=== PATIENT | female | born 1975 | race Caucasian/White ===

== ENCOUNTER 2019-12-28 08:49 | Outpatient (REF) | payer OTHER, SELFPAY ==
--- NOTE | 2019-12-28 | US_ITS ---
EXAMINATION: ULTRASOUND-GUIDED RIGHT CHEST WALL LESION CORE AND FINE-NEEDLE BIOPSY. CLINICAL INFORMATION: History of thyroid cancer. Abnormal whole body iodine study with a soft tissue lesion right anterior chest wall. COMPARISON: Nuclear medicine whole body iodine scan from [facility] 12/14/2019 TECHNIQUE: Following explaining ultrasound-guided biopsy procedure, benefits and risk of the right anterior chest wall mass, a written consent was obtained. Patient was placed supine on ultrasound stretcher and preliminary CT imaging was obtained through the chest wall. An optimal site was selected and marked. The marked site was cleaned and draped in usual sterile manner. 1% lidocaine was injected puncture site. A 25-gauge needle connected to syringes were advanced through the skin, subcutis tissues into the right anterior chest wall lesion and a 3 pass fine-needle biopsy was performed. Through a small skin incision a 19-gauge guide was inserted from this skin to the capsule of the lesion. Coaxially an 18-gauge 11 inch long biopsy needle was then inserted into the lesion and a 3 pass core biopsy was performed. Samples were handled by Dr. Rojas in pathology. Postprocedure the guide needle was withdrawn and complete hemostasis achieved. The appendix ultrasound imaging was obtained and was unremarkable. Simple band-aid applied post procedure. Patient tolerated procedure extremely well. FINDINGS: On preliminary ultrasound imaging there is a right anterior chest wall subcutis lesion measuring 1.55 x 1.66 x 0.69 cm. Successful ultrasound-guided trans cutaneous fine-needle and core biopsy performed of right anterior chest wall lesion without immediate complications. IMPRESSION: 1. Successful ultrasound-guided right anterior chest wall lesion, core and fine-needle biopsy performed. 2. Awaiting pathology results.
[2019-12-28] MEDS: Lidocaine HCl 1 % 20 ML VIAL 5 ML SUBCUT (10:49)
[2020-01-03 17:16] LABS: Thyroglobulin, Fine Needle Asp <0.1 ng/mL
== END 2019-12-28 08:50 | disposition home or self-care (01) ==
LOC: HO.US 08:49
PROVIDERS: Visit Provider Internal Medicine
DX: Z85.850 Personal history of malignant neoplasm of thyroid (principal)
CPT/HCPCS: 10005; 36415; 88172; 88173; 88177; 88300; 88305; 88333

== ENCOUNTER 2019-12-29 22:26 | Emergency (ER) | payer OTHER, SELFPAY ==
[2019-12-29 22:37] VITALS: BP 125/83; PULSE 109; RESP 16; TEMP 37; O2SAT 97; BMI 41.7
--- NOTE | 2019-12-29 23:57 | PC.NURSE ---
PT RE[place]TS [place] [facility] [place] BEGINNING LAST NIGHT, BROWN/RED TINGED DRAINAGE, AND FOUL ODOR REPORTED. SITE APPEARS CLEAN AND DRY AT THIS TIME. OPEN TO AIR. PT AWAITING MD PRIMARY EVAL.
[2019-12-30] MEDS: Amoxicillin/Potassium Clav 875 MG TABLET PO (00:45)
[2019-12-30] MEDS: HYDROcodone Bit/Acetam 5/325 TABLET 1 TAB PO (00:46)
[2019-12-30 00:51] VITALS: BP 116/80; PULSE 106; RESP 16; TEMP 37.1; O2SAT 97
--- NOTE | 2019-12-30 01:06 | ED.WOUNDLAC ---
HPI - Wound/Laceration General Chief Complaint: Wound/Laceration <FERNIE Villalobos Last Filed: 12/30/19 01:18> Stated Complaint: post op infection <FERNIE Villalobos Last Filed: 12/30/19 01:18> Time Seen by Provider: 12/30/19 00:03 <FERNIE Villalobos Last Filed: 12/30/19 01:18> Source: patient <Alyssia Chin NP - Last Filed: 12/30/19 01:18> Mode of arrival: ambulatory <FERNIE Villalobos Last Filed: 12/30/19 01:18> Limitations: no limitations <FERNIE Villalobos Last Filed: 12/30/19 01:18> History of Present Illness HPI narrative: patient presents with malodorous purulent drainage from biopsy site. States that she had a biopsy of an abscess under the lateral right breast Earlier today. She is complaining increased pain and concern about a purulent malodorous drainage. She does not have any fevers, chills, nausea, vomiting, diarrhea, chest pain or pressure, palpitations, shortness of breath, or any other concerning symptoms at this time. <FERNIE Villalobos Last Filed: 12/30/19 01:18> Onset (ago): day(s) ( 1) <Alyssia Chin NP - Last Filed: 12/30/19 01:18> Location: other ( Under right lateral breast) <FERNIE Villalobos Last Filed: 12/30/19 01:18> Patient tetanus UTD: Yes <Alyssia Chin NP - Last Filed: 12/30/19 01:18> Associated symptoms: pain <FERNIE Villalobos Last Filed: 12/30/19 01:18> Treatments prior to arrival: other ( biopsy earlier today) <FERNIE Villalobos Last Filed: 12/30/19 01:18> Related Data Home Medications: Previous Rx's Medication Instructions Recorded amoxicillin-pot clavulanate 1 tab PO BID #14 tab 12/30/19 [Augmentin] doxycycline monohydrate 100 mg PO BID 10 Days #20 cap 12/30/19 hydrocodone-acetaminophen 1 tab PO Q8H PRN #7 tab 12/30/19 <Alyssia Chin NP - Last Filed: 12/30/19 01:18> Allergies/Adverse Reactions: Allergies Allergy/AdvReac Type Severity Reaction Status Date / Time oxycodone [OXYCODONE] Allergy Intermediate RASH,SHAKES, Verified 12/29/19 22:37 shakiness, body shaking, tremors <Alyssia Chin NP - Last Filed: 12/30/19 01:18> Review of Systems Review of Systems: Yes all other systems are reviewed and are negative <Alyssia Chin NP - Last Filed: 12/30/19 01:18> Constitutional: Constitutional: Reports no additional constitutional complaints, Denies chills, Denies fatigue and Denies malaise <Alyssia Chin NP - Last Filed: 12/30/19 01:18> Eyes: Eyes: Reports no additional eye complaints <Alyssia Chin NP - Last Filed: 12/30/19 01:18> ENT: Reports system reviewed and no additional complaints, except as documented <Alyssia Chin NP - Last Filed: 12/30/19 01:18> Cardiovascular: Cardiovascular: Reports no additional cardiovascular complaints, Denies irregular heart rhythm, Denies palpitations and Denies dyspnea <Alyssia Chin NP - Last Filed: 12/30/19 01:18> Respiratory: Respiratory: Reports no additional respiratory complaints and Denies dyspnea <Alyssia Chin NP - Last Filed: 12/30/19 01:18> Gastrointestinal: Gastrointestinal: Reports no additional gastrointestinal complaints, Denies abdominal pain, Denies nausea and Denies vomiting <Alyssia Chin NP - Last Filed: 12/30/19 01:18> Genitourinary: Genitourinary: Reports no additional female genitourinary complaints <Alyssia Chin NP - Last Filed: 12/30/19 01:18> Musculoskeletal: Musculoskeletal: Reports no additional musculoskeletal complaints <Alyssia Chin NP - Last Filed: 12/30/19 01:18> Comments: surgery in November for tib-fib fracture, currently wearing a Cam walker boot <Alyssia Chin NP - Last Filed: 12/30/19 01:18> Integumentary/Breasts: Skin/Breast: Reports swelling, Reports lesions, Reports skin pain and Reports wounds <Alyssia Chin NP - Last Filed: 12/30/19 01:18> Neurologic: Reports system reviewed and no additional complaints, except as documented and Reports Abnormal speech present <Alyssia Chin NP - Last Filed: 12/30/19 01:18> Psychiatric: Psychiatric: Reports no additional psychiatric complaints <Alyssia Chin NP - Last Filed: 12/30/19 01:18> Endocrine: Endocrine: Reports no additional endocrine complaints, Denies fatigue and Denies palpitations <Alyssia Chin NP - Last Filed: 12/30/19 01:18> Hematologic/Lymphatic: Hematologic/Lymphatic: Reports no additional hematologic/lymphatic complaints <Alyssia Chin NP - Last Filed: 12/30/19 01:18> [facility] Past Medical History Attestation statement: The following information was validated with the patient. <Alyssia Chin NP - Last Filed: 12/30/19 01:18> Source: old records reviewed <Alyssia Chin NP - Last Filed: 12/30/19 01:18> Medical History: Medical History (Updated 12/30/19 @ 00:29 by Alyssia Chin NP) Abnormal thyroid exam Asthma Fracture HTN (hypertension) Migraine Vertigo <Alyssia Chin NP - Last Filed: 12/30/19 01:18> Social History Social History: Social History Alcohol intake: never Smoking Status: Never smoker Smoked in Last 30 Days: No Use of substances other than those prescribed or required for medical reasons: No Advance Directives: No Advance Directives Information Provided: No <Alyssia Cihn NP - Last Filed: 12/30/19 01:18> Physical Exam Vital Signs and I&O and Narrative: Vital Signs and I&O: Vital Signs Temp 98.7 F 12/30/19 00:51 Pulse 106 H 12/30/19 00:51 Resp 16 12/30/19 00:51 BP 116/80 12/30/19 00:51 Pulse Ox 97 12/30/19 00:51 Intake & Output 1012/29/19 12/30/19 06:59 18:59 06:59 Weight 103.419 kg Body Mass Index 41.7 <Alyssia Chin NP - Last Filed: 12/30/19 01:18> Vital Signs and I&O: Vital Signs Temp 98.7 F 12/30/19 00:51 Pulse 106 H 12/30/19 00:51 Resp 16 12/30/19 00:51 BP 116/80 12/30/19 00:51 Pulse Ox 97 12/30/19 00:51 Intake & Output 12/29/19 12/29/19 12/30/19 06:59 18:59 06:59 Weight 103.419 kg Body Mass Index 41.7 <Adebayo Mcdaniel DO - Last Filed: 12/30/19 01:28> Const: General: cooperative, healthy appearing, comfortable, no acute distress, well developed, awake and Physically active <Alyssia Chin NP - Last Filed: 12/30/19 01:18> Nutritional Appearance: overweight <Alyssia Chin NP - Last Filed: 12/30/19 01:18> Orientation/consciousness: patient oriented x3 <Alyssia Chin NP - Last Filed: 12/30/19 01:18> Limitations: no limitations <Alyssia Chin NP - Last Filed: 12/30/19 01:18> HENMT: Head: Yes normal to inspection <Alyssia Chin NP - Last Filed: 12/30/19 01:18> Ears: hearing grossly normal bilaterally <Alyssia Chin NP - Last Filed: 12/30/19 01:18> Eyes: General: appearance normal, both eyes and all related structures <Alyssia Chin NP - Last Filed: 12/30/19 01:18> Pupils: Equal, round and reactive pupils present <Alyssia Chin NP - Last Filed: 12/30/19 01:18> EOM: EOMs intact bilaterally <Alyssia Chin NP - Last Filed: 12/30/19 01:18> Neck: Neck: Yes normal visual inspection <Alyssia Chin NP - Last Filed: 12/30/19 01:18> Chest: Chest palpation & inspection: normal inspection of the chest <Alyssia Chin NP Last Filed: 12/30/19 01:18> Breast/axilla palpation: normal palpation of the breasts, normal palpation of the axillae and no axillary lymphadenopathy <Alyssia Chin NP Last Filed: 12/30/19 01:18> Resp: Effort & Inspection: normal respiratory effort and able to speak in complete sentences <Alyssia Chin NP Last Filed: 12/30/19 01:18> Auscultation: clear to auscultation bilaterally <Alyssia Chin [facility] Last Filed: 12/30/19 01:18> Cardio: Jugular venous distension: no JVD <Alyssia Chin NP Last Filed: 12/30/19 01:18> Rate: regular rate <Alyssia Chin NP Last Filed: 12/30/19 01:18> Rhythm: regular rhythm <Alyssia Chin NP Last Filed: 12/30/19 01:18> GI: Inspection: Yes normal to inspection <Alyssia Chin NP Last Filed: 12/30/19 01:18> Back/Spine/Pelvis: Thoracic/Lumbar Spine: thoracic and lumbar spine normal to inspection <Alyssia Chin NP Last Filed: 12/30/19 01:18> Skin: Other: less than 1 cm area of pink, non indurated area On the chest wall under the lateral right breast. Needle puncture wound visible, fluid can be expressed from that puncture site, puncture site consistent with needle biopsy from earlier today. <Alyssia Chin NP Last Filed: 12/30/19 01:18> Rashes: no rashes <Alyssia Chin NP Last Filed: 12/30/19 01:18> Trauma: no lacerations or abrasions <Alyssia Chin NP Last Filed: 12/30/19 01:18> Wounds: wounds noted ( ) <Alyssia Chin NP Last Filed: 12/30/19 01:18> Neuro: General: patient oriented x3 and moves all extremities <Alyssia Chin NP Last Filed: 12/30/19 01:18> Cranial nerves: Yes CN's II-XII intact bilaterally, Yes Facial sensation intact/muscles of mastication intact and Yes Equal, round and reactive pupils present <Alyssia Chin NP - Last Filed: 12/30/19 01:18> Cognition (Neuro): normal cognition <Alyssia Chin NP - Last Filed: 12/30/19 01:18> Speech: Abnormal speech present <Alyssia Chin NP - Last Filed: 12/30/19:18> Gait exam (Neuro): Normal gait present ( Walks well with a cam walker boot) <Alyssia Chin NP - Last Filed: 12/30/19 01:18> Extrem: General: Yes normal to inspection <Alyssia Chin NP - Last Filed: 12/30/19 01:18> Psych: Appearance: grossly normal <Alyssia Chin NP - Last Filed: 12/30/19 01:18> Mental Status: mental status grossly normal <Alyssia Chin NP - Last Filed: 12/30/19 01:18> Speech and movement: Normal speech and movement present <FERNIE Villalobos Last Filed: 12/30/19 01:18> Affect: normal affect ( pleasant demeanor) <Alyssia Chin NP - Last Filed: 12/30/19 01:18> Attitude: cooperative <Alyssia Chin NP - Last Filed: 12/30/19 01:18> Thought process: Normal thought process present <FERNIE Villalobos Last Filed: 12/30/19 01:18> Course Course Hospital Course: 42 year female with pain and purulent drainage from biopsy site earlier today. Plan is to clean the site, culture, and treat with p.o. antibiotics and pain management. Patient verbalized understanding of and agrees to plan of care to discharge home. <FERNIE Villalobos Last Filed: 12/30/19 01:18> MDM - Wound/Laceration Differential Diagnosis Differential diagnosis: Likely abscess <FERNIE Villalobos Last Filed: 12/30/19 01:18> Medical Records Attestation: I reviewed the patient's medical records. <FERNIE Villalobos Last Filed: 12/30/19 01:18> Discharge Plan Discharge Clinical Impression: Abscess <Alyssia Chin NP - Last Filed: 12/30/19 01:18> Patient Disposition: Home, Self-Care <Alyssia Chin NP - Last Filed: 12/30/19 01:18> Instructions: Abscess (ED), Warm Compress or Soak (ED) <Alyssia Chin NP - Last Filed: 12/30/19 01:18> Additional Instructions: please follow-up with the provider that biopsied this site. We did take a culture of the fluids that were expressed from this abscess site. Please take antibiotics as directed. You must complete both antibiotics . follow-up with primary care physician as needed. Return to the emergency department for any new, concerning, or worsening symptoms. <Alyssia Chin NP - Last Filed: 12/30/19 01:18> Prescriptions: New doxycycline monohydrate 100 mg capsule 100 mg PO BID 10 Days Qty: 20 RF: 0 amoxicillin-pot clavulanate [Augmentin] 875-125 mg tablet 1 tab PO BID Qty: 14 RF: 0 hydrocodone-acetaminophen 5-300 mg tablet 1 tab PO Q8H PRN (Reason: pain) Qty: 7 RF: 0 <Alyssia Chin NP - Last Filed: 12/30/19 01:18> Interventions: ED Discharge Assessment Last Done: 12/30/19 01:20 <Alyssia Chin NP - Last Filed: 12/30/19 01:18> Discharge Date/Time: 12/30/19 01:21 <Alyssia Chin NP - Last Filed: 12/30/19 01:18>
== END 2019-12-30 01:21 | disposition home or self-care (01) ==
PROVIDERS: Emergency Provider Emergency Medicine; PCP Internal Medicine
DX: L02.818 Cutaneous abscess of other sites (principal); Z98.890 Other specified postprocedural states; I10 Essential (primary) hypertension
CPT/HCPCS: 87071; 87205; 99283; 99284

== ENCOUNTER 2019-12-31 15:31 | Emergency (ER) | payer OTHER, SELFPAY ==
[2019-12-31 16:59] VITALS: BP 137/80; PULSE 98; RESP 18; TEMP 36.8; O2SAT 100; BMI 41.7
--- NOTE | 2019-12-31 22:19 | PC.NURSE ---
[employer] C/O NUMNESS/COLDNESS IN DIGITS/PAIN IN ARM ON RT SIDE. PATIENT VS STABLE. PATIENT NEUROS INTACT. PATIENT UPDATED ON PLAN OF CARE.
[2019-12-31 22:27] VITALS: BP 145/95; PULSE 80; RESP 18; TEMP 37.3
[2019-12-31 23:45] LABS: MANUAL DIFF FLAG NO
[2019-12-31 23:46] LABS: Basophils Absolute Auto 0.1 X10*3/uL (0.0-0.2); Basophils Percent Auto 0.4 % (0-2); Eosinophils Absolute Auto 0.1 X10*3/uL (0.0-0.4); Eosinophils Percent Auto 0.9 % (0-4); Hematocrit 38.1 % (37-47); Hemoglobin 12.8 g/dl (12.0-16.0); Imm Gran Abs Auto 0.05 X10*3/uL (0.00-0.03); Imm Gran Pct Auto 0.4 % (0.0-0.4); Lymphocytes Absolute Auto 2.2 X10*3/uL (1.2-4.9); Lymphocytes Percent Auto 18.1 % (20-40); Mean Corpuscular HGB Conc 33.6 g/dl (31.0-35.0); Mean Corpuscular Hemoglobin 30.8 pg (27.0-33.0); Mean Corpuscular Volume 91.8 fL (80-98); Monocytes Absolute Auto 0.9 X10*3/uL (0.1-1.2); Monocytes Percent Auto 7.7 % (2-11); Neutrophils Absolute Auto 8.8 X10*3/uL (2.0-8.3); Neutrophils Percent Auto 72.5 % (45-73); Platelet Count 367 X10*3/uL (160-400); Red Blood Count 4.15 X10*6/uL (4.20-5.50); Red Cell Distribution Width 11.9 % (11.0-16.0); White Blood Count 12.2 X10*3/uL (4.8-10.8)
[2019-12-31 23:51] LABS: INTERNATIONAL NORM RATIO 1.3 (0.9-1.1); Prothrombin Time 15.7 SEC (10.8-13.0)
[2019-12-31 23:54] LABS: Partial Thromboplastin Time 33.8 SEC (24.1-38.0)
[2020-01-01 02:00] VITALS: BP 97/50; PULSE 97; RESP 16; TEMP 36.7; O2SAT 95
[2020-01-01 02:27] LABS: Anion Gap 14 (12-20); Blood Urea Nitrogen 14 mg/dL (9-16); Calcium 9.2 mg/dL (8.4-10.2); Carbon Dioxide 25 mmol/L (22-29); Chloride 103 mmol/L (96-108); Creatinine Clr Calc Pharmacy 155.9; Estimated Glomerular Filt Rate > 60; Glucose Random 101 mg/dL (60-115); Sodium 138 mmol/L (135-145)
--- NOTE | 2020-01-01 02:41 | ED_ITS ---
HPI - Skin/Abscess/Foreign Bdy General Chief complaint: Skin/Abscess/Foreign Body Stated complaint: Wound Check Time Seen by Provider: 01/01/20 02:40 Source: patient Mode of arrival: ambulatory Limitations: no limitations History of Present Illness HPI narrative: This is a 44-year-old female who presents after having a breast biopsy on Tuesday and then states developing redness and swelling to the right inframammary area with noted purulence discharge and was evaluated on 12/29 here in the emergency department where she underwent an incision and drainage and was discharged on Augmentin/doxycycline. She now presents with persistent discomfort as well as redness and states that she felt warm earlier in the day. Related Data Previous Rx's Medication Instructions Recorded amoxicillin-pot clavulanate 1 tab PO BID #14 tab 12/30/19 [Augmentin] doxycycline monohydrate 100 mg PO BID 10 Days #20 cap 12/30/19 hydrocodone-acetaminophen 1 tab PO Q8H PRN #7 tab 12/30/19 Allergies Allergy/AdvReac Type Severity Reaction Status Date / Time oxycodone [OXYCODONE] Allergy Intermediate RASH,SHAKES, Verified 12/29/19 22:37 shakiness, body shaking, tremors Review of Systems Review of Systems: Pertinent positives and negatives as stated in HPI 10 point review systems is otherwise negative. [facility] Past Medical History Source: nursing notes reviewed Medical History Abnormal thyroid exam Asthma Fracture HTN (hypertension) Migraine Vertigo Social History Social History Alcohol intake: never Smoking Status: Never smoker Use of substances other than those prescribed or required for medical reasons: Unknown Advance Directives: No Advance Directives Information Provided: No Physical Exam Vital Signs and I&O and Narrative: Vital Signs and I&O: Vital Signs Temp 98.1 F 01/01/20 02:00 Pulse 97 01/01/20 02:00 Resp 16 01/01/20 02:00 BP 97/50 L 01/01/20 02:00 Pulse Ox 95 01/01/20 02:00 Intake & Output 12/31/19 12/31/19 01/01/20 06:59 18:59 06:59 Weight 103.419 kg Body Mass Index 41.7 VITAL SIGNS: Reviewed. GENERAL: Well developed, well nourished, in no acute distress. HEAD: Normocephalic/atraumatic, Posterior oropharynx was without edema, erythema or exudate. EYES: PERRLA, Pupils <>, EOMI intact without pain, no nystagmus/pallor/icterus noted EARS: Ext canals without abnormality, TMs non-bulging and non-erythematous NOSE: Nares patent bilateral OROPHARYNX: no oral lesions noted, posterior pharynx clear and non-erythematous without noted tonsillar enlargement/erythema/exudates NECK: Supple, no adenopathy LUNGS: Normal breath sounds. No adventitious sounds or accessory muscle use. SpO2<> CARDIOVASCULAR: Regular rate and rhythm without noted murmurs, no JVD or lower extremity edema. Right chest: There is an area of 1.5 cm by 3 cm of induration without noted fluctuance or observed drainage. ABDOMEN: Soft, non-tender, non-distended with bowel sounds. No rigidity. No guarding. No palpable masses or hernias noted MUSCULOSKELETAL: No tenderness, deformities, or effusions noted on gross inspection. EXTREMITIES: No cyanosis, clubbing or edema. SKIN: Inspection of the skin reveals no rashes, ulcerations, jaundice, pallor, or petechiae. NEUROLOGIC: Alert and oriented x 3. Strength and sensation to light touch were grossly intact x 4. Course Course Course Narrative: This is a 44-year-old female with history and clinical presentation consistent with localized cellulitis without abscess and recently started on antibiotics. There are no concerning symptoms of systemic symptoms and although there is a very mild leukocytosis there is no recent point of reference to determine whether not this is arise or a fall and is consistent with having underwent incision and drainage on 12/29. MDM - Skin/Abscess/Foreign Bdy Lab Data Result diagrams: 12/31/19 23:36 12/31/19 23:41 Labs: Lab Results 12/31/19 12/31/19 12/31/19 Range/Units 23:36 23:36 23:41 WBC 12.2 H (4.8-10.8) X10*3/uL RBC 4.15 L (4.20-5.50) X10*6/uL Hgb 12.8 (12.0-16.0) g/dl Hct 38.1 (37-47) % MCV 91.8 (80-98) fL MCH 30.8 (27.0-33.0) pg MCHC 33.6 (31.0-35.0) g/dl RDW 11.9 (11.0-16.0) % Plt Count 367 (160-400) X10*3/uL MPV 10.0 (9.4-12.3) fL Immature Gran % (Auto) 0.4 (0.0-0.4) % Neut % (Auto) 72.5 (45-73) % Lymph % (Auto) 18.1 L (20-40) % [place] % (Auto) 7.7 (2-11) % Eos % (Auto) 0.9 (0-4) % Baso % (Auto) 0.4 (0-2) % Neut # (Auto) 8.8 H (2.0-8.3) X10*3/uL Lymph # (Auto) 2.2 (1.2-4.9) X10*3/uL [place] # (Auto) 0.9 (0.1-1.2) X10*3/uL Eos # (Auto) 0.1 (0.0-0.4) X10*3/uL Baso # (Auto) 0.1 (0.0-0.2) X10*3/uL Abs Immat Gran (auto) 0.05 H (0.00-0.03) X10*3/uL Absolute Nucleated RBC 0.000 (0.0-0.012) X10*3/uL Nucleated RBC % (auto) 0.0 (0.0-0.2) /100WBC PT 15.7 H (10.8-13.0) SEC INR 1.3 H (0.9-1.1) APTT 33.8 (24.1-38.0) SEC Sodium 138 (135-145) mmol/L Potassium 4.0 (3.3-5.1) mmol/l Chloride 103 (96-108) mmol/L Carbon Dioxide 25 (22-29) mmol/L Anion Gap 14 (12-20) BUN 14 (9-16) mg/dL Creatinine 0.53 (0.5-1.4) mg/dL Estim Creat Clear Calc 155.9 Estimated GFR > 60 Random Glucose 101 (60-115) mg/dL Calcium 9.2 (8.4-10.2) mg/dL Discharge Plan Discharge Clinical Impression: Cellulitis Qualifiers: Site of cellulitis: trunk Site of cellulitis of trunk: chest wall Qualified Code(s): L03.313 - Cellulitis of chest wall Patient Disposition: Home, Self-Care Instructions: Cellulitis (ED) Additional Instructions: 1. resume all home medications as prescribed. 2. continue with warm moist compresses to the area, 5-10 minutes, 3 times a day. 3. please follow-up with your primary care provider tomorrow morning as well as contacting the provider who performed the biopsy for further evaluation. The patient and/or family acknowledge understanding of results (as applicable), diagnosis, treatment plan, need for follow up, and symptoms that should prompt a return to the emergency room. Prescriptions: No Action doxycycline monohydrate 100 mg capsule 100 mg PO BID 10 Days Qty: 20 RF: 0 amoxicillin-pot clavulanate [Augmentin] 875-125 mg tablet 1 tab PO BID Qty: 14 RF: 0 hydrocodone-acetaminophen 5-300 mg tablet 1 tab PO Q8H PRN (Reason: pain) Qty: 7 RF: 0 Referrals: Po,Tamela Enriquez MD [Primary Care Provider] - 2 days
--- NOTE | 2020-01-01 02:54 | PC.NURSE ---
MD at bedside discussing plan to DC home.
[2020-01-01 03:09] VITALS: BP 113/64; PULSE 87; RESP 16; O2SAT 99
== END 2020-01-01 03:19 | disposition home or self-care (01) ==
PROVIDERS: Emergency Provider Student in an Organized Health Care Education/Training Program; PCP Internal Medicine
DX: L03.313 Cellulitis of chest wall (principal); I10 Essential (primary) hypertension; Z79.899 Other long term (current) drug therapy
CPT/HCPCS: 36415; 80048; 85025; 85610; 85730; 99283; 99284

== ENCOUNTER → 2020-01-03 15:19 | Outpatient (BNVA) | payer OTHER, SELFPAY | PROVIDERS: PCP Internal Medicine; Visit Provider Surgery | DX: L02.213 Cutaneous abscess of chest wall (principal) | CPT/HCPCS: 10060; 99203 ==

== ENCOUNTER → 2020-01-09 10:15 | Outpatient (BNVA) | payer OTHER, SELFPAY | PROVIDERS: PCP Internal Medicine; Referring Provider Internal Medicine; Visit Provider Internal Medicine | DX: E89.0 Postprocedural hypothyroidism (principal); E55.9 Vitamin D deficiency, unspecified; Z85.850 Personal history of malignant neoplasm of thyroid | CPT/HCPCS: 99214; Q3014 ==

== ENCOUNTER 2020-04-22 15:48 | Emergency (ER) | payer OTHER, SELFPAY ==
--- NOTE | 2020-04-22 17:27 | CT_ITS ---
EXAMINATION: CT ABDOMEN AND PELVIS WITHOUT CONTRAST CLINICAL INFORMATION: Left flank pain. COMPARISON: December 14, 2018. TECHNIQUE: Contiguous axial thin section helical images of the abdomen and pelvis were performed without oral or IV contrast. The data set was reformatted in the coronal and sagittal planes and reviewed on an independent workstation. DLP: 890 mGy-cm. FINDINGS: The visualized lung bases are clear. The visualized portions of the heart are unremarkable. The liver is of normal size and diffuse decreased attenuation without focal lesions nor intrahepatic biliary ductal dilation. The patient is status post cholecystectomy. Surgical clips are present. The spleen, pancreas, adrenal glands are unremarkable. Both kidneys are of normal size and attenuation. Within the lower pole of the right kidney, there is a 2 mm nonobstructive calculus. There are a few subcentimeter nonobstructive calculi within the left kidney. There is left grade 2 hydroureteronephrosis secondary to an obstructive 4 mm left UVJ calculus. There is left perinephric stranding. There is no abdominal free fluid. There is neither mesenteric nor retroperitoneal lymphadenopathy. Normal unopacified loops of small and large bowel are identified. There is a 5.8 cm left adnexal low-attenuation lesion which is slightly increased in size from prior exam at which time it measured 5.1 cm. An IUD is in place. There is no pelvic free fluid. The urinary bladder is unremarkable. There is neither pelvic nor inguinal lymphadenopathy. Bone windows: Neither sclerotic nor lytic bone lesions are identified. Posterior spinal fusion hardware extending from L5 to S1 is intact without failure or migration. CT/CT abdomen pelvis wo con IMPRESSION: Left grade 2 hydroureteronephrosis secondary to an approximately 4 mm obstructive left UVJ calculus. Hepatic steatosis. Status post cholecystectomy. Nonobstructive renal calculi bilaterally. Slight interval increase in size of left adnexal lesion since the most recent prior exam. Consider correlation with pelvic ultrasound or MRI as deemed clinically appropriate. Automated exposure control (Care Dose) Adjustment of the mA and/or kv according to patient size (this includes techniques or standardized protocols for targeted exams where dose is matched to indication / reason for exam; i.e. extremities or head).
[2020-04-22 17:30] VITALS: BP 148/82; BP 148/85; PULSE 89; RESP 17; RESP 19; TEMP 36.4; O2SAT 99; BMI 41.5
--- NOTE | 2020-04-22 17:30 | ED.FEMALEGU ---
HPI - Female Genitourinary General Chief complaint: Urogenital-Female Stated complaint: Kidney Infection? Time Seen by Provider: 04/22/20 16:34 Source: patient Mode of arrival: ambulatory Limitations: no limitations History of Present Illness HPI Narrative: 45-year-old female who presents emergency department for evaluation of left flank pain , dark urine and frequency. The patient states she has a history of kidney infections and kidney stones. She states that this morning she developed sudden onset of sharp, constant, left flank pain. The pain is 10/10 at its worst. The pain is worse with movement. She denied associated fever chills vomiting. She did have associated nausea, urinary frequency and urinary urgency. The patient states the pain feels similar to when she has had a kidney infection in the past. She believes that her was kidney infection was greater than 3 years prior. Related Data Home Medications Medication Instructions Recorded Confirmed albuterol sulfate 90 mcg/actuation 2 puff INHALATION Q4-6H PRN 01/03/20 01/09/20 aerosol inhaler mbknkhfrvy-sfnozerwjnakz-wkxihqiq 1 cap PO Q4-6H PRN 01/03/20 01/09/20 50 mg-300 mg-40 mg capsule cholecalciferol (vitamin D3) 25 25 mcg PO DAILY 01/03/20 01/09/20 mcg (1,000 unit) capsule meclizine 25 mg tablet 25 mg PO TID 01/03/20 01/09/20 levothyroxine 125 mcg capsule 125 mcg PO DAILY 01/09/20 01/09/20 Previous Rx's Medication Instructions Recorded hydrocodone-acetaminophen 1 tab PO Q8H PRN #7 tab 12/30/19 thyrotropin char 0.9 mg IM DAILY #2 ml 01/09/20 levothyroxine 150 mcg capsule 150 mcg PO QAM #30 cap 01/28/20 naproxen 500 mg tablet 500 mg PO BID PRN #60 tab 01/30/20 sumatriptan succinate 50 mg tablet 50 mg PO DAILY PRN #10 tab 03/24/20 lisinopril 30 mg tablet 30 mg PO DAILY #30 tab 04/03/20 ketorolac 10 mg PO QID 5 Days #20 tab 04/22/20 tamsulosin [Flomax] 0.4 mg PO BEDTIME #30 cap 04/22/20 Allergies Allergy/AdvReac Type Severity Reaction Status Date / Time oxycodone [OXYCODONE] Allergy Intermediate RASH,SHAKES, Verified 01/09/20 09:46 shakiness, body shaking, tremors Review of Systems Review of Systems: Yes all other systems are reviewed and are negative Neurologic: Reports Abnormal speech present [facility] Past Medical History Source: unable to obtain Medical History (Updated 04/22/20 @ 19:23 by Nik Decker MD) Asthma Closed right ankle fracture Family history of von Willebrand disease History of renal calculi History of thyroid cancer HTN (hypertension) Hypercholesterolemia Hypothyroid Impaired glucose tolerance 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 Lumbar disc herniation Migraine Obesity Patellar fracture Pericardial effusion Vertigo Vitamin D deficiency Surgical History History of back surgery History of bladder surgery History of section History of cholecystectomy History of thyroid surgery Family History Family History Daughter Von Willebrand disease Other Family history of bladder cancer Family history of breast cancer Family history of lung cancer Family history of prostate cancer Social History Social History Alcohol intake: never Smoking Status: Never smoker Smoked in Last 30 Days: No Use of substances other than those prescribed or required for medical reasons: No Advance Directives: No Advance Directives Information Provided: No Physical Exam Vital Signs: Vital Signs: Last Vital Signs Temp 97.6 F 04/22/20 17:30 Pulse 89 04/22/20 17:30 Resp 19 04/22/20 17:30 BP 148/85 H 04/22/20 17:30 Pulse Ox 99 04/22/20 17:30 Body Mass Index 41.5 Const: General: cooperative and healthy appearing Nutritional Appearance: obese Orientation/consciousness: oriented to person and oriented to place Limitations: no limitations HENMT: Head: Yes normal to inspection, Yes normocephalic and Yes atraumatic Ears: external ears normal General nose exam: Normal external nose present Face and sinus: Yes normal facial exam Mouth: Normal oral and palatal mucosa present Throat: Yes posterior oropharynx normal Eyes: Periorbital: periorbital findings normal Eyelids: Yes eyelids normal Conjunctivae: conjunctivae normal Sclerae: sclerae normal Corneas: corneas normal Pupils: Equal, round and reactive pupils present Direct Ophthalmoscopy: normal light reflex Neck: Neck: Yes full ROM, Yes no lymphadenopathy, Yes no meningeal signs, Yes trachea midline and Yes supple Chest: Chest palpation & inspection: normal inspection of the chest and normal palpation of entire chest wall Resp: Effort & Inspection: normal respiratory effort and able to speak in complete sentences Auscultation: clear to auscultation bilaterally Cardio: Rate: regular rate Rhythm: regular rhythm Heart sounds: S1 normal heart sound present, S2 normal heart sound present and no murmurs GI: Inspection: Yes normal to inspection Palpation (GI): Soft to palpation, Tenderness to palpation present (GI) suprapubicly (Mild), no guarding, not rigid and No hepatosplenomegaly present : General: Yes CVA tenderness on the left (Moderate) Back/Spine/Pelvis: Back: CVA tenderness Cervical Spine: normal cervical lordosis Thoracic/Lumbar Spine: thoracic and lumbar spine normal to inspection Skin: Lesions: no lesions Rashes: no rashes Wounds: no wounds Neuro: General: oriented to person, oriented to place and no meningeal signs Cranial nerves: Yes CN's II-XII intact bilaterally and Yes Equal, round and reactive pupils present Cognition (Neuro): normal cognition Speech: Abnormal speech present Motor exam (neuro): 5/5 motor strength present throughout Extrem: General: Yes normal to inspection and Yes full ROM Psych: Appearance: well kempt Mental Status: mental status grossly normal Speech and movement: Normal speech and movement present Affect: normal affect Attitude: cooperative Thought process: Normal thought process present Thought content: Normal thought content present Course Course Course Narrative: 45-year-old female with a history kidney stones and kidney infections in the past who presents with sudden onset of left-sided flank pain, dark urine, urinary frequency and urgency. Physical examination did reveal suprapubic tenderness as well as left CVA tenderness. I did order workup to include blood work, urinalysis, urine and CT scan of the abdomen pelvis to evaluate for possible kidney stone versus pyelonephritis. 1919: The patient's laboratory evaluation revealed normal kidney function, she has a slight elevation in her AST and ALT of 35 and 37, urinalysis was positive for blood, microscopic revealed 30-49 RBCs, 0-[address] scan of the abdomen pelvis without IV contrast revealed a 4 mm left ureteral stone with hydroureter, perinephric stranding, bilateral renal calculi and a 5.8 cm left ovarian cyst. The patient's ureteral stone explains the patient's pain. The patient is currently pain-free after receiving IV Toradol. The patient states that she has taken oral Toradol in the past for kidney stones and this has helped. The patient will be given a prescription for Toradol and for Flomax. She was advised to strain her urine and to follow-up with her urologist, Dr. Winslow for re-evaluation. She was given verbal and printed instructions. MDM - Female Genitourinary Lab Data Result diagrams: 04/22/20 18:17 04/22/20 18:17 Labs: Lab Results 04/22/20 04/22/20 04/22/20 Range/Units 18:17 18:17 18:17 WBC 11.5 H (4.8-10.8) X10*3/uL RBC 4.49 (4.20-5.50) X10*6/uL Hgb 13.6 (12.0-16.0) g/dl Hct 40.9 (37-47) % MCV 91.1 (80-98) fL MCH 30.3 (27.0-33.0) pg MCHC 33.3 (31.0-35.0) g/dl RDW 11.9 (11.0-16.0) % Plt Count 345 (160-400) X10*3/uL MPV 9.8 (9.4-12.3) fL Immature Gran % (Auto) 0.3 (0.0-0.4) % Neut % (Auto) 73.2 H (45-73) % Lymph % (Auto) 17.8 L (20-40) % [place] % (Auto) 7.6 (2-11) % Eos % (Auto) 0.7 (0-4) % Baso % (Auto) 0.4 (0-2) % Lymph # (Auto) 2.1 (1.2-4.9) X10*3/uL [place] # (Auto) 0.9 (0.1-1.2) X10*3/uL Eos # (Auto) 0.1 (0.0-0.4) X10*3/uL Baso # (Auto) 0.1 (0.0-0.2) X10*3/uL Abs Immat Gran (auto) 0.04 H (0.00-0.03) X10*3/uL Absolute Neuts (auto) 8.4 H (2.0-8.3) X10*3/uL Absolute Nucleated RBC 0.000 (0.0-0.012) X10*3/uL Nucleated RBC % (auto) 0.0 (0.0-0.2) /100WBC Sodium 140 (135-145) mmol/L Potassium 4.0 (3.3-5.1) mmol/l Chloride 102 (96-108) mmol/L Carbon Dioxide 30 H (22-29) mmol/L Anion Gap 12 (12-20) BUN 12 (9-16) mg/dL Creatinine 0.58 (0.5-1.4) mg/dL Estim Creat Clear Calc 140.6 Estimated GFR > 60 Random Glucose 88 (60-115) mg/dL Calcium 9.3 (8.4-10.2) mg/dL Total Bilirubin 0.5 (0.0-1.0) mg/dL AST 35 H (5-31) U/L ALT 37 H (0-31) U/L Alkaline Phosphatase 78 (39-117) U/L Total Protein 6.7 (6.5-8.0) g/dL Albumin 4.3 (3.5-5.0) g/dL Urine Color YELLOW Urine Appearance HAZY Urine pH 6.0 (5.0-8.0) Ur Specific [place] 1.020 (1.005-1.025) Urine Protein NEG (NEG-TRACE) MG/DL Urine Glucose (UA) NEG (NEG) MG/DL Urine Ketones NEG (NEG) MG/DL Urine Blood 3+ H (NEG) Urine Nitrite NEG (NEG) Ur Leukocyte Esterase NEG (NEG) Urine RBC 30-49 H (0) /HPF Urine WBC 0-2 (0-4) /HPF Ur Squamous Epith Cells 1+ /LPF Urine Bacteria NONE /LPF Discharge Plan Discharge Clinical Impression: Acute left flank pain, Calculus of left ureter, Hydronephrosis of left kidney Patient Disposition: Home, Self-Care Instructions: Kidney Stones (ED), How to Strain Your Urine (ED) Additional Instructions: The CT scan of your abdomen and pelvis revealed a 4 mm left ureteral stone (stone in the tube that connects the kidney to the bladder). This is the cause of your left-sided pain. You also have stones in both kidneys which are not causing her pain, you have fatty liver, you also have a left ovarian cyst. These are incidental findings and not related to your pain. Take Toradol (ketorolac) 10 mg, 1 pill 4 times a day as needed for pain. Take Tylenol (acetaminophen) 500 mg pills, 2 pills every 4 to 6 hours as needed for pain. Take Flomax 0.4 mg once a day until he passed the stone. Strain your urine. Follow-up with your urologist, Dr. Winslow within 1 week Please return to the emergency department if your symptoms get worse or if you develop any symptoms that are concerning to you. Prescriptions: New ketorolac 10 mg tablet 10 mg PO QID 5 Days Qty: 20 RF: 0 tamsulosin [Flomax] 0.4 mg capsule 0.4 mg PO BEDTIME Qty: 30 RF: 0 No Action Tirosint 150 mcg capsule 150 mcg PO QAM Qty: 30 RF: 3 sumatriptan succinate 50 mg tablet 50 mg PO DAILY PRN (Reason: for headache) Qty: 10 RF: 10 lisinopril 30 mg tablet 30 mg PO DAILY Qty: 30 RF: 5 hydrocodone-acetaminophen 5-300 mg tablet 1 tab PO Q8H PRN (Reason: pain) Qty: 7 RF: 0 cholecalciferol (vitamin D3) 25 mcg (1,000 unit) capsule 25 mcg PO DAILY RF: 0 meclizine 25 mg tablet 25 mg PO TID RF: 0 fsxgisktex-uodcfhqaqotov-pkny [Fioricet] 50-300-40 mg capsule 1 cap PO Q4-6H PRNRF: 0 albuterol sulfate [ProAir HFA] 90 mcg/actuation HFA aerosol inhaler 2 puff inhalation Q4-6H PRNRF: 0 naproxen 500 mg tablet 500 mg PO BID PRN (Reason: pain) Qty: 60 RF: 0 Tirosint 125 mcg capsule 125 mcg PO DAILY RF: 0 Thyrogen 1.1 mg (0.9 mg/ mL final conc.) recon soln 0.9 mg IM DAILY Qty: 2 RF: 0 Referrals: Marcio Winslow MD [Physician] - 1 week (4 mm left ureteral stone) Stand Alone Forms: Work/School Release
[2020-04-22] MEDS: 0.9 % Sodium Chloride 1,000 ML 999 ML IV (18:17)
[2020-04-22] MEDS: Ketorolac Tromethamine 30 MG/ML VIAL IVPUSH (18:17)
[2020-04-22 18:24] LABS: MANUAL DIFF FLAG NO
[2020-04-22 18:30] LABS: Basophils Absolute Auto 0.1 X10*3/uL (0.0-0.2); Basophils Percent Auto 0.4 % (0-2); Eosinophils Absolute Auto 0.1 X10*3/uL (0.0-0.4); Eosinophils Percent Auto 0.7 % (0-4); Hematocrit 40.9 % (37-47); Hemoglobin 13.6 g/dl (12.0-16.0); Imm Gran Abs Auto 0.04 X10*3/uL (0.00-0.03); Imm Gran Pct Auto 0.3 % (0.0-0.4); Lymphocytes Absolute Auto 2.1 X10*3/uL (1.2-4.9); Lymphocytes Percent Auto 17.8 % (20-40); Mean Corpuscular HGB Conc 33.3 g/dl (31.0-35.0); Mean Corpuscular Hemoglobin 30.3 pg (27.0-33.0); Mean Corpuscular Volume 91.1 fL (80-98); Mean Platelet Volume 9.8 fL (9.4-12.3); Monocytes Absolute Auto 0.9 X10*3/uL (0.1-1.2); Monocytes Percent Auto 7.6 % (2-11); Neutrophils Absolute Auto 8.4 X10*3/uL (2.0-8.3); Neutrophils Percent Auto 73.2 % (45-73); Platelet Count 345 X10*3/uL (160-400); Red Blood Count 4.49 X10*6/uL (4.20-5.50); Red Cell Distribution Width 11.9 % (11.0-16.0); White Blood Count 11.5 X10*3/uL (4.8-10.8)
[2020-04-22 18:33] LABS: Glucose Urine UA NEG (NEG); Leukocyte Esterase Urine NEG (NEG); Nitrite Urine NEG (NEG); Urine Blood 3+ (NEG); Urine Ketones NEG (NEG); Urine Protein NEG (NEG-TRACE)
[2020-04-22 18:34] LABS: Appearance Urine HAZY; Color Urine YELLOW
[2020-04-22 18:53] LABS: RBC Urine 30-49 /HPF (0); Squamous Epithelial Cell Urine 1+ /LPF; WBC Urine 0-2 /HPF (0-4)
[2020-04-22 18:56] LABS: Alanine Aminotransferase 37 U/L (0-31); Albumin Level 4.3 g/dL (3.5-5.0); Alkaline Phosphatase 78 U/L (39-117); Anion Gap 12 (12-20); Aspartate Amino Transferase 35 U/L (5-31); Bilirubin Total 0.5 mg/dL (0.0-1.0); Blood Urea Nitrogen 12 mg/dL (9-16); Calcium 9.3 mg/dL (8.4-10.2); Carbon Dioxide 30 mmol/L (22-29); Chloride 102 mmol/L (96-108); Creatinine Clr Calc Pharmacy 140.6; Estimated Glomerular Filt Rate > 60; Glucose Random 88 mg/dL (60-115); Sodium 140 mmol/L (135-145); Total Protein 6.7 g/dL (6.5-8.0)
== END 2020-04-22 19:51 | disposition home or self-care (01) ==
PROVIDERS: Emergency Provider Emergency Medicine Emergency Medical Services; PCP Internal Medicine
DX: N13.2 Hydronephrosis with renal and ureteral calculous obstruction (principal); Z87.442 Personal history of urinary calculi; R93.5 Abnormal findings on diagnostic imaging of other abdominal regions, including retroperitoneum; K76.0 Fatty (change of) liver, not elsewhere classified; N83.202 Unspecified ovarian cyst, left side
CPT/HCPCS: 36415; 74176; 80053; 81001; 85025; 87040; 96361; 96374; 99284; J1885

== ENCOUNTER → 2020-05-23 13:45 | Outpatient (BNVA) | payer OTHER, SELFPAY | PROVIDERS: PCP Internal Medicine; Visit Provider Urology ==

== ENCOUNTER 2020-06-09 09:57 | Day surgery (SDC) | payer OTHER, SELFPAY ==
[2020-06-04 10:20] VITALS: BMI 41.5
--- NOTE | 2020-06-06 10:55 | HO.ANESPROP2 ---
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 (Acute) Family history of von Willebrand disease (Acute) Asthma (Acute) Hypothyroid (Acute) Past Medical History Medical History (Updated 06/06/20 @ 11:01 by Kristy Hawley) Asthma Closed right ankle fracture COVID-19 vaccine administered Family history of von Willebrand disease History of renal calculi History of thyroid cancer HTN (hypertension) Hypercholesterolemia Hypothyroid Impaired glucose tolerance 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 Lumbar disc herniation Migraine Obesity Patellar fracture Pericardial effusion Vertigo Vitamin D deficiency Family History Family History (Updated 06/03/20 @ 14:28 by Courtney Garcia RN) Daughter Von Willebrand disease Other Asthma Diabetes Emphysema of lung Family history of bladder cancer Family history of breast cancer Family history of lung cancer Family history of prostate cancer Surgical History Surgical History (Updated 06/09/20 @ 11:20 by Tamara Wooten RN) History of ankle surgery History of back surgery History of bladder surgery History of section History of cholecystectomy History of pubovaginal sling History of thyroid surgery Hx of cystoscopy Hx of tubal ligation Tubal ligation status Social History Social History (Updated 06/03/20 @ 14:28 by Courtney Garcia RN) Alcohol intake: never Smoking Status: Never smoker Advance Directives Information Provided: No Meds Allergies Allergy/AdvReac Type Severity Reaction Status Date / Time oxycodone [OXYCODONE] Allergy Intermediate RASH,SHAKES, Verified 06/03/20 14:28 shakiness, body shaking, tremors Home Medications Medication Instructions Recorded Confirmed Last Taken Type albuterol sulfate 90 mcg/actuation 2 puff INHALATION Q4-6H PRN 01/03/20 06/04/20 Unknown History aerosol inhaler sqsnwmirti-vgvkzksmkawqj-bkjuuszd 1 cap PO Q4-6H PRN 01/03/20 06/04/20 Unknown History 50 mg-300 mg-40 mg capsule cholecalciferol (vitamin D3) 25 25 mcg PO DAILY 01/03/20 06/04/20 Unknown History mcg (1,000 unit) capsule meclizine 25 mg tablet 25 mg PO TID 01/03/20 06/04/20 Unknown History levothyroxine 100 mcg capsule 100 mcg PO QAM 05/23/20 Unknown History levothyroxine 25 mcg capsule 25 mcg PO QAM 05/23/20 Unknown History Exam Exam Date and Time: June 06, 2020 1055 Height,Weight and Vital Signs: Height 5 ft 2 in Weight 102.965 kg Pertinent Lab Results Pertinent Lab Results: Laboratory Tests 04/22/20 04/22/20 18:17 18:17 WBC 11.5 H Hgb 13.6 Hct 40.9 Plt Count 345 Sodium 140 Potassium 4.0 Chloride 102 Carbon Dioxide 30 H BUN 12 Creatinine 0.58 Laboratory Tests 12/19/19 04/22/20 10:10 18:17 Total Protein 6.7 Albumin 4.3 Free T4 1.97 H TSH 3rd Generation 0.07 L Assessment and Plan Assessment Anesthesia Assessment: Chart Reviewed Documented by User: Marlen Beyer 06/09/20 12:36 [facility] Past Medical History Medical History (Updated 06/06/20 @ 11:01 by Kristy Hawley) Asthma Closed right ankle fracture COVID-19 vaccine administered Family history of von Willebrand disease History of renal calculi History of thyroid cancer HTN (hypertension) Hypercholesterolemia Hypothyroid Impaired glucose tolerance 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 Lumbar disc herniation Migraine Obesity Patellar fracture Pericardial effusion Vertigo Vitamin D deficiency Family History Family History (Updated 06/03/20 @ 14:28 by Courtney Garcia RN) Daughter Von Willebrand disease Other Asthma Diabetes Emphysema of lung Family history of bladder cancer Family history of breast cancer Family history of lung cancer Family history of prostate cancer Surgical History Surgical History (Updated 06/09/20 @ 11:20 by Tamara Wooten RN) History of ankle surgery History of back surgery History of bladder surgery History of section History of cholecystectomy History of pubovaginal sling History of thyroid surgery Hx of cystoscopy Hx of tubal ligation Tubal ligation status Social History Social History (Updated 06/03/20 @ 14:28 by Courtney Garcia RN) Alcohol intake: never Smoking Status: Never smoker Advance Directives Information Provided: No Meds Allergies Allergy/AdvReac Type Severity Reaction Status Date / Time oxycodone [OXYCODONE] Allergy Intermediate RASH,SHAKES, Verified 06/03/20 14:28 shakiness, body shaking, tremors Home Medications Medication Instructions Recorded Confirmed Last Taken Type albuterol sulfate 90 mcg/actuation 2 puff INHALATION Q4-6H PRN 01/03/20 06/04/20 Unknown History aerosol inhaler shmzxyoacu-uewgkqjzjdoul-ycpyfylh 1 cap PO Q4-6H PRN 01/03/20 06/04/20 Unknown History 50 mg-300 mg-40 mg capsule cholecalciferol (vitamin D3) 25 25 mcg PO DAILY 01/03/20 06/04/20 Unknown History mcg (1,000 unit) capsule meclizine 25 mg tablet 25 mg PO TID 01/03/20 06/04/20 Unknown History levothyroxine 100 mcg capsule 100 mcg PO QAM 05/23/20 Unknown History levothyroxine 25 mcg capsule 25 mcg PO QAM 05/23/20 Unknown History Exam Airway Mallampati Class: III TM Dist: >3cm Neck ROM: Full Denture: Upper Heart: RRR Lungs: CTA BL Assessment and Plan Assessment Anesthesia Assessment: Anesthesia Plan Discussed and Chart Reviewed Final Anesthetic Review NPO: Yes (Sip water with meds) ASA Class: III Final Preanesthetic Review: No Changes in Pt Med Stat, Meds/Allgs Chart Reviewed and Consent Obtained/Reviewed Patient Risk: Intermediate Procedure Risk: Intermediate Anesthetic Plan Anesthetic Plan: GA Disposition: Standard PACU
[2020-06-09 11:35] VITALS: BP 138/83; PULSE 67; RESP 16; TEMP 36.2; O2SAT 100
[2020-06-09] MEDS: Lactated Ringers 1,000 ML 100 ML IVCONT (11:46)
[2020-06-09] MEDS: levoFLOXacin 500 MG TABLET PO (12:50)
--- NOTE | 2020-06-09 13:26 | MHC.SHP ---
Pre-Procedural Eval Section A The patient is an INPATIENT: No Changes since office visit: No Cold of Flu in the past 2 weeks, No New Medical Problems, No Changes in Medication and No Patient answered all questions The History & Physical has been completed within 30 days and I have reviewed it.: Yes Section B Chief Complaint: calculus of kidney Allergies: Allergies Allergy/AdvReac Type Severity Reaction Status Date / Time oxycodone [OXYCODONE] Allergy Intermediate RASH,SHAKES, Verified 06/03/20 14:28 shakiness, body shaking, tremors Plan Diagnosis/Plan: Unchanged (Left retorgade, ureteroscopy, laser, stent) I have reviewed the history and physical and performed a pertinent physical examination on my patient. No changes have occurred unless specified.
--- NOTE | 2020-06-09 13:50 | P.BOP_ITS ---
Brief Operative Note Date of Service: 06/09/20 Pre-op diagnosis: Distal left ureteric stone Post-op diagnosis: other (No stone seen) Procedure: Cystoscopy, left retrograde, dilatation left ureteric orifice, left ureteroscopy, left stent placement Implants: Left 6 [place] by 22 cm stent double-J Surgeon: Marcio Winslow MD Anesthesia: GLMA Estimated blood loss (mL): 0 Pathology: none sent Condition: stable Disposition: same day
--- NOTE | 2020-06-09 13:51 | W.PM.OPN ---
Operative Note Operative Note Date of Service: 06/09/20 Narrative: PreOperative Diagnosis: Left distal ureteric stone Post Operative Diagnosis: No stone seen Procedure: - cystoscopy, left retrograde - left dilatation of ureteric orifice under fluoroscopy - left rigid ureteroscopy - stent placement Surgeon: Dr Marcio Winslow Anesthesia: General Indications for procedure: Is a 45-year-old female. Recurrent stone former. Had presented to the emergency room with left distal stones on imaging. States she has not passed the stone is still feeling pain on the left side. Given the location recommended rigid ureteroscopy. Procedure: After informed consent was verified patient was brought to the operating placed in supine position. Anesthesia was administered per protocol. Patient was placed in modified dorsal lithotomy position and prepped and draped in a sterile fashion. Safety pause time-out and side of surgery confirmed. Antibiotics confirmed. Twenty-three Bangladeshi rigid cystoscope passed per urethra. No abnormalities no the bladder. Left ureteric orifice cannulated. Retrograde examination performed. No clear filling defects seen within the distal to proximal portion of the ureter all the kidney. Sensor guidewire placed. Katie dilator under fluoroscopy used to dilate left ureteric orifice. Left rigid ureteroscopic performed. No clear evidence of stone in the distal 2/3 of the ureter. No clear evidence of stone on retrograde. Rigid ureteroscope removed. Six Bangladeshi by 22 cm stent placed over Sensor guidewire with good placement in both kidney and bladder confirmed with fluoroscopy. Patient was extubated in the operating room transferred in stable condition to recovery area. Pathology: None Drains: 6 Bangladeshi by 2 2 cm double-J stent
[2020-06-09 13:55] VITALS: BP 133/90; PULSE 66; RESP 17; TEMP 36.6; O2SAT 90
[2020-06-09 14:00] VITALS: BP 137/88; PULSE 62; RESP 14; O2SAT 92
[2020-06-09 14:05] VITALS: BP 128/93; PULSE 63; RESP 14; O2SAT 94
[2020-06-09 14:10] VITALS: BP 124/85; PULSE 63; RESP 15; O2SAT 94
[2020-06-09 14:25] VITALS: BP 117/78; PULSE 70; RESP 18; TEMP 36.6; O2SAT 96
[2020-06-09] MEDS: Phenazopyridine HCL 100 MG TABLET PO (14:26)
[2020-06-09] MEDS: NaPROXEN 500 MG TABLET PO (14:27)
[2020-06-09] MEDS: Acetaminophen 325 MG TABLET 650 MG PO (14:27)
== END 2020-06-09 15:23 | disposition home or self-care (01) ==
PROVIDERS: PCP Internal Medicine; Visit Provider Urology
PROC: (CPT 52351; principal; 2020-06-09 12:10)
DX: N20.1 Calculus of ureter (principal); Z87.442 Personal history of urinary calculi; J45.909 Unspecified asthma, uncomplicated; I10 Essential (primary) hypertension; Z90.49 Acquired absence of other specified parts of digestive tract; Z85.850 Personal history of malignant neoplasm of thyroid; Z88.8 Allergy status to other drugs, medicaments and biological substances; Z79.899 Other long term (current) drug therapy
CPT/HCPCS: 52351; 52332; C1758; C1769; C2617; J1100; J1885; J2250; J2405; J3010; Q9967

== ENCOUNTER → 2020-06-25 14:55 | Outpatient (BNVA) | payer OTHER, SELFPAY | PROVIDERS: PCP Internal Medicine; Visit Provider Urology | DX: N20.0 Calculus of kidney (principal) | CPT/HCPCS: 52310; 81002; 99212 ==

== ENCOUNTER → 2020-06-30 08:50 | Outpatient (BNVA) | payer OTHER, SELFPAY | PROVIDERS: PCP Internal Medicine; Visit Provider Internal Medicine | DX: Z85.850 Personal history of malignant neoplasm of thyroid (principal) | CPT/HCPCS: 96372 ==

== ENCOUNTER → 2020-07-01 08:57 | Outpatient (BNVA) | payer OTHER, SELFPAY | PROVIDERS: PCP Internal Medicine; Visit Provider Internal Medicine Endocrinology, Diabetes & Metabolism | DX: Z85.850 Personal history of malignant neoplasm of thyroid (principal) | CPT/HCPCS: 96372 ==

== ENCOUNTER 2020-07-03 08:54 | Outpatient (REF) | payer OTHER, SELFPAY ==
[2020-07-03 10:13] LABS: MANUAL DIFF FLAG NO
[2020-07-03 10:24] LABS: Basophils Absolute Auto 0.1 X10*3/uL (0.0-0.2); Eosinophils Absolute Auto 0.1 X10*3/uL (0.0-0.4); Eosinophils Percent Auto 1.5 % (0-4); Hemoglobin 13.6 g/dl (12.0-16.0); Imm Gran Abs Auto 0.06 X10*3/uL (0.00-0.03); Imm Gran Pct Auto 0.8 % (0.0-0.4); Lymphocytes Percent Auto 27.7 % (20-40); Mean Corpuscular HGB Conc 32.4 g/dl (31.0-35.0); Mean Corpuscular Hemoglobin 30.1 pg (27.0-33.0); Mean Corpuscular Volume 92.9 fL (80-98); Mean Platelet Volume 10.1 fL (9.4-12.3); Monocytes Absolute Auto 0.6 X10*3/uL (0.1-1.2); Monocytes Percent Auto 8.7 % (2-11); Neutrophils Absolute Auto 4.3 X10*3/uL (2.0-8.3); Neutrophils Percent Auto 60.3 % (45-73); Platelet Count 376 X10*3/uL (160-400); Red Blood Count 4.52 X10*6/uL (4.20-5.50); Red Cell Distribution Width 12.6 % (11.0-16.0); White Blood Count 7.2 X10*3/uL (4.8-10.8)
[2020-07-03 10:59] LABS: Estimated Average Glucose 114 mg/dL; Hemoglobin A1c % 5.6 %
[2020-07-03 11:05] LABS: Alanine Aminotransferase 51 U/L (0-31); Albumin Level 4.6 g/dL (3.5-5.0); Alkaline Phosphatase 78 U/L (39-117); Anion Gap 14 (12-20); Aspartate Amino Transferase 43 U/L (5-31); Bilirubin Total 0.7 mg/dL (0.0-1.0); Blood Urea Nitrogen 16 mg/dL (9-16); Carbon Dioxide 26 mmol/L (22-29); Chloride 104 mmol/L (96-108); Cholesterol 181 mg/dL; Estimated Glomerular Filt Rate > 60; Glucose Fasting 134 mg/dL (60-99); HDL Cholesterol 32 mg/dL; LDL Cholesterol Calculated 127 mg/dl; Potassium 4.1 mmol/L (3.3-5.1); Sodium 140 mmol/L (135-145); Total Protein 7.2 g/dL (6.5-8.0); Triglycerides 113 mg/dL
[2020-07-03 11:17] LABS: Thyroid Stimulating Hormone 17.71 uIU/mL (0.32-4.0)
[2020-07-03 11:20] LABS: Vitamin D 25-OH Total 32.2 ng/mL (>30)
[2020-07-04 10:47] LABS: Glucose Urine UA NEG (NEG); Leukocyte Esterase Urine NEG (NEG); Nitrite Urine NEG (NEG); PH 5.5 (5.0-8.0); Specific Gravity - Urine >= 1.030 (1.005-1.025); Urine Blood 2+ (NEG); Urine Ketones NEG (NEG); Urine Protein TRACE MG/DL (NEG-TRACE)
[2020-07-04 10:50] LABS: Appearance Urine CLOUDY; Color Urine YELLOW
[2020-07-04 11:06] LABS: Amorphous Sediment Urine 3+ /LPF; Mucus Urine 3+ /LPF; Squamous Epithelial Cell Urine 1+ /LPF; WBC Urine 0 /HPF (0-4)
[2020-07-04 17:57] LABS: Thyroglobulin 10.2 ng/mL; Thyroglobulin Antibodies <1 IU/mL (< or = 1)
== END 2020-07-03 08:55 | disposition home or self-care (01) ==
LOC: HO.10HDL 08:54
PROVIDERS: Absent Provider Internal Medicine; Visit Provider Internal Medicine
DX: Z00.00 Encounter for general adult medical examination without abnormal findings (principal); E78.00 Pure hypercholesterolemia, unspecified; N20.0 Calculus of kidney; I10 Essential (primary) hypertension; G43.909 Migraine, unspecified, not intractable, without status migrainosus; E55.9 Vitamin D deficiency, unspecified; R73.01 Impaired fasting glucose; Z85.850 Personal history of malignant neoplasm of thyroid
CPT/HCPCS: 36415; 80053; 80061; 81001; 82306; 83036; 84432; 84443; 85025; 86800

== ENCOUNTER 2020-07-04 07:52 | Outpatient (REF) | payer OTHER, SELFPAY ==
[2020-07-04 11:14] LABS: Thyroid Stimulating Hormone 3.23 uIU/mL (0.32-4.0)
[2020-07-05 05:51] LABS: Thyroglobulin 6.7 ng/mL; Thyroglobulin Antibodies <1 IU/mL (< or = 1)
== END 2020-07-04 07:53 | disposition home or self-care (01) ==
LOC: HO.10HDL 07:52
PROVIDERS: Visit Provider Internal Medicine
DX: Z85.850 Personal history of malignant neoplasm of thyroid (principal); Z11.1 Encounter for screening for respiratory tuberculosis
CPT/HCPCS: 36415; 84432; 84443; 86800

== ENCOUNTER → 2020-07-09 09:26 | Outpatient (BNVA) | payer OTHER, SELFPAY | PROVIDERS: PCP Internal Medicine; Visit Provider Internal Medicine ==

== ENCOUNTER 2020-07-10 12:09 | Outpatient (REF) | payer OTHER, SELFPAY ==
[2020-07-10 14:39] LABS: Alanine Aminotransferase 74 U/L (0-31); Albumin Level 4.3 g/dL (3.5-5.0); Alkaline Phosphatase 68 U/L (39-117); Anion Gap 14 (12-20); Aspartate Amino Transferase 69 U/L (5-31); Bilirubin Total 0.8 mg/dL (0.0-1.0); Blood Urea Nitrogen 19 mg/dL (9-16); Calcium 9.1 mg/dL (8.4-10.2); Carbon Dioxide 27 mmol/L (22-29); Chloride 101 mmol/L (96-108); Estimated Glomerular Filt Rate > 60; Glucose Random 107 mg/dL (60-115); Potassium 4.4 mmol/L (3.3-5.1); Sodium 138 mmol/L (135-145); Total Protein 6.8 g/dL (6.5-8.0)
[2020-07-10 15:03] LABS: Free T4 (Free Thyroxine) 1.97 ng/dL (0.71-1.85); Thyroid Stimulating Hormone 0.14 uIU/mL (0.32-4.0); Vitamin D 25-OH Total 33.8 ng/mL (>30)
[2020-07-12 01:12] LABS: Thyroglobulin Antibodies <1 IU/mL (< or = 1)
== END 2020-07-10 12:10 | disposition home or self-care (01) ==
LOC: HO.10HDL 12:09
PROVIDERS: Visit Provider Internal Medicine
DX: E55.9 Vitamin D deficiency, unspecified (principal); Z85.850 Personal history of malignant neoplasm of thyroid
CPT/HCPCS: 36415; 80053; 82306; 84432; 84439; 84443; 86800

== ENCOUNTER 2020-07-25 10:06 | Outpatient (REF) | payer OTHER, SELFPAY ==
[2020-07-25 12:37] LABS: Free T4 (Free Thyroxine) 1.59 ng/dL (0.71-1.85); Thyroid Stimulating Hormone 0.05 uIU/mL (0.32-4.0)
[2020-07-26 06:27] LABS: Rubella IgG Antibody 7.84 Index
[2020-07-28 03:54] LABS: HBc Num1 0.08 S/CO (0.00-0.79); Hepatitis B Core Antibody Nonreactive (Nonreactive); ~Hepatitis B Surface Antibody NONREACTIVE (Nonreactive)
[2020-07-28 04:01] LABS: Hepatitis B Surface Antigen Negative (Negative)
== END 2020-07-25 10:07 | disposition home or self-care (01) ==
LOC: HO.10HDL 10:06
PROVIDERS: Absent Provider Internal Medicine; Visit Provider Internal Medicine
DX: Z01.84 Encounter for antibody response examination (principal); Z85.850 Personal history of malignant neoplasm of thyroid
CPT/HCPCS: 36415; 84439; 84443; 86704; 86706; 86735; 86762; 86765; 86787; 87340

== ENCOUNTER 2020-08-26 09:00 | Outpatient (REF) | payer OTHER, SELFPAY | END 2020-08-26 09:01 | disposition home or self-care (01) | LOC: HO.PET 09:00 | PROVIDERS: PCP Internal Medicine; Visit Provider Internal Medicine | DX: Z13.89 Encounter for screening for other disorder (principal) ==

== ENCOUNTER → 2020-09-01 07:58 | Outpatient (BNVA) | payer OTHER, SELFPAY | PROVIDERS: PCP Internal Medicine; Visit Provider Internal Medicine ==

== ENCOUNTER 2020-09-05 16:43 | Outpatient (REF) | payer OTHER, SELFPAY | END 2020-09-05 16:44 | disposition home or self-care (01) | LOC: HO.LNP 16:43 | PROVIDERS: Visit Provider Hospitalist | DX: J01.90 Acute sinusitis, unspecified (principal); Z20.822 Contact with and (suspected) exposure to COVID-19 | CPT/HCPCS: U0003; U0005 ==

== ENCOUNTER 2020-09-10 14:20 | Inpatient (IN) | payer OTHER, SELFPAY ==
[2020-09-10] VITALS (14 sets, daily range): BP systolic 125–155; BP diastolic 70–94; PULSE 94–144; RESP 16–20; TEMP 36.2–36.8; O2SAT 91–98; BMI 33.9
--- NOTE | ~2020-09-10 | XR_ITS ---
EXAMINATION: XR CHEST CLINICAL INFORMATION: Dyspnea. COMPARISON: Chest 07/14/2019 TECHNIQUE: Frontal view of the chest was obtained. FINDINGS: No significant abnormality is noted involving the heart, lungs, mediastinum, bony thorax or soft tissues. XR/XR chest 1V IMPRESSION: Unremarkable chest examination.
--- NOTE | 2020-09-10 14:33 | ECG_ITS ---
Test Reason : SOB Blood Pressure : / mmHG Vent. Rate : 116 BPM Atrial Rate : 116 BPM P-R Int : 140 ms QRS Dur : 086 ms QT Int : 344 ms P-R-T Axes : 043 012 028 degrees QTc Int : 478 ms Sinus tachycardia Otherwise normal ECG When compared with ECG of 14-JUL-2019 10:00, No significant change was found Referred By: Silvana Hussein Electronically Signed By:HEIDY TUCKER
--- NOTE | 2020-09-10 14:35 | ED.SOB ---
HPI - SOB/Dyspnea General Chief Complaint: Dyspnea Stated Complaint: WEAKNESS,NAUSEA,VOMITING Time Seen by Provider: 09/10/20 14:26 Source: patient and EMS Mode of arrival: EMS Limitations: no limitations History of Present Illness MD elicited complaint: shortness of breath and cough Pertinent past history: asthma Onset (ago): day(s) (09/05) Context: recent illness (started on prednisone and augmentin 09/05 by urgent care center for sinusitis) Timing: progressively worsening Severity: moderate Exacerbating factors: exertion and coughing Relieving factors: oxygen Known history of: asthma Associated symptoms: cough and wheezing Treatment prior to arrival: oxygen (92% on RA, took augmentin and prednisone today) Related Data Home Medications Medication Instructions Recorded Confirmed cholecalciferol (vitamin D3) 25 25 mcg PO DAILY 01/03/20 09/05/20 mcg (1,000 unit) capsule Previous Rx's Medication Instructions Recorded naproxen 500 mg tablet 500 mg PO BID PRN #60 tab 01/30/20 sumatriptan succinate 50 mg tablet 50 mg PO DAILY PRN #10 tab 03/24/20 lisinopril 30 mg tablet 30 mg PO DAILY #30 tab 04/03/20 ketorolac 10 mg PO QID 5 Days #20 tab 04/22/20 ondansetron 4 mg PO Q6-8H PRN #14 tab 04/22/20 thyrotropin char 0.9 mg IM DAILY #2 ml 06/05/20 phenazopyridine [Pyridium] 100 mg PO TID PRN 4 Days #12 tab 06/09/20 tramadol 50 mg PO Q6H PRN #14 tab 06/09/20 levothyroxine 100 mcg capsule 100 mcg PO QAM 30 Days #30 cap 06/23/20 Tirosint 150 mcg capsule 150 mcg PO QAM #30 cap NS 06/25/20 Tirosint 25 mcg capsule 25 mcg PO QAM 30 Days #30 cap NS 06/25/20 allopurinol 100 mg tablet 100 mg PO DAILY 90 Days #90 tab 06/25/20 pyridoxine (vitamin B6) 100 mg 100 mg PO DAILY 90 Days #90 tab 06/25/20 tablet albuterol sulfate 90 mcg/actuation 2 puff INHALATION Q6H PRN 30 Days 07/02/20 aerosol inhaler #8.5 g odxzntgqru-blkxjudvatayf-dveolpel 1 cap PO Q4-6H PRN 30 Days #100 cap 07/02/20 50 mg-300 mg-40 mg capsule meclizine 25 mg tablet 25 mg PO TID PRN 30 Days #90 tab 07/02/20 tamsulosin 0.4 mg capsule 0.4 mg PO BEDTIME 30 Days #30 cap 07/02/20 diazepam 5 mg tablet See Rx Instructions PO ONCE PRN #1 09/01/20 tab amoxicillin 875 mg-potassium 1 tab PO BID #20 tab 09/05/20 clavulanate 125 mg tablet prednisone 20 mg tablet 20 mg PO .COMPLEX #18 tab 09/05/20 cholecalciferol (vitamin D3) 25 25 mcg PO DAILY 90 Days #90 tab 09/09/20 mcg (1,000 unit) tablet Allergies Allergy/AdvReac Type Severity Reaction Status Date / Time oxycodone [OXYCODONE] Allergy Intermediate RASH,SHAKES, Verified 09/05/20 10:46 shakiness, body shaking, tremors Review of Systems Review of Systems: Constitutional : No Fever, No Chills ENT/Mouth : No sore throat, No Rhinorrhea, No Swallowing Difficulty Eyes: No Eye Pain, No Swelling, No Redness Cardiovascular : No Chest Pain, positive SOB, No Orthopnea, no Edema Respiratory : pos Cough, No Sputum, pos Wheezing, positive dyspnea Gastrointestinal : pos Nausea, pos Vomiting, No Diarrhea, No abdominal Pain, No Hematochezia, No Melena Genitourinary : No Dysuria, No Urinary Frequency, No Hematuria Musculoskeletal : No joint pain, No Myalgias Skin : No Skin Lesions, No rash Neuro : No Weakness, No Numbness, No Dizziness, No Headache Psych : No Anxiety/Panic, No Depression Heme/Lymph: No Bruising, No Lymphadenopathy Endocrine : No Polyuria, No Polydipsia All other systems reviewed and are negative [facility] Past Medical History Attestation statement: The following information was validated with the patient. 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 Lumbar disc herniation Migraine Morbid obesity with BMI of 40.0-44.9, adult Obesity Patellar fracture Pericardial effusion Postsurgical hypothyroidism Pure hypercholesterolemia Vertigo Vitamin D deficiency Surgical History History of ankle surgery History of back surgery History of bladder surgery History of section History of cholecystectomy History of pubovaginal sling History of thyroid surgery Hx of cystoscopy Hx of tubal ligation Tubal ligation status Family History Family History Daughter Von Willebrand disease Other Asthma Diabetes Emphysema of lung Family history of bladder cancer Family history of breast cancer Family history of lung cancer Family history of prostate cancer Social History Social History (Updated 09/10/20 @ 14:35 by Silvana Hussein DO) Alcohol intake: never Patient Tobacco Use Status: Never used Tobacco Advance Directives: No Advance Directives Information Provided: No Patient : No Physical Exam Vital Signs: Vital Signs: Last Vital Signs Temp 98.3 F 09/10/20 14:27 Pulse 108 H 09/10/20 15:09 Resp 20 09/10/20 15:09 BP 152/88 H 09/10/20 14:27 Pulse Ox 93 09/10/20 15:09 Oxygen Flow Rate 1 09/10/20 14:27 Body Mass Index 33.9 Appearance: Alert. Oriented X3. No acute distress. Anxious Eyes: Pupils equal, round and reactive to light. ENT: Pharynx normal. Neck: Normal inspection. Neck supple. CVS: tachycardic heart rate and rhythm. Pulses normal. Respiratory: No respiratory distress. Breath sounds diffuse end exp wheezes Abdomen: Soft and non-tender. Skin: Skin warm and dry. Normal skin color. Normal skin turgor. Extremities: No lower extremity edema. No calf ttp Neuro: Oriented X 3. No motor deficit. No sensory deficit. Course Course Course Narrative: still wheezing, negative CXR, COVID pending, repeat 5mg neb ordered 91% on RA at this time signed out pending repeat neb and reassessments to Dr. Decker MDM - SOB/Dyspnea MDM Narrative Medical decision making narrative: 45 yo female with hx of asthma on rescue, fluticasone INH, HTN, renal colic, HLD was treated for sinusitis on 09/05 with augmentin and prednisone, notes she has had increased dyspnea and wheezing worsening today, does not have neb machine at [facility] [employer], at this time will need 5mg neb, IV steroids, IV magnesium, CXR, COVID swab, basic labs, EKG seems asthmatic in nature, dispo per results and findings. Lab Data Result diagrams: 09/10/20 14:40 09/10/20 14:40 Labs: Lab Results 09/10/20 09/10/20 09/10/20 Range/Units 14:40 14:40 14:40 WBC 11.3 H (4.8-10.8) X10*3/uL RBC 4.37 (4.20-5.50) X10*6/uL Hgb 13.7 (12.0-16.0) g/dl Hct 38.7 (37-47) % MCV 88.6 (80-98) fL MCH 31.4 (27.0-33.0) pg MCHC 35.4 H (31.0-35.0) g/dl RDW 11.7 (11.0-16.0) % Plt Count 343 (160-400) X10*3/uL MPV 9.8 (9.4-12.3) fL Immature Gran % (Auto) 0.6 H (0.0-0.4) % Neut % (Auto) 86.1 H (45-73) % Lymph % (Auto) 9.3 L (20-40) % [place] % (Auto) 3.3 (2-11) % Eos % (Auto) 0.3 (0-4) % Baso % (Auto) 0.4 (0-2) % Lymph # (Auto) 1.1 L (1.2-4.9) X10*3/uL [place] # (Auto) 0.4 (0.1-1.2) X10*3/uL Eos # (Auto) 0.0 (0.0-0.4) X10*3/uL Baso # (Auto) 0.1 (0.0-0.2) X10*3/uL Abs Immat Gran (auto) 0.07 H (0.00-0.03) X10*3/uL Absolute Neuts (auto) 9.8 H (2.0-8.3) X10*3/uL Absolute Nucleated RBC 0.000 (0.0-0.012) X10*3/uL Nucleated RBC % (auto) 0.0 (0.0-0.2) /100WBC Sodium 138 (135-145) mmol/L Potassium 4.0 (3.3-5.1) mmol/L Chloride 106 (96-108) mmol/L Carbon Dioxide 24 (22-29) mmol/L Anion Gap 12 (12-20) BUN 11 (9-16) mg/dL Creatinine 0.55 (0.5-1.4) mg/dL Estim Creat Clear Calc 153.3 Estimated GFR > 60 Random Glucose 146 H D (60-115) mg/dL Calcium 9.0 (8.4-10.2) mg/dL Magnesium 1.5 L (1.6-2.6) mg/dL Total Bilirubin 0.6 (0.0-1.0) mg/dL Direct Bilirubin 0.2 (0.0-0.5) mg/dL AST 25 D (5-31) U/L ALT 32 H (0-31) U/L Alkaline Phosphatase 84 D (39-117) U/L Troponin I High Sens (<3.5-17.0) ng/L Total Protein 6.5 (6.5-8.0) g/dL Albumin 4.1 (3.5-5.0) g/dL / Range/Units 14:40 WBC (4.8-10.8) X10*3/uL RBC (4.20-5.50) X10*6/uL Hgb (12.0-16.0) g/dl Hct (37-47) % MCV (80-98) fL MCH (27.0-33.0) pg MCHC (31.0-35.0) g/dl RDW (11.0-16.0) % Plt Count (160-400) X10*3/uL MPV (9.4-12.3) fL Immature Gran % (Auto) (0.0-0.4) % Neut % (Auto) (45-73) % Lymph % (Auto) (20-40) % [place] % (Auto) (2-11) % Eos % (Auto) (0-4) % Baso % (Auto) (0-2) % Lymph # (Auto) (1.2-4.9) X10*3/uL [place] # (Auto) (0.1-1.2) X10*3/uL Eos # (Auto) (0.0-0.4) X10*3/uL Baso # (Auto) (0.0-0.2) X10*3/uL Abs Immat Gran (auto) (0.00-0.03) X10*3/uL Absolute Neuts (auto) (2.0-8.3) X10*3/uL Absolute Nucleated RBC (0.0-0.012) X10*3/uL Nucleated RBC % (auto) (0.0-0.2) /100WBC Sodium (135-145) mmol/L Potassium (3.3-5.1) mmol/L Chloride (96-108) mmol/L Carbon Dioxide (22-29) mmol/L Anion Gap (12-20) BUN (9-16) mg/dL Creatinine (0.5-1.4) mg/dL Estim Creat Clear Calc Estimated GFR Random Glucose (60-115) mg/dL Calcium (8.4-10.2) mg/dL Magnesium (1.6-2.6) mg/dL Total Bilirubin (0.0-1.0) mg/dL Direct Bilirubin (0.0-0.5) mg/dL AST (5-31) U/L ALT (0-31) U/L Alkaline Phosphatase (39-117) U/L Troponin I High Sens < 3.5 (<3.5-17.0) ng/L Total Protein (6.5-8.0) g/dL Albumin (3.5-5.0) g/dL ECG Data Attestation: I personally reviewed and interpreted this ECG as follows: ECG interpretation date: 09/10/20 ECG interpretation time: 15:19 Interpretation: Rate: 116 Rhythm: sinus tachycardia [place]: normal Normal P waves. Normal [place]. Normal QRS complex. ST T wave : normal no MACI qTC: normal prior studies: no acute ischemia The study has been interpreted contemporaneously by me. . Critical Care Time Critical Care Time Critical Care Time: Yes Total Critical Care Time: 35 Attestation: repeat albuterol nebs (hour long), O2 supplementation I attest to this time spent taking care of the patient Discharge Plan Discharge Clinical Impression: Hypomagnesemia Asthma Qualifiers: Asthma severity: mild Asthma persistence: persistent Asthma complication type: with acute exacerbation Qualified Code(s): J45.31 - Mild persistent asthma with (acute) exacerbation Prescriptions: No Action sumatriptan succinate 50 mg tablet 50 mg PO DAILY PRN (Reason: for headache) Qty: 10 RF: 10 lisinopril 30 mg tablet 30 mg PO DAILY Qty: 30 RF: 5 Thyrogen 1.1 mg (0.9 mg/ mL final conc.) recon soln 0.9 mg IM DAILY Qty: 2 RF: 0 levothyroxine 100 mcg capsule 100 mcg PO QAM 30 Days Qty: 30 RF: 3 levothyroxine [Tirosint] 150 mcg capsule 150 mcg PO QAM Qty: 30 RF: 3 levothyroxine [Tirosint] 25 mcg capsule 25 mcg PO QAM 30 Days Qty: 30 RF: 3 cholecalciferol (vitamin D3) 25 mcg (1,000 unit) tablet 25 mcg PO DAILY 90 Days Qty: 90 RF: 3 ketorolac 10 mg tablet 10 mg PO QID 5 Days Qty: 20 RF: 0 ondansetron 4 mg tablet,disintegrating 4 mg PO Q6-8H PRN (Reason: nausea and vomiting) Qty: 14 RF: 0 phenazopyridine [Pyridium] 100 mg tablet 100 mg PO TID PRN (Reason: spasm) 4 Days Qty: 12 RF: 0 tramadol 50 mg tablet 50 mg PO Q6H PRN (Reason: pain (scale score 4-6)) Qty: 14 RF: 0 albuterol sulfate [ProAir HFA] 90 mcg/actuation HFA aerosol inhaler 2 puff inhalation Q6H PRN (Reason: shortness of breath or wheezing) 30 Days Qty: 8.5 RF: 3 tamsulosin [Flomax] 0.4 mg capsule 0.4 mg PO BEDTIME 30 Days Qty: 30 RF: 3 vtbkxoyjdj-hfhrvgemucxmp-hzcj [Fioricet] 50-300-40 mg capsule 1 cap PO Q4-6H PRN (Reason: Migraine Headache) 30 Days Qty: 100 RF: 3 meclizine 25 mg tablet 25 mg PO TID PRN (Reason: dizziness) 30 Days Qty: 90 RF: 1 cholecalciferol (vitamin D3) 25 mcg (1,000 unit) capsule 25 mcg PO DAILY RF: 0 naproxen 500 mg tablet 500 mg PO BID PRN (Reason: pain) Qty: 60 RF: 0 prednisone 20 mg tablet 20 mg PO .COMPLEX Qty: 18 RF: 0 amoxicillin-pot clavulanate [Augmentin] 875-125 mg tablet 1 tab PO BID Qty: 20 RF: 0 diazepam [Valium] 5 mg tablet See Rx Instructions PO ONCE PRN (Reason: sleep) Qty: 1 RF: 0 allopurinol 100 mg tablet 100 mg PO DAILY 90 Days Qty: 90 RF: 1 pyridoxine (vitamin B6) 100 mg tablet 100 mg PO DAILY 90 Days Qty: 90 RF: 1
[2020-09-10 14:46] LABS: MANUAL DIFF FLAG NO
[2020-09-10] MEDS: methylPREDNISolone Sod Succ 125 MG/2 ML VIAL 60 MG IVPUSH (14:46)
[2020-09-10] MEDS: Magnesium Sulfate/H2O 2 GM/50 ML PIGGYBACK IV (14:46)
[2020-09-10] MEDS: ondansetron HCL 4 MG/2 ML VIAL IVPUSH (14:46)
[2020-09-10 14:48] LABS: Basophils Absolute Auto 0.1 X10*3/uL (0.0-0.2); Basophils Percent Auto 0.4 % (0-2); Eosinophils Percent Auto 0.3 % (0-4); Hematocrit 38.7 % (37-47); Hemoglobin 13.7 g/dl (12.0-16.0); Imm Gran Abs Auto 0.07 X10*3/uL (0.00-0.03); Imm Gran Pct Auto 0.6 % (0.0-0.4); Lymphocytes Absolute Auto 1.1 X10*3/uL (1.2-4.9); Lymphocytes Percent Auto 9.3 % (20-40); Mean Corpuscular HGB Conc 35.4 g/dl (31.0-35.0); Mean Corpuscular Hemoglobin 31.4 pg (27.0-33.0); Mean Corpuscular Volume 88.6 fL (80-98); Mean Platelet Volume 9.8 fL (9.4-12.3); Monocytes Absolute Auto 0.4 X10*3/uL (0.1-1.2); Monocytes Percent Auto 3.3 % (2-11); Neutrophils Absolute Auto 9.8 X10*3/uL (2.0-8.3); Neutrophils Percent Auto 86.1 % (45-73); Platelet Count 343 X10*3/uL (160-400); Red Blood Count 4.37 X10*6/uL (4.20-5.50); Red Cell Distribution Width 11.7 % (11.0-16.0); White Blood Count 11.3 X10*3/uL (4.8-10.8)
[2020-09-10] MEDS: Albuterol Sulfate (0.083%) 2.5 MG/3 ML VIAL.NEB 5 MG INHALE ×3 (14:48→18:15)
--- NOTE | 2020-09-10 15:06 | PC.NURSE ---
Patient sitting up in high fowlers position receiving a HFN treatment per respiratory therapy. Patient complains of shortness of breath and chest feeling heavy.
[2020-09-10 15:20] LABS: Anion Gap 12 (12-20); Blood Urea Nitrogen 11 mg/dL (9-16); Carbon Dioxide 24 mmol/L (22-29); Chloride 106 mmol/L (96-108); Creatinine Clr Calc Pharmacy 153.3; Estimated Glomerular Filt Rate > 60; Glucose Random 146 mg/dL (60-115); Sodium 138 mmol/L (135-145)
[2020-09-10 15:21] LABS: Alanine Aminotransferase 32 U/L (0-31); Albumin Level 4.1 g/dL (3.5-5.0); Alkaline Phosphatase 84 U/L (39-117); Aspartate Amino Transferase 25 U/L (5-31); Bilirubin Direct 0.2 mg/dL (0.0-0.5); Bilirubin Total 0.6 mg/dL (0.0-1.0); Magnesium 1.5 mg/dL (1.6-2.6); Total Protein 6.5 g/dL (6.5-8.0)
[2020-09-10 15:25] LABS: Troponin-I High Sensitivity < 3.5 ng/L (<3.5-17.0)
--- NOTE | 2020-09-10 17:13 | PC.NURSE ---
Patient is sitting up in bed in no distress. Respirations are even and nonlabored. Auscultation of breath sounds reveals patient moving more air than when she arrived. Pt is now able to speak in complete sentences.
[2020-09-10 17:16] LABS: Influenza A PCR NEGATIVE (Negative); Influenza B PCR NEGATIVE (Negative); Resp Syncy Virus RNA Qual PCR NEGATIVE (Negative); SARS COV2 PCR INHOUSE NEGATIVE (Negative)
--- NOTE | 2020-09-10 18:56 | PC.NURSE ---
Report taken from genaro Razo RN resuming care. Pt found sitting upright in bed, ST on the monitor @ 130 bpm. While ambulating in room, HR noted to be 140-150 bpm. aware. Pt CAOx4, speaking full sentences, continues reporting SOB and chest heaviness. Pt aware of plan to monitor at this time.
--- NOTE | 2020-09-10 20:00 | PHA.MEDREC ---
Pharmacy Consult ? Medication Reconciliation Pharmacy has completed the medication reconciliation.
--- NOTE | 2020-09-10 20:18 | PM.IMHP ---
History of Present Illness Date of Service: 09/10/20 Chief Complaint: SOB 45-year-old female with past medical history of asthma, HTN, HLD, hypothyroidism vertigo presents to the hospital with complaints of shortness of breath. Patient reports that her symptoms started about a week ago, she has wheezing, cough, no sputum production, was well as pain in the sinuses. Patient reports that she went to walk-in clinic, and prescribed prednisone as well as Augmentin with no relief of her symptoms. Patient reports that her do neb treatments at home were not effective therefore decided to come to the hospital. She denies any chest pain, no abdominal pain, no fever or chills, no urinary symptoms and no lower extremity edema. No nausea or vomiting, no diarrhea constipation. No headache or change in vision Vitals are on arrival were significant for temperature of 98.3?, heart rate of 103, respiratory rate of 20, blood pressure 152/80, satting 95% on 1 L of oxygen Labs were significant for WBC count of 11.3, magnesium of 1.5, ALT of 32 otherwise unremarkable Chest x-ray negative for any pathology COVID-19 negative Patient received multiple rounds of albuterol treatments, as well as Solu-Medrol with no relief of her symptoms and therefore she will be admitted for asthma exacerbation Review of Systems Review of Systems: Yes all other systems are reviewed and are negative [facility] 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 Lumbar disc herniation Migraine Morbid obesity with BMI of 40.0-44.9, adult Obesity Patellar fracture Pericardial effusion Postsurgical hypothyroidism Pure hypercholesterolemia Vertigo Vitamin D deficiency Family History Daughter Von Willebrand disease Other Asthma Diabetes Emphysema of lung Family history of bladder cancer Family history of breast cancer Family history of lung cancer Family history of prostate cancer Surgical History History of ankle surgery History of back surgery History of bladder surgery History of section History of cholecystectomy History of pubovaginal sling History of thyroid surgery Hx of cystoscopy Hx of tubal ligation Tubal ligation status Social History Household Members: Family and Children Housing: House Do you presently have visiting nurse or other home services: No Alcohol intake: never Patient Tobacco Use Status: Never used Tobacco Use of substances other than those prescribed or required for medical reasons: No Currently Displaying Signs/Symptoms of Drug Intoxication Withdrawal: No Have you been hit, kicked, punched, or otherwise hurt by someone within the past year? If so, by whom?: No Do you feel safe in your current relationship?: Yes Is there a partner from a previous relationship who is making you feel unsafe now?: No Are you made to feel afraid or neglected: No Advance Directives: No Advance Directives Information Provided: No Do you have thoughts of harming others: None Do you have a plan to hurt others: No Plan Recently lost weight without trying: No Nutrition Risks: No Nutritional Risk Patient : No : No Poor oral hygiene: No Meds Allergies Allergy/AdvReac Type Severity Reaction Status Date / Time oxycodone [OXYCODONE] Allergy Intermediate RASH,SHAKES, Verified 09/05/20 10:46 shakiness, body shaking, tremors Active Medications: Current Medications Generic Name Dose Route Start Last Admin Trade Name Freq PRN Reason Stop Dose Admin Pharmacy Consult 1 each 09/10/20 19:45 Consult Rx Perform Med Rec MISCELLANE ONCE PRN Consult order Physical Exam Vital Signs and Narrative: Vital Signs: Last Vital Signs Temp 98.2 F 09/10/20 19:24 Pulse 119 H 09/10/20 19:24 Resp 16 09/10/20 19:24 BP 125/89 09/10/20 19:24 Pulse Ox 94 09/10/20 19:24 Oxygen Flow Rate 1 09/10/20 14:27 Body Mass Index 33.9 Const: General: cooperative and no acute distress Orientation/consciousness: patient oriented x3 Eyes: General: appearance normal, both eyes and all related structures Resp: Other: Expiratory wheezing Effort & Inspection: normal respiratory effort and able to speak in complete sentences Cardio: Rate: regular rate Rhythm: regular rhythm GI: Palpation (GI): Soft to palpation Auscultation: normal bowel sounds Skin: General skin exam: no rashes or lesions noted Neuro: General: patient oriented x3 Cognition (Neuro): normal cognition Extrem: General: Yes normal to inspection and Yes no pedal edema Results Labs CBC and Chem 7: 09/10/20 14:40 09/10/20 14:40 Labs: Laboratory Results - last 24 hr 09/10/20 09/10/20 09/10/20 14:40 14:40 14:40 MCV 88.6 MCH 31.4 MCHC 35.4 H RDW 11.7 Plt Count 343 MPV 9.8 Immature Gran % (Auto) 0.6 H Neut % (Auto) 86.1 H Lymph % (Auto) 9.3 L [place] % (Auto) 3.3 Eos % (Auto) 0.3 Baso % (Auto) 0.4 Lymph # (Auto) 1.1 L [place] # (Auto) 0.4 Eos # (Auto) 0.0 Baso # (Auto) 0.1 Abs Immat Gran (auto) 0.07 H Absolute Neuts (auto) 9.8 H Absolute Nucleated RBC 0.000 Nucleated RBC % (auto) 0.0 Anion Gap 12 Estim Creat Clear Calc 153.3 Estimated GFR > 60 Random Glucose 146 H D Calcium 9.0 Magnesium 1.5 L Total Bilirubin 0.6 Direct Bilirubin 0.2 AST 25 D ALT 32 H Alkaline Phosphatase 84 D Troponin I High Sens Total Protein 6.5 Albumin 4.1 Coronavirus (PCR) Influenza Type A (PCR) Influenza Type B (PCR) RSV RNA Qual (PCR) 09/10/20 09/10/20 14:40 16:24 MCV MCH MCHC RDW Plt Count MPV Immature Gran % (Auto) Neut % (Auto) Lymph % (Auto) [place] % (Auto) Eos % (Auto) Baso % (Auto) Lymph # (Auto) [place] # (Auto) Eos # (Auto) Baso # (Auto) Abs Immat Gran (auto) Absolute Neuts (auto) Absolute Nucleated RBC Nucleated RBC % (auto) Anion Gap Estim Creat Clear Calc Estimated GFR Random Glucose Calcium Magnesium Total Bilirubin Direct Bilirubin AST ALT Alkaline Phosphatase Troponin I High Sens < 3.5 Total Protein Albumin Coronavirus (PCR) NEGATIVE Influenza Type A (PCR) NEGATIVE Influenza Type B (PCR) NEGATIVE RSV RNA Qual (PCR) NEGATIVE Imaging Radiologist's Impressions: Impressions Chest X-Ray 09/10/20 14:33 IMPRESSION: Unremarkable chest examination. Assessment and Plan (1) Asthma exacerbation: Status: Acute (2) Hypomagnesemia: Status: Acute (3) Acute sinusitis: Qualifiers: Sinusitis location: unspecified location Recurrence: not specified as recurrent Qualified Code(s): J01.90 - Acute sinusitis, unspecified Status: Acute with past medical history of asthma presents to the hospital with shortness of breath found to have asthma exacerbation # asthma exacerbation - most likely secondary to acute sinusitis infection - chest x-ray negative for pneumonia, COVID-19 negative - will start on DuoNeb, Solu-Medrol - currently on 1 L of oxygen although for comfort rather than hypoxia - titrate oxygen off as tolerated # leukocytosis - most likely secondary to use of prednisone - no evidence of acute infection such as UTI or pneumonia - will continue Augmentin for her sinusitis # hypomagnesemia - repleted # acute sinusitis - continue Augmentin # hypothyroidism - continue levothyroxine # vertigo - continue meclizine DVT prophylaxis: Lovenox Quality Stroke Does the patient have a stroke diagnosis?: No VTE Prior VTE?: No VTE Risk Level:: Medical - moderate - high VTE Device Contraindication: Treatment Not Indicated VTE Drug Contraindication: N/A - Med Ordered
--- NOTE | 2020-09-10 21:08 | PC.NURSE ---
This RN giving report to RN on M/S. M/S RN concerned, asking this RN to inquire about tele orders due to tachycardia. Per hospitalist, tele orders not required. senior engineering tech to prepare pt for transport to floor.
[2020-09-10] MEDS: methylPREDNISolone Sod Succ 40 MG/ML VIAL IVPUSH (21:36)
[2020-09-10] MEDS: Enoxaparin Sodium 40 MG/0.4 ML SYRINGE SUBCUT (21:36)
[2020-09-10] MEDS: Albuterol/Iprat 2.5/0.5MG 3 ML AMPUL.NEB INHALE (23:07)
[2020-09-10] MEDS: 0.9 % Sodium Chloride Flush 3 ML SYRINGE IVFLUSH (23:33)
[2020-09-11] VITALS (11 sets, daily range): BP systolic 124–180; BP diastolic 64–96; PULSE 78–120; RESP 15–20; TEMP 36.1–37; O2SAT 92–100
[2020-09-11 06:59] LABS: MANUAL DIFF FLAG NO
[2020-09-11 07:08] LABS: Basophils Percent Auto 0.2 % (0-2); Hematocrit 40.6 % (37-47); Hemoglobin 13.6 g/dl (12.0-16.0); Imm Gran Abs Auto 0.19 X10*3/uL (0.00-0.03); Imm Gran Pct Auto 1.1 % (0.0-0.4); Lymphocytes Absolute Auto 1.7 X10*3/uL (1.2-4.9); Lymphocytes Percent Auto 9.7 % (20-40); Mean Corpuscular HGB Conc 33.5 g/dl (31.0-35.0); Mean Corpuscular Hemoglobin 30.4 pg (27.0-33.0); Mean Corpuscular Volume 90.6 fL (80-98); Mean Platelet Volume 10.7 fL (9.4-12.3); Monocytes Absolute Auto 1.1 X10*3/uL (0.1-1.2); Monocytes Percent Auto 6.2 % (2-11); Neutrophils Percent Auto 82.8 % (45-73); Platelet Count 310 X10*3/uL (160-400); Red Blood Count 4.48 X10*6/uL (4.20-5.50); Red Cell Distribution Width 11.8 % (11.0-16.0); White Blood Count 16.9 X10*3/uL (4.8-10.8)
[2020-09-11 07:31] LABS: Anion Gap 15 (12-20); Blood Urea Nitrogen 14 mg/dL (9-16); Calcium 9.1 mg/dL (8.4-10.2); Carbon Dioxide 20 mmol/L (22-29); Chloride 107 mmol/L (96-108); Creatinine Clr Calc Pharmacy 159.1; Estimated Glomerular Filt Rate > 60; Glucose Random 142 mg/dL (60-115); Sodium 138 mmol/L (135-145)
[2020-09-11] MEDS: Albuterol/Iprat 2.5/0.5MG 3 ML AMPUL.NEB INHALE ×4 (07:44→20:07)
--- NOTE | 2020-09-11 08:38 | MHC.CM.PN ---
PATIENT LIVES WITH HER BOYFRIEND AND HER TWO ADULT DAUGHTERS. NO DME FOR AMBULATION. PATIENT DOES RELY ON INHALERS. NO HOME O2 OR CONCENTRATOR. PATIENT REPORTS THAT HER DAUGHTER MANDIE WILL PROVIDE TRANSPORT HOME. HCP IS ON FILE AND VERIFIED. PATIENT DOES REPORT THAT HER FORMER SPOUSE (NIKA - FIRST HCP AGENT) IS NO LONGER WHO SHE WANTS, BUT DOES AGREE THAT IF SHE WERE TO NEED HIM TO BE, SHE TRUSTS HIM. AT THIS TIME, SHE WANTS TO CHANGE HER AGENTS, BUT IS NOT YET SURE WHO SHE WANTS TO DESIGNATE. SHE IS AWARE THAT CASE MANAGEMENT CAN PROVIDE ASSISTANCE WHEN SHE DECIDES.
[2020-09-11] MEDS: 0.9 % Sodium Chloride Flush 3 ML SYRINGE IVFLUSH ×3 (08:54→20:47)
[2020-09-11] MEDS: Amoxicillin/Potassium Clav 875 MG TABLET PO ×2 (08:54→20:46)
[2020-09-11] MEDS: methylPREDNISolone Sod Succ 40 MG/ML VIAL IVPUSH ×2 (08:54→20:46)
--- NOTE | 2020-09-11 14:13 | P.PNIM_ITS ---
Subjective Subjective Date of Service: 09/11/20 Interval History: Seen and examined this morning in follow-up for asthma exacerbation Patient reports improvement in breathing Feels on ready to be discharged home, requesting to use oxygen as it makes her feel better although no hypoxia has been documented Review of Systems Review of Systems: Yes all other systems are reviewed and are negative Constitutional Constitutional: Denies chills and Denies fever(s) Cardiovascular Cardiovascular: Denies chest pain Gastrointestinal Gastrointestinal: Denies abdominal pain Physical Exam Vital Signs: Vital Signs: Last Vital Signs Temp 97.8 F 09/11/20 11:16 Pulse 78 09/11/20 11:16 Resp 16 09/11/20 11:16 BP 156/89 H 09/11/20 11:16 Pulse Ox 93 09/11/20 11:16 Oxygen Flow Rate 1 09/10/20 14:27 Body Mass Index 33.9 Const: Nutritional Appearance: overweight Orientation/consciousness: patient oriented x3 HENMT: Head: Yes normocephalic and Yes atraumatic Eyes: Sclerae: sclerae normal Chest: Chest palpation & inspection: normal inspection of the chest Resp: Effort & Inspection: normal respiratory effort and no respiratory distress Auscultation: clear to auscultation bilaterally Cardio: Rate: regular rate Rhythm: regular rhythm GI: Palpation (GI): Soft to palpation and nontender Neuro: General: patient oriented x3 Cranial nerves: Yes CN's II-XII intact bilaterally and Yes Bilaterally intact EOM present Objective Data Current Medications Generic Name Dose Route Start Last Admin Trade Name Freq PRN Reason Stop Dose Admin Acetaminophen 650 mg 09/10/20 21:03 Acetaminophen 325 Mg Tablet PO Q6H PRN Pain, Mild (Pain Scale 1-3) Albuterol/Ipratropium 3 ml 09/10/20 21:03 09/11/20 12:33 Albuterol/Iprat 2.5/0.5mg 3 Ml Ampul.Neb INHALE 3 ml RQ4H WHILE AWAKE LUZ MARIA Administration Albuterol/Ipratropium 3 ml 09/10/20 21:03 Albuterol/Iprat 2.5/0.5mg 3 Ml Ampul.Neb INHALE RQ4H PRN Shortness of Breath/Wheezing Allopurinol 100 mg 09/11/20 09:00 09/11/20 08:51 Allopurinol 100 Mg Tablet PO Not Given DAILY LUZ MARIA Amoxicillin/Clavulanate Potassium 875 mg 09/11/20 09:00 09/11/20 08:54 Amoxicillin/Potassium Clav 875 Mg Tablet PO 875 mg BID [facility] Administration Docusate Sodium 100 mg 09/10/20 21:03 Docusate Sodium 100 Mg Capsule PO DAILY PRN Constipation Enoxaparin Sodium 40 mg 09/10/20 21:03 09/10/20 21:36 Enoxaparin Sodium 40 Mg/0.4 Ml Syringe SUBCUT 40 mg Q24H [facility] Administration Levothyroxine Sodium 25 mcg 09/11/20 07:00 Levothyroxine Sodium 25 Mcg Tablet PO DAILY@0600 [facility] Levothyroxine Sodium 150 mcg 09/11/20 07:00 Levothyroxine Sodium 150 Mcg Tablet PO DAILY@0600 [facility] Levothyroxine Sodium 100 mcg 09/12/20 09:00 Levothyroxine Sodium 100 Mcg Tablet PO DAILY [facility] Lisinopril 30 mg 09/11/20 15:00 Lisinopril 10 Mg Tablet PO DAILY [facility] Protocol Meclizine HCl 25 mg 09/11/20 05:59 Meclizine Hcl 25 Mg Tablet PO TID PRN dizziness Methylprednisolone Sodium Succinate 40 mg 09/10/20 21:03 09/11/20 08:54 Methylprednisolone Sod Succ 40 Mg/Ml Vial IVPUSH 40 mg Q12H [facility] Administration Non-Formulary Medication 100 mg 09/12/20 09:00 Pyridoxine (Vitamin B6) PO DAILY [facility] Ondansetron HCl 4 mg 09/10/20 21:03 Ondansetron Hcl 4 Mg/2 Ml Vial IVPUSH Q8H PRN Nausea and Vomiting Pharmacy Consult 1 each 09/10/20 19:45 Consult Rx Perform Med Rec MISCELLANE ONCE PRN Consult order Sodium Chloride 3 ml 09/11/20 00:00 09/11/20 08:54 0.9 % Sodium Chloride Flush 3 Ml Syringe IVFLUSH 3 ml QSHIFT [facility] Administration Tamsulosin HCl 0.4 mg 09/11/20 21:00 Tamsulosin Hcl 0.4 Mg Capsule PO BEDTIME [facility] Vitamin D 25 mcg 09/11/20 09:00 Cholecalciferol (Vitamin D3) 25 Mcg Tablet PO DAILY [facility] Labs CBC & Chem 7: 09/11/20 06:44 09/11/20 06:44 Labs: Laboratory Results - last 24 hr 09/10/20 09/10/20 09/10/20 14:40 14:40 14:40 WBC 11.3 H RBC 4.37 Hgb 13.7 Hct 38.7 MCV 88.6 MCH 31.4 MCHC 35.4 H RDW 11.7 Plt Count 343 MPV 9.8 Immature Gran % (Auto) 0.6 H Neut % (Auto) 86.1 H Lymph % (Auto) 9.3 L [place] % (Auto) 3.3 Eos % (Auto) 0.3 Baso % (Auto) 0.4 Lymph # (Auto) 1.1 L [place] # (Auto) 0.4 Eos # (Auto) 0.0 Baso # (Auto) 0.1 Abs Immat Gran (auto) 0.07 H Absolute Neuts (auto) 9.8 H Absolute Nucleated RBC 0.000 Nucleated RBC % (auto) 0.0 Sodium 138 Potassium 4.0 Chloride 106 Carbon Dioxide 24 Anion Gap 12 BUN 11 Creatinine 0.55 Estim Creat Clear Calc 153.3 Estimated GFR > 60 Random Glucose 146 H D Calcium 9.0 Magnesium 1.5 L Total Bilirubin 0.6 Direct Bilirubin 0.2 AST 25 D ALT 32 H Alkaline Phosphatase 84 D Troponin I High Sens Total Protein 6.5 Albumin 4.1 Coronavirus (PCR) Influenza Type A (PCR) Influenza Type B (PCR) RSV RNA Qual (PCR) 09/10/20 09/10/20 09/11/20 14:40 16:24 06:44 WBC 16.9 H RBC 4.48 Hgb 13.6 Hct 40.6 MCV 90.6 MCH 30.4 MCHC 33.5 RDW 11.8 Plt Count 310 MPV 10.7 Immature Gran % (Auto) 1.1 H Neut % (Auto) 82.8 H Lymph % (Auto) 9.7 L [place] % (Auto) 6.2 Eos % (Auto) 0.0 Baso % (Auto) 0.2 Lymph # (Auto) 1.7 [place] # (Auto) 1.1 Eos # (Auto) 0.0 Baso # (Auto) 0.0 Abs Immat Gran (auto) 0.19 H Absolute Neuts (auto) 14.0 H Absolute Nucleated RBC 0.000 Nucleated RBC % (auto) 0.0 Sodium Potassium Chloride Carbon Dioxide Anion Gap BUN Creatinine Estim Creat Clear Calc Estimated GFR Random Glucose Calcium Magnesium Total Bilirubin Direct Bilirubin AST ALT Alkaline Phosphatase Troponin I High Sens < 3.5 Total Protein Albumin Coronavirus (PCR) NEGATIVE Influenza Type A (PCR) NEGATIVE Influenza Type B (PCR) NEGATIVE RSV RNA Qual (PCR) NEGATIVE 09/11/20 06:44 WBC RBC Hgb Hct MCV MCH MCHC RDW Plt Count MPV Immature Gran % (Auto) Neut % (Auto) Lymph % (Auto) [place] % (Auto) Eos % (Auto) Baso % (Auto) Lymph # (Auto) [place] # (Auto) Eos # (Auto) Baso # (Auto) Abs Immat Gran (auto) Absolute Neuts (auto) Absolute Nucleated RBC Nucleated RBC % (auto) Sodium 138 Potassium 4.0 Chloride 107 Carbon Dioxide 20 L Anion Gap 15 BUN 14 Creatinine 0.53 Estim Creat Clear Calc 159.1 Estimated GFR > 60 Random Glucose 142 H Calcium 9.1 Magnesium Total Bilirubin Direct Bilirubin AST ALT Alkaline Phosphatase Troponin I High Sens Total Protein Albumin Coronavirus (PCR) Influenza Type A (PCR) Influenza Type B (PCR) RSV RNA Qual (PCR) Quality Stroke Does the patient have a stroke diagnosis?: No VTE Prior VTE?: No VTE Risk Level:: Medical - moderate - high VTE Device Contraindication: Treatment Not Indicated VTE Drug Contraindication: N/A - Med Ordered Assessment and Plan (1) Asthma exacerbation: Status: Acute Assessment and Plan: This is a 45-year-old female with past medical history of asthma presents to the hospital with shortness of breath found to have asthma exacerbation #asthma exacerbation still feeling short of breath, although lung sounds improving - most likely secondary to acute sinusitis infection - chest x-ray negative for pneumonia, COVID-19 negative - continue DuoNeb, Solu-Medrol, transition to oral prednisone in a.m. - currently on 1 L of oxygen although for comfort rather than hypoxia, discussed need to titrate off oxygen # leukocytosis - likely secondary to use of prednisone - no evidence of acute infection such as UTI or pneumonia - will continue Augmentin for her sinusitis # hypomagnesemia - repleted # acute sinusitis - continue Augmentin # hypothyroidism - continue levothyroxine # vertigo - continue meclizine # hypertension -continue lisinopril DVT prophylaxis: Lovenox Attending-Dr. Cortez
[2020-09-11] MEDS: allopurinoL 100 MG TABLET PO (14:40)
[2020-09-11] MEDS: Levothyroxine Sodium 25 MCG TABLET PO (14:41)
[2020-09-11] MEDS: Levothyroxine Sodium 150 MCG TABLET PO (14:41)
[2020-09-11] MEDS: Levothyroxine Sodium 100 MCG TABLET PO (14:41)
[2020-09-11] MEDS: lisinopriL 10 MG TABLET 30 MG PO (14:41)
[2020-09-11 14:44] LABS: Magnesium 1.8 mg/dL (1.6-2.6)
[2020-09-11] MEDS: Cholecalciferol (Vitamin D3) 25 MCG TABLET PO (14:44)
[2020-09-11] MEDS: Tamsulosin HCL 0.4 MG CAPSULE PO (20:46)
[2020-09-11] MEDS: Enoxaparin Sodium 40 MG/0.4 ML SYRINGE SUBCUT (20:46)
[2020-09-12 03:26] VITALS: BP 133/70; PULSE 81; RESP 19; TEMP 36.5; O2SAT 95
[2020-09-12] MEDS: Levothyroxine Sodium 100 MCG TABLET PO (05:23)
[2020-09-12] MEDS: Levothyroxine Sodium 25 MCG TABLET PO (05:23)
[2020-09-12] MEDS: Levothyroxine Sodium 150 MCG TABLET PO (05:24)
[2020-09-12] MEDS: Albuterol/Iprat 2.5/0.5MG 3 ML AMPUL.NEB INHALE (07:36)
[2020-09-12 07:38] VITALS: PULSE 87; O2SAT 98
[2020-09-12 07:45] VITALS: BP 122/64; PULSE 93; RESP 18; TEMP 36; O2SAT 96
[2020-09-12] MEDS: Amoxicillin/Potassium Clav 875 MG TABLET PO (08:41)
[2020-09-12] MEDS: allopurinoL 100 MG TABLET PO (08:42)
[2020-09-12] MEDS: Pyridoxine HCl (Vitamin B6) 50 MG TABLET 100 MG PO (08:42)
[2020-09-12] MEDS: lisinopriL 10 MG TABLET 30 MG PO (08:42)
[2020-09-12] MEDS: Cholecalciferol (Vitamin D3) 25 MCG TABLET PO (08:42)
[2020-09-12] MEDS: predniSONE 20 MG TABLET PO (08:42)
[2020-09-12] MEDS: 0.9 % Sodium Chloride Flush 3 ML SYRINGE IVFLUSH (08:43)
--- NOTE | 2020-09-12 10:44 | PM.DS ---
DS: Providers Provider Date of Service: 09/12/20 <PEGGY Smith - Last Filed: 09/12/20 11:39> Date of admission: 09/10/20 19:56 <PEGGY Smith - Last Filed: 09/12/20 11:39> Primary care physician: Tamela Pelaez MD <PEGGY Smith - Last Filed: 09/12/20 11:39> DS: Diagnosis Discharge Diagnosis (1) Asthma exacerbation: Status: Acute <PEGGY Smith - Last Filed: 09/12/20 11:39> DS: Medications Discharge Medications Home Medications: Home Medications Medication Instructions Recorded Confirmed levothyroxine [Tirosint] 100 mcg PO DAILY 09/11/20 09/11/20 lisinopril 1 tab PO DAILY 09/11/20 09/11/20 Previous Rx's Medication Instructions Recorded Tirosint 150 mcg capsule 150 mcg PO QAM #30 cap NS 06/25/20 Tirosint 25 mcg capsule 25 mcg PO QAM 30 Days #30 cap NS 06/25/20 allopurinol 100 mg tablet 100 mg PO DAILY 90 Days #90 tab 06/25/20 pyridoxine (vitamin B6) 100 mg 100 mg PO DAILY 90 Days #90 tab 06/25/20 tablet albuterol sulfate 90 mcg/actuation 2 puff INHALATION Q6H PRN 30 Days 07/02/20 aerosol inhaler #8.5 g meclizine 25 mg tablet 25 mg PO TID PRN 30 Days #90 tab 07/02/20 tamsulosin 0.4 mg capsule 0.4 mg PO BEDTIME 30 Days #30 cap 07/02/20 amoxicillin 875 mg-potassium 1 tab PO BID #20 tab 09/05/20 clavulanate 125 mg tablet prednisone 20 mg tablet 20 mg PO .COMPLEX #18 tab 09/05/20 cholecalciferol (vitamin D3) 25 25 mcg PO DAILY 90 Days #90 tab 09/09/20 mcg (1,000 unit) tablet benzonatate [Tessalon Perles] 100 mg PO TID PRN 7 Days #21 cap 09/12/20 <PEGGY Smith - Last Filed: 09/12/20 11:39> DS: Summary Hospital Course Hospital Course: From HD on day of admission 45-year-old female with past medical history of asthma, HTN, HLD, hypothyroidism vertigo presents to the hospital with complaints of shortness of breath. Patient reports that her symptoms started about a week ago, she has wheezing, cough, no sputum production, was well as pain in the sinuses. Patient reports that she went to walk-in clinic, and prescribed prednisone as well as Augmentin with no relief of her symptoms. Patient reports that her do neb treatments at home were not effective therefore decided to come to the hospital. She denies any chest pain, no abdominal pain, no fever or chills, no urinary symptoms and no lower extremity edema. No nausea or vomiting, no diarrhea constipation. No headache or change in vision Vitals are on arrival were significant for temperature of 98.3?, heart rate of 103, respiratory rate of 20, blood pressure 152/80, satting 95% on 1 L of oxygen Labs were significant for WBC count of 11.3, magnesium of 1.5, ALT of 32 otherwise unremarkable Chest x-ray negative for any pathology COVID-19 negative Asthma: Patient was started on IV Solu-Medrol as well as breathing treatments. Chest x-ray showed no evidence of pneumonia. She was continued on her Augmentin that was started as an outpatient for her sinusitis. She never had any episodes of hypoxia. She was transition to oral prednisone. Her and wheezing breathing have improved. She will be discharged home to continue her previously ordered prednisone taper. She should finish her course of Augmentin. She should continue her albuterol as needed. She will be discharged home with Tessalon to assist in her cough. She should call to schedule follow-up appointment with her PCP. Attending Attestation: Patient seen and examined independently and I was present during rehman portion of E/M service. Agree with PEGGY Murdock's history, physical, assessment, and plan. <PEGGY Smith - Last Filed: 09/12/20 11:39> Time Spent with Patient Time attestation: Total time spent providing and/or coordinating discharge services: <PEGGY Smith - Last Filed: 09/12/20 11:39> Discharge coordination time: Greater than 30 minutes <PEGGY Smith - Last Filed: 09/12/20 11:39> Quality: Stroke Does the patient have a stroke diagnosis?: No <PEGGY Smith - Last Filed: 09/12/20 11:39> Physical Exam Vital Signs: Vital Signs: Last Vital Signs Temp 96.8 F 09/12/20 07:45 Pulse 93 09/12/20 07:45 Resp 18 09/12/20 07:45 BP 122/64 09/12/20 07:45 Pulse Ox 96 09/12/20 07:45 Oxygen Flow Rate 1 09/10/20 14:27 Body Mass Index 33.9 <PEGGY Smith - Last Filed: 09/12/20 11:39> Const: Nutritional Appearance: well nourished <PEGGY Smith - Last Filed: 09/12/20 11:39> Orientation/consciousness: patient oriented x3 <PEGGY Smith - Last Filed: 09/12/20 11:39> HENMT: Head: Yes normocephalic and Yes atraumatic <PEGGY Smith - Last Filed: 09/12/20 11:39> Eyes: Sclerae: sclerae normal <PEGGY Smith - Last Filed: 09/12/20 11:39> Chest: Chest palpation & inspection: normal inspection of the chest <PEGGY Smith - Last Filed: 09/12/20 11:39> Resp: Effort & Inspection: normal respiratory effort and no respiratory distress <PEGGY Smith - Last Filed: 09/12/20 11:39> Cardio: Rate: regular rate <PEGGY Smith - Last Filed: 09/12/20 11:39> Rhythm: regular rhythm <PEGGY Smith - Last Filed: 09/12/20 11:39> GI: Palpation (GI): Soft to palpation and nontender <PEGGY Smith - Last Filed: 09/12/20 11:39> Neuro: General: patient oriented x3 <PEGGY Smith - Last Filed: 09/12/20 11:39> Cranial nerves: Yes CN's II-XII intact bilaterally and Yes Bilaterally intact EOM present <PEGGY Smith - Last Filed: 09/12/20 11:39> DS: Data Data Completed and Pending Labs on day of discharge: Laboratory Results - last 24 hr 09/11/20 06:44 Magnesium 1.8 <PEGGY Smith - Last Filed: 09/12/20 11:39> Discharge Plan Discharge Patient Disposition: Home, Self-Care <PEGGY Smith - Last Filed: 09/12/20 11:39> Discharge Diagnosis: acute asthma exacerbation <PEGGY Smith - Last Filed: 09/12/20 11:39> acute asthma exacerbation <Breezy Cortez MD - Last Filed: 09/12/20 13:03> Referrals: Po,Tamela Enriquez MD [Primary Care Provider] - 1 Week <PEGGY Smith - Last Filed: 09/12/20 11:39> Discharge Medications: New benzonatate [Tessalon Perles] 100 mg capsule 100 mg PO TID PRN (Reason: cough) 7 Days Qty: 21 RF: 0 Continued levothyroxine [Tirosint] 150 mcg capsule 150 mcg PO QAM Qty: 30 RF: 3 levothyroxine [Tirosint] 25 mcg capsule 25 mcg PO QAM 30 Days Qty: 30 RF: 3 cholecalciferol (vitamin D3) 25 mcg (1,000 unit) tablet 25 mcg PO DAILY 90 Days Qty: 90 RF: 3 lisinopril 30 mg tablet 1 tab PO DAILY RF: 0 levothyroxine [Tirosint] 100 mcg capsule 100 mcg PO DAILY RF: 0 albuterol sulfate [ProAir HFA] 90 mcg/actuation HFA aerosol inhaler 2 puff inhalation Q6H PRN (Reason: shortness of breath or wheezing) 30 Days Qty: 8.5 RF: 3 tamsulosin [Flomax] 0.4 mg capsule 0.4 mg PO BEDTIME 30 Days Qty: 30 RF: 3 meclizine 25 mg tablet 25 mg PO TID PRN (Reason: dizziness) 30 Days Qty: 90 RF: 1 prednisone 20 mg tablet 20 mg PO .COMPLEX Qty: 18 RF: 0 amoxicillin-pot clavulanate [Augmentin] 875-125 mg tablet 1 tab PO BID Qty: 20 RF: 0 allopurinol 100 mg tablet 100 mg PO DAILY 90 Days Qty: 90 RF: 1 pyridoxine (vitamin B6) 100 mg tablet 100 mg PO DAILY 90 Days Qty: 90 RF: 1 <PEGGY Smith - Last Filed: 09/12/20 11:39> Discharge Orders: Discharge Order (Routine); Ordered 09/12/20 Ordered By: Mariann Byers <PEGGY Smith - Last Filed: 09/12/20 11:39> Activity on Discharge: As tolerated <PEGGY Smith - Last Filed: 09/12/20 11:39> As tolerated <Breezy Cortez MD - Last Filed: 09/12/20 13:03> Stand Alone Forms: Patient Portal Discharge page <PEGGY Smith - Last Filed: 09/12/20 11:39> Care Plan Goals: See below <PEGGY Smith - Last Filed: 09/12/20 11:39> Health Concerns: asthma exacerbation <PEGGY Smith - Last Filed: 09/12/20 11:39> Plan of Treatment: continue augmentin as previously prescribed continue prednisone taper as previously prescribed take cough medicine as needed call to schedule a follow up appointment with your pcp <PEGGY Smith - Last Filed: 09/12/20 11:39> Assessment: See discharge summary <PEGGY Smith - Last Filed: 09/12/20 11:39> Discharge Date/Time: 09/12/20 11:06 <PEGGY Smith - Last Filed: 09/12/20 11:39>
--- NOTE | 2020-09-12 11:07 | MHC.CM.PN ---
PATIENT IS DISCHARGED HOME WITH NO NEED FOR SERVICES. FAMILY TO TRANSPORT. RN AWARE OF PLAN
== END 2020-09-12 11:06 | disposition home or self-care (01) | DRG 141 ==
LOC: HO.ED 17:28 → HO.EDOVER 20:13 → HO.S3 20:53
PROVIDERS: Emergency Medicine; Physician Assistant Medical; Admitting Provider Internal Medicine; Emergency Provider Emergency Medicine Emergency Medical Services; PCP Internal Medicine; Visit Provider Family Medicine
DX: J45.31 Mild persistent asthma with (acute) exacerbation (principal); E83.42 Hypomagnesemia; E03.9 Hypothyroidism, unspecified; J01.90 Acute sinusitis, unspecified; D72.829 Elevated white blood cell count, unspecified; R42 Dizziness and giddiness; I10 Essential (primary) hypertension; Z20.822 Contact with and (suspected) exposure to COVID-19; Z79.52 Long term (current) use of systemic steroids; Z88.5 Allergy status to narcotic agent; Z79.890 Hormone replacement therapy; Z79.899 Other long term (current) drug therapy
CPT/HCPCS: 0241U; 36415; 71045; 80048; 80076; 83735; 84484; 85025; 93005; 94640; 99218; 99285; J1650; J2405; J2920; J2930; J3475

== ENCOUNTER 2020-09-16 07:54 | Outpatient (REF) | payer OTHER, SELFPAY ==
--- NOTE | ~2020-09-16 | PE_ITS ---
EXAMINATION: Fluorine-18 FDG PET/CT Scan CLINICAL INDICATION: Subsequent treatment management. Thyroid cancer. Status post left and right lobe thyroidectomy surgery 2005. Subsequent I-131 ablation with 159 mCi I-131 on 03/14/2006. PROCEDURE: 74 minutes following the intravenous administration of 18 mCi of fluorine 18 FDG, images from the base of the skull to the mid thighs were obtained using a combined PET/CT scanner with CT scan based attenuation correction. No oral contrast was administered. No intravenous contrast was administered. Transverse, coronal, sagittal, and volume reconstruction projections were obtained. The patient's blood glucose as determined by a finger stick, was 137 mg/dl immediately prior to injection. Total CT exam dose-length product 1173.74 mGy-cm * These CT images were obtained using dose optimization techniques as appropriate, variously including the following: Automated exposure control * Adjustment of mA and/or kV according to patient size (this includes techniques or standardized protocols for targeted exams where dose is matched to indication/reason for exam; i.e. extremities or head) * Use of iterative reconstruction technique COMPARISON: No previous PET/CT scan is available for comparison. History indicates prior FDG PET/CT scans in 2005 and 2008 but neither the images nor the reports of these studies are available for review., The clinical history indicating the most recent of these showed FDG avid lesions in the right neck. I-131 whole body scan dated 11/13/2019 is available for comparison. FINDINGS: NECK AND VISUALIZED HEAD: No foci of abnormal FDG activity are noted. The distribution of FDG activity is physiological. There is no cervical lymphadenopathy. The patient is status post total thyroidectomy with several metallic clips present in the thyroid bed bilaterally. THORAX: There are no foci of abnormal FDG activity. No pulmonary nodules are visualized. There is no pleural or pericardial fluid or pneumothorax. There is no mediastinal, supraclavicular, or axillary lymphadenopathy. ABDOMEN AND PELVIS: No foci of abnormal FDG activity are present within the abdomen or pelvis. There is mild diffuse FDG activity throughout the gastrointestinal tract without a suspicious focal component. There is diverticulosis without evidence of diverticulitis. The hollow viscera are otherwise unremarkable. The liver and spleen are unremarkable. The gallbladder has been resected and there are metallic surgical clips in the gallbladder bed. The kidneys, adrenal glands, and pancreas are unremarkable. There is a left-sided adnexal cyst that measures 6.6 x 5.9 cm in largest transverse dimensions, slightly larger than on the CT scan of the abdomen and pelvis dated 04/22/2020 when this measured 5.8 cm in largest transverse dimensions. This is markedly FDG photopenic. An IUD is in place. The pelvic organs are otherwise unremarkable. There is no retroperitoneal, mesenteric, pelvic or inguinal lymphadenopathy. A very small fat-containing periumbilical hernia is present. MUSCULOSKELETAL: No foci of abnormal FDG activity are present in the osseous structures. An L5-S1 fusion is in place with bilateral pedicle screws at L5 and S1 and associated vertical rods and a metallic L5-S1 disc prosthesis. There is no associated abnormal FDG activity. There are some degenerative changes in the spine, but no suspicious sclerotic or lytic foci are present. VASCULAR: Scattered vascular calcifications are present. PET/PET CT fusion whole body IMPRESSION: No abnormalities are present suspicious for metastatic or other malignant lesions. The patient is status post total thyroidectomy with no abnormalities in the thyroid bed region or cervical lymph nodes suspicious for recurrent or metastatic thyroid cancer.
== END 2020-09-16 07:55 | disposition home or self-care (01) ==
LOC: HO.PET 07:54
PROVIDERS: Visit Provider Internal Medicine
DX: Z13.89 Encounter for screening for other disorder (principal)

== ENCOUNTER 2020-10-29 19:57 | Emergency (ER) | payer OTHER, SELFPAY ==
--- NOTE | ~2020-10-29 | XR_ITS ---
EXAMINATION: XR SHOULDER, LEFT CLINICAL INFORMATION: Pain/injury COMPARISON: None TECHNIQUE: Three views of the left shoulder. FINDINGS: The bones and soft tissues are normal. No fracture. Glenohumeral and acromioclavicular alignment is anatomic with normal joint space. No abnormal soft tissue calcifications. XR/XR shoulder LT min 2V IMPRESSION: Normal left shoulder.
[2020-10-29 20:33] VITALS: BP 136/82; PULSE 84; RESP 16; TEMP 36.2; O2SAT 100; BMI 41.1
--- NOTE | 2020-10-29 21:00 | ED.EXTPRO ---
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 She did not take any medication she does but ice on it with no relief. She can move it but it is very painful with movement. Related Data Home Medications Medication Instructions Recorded Confirmed levothyroxine 100 mcg capsule 100 mcg PO DAILY 09/11/20 09/16/20 (Tirosint) lisinopril 30 mg tablet 1 tab PO DAILY 09/11/20 09/16/20 Previous Rx's Medication Instructions Recorded allopurinol 100 mg tablet 100 mg PO DAILY 90 Days #90 tab 06/25/20 pyridoxine (vitamin B6) 100 mg 100 mg PO DAILY 90 Days #90 tab 06/25/20 tablet albuterol sulfate 90 mcg/actuation 2 puff INHALATION Q6H PRN 30 Days 07/02/20 aerosol inhaler (ProAir HFA) #8.5 g meclizine 25 mg tablet 25 mg PO TID PRN 30 Days #90 tab 07/02/20 amoxicillin 875 mg-potassium 1 tab PO BID #20 tab 09/05/20 clavulanate 125 mg tablet (Augmentin) prednisone 20 mg tablet 20 mg PO .COMPLEX #18 tab 09/05/20 cholecalciferol (vitamin D3) 25 25 mcg PO DAILY 90 Days #90 tab 09/09/20 mcg (1,000 unit) tablet benzonatate 100 mg capsule 100 mg PO TID PRN 7 Days #21 cap 09/12/20 (Tesruel Abrams) diazepam 5 mg tablet (Valium) 10 mg PO ONCE #2 tab 09/15/20 hydrocodone 10 mg-chlorpheniramine 5 ml PO Q12H PRN 7 Days #70 ml 09/16/20 8 mg/5 mL oral susp extend.rel 12hr sumatriptan succinate 100 mg tablet 100 mg PO .COMPLEX PRN 30 Days #10 09/16/20 tab Tirosint 25 mcg capsule 25 mcg PO QAM 30 Days #30 cap NS 10/06/20 (levothyroxine) Tirosint 150 mcg capsule 150 mcg PO QAM #30 cap NS 10/13/20 (levothyroxine) tamsulosin 0.4 mg capsule 0.4 mg PO BEDTIME #90 cap 10/25/20 naproxen 500 mg tablet 500 mg PO BID PRN #30 tab 10/29/20 Allergies Allergy/AdvReac Type Severity Reaction Status Date / Time oxycodone [OXYCODONE] Allergy Intermediate RASH,SHAKES, Verified 10/29/20 20:38 shakiness, body shaking, tremors Review of Systems Review of Systems: Yes all other systems are reviewed and are negative [facility] Past Medical History 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 Lumbar disc herniation Migraine Morbid obesity with BMI of 40.0-44.9, adult Obesity Patellar fracture Pericardial effusion Postsurgical hypothyroidism Pure hypercholesterolemia Vertigo Vitamin D deficiency Surgical History History of ankle surgery History of back surgery History of bladder surgery History of section History of cholecystectomy History of pubovaginal sling History of thyroid surgery Hx of cystoscopy Hx of tubal ligation Tubal ligation status Family History Family History Daughter Von Willebrand disease Other Asthma Diabetes Emphysema of lung Family history of bladder cancer Family history of breast cancer Family history of lung cancer Family history of prostate cancer Social History Social History Household Members: Family and Children Housing: House Do you presently have visiting nurse or other home services: No Alcohol intake: never Patient Tobacco Use Status: Never used Tobacco Advance Directives: No Advance Directives Information Provided: Yes Patient : No service: No Current occupational status: employed Physical Exam Vital Signs: Vital Signs: Last Vital Signs Temp 97.1 F 10/29/20 20:33 Pulse 84 10/29/20 20:33 Resp 16 10/29/20 20:33 BP 136/82 10/29/20 20:33 Pulse Ox 100 10/29/20 20:33 Body Mass Index 41.1 Const: General: cooperative, healthy appearing, comfortable, no acute distress and well developed Orientation/consciousness: patient oriented x3 Limitations: no limitations HENMT: Head: Yes normal to inspection Eyes: General: appearance normal, both eyes and all related structures Neck: Neck: Yes normal visual inspection and Yes full ROM Resp: Effort & Inspection: normal respiratory effort and able to speak in complete sentences Skin: General skin exam: no rashes or lesions noted Neuro: General: patient oriented x3 Extrem: General: Yes normal to inspection Left upper extremity: normal to inspection; No ROM limited (Patient cannot adduct without pain, can't extend reach small of back 2/2 pn) MDM - Extremity (Nontraumatic) Imaging Data Left shoulder x-ray: Attestation: I personally reviewed and interpreted this imaging study as follows: Radiologist's impression: [place] [address] XRay Report Signed Patient: Alicia Jenkins MR#: [id number] : 1975 Acct:[id number] Age/Sex: 45 / F ADM Date: 10/29/20 Loc: HO.ED Attending Dr: Ordering Physician: Generic ED Physician Date of Service: 10/29/20 Procedure(s): XR shoulder LT min 2V Accession Number(s): [id number] cc: Generic ED Physician~ EXAMINATION: XR SHOULDER, LEFT CLINICAL INFORMATION: Pain/injury? COMPARISON: None? TECHNIQUE: Three views of the left shoulder. FINDINGS: The bones and soft tissues are normal. No fracture. Glenohumeral and acromioclavicular alignment is anatomic with normal joint space. No abnormal soft tissue calcifications.? XR/XR shoulder LT min 2V IMPRESSION: Normal left shoulder. Dictated By: ELIE GOOD MD Signed By: <Electronically signed by ELIE GOOD MD in OV> 10/29/202103 DD/ 44 TD/TT:? Level Vial Inspector And Tester: ADIEL Discharge Plan Discharge Clinical Impression: Shoulder sprain Qualifiers: Encounter type: initial encounter Shoulder sprain type: unspecified sprain Laterality: left Qualified Code(s): S43.402A - Unspecified sprain of left shoulder joint, initial encounter Patient Disposition: Home, Self-Care Instructions: Musculoskeletal Pain (ED) Additional Instructions: Please rest your left shoulder, you may use ice and naproxen as needed for pain. If the pain continues and is not getting better over the next 7-10 days, please follow-up with your primary care doctor as you may need physical therapy. Prescriptions: New naproxen 500 mg tablet 500 mg PO BID PRN (Reason: pain) Qty: 30 RF: 0 No Action cholecalciferol (vitamin D3) 25 mcg (1,000 unit) tablet 25 mcg PO DAILY 90 Days Qty: 90 RF: 3 diazepam [Valium] 5 mg tablet 10 mg PO ONCE Qty: 2 RF: 0 levothyroxine [Tirosint] 25 mcg capsule 25 mcg PO QAM 30 Days Qty: 30 RF: 11 levothyroxine [Tirosint] 150 mcg capsule 150 mcg PO QAM Qty: 30 RF: 11 tamsulosin 0.4 mg capsule 0.4 mg PO BEDTIME Qty: 90 RF: 1 lisinopril 30 mg tablet 1 tab PO DAILY RF: 0 levothyroxine [Tirosint] 100 mcg capsule 100 mcg PO DAILY RF: 0 benzonatate [Tessalon Perles] 100 mg capsule 100 mg PO TID PRN (Reason: cough) 7 Days Qty: 21 RF: 0 albuterol sulfate [ProAir HFA] 90 mcg/actuation HFA aerosol inhaler 2 puff inhalation Q6H PRN (Reason: shortness of breath or wheezing) 30 Days Qty: 8.5 RF: 3 meclizine 25 mg tablet 25 mg PO TID PRN (Reason: dizziness) 30 Days Qty: 90 RF: 1 hydrocodone-chlorpheniramine 10-8 mg/5 mL suspension,extended rel 12 hr 5 ml PO Q12H PRN (Reason: cold symptoms) 7 Days Qty: 70 RF: 0 sumatriptan succinate 100 mg tablet 100 mg PO .COMPLEX PRN (Reason: migraine headache) 30 Days Qty: 10 RF: 2 prednisone 20 mg tablet 20 mg PO .COMPLEX Qty: 18 RF: 0 amoxicillin-pot clavulanate [Augmentin] 875-125 mg tablet 1 tab PO BID Qty: 20 RF: 0 allopurinol 100 mg tablet 100 mg PO DAILY 90 Days Qty: 90 RF: 1 pyridoxine (vitamin B6) 100 mg tablet 100 mg PO DAILY 90 Days Qty: 90 RF: 1 Stand Alone Forms: Work/School Release Interventions: ED Discharge Assessment Last Done: 10/29/20 21:37
== END 2020-10-29 21:44 | disposition home or self-care (01) ==
PROVIDERS: Emergency Provider Emergency Medicine Emergency Medical Services; PCP Internal Medicine
DX: S43.402A Unspecified sprain of left shoulder joint, initial encounter (principal); X50.0XXA Overexertion from strenuous movement or load, initial encounter; I10 Essential (primary) hypertension; E66.01 Morbid (severe) obesity due to excess calories; Z68.41 Body mass index [BMI] 40.0-44.9, adult; Y93.F2 Activity, caregiving, lifting; Y92.9 Unspecified place or not applicable; Y99.0 Civilian activity done for income or pay
CPT/HCPCS: 73030; 99283

== ENCOUNTER → 2020-11-05 13:43 | Outpatient (BNVA) | payer OTHER, SELFPAY | PROVIDERS: PCP Internal Medicine; Visit Provider Internal Medicine ==

== ENCOUNTER 2020-11-19 10:40 | Outpatient (REF) | payer OTHER, SELFPAY ==
[2020-11-19 14:54] LABS: Free T4 (Free Thyroxine) 1.17 ng/dL (0.71-1.85); Thyroid Stimulating Hormone 12.04 uIU/mL (0.32-4.0); Vitamin D 25-OH Total 29.9 ng/mL (>30)
[2020-11-20 18:22] LABS: Thyroglobulin Antibodies <1 IU/mL (< or = 1)
[2020-11-21 07:12] LABS: Thyroglobulin 6.9 ng/mL
== END 2020-11-19 10:41 | disposition home or self-care (01) ==
LOC: HO.10HDL 10:40
PROVIDERS: Visit Provider Internal Medicine
DX: C73 Malignant neoplasm of thyroid gland (principal); E55.9 Vitamin D deficiency, unspecified
CPT/HCPCS: 36415; 82306; 84432; 84439; 84443; 86800

== ENCOUNTER 2021-03-05 10:24 | Outpatient (REF) | payer OTHER, SELFPAY ==
[2021-03-05 13:47] LABS: MANUAL DIFF FLAG NO
[2021-03-05 13:53] LABS: Basophils Absolute Auto 0.1 X10*3/uL (0.0-0.2); Basophils Percent Auto 0.6 % (0-2); Eosinophils Absolute Auto 0.1 X10*3/uL (0.0-0.4); Eosinophils Percent Auto 1.5 % (0-4); Hematocrit 40.4 % (37.0-47.0); Hemoglobin 13.7 g/dl (12.0-16.0); Imm Gran Abs Auto 0.05 X10*3/uL (0.00-0.03); Imm Gran Pct Auto 0.6 % (0.0-0.4); Lymphocytes Percent Auto 25.1 % (20-40); Mean Corpuscular HGB Conc 33.9 g/dl (31.0-35.0); Mean Corpuscular Hemoglobin 31.2 pg (27.0-33.0); Monocytes Absolute Auto 0.6 X10*3/uL (0.1-1.2); Monocytes Percent Auto 7.9 % (2-11); Neutrophils Percent Auto 64.3 % (45-73); Platelet Count 347 X10*3/uL (160-400); Red Blood Count 4.39 X10*6/uL (4.20-5.50); Red Cell Distribution Width 12.2 % (11.0-16.0); White Blood Count 7.8 X10*3/uL (4.8-10.8)
[2021-03-05 14:27] LABS: Estimated Average Glucose 117 mg/dL; Hemoglobin A1C 137.9154 umol/L; Hemoglobin A1c % 5.7 %
[2021-03-05 14:40] LABS: Alanine Aminotransferase 31 U/L (0-31); Albumin Level 4.4 g/dL (3.5-5.0); Alkaline Phosphatase 75 U/L (39-117); Anion Gap 11 (12-20); Aspartate Amino Transferase 24 U/L (5-31); Bilirubin Total 0.6 mg/dL (0.0-1.0); Blood Urea Nitrogen 11 mg/dL (9-16); Calcium 9.4 mg/dL (8.4-10.2); Carbon Dioxide 30 mmol/L (22-29); Chloride 102 mmol/L (96-108); Estimated Glomerular Filt Rate > 60; Glucose Random 91 mg/dL (60-115); Potassium 4.1 mmol/L (3.3-5.1); Sodium 139 mmol/L (135-145); Total Protein 6.9 g/dL (6.5-8.0)
[2021-03-05 15:04] LABS: Free T4 (Free Thyroxine) 2.79 ng/dL (0.71-1.85); Thyroid Stimulating Hormone 3.65 uIU/mL (0.32-4.0)
[2021-03-07 01:57] LABS: Thyroglobulin 2.2 ng/mL; Thyroglobulin Antibodies <1 IU/mL (< or = 1)
== END 2021-03-05 10:25 | disposition home or self-care (01) ==
LOC: HO.10HDL 10:24
PROVIDERS: Absent Provider Internal Medicine; Visit Provider Internal Medicine
DX: R73.01 Impaired fasting glucose (principal); Z85.850 Personal history of malignant neoplasm of thyroid
CPT/HCPCS: 36415; 80053; 83036; 84432; 84439; 84443; 85025; 86800

== ENCOUNTER 2021-05-11 12:35 | Outpatient (REF) | payer OTHER, SELFPAY ==
[2021-05-11 15:15] LABS: Free T4 (Free Thyroxine) 0.76 ng/dL (0.71-1.85); Thyroid Stimulating Hormone 28.33 uIU/mL (0.32-4.0)
[2021-05-13 05:16] LABS: Thyroglobulin 6.2 ng/mL; Thyroglobulin Antibodies <1 IU/mL (< or = 1)
== END 2021-05-11 12:36 | disposition home or self-care (01) ==
LOC: HO.LAB 12:35
PROVIDERS: PCP Internal Medicine; Visit Provider Internal Medicine
DX: E89.0 Postprocedural hypothyroidism (principal); C73 Malignant neoplasm of thyroid gland; E55.9 Vitamin D deficiency, unspecified; N83.209 Unspecified ovarian cyst, unspecified side; Z85.850 Personal history of malignant neoplasm of thyroid
CPT/HCPCS: 36415; 84432; 84439; 84443; 86800; 99212

== ENCOUNTER 2021-10-14 07:18 | Outpatient (REF) | payer OTHER, SELFPAY ==
[2021-10-14 10:32] LABS: MANUAL DIFF FLAG NO
[2021-10-14 10:36] LABS: Basophils Absolute Auto 0.1 X10*3/uL (0.0-0.2); Basophils Percent Auto 0.8 % (0-2); Eosinophils Absolute Auto 0.1 X10*3/uL (0.0-0.4); Eosinophils Percent Auto 1.6 % (0-4); Hematocrit 39.9 % (37.0-47.0); Hemoglobin 13.5 g/dl (12.0-16.0); Imm Gran Abs Auto 0.05 X10*3/uL (0.00-0.03); Imm Gran Pct Auto 0.6 % (0.0-0.4); Lymphocytes Absolute Auto 2.1 X10*3/uL (1.2-4.9); Lymphocytes Percent Auto 26.7 % (20-40); Mean Corpuscular HGB Conc 33.8 g/dl (31.0-35.0); Mean Corpuscular Volume 91.7 fL (80.0-98.0); Mean Platelet Volume 10.2 fL (9.4-12.3); Monocytes Absolute Auto 0.6 X10*3/uL (0.1-1.2); Monocytes Percent Auto 7.3 % (2-11); Platelet Count 333 X10*3/uL (160-400); Red Blood Count 4.35 X10*6/uL (4.20-5.50); Red Cell Distribution Width 11.7 % (11.0-16.0)
[2021-10-14 10:46] LABS: Estimated Average Glucose 123 mg/dL; Hemoglobin A1c % 5.9 %
[2021-10-14 10:49] LABS: Alanine Aminotransferase 50 U/L (0-31); Albumin Level 4.2 g/dL (3.5-5.0); Alkaline Phosphatase 73 U/L (39-117); Anion Gap 12 (12-20); Aspartate Amino Transferase 31 U/L (5-31); Bilirubin Total 0.3 mg/dL (0.0-1.0); Blood Urea Nitrogen 13 mg/dL (9-16); Calcium 8.8 mg/dL (8.4-10.2); Carbon Dioxide 26 mmol/L (22-29); Chloride 103 mmol/L (96-108); Cholesterol 198 mg/dL; Estimated Glomerular Filt Rate > 60; Glucose Random 126 mg/dL (60-115); HDL Cholesterol 35 mg/dL; LDL Cholesterol Calculated 136 mg/dl; Potassium 4.2 mmol/L (3.3-5.1); Sodium 137 mmol/L (135-145); Total Protein 6.8 g/dL (6.5-8.0); Triglycerides 137 mg/dL
[2021-10-14 11:15] LABS: Free T4 (Free Thyroxine) 1.77 ng/dL (0.71-1.85); Thyroid Stimulating Hormone 0.08 uIU/mL (0.32-4.0)
[2021-10-14 11:59] LABS: Folate 6.8 ng/mL (> or = 4.0); Vitamin B12 392 pg/mL (200-900)
[2021-10-16 13:07] LABS: Thyroglobulin Antibodies <1 IU/mL (< or = 1)
== END 2021-10-14 07:19 | disposition home or self-care (01) ==
LOC: HO.10HDL 07:18
PROVIDERS: PCP Internal Medicine; Visit Provider Internal Medicine
DX: E89.0 Postprocedural hypothyroidism (principal); R73.01 Impaired fasting glucose; I10 Essential (primary) hypertension; N83.209 Unspecified ovarian cyst, unspecified side; E55.9 Vitamin D deficiency, unspecified; Z79.899 Other long term (current) drug therapy; Z85.850 Personal history of malignant neoplasm of thyroid; E78.00 Pure hypercholesterolemia, unspecified
CPT/HCPCS: 36415; 80053; 80061; 82306; 82607; 82746; 83036; 84439; 84443; 85025; 86800; 99212

== ENCOUNTER 2021-11-26 08:16 | Outpatient (REF) | payer OTHER, SELFPAY ==
--- NOTE | ~2021-11-26 | XR_ITS ---
EXAMINATION: SR KNEES, STANDING AP SR KNEE, LEFT CLINICAL INFORMATION: Knee pain. History thyroid cancer. COMPARISON: PET/CT 09/16/2020. TECHNIQUE: Standing AP view of both knees is performed. The left knee is also imaged in lateral and axial patella views. FINDINGS: Right: Normal bony mineralization. No fracture or destructive process. No joint narrowing or subchondral sclerosis. No erosive change. Mild chondrocalcinosis medial lateral menisci. Left: Normal bony mineralization. No fracture or dislocation or destructive process. There is mild thickening suprapatellar bursa. There is spurring at the quadriceps insertion patella. Hoffa's fat pad appears normal. There is mild narrowing medial knee joint compartment. There is moderate chondrocalcinosis medial lateral menisci. No erosive change. No lateralization or tilting patella. XR/XR knee standing BI IMPRESSION: Right: -Mild chondrocalcinosis menisci. No joint narrowing or erosive change. Left: -Narrowing medial knee joint compartment. Moderate chondrocalcinosis menisci. -Borderline suprapatellar effusion. -Spurring quadriceps insertion patella.
--- NOTE | ~2021-11-26 | XR_ITS ---
EXAMINATION: SR KNEES, STANDING AP SR KNEE, LEFT CLINICAL INFORMATION: Knee pain. History thyroid cancer. COMPARISON: PET/CT 09/16/2020. TECHNIQUE: Standing AP view of both knees is performed. The left knee is also imaged in lateral and axial patella views. FINDINGS: Right: Normal bony mineralization. No fracture or destructive process. No joint narrowing or subchondral sclerosis. No erosive change. Mild chondrocalcinosis medial lateral menisci. Left: Normal bony mineralization. No fracture or dislocation or destructive process. There is mild thickening suprapatellar bursa. There is spurring at the quadriceps insertion patella. Hoffa's fat pad appears normal. There is mild narrowing medial knee joint compartment. There is moderate chondrocalcinosis medial lateral menisci. No erosive change. No lateralization or tilting patella. XR/XR knee LT 2V IMPRESSION: Right: -Mild chondrocalcinosis menisci. No joint narrowing or erosive change. Left: -Narrowing medial knee joint compartment. Moderate chondrocalcinosis menisci. -Borderline suprapatellar effusion. -Spurring quadriceps insertion patella.
== END 2021-11-26 08:17 | disposition home or self-care (01) ==
LOC: HO.HOSX 08:16
PROVIDERS: Visit Provider Physician Assistant
DX: M17.12 Unilateral primary osteoarthritis, left knee (principal)
CPT/HCPCS: 20610; 73560; 73565; 99202; J1040

== ENCOUNTER 2022-01-05 13:32 | Outpatient (REF) | payer OTHER, SELFPAY ==
--- NOTE | ~2022-01-05 | CT_ITS ---
EXAMINATION: CT HEAD WITHOUT CONTRAST CLINICAL INFORMATION: Headache COMPARISON: None TECHNIQUE: Contiguous axial imaging was performed from the skull base to vertex without intravenous administration of contrast. This CT examination was performed using dose optimization techniques as appropriate, variously including the following: *Automated exposure control *Adjustment of mA and/or kV according to patient size (this includes techniques or standardized protocols for targeted exams where dose is matched to indication/reason for exam; i.e. extremities or head) *Use of iterative reconstruction technique DLP: 661 mGy-cm FINDINGS: There is no acute intra-axial, extra-axial bleed, masses, collection midline shift. There is no acute infarction in evolution. The velasquez to white matter differentiation is maintained normal. Bone windows reveal no calvarial abnormality. Bilateral paranasal sinuses and mastoid air cells are well-aerated. There is no scalp soft tissue abnormality. CT/CT head/brain wo IV con IMPRESSION: No acute intracranial process seen.
== END 2022-01-05 13:33 | disposition home or self-care (01) ==
LOC: HO.CT 13:32
PROVIDERS: PCP Internal Medicine; Visit Provider Internal Medicine
DX: R51.9 Headache, unspecified (principal)
CPT/HCPCS: 70450

== ENCOUNTER → 2022-01-07 09:20 | Outpatient (BNVA) | payer OTHER, SELFPAY | PROVIDERS: PCP Internal Medicine; Visit Provider Physician Assistant | DX: M17.12 Unilateral primary osteoarthritis, left knee (principal) | CPT/HCPCS: 99212 ==

== ENCOUNTER 2022-02-03 10:00 | Outpatient (RCR) | payer OTHER, SELFPAY ==
--- NOTE | 2022-01-13 17:12 | MHC.PT.EP ---
[facility] Office [place] Office [place] Office [address] Ezio Aldana [address] [phone] F: [phone] F: [phone] F: [phone] F: [phone] Physical Therapy Plan of Care Date of Evaluation: Date of Surgery: Diagnosis: L knee OA, questionable meniscus injury Assessment: Patient is 46 y.o female who presents to PT with dx of L knee pain and OA. She injured her knee at work (bend and twist with pop), continues with pain, buckling, antalgic gait, very limited ROM, very weak quadriceps muscles, impaired functional mobility. Due to nature of injury and severity of symptoms 3 months after injury I recommend MRI to confirm or refute meniscal tear vs ACL injury. She will benefit from skilled PT to regain mobility and strength, improve gait and restore functional mobility. Frequency and Duration: The patient will be seen 2x/week for 4 weeks Short Term Goals: 2 weeks Patient presents with increased L knee extension 0 degrees to normalize gait pattern. Patient presents with increased L knee flexion AROM 95 degrees to be able to perform sit to stand/stand to sit normally. 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 Patient presents with increased L knee extension strength 4/5 to be able to perform reciprocal stairs with railings. Treatment Plan: Modalities to reduce pain, spasms and effusion. Manual therapy to restore motion and function. Therapeutic exercise to improve strength and flexibility. Neuromuscular re-education for posture and balance. Therapeutic activities to return to functional activities of daily living. Electronically signed by: Yodit Weller, PT, DPT Please sign and return to therapist. Thank you for your referral.
--- NOTE | 2022-03-10 14:24 | MHC.PT.DC ---
[facility] [place] [facility] [place] [facility] [place] [facility] [address] Ezio Aldana [address] [phone] F: [phone] F: [phone] F: [phone] F: [phone] Physical Therapy Discharge Report Diagnosis: L knee OA, questionable meniscus injury Date of Surgery: Date of Evaluation: 01/13/22 Date of Discharge: 03/10/22 Treatments to Date: 4 Cancellations to Date: No Shows to Date: Discharge Status: Recommend MD Follow-up Discharge Summary: On her last PT session on 02/03/22: Pt with significantly limited tolerance for therex today d/t increased pain throughout. Ice x 10 mins in supine after therex for pain control. Continued with US and taping today as pt notes benefit. She had visit to orthopedic surgeon 02/22/22 where she is referred for MRI of her L knee as she was not progressing with PT. Unclear when she is to resume PT, is discharged at this time since it has been over 30 days since she has attended PT. Electronically signed by: Yodit Weller, PT, DPT Please sign and return to therapist. Thank you for your referral.
== END 2022-03-10 14:25 | disposition home or self-care (01) ==
LOC: HO.PT 10:00
PROVIDERS: PCP Internal Medicine; Visit Provider Physician Assistant
DX: M17.12 Unilateral primary osteoarthritis, left knee (principal)
CPT/HCPCS: 97035; 97110; 97140; 97162

== ENCOUNTER 2022-02-13 14:43 | Emergency (ER) | payer OTHER, SELFPAY ==
--- NOTE | ~2022-02-13 | CT_ITS ---
EXAMINATION: CT ABDOMEN AND PELVIS WITHOUT CONTRAST CLINICAL INFORMATION: Right flank pain. History of stones. COMPARISON: CT abdomen pelvis 04/22/2020 TECHNIQUE: Multidetector volumetric imaging was performed from the superior aspect of the liver through the pubic symphysis. Sagittal and coronal reformatted images were obtained on the technologist's workstation. This CT examination was performed using dose optimization techniques as appropriate, variously including the following: *Automated exposure control *Adjustment of mA and/or kV according to patient size (this includes techniques or standardized protocols for targeted exams where dose is matched to indication/reason for exam; i.e. extremities or head) *Use of iterative reconstruction technique DLP: 1100 mGy-cm FINDINGS: LUNG BASES: The visualized lung bases are unremarkable. LIVER, GALLBLADDER, AND BILIARY TREE: Diffuse low attenuation of liver parenchyma due to fatty change. Liver is enlarged. Right lobe of liver measures 23 cm superior inferior. There is no focal liver lesion. There is no intrahepatic bile duct dilatation. Status post cholecystectomy PANCREAS: Unremarkable. SPLEEN: Unremarkable. ADRENAL GLANDS: Unremarkable. KIDNEYS AND URETERS: Right kidney: Moderate hydronephrosis of right kidney with distention renal pelvis calyces and right-sided hydroureter. There is a 3 mm mm stone at the right ureterovesical junction. There is 735/99 series 4. There is no additional 2 mm stone in the distal left ureter image 718. There is a 3 mm stone at the lower pole right kidney and 2 mm stone mid pole right kidney. Left kidney: No hydronephrosis. No hydroureter. No ureteral stone. There are a few scattered 1 to 2 mm size stone in the left kidney. BLADDER: Unremarkable. GASTROINTESTINAL TRACT: There are scattered diverticula of the sigmoid colon. There is no diverticulitis. There is no bowel wall thickening /edema. There is no bowel obstruction. There is a moderate to large volume of stool in the colon. The appendix is normal . The small bowel loops are unremarkable. The stomach is normal. There is no hiatal hernia. ABDOMINAL WALL: No significant hernia is appreciated. LYMPH NODES: Normal. VASCULAR: Unremarkable. PELVIC VISCERA: Uterus is anteverted. IUD in the endometrial cavity. 7.5 cm right adnexal cyst. Previously seen left adnexal cyst on CAT scan 09/20/2020 has reduced in size now measuring 1.5 cm. OSSEOUS STRUCTURES: Multilevel degenerative spondylosis spine. Status post fusion with transpedicular screws at lumbosacral junction. CT/CT abdomen pelvis wo IV con IMPRESSION: 1. Moderate hydronephrosis of right kidney due to an obstructing 3 mm stone at the right ureterovesical junction. There is an additional 2 mm stone in the distal right ureter. 2. Bilateral nonobstructive renal stones. 3. Hepatomegaly with diffuse fatty change of liver. 4. 7.5 cm right adnexal cyst. 5. IUD in endometrial cavity. Fleischner guidelines were followed.
[2022-02-13 14:49] VITALS: BP 100/59; BP 160/90; PULSE 84; PULSE 94; RESP 20; TEMP 36.5; O2SAT 95; O2SAT 96; BMI 44.4
--- OUTSIDE RECORDS SUMMARY | 2022-02-13 15:26 | XMS_ITS | Continuity of Care Document ---
:1975 Author Organization [facility] Address [address] [place] [id number]- Care Team Providers Name Role Phone Po Tamela CASTANEDA Primary Care Physician Encounter [facility] Date(s): 08/03/19 - 08/03/[address] [address]- [facility] Discharge Disposition: A-D/C Home Attending Physician: Danny Hall DO Admitting Physician: Danny Hall DO Referring Physician: Not on Staff, Referring MD Allergies, Adverse Reactions, Alerts Substance Reaction Severity Status oxycodone body shakes Active Immunizations Given and Recorded Vaccine Date Status Refusal Reason pneumococcal 23-valent vaccine 12/08/13 Given influenza virus vaccine, inactivated 02/10/10 Given influenza virus vaccine, inactivated 01/17/07 Given Influenza Virus Vaccine (oldterm) 01/17/07 Given Pneumococcal Vaccine (oldterm)1 12/14/06 Given Not Given Vaccine Date Status Refusal Reason influenza virus vaccine, inactivated 03/08/17 Not Given Patient Refuses 1Result Comment: lot [id number] exp. [id number] Medications Advair Diskus 250 mcg-50 mcg inhalation powder 1, puffs, Inhalation, 2 times a day, PRN, # 1 cartridge, Refills 0, Maintenance, 05/16/18 10:47:44 EST, Powder Start Date: 05/16/18 Status: Orderedalbuterol 90 mcg/inh inhalation aerosol 2, puffs, 3 times a day, Scheduled / PRN, 0, 0, 12/17/05 14:25:28, as needed for wheezing, Print DEANumber, 68 Start Date: 12/17/05 Status: OrderedFioricet Tablet 1 tablet, By Mouth, Every 4 hours, PRN Headache, 0 Refills, Maintenance, 05/16/18 10:50:55 EST, Tablet Start Date: 05/16/18 Status: Orderedlevothyroxine 0.2 mg oral tablet 2.5 tablets, By Mouth, Daily in AM, Takes this dose on Tuesday and Tuesday only., # 60 tablet, 0 Refills, Maintenance, 05/16/18 10:49:49 EST, Tablet Start Date: 05/16/18 Status: Orderedlisinopril 10 mg oral tablet 20 mg, 2, tablet, By Mouth, Daily in AM, # 30 tablet, Refills 0, Maintenance, 05/16/18 10:47:26 EST Start Date: 05/16/18 Status: OrderedMirena 52 mg intrauteral device 1 each = 52 mg, Intrauterine, Once, Lot #[id number] exp 11/09, # 1 each, 1 Refills, Soft Stop Start Date: 05/05/12 Status: OrderedTirosint 100 mcg (0.1 mg) oral capsule 1 capsule = 100 mcg, By Mouth, Daily, 0 Refills, Maintenance, 12/06/18 10:21:14 EDT Start Date: 12/06/18 Status: Ordered Problem List Condition Effective Dates Status Health Status Informant Hypertension(Confirmed) Active 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 Mary Wallace of [place] [id number] 11/2005. s/p thyroidectomy 2006 (total 4.5 cm) and I131 ablation (159 mCi). Vital Signs Most recent to oldest [Reference Range]: 1 Oxygen Saturation [94-100 %] 98 % (08/03/19 8:51 AM) Pulse Rate [55-90 bpm] 82 bpm (08/03/19 8:51 AM) Blood Pressure [90-138/55-84 mm Hg] 142/92 mm Hg *H* (08/03/19 8:51 AM) Respiratory Rate [16-30 br/min] 16 br/min (08/03/19 8:51 AM) Temperature [96.8-100.4 DegF] 97.8 DegF (08/03/19 8:51 AM) Social History Social History Type Response Smoking Status Never smoker entered on: 03/25/14 Sex
--- OUTSIDE RECORDS SUMMARY | 2022-02-13 15:26 | XMS_ITS | Continuity of Care Document ---
:1975 Author Organization [facility] Address [address] [place] [id number]- Care Team Providers Name Role Phone Po Tamela CASTANEDA Primary Care Physician Encounter [facility] Date(s): 11/12/19 - 11/13/[address] [address]- [facility] Discharge Disposition: A-D/C Home Attending Physician: Faustino Day MD Admitting Physician: Faustino Day MD Referring Physician: Faustino Day MD Allergies, Adverse Reactions, Alerts Substance Reaction [...] Patient Refuses 1Result Comment: lot [id number] exp. [id number] Medications Advair Diskus 250 mcg-50 mcg inhalation powder 1, puffs, Inhalation, 2 times a day, PRN, # 1 cartridge, Refills 0, Maintenance, 05/16/18 10:47:44 EST, Powder Start Date: 05/16/18 Status: Orderedalbuterol 90 mcg/inh inhalation aerosol 2, puffs, 3 times a day, Scheduled / PRN, 0, 0, 12/17/05 14:25:28, as needed for wheezing, Print DEANumber, 68 Start Date: 12/17/05 Status: OrderedDilaudid 2 mg oral tablet 1 tablet = 2 mg, By Mouth, Every 4 hours, PRN for pain, # 30 tablet, 0 Refills, Maintenance, 11/13/19 6:55:00 EDT, Tablet, Partial fill upon patient request Start Date: 11/13/19 Status: OrderedEcotrin 325 mg oral delayed release tablet 1 tablet = 325 mg, By Mouth, Daily, # 30 tablet, 0 Refills, Maintenance, 11/13/19 6:55:00 EDT, EC Tablet Start Date: 11/13/19 Status: Orderedlisinopril 10 mg oral tablet 30 mg, By Mouth, Daily in AM, # 30 tablet, Refills 0, Maintenance, 05/16/18 10:47:26 EST Start Date: 05/16/18 Status: OrderedMirena 52 mg intrauteral device 1 each = 52 mg, Intrauterine, Once, Lot #[id number] exp 11/09, # 1 each, 1 Refills, Soft Stop Start Date: 05/05/12 Status: OrderedTirosint 100 mcg (0.1 mg) oral capsule = 275 mcg, By Mouth, Daily, 0 Refills, Maintenance, 12/06/18 10:21:14 EDT Start Date: 12/06/18 Status: OrderedTylenol Extra Strength 500 mg oral tablet 2 tablet = 1,000 mg, By Mouth, 3 times a day, PRN as needed for pain, # 90 tablet, 0 Refills, Maintenance, 11/13/19 6:55:00 EDT, Tablet Start Date: 11/13/19 Status: OrderedVitamin D3 5000 intl units oral tablet 1 tablet = 5,000 International_Units, By Mouth, Daily, # 30 tablet, 0 Refills, Maintenance, 206:55:00 EDT, Tablet Start Date: 11/13/19 Status: Ordered Problem List Condition Effective Dates Status Health Status Informant Hypertension(Confirmed) Active 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 Mary Wallace of [place] [id number] 11/2005. s/p thyroidectomy 2006 (total 4.5 cm) and I131 ablation (159 mCi). Vital Signs Most recent to oldest 1 2 3 [Reference Range]: Height 157.48 cm 157.48 cm 157.48 cm (11/13/19 11:14 AM) (11/13/19 7:51 AM) (11/12/19 11 :29 PM) Weight 104 kg 102.27 kg (11/12/19 8:11 AM) (11/07/19 10:44 AM) Oxygen Saturation [94-100 98 % 99 % 98 % %] (11/13/19 11:14 AM) (11/13/19 7:51 AM) (11/13/19 4: 00 AM) Pulse Rate [55-90 bpm] 70 bpm 72 bpm 65 bpm (11/13/19 11:14 AM) (11/13/19 7:51 AM) (11/13/19 4: 00 AM) Body Mass Index 41.94 41.24 [18.5-24.99] *>HHI* *>HHI* (11/12/19 8:11 AM) (11/07/19 10:44 AM) Blood Pressure 105/60 mm Hg 119/63 mm Hg 119/63 mm Hg [90-138/55-84 mm Hg] (11/13/19 11:14 AM) (11/13/19 7:56 AM) ( 7:51 AM) Respiratory Rate [16-30 18 br/min 18 br/min 18 br/mi n br/min] (11/13/19 11:31 AM) (11/13/19 11:14 AM) (11/13/19 1 0:48 AM) Temperature [96.8-100.4 97.8 DegF 98.1 DegF 98.1 Deg F DegF] (11/13/19 11:14 AM) (11/13/19 7:51 AM) (11/13/19 4: 00 AM) Liters per Minute 5 L/min 5 L/min 5 L/min (11/12/19 12:30 PM) (11/12/19 12:15 PM) (11/12/19 1 1:30 AM) Mode of Delivery (Oxygen) Room air Room air Room a ir (11/13/19 11:14 AM) (11/13/19 7:51 AM) (11/13/19 4: 00 AM) Blood pressure sites Arm, right Arm, right Arm, right (11/13/19 11:14 AM) (11/13/19 7:51 AM) (11/13/19 4: 00 AM) Temperature Route Oral Oral Oral (11/13/19 11:14 AM) (11/13/19 7:51 AM) (11/12/19 11 :29 PM) Dry Weight 104 kg 102.27 kg (11/12/19 8:11 AM) (11/07/19 10:44 AM) Weight Obtained Via Standing scale Patient/family stated (11/12/19 8:11 AM) (11/07/19 10:44 AM) Dry Weight Obtained Via Standing scale Patient/family stated (11/12/19 8:11 AM) (11/07/19 10:44 AM) Social History Social History Type Response Smoking Status Never smoker entered on: 03/25/14 Sex
--- OUTSIDE RECORDS SUMMARY | 2022-02-13 15:26 | XMS_ITS | Continuity of Care Document ---
:1975 Author Organization [facility] Address [address] [place] [address]- Care Team Providers Name Role Phone Po Tamela CASTANEDA Primary Care Physician Encounter [facility] Date(s): 06/03/19 - 06/03/[address] [address]- [facility] Encounter Diagnosis Parotiditis (Final) - 06/03/19 Discharge Disposition: A-D/C Home Attending Physician: Lele Kenyon MD Admitting Physician: Lele Kenyon MD Referring Physician: Not on Staff, Referring MD [...] Patient Refuses 1Result Comment: lot [id number] exp. [id number] Medications Advair Diskus 250 mcg-50 mcg inhalation powder 1, puffs, Inhalation, 2 times a day, PRN, # 1 cartridge, Refills 0, Maintenance, 05/16/18 10:47:44 EST, Powder Start Date: 05/16/18 Status: Orderedalbuterol 90 mcg/inh inhalation aerosol 2, puffs, 3 times a day, Scheduled / PRN, 0, 0, 12/17/05 14:25:28, as needed for wheezing, Print Ronak, 70 Start Date: 12/17/05 Status: OrderedAugmentin 875 mg-125 mg oral tablet 1 tablet, By Mouth, Every 12 hours, for 10 days, # 20 tablet, 0 Refills, Acute 06/13/19 15:01:00 EDT, 06/03/19 15:01:00 EDT, Tablet, [facility] #[id number], 155, cm, 12/06/18 10:14:00 EDT, Height, 98, kg, 12/06/18 10:14:00 EDT, Dry Weight Start Date: 06/03/19 Stop Date: 06/13/19 Status: OrderedFioricet Tablet 1 tablet, By Mouth, [...] each = 52 mg, Intrauterine, Once, Lot #[id number] exp 11/09, # 1 each, 1 Refills, [...] carcinoma(Confirmed)1, [address] Mary Wallace of [place] [id number] 11/2005. s/p thyroidectomy 2006 (total 4.5 cm) and I131 ablation (159 mCi). Vital Signs Most recent to oldest [Reference 1 2 3 Range]: Oxygen Saturation [94-100 %] 100 % 100 % 100 % (06/03/19 3:13 PM) (3/8/20 12:30 PM) (06/03/19 12:24 PM) Pulse Rate [55-90 bpm] 84 bpm 79 bpm 79 bpm (06/03/19 3:13 PM) (06/03/19 12:30 PM) (06/03/19 12:24 PM) Blood Pressure [90-138/55-84 mm 158/101 mm Hg 170/96 mm Hg Hg] *H* *H* (06/03/19 3:13 PM) (06/03/19 12:30 PM) Respiratory Rate [16-30 br/min] 16 br/min 18 br/min (06/03/19 3:13 PM) (06/03/19 12:30 PM) Temperature [96.8-100.4 DegF] 98.3 DegF 98.8 DegF (06/03/19 3:13 PM) (06/03/19 12:30 PM) Mode of Delivery (Oxygen) Room air Room air Room a ir (06/03/19 3:13 PM) (06/03/19 12:30 PM) (06/03/19 12:24 PM) Blood pressure sites Arm, left Arm, left (06/03/19 3:13 PM) (06/03/19 12:30 PM) Temperature Route Oral Oral (06/03/19 3:13 PM) (06/03/19 12:30 PM) Social History Social History Type Response Smoking Status Never smoker entered on: 03/25/14 Sex
--- OUTSIDE RECORDS SUMMARY | 2022-02-13 15:26 | XMS_ITS | Continuity of Care Document ---
:1975 Author Organization [facility] Address [address] [place] [address]- Care Team Providers Name Role Phone Po Tamela CASTANEDA Primary Care Physician Encounter 11/15/19 - 12/10/19 [facility] [address] [place] [address]- [facility] Discharge Disposition: CLIENT NO LONGER REQUIRES SKILLED CARE Allergies, Adverse Reactions, Alerts Substance Reaction Severity [...] Patient Refuses 1Result Comment: lot [id number] exp. [id number] Medications Advair Diskus 250 mcg-50 mcg inhalation [...] each = 52 mg, Intrauterine, Once, Lot #[id number] exp 11/09, # 1 each, 1 Refills, [...] carcinoma(Confirmed)1, [address] Mary Wallace of [place] [id number] 11/2005. s/p thyroidectomy 2006 (total 4.5 cm) and I131 ablation (159 mCi). Social History Social History Type Response Smoking Status Never smoker entered on: 03/25/14 Sex
--- OUTSIDE RECORDS SUMMARY | 2022-02-13 15:26 | XMS_ITS | Continuity of Care Document ---
:1975 Author Organization [facility] Address [address] [place] [address]- Care Team Providers Name Role Phone Po Tamela CASTANEDA Primary Care Physician Encounter [facility] Date(s): 05/21/19 - 08/15/[address] [address]- [facility] Attending Physician: Faustino Day MD Referring Physician: Faustino [...] Patient Refuses 1Result Comment: lot [id number] exp. [id number] Medications Advair Diskus 250 mcg-50 mcg inhalation [...] each = 52 mg, Intrauterine, Once, Lot #[id number] exp 11/09, # 1 each, 1 Refills, [...] carcinoma(Confirmed)1, [address] Mary Wallace of [place] [id number] 11/2005. s/p thyroidectomy 2006 (total 4.5 cm) and I131 ablation (159 mCi). Social History Social History Type Response Smoking Status Never smoker entered on: 03/25/14 Sex
--- OUTSIDE RECORDS SUMMARY | 2022-02-13 15:26 | XMS_ITS | Continuity of Care Document ---
:1975 Author Organization [facility] Address [address] [place] [address]- Care Team Providers Name Role Phone Po Tamela CASTANEDA Primary Care Physician Encounter [facility] Date(s): 01/27/21 - 01/27/[address] [address]- Discharge Disposition: A-D/C Home Attending Physician: Yovany Munoz MD Admitting Physician: Yovany Munoz MD Referring Physician: Not on Staff, Referring [...] Patient Refuses 1Result Comment: lot [id number] exp. [id number] Medications Advair Diskus 250 mcg-50 mcg inhalation [...] each = 52 mg, Intrauterine, Once, Lot #[id number] exp 11/09, # 1 each, 1 Refills, [...] carcinoma(Confirmed)1, [address] Mary Wallace of [place] [id number] 11/2005. s/p thyroidectomy 2006 (total 4.5 cm) and I131 ablation (159 mCi). Vital Signs Most recent to oldest 1 2 3 [Reference Range]: Height 158 cm 158 cm 158 cm (01/27/21 3:47 PM) (01/27/21 1:28 PM) (01/27/21 1:2 4 PM) Weight 103 kg 103 kg 103 kg (01/27/21 3:47 PM) (01/27/21 1:28 PM) (01/27/21 1:2 4 PM) Oxygen Saturation [94-100 97 % 98 % %] (01/27/21 3:47 PM) (01/27/21 1:24 PM) Pulse Rate [55-90 bpm] 72 bpm 68 bpm (01/27/21 3:47 PM) (01/27/21 1:24 PM) Body Mass Index 41.26 41.26 [18.5-24.99] *>HHI* *>HHI* (01/27/21 3:47 PM) (01/27/21 1:24 PM) Blood Pressure 134/82 mm Hg 144/105 mm Hg [90-138/55-84 mm Hg] (01/27/21 3:47 PM) *H* (01/27/21 1:24 PM) Respiratory Rate [16-30 16 br/min 19 br/min br/min] (01/27/21 3:47 PM) (01/27/21 1:24 PM) Temperature [96.8-100.4 98.1 DegF DegF] (01/27/21 1:24 PM) Mode of Delivery (Oxygen) Room air Room air (01/27/21 3:47 PM) (01/27/21 1:24 PM) Blood pressure sites Arm, right Arm, right (01/27/21 3:47 PM) (01/27/21 1:24 PM) Temperature Route Oral (01/27/21 1:24 PM) Dry Weight 103 kg 103 kg 103 kg (01/27/21 3:47 PM) (01/27/21 1:28 PM) (01/27/21 1:2 4 PM) Weight Obtained Via Patient/family stated (01/27/21 1:24 PM) Dry Weight Obtained Via Patient/family stated (01/27/21 1:24 PM) Social History Social History Type Response Smoking Status Never smoker entered on: 03/25/14 Sex
--- OUTSIDE RECORDS SUMMARY | 2022-02-13 15:26 | XMS_ITS | Continuity of Care Document ---
:1975 Author Organization [facility] Address [address] [place] [address]- Care Team Providers Name Role Phone Po Tamela CASTANEDA Primary Care Physician Encounter [facility] Date(s): 10/15/19 - 10/15/[address] [address]- [facility] Encounter Diagnosis Chronic pain of right ankle (Final) - 10/15/19 Discharge Disposition: A-D/C Home Attending Physician: Abilio Tipton DO Admitting Physician: Abilio Tipton DO Referring Physician: Not on Staff, Referring [...] Patient Refuses 1Result Comment: lot [id number] exp. [id number] Medications Advair Diskus 250 mcg-50 mcg inhalation powder 1, puffs, Inhalation, 2 times a day, PRN, # 1 cartridge, Refills 0, Maintenance, 05/16/18 10:47:44 EST, Powder Start Date: 05/16/18 Status: Orderedalbuterol 90 mcg/inh inhalation aerosol 2, puffs, 3 times a day, Scheduled / PRN, 0, 0, 12/17/05 14:25:28, as needed for wheezing, Print DEAMaxwell, 70 Start Date: 12/17/05 Status: OrderedFioricet oral capsule 1 capsule, By Mouth, Every 4 hours, PRN Headache, # 10 capsule, 0 Refills, Maintenance, 08/24/19 12:01:00 EDT, Capsule, [id number], 1 capsule By Mouth Every 4 hours,PRN:Headache, 155, cm, 12/06/18 10:14:00 EDT, Height, 108.1, kg, 08/24/19 10:0... Start Date: 08/24/19 Status: OrderedFioricet Tablet 1 tablet, By Mouth, [...] each = 52 mg, Intrauterine, Once, Lot #[id number] exp 11/09, # 1 each, 1 Refills, [...] carcinoma(Confirmed)1, [address] Mary Wallace of [place] [id number] 11/2005. s/p thyroidectomy 2006 (total 4.5 cm) and I131 ablation (159 mCi). Results Radiology Reports Exam Date Time Procedure Performing Provider Status 10/15/19 2:22 PM Ankle Min 3 Views Right Deion Alvarez [facility] (Verified) Notes:(Ankle Min 3 Views Right) Reason For Exam: hx. R ORIF;PainRESULT: Ankle Min 3 Views Right Ankle Min 3 Views Right Reason: Pain; hx. R ORIF Clinical Question(s): Fracture Hx of Present Illness: ankle reconstruction surgery done in October and has had worsening pain. States known broken screw that needs to be removed. COMPARISON: Multiple priors, last 05/24/2018 FINDINGS: No evidence of acute fracture. Interval removal of distal fibular plate and screws. Partial syndesmotic screw remains within the distal tibia and fibula. There is bony fusion between the distal tibia and fibula. Intact ankle mortise and talar dome. Well-circumscribed ossifications inferior to the medial malleolus could represent loose bodies, new from 2018. Large calcaneal plantar spur and Achilles enthesophyte. Normal soft tissues. IMPRESSION: No acute abnormality. Ossifications inferior to the medial malleolus may represent loose bodies Unchanged fractured syndesmotic screw. I have personally reviewed the images and I agree with this report. WSN: [id number] Ordering Physician: Anabell Verdin Dictated By: Kulwinder Esquivel DO Dictated Date/Time: 10/15/19 2:55 pm Reviewed By: Elia Guardado MD Signed By: Elia Guardado MD Signed Date/Time: 10/15/19 3:00 pm Transcribed By: CHAYA Transcribed Date/Time: 10/15/19 2:40 pm Vital Signs Most recent to oldest 1 2 3 [Reference Range]: Height 158 cm 158 cm (10/15/19 12:25 PM) (10/15/19 12:21 PM) Weight 106.6 kg 106.6 kg (10/15/19 12:25 PM) (10/15/19 12:21 PM) Oxygen Saturation [94-100 %] 98 % 100 % 100 % (10/15/19 3:23 PM) (10/15/19 12:21 PM) (10/15/19 12 :18 PM) Pulse Rate [55-90 bpm] 86 bpm 81 bpm 86 bpm (10/15/19 3:23 PM) (10/15/19 12:21 PM) (10/15/19 12 :18 PM) Body Mass Index [18.5-24.99] 42.7 *>HHI* (10/15/19 12:21 PM) Blood Pressure [90-138/55-84 133/87 mm Hg 134/90 mm Hg mm Hg] (10/15/19 3:23 PM) (10/15/19 12:21 PM) Respiratory Rate [16-30 20 br/min 18 br/min 18 br/mi n br/min] (10/15/19 3:23 PM) (10/15/19 12:21 PM) (10/15/19 12 :18 PM) Temperature [96.8-100.4 98.5 DegF DegF] (10/15/19 12: PM) Mode of Delivery (Oxygen) Room air Room air Room a ir (10/15/19 3:23 PM) (10/15/19 12:21 PM) (10/15/19 12 :18 PM) Blood pressure sites Arm, left Arm, right (10/15/19 3:23 PM) (10/15/19 12:21 PM) Temperature Route Oral (10/15/19 12:21 PM) Dry Weight 106.6 kg 106.6 kg (10/15/19 12:25 PM) (10/15/19 12:21 PM) Weight Obtained Via Standing scale (10/15/19 12:21 PM) Dry Weight Obtained Via Standing scale (10/15/19 12:21 PM) Social History Social History Type Response Smoking Status Never smoker entered on: 03/25/14 Sex
--- OUTSIDE RECORDS SUMMARY | 2022-02-13 15:26 | XMS_ITS | Continuity of Care Document ---
:1975 Author Organization [facility] Address [address] [place] [address]- Care Team Providers Name Role Phone Po Tamela CASTANEDA Primary Care Physician Encounter [facility] Date(s): 06/04/21 - 07/17/[address] [address] Attending Physician: Mary Wallace DO Admitting Physician: Mary Wallace DO Referring Physician: Mary Wallace DO Allergies, Adverse Reactions, Alerts Substance Reaction Severity [...] Patient Refuses 1Result Comment: lot [id number] exp. [id number] Medications Advair Diskus 250 mcg-50 mcg inhalation [...] each = 52 mg, Intrauterine, Once, Lot #[id number] exp 11/09, # 1 each, 1 Refills, [...] carcinoma(Confirmed)1, [address] Mary Wallace of [place] [id number] 11/2005. s/p thyroidectomy 2006 (total 4.5 cm) and I131 ablation (159 mCi). Social History Social History Type Response Smoking Status Never smoker entered on: 03/25/14 Sex
--- OUTSIDE RECORDS SUMMARY | 2022-02-13 15:26 | XMS_ITS | Continuity of Care Document ---
:1975 Author Organization [facility] Address [address] [place] [address]- Care Team Providers Name Role Phone Po Tamela CASTANEDA Primary Care Physician Encounter [facility] Date(s): 08/24/19 - 08/24/[address] [address]- [facility] Encounter Diagnosis Migraine (Final) - 08/24/19 Discharge Disposition: A-D/C Home Attending Physician: Malachi Carter MD Admitting Physician: Malachi Carter MD Referring Physician: Not on Staff, Referring [...] Patient Refuses 1Result Comment: lot [id number] exp. [id number] Medications Advair Diskus 250 mcg-50 mcg inhalation powder 1, puffs, Inhalation, 2 times a day, PRN, # 1 cartridge, Refills 0, Maintenance, 05/16/18 10:47:44 EST, Powder Start Date: 05/16/18 Status: Orderedalbuterol 90 mcg/inh inhalation aerosol 2, puffs, 3 times a day, Scheduled / PRN, 0, 0, 12/17/05 14:25:28, as needed for wheezing, Print DEANumber, 70 Start Date: 12/17/05 Status: OrderedFioricet oral [...] each = 52 mg, Intrauterine, Once, Lot #[id number] exp 11/09, # 1 each, 1 Refills, [...] carcinoma(Confirmed)1, [address] Mary Wallace of [place] [id number] 11/2005. s/p thyroidectomy 2006 (total 4.5 cm) and I131 ablation (159 mCi). Vital Signs Most recent to oldest 1 2 3 [Reference Range]: Weight 108.1 kg 108.1 kg (08/24/19 10:07 AM) (08/24/19 7:31 AM) Oxygen Saturation [94-100 %] 97 % 100 % (08/24/19 10:07 AM) (08/24/19 7:31 AM) Pulse Rate [55-90 bpm] 73 bpm 82 bpm (08/24/19 10:07 AM) (08/24/19 7:31 AM) Blood Pressure [90-138/55-84 148/87 mm Hg 158/95 mm Hg mm Hg] *H* *H* (08/24/19 10:07 AM) (08/24/19 7:31 AM) Respiratory Rate [16-30 18 br/min 20 br/min 17 br/mi n br/min] (08/24/19 12:13 PM) (08/24/19 10:07 AM) (08/24/19 9 :33 AM) Temperature [96.8-100.4 DegF] 98.2 DegF (08/24/19 7:31 AM) Mode of Delivery (Oxygen) Room air Room air (08/24/19 10:07 AM) (08/24/19 7:31 AM) Blood pressure sites Arm, left Arm, right (08/24/19 10:07 AM) (08/24/19 7:31 AM) Temperature Route Oral (08/24/19 7:31 AM) Dry Weight 108.1 kg 108.1 kg (08/24/19 10:07 AM) (08/24/19 7:31 AM) Dry Weight Obtained Via Standing scale (08/24/19 7:31 AM) Social History Social History Type Response Smoking Status Never smoker entered on: 03/25/14 Sex
--- OUTSIDE RECORDS SUMMARY | 2022-02-13 15:26 | XMS_ITS | Continuity of Care Document ---
:1975 Author Organization [facility] Address [address] [place] [address]- Care Team Providers Name Role Phone Po Tamela CASTANEDA Primary Care Physician Encounter [facility] Date(s): 11/13/19 - 12/13/[address] [address]- [facility] Attending Physician: Not on Staff, Attending MD Admitting Physician: Not on Staff, Admitting MD Referring Physician: Not on Staff, Referring [...] Patient Refuses 1Result Comment: lot [id number] exp. [id number] Medications Advair Diskus 250 mcg-50 mcg inhalation powder 1, puffs, Inhalation, 2 times a day, PRN, # 1 cartridge, Refills 0, Maintenance, 05/16/18 10:47:44 EST, Powder Start Date: 05/16/18 Status: Orderedalbuterol 90 mcg/inh inhalation aerosol 2, puffs, 3 times a day, Scheduled / PRN, 0, 0, 12/17/05 14:25:28, as needed for wheezing, Print Ronak, 70 Start Date: 12/17/05 Status: OrderedDilaudid 2 [...] each = 52 mg, Intrauterine, Once, Lot #[id number] exp 11/09, # 1 each, 1 Refills, [...] carcinoma(Confirmed)1, [address] Mary Wallace of [place] [id number] 11/2005. s/p thyroidectomy 2006 (total 4.5 cm) and I131 ablation (159 mCi). Social History Social History Type Response Smoking Status Never smoker entered on: 03/25/14 Sex
--- OUTSIDE RECORDS SUMMARY | 2022-02-13 15:26 | XMS_ITS | Continuity of Care Document ---
:1975 Author Organization [facility] Address [address] [place] [address]- Care Team Providers Name Role Phone Po Tamela CASTANEDA Primary Care Physician Encounter [facility] Date(s): 05/22/20 - 06/21/[address] [address] Allergies, Adverse Reactions, Alerts Substance Reaction Severity [...] Patient Refuses 1Result Comment: lot [id number] exp. [id number] Medications Advair Diskus 250 mcg-50 mcg inhalation powder 1, puffs, Inhalation, 2 times a day, PRN, # 1 cartridge, Refills 0, Maintenance, 05/16/18 10:47:44 EST, Powder Start Date: 05/16/18 Status: Orderedalbuterol 90 mcg/inh inhalation aerosol 2, puffs, 3 times a day, Scheduled / PRN, 0, 0, 12/17/05 14:25:28, as needed for wheezing, Print Ronak, Ej Start Date: 12/17/05 Status: OrderedDilaudid 2 mg [...] each = 52 mg, Intrauterine, Once, Lot #[id number] exp 11/09, # 1 each, 1 Refills, [...] carcinoma(Confirmed)1, [address] Mary Wallace of [place] [id number] 11/2005. s/p thyroidectomy 2006 (total 4.5 cm) and I131 ablation (159 mCi). Social History Social History Type Response Smoking Status Never smoker entered on: 03/25/14 Sex
--- NOTE | 2022-02-13 15:42 | ED.GENADULT ---
HPI - General Adult General Chief complaint: General Medical Stated complaint: ABD PAIN FROM URGENT CARE PER EMS Time Seen by Provider: 02/13/22 15:34 Source: patient Mode of arrival: ambulatory History of Present Illness HPI narrative: 46-year-old female with a past medical history of asthma, HTN, HLD, migraines, obesity, vertigo, renal stones requiring lithotripsy, presenting to the ED complaining of right flank pain x2 days with associated nausea, dysuria, frequency and decreased urine output. Denies fever, chills, vomiting, diarrhea, hematuria Onset (ago): day(s) Related Data Previous Rx's Medication Instructions Recorded allopurinol 100 mg tablet 100 mg PO DAILY 90 days #90 tabs 06/25/20 albuterol sulfate 90 mcg/actuation 2 puff inhalation Q6H PRN 07/02/20 aerosol inhaler (ProAir HFA) shortness of breath or wheezing 30 days #8.5 grams sumatriptan succinate 100 mg tablet 100 mg PO DAILY PRN for migraine 12/07/20 #10 tabs meclizine 25 mg tablet 25 mg PO TID PRN for dizziness #90 01/01/21 tabs blood pressure monitor #1 ea 03/05/21 lisinopril 40 mg tablet 40 mg PO DAILY 30 days #90 tabs 04/20/21 ergotamine 1 mg-caffeine 100 mg See Rx Instructions PO .COMPLEX 3 08/12/21 tablet days #10 tabs levothyroxine 100 mcg capsule 100 mcg PO DAILY 90 days #90 caps 08/31/21 (Tirosint) levothyroxine 150 mcg capsule 150 mcg PO DAILY 90 days #90 caps 08/31/21 (Tirosint) cholecalciferol (vitamin D3) 25 25 mcg PO DAILY 90 days #90 tabs 10/02/21 mcg (1,000 unit) tablet levothyroxine 25 mcg capsule 25 mcg PO DAILY 90 days #90 caps 10/02/21 (Tirosint) pyridoxine (vitamin B6) 100 mg 100 mg PO DAILY 90 days #90 tabs 10/02/21 tablet diclofenac sodium 1 % topical gel 4 g topical QID #100 grams 11/18/21 (Voltaren Arthritis Pain) amlodipine 2.5 mg tablet 2.5 mg PO DAILY #90 tabs 02/08/22 ciprofloxacin HCl 500 mg tablet 500 mg PO BID 7 days #14 tabs 02/13/22 ketorolac 10 mg tablet 10 mg PO TID PRN pain 5 days #15 02/13/22 tabs ondansetron 4 mg disintegrating 4 mg PO Q8H PRN nausea and 02/13/22 tablet vomiting #10 tabs tamsulosin 0.4 mg capsule (Flomax) 0.4 mg PO DAILY #14 caps 02/13/22 Allergies Allergy/AdvReac Type Severity Reaction Status Date / Time oxycodone [OXYCODONE] Allergy Intermediate RASH,SHAKES, Verified 01/07/22 09:32 shakiness, body shaking, tremors Review of Systems Review of Systems: Constitutional: No Fever, No Chills, No Fatigue, No Malaise ENT/Mouth: No Ear Pain, No Nasal Congestion, No sore throat, No Rhinorrhea, No Swallowing Difficulty Eyes: No Eye Pain, No Swelling, No Redness, No Vision Changes Cardiovascular: No Chest Pain, No SOB, No Edema, No Palpitations Respiratory: No Cough, No Sputum, No Wheezing, No Dyspnea Gastrointestinal: No Nausea, No Vomiting, No Diarrhea, No Constipation, No Abdominal pain Genitourinary: No irregular bleeding, + Dysuria, + Urinary Frequency, No Hematuria, No Urinary Incontinence/retention, No Urgency, + Flank Pain, + Urinary Flow Changes, No Hesitancy Musculoskeletal: No joint pain, No Myalgias, No Joint Swelling Skin: No Skin Lesions, No rash Neuro: No Weakness, No Loss of Consciousness, No Dizziness, No Headache Yes all other systems are reviewed and are negative Constitutional: Constitutional: Reports as per [facility] Past Medical History Attestation statement: The following information was validated with the patient. Medical History Asthma Asthma exacerbation Benign essential hypertension Closed right ankle fracture COVID-19 vaccine administered Elevated LFTs Family history of von Willebrand disease History of renal calculi History of thyroid cancer Hypercholesterolemia Hypothyroid Impaired fasting glucose 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 Lumbar disc herniation Migraine Obesity Patellar fracture Pericardial effusion Postsurgical hypothyroidism Pure hypercholesterolemia Swelling of left knee joint Vertigo Vitamin D deficiency Surgical History History of ankle surgery History of back surgery History of bladder surgery History of section History of cholecystectomy History of pubovaginal sling History of thyroid surgery Hx of cystoscopy Hx of tubal ligation Tubal ligation status Family History Family History Daughter Von Willebrand disease Other Asthma Diabetes Emphysema of lung Family history of bladder cancer Family history of breast cancer Family history of lung cancer Family history of prostate cancer Social History Social History Household Members: Family and Children Housing: House Do you presently have visiting nurse or other home services: No Alcohol intake: never Patient Tobacco Use Status: Never used Tobacco e-Cigarette/Vaping Use: Never Used Second Hand Smoke Exposure: No Advance Directives: No Advance Directives Information Provided: Yes service: No Current occupational status: employed 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 Cognitive needs: No Hearing needs: No Vision needs: No Physical Exam ED Vital Signs: Vital Signs - 24 hr 02/13/22 14:49 02/13/22 16:09 Temperature 97.7 F Pulse Rate 84 79 Respiratory Rate 20 18 Blood Pressure 100/59 L 114/76 Pulse Oximetry 95 96 Oxygen Delivery Method Room Air Room Air BMI result Body Mass Index 44.4 Const General: cooperative, healthy appearing and no acute distress Orientation/consciousness: patient oriented x3 Limitations: no limitations HENMT Head: Yes normal to inspection and Yes atraumatic Ears: hearing grossly normal bilaterally General nose exam: Normal external nose present Face and sinus: Yes normal facial exam Eyes General: appearance normal, both eyes and all related structures EOM: EOMs intact bilaterally Neck Neck: Yes normal visual inspection and Yes no meningeal signs Resp Effort & Inspection: normal respiratory effort and no respiratory distress Auscultation: clear to auscultation bilaterally, no crackles, no rales, no rhonchi and no wheezes Cardio Rate: regular rate Heart sounds: S1 normal heart sound present and S2 normal heart sound present GI Inspection: Yes normal to inspection Palpation (GI): Soft to palpation, nontender, no guarding and not rigid General: Yes CVA tenderness on the right Back/Spine/Pelvis Back: CVA tenderness Skin Rashes: no rashes Wounds: no wounds Neuro General: patient oriented x3, tone normal and no meningeal signs Gait exam (Neuro): Normal gait present Extrem General: Yes normal to inspection Course Course Course Narrative: -mild leukocytosis of 12.3. Renal function WNL, labs otherwise reassuring -UA not infected CT abdomen pelvis wo IV con IMPRESSION: 1.? Moderate hydronephrosis of right kidney due to an obstructing 3 mm stone at the right ureterovesical junction. There is an additional 2 mm stone in the distal right ureter. 2.? Bilateral nonobstructive renal stones. 3.? Hepatomegaly with diffuse fatty change of liver. 4.? 7.5 cm right adnexal cyst. 5.? IUD in endometrial cavity. ? Fleischner guidelines were followed. >> will consult Urology Spoke with Urology, Dr. Walker, recommended if patient is comfortable can be discharged home with Cipro 500 mg b.i.d. for 7 days with follow-up in there office. 1904--on re-evaluation patient is comfortable, denies pain at present. Will discharge home with Toradol, Flomax, Zofran. Results discussed with patient including worrisome signs and symptoms and strict return precautions, and when to return to the emergency department. They verbalized understanding and feel safe for discharge at this time. Medications Administered Discontinued Medications Generic Name Dose Route Start Last Admin Trade Name Freq PRN Reason Stop Dose Admin Sodium Chloride 1,000 mls @ 999 mls/hr 02/13/22 15:45 02/13/22 16:12 Ns IV 02/13/22 16:45 999 mls/hr .Q1H1M LUZ MARIA Administration Ketorolac Tromethamine 15 mg 02/13/22 15:39 02/13/22 16:12 Ketorolac Tromethamine 15 Mg/Ml Vial IVPUSH 02/13/22 15:40 15 mg ONCE ONE Administration Ondansetron HCl 4 mg 02/13/22 15:39 02/13/22 16:12 Ondansetron Hcl 4 Mg/2 Ml Vial IVPUSH 02/13/22 15:40 4 mg ONCE ONE Administration Medical Decision Making [facility] Narrative Medical decision making narrative: 46-year-old female with a past medical history of asthma, HTN, HLD, migraines, obesity, vertigo, renal stones requiring lithotripsy, presenting to the ED complaining of right flank pain x2 days with associated nausea, dysuria, frequency and decreased urine output. On exam vital signs stable, NAD, nontoxic appearing, abdomen soft/nontender, right CVA tenderness noted. Concern for renal stone vs UTI/pyelo. Rule out MKEA. Lower suspicion for appendicitis/diverticulitis Plan: Labs, UA, CT AP, IVF, pain management Medical Records Medical records reviewed: Yes I reviewed the patient's medical records. Lab Data Lab results reviewed: Yes I reviewed the patient's lab results. Result diagrams: 02/13/22 16:08 02/13/22 16:08 Labs: Lab Results 02/13/22 02/13/22 02/13/22 Range/Units 16:08 16:08 18:06 WBC 12.3 H (4.8-10.8) X10*3/uL RBC 4.38 (4.20-5.50) X10*6/uL Hgb 13.7 (12.0-16.0) g/dl Hct 40.3 (37.0-47.0) % MCV 92.0 (80.0-98.0) fL MCH 31.3 (27.0-33.0) pg MCHC 34.0 (31.0-35.0) g/dl RDW 12.1 (11.0-16.0) % Plt Count 323 (160-400) X10*3/uL MPV 9.9 (9.4-12.3) fL Immature Gran % (Auto) 0.5 H (0.0-0.4) % Neut % (Auto) 73.5 H (45-73) % Lymph % (Auto) 16.3 L (20-40) % [place] % (Auto) 8.3 (2-11) % Eos % (Auto) 1.0 (0-4) % Baso % (Auto) 0.4 (0-2) % Lymph # (Auto) 2.0 (1.2-4.9) X10*3/uL [place] # (Auto) 1.0 (0.1-1.2) X10*3/uL Eos # (Auto) 0.1 (0.0-0.4) X10*3/uL Baso # (Auto) 0.1 (0.0-0.2) X10*3/uL Abs Immat Gran (auto) 0.06 H (0.00-0.03) X10*3/uL Absolute Neuts (auto) 9.1 H (2.0-8.3) x10*3/uL Absolute Nucleated RBC 0.000 (0.0-0.012) X10*3/uL Nucleated RBC % (auto) 0.0 (0.0-0.2) /100WBC Sodium 139 (135-145) mmol/L Potassium 3.7 (3.3-5.1) mmol/L Chloride 102 (96-108) mmol/L Carbon Dioxide 27 (22-29) mmol/L Anion Gap 14 (12-20) BUN 13 (9-16) mg/dL Creatinine 0.67 (0.5-1.4) mg/dL Estim Creat Clear Calc 120.6 Estimated GFR > 60 Random Glucose 110 (60-115) mg/dL Calcium 8.5 (8.4-10.2) mg/dL Total Bilirubin 0.5 (0.0-1.0) mg/dL Direct Bilirubin < 0.2 (0.0-0.5) mg/dL AST 29 (5-31) U/L ALT 34 H (0-31) U/L Alkaline Phosphatase 71 (39-117) U/L Total Protein 6.5 (6.5-8.0) g/dL Albumin 4.0 (3.5-5.0) g/dL Lipase 17 (8-78) U/L Beta HCG, Quant < 2 mIU/mL Urine Color Yellow Urine Appearance Clear Urine pH 6.0 (5.0-9.0) Ur Specific [place] 1.010 (1.005-1.025) Urine Protein Negative (Neg-Trace) mg/dL Urine Glucose (UA) Negative (Negative) mg/dL Urine Ketones Negative (Negative) mg/dL Urine Blood Negative (Negative) Urine Nitrite Negative (Negative) Ur Leukocyte Esterase Negative (Negative) Discharge Plan Discharge Clinical Impression: Calculus of ureterovesical junction (UVJ), Hydronephrosis Patient Disposition: Home, Self-Care Instructions: Hydronephrosis (ED), Ureteral Stones (ED) Additional Instructions: Your CT scan shows moderate hydronephrosis, back wall of urine into her kidney as well as an obstructing 3 mm stone in your uretero vesicular junction in a 2 mm stone in her distal right ureter Ciprofloxacin as an antibiotic please take as prescribed. Zofran is antinausea medication Flomax to help dilate the ureter to help pass the stone take. Toradol is a anti-inflammatory/pain medication, take with food Please have close follow-up in the urology office. If symptoms persist or worsen, you are unable to urinate, developed fever, persistent or worsening abdominal pain/nausea or vomiting return to the ED Prescriptions: New ciprofloxacin HCl 500 mg tablet 500 mg PO BID 7 Days Qty: 14 0RF ketorolac 10 mg tablet 10 mg PO TID PRN (Reason: pain) 5 Days Qty: 15 0RF tamsulosin [Flomax] 0.4 mg capsule 0.4 mg PO DAILY Qty: 14 0RF ondansetron 4 mg tablet,disintegrating 4 mg PO Q8H PRN (Reason: nausea and vomiting) Qty: 10 0RF No Action sumatriptan succinate 100 mg tablet 100 mg PO DAILY PRN (Reason: for migraine) Qty: 10 2RF meclizine 25 mg tablet 25 mg PO TID PRN (Reason: for dizziness) Qty: 90 1RF lisinopril 40 mg tablet 40 mg PO DAILY 30 Days Qty: 90 3RF ergotamine-caffeine 1-100 mg tablet See Rx Instructions PO .COMPLEX 3 Days Qty: 10 0RF Rx Instructions: take 2 tablets at onset of headache; if no relief, may repeat 1 tablet after at least 2 hrs; max = 3 tabs/24 hrs PO levothyroxine [Tirosint] 100 mcg capsule 100 mcg PO DAILY 90 Days Qty: 90 3RF Rx Instructions: 100 mcg + 150 mcg + 25 mcg. daily dose is 275 mcg levothyroxine [Tirosint] 150 mcg capsule 150 mcg PO DAILY 90 Days Qty: 90 3RF Rx Instructions: 100 mcg + 150 mcg + 25 mcg = 275 mcg QD amlodipine 2.5 mg tablet 2.5 mg PO DAILY Qty: 90 2RF albuterol sulfate [ProAir HFA] 90 mcg/actuation HFA aerosol inhaler 2 puff inhalation Q6H PRN (Reason: shortness of breath or wheezing) 30 Days Qty: 8.5 3RF (DME) blood pressure monitor Kit See Rx Instructions .ROUTE .MEDSUPPLY Qty: 1 0RF Rx Instructions: As directed cholecalciferol (vitamin D3) 25 mcg (1,000 unit) tablet 25 mcg PO DAILY 90 Days Qty: 90 3RF pyridoxine (vitamin B6) 100 mg tablet 100 mg PO DAILY 90 Days Qty: 90 3RF levothyroxine [Tirosint] 25 mcg capsule 25 mcg PO DAILY 90 Days Qty: 90 3RF Rx Instructions: 100 +150 +25 mcg = 275 mcg diclofenac sodium [Voltaren Arthritis Pain] 1 % gel 4 g topical QID Qty: 100 1RF Rx Instructions: apply to single knee, ankle, foot; for foot includes sole/toes/top of foot allopurinol 100 mg tablet 100 mg PO DAILY 90 Days Qty: 90 1RF Referrals: [facility] [place] Group] - 5 days
[2022-02-13 16:09] VITALS: BP 114/76; PULSE 79; RESP 18; O2SAT 96
[2022-02-13 16:12] LABS: MANUAL DIFF FLAG NO
[2022-02-13] MEDS: Ketorolac Tromethamine 15 MG/ML VIAL IVPUSH ×2 (16:12→19:38)
[2022-02-13] MEDS: ondansetron HCL 4 MG/2 ML VIAL IVPUSH (16:12)
[2022-02-13] MEDS: 0.9 % Sodium Chloride 1,000 ML 999 ML IV (16:12)
[2022-02-13 16:15] LABS: Basophils Absolute Auto 0.1 X10*3/uL (0.0-0.2); Basophils Percent Auto 0.4 % (0-2); Eosinophils Absolute Auto 0.1 X10*3/uL (0.0-0.4); Hematocrit 40.3 % (37.0-47.0); Hemoglobin 13.7 g/dl (12.0-16.0); Imm Gran Abs Auto 0.06 X10*3/uL (0.00-0.03); Imm Gran Pct Auto 0.5 % (0.0-0.4); Lymphocytes Percent Auto 16.3 % (20-40); Mean Corpuscular Hemoglobin 31.3 pg (27.0-33.0); Mean Platelet Volume 9.9 fL (9.4-12.3); Monocytes Percent Auto 8.3 % (2-11); Neutrophils Absolute Auto 9.1 x10*3/uL (2.0-8.3); Neutrophils Percent Auto 73.5 % (45-73); Platelet Count 323 X10*3/uL (160-400); Red Blood Count 4.38 X10*6/uL (4.20-5.50); Red Cell Distribution Width 12.1 % (11.0-16.0); White Blood Count 12.3 X10*3/uL (4.8-10.8)
--- NOTE | 2022-02-13 16:17 | PC.NURSE ---
pt. alert and oriented. complains of rt flank pain x 3 dyas 8/10 non radiating. denies other symptoms. gave her ketorolac and zofran per providers orders.
[2022-02-13 16:28] LABS: Alanine Aminotransferase 34 U/L (0-31); Alkaline Phosphatase 71 U/L (39-117); Anion Gap 14 (12-20); Aspartate Amino Transferase 29 U/L (5-31); Bilirubin Direct < 0.2 mg/dL (0.0-0.5); Bilirubin Total 0.5 mg/dL (0.0-1.0); Blood Urea Nitrogen 13 mg/dL (9-16); Calcium 8.5 mg/dL (8.4-10.2); Carbon Dioxide 27 mmol/L (22-29); Chloride 102 mmol/L (96-108); Creatinine Clr Calc Pharmacy 120.6; Estimated Glomerular Filt Rate > 60; Glucose Random 110 mg/dL (60-115); Lipase 17 U/L (8-78); Potassium 3.7 mmol/L (3.3-5.1); Sodium 139 mmol/L (135-145); Total Protein 6.5 g/dL (6.5-8.0)
[2022-02-13 18:03] LABS: HCG Quantitative < 2 mIU/mL
[2022-02-13 18:25] LABS: Appearance Urine Clear; Color Urine Yellow; Glucose Urine UA Negative (Negative); Leukocyte Esterase Urine Negative (Negative); Nitrite Urine Negative (Negative); Urine Blood Negative (Negative); Urine Ketones Negative (Negative); Urine Protein Negative (Neg-Trace)
--- NOTE | 2022-02-13 19:49 | PC.NURSE ---
pt medicated according to nadege. pt SO at bedside at time of discharge. iv removed at time of discharge. discharge packet provided to pt. pt verbalized understanding of discharge packet
== END 2022-02-13 19:51 | disposition home or self-care (01) ==
PROVIDERS: Physician Assistant; Emergency Provider Emergency Medicine Emergency Medical Services
DX: N13.2 Hydronephrosis with renal and ureteral calculous obstruction (principal); I10 Essential (primary) hypertension; E78.00 Pure hypercholesterolemia, unspecified; E66.9 Obesity, unspecified; Z68.41 Body mass index [BMI] 40.0-44.9, adult; Z79.899 Other long term (current) drug therapy
CPT/HCPCS: 36415; 51798; 74176; 80048; 80076; 81003; 83690; 84702; 85025; 96361; 96374; 96375; 96376; 99284; J1885; J2405

== ENCOUNTER → 2022-02-22 09:52 | Outpatient (BNVA) | payer OTHER, SELFPAY | PROVIDERS: PCP Internal Medicine; Visit Provider Physician Assistant | DX: M17.12 Unilateral primary osteoarthritis, left knee (principal) | CPT/HCPCS: 99212 ==

== ENCOUNTER → 2022-03-31 14:51 | Outpatient (BNVA) | payer OTHER, SELFPAY | PROVIDERS: PCP Internal Medicine; Visit Provider Urology | DX: N13.2 Hydronephrosis with renal and ureteral calculous obstruction (principal) | CPT/HCPCS: 99202 ==

== ENCOUNTER 2022-04-02 15:04 | Outpatient (REF) | payer OTHER, SELFPAY ==
--- NOTE | ~2022-04-02 | CT_ITS ---
EXAMINATION: CT ABDOMEN AND PELVIS WITHOUT CONTRAST CLINICAL INFORMATION: Abdominal pain. COMPARISON: 02/13/2022 TECHNIQUE: Multidetector volumetric imaging was performed from the superior aspect of the liver through the pubic symphysis. Sagittal and coronal reformatted images were obtained on the technologist's workstation. This CT examination was performed using dose optimization techniques as appropriate, variously including the following: *Automated exposure control *Adjustment of mA and/or kV according to patient size (this includes techniques or standardized protocols for targeted exams where dose is matched to indication/reason for exam; i.e. extremities or head) *Use of iterative reconstruction technique DLP: 881 mGy-cm FINDINGS: LUNG BASES: The visualized lung bases are unremarkable. LIVER, GALLBLADDER, AND BILIARY TREE: The liver is enlarged measuring 23 cm in CC dimension. There is diffusely low-attenuation. Normal shape of the liver. No focal hepatic lesion or biliary ductal dilatation is present. Cholecystectomy. PANCREAS: Unremarkable. SPLEEN: Unremarkable. ADRENAL GLANDS: Normal left adrenal gland. Right adrenal gland nodule which measures 2.3 x 1.9 cm, consistent with a lipid rich adenoma. KIDNEYS AND URETERS: The kidneys are normal in size, shape, and attenuation. No hydronephrosis or hydroureter. Right lower pole 0.3 cm calculus is 16 cm from the posterior axillary line. BLADDER: Unremarkable. GASTROINTESTINAL TRACT: The stomach is unremarkable. Normal caliber small bowel. No obstruction. Scattered colonic diverticulosis without diverticulitis. No free air or free fluid. Normal appendix. ABDOMINAL WALL: No significant hernia is appreciated. LYMPH NODES: Normal. VASCULAR: Unremarkable. PELVIC VISCERA: Anteverted uterus. IUD is angulated and somewhat low in position within the endometrial cavity. This is similar to prior. Complex appearance of the left ovary with multiple cysts, portions of which are somewhat hyperattenuating.There is redemonstration of a right adnexal cyst. This measures higher than simple fluid, measuring 6.5 cm. This is fairly similar to prior. OSSEOUS STRUCTURES: No acute or suspicious osseous abnormality. Posterior fusion hardware at L5-S1. Degenerative changes of the spine. CT/CT abdomen pelvis wo IV con IMPRESSION: 1. No acute findings in the abdomen or pelvis. No inflammatory changes. 2. Hepatomegaly with hepatic steatosis. 3. Complex appearance of the bilateral ovaries, similar to prior. This can be further evaluated with nonemergent pelvic ultrasound. 4. Nonobstructing right lower pole renal calculus. 5. Right adrenal gland adenoma. 6. IUD is angulated and somewhat low in position within the endometrial cavity. This is similar to prior. Fleischner guidelines were followed.
== END 2022-04-02 15:05 | disposition home or self-care (01) ==
LOC: HO.CT 15:04
PROVIDERS: PCP Internal Medicine; Visit Provider Urology
DX: N20.1 Calculus of ureter (principal); N13.30 Unspecified hydronephrosis
CPT/HCPCS: 74176

== ENCOUNTER → 2022-04-05 09:41 | Outpatient (BNVA) | payer OTHER, SELFPAY | PROVIDERS: PCP Internal Medicine; Visit Provider Physician Assistant | DX: M17.12 Unilateral primary osteoarthritis, left knee (principal) | CPT/HCPCS: 99212 ==

== ENCOUNTER 2022-04-14 13:47 | Outpatient (REF) | payer OTHER, SELFPAY ==
[2022-04-14 18:56] LABS: CT PCR NOT DETECTED (Not Detect.); NG PCR NOT DETECTED (Not Detect.)
[2022-04-17 03:18] LABS: HPV mRNA E6/E7 rflx Not Detected (Not Detected)
== END 2022-04-14 13:48 | disposition home or self-care (01) ==
LOC: HO.LNP 13:47
PROVIDERS: PCP Internal Medicine; Visit Provider Obstetrics & Gynecology
DX: Z30.433 Encounter for removal and reinsertion of intrauterine contraceptive device (principal); T83.32XD Displacement of intrauterine contraceptive device, subsequent encounter; N83.299 Other ovarian cyst, unspecified side; D35.01 Benign neoplasm of right adrenal gland
CPT/HCPCS: 0353U; 58300; 58301; 81025; 87624; 88142; 99202; J7298

== ENCOUNTER 2022-04-15 11:13 | Outpatient (REF) | payer OTHER, SELFPAY ==
[2022-04-15 14:41] LABS: Free T4 (Free Thyroxine) 1.39 ng/dL (0.71-1.85); Thyroid Stimulating Hormone 0.94 uIU/mL (0.32-4.0); Vitamin D 25-OH Total 30.1 ng/mL (>30)
[2022-04-16 10:13] LABS: CA-125 18 U/mL (<35)
[2022-04-17 05:28] LABS: Thyroglobulin Antibodies <1 IU/mL (< or = 1)
== END 2022-04-15 11:14 | disposition home or self-care (01) ==
LOC: HO.10HDL 11:13
PROVIDERS: Absent Provider Obstetrics & Gynecology; PCP Internal Medicine; Visit Provider Internal Medicine
DX: N83.299 Other ovarian cyst, unspecified side (principal); C73 Malignant neoplasm of thyroid gland; E55.9 Vitamin D deficiency, unspecified
CPT/HCPCS: 36415; 82306; 84439; 84443; 86304; 86800

== ENCOUNTER 2022-04-26 09:44 | Outpatient (REF) | payer OTHER, SELFPAY ==
--- NOTE | ~2022-04-26 | US_ITS ---
EXAMINATION: US PELVIS CLINICAL INFORMATION: N83.299 - Other ovarian cyst, unspecified side . Age 47. COMPARISON: CT abdomen and pelvis 04/02/2022, 02/13/2022, PET/CT 09/16/2020, pelvic ultrasound 08/24/2018. TECHNIQUE: Ultrasound of the pelvis is performed using both transabdominal and transvaginal transducers along with Doppler. Transvaginal imaging is performed due to inadequate visualization transabdominally. Cabin Outfitter notes technically challenging exam secondary to patient body habitus. FINDINGS: Uterus: The uterus is anteverted and measures 9.9 x 5.4 x 6.8 cm. There is an IUD present. The lower portion of the IUD appears in the lower uterine segment, within 1.3 cm of the cervix. The visualized endometrium shows no thickening and there is no fluid in the uterine cavity. The uterus is smooth in contour and has normal myometrial echogenicity. No visible fibroid. Some incidental nabothian cysts in the cervix. Adnexa: Both ovaries are visualized. There is normal color flow to the adnexa. There is no ovarian torsion. There is no pelvic ascites or fluid collection. Right ovary measures 4.7 x 2.0 x 3.3 cm. There is a dominant unilocular right ovarian cyst measuring 6.8 x 6.0 x 7.5 cm. There is no visible internal septation or solid component. No wall thickening or color flow. There is increased through-transmission of sound. An incidental follicle is also seen in the right ovary measuring 1 cm. Left ovary is enlarged measuring 8.1 x 4.9 x 6.7 cm. Prior measurements 2019 are 7.5 x 5.1 x 5.3 cm. Measurements include poorly discerned exophytic nodule possibly complicated cyst measuring just under 2 cm. Results and management options discussed with Dr. Crabtree on 04/26/2022. Given the technically challenging exam, further assessment at this time could be performed with pelvic MRI without and with gadolinium contrast. If not performed, then follow-up pelvic ultrasound in 3-6 months would be recommended. US/US pelvic and transvaginal IMPRESSION: 1. Probable benign right ovarian cyst 7.5 cm. Enlarged left ovary, 8.1 x 4.9 x 6.7 cm. No ascites. 2. IUD with lower end in lower uterine segment.
== END 2022-04-26 09:45 | disposition home or self-care (01) ==
LOC: HO.HMGCX 09:44
PROVIDERS: PCP Internal Medicine; Visit Provider Obstetrics & Gynecology
DX: N83.299 Other ovarian cyst, unspecified side (principal)
CPT/HCPCS: 76830; 76856

== ENCOUNTER 2022-05-03 12:42 | Outpatient (REF) | payer OTHER, SELFPAY ==
--- NOTE | ~2022-05-03 | MM_ITS ---
EXAMINATION: MM SCREENING DIGITAL BREAST TOMOSYNTHESIS, BILATERAL CLINICAL INFORMATION: Screening. Asymptomatic. The lifetime risk of breast cancer based on the Tyrer-Cuzick Model is 9.2%. COMPARISON: Mammography: July 23, 2015 TECHNIQUE: Digital breast tomosynthesis is performed in both the craniocaudal and mediolateral oblique views along with computer-aided detection (CAD). Synthesized 2D images are generated from the tomosynthesis. FINDINGS: There are scattered areas of fibroglandular density (ACR BI-RADS breast composition Category b). There are no significant masses, abnormal calcifications, or other abnormalities. MM/MM tomosynthesis screening BI IMPRESSION: No significant changes ASSESSMENT: BI-RADS 1: Negative RECOMMENDATION: Routine annual mammography screening. This patient's information was entered into a reminder system with a target due date for their next mammogram.
== END 2022-05-03 12:43 | disposition home or self-care (01) ==
LOC: HO.MAMMO 12:42
PROVIDERS: PCP Internal Medicine; Visit Provider Obstetrics & Gynecology
DX: Z12.31 Encounter for screening mammogram for malignant neoplasm of breast (principal)
CPT/HCPCS: 77063; 77067

== ENCOUNTER 2022-05-05 11:52 | Day surgery (SDC) | payer OTHER, SELFPAY ==
[2022-04-29 11:12] VITALS: BMI 43.6
[2022-05-05] VITALS (17 sets, daily range): BP systolic 107–143; BP diastolic 72–88; PULSE 77–97; RESP 12–17; TEMP 36.4–36.8; O2SAT 94–99; BMI 44.6
[2022-05-05] MEDS: Lactated Ringers 1,000 ML 50 ML IVCONT (12:27)
--- NOTE | 2022-05-05 12:29 | MHC.SHP ---
Pre-Procedural Eval Section A Date of Service: 05/05/22 The patient is an INPATIENT: No Changes since office visit: No Cold of Flu in the past 2 weeks, No New Medical Problems, No Changes in Medication and No Patient answered all questions The History & Physical has been completed within 30 days and I have reviewed it.: Yes Section B Chief Complaint: Unilateral primary osteoarthritis, left knee Allergies: Allergies Allergy/AdvReac Type Severity Reaction Status Date / Time oxycodone [OXYCODONE] Allergy Intermediate RASH,SHAKES, Verified 05/05/22 12:27 shakiness, body shaking, tremors Plan I have reviewed the history and physical and performed a pertinent physical examination on my patient. No changes have occurred unless specified. Time Spent With Patient Time: Total time managing care of this patient today ____ minutes.
--- NOTE | 2022-05-05 12:57 | P.CONAN_ITS ---
HPI - Anesthesia Eval Consult details Narrative: 47 F for knee arthroscopy , left h/o neck radiation in 2019 . [facility] Active Problems Active Problems: All Active Problems (Updated 05/05/22 @ 12:00 by Aleja Ma, RN) Epidermal inclusion cyst (Acute) Nephrolithiasis (Acute) Shoulder pain, left (Acute) Migraine (Acute) Dawson angioma (Acute) COVID-19 virus infection (Acute) Anserine bursitis (Acute) Osteoarthritis of left knee (Acute) Headache (Acute) Hydronephrosis (Acute) Right lower quadrant pain (Acute) Malpositioned IUD (Acute) Complex ovarian cyst (Acute) Adenoma of right adrenal gland (Acute) Fatty liver (Acute) Impaired fasting glucose (Acute) Postsurgical hypothyroidism (Acute) Benign essential hypertension (Acute) Obesity (Acute) Hypercholesterolemia (Acute) History of thyroid cancer (Acute) Vitamin D deficiency (Acute) 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 (Acute) Family history of von Willebrand disease (Acute) Past Medical History Medical History (Updated 05/05/22 @ 12:00 by Aleja Ma RN) Acute pain Acute sinusitis Asthma Asthma exacerbation Benign essential hypertension Closed right ankle fracture COVID-19 vaccine administered Elevated LFTs Family history of von Willebrand disease History of renal calculi History of thyroid cancer Hypercholesterolemia Hypothyroid Impaired fasting glucose Kidney stone Knee injury Knee swelling Left knee pain 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 Lumbar disc herniation Memory deficit Migraine Obesity Ovarian cyst Pain management Patellar fracture Pericardial effusion Postsurgical hypothyroidism Remove/insert IUD Right flank pain Ureteral stone Vertigo Vitamin D deficiency Functional capacity: independent ambulation Family History Family History Daughter Von Willebrand disease Other Asthma Diabetes Emphysema of lung Family history of bladder cancer Family history of breast cancer Family history of lung cancer Family history of prostate cancer Family history of problems with anesthesia: No Surgical History Surgical History History of ankle surgery History of back surgery History of bladder surgery History of section History of cholecystectomy History of pubovaginal sling History of thyroid surgery Hx of cystoscopy Hx of tubal ligation Tubal ligation status History of Problems with Anesthesia: No Social History Social History Household Members: Family and Children Housing: House Do you presently have visiting nurse or other home services: No Alcohol intake: never Patient Tobacco Use Status: Never used Tobacco e-Cigarette/Vaping Use: Never Used Second Hand Smoke Exposure: No service: No Current occupational status: employed 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 Cognitive needs: No Hearing needs: No Vision needs: No Meds Allergies Allergy/AdvReac Type Severity Reaction Status Date / Time oxycodone [OXYCODONE] Allergy Intermediate RASH,SHAKES, Verified 05/05/22 12:27 shakiness, body shaking, tremors Active Medications: Current Medications Lactated Ringer's (Lr) 1,000 mls @ 50 mls/hr IVCONT .Q20H LUZ MARIA Last Admin: 05/05/22 12:27 Dose: 50 mls/hr Home Medications Medication Instructions Recorded Confirmed Last Taken Type levonorgestrel 20 mcg/24 hours (8 intrauterine 04/14/22 Unknown History yrs) 52 mg intrauterine device (Mirena) Exam Exam Date and Time: May 05, 2022 1257 Height,Weight and Vital Signs: Height 5 ft 1 in Weight 107.048 kg Last Vital Signs Temp 97.6 F 05/05/22 12:14 Pulse 87 05/05/22 12:14 Resp 17 05/05/22 12:14 BP 143/88 H 05/05/22 12:14 Pulse Ox 98 05/05/22 12:14 O2 Del Method 05/05/22 12:14 Airway Mallampati Class: IV TM Dist: >3cm Denture: Upper Loose/Missing/Broken Teeth: Yes (chipped teeth lower , poor dentition) Heart: S1,S2 Lungs: distant breath sounds Assessment and Plan Assessment Anesthesia Assessment: Anesthesia Plan Discussed and Chart Reviewed Final Anesthetic Review Family History of Problems with Anesthesia: No History of Problems with Anesthesia: No NPO: Yes ASA Class: III Final Preanesthetic Review: Meds/Allgs Chart Reviewed, Consent Obtained/Reviewed and Anes Risks/Benef Reviewed Patient Risk: Intermediate Procedure Risk: Intermediate Anesthetic Plan Anesthetic Plan: GA Disposition: Standard PACU
--- NOTE | 2022-05-05 14:03 | P.BOP_ITS ---
Brief Operative Note Date of Service: 05/05/22 Pre-op diagnosis: left knee MMT and left knee OA Post-op diagnosis: same Procedure: Left knee with medial and lateral partial meniscectomy and chondroplasty Surgeon: Ed Butt MD Anesthesia: GETA Was an Industrial Psychology Teacher used for this Procedure?: No Estimated blood loss (mL): 0 Tourniquet time (min): 35 IV fluids (mL): 750 Pathology: none sent Condition: stable Disposition: PACU
[2022-05-05] MEDS: fentaNYL citrate/PF 100 MCG/2 ML VIAL 25 MCG IVPUSH ×2 (14:50→15:05)
[2022-05-05] MEDS: Ketorolac Tromethamine 15 MG/ML VIAL IVPUSH (14:59)
[2022-05-05] MEDS: HYDROmorphone HCl 0.5 MG/0.5 ML SYRINGE 0.25 MG IVPUSH (15:21)
--- NOTE | 2022-05-13 12:08 | P.OP_ITS ---
Operative Note Operative Note Date of Service: 05/13/22 Narrative: Date of Service: 05/05/22 Pre-op diagnosis: left knee MMT and left knee OA Post-op diagnosis: same Procedure: Left knee with medial and lateral partial meniscectomy and chondroplasty Surgeon: Ed Butt MD Anesthesia: GETA Was an [employer] Manager used for this Procedure?: No Estimated blood loss (mL): 0 Tourniquet time (min): 35 IV fluids (mL): 750 Pathology: none sent Condition: stable Disposition: PACU Procedure in detail: Patient was brought to the operating room placed supine on the arthroscopic table and prepped and draped in standard sterile fashion. A time-out was called to identify proper site proper procedure proper surgeon and IV antibiotics per weight were administered. I began by exsanguinating the limb and insufflating tourniquet to 300 mm Hg. Then made a standard anterolateral stab incision. knee was insufflated with water and 30 degree arthroscope was placed. There was grade /23 fibrillations of the cetral facet of the patella and Grade 3/4 changes to the trochlea of the femur. The suprapatellar pouch was otherwise clean and the gutters were clean. I descended into the medial compartment where I made my medial portal under direct visualization. There was obvious of complex tear of the body and posterior horn of the medial meniscus. Root was intact and there was grade extensive grade 2/3 changes throughout the medial femoral condyles . I used a combination of biter shaver and cautery to remove unstable portions of the meniscus. Approximately 30% of the meniscal volume was removed. Once I was satisfied with this the ACL was examined and found to be intact and the lateral compartment was entered. There was a small degenerative peripheral tearing of the lateral meniscus and this was debrided with a shaver removing approximately 10% of the lateral meniscal volume. Cartilagenous surfaces were normal. I then removed all instrumentation and closed the portals with skin glue. 25 mL of 2% Marcaine with epinephrine was injected into the joint and the surrounding soft tissues. Patient was then placed in sterile dressing extubated brought recovery room stable condition. There were no known complications.
== END 2022-05-05 17:26 | disposition home or self-care (01) ==
LOC: HO.SSS 11:53
PROVIDERS: PCP Internal Medicine; Visit Provider Orthopaedic Surgery
PROC: (CPT 29870; principal; 2022-05-05 14:10)
DX: S83.232A Complex tear of medial meniscus, current injury, left knee, initial encounter (principal); S83.262A Peripheral tear of lateral meniscus, current injury, left knee, initial encounter; M17.12 Unilateral primary osteoarthritis, left knee; M25.562 Pain in left knee; M23.92 Unspecified internal derangement of left knee; M85.662 Other cyst of bone, left lower leg; X58.XXXA Exposure to other specified factors, initial encounter; Y93.9 Activity, unspecified; Y92.9 Unspecified place or not applicable; Y99.8 Other external cause status; J45.909 Unspecified asthma, uncomplicated; I10 Essential (primary) hypertension; E78.00 Pure hypercholesterolemia, unspecified; R73.01 Impaired fasting glucose; E66.9 Obesity, unspecified; Z68.41 Body mass index [BMI] 40.0-44.9, adult; E55.9 Vitamin D deficiency, unspecified; Z87.81 Personal history of (healed) traumatic fracture; Z85.850 Personal history of malignant neoplasm of thyroid; Z87.442 Personal history of urinary calculi; Z98.890 Other specified postprocedural states; Z88.8 Allergy status to other drugs, medicaments and biological substances
CPT/HCPCS: 29880; J0131; J0171; J0690; J1170; J1885; J2250; J2795; J3010

== ENCOUNTER → 2022-05-10 10:29 | Outpatient (BNVA) | payer OTHER, SELFPAY | PROVIDERS: Visit Provider Physician Assistant | DX: Z13.89 Encounter for screening for other disorder (principal) ==

== ENCOUNTER → 2022-05-18 09:16 | Outpatient (BNVA) | payer OTHER, SELFPAY | PROVIDERS: Visit Provider Physician Assistant | DX: Z13.89 Encounter for screening for other disorder (principal) ==

== ENCOUNTER → 2022-05-24 13:58 | Outpatient (BNVA) | payer OTHER, SELFPAY | PROVIDERS: Visit Provider Physician Assistant | DX: Z13.89 Encounter for screening for other disorder (principal) ==

== ENCOUNTER → 2022-05-31 11:24 | Outpatient (BNVA) | payer OTHER, SELFPAY | PROVIDERS: Visit Provider Obstetrics & Gynecology | DX: N83.201 Unspecified ovarian cyst, right side (principal); N83.202 Unspecified ovarian cyst, left side; T83.32XA Displacement of intrauterine contraceptive device, initial encounter | CPT/HCPCS: 99212 ==

== ENCOUNTER → 2022-06-07 10:54 | Outpatient (BNVA) | payer OTHER, SELFPAY | PROVIDERS: Visit Provider Physician Assistant | DX: M17.12 Unilateral primary osteoarthritis, left knee (principal) | CPT/HCPCS: 99212 ==

== ENCOUNTER 2022-06-10 14:14 | Outpatient (REF) | payer OTHER, SELFPAY ==
--- NOTE | ~2022-06-10 | US_ITS ---
EXAMINATION: US PELVIC AND TRANSVAGINAL CLINICAL INFORMATION: Right ovarian cyst. COMPARISON: Prior pelvic ultrasound 04/26/[address] abdomen and pelvis 04/02/2022. TECHNIQUE: Ultrasound of the pelvis is performed using both transabdominal and transvaginal transducers along with Doppler. Transvaginal imaging is performed due to inadequate visualization transabdominally. FINDINGS: UTERUS: The uterus is anteverted and measures 9.9 x 5.3 x 6.7 cm. A scar is seen. The double wall endometrial thickness is 0.4 mm. An IUD is present in suboptimal position in the lower uterine segment. The uterus is smooth in contour and has normal myometrial echogenicity. A single mural fibroid is noted near the right cornu measuring 1.6 x 1.2 x 1.8 cm. ADNEXA: Both ovaries are visualized. There is normal color flow to the adnexa. There is no ovarian torsion. There is no pelvic ascites or fluid collection. Right ovary measures 4.1 x 3.3 x 1.9 cm for a volume of 13.5 mL. There is a cyst adjacent to or exophytic from the ovary measuring 7.6 x 7.8 x 6.6 cm. Findings were similar at the time of the prior 04/26/2022 study. Left ovary measures 5.1 x 4.0 x 3.7 cm for a volume of 48.4 mL. Previously, this was significantly larger. There is a 1.5 cm cyst present which has decreased in size since the prior 04/26/2022 study.. US/US pelvic and transvaginal IMPRESSION: 1. An IUD is present in suboptimal position in the lower uterine segment. 2. Small uterine fibroid. 3. Bilateral ovarian cysts as described above.
== END 2022-06-10 14:15 | disposition home or self-care (01) ==
LOC: HO.US 14:14
PROVIDERS: Visit Provider Obstetrics & Gynecology
DX: N83.202 Unspecified ovarian cyst, left side (principal); N83.201 Unspecified ovarian cyst, right side
CPT/HCPCS: 76830; 76856

== ENCOUNTER 2022-06-17 15:51 | Outpatient (REF) | payer OTHER, SELFPAY ==
--- NOTE | ~2022-06-17 | MR_ITS ---
EXAMINATION: MR PELVIS WITHOUT AND WITH CONTRAST CLINICAL INFORMATION: Ovarian cyst COMPARISON: Prior studies including the 06/10/[address] scan TECHNIQUE: Multiple routine MRI sequences through the pelvis were obtained on a high-field 1.5 Brittnee MRI. 10 mL of Gadavist intravenous contrast was utilized incident. FINDINGS: Uterus is anteroverted measuring 10.3 x 5.4 x 6.7 cm in size. IUD artifact is seen within the thin endometrial cavity. The junctional zone is ill-defined and thickened diffusely measuring up to 1.6 cm in thickness consistent with a diffuse adenomyosis. scar seen along the anterior lower uterine segment. Simple appearing 7.8 x 7.6 x 6.2 cm right adnexal cyst is noted. This corresponds with the cyst that was seen on prior CT scans up to the oldest available 04/07/2016 CT scan. This measured 7.4 cm in maximal diameter. The relative stability since 2017 as well as the simple appearance suggests a indolent process. The majority of the right ovary is seen posterior to this larger adnexal cyst and a tiny follicle seen within the right ovary otherwise. Mixed signal is present within the contralateral left ovary with several small follicles noted some of which demonstrate heterogeneously increased T1 signal suggesting blood products. The left ovary measures 5.5 x 2.9 x 5.0 cm in size. No significant free fluid in the dependent pelvis. Bladder is decompressed and otherwise unremarkable. No abnormality seen in the visualized bowel. Lower lumbar spine hardware artifact noted MR/MR pelvis wo/w con IMPRESSION: 1. Simple appearing 7.8 cm right adnexal cyst. The simple appearing structure and relative stability since the oldest available 04/07/2016 CT scan suggests an indolent process. 2. Mixed signal within the contralateral left ovary with several small follicles noted some of which demonstrate increased T1 signal suggesting blood products. Again more likely physiologic changes with a few tiny hemorrhagic cysts/follicles noted 3. IUD artifact within the thin endometrial cavity. 4. Diffuse thickening of the junctional zone consistent with a diffuse adenomyosis.
== END 2022-06-17 15:52 | disposition home or self-care (01) ==
LOC: HO.MRI 15:51
PROVIDERS: Visit Provider Obstetrics & Gynecology
DX: N83.299 Other ovarian cyst, unspecified side (principal); T83.32XA Displacement of intrauterine contraceptive device, initial encounter
CPT/HCPCS: 72197; A9585

== ENCOUNTER 2022-06-23 08:50 | Outpatient (REF) | payer OTHER, SELFPAY ==
--- NOTE | ~2022-06-23 | US_ITS ---
EXAMINATION: US RETROPERITONEAL LIMITED (RENAL ONLY) CLINICAL INFORMATION: Calculus of kidney. 3 mm right kidney stone on CT scan. COMPARISON: CT abdomen and pelvis 04/02/2022. Renal ultrasound 01/04/2017 and 07/16/2016. TECHNIQUE: Real-time imaging of the kidneys. FINDINGS: RIGHT KIDNEY: 13.0 x 6.5 x 6 cm (SAG x AP x TRV). The kidney is normal in size, contour, and echogenicity. Renal cortical thickness is normal. Three stones measuring 5 x 4 x 8 mm, 5 x 3 x 4 mm and 9 x 6 x 6 mm. No focal parenchymal lesions or hydronephrosis. LEFT KIDNEY: 13.8 x 7.3 x 6.6 cm (SAG x AP x TRV). The kidney is normal in size, contour, and echogenicity. Renal cortical thickness is normal. One stone measuring 4 x 5 x 6 mm. No focal parenchymal lesions or hydronephrosis. US/US renal BI IMPRESSION: Bilateral renal stones.
== END 2022-06-23 08:51 | disposition home or self-care (01) ==
LOC: HO.US 08:50
PROVIDERS: PCP Internal Medicine; Visit Provider Urology
DX: Z30.432 Encounter for removal of intrauterine contraceptive device (principal); N20.0 Calculus of kidney; N93.9 Abnormal uterine and vaginal bleeding, unspecified; N83.201 Unspecified ovarian cyst, right side; N83.202 Unspecified ovarian cyst, left side; T83.32XA Displacement of intrauterine contraceptive device, initial encounter
CPT/HCPCS: 58100; 58301; 76775; 81025; 99212

== ENCOUNTER 2022-06-23 12:25 | Outpatient (REF) | payer OTHER, SELFPAY | END 2022-06-23 12:26 | disposition home or self-care (01) | LOC: HO.LNP 12:25 | PROVIDERS: Visit Provider Obstetrics & Gynecology | DX: N93.9 Abnormal uterine and vaginal bleeding, unspecified (principal) | CPT/HCPCS: 88305 ==

== ENCOUNTER → 2022-06-30 13:41 | Outpatient (BNVA) | payer OTHER, SELFPAY | PROVIDERS: PCP Internal Medicine; Visit Provider Urology | DX: N20.0 Calculus of kidney (principal) | CPT/HCPCS: 99212 ==

== ENCOUNTER → 2022-07-05 10:16 | Outpatient (BNVA) | payer OTHER, SELFPAY | PROVIDERS: PCP Internal Medicine; Visit Provider Physician Assistant | DX: M17.12 Unilateral primary osteoarthritis, left knee (principal); Z96.652 Presence of left artificial knee joint | CPT/HCPCS: 99212 ==

== ENCOUNTER 2022-07-29 16:39 | Outpatient (REF) | payer OTHER, SELFPAY ==
[2022-07-29 17:25] LABS: Influenza A PCR NEGATIVE (Negative); Influenza B PCR NEGATIVE (Negative); Resp Syncy Virus RNA Qual PCR NEGATIVE (Negative); SARS COV2 PCR INHOUSE NEGATIVE (Negative)
== END 2022-07-29 16:40 | disposition home or self-care (01) ==
LOC: HO.LNP 16:39
PROVIDERS: Visit Provider Internal Medicine
DX: Z20.822 Contact with and (suspected) exposure to COVID-19 (principal); R09.89 Other specified symptoms and signs involving the circulatory and respiratory systems
CPT/HCPCS: 0241U

== ENCOUNTER → 2022-08-02 10:09 | Outpatient (BNVA) | payer OTHER, SELFPAY | PROVIDERS: PCP Internal Medicine; Visit Provider Physician Assistant | DX: Z47.89 Encounter for other orthopedic aftercare (principal) | CPT/HCPCS: 99212 ==

== ENCOUNTER 2022-08-04 09:16 | Outpatient (REF) | payer OTHER, SELFPAY ==
[2022-08-04 15:45] LABS: CT PCR NOT DETECTED (Not Detect.); NG PCR NOT DETECTED (Not Detect.)
== END 2022-08-04 09:17 | disposition home or self-care (01) ==
LOC: HO.LNP 09:16
PROVIDERS: PCP Internal Medicine; Visit Provider Obstetrics & Gynecology
DX: Z30.430 Encounter for insertion of intrauterine contraceptive device (principal); N93.9 Abnormal uterine and vaginal bleeding, unspecified; N83.209 Unspecified ovarian cyst, unspecified side
CPT/HCPCS: 0353U; 58300; 81025; 99212; J7298

== ENCOUNTER 2022-08-09 11:00 | Outpatient (RCR) | payer OTHER, SELFPAY ==
--- NOTE | 2022-05-10 16:23 | MHC.PT.EP ---
[facility] [place] Office [place] Office [place] Office [address] Ezio Aldana [address] [phone] F: [phone] F: [phone] F: [phone] F: [phone] Physical Therapy Plan of Care Date of Evaluation: Date of Surgery: 05/05/22 Diagnosis: Left knee with medial and lateral partial meniscectomy and chondroplasty Assessment: MARY IS A PLEASANT 47 YO FEMALE WHO PRESENTS POD #5 FOR ORTHOPEDIC FOLLOW UP AND PT EVALUATION. UPON EXAM SHE DEMONSTRATES THE EXPECTED IMPAIRMENTS OF DECREASED ROM, DECREASED STRENGTH, ALTERED POSTURE AND POSITIONING,ALTERED GAIT AND BALANCE, AND INCREASED PAIN AND EDEMA. FUNCTIONAL LIMITATIONS INCLUDE DECREASED ABILITY TO PERFORM HOMEMAKING AND SELF-CARE TASKS, DECREASED ABILITY TO PERFORM WALKING, RUNNING, JUMPING AND SQUATTING, INABILITY TO DRIVE AND PERFORM WORK TASKS, DECREASED PARTICIPATION IN COMMUNITY AND RECREATIONAL ACTIVITIES AND DISRUPTED SLEEP. THE Pt IS A GOOD CANDIDATE FOR SKILLED PT DUE TO AGE, POTENTIAL REMEDIATION OF IMPAIRMENTS, TYPICAL DISEASE/CONDITION PROGRESSION AND PROGNOSIS, COMORBIDITIES, AND MOTIVATION. PT WOULD BENEFIT FROM TAILORED PROGRAM OF THERAPEUTIC ACTIVITIES, FUNCTIONAL TRAINING, GAIT TRAINING, POSTURAL EDUCATION, NEUROMUSCULAR RE-EDUCATION, AND MODALITIES NEEDED. Frequency and Duration: The patient will be seen 2 x week for 4 weeks Short Term Goals: Initiate HEP and promote self management of symptoms Clinical Informatics Specialist Goals: TO DEMONSTRATE FULL KNEE ROM, EQUAL ERNESTO TO DEMONSTRATE FULL LE STRENGTH, EQUAL ERNESTO TO ASCEND AND DESCEND STAIRS WITH RECIPROCAL GAIT WITHOUT PAIN GREATER THAN 2/10 TO AMBULATE AD MARCO A ON LEVEL AND UNEVEN SURFACES FOR FITNESS WITHOUT PAIN GREATER THAN 2/10 TO PERFORM FULL FUNCTIONAL SQUAT WITHOUT SUBSTITUTION Treatment Plan: Modalities to reduce pain, spasms and effusion. Manual therapy to restore motion and function. Therapeutic exercise to improve strength and flexibility. Neuromuscular re-education for posture and balance. Therapeutic activities to return to functional activities of daily living. Electronically signed by: Chelly Newton PT, DPT Please sign and return to therapist. Thank you for your referral.
--- NOTE | 2022-09-30 07:55 | MHC.PT.DC ---
[facility] [place] Office [place] Office [place] Office [address] Ezio Aldana [address] [phone] F: [phone] F: [phone] F: [phone] F: [phone] Physical Therapy Discharge Report Diagnosis: Left knee with medial and lateral partial meniscectomy and chondroplasty Date of Surgery: 05/05/22 Date of Evaluation: 05/10/22 Date of Discharge: 08/16/22 Treatments to Date: 19 Cancellations to Date: 2 No Shows to Date: 0 Discharge Status: Improved Function Independent with HEP Patient Elected to Stop Discharge Summary: Last scheduled visit was cancelled, pt was going away and was to call upon return to schedule prn but we have not heard from her. She does have an extensive home program that she can continue with independently. Electronically signed by: Chelly Newton PT DPT Please sign and return to therapist. Thank you for your referral.
== END 2022-09-30 07:55 | disposition home or self-care (01) ==
LOC: HO.PT 11:00
PROVIDERS: Visit Provider Physician Assistant
DX: M17.12 Unilateral primary osteoarthritis, left knee (principal)
CPT/HCPCS: 97014; 97110; 97116; 97140; 97161; 97530

== ENCOUNTER 2022-08-12 09:09 | Outpatient (REF) | payer OTHER, SELFPAY ==
--- NOTE | ~2022-08-12 | CT_ITS ---
EXAMINATION: CT ABDOMEN AND PELVIS WITHOUT CONTRAST CLINICAL INFORMATION: Calculus of kidney COMPARISON: CT abdomen and pelvis without contrast. TECHNIQUE: Multidetector volumetric imaging was performed from the superior aspect of the liver through the pubic symphysis. Sagittal and coronal reformatted images were obtained on the technologist's workstation. This CT examination was performed using dose optimization techniques as appropriate, variously including the following: *Automated exposure control *Adjustment of mA and/or kV according to patient size (this includes techniques or standardized protocols for targeted exams where dose is matched to indication/reason for exam; i.e. extremities or head) *Use of iterative reconstruction technique DLP: 864 mGy-cm FINDINGS: LUNG BASES: The visualized lung bases are unremarkable. LIVER, GALLBLADDER, AND BILIARY TREE: The liver is homogeneous in density, normal contour and size. No focal lesion or intrahepatic ductal dilatation seen. The gallbladder has been surgically removed. PANCREAS: Unremarkable. SPLEEN: Unremarkable. ADRENAL GLANDS: Unremarkable. KIDNEYS AND URETERS: The kidneys are normal in size, shape, and attenuation. No hydronephrosis, hydroureter, or calculi seen. No perinephric stranding. There is a 5 mm and 2 mm radiopaque calculi, lower pole right kidney, and a 2 mm radiopaque calculi, lower pole left kidney. There is no caliectasis or hydronephrosis. The right lower pole calculi is 16 cm from the right posterior skin line. BLADDER: Unremarkable. GASTROINTESTINAL TRACT: There is scattered stool and gas seen throughout the colon without distention. The small bowel loops are normal caliber. Appendix is normal caliber. ABDOMINAL WALL: No significant hernia is appreciated. LYMPH NODES: Normal. VASCULAR: Unremarkable. PELVIC VISCERA: The uterus is anteverted with an IUD well located within the endometrial canal. There is a large right adnexal lesion measuring 23 Hounsfield units, anterior and superior to the uterus. It measures 7.0 x 7.8 x 7.0 cm. There are several phleboliths in the pelvis. No free fluid seen. OSSEOUS STRUCTURES: There is maintained lumbar lordosis with L5-S1 disc prostheses and posterior hardware for fusion. Mild degenerative disc changes L4-L5 disc level with ventral spondylosis lower disc levels are noted. CT/CT abdomen pelvis wo IV con IMPRESSION: 1. Bilateral nephrolithiasis without caliectasis or hydronephrosis. 2. Complex right adnexal cyst likely paraovarian or exophytic ovarian cyst. 3. Anteverted uterus with IUD well located within the endometrial canal. Fleischner guidelines were followed.
== END 2022-08-12 09:10 | disposition home or self-care (01) ==
LOC: HO.CT 09:09
PROVIDERS: PCP Internal Medicine; Visit Provider Urology
DX: N20.0 Calculus of kidney (principal)
CPT/HCPCS: 74176

== ENCOUNTER → 2022-09-06 09:44 | Outpatient (BNVA) | payer OTHER, SELFPAY | PROVIDERS: PCP Internal Medicine; Visit Provider Physician Assistant | DX: Z98.890 Other specified postprocedural states (principal) | CPT/HCPCS: 20610; 99212; J1040 ==

== ENCOUNTER 2022-10-01 09:29 | Emergency (ER) | payer MEDICAID, SELFPAY ==
[2022-10-01 09:31] VITALS: BP 136/84; PULSE 80; RESP 19; TEMP 36.6; O2SAT 98; BMI 42.9
--- NOTE | 2022-10-01 11:23 | ED.GENADULT ---
HPI - General Adult General Chief complaint: Extremity Injury, Lower Stated complaint: R knee injury Time Seen by Provider: 10/01/22 10:30 Source: patient Mode of arrival: ambulatory Limitations: no limitations History of Present Illness HPI narrative: 47-year-old female with history of arthritis presents to the ED for right knee pain. Patient states she twisted her right knee going down the stairs 2 weeks ago and ever since has had pain and now has slight swelling. Patient was evaluated at Urgent case any form she might have torn a tendon in her knee. Patient denies falling to the ground or hitting head. Patient denies any warmth or redness or severe swelling from right knee. Patient states no fever, chills, chest pain, shortness of breath, leg swelling, or calf pain. Patient denies any other complaints. Related Data Previous Rx's Medication Instructions Recorded sumatriptan succinate 100 mg tablet 100 mg PO DAILY PRN for migraine 12/07/20 #10 tabs blood pressure monitor #1 ea 03/05/21 levothyroxine 100 mcg capsule 100 mcg PO DAILY 90 days #90 caps 08/31/21 (Tirosint) levothyroxine 150 mcg capsule 150 mcg PO DAILY 90 days #90 caps 08/31/21 (Tirosint) pyridoxine (vitamin B6) 100 mg 100 mg PO DAILY 90 days #90 tabs 04/21/22 tablet cholecalciferol (vitamin D3) 25 25 mcg PO DAILY 90 days #90 tabs 05/02/22 mcg (1,000 unit) tablet lisinopril 40 mg tablet 40 mg PO DAILY 30 days #90 tabs 05/13/22 diclofenac sodium 75 mg 75 mg PO BID PRN for pain #60 tabs 06/14/22 tablet,delayed release amlodipine 5 mg tablet 5 mg PO DAILY #30 tabs 07/20/22 albuterol sulfate 90 mcg/actuation 2 puff inhalation Q6H PRN 07/23/22 aerosol inhaler (ProAir HFA) shortness of breath or wheezing 30 days #8.5 grams prednisone 20 mg tablet See Rx Instructions PO ONCE 12 07/29/22 days #17 tabs cholestyramine-aspartame 4 gram 4 g PO BID #231 grams 08/19/22 oral powder (Prevalite) diclofenac sodium 1 % topical gel 4 g topical QID #100 grams 09/15/22 (Voltaren Arthritis Pain) meclizine 25 mg tablet 25 mg PO TID PRN for dizziness #90 09/18/22 tabs ketorolac 10 mg tablet 10 mg PO QID PRN pain 5 days #20 10/01/22 tabs levothyroxine 25 mcg capsule 25 mcg PO DAILY 90 days #90 caps 10/01/22 (Tirosint) prednisone 20 mg tablet 40 mg PO DAILY 5 days #10 tabs 10/01/22 Allergies Allergy/AdvReac Type Severity Reaction Status Date / Time oxycodone [OXYCODONE] Allergy Intermediate RASH,SHAKES, Verified 10/01/22 09:30 shakiness, body shaking, tremors Review of Systems Review of Systems: Right knee pain Yes all other systems are reviewed and are negative [facility] Past Medical History Medical History Acute pain Acute sinusitis Asthma Asthma exacerbation Benign essential hypertension Closed right ankle fracture COVID-19 vaccine administered Elevated LFTs Family history of von Willebrand disease History of renal calculi History of thyroid cancer Hypercholesterolemia Hypothyroid Impaired fasting glucose Kidney stone Knee injury Knee swelling Left knee pain 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 Lumbar disc herniation Memory deficit Migraine Obesity Ovarian cyst Pain management Patellar fracture Pericardial effusion Postsurgical hypothyroidism Remove/insert IUD Right flank pain Ureteral stone Vertigo Vitamin D deficiency Surgical History History of ankle surgery History of back surgery History of bladder surgery History of section History of cholecystectomy History of pubovaginal sling History of thyroid surgery Hx of cystoscopy Hx of tubal ligation Family History Family History Daughter Von Willebrand disease Other Asthma Diabetes Emphysema of lung Family history of bladder cancer Family history of breast cancer Family history of lung cancer Family history of prostate cancer Social History Social History Household Members: Family and Children Housing: House Do you presently have visiting nurse or other home services: No Alcohol intake: never Patient Tobacco Use Status: Never used Tobacco e-Cigarette/Vaping Use: Never Used Second Hand Smoke Exposure: No Advance Directives: Yes Advance Directives Information Provided: Yes Advance Directives on File: No service: No Current occupational status: employed 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 Cognitive needs: No Hearing needs: No Vision needs: No Physical Exam ED Vital Signs: Vital Signs - 24 hr 10/01/22 09:31 Temperature 98 F Pulse Rate 80 Respiratory Rate 19 Blood Pressure 136/84 Pulse Oximetry 98 Oxygen Delivery Method Room Air BMI result Body Mass Index 42.9 Const General: cooperative, healthy appearing, comfortable, no acute distress, well developed, alert, awake and Physically active Orientation/consciousness: oriented to person, oriented to place, oriented to time and patient oriented x3 HENMO Head: Yes normal to inspection, Yes No palpable skull fracture present, Yes normocephalic, Yes atraumatic and No abrasion Eyes General: appearance normal, both eyes and all related structures Neck Neck: Yes normal visual inspection, Yes full ROM, Yes no lymphadenopathy, Yes no meningeal signs, Yes trachea midline, Yes supple, No anterior neck swelling and No tender Chest Chest palpation & inspection: normal inspection of the chest and normal palpation of entire chest wall Resp Effort & Inspection: normal respiratory effort and able to speak in complete sentences Auscultation: clear to auscultation bilaterally Cardio Jugular venous distension: no JVD Heart sounds: S1 normal heart sound present and S2 normal heart sound present GI Inspection: Yes normal to inspection and No abdominal wall ecchymosis Palpation (GI): Soft to palpation, not firm, nontender, no guarding and not rigid General: No CVA tenderness and Yes no CVA tenderness Back/Spine/Pelvis Back: no CVA tenderness, No CVA tenderness and No back tenderness Skin General skin exam: no rashes or lesions noted and elasticity normal Neuro General: oriented to person, oriented to place, oriented to time, patient oriented x3, gait normal, tone normal, moves all extremities, Normal light touch and pain sensation, no meningeal signs, no focal motor deficits, CN's II-XI intact bilaterally and normal sensation to monofilament Extrem General: Yes normal to inspection and Yes full ROM Knee images: 1. positive for tenderness on palpation and slight swelling. Negative for erythema, warmth, or knee stiffness. Patient has complete range of motion of knee. Negative for erythema, swelling or tenderness of leg/calf. Rest of extremity normal. Motor/ neuro/vascular exam intact. Psych Appearance: grossly normal, well kempt and not disheveled Medications Administered Discontinued Medications Generic Name Dose Route Start Last Admin Trade Name Freq PRN Reason Stop Dose Admin Ketorolac Tromethamine 30 mg 10/01/22 10:53 10/01/22 11:20 Ketorolac Tromethamine 30 Mg/Ml Vial IM 10/01/22 10:54 30 mg ONCE ONE Administration Prednisone 60 mg 10/01/22 10:53 10/01/22 11:24 Prednisone 20 Mg Tablet PO 10/01/22 10:54 60 mg ONCE ONE Administration Medical Decision Making Medical Decision Making MDM Narrative: 47-year-old female presents to the ED for right knee pain after twisting knee 2 weeks ago. patient denies any new trauma since then, redness, warmth, stiffness, leg swelling, calf pain, fever, or chills. Right lower extremity exam negative for signs of sepsis, DVT, cellulitis, compartment syndrome, or fracture. Right knee x-ray only shows arthritis is small amount of fluid and suprapatellar osteophyte. Patient placed in Ariel wrap. Patient discharged with NSAIDs and Toradol. Patient informed to not take diclofenac due to toradol prescription being a NSAID Differential Diagnosis Differential Diagnoses: The differential diagnosis associated with the presentation includes ( Sepsis knee, cellulitis, compartment syndrome, DVT, Calderon cyst, tendon/ligament/meniscus tear, fracture) Admission/Observation Consideration of admission/observation: Escalation of care including admission/observation considered Independent Interpretation I performed an independent interpretation of an: Plain X-Ray Radiology Impression Discussion of test interpretation with radiology: I have reviewed the radiologist's reading. Prescription Management I considered prescription management with: Pain Medication and Other (prednisone) Discharge Plan Discharge Clinical Impression: Right knee sprain, Arthralgia of knee, right Patient Disposition: Home, Self-Care Instructions: Knee Sprain (ED), Swollen Knee Joint (ED), Arthralgia (ED) Additional Instructions: return to the ED immediately for any redness, warmth, stiffness, leg swelling, calf pain, chest pain, shortness of breath, red streaks, fever, chills, or any other concerning symptoms. Please follow-up with primary care provider. Please follow-up with orthopedic surgeon for possible MRI. Do not take diclofenac while you are taking ketorolac. Stop taking diclofenac Prescriptions: New ketorolac 10 mg tablet 10 mg PO QID PRN (Reason: pain) 5 Days Qty: 20 0RF Rx Instructions: patient received 30mg IM toradol in the ED prednisone 20 mg tablet 40 mg PO DAILY 5 Days Qty: 10 0RF No Action sumatriptan succinate 100 mg tablet 100 mg PO DAILY PRN (Reason: for migraine) Qty: 10 2RF levothyroxine [Tirosint] 100 mcg capsule 100 mcg PO DAILY 90 Days Qty: 90 3RF Rx Instructions: 100 mcg + 150 mcg + 25 mcg. daily dose is 275 mcg levothyroxine [Tirosint] 150 mcg capsule 150 mcg PO DAILY 90 Days Qty: 90 3RF Rx Instructions: 100 mcg + 150 mcg + 25 mcg = 275 mcg QD cholecalciferol (vitamin D3) 25 mcg (1,000 unit) tablet 25 mcg PO DAILY 90 Days Qty: 90 3RF lisinopril 40 mg tablet 40 mg PO DAILY 30 Days Qty: 90 3RF diclofenac sodium 75 mg tablet,delayed release (DR/EC) 75 mg PO BID PRN (Reason: for pain) Qty: 60 0RF amlodipine 5 mg tablet 5 mg PO DAILY Qty: 30 2RF Prevalite 4 gram powder 4 g PO BID Qty: 231 3RF Rx Instructions: administer w/meal; avoid other meds within 1hr before or 4-6hr after dose meclizine 25 mg tablet 25 mg PO TID PRN (Reason: for dizziness) Qty: 90 1RF levothyroxine [Tirosint] 25 mcg capsule 25 mcg PO DAILY 90 Days Qty: 90 3RF Rx Instructions: 100 +150 +25 mcg = 275 mcg (DME) blood pressure monitor Kit See Rx Instructions .ROUTE .MEDSUPPLY Qty: 1 0RF Rx Instructions: As directed albuterol sulfate [ProAir HFA] 90 mcg/actuation HFA aerosol inhaler 2 puff inhalation Q6H PRN (Reason: shortness of breath or wheezing) 30 Days Qty: 8.5 3RF diclofenac sodium [Voltaren Arthritis Pain] 1 % gel 4 g topical QID Qty: 100 1RF Rx Instructions: apply to single knee, ankle, foot; for foot includes sole/toes/top of foot pyridoxine (vitamin B6) 100 mg tablet 100 mg PO DAILY 90 Days Qty: 90 3RF prednisone 20 mg tablet See Rx Instructions PO ONCE 12 Days Qty: 17 0RF Rx Instructions: PO once; 3 tabs for 2 days, then 2 tabs for 3 days, then 1 tab for 3 days, then half tab for 4 days Stand Alone Forms: Work/School Release Interventions: ED Discharge Assessment Last Done: 10/01/22 11:41 Discharge Date/Time: 10/01/22 11:50 Print Language: Wolof
== END 2022-10-01 11:50 | disposition home or self-care (01) ==
PROVIDERS: Emergency Provider Emergency Medicine Emergency Medical Services; PCP Internal Medicine
DX: M25.561 Pain in right knee (principal); M25.461 Effusion, right knee; Z79.899 Other long term (current) drug therapy
CPT/HCPCS: 73562; 73564; 96372; 99283; 99284; J1885

== ENCOUNTER 2022-10-18 13:39 | Outpatient (AMB) | payer OTHER, SELFPAY ==
[2022-10-18 14:06] VITALS: BMI 42.9
--- NOTE | 2022-10-18 14:06 | MHC.OFFVIS ---
Intake Vital Signs 10/18/22 14:06 Height 5 ft 1 in Weight 227 lb BMI 42.9 Intake Visit Reasons: OV - left knee , 05/05/22 NE Intake Note: Alicia is a 47 year old female who presents today for a ROM check s/p left knee , 05/05/22 NE. 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 She states that she is unable to go up any stairs. Allergies oxycodone [OXYCODONE] Allergy (Intermediate, Verified 10/18/22 14:09) RASH,SHAKES, shakiness, body shaking, tremors HPI OV - left knee , 05/05/22 NE HPI Details 47-year-old female who presents in the office today 5 months status post left knee arthroscopy with medial and lateral partial meniscectomy and chondroplasty, which was performed on 05/05/[address] Butt. The patient reports on 09/19/2022 her left knee gave out on her, which caused her to twist her right knee. She claims she is unable to go up stairs. 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 Lumbar disc herniation Memory deficit Migraine Obesity Ovarian cyst Pain management Patellar fracture Pericardial effusion Postsurgical hypothyroidism Remove/insert IUD Right flank pain Ureteral stone Vertigo Vitamin D deficiency Surgical History History of ankle surgery History of back surgery History of bladder surgery History of section History of cholecystectomy History of pubovaginal sling History of thyroid surgery Hx of cystoscopy Hx of tubal ligation Family History Daughter Von Willebrand disease Other Asthma Diabetes Emphysema of lung Family history of bladder cancer Family history of breast cancer Family history of lung cancer Family history of prostate cancer Social History Household Members: Family and Children Housing: House Do you presently have visiting nurse or other home services: No Alcohol intake: never Patient Tobacco Use Status: Never used Tobacco e-Cigarette/Vaping Use: Never Used Second Hand Smoke Exposure: No service: No Current occupational status: employed 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 Cognitive needs: No Hearing needs: No Vision needs: No Female Reproductive History Menstrual Age of Menarche: 14 Review of Systems Const All systems reviewed & are unremarkable except as noted in HPI and below Physical Exam Vital Signs: BMI result Body Mass Index 42.9 Const General: cooperative and no acute distress Orientation/consciousness: patient oriented x3 Resp Effort & Inspection: normal respiratory effort and able to speak in complete sentences Cardio Rate: regular rate Peripheral pulses: Peripheral pulses 2+ throughout GI Palpation (GI): Soft to palpation Skin Lesions: no lesions Rashes: no rashes Neuro General: patient oriented x3 Extrem Other: Left knee: No palpable deformity at the patella or quad tendons. ROM is 25-80 degrees. NVI. Psych Mental Status: mental status grossly normal Assessment & Plan Assessment & Plan (1) S/P left knee arthroscopy: Comment: left knee arthroscopy with medial and lateral partial meniscectomy and chondroplasty 05/05/2022 NE Code(s): Z98.890 - Other specified postprocedural states Plan Ms. Jenkins is a 47-year-old female who presents in the office today 5 months status post left knee arthroscopy with medial and lateral partial meniscectomy and chondroplasty, which was performed on 05/05/[address] Butt. The patient reports on 09/19/2022 her left knee gave out on her, which caused her to twist her right knee. She claims she is unable to go up stairs. The patient will be referred for a stat MRI of the left knee for further evaluation and treatment. She was given an out of work note stating she is out of work pending MRI. Follow up will be after an MRI is obtained, or sooner if needed. X-rays of the left knee, obtained on 10/01/2022, revealed: 1. Mild degenerative changes of tricompartment with chondrocalcinosis. 2. No visible acute fracture or dislocation seen. 3. There is moderate osteophyte along the anterior superior patella. Orders: Orders MR knee LT wo con 10/18/22 S76.109A - Unspecified injury of unspecified quadriceps muscle, fascia and tendon, initial encounter Patient Instructions: Scribed for Anahy Gutierrez PA-C by Antonia Frederick medical surgery nurse, on 10/18/2022 at 2:03 pm, EST. Your attestation Coding Level of Care Code Est Pt Level 4 (12154) Diagnoses S/P left knee arthroscopy Z98.890
== END 2022-10-18 14:35 | disposition home or self-care (01) ==
PROVIDERS: PCP Internal Medicine; Visit Provider Physician Assistant
DX: Z47.1 Aftercare following joint replacement surgery (principal); Z96.653 Presence of artificial knee joint, bilateral
CPT/HCPCS: 99214

== ENCOUNTER → 2022-10-18 13:39 | Outpatient (BNVA) | payer OTHER, SELFPAY | PROVIDERS: PCP Internal Medicine; Visit Provider Physician Assistant | DX: S76.109D Unspecified injury of unspecified quadriceps muscle, fascia and tendon, subsequent encounter (principal); Z98.890 Other specified postprocedural states | CPT/HCPCS: 99212 ==

== ENCOUNTER 2022-10-27 10:49 | Outpatient (REF) | payer OTHER, SELFPAY ==
--- NOTE | ~2022-10-27 | US_ITS ---
EXAMINATION: US PELVIS COMPLETE CLINICAL INFORMATION: Ovarian cyst COMPARISON: Pelvic ultrasound 04/26/2022, MR pelvis 06/17/2022, CT abdomen pelvis 05/09/2016 TECHNIQUE: Transabdominal and transvaginal imaging was performed. FINDINGS: The uterus is homogeneous measuring 10.0 x 4.9 x 6.9 cm. A regular homogeneous endometrium is identified measuring 0.3 cm. Intrauterine device in place. A 1.3 x 1.0 x 1.0 cm intramural myoma decreased in size from prior previously 1.8 cm. Nabothian cysts in the cervix. Trace fluid within the endocervical canal. The right ovary measures 7.3 x 6.6 x 7.6 cm for a volume of 19.2 mL. The right ovary is markable for a 7.2 x 6.3 x 7.5 cm unilocular cyst, not significantly changed in size from 2017 where it measured 7.3 cm. The left measures 4.3 x 2.8 x 3.3 cm for a volume of 21 mL. A 2.6 x 2.3 x 2.2 similar left paraovarian simple cyst. There is no pelvic free fluid. US/US pelvic and transvaginal IMPRESSION: 1. A 7.5 cm unilocular mildly complex cyst in the right ovary, not significantly changed in size from 2017 and previously characterized by MR, recommend surgical evaluation. 2. A 2.6 cm left paraovarian simple cyst. No follow-up imaging recommended. 3. A 1.3 cm intramural myoma decreased in size from prior. 4. Intrauterine device in place. 5. Trace fluid within the endocervical canal.
== END 2022-10-27 10:50 | disposition home or self-care (01) ==
LOC: HO.US 10:49
PROVIDERS: PCP Internal Medicine; Visit Provider Obstetrics & Gynecology
DX: N83.209 Unspecified ovarian cyst, unspecified side (principal)
CPT/HCPCS: 76830; 76856

== ENCOUNTER 2022-11-02 09:17 | Outpatient (REF) | payer OTHER, SELFPAY ==
[2022-11-02 09:42] LABS: MANUAL DIFF FLAG NO
[2022-11-02 10:06] LABS: Basophils Absolute Auto 0.1 X10*3/uL (0.0-0.2); Basophils Percent Auto 0.7 % (0-2); Eosinophils Absolute Auto 0.1 X10*3/uL (0.0-0.4); Eosinophils Percent Auto 1.6 % (0-4); Hematocrit 39.3 % (37.0-47.0); Hemoglobin 12.7 g/dl (12.0-16.0); Imm Gran Abs Auto 0.08 X10*3/uL (0.00-0.03); Lymphocytes Absolute Auto 2.2 X10*3/uL (1.2-4.9); Lymphocytes Percent Auto 28.4 % (20-40); Mean Corpuscular HGB Conc 32.3 g/dl (31.0-35.0); Mean Corpuscular Volume 92.7 fL (80.0-98.0); Mean Platelet Volume 9.8 fL (9.4-12.3); Monocytes Absolute Auto 0.5 X10*3/uL (0.1-1.2); Monocytes Percent Auto 6.8 % (2-11); Neutrophils Absolute Auto 4.7 x10*3/uL (2.0-8.3); Neutrophils Percent Auto 61.5 % (45-73); Platelet Count 362 X10*3/uL (160-400); Red Blood Count 4.24 X10*6/uL (4.20-5.50); Red Cell Distribution Width 12.6 % (11.0-16.0); White Blood Count 7.7 X10*3/uL (4.8-10.8)
[2022-11-02 10:19] LABS: Estimated Average Glucose 123 mg/dL; Hemoglobin A1c % 5.9 %
[2022-11-02 11:25] LABS: Alanine Aminotransferase 26 U/L (0-31); Albumin Level 4.1 g/dL (3.5-5.0); Alkaline Phosphatase 68 U/L (39-117); Anion Gap 11 (12-20); Aspartate Amino Transferase 22 U/L (5-31); Bilirubin Total 0.6 mg/dL (0.0-1.0); Blood Urea Nitrogen 15 mg/dL (9-16); Calcium 8.8 mg/dL (8.4-10.2); Carbon Dioxide 28 mmol/L (22-29); Chloride 104 mmol/L (96-108); Cholesterol 192 mg/dL; Estimated Glomerular Filt Rate > 60; Glucose Random 111 mg/dL (60-115); HDL Cholesterol 30 mg/dL; LDL Cholesterol Calculated 133 mg/dl; Sodium 139 mmol/L (135-145); Total Protein 6.9 g/dL (6.5-8.0); Triglycerides 147 mg/dL
[2022-11-02 11:41] LABS: Free T4 (Free Thyroxine) 1.14 ng/dL (0.71-1.85); Thyroid Stimulating Hormone 0.45 uIU/mL (0.32-4.0)
[2022-11-02 11:49] LABS: Folate 7.6 ng/mL (> or = 4.0); Vitamin B12 575 pg/mL (200-900)
[2022-11-04 13:09] LABS: CA-125 15 U/mL (<35)
== END 2022-11-02 09:18 | disposition home or self-care (01) ==
LOC: HO.LAB 09:17
PROVIDERS: PCP Internal Medicine; Visit Provider Obstetrics & Gynecology
DX: R73.01 Impaired fasting glucose (principal); E78.00 Pure hypercholesterolemia, unspecified; E89.0 Postprocedural hypothyroidism; N83.299 Other ovarian cyst, unspecified side
CPT/HCPCS: 36415; 80053; 80061; 82306; 82607; 82746; 83036; 84439; 84443; 85025; 86304

== ENCOUNTER 2022-11-02 19:22 | Outpatient (REF) | payer OTHER, SELFPAY ==
--- NOTE | ~2022-11-02 | MR_ITS ---
EXAMINATION: MR KNEE WITHOUT CONTRAST, RIGHT CLINICAL INFORMATION: Right knee pain and swelling following an injury. Swelling medial and superior to the joint. COMPARISON: Right knee radiographs dated 10/01/2022. TECHNIQUE: MRI of the knee without contrast was performed using routine sequences on a high-field scanner. FINDINGS: MENISCI: Medial Meniscus: Inner margin blunting/tearing of the posterior horn extending to the posterior root. Mild medial extrusion of the meniscal body with minimal inner margin fraying. Lateral Meniscus: Intact. LIGAMENTS: Cruciate: Intact. Collateral: Edema adjacent to the medial collateral ligament, which may be related to the meniscal tear or indicate a Grade 1 sprain. Intact fibular collateral ligament. EXTENSOR MECHANISM: Superior patellar enthesophytes. Intact quadriceps and patellar tendons. Normal patellofemoral alignment. ARTICULAR CARTILAGE/BONE: Patellofemoral Compartment: Medial patellar signal heterogeneity. Inferior central and medial trochlear articular cartilage signal heterogeneity. Tiny marginal osteophytes. Medial Compartment: Mild articular cartilage thinning and signal heterogeneity with tiny marginal osteophytes. Lateral Compartment: Intact articular cartilage. JOINT FLUID AND BURSAE: [id number] joint effusion and trace Calderon's cyst. MR/MR knee RT wo con IMPRESSION: 1. Inner margin blunting/tearing of the medial meniscus posterior horn extending to the posterior root. Mild medial extrusion of the meniscal body with minimal inner margin fraying. 2. Edema adjacent to the medial collateral ligament, which may be related to the meniscal tear or indicate a Grade 1 sprain. 3. Mild patellofemoral and medial compartment osteoarthritis. [id number] joint effusion and trace Calderon's cyst.
== END 2022-11-02 19:23 | disposition home or self-care (01) ==
LOC: HO.MRI 19:22
PROVIDERS: PCP Internal Medicine; Visit Provider Physician Assistant
DX: M23.91 Unspecified internal derangement of right knee (principal); S76.101A Unspecified injury of right quadriceps muscle, fascia and tendon, initial encounter; X58.XXXA Exposure to other specified factors, initial encounter; Y93.9 Activity, unspecified; Y92.9 Unspecified place or not applicable; Y99.9 Unspecified external cause status
CPT/HCPCS: 73721

== ENCOUNTER 2022-11-03 07:51 | Outpatient (AMB) | payer OTHER, SELFPAY ==
[2022-11-03 07:56] VITALS: BP 118/72; BMI 43.3
--- NOTE | 2022-11-03 07:56 | MHC.OFFVIS ---
Intake Vital Signs 11/03/22 07:56 Height 5 ft 1 in Weight 229 lb 4.492 oz BMI 43.3 BP 118/72 Intake Visit Reasons: IUD check/ Ultrasound follow up [employer] Duty [employer] Equipment Required: No Information Interpreted: non-clinical & clinical Accompanied by: Self / Same As Patient Allergies oxycodone [OXYCODONE] Allergy (Intermediate, Verified 11/03/22 07:57) RASH,SHAKES, shakiness, body shaking, tremors HPI HPI Comments History of Present Illness Details Presenting for follow-up ultrasound regarding a right simple adnexal cyst around 7.5 cm that is been stable since 2017. MRI of the pelvis done in 06/17 showed the followin.? Simple appearing 7.8 cm right adnexal cyst. The simple appearing structure and relative stability since the oldest available 04/07/2016 CT scan suggests an indolent process. 2.? Mixed signal within the contralateral left ovary with several small follicles noted some of which demonstrate increased T1 signal suggesting blood products. Again more likely physiologic changes with a few tiny hemorrhagic cysts/follicles noted 3.? IUD artifact within the thin endometrial cavity. 4.? Diffuse thickening of the junctional zone consistent with a diffuse adenomyosis. CT scan of abdomen pelvis ordered by urology in 08/17 showed the following: PELVIC VISCERA: The uterus is anteverted with an IUD well located within the endometrial canal. There is a large right adnexal lesion measuring 23 Hounsfield units, anterior and superior to the uterus. It measures 7.0 x 7.8 x 7.0 cm. There are several phleboliths in the pelvis. No free fluid seen. Pelvic ultrasound done on 10/27/2022 showed the following: IMPRESSION: 1.? A 7.5 cm unilocular mildly complex cyst in the right ovary, not significantly changed in size from 2017 and previously characterized by MR, recommend surgical evaluation. 2.? A 2.6 cm left paraovarian simple cyst. No follow-up imaging recommended. 3.? A 1.3 cm intramural myoma decreased in size from prior. 4.? Intrauterine device in place. 5.? Trace fluid within the endocervical canal. 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 Lumbar disc herniation Memory deficit Migraine Obesity Ovarian cyst Pain management Patellar fracture Pericardial effusion Postsurgical hypothyroidism Remove/insert IUD Right flank pain Ureteral stone Vertigo Vitamin D deficiency Surgical History History of ankle surgery History of back surgery History of bladder surgery History of section History of cholecystectomy History of pubovaginal sling History of thyroid surgery Hx of cystoscopy Hx of tubal ligation Family History Daughter Von Willebrand disease Other Asthma Diabetes Emphysema of lung Family history of bladder cancer Family history of breast cancer Family history of lung cancer Family history of prostate cancer Social History Household Members: Family and Children Housing: House Do you presently have visiting nurse or other home services: No Alcohol intake: never Patient Tobacco Use Status: Never used Tobacco e-Cigarette/Vaping Use: Never Used Second Hand Smoke Exposure: No service: No Current occupational status: employed 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 Cognitive needs: No Hearing needs: No Vision needs: No Female Reproductive History Menstrual Age of Menarche: 14 Review of Systems Const All systems reviewed & are unremarkable except as noted in HPI and below Reports as per HPI and Reports no additional complaints GI Reports no additional complaints Reports no additional complaints Physical Exam Vital Signs: Last Vital Signs BP 118/72 11/03/22 07:56 BMI result Body Mass Index 43.3 Assessment & Plan Assessment & Plan (1) Complex ovarian cyst: Code(s): N83.299 - Other ovarian cyst, unspecified side Plan: Discussed with the patient the finding on CT scan and recent ultrasound complex ovarian. Although adnexal mass was stable since 2016 but has been consistently simple till recently in 08/19 started being complex and a follow-up ultrasound showed mildly complex ovarian cyst. The differential diagnosis discussed with the patient includes the following but not limited to: benign and malignant gynecological and non-gynecological. Discussed with the patient that per ACOG guidelines, when a patient with a suspicious or persistent complex adnexal mass requires surgical evaluation, a physician trained to appropriately stage and debulk ovarian cancer should perform the operation. Surgical exploration should be performed in a hospital facility that has the necessary support and consultative services to optimize the patient?s outcome. When a malignant ovarian tumor is discovered incidentally, a gynecologic oncologist should be consulted intraoperatively. CA 125 , CA 19-9 and CEA ordered, recommended to proceed with laparoscopic ovarian cystectomy/possible oophorectomy. Informed the patient that there is no gynecologic oncologist available on staff at [facility] , therefore the patient will be referred to an OBGYN practice at [facility] of her choice where during surgery there is immediate access to a gynecologic oncologist intraoperatively in case there was any suspicion or evidence of malignancy. The patient agrees to be referred to an OBGYN at [facility]. The patient verbalized understanding and agreed with the plan. Instructed the patient to call our office back in case a referral appointment is not scheduled, missed or canceled so that we will assist on rescheduling another appointment, the patient verbalized understanding agreed with the plan. Orders: Orders Carbohydrate Antigen 19-9 Today N83.299 - Other ovarian cyst, unspecified side Carcinoembryonic Antigen Today N83.299 - Other ovarian cyst, unspecified side Coding Level of Care Code Est Pt Level 3 (45412) Diagnoses Complex ovarian cyst N83.299
== END 2022-11-03 08:38 | disposition home or self-care (01) ==
LOC: HO.HWS 07:51
PROVIDERS: PCP Internal Medicine; Visit Provider Obstetrics & Gynecology
DX: N83.299 Other ovarian cyst, unspecified side (principal)
CPT/HCPCS: 99213

== ENCOUNTER → 2022-11-03 07:51 | Outpatient (BNVA) | payer OTHER, SELFPAY | PROVIDERS: PCP Internal Medicine; Visit Provider Obstetrics & Gynecology | DX: Z30.431 Encounter for routine checking of intrauterine contraceptive device (principal); N83.299 Other ovarian cyst, unspecified side | CPT/HCPCS: 99212 ==

== ENCOUNTER 2022-11-19 11:20 | Outpatient (REF) | payer OTHER, SELFPAY ==
--- NOTE | ~2022-11-19 | US_ITS ---
EXAMINATION: US RETROPERITONEAL LIMITED (RENAL ONLY) CLINICAL INFORMATION: Calculus of kidney. COMPARISON: CT abdomen and pelvis 08/12/2022. Renal ultrasound 06/23/2022 and 01/04/2017. TECHNIQUE: Real-time imaging of the kidneys. FINDINGS: RIGHT KIDNEY: 12.6 x 5.6 x 6.9 cm (SAG x AP x TRV). The kidney is normal in size, contour, and echogenicity. Renal cortical thickness is normal. No focal parenchymal lesions or hydronephrosis. At the interpolar aspect, a 6 mm nonobstructing calculus is seen. At the lower pole, a 7 mm nonobstructing calculus is seen. LEFT KIDNEY: 12.6 x 6.7 x 6.2 cm (SAG x AP x TRV). The kidney is normal in size, contour, and echogenicity. Renal cortical thickness is normal. No calculi or focal parenchymal lesions. No hydronephrosis. US/US renal BI IMPRESSION: There are nonobstructing right renal calculi, as detailed. No left renal calculus is seen. No hydronephrosis is seen bilaterally.
== END 2022-11-19 11:21 | disposition home or self-care (01) ==
LOC: HO.US 11:20
PROVIDERS: PCP Internal Medicine; Visit Provider Urology
DX: N20.0 Calculus of kidney (principal)
CPT/HCPCS: 76775

== ENCOUNTER 2022-11-25 09:11 | Outpatient (AMB) | payer OTHER, SELFPAY ==
--- NOTE | 2022-11-25 09:13 | MHC.OFFVIS ---
Intake Vital Signs 11/25/22 09:15 Height 5 ft 1 in Weight 229 lb BMI 43.3 Intake Visit Reasons: OV - Right knee MRI review Intake Note: Alicia is a 47 year old female who presents today for a MRI review for her right knee. Allergies oxycodone [OXYCODONE] Allergy (Intermediate, Verified 11/25/22 09:15) RASH,SHAKES, shakiness, body shaking, tremors HPI OV - Right knee MRI review HPI Details 47-year-old female who presents in the office today for a follow up of right knee pain and review of her MRI. She is 6 months status post left knee arthroscopy with medial and lateral partial meniscectomy and chondroplasty, which was performed on 05/05/[address] Butt. 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 Lumbar disc herniation Memory deficit Migraine Obesity Ovarian cyst Pain management Patellar fracture Pericardial effusion Postsurgical hypothyroidism Remove/insert IUD Right flank pain Ureteral stone Vertigo Vitamin D deficiency Surgical History History of ankle surgery History of back surgery History of bladder surgery History of section History of cholecystectomy History of pubovaginal sling History of thyroid surgery Hx of cystoscopy Hx of tubal ligation Family History Daughter Von Willebrand disease Other Asthma Diabetes Emphysema of lung Family history of bladder cancer Family history of breast cancer Family history of lung cancer Family history of prostate cancer Social History Household Members: Family and Children Housing: House Do you presently have visiting nurse or other home services: No Alcohol intake: never Patient Tobacco Use Status: Never used Tobacco e-Cigarette/Vaping Use: Never Used Second Hand Smoke Exposure: No service: No Current occupational status: employed 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 Cognitive needs: No Hearing needs: No Vision needs: No Female Reproductive History Menstrual Age of Menarche: 14 Review of Systems Const All systems reviewed & are unremarkable except as noted in HPI and below Physical Exam Vital Signs: BMI result Body Mass Index 43.3 Const General: cooperative, healthy appearing and no acute distress Resp Effort & Inspection: normal respiratory effort and able to speak in complete sentences Cardio Rate: regular rate Peripheral pulses: Peripheral pulses 2+ throughout GI Palpation (GI): Soft to palpation Skin Lesions: no lesions Rashes: no rashes Extrem Other: Right knee: Normal to inspection. No ecchymosis, erythema, or joint effusion. Tenderness to palpaton over the pes anserine bursa. No tenderness to palpation to the medial or lateral joint lines. Full knee extension and flexion. NVI. Office Procedures Joint Injection/Drain Joint Injection/Drain Primary Site: right knee Prep: site was prepped using aseptic technique, ethochloride spray was applied and injection warnings given Injected: 80 mg of, DepoMedrol, with 8 mL of (2% plain lido ) and in the joint Procedure: The patient tolerated the procedure well, but had some pain with the injection and there was some relief with the local anesthesia Coding 51715 - Large joint Procedure code (CPT) selection complete Results Reviewed Results Reviewed: 11/25/22 09:44 Lidocaine HCl 2 % MPF [Xylocaine 2 % MPF] 5 ml .ROUTE .STK-MED ONE methylPREDNISolone acetate [DEPO-MedroL] 80 mg .ROUTE .STK-MED ONE Assessment & Plan Assessment & Plan (1) Osteoarthritis of right patellofemoral joint: Code(s): M17.11 - Unilateral primary osteoarthritis, right knee Plan Ms. Jenkins is a 47-year-old female who presents in the office today for a follow up of right knee pain and review of her MRI. She is 6 months status post left knee arthroscopy with medial and lateral partial meniscectomy and chondroplasty, which was performed on 05/05/[address] Butt The patient was offered a cortisone injection in the right knee with 80 mg of DepoMedrol. The patient was explained the risk, benefits, and alternatives to receiving this injection. After receiving consent for the injection, the patient had the procedure done while in office today. The patient tolerated the procedure well with no complications. Dr. Butt was available to review the MRI with me while in the office today. No surgical intervention is warranted at this time. The patient will be referred to physical therapy to work on ROM and strengthening. Follow up will be in 6 weeks, or sooner if needed. MRI of the right knee, obtained on 11/02/2022, revealed: 1. Inner margin blunting/tearing of the medial meniscus posterior horn extending to the posterior root. Mild medial extrusion of the meniscal body with minimal inner margin fraying. 2. Edema adjacent to the medial collateral ligament, which may be related to the meniscal tear or indicate a Grade 1 sprain. 3. Mild patellofemoral and medial compartment osteoarthritis. [id number] joint effusion and trace Calderon's cyst. Orders: Orders PT Evaluation and Treatment Today M23.91 - Unspecified internal derangement of right knee Patient Instructions: Scribed for Anahy Gutierrez PA-C by Antonia Frederick medical chemist, on 11/25/2022 at 9:12 am, EST. Coding Level of Care Code Est Pt Level 3 (52613) Diagnoses Osteoarthritis of right patellofemoral joint M17.11 CPT Codes Coding - 09881 Large joint: 33236 - Large joint ([id number])
[2022-11-25 09:15] VITALS: BMI 43.3
== END 2022-11-25 10:21 | disposition home or self-care (01) ==
PROVIDERS: PCP Internal Medicine; Visit Provider Physician Assistant
DX: M17.11 Unilateral primary osteoarthritis, right knee (principal)
CPT/HCPCS: 20610; 99213

== ENCOUNTER → 2022-11-25 09:11 | Outpatient (BNVA) | payer OTHER, SELFPAY | PROVIDERS: PCP Internal Medicine; Visit Provider Physician Assistant | DX: N20.0 Calculus of kidney (principal); M17.11 Unilateral primary osteoarthritis, right knee | CPT/HCPCS: 20610; 99212; J1040 ==

== ENCOUNTER 2022-11-25 10:42 | Outpatient (AMB) | payer OTHER, SELFPAY ==
--- NOTE | 2022-11-25 11:09 | MHC.OFFVIS ---
Intake Intake Visit Reasons: 3m/CT(?)/litholink(11/19) Intake Note: Patient is present for Follow Up Ultrasound Urology Med: Vitamin B6 Antibiotic Allergy: None Blood Thinner: None Pharmacy: [facility] Allergies oxycodone [OXYCODONE] Allergy (Intermediate, Verified 11/25/22 09:15) RASH,SHAKES, shakiness, body shaking, tremors Medication List - Last Reconciled 11/25/22 by Marcio Winslow MD albuterol sulfate 90 mcg/actuation (ProAir HFA) 2 puffs inhalation Q6H PRN 30 days amlodipine 5 mg PO DAILY blood pressure monitor As directed cholecalciferol (vitamin D3) 25 mcg PO DAILY 90 days cholestyramine-aspartame 4 gram (Prevalite) 4 grams PO BID diclofenac sodium 1% (Voltaren Arthritis Pain) 4 grams topical QID diclofenac sodium 75 mg PO BID PRN ketorolac 10 mg PO QID PRN 5 days levonorgestrel (Mirena) intrauterine levothyroxine (Tirosint) 25 mcg PO DAILY 90 days levothyroxine (Tirosint) 150 mcg PO DAILY 90 days levothyroxine (Tirosint) 100 mcg PO DAILY 90 days lisinopril 40 mg PO DAILY 30 days meclizine 25 mg PO TID PRN pyridoxine (vitamin B6) 100 mg PO DAILY 90 days sumatriptan succinate 100 mg PO DAILY PRN HPI HPI Comments History of Present Illness Details Alicia Jenkins is a very pleasant female. They are a patient of Dr Pelaez. She is seen for the following urologic conditions - nephrolithiasis Does have symptoms from right-sided renal stones Options discussed Like to move ahead with right ESWL Nephrolithiasis/Urolithiasis:? They are here for further evaluation of nephrolithiasis - discuss results. ? They present for evaluation of? back pain? none ? flank pain? none ? abdominal pain? none ? Urolithiasis was diagnosed 2015 ? Seen [place] [facility] [place], 04/13/20 ? The patient previously had kidney stones whose composition w unknown. ? Laboratory investigations include no recent labs. ? 24 Hour urine evaluation 07/12 , High oxalate > 30mg, Good Volume > 2.00 L, Low calcium <200, High Citrate. ? Prior treatment(s) include 06/11 , right, ureteroscopy - no stone, 06/15 left ureteroscopy laser lithotripsy ? Prior imaging includes a - CT (computed tomography) scan of the abdomen/pelvis (stone protocol) 05/14 - multiple small stones seen in the right kidney. Images reviewed personally - 07/12 , a renal ultrasound, showing no evidence of stones - 04/17 CT scan left UVJ stone with mild hydroureteronephrosis - 08/17 CT scan 5 mm right, 2 mm left - 11/17 renal ultrasound right 6 mm stone, no stone left ? Current therapeutic plan - right ESWL Known family history of von Willebrand's disease. Will need single dose tranexamic acid coverage in preop. 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 Lumbar disc herniation Memory deficit Migraine Obesity Ovarian cyst Pain management Patellar fracture Pericardial effusion Postsurgical hypothyroidism Remove/insert IUD Right flank pain Ureteral stone Vertigo Vitamin D deficiency Surgical History History of ankle surgery History of back surgery History of bladder surgery History of section History of cholecystectomy History of pubovaginal sling History of thyroid surgery Hx of cystoscopy Hx of tubal ligation Family History Daughter Von Willebrand disease Other Asthma Diabetes Emphysema of lung Family history of bladder cancer Family history of breast cancer Family history of lung cancer Family history of prostate cancer Social History Household Members: Family and Children Housing: House Do you presently have visiting nurse or other home services: No Alcohol intake: never Patient Tobacco Use Status: Never used Tobacco e-Cigarette/Vaping Use: Never Used Second Hand Smoke Exposure: No service: No Current occupational status: employed 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 Cognitive needs: No Hearing needs: No Vision needs: No Female Reproductive History Menstrual Age of Menarche: 14 Review of Systems Const Denies chills and Denies fever(s) Card Reports no additional complaints and Denies syncope Resp Denies cough GI Denies abdominal pain and Denies heartburn Reports as per HPI and Denies change in libido Neuro Denies syncope Psych Denies change in libido Endo Denies change in libido Physical Exam Const General: cooperative, healthy appearing, comfortable and no acute distress Orientation/consciousness: patient oriented x3 HEENT Face and sinus: Yes normal facial exam Mouth: moist mucous membranes Neck Neck: Yes normal visual inspection, Yes full ROM and Yes trachea midline Chest Chest palpation & inspection: normal inspection of the chest Resp Effort & Inspection: normal respiratory effort, able to speak in complete sentences and no respiratory distress GI Inspection: Yes normal to inspection Back/Spine/Pelvis Cervical Spine: normal cervical lordosis Thoracic/Lumbar Spine: thoracic and lumbar spine normal to inspection Skin General skin exam: no rashes or lesions noted Neuro General: patient oriented x3, gait normal, tone normal and moves all extremities Extrem General: Yes normal to inspection and Yes capillary refill normal Assessment & Plan Assessment & Plan (1) Nephrolithiasis: Comment: May 2020 allopurinol vitamin B6 Code(s): N20.0 - Calculus of kidney Plan ESWL right side Extracorporeal Shock Wave Lithotripsy We discussed the nature of the decision and reasonable alternatives for performing the above surgery. Interventions include chemical dissolution, ESWL, ureteroscopy with laser lithotripsy and stent placement, PCNL. Options such as medical therapy were discussed. The relative uncertainties and benefits related to each alternate procedure were adequately discussed. General surgical risks including, but not limited to, pain, bleeding, infection, myocardial infarction, pulmonary embolus, deep vein thrombosis and cerebrovascular accident which may result in further hospitalization were discussed. Full disclosure of the procedure as well as all major risks, benefits and complications were discussed including but not limited to risks of bleeding, injury to the kidney with hematoma or tristan-hematoma, failure to fragments stone, potential for ureteric obstruction from stone passage and need for secondary procedures. There is a small long-term risk of hypertension and a question zuleika of diabetes. Success rate of fragmentation and passage is approximately 70- 75%. This is compared to the risks and benefits for ureteroscopy which has a higher success rate but is a more invasive procedure. The success rate of the procedure was discussed. Success of the procedure in the short-term does not necessarily guarantee that long-term success will be maintained. Suitable follow up will need to be maintained. The patient showed understanding of the discussion as well as the typical recovery time, and the outpatient nature of this procedure. Opportunity was given for questions. Repeat-back protocol used to confirm understanding. They wish to proceed with right ESWL Orders: Orders US renal BI 11/19/22 N20.0 - Calculus of kidney Patient Instructions: Imaging studies, laboratory and physical exam results were discussed and reviewed in detail. No major barriers to patient understanding were identified. An opportunity to ask questions regarding the treatment plan was provided. All questions were answered. The patient expressed understanding and agreement with the above treatment plan. The patient is aware they should contact our office by phone for worsening of their current condition or the appearance of new urologic symptoms. Compliance is encouraged with any medications and followup testing that is ordered. It is a privilege to participate in the urologic care of your patient. If you have any questions or concerns regarding treatment for the above conditions, or other urologic issues, please do not hesitate to contact me. The office telephone contact is [phone]. This note is constructed using voice recognition software. While every effort has been made to ensure accuracy entry level electrical engineer errors may have been included. Yours sincerely, Dr Marcio Winslow MD, [facility] - Urology Providers of Expert, Compassionate Care for the Genitourinary System Coding Level of Care Code Est Pt Level 4 (32590) Diagnoses Nephrolithiasis N20.0
== END 2022-11-25 11:33 | disposition home or self-care (01) ==
PROVIDERS: PCP Internal Medicine; Visit Provider Urology
DX: N20.0 Calculus of kidney (principal)
CPT/HCPCS: 99214

== ENCOUNTER 2022-12-06 08:30 | Outpatient (REF) | payer OTHER, SELFPAY ==
--- NOTE | ~2022-12-06 | FL_ITS ---
EXAMINATION: Upper GI barium swallow. clinical indication: Dysphagia to solids and liquids. COMPARISON:: None. TECHNIQUE: Upright fluoroscopy port was performed in 2 oblique and AP view following oral administration of thin barium. FINDINGS: Following oral administration of thin, thick barium and barium coated solids and cracker in upright standing there is normal propagation bolus from the oral cavity through the pharynx into stomach without any evidence of obstruction, narrowing or stricture. There is no retention of barium in the pharynx, laryngeal penetration or aspiration. Effervescent granules were given after the barium. On placing patient lying supine and prone the course, caliber and peristalsis of the stomach, duodenal bulb and the sweep is normal. No the mucosal pattern of the stomach is normal. FL/FL upper GI w Ba Swallow IMPRESSION: Normal barium swallow. Normal upper GI air-contrast exam.
== END 2022-12-06 08:31 | disposition home or self-care (01) ==
LOC: HO.XRAY 08:30
PROVIDERS: PCP Internal Medicine; Visit Provider Internal Medicine
DX: R13.10 Dysphagia, unspecified (principal)
CPT/HCPCS: 74240

== ENCOUNTER → 2022-12-06 08:32 | Outpatient (BNV) | payer OTHER, SELFPAY | PROVIDERS: PCP Internal Medicine; Visit Provider Radiology Diagnostic Radiology | DX: R13.10 Dysphagia, unspecified (principal) | CPT/HCPCS: 74246 ==

== ENCOUNTER 2022-12-09 09:25 | Outpatient (REF) | payer OTHER, SELFPAY ==
[2022-12-09 11:33] LABS: Carcinoembryonic Antigen < 1.73 ng/mL
[2022-12-15 08:39] LABS: Carbohydrate Antigen 19-9 16 U/mL (<34)
== END 2022-12-09 09:26 | disposition home or self-care (01) ==
LOC: HO.LAB 09:25
PROVIDERS: PCP Internal Medicine; Visit Provider Obstetrics & Gynecology
DX: N83.299 Other ovarian cyst, unspecified side (principal)
CPT/HCPCS: 36415; 82378; 86301

== ENCOUNTER 2022-12-15 06:22 | Day surgery (SDC) | payer OTHER, SELFPAY ==
[2022-12-13 14:55] VITALS: BMI 43.3
--- NOTE | ~2022-12-15 | XR_ITS ---
EXAMINATION: XR ABDOMEN KUB CLINICAL INDICATION: ESWL right side COMPARISON: Renal ultrasound 11/19/2022, CT 08/12/2022 TECHNIQUE: AP view of the abdomen. FINDINGS: Limited assessment for renal calculi due to overlying bowel contents. Previously identified right renal calculus is not definitely seen radiographically. Cholecystectomy clips are noted. Multiple calcifications in the pelvis favor phleboliths. Bowel gas pattern is nonobstructive. Fusion hardware noted at the lumbosacral junction. IUD overlies the lower pelvis. XR/XR KUB IMPRESSION: Previously identified right renal calculus is not definitely seen radiographically, with assessment limited due to overlying bowel contents.
[2022-12-15 07:18] VITALS: BP 143/88; PULSE 87; RESP 16; TEMP 36.8; O2SAT 98; BMI 44.6
--- NOTE | 2022-12-15 07:28 | PC.NURSE ---
Upper and lower full denture into OR, okayed per Dr. Galdamez. OR nurse Shagufta Esqueda made aware.
[2022-12-15] MEDS: Lactated Ringers 1,000 ML 100 ML IVCONT (07:42)
[2022-12-15] MEDS: Tranexamic Acid 1,000 MG in 0.9 % Sodium Chloride 50 ML 360 MG IV (07:58)
--- NOTE | 2022-12-15 08:40 | HO.ANESPROP2 ---
Documented by User: Kristy Hawley NP 12/14/22 12:01 HPI - Anesthesia Eval Consult details Narrative: 47 F for Right Lithotripsy ESW Preop TXA for fam hx of von willebrands per uro surgeon s/p knee arthroscopy , left 04/2022 h/o neck radiation in 2019 . [facility] Active Problems Active Problems: All Active Problems (Updated 11/25/22 @ 09:57 by Antonia Frederick) Osteoarthritis of right patellofemoral joint (Acute) Internal derangement of right knee (Acute) Preop exam for internal medicine (Acute) Hemorrhagic cyst of ovary (Acute) S/P left knee arthroscopy (Acute) Dysphagia (Acute) Bile salt-induced diarrhea (Acute) Abnormal uterine bleeding (Acute) Bilateral ovarian cysts (Acute) Fatty liver (Acute) Adenoma of right adrenal gland (Acute) Complex ovarian cyst (Acute) Malpositioned IUD (Acute) Right lower quadrant pain (Acute) Hydronephrosis (Acute) Headache (Acute) Osteoarthritis of left knee (Acute) Anserine bursitis (Acute) COVID-19 virus infection (Acute) Dawson angioma (Acute) Migraine (Acute) Shoulder pain, left (Acute) Nephrolithiasis (Acute) Epidermal inclusion cyst (Acute) Asthma exacerbation (Acute) Impaired fasting glucose (Acute) Postsurgical hypothyroidism (Acute) Benign essential hypertension (Acute) Obesity (Acute) Hypercholesterolemia (Acute) History of thyroid cancer (Acute) Vitamin D deficiency (Acute) 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 (Acute) Family history of von Willebrand disease (Acute) Past Medical History Medical History Remove/insert IUD Kidney stone Ovarian cyst Ureteral stone Right flank pain Left knee pain Memory deficit Acute pain Pain management Knee swelling Knee injury Asthma exacerbation Acute sinusitis Elevated LFTs Impaired fasting glucose Postsurgical hypothyroidism Benign essential hypertension COVID-19 vaccine administered Obesity Pericardial effusion Hypercholesterolemia History of thyroid cancer Vitamin D deficiency 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 Family history of von Willebrand disease Patellar fracture Closed right ankle fracture Lumbar disc herniation History of renal calculi Hypothyroid Vertigo Migraine Asthma Family History Family History Daughter Von Willebrand disease Other Asthma Diabetes Emphysema of lung Family history of bladder cancer Family history of breast cancer Family history of lung cancer Family history of prostate cancer Family history of problems with anesthesia: No Surgical History Surgical History Hx of arthroscopy of left knee Hx of tubal ligation History of pubovaginal sling Hx of cystoscopy History of ankle surgery History of cholecystectomy History of bladder surgery History of thyroid surgery History of back surgery History of section History of Problems with Anesthesia: No Social History Social History Household Members: Family and Children Housing: House Do you presently have visiting nurse or other home services: No Alcohol intake: never Patient Tobacco Use Status: Never used Tobacco e-Cigarette/Vaping Use: Never Used Second Hand Smoke Exposure: No Use of substances other than those prescribed or required for medical reasons: No Are you DNR?: No Advance Directives: No Advance Directives Information Provided: Yes service: No Current occupational status: employed 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 Cognitive needs: No Hearing needs: No Vision needs: No Meds Allergies Allergy/AdvReac Type Severity Reaction Status Date / Time oxycodone [OXYCODONE] Allergy Intermediate RASH,SHAKES, Verified 12/15/22 06:58 shakiness, body shaking, tremors Home Medications Medication Instructions Recorded Confirmed Last Taken Type levonorgestrel 21 mcg/24 hours (8 intrauterine 11/03/22 11/25/22 Unknown History yrs) 52 mg intrauterine device (Mirena) Exam Exam Date and Time: December 14, 2022 1039 Height,Weight and Vital Signs: Height 5 ft 1 in Weight 103.873 kg Pertinent Lab Results Pertinent Lab Results: Laboratory Tests 11/02/22 09:39 WBC 7.7 Hgb 12.7 Hct 39.3 Plt Count 362 Sodium 139 Potassium 4.0 Chloride 104 Carbon Dioxide 28 BUN 15 Creatinine 0.54 Assessment and Plan Assessment Anesthesia Assessment: Chart Reviewed Final Anesthetic Review Family History of Problems with Anesthesia: No History of Problems with Anesthesia: No Documented by User: Aleja Galdamez DO 12/15/22 09:11 [facility] Past Medical History Medical History Remove/insert IUD Kidney stone Ovarian cyst Ureteral stone Right flank pain Left knee pain Memory deficit Acute pain Pain management Knee swelling Knee injury Asthma exacerbation Acute sinusitis Elevated LFTs Impaired fasting glucose Postsurgical hypothyroidism Benign essential hypertension COVID-19 vaccine administered Obesity Pericardial effusion Hypercholesterolemia History of thyroid cancer Vitamin D deficiency 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 Family history of von Willebrand disease Patellar fracture Closed right ankle fracture Lumbar disc herniation History of renal calculi Hypothyroid Vertigo Migraine Asthma Family History Family History Daughter Von Willebrand disease Other Asthma Diabetes Emphysema of lung Family history of bladder cancer Family history of breast cancer Family history of lung cancer Family history of prostate cancer Family history of problems with anesthesia: No Surgical History Surgical History Hx of arthroscopy of left knee Hx of tubal ligation History of pubovaginal sling Hx of cystoscopy History of ankle surgery History of cholecystectomy History of bladder surgery History of thyroid surgery History of back surgery History of section History of Problems with Anesthesia: No Social History Social History Household Members: Family and Children Housing: House Do you presently have visiting nurse or other home services: No Alcohol intake: never Patient Tobacco Use Status: Never used Tobacco e-Cigarette/Vaping Use: Never Used Second Hand Smoke Exposure: No Use of substances other than those prescribed or required for medical reasons: No Are you DNR?: No Advance Directives: No Advance Directives Information Provided: Yes service: No Current occupational status: employed 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 Cognitive needs: No Hearing needs: No Vision needs: No Meds Allergies Allergy/AdvReac Type Severity Reaction Status Date / Time oxycodone [OXYCODONE] Allergy Intermediate RASH,SHAKES, Verified 12/15/22 06:58 shakiness, body shaking, tremors Home Medications Medication Instructions Recorded Confirmed Last Taken Type levonorgestrel 21 mcg/24 hours (8 intrauterine 11/03/22 11/25/22 Unknown History yrs) 52 mg intrauterine device (Mirena) Exam Exam Date and Time: December 15, 2022 0840 Height,Weight and Vital Signs: Height 5 ft 1 in Weight 103.873 kg Vital Signs Temperature 98.2 F 12/15/22 07:18 Pulse Rate 87 12/15/22 07:18 Respiratory Rate 16 12/15/22 07:18 Blood Pressure 143/88 H 12/15/22 07:18 Pulse Oximetry 98 12/15/22 07:18 Oxygen Delivery Method Room Air 12/15/22 07:18 Temperature 98.2 F 12/15/22 07:18 Pulse Rate 87 12/15/22 07:18 Respiratory Rate 16 12/15/22 07:18 Blood Pressure 143/88 H 12/15/22 07:18 Pulse Oximetry 98 12/15/22 07:18 Oxygen Delivery Method Room Air 12/15/22 07:18 Height 5 ft 1 in Weight 107.048 kg Airway Mallampati Class: II TM Dist: >3cm Neck ROM: Full Denture: Upper and Lower Heart: S1S2 Lungs: CTAB Assessment and Plan Assessment Anesthesia Assessment: Anesthesia Plan Discussed and Chart Reviewed Final Anesthetic Review Family History of Problems with Anesthesia: No History of Problems with Anesthesia: No NPO: Yes ASA Class: III Final Preanesthetic Review: No Changes in Pt Med Stat, Meds/Allgs Chart Reviewed, Consent Obtained/Reviewed and Anes Risks/Benef Reviewed Patient Risk: Intermediate Procedure Risk: Low Anesthetic Plan Anesthetic Plan: MAC: and Agree w/ Assess. and Plan Disposition: Standard PACU
--- NOTE | 2022-12-15 09:15 | W.PM.OPN ---
Operative Note Operative Note Date of Service: 12/15/22 Narrative: PreOperative Diagnosis: right Renal stones Post Operative Diagnosis: right Renal stones Procedure: right ESWL Surgeon: Dr Marcio Winslow Anesthesia: mac/sedation Indications for procedure: The patient understands ESWL may be a staged procedure and subsequent intervention may be required based on imaging after ESWL. Quoted stone clearance rates for a solitary procedure are in the 70-80% range based primarily on stone location. They also understand there is a risk of bleeding to the kidney, infection, damage to adjacent organs, and stone migration following the procedure. - Imaging right 5mm midpole, 6mm lower pole - 500 mid, 2000 lower Procedure: After informed consent was verified the patient was brought to the operating room and placed in a supine position. Anesthesia was performed per protocol. Safety pause time-out was performed. Imaging was displayed in the room and laterality confirmed. ESWL was performed. The 1st 500 shocks were performed at 60 hertz. These were performed with increasing power. Once maximum power was reached the rate was increased to 180 hertz. A total of 2500 shocks were given. Targeted imaging with ultrasound/fluoroscopy showed stone smudging suggestive of disintegration. The patient tolerated the procedure well and was transferred to the recovery area upon completion. Post procedure imaging will be organized. There was no evidence for flank discoloration.
[2022-12-15 09:35] VITALS: BP 109/71; PULSE 87; RESP 17; TEMP 36.4; O2SAT 97
[2022-12-15 09:50] VITALS: BP 120/74; PULSE 84; RESP 16; O2SAT 96
[2022-12-15 10:05] VITALS: BP 143/86; PULSE 77; RESP 16; TEMP 36.4; O2SAT 97
== END 2022-12-15 10:55 | disposition home or self-care (01) ==
PROVIDERS: PCP Internal Medicine; Visit Provider Urology
PROC: (CPT 50590; principal; 2022-12-15 08:10)
DX: N20.0 Calculus of kidney (principal); I10 Essential (primary) hypertension; E78.00 Pure hypercholesterolemia, unspecified; J45.909 Unspecified asthma, uncomplicated; E55.9 Vitamin D deficiency, unspecified; Z87.442 Personal history of urinary calculi; Z85.850 Personal history of malignant neoplasm of thyroid; Z90.49 Acquired absence of other specified parts of digestive tract; Z79.899 Other long term (current) drug therapy
CPT/HCPCS: 50590; 74018; J3010

== ENCOUNTER → 2022-12-15 06:22 | Outpatient (BNV) | payer OTHER, SELFPAY | PROVIDERS: PCP Internal Medicine; Visit Provider Urology | DX: N20.0 Calculus of kidney (principal) | CPT/HCPCS: 50590 ==

== ENCOUNTER 2022-12-21 12:40 | Outpatient (AMB) | payer OTHER, SELFPAY ==
[2022-12-21 13:19] VITALS: BP 120/70; PULSE 90; RESP 18; O2SAT 98; BMI 43.5
--- NOTE | 2022-12-21 13:19 | A.OFFVIS_ITS ---
Intake Vital Signs 12/21/22 13:19 Height 5 ft 1 in Weight 230 lb BMI 43.5 BP 120/70 Blood Pressure Location Lt brachial Position Sitting Respiration 18 Pulse 90 Pulse Source Pulse Oximeter Pulse Oximetry (%) 98 Oxygen Delivery Method Room Air Intake Visit Reasons: OA right knee/ CONFIRMED Allergies oxycodone [OXYCODONE] Allergy (Intermediate, Verified 12/21/22 13:10) RASH,SHAKES, shakiness, body shaking, tremors HPI HPI Comments History of Present Illness Details Alicia is a very pleasant 47-year-old female who presents to the office today for evaluation and management of her left knee pain. Patient reports that she has been suffering with this pain since April 2021. Prior to this she had injured her knee at work and underwent left knee arthroscopic surgery. She states some pain improvement after surgery but there is some pain laterally that persists. She reports pain is worse with movement and area is tender to palpation. Pain today is rated as a 5/10, constant throughout the day. She has completed physical therapy for his pain that helped some, she continues with home exercise program but the pain does not improve. Currently she is using only topical gel cream for the pain. She has tried Tylenol and Motrin in the past without any improvement. In terms of muscle damage condition is described as aching and throbbing. Pain is negatively impacting patient's intermittent left, general activity, normal work, recreational activities and walking. Patient is also suffering with osteoarthritis of the right knee and new injury to the right knee. She is currently being treated by Orthopedics. She underwent cortisone injection about 4 weeks ago and is scheduled to start physical therapy for her right knee later today. [facility], [facility] Medical History (Updated 12/21/22 @ 13:35 by Padmini Garcia, PUSH[employer], CORPORATE LEGAL ASSISTANT) Left knee pain Remove/insert IUD Kidney stone Ovarian cyst Ureteral stone Right flank pain Memory deficit Acute pain Pain management Knee swelling Knee injury Asthma exacerbation Acute sinusitis Elevated LFTs Impaired fasting glucose Postsurgical hypothyroidism Benign essential hypertension COVID-19 vaccine administered Obesity Pericardial effusion Hypercholesterolemia History of thyroid cancer Vitamin D deficiency 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 Family history of von Willebrand disease Patellar fracture Closed right ankle fracture Lumbar disc herniation History of renal calculi Hypothyroid Vertigo Migraine Asthma Surgical History Hx of arthroscopy of left knee Hx of tubal ligation History of pubovaginal sling Hx of cystoscopy History of ankle surgery History of cholecystectomy History of bladder surgery History of thyroid surgery History of back surgery History of section Family History Daughter Von Willebrand disease Other Asthma Diabetes Emphysema of lung Family history of bladder cancer Family history of breast cancer Family history of lung cancer Family history of prostate cancer Social History Household Members: Family and Children Housing: House Do you presently have visiting nurse or other home services: No Alcohol intake: never Patient Tobacco Use Status: Never used Tobacco e-Cigarette/Vaping Use: Never Used Second Hand Smoke Exposure: No service: No Current occupational status: employed 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 Cognitive needs: No Hearing needs: No Vision needs: No Female Reproductive History Menstrual Age of Menarche: 14 Review of Systems Const All systems reviewed & are unremarkable except as noted in HPI and below Physical Exam Vital Signs: Last Vital Signs Pulse 90 12/21/22 13:19 Resp 18 12/21/22 13:19 BP 120/70 12/21/22 13:19 Pulse Ox 98 12/21/22 13:19 Oxygen Delivery Method Room Air 12/21/22 13:19 BMI result Body Mass Index 43.5 General: awake, alert, oriented. Answers questions appropriately. Fully engaged in examination. Skin: warm, dry, intact HEENT: Normocephalic. Hearing intact. Cardiac: External chest normal in appearance. Respiratory: No cough, audible wheezing or stridor. Abdomen: without gross distension. MS: No obvious swelling or deformities. Able to transition from sit to stand unassisted. Ambulates with bilaterally normal heel strike and toe off Left knee: tender to palpation lateral aspect Neurological: Oriented to person, place, time and situation. Thought process intact. No gait abnormalities appreciated. Psychiatric: Appropriate mood and affect. Good judgment and insight. Assessment & Plan Assessment & Plan (1) S/P left knee arthroscopy: Comment: left knee arthroscopy with medial and lateral partial meniscectomy and chondroplasty 05/05/2022 [place] Code(s): Z98.890 - Other specified postprocedural states (2) Osteoarthritis of left knee: Code(s): M17.12 - Unilateral primary osteoarthritis, left knee Qualifiers: Osteoarthritis type: unspecified Qualified Code(s): M17.12 - Unilateral primary osteoarthritis, left knee (3) Left knee pain: Code(s): M25.562 - Pain in left knee Qualifiers: Chronicity: chronic Qualified Code(s): M25.562 - Pain in left knee; G89.29 - Other chronic pain Plan Alicia is a very pleasant 47-year-old female who presented to the office today for evaluation and management of her left knee pain. She has been suffering with this pain since arthroscopic surgery in April 2022. She was referred here from Orthopedics for consideration of a nerve block. Patient has exhausted conservative therapy including nonsteroidal anti- inflammatory medication, Tylenol, physical therapy and home exercise program. Discussed options for treatment including diagnostic interventional testing, steroid injections, peripheral nerve stimulation with Sprint, RFA and more permanent neuromodulation. Informational pamphlets provided. The risks, consequences, alternatives, and benefits of various treatment options were discussed with the patient in great detail, including conservative management, injections and procedures. Will schedule patient for ultrasound-guided diagnostic left femoral nerve block with local anesthetic. If patient reports improvement in pain and functioning in the hours after the nerve block will plan for left femoral Sprint. All questions and concerns have been answered and patient agrees with the plan. Follow up after injection, sooner if needed. Coding Level of Care Code New Pt Level 4 (19177) Diagnoses S/P left knee arthroscopy Z98.890 Osteoarthritis of left knee, unspecified osteoarthritis type M17.12 Osteoarthritis type: unspecified Chronic pain of left knee M25.562; G89.29 Chronicity: chronic
== END 2022-12-21 13:30 | disposition home or self-care (01) ==
PROVIDERS: PCP Internal Medicine; Visit Provider Registered Nurse Emergency
DX: Z98.890 Other specified postprocedural states (principal); M17.12 Unilateral primary osteoarthritis, left knee; M25.562 Pain in left knee; G89.29 Other chronic pain
CPT/HCPCS: 99204

== ENCOUNTER → 2022-12-21 12:40 | Outpatient (BNVA) | payer OTHER, SELFPAY | PROVIDERS: PCP Internal Medicine; Visit Provider Registered Nurse Emergency ==

== ENCOUNTER 2023-01-13 16:32 | Emergency (ER) | payer OTHER, SELFPAY ==
--- NOTE | ~2023-01-13 | US_ITS ---
EXAMINATION: US RETROPERITONEAL LIMITED (RENAL ONLY) CLINICAL INFORMATION: Flank pain, recent right lithotripsy. COMPARISON: Renal ultrasound 11/19/2022. TECHNIQUE: Real-time imaging of the kidneys. FINDINGS: RIGHT KIDNEY: 13.3 x 5 x 5.6 cm (SAG x AP x TRV). The kidney is normal in size, contour, and echogenicity. Renal cortical thickness is normal. No calculi or focal parenchymal lesions. No hydronephrosis. LEFT KIDNEY: 12.2 x 6.9 x 6.3 cm (SAG x AP x TRV). The kidney is normal in size, contour, and echogenicity. Renal cortical thickness is normal. No calculi or focal parenchymal lesions. No hydronephrosis. US/US renal BI IMPRESSION: No acute sonographic abnormalities.
[2023-01-13 16:56] VITALS: BP 150/91; PULSE 91; RESP 18; TEMP 36.1; O2SAT 99; BMI 42.1
--- NOTE | 2023-01-13 17:00 | ED_ITS ---
HPI - Abdominal Pain General Chief Complaint: Abdominal Pain Stated Complaint: back pain hx of kidney stones Time Seen by Provider: 01/13/23 17:28 Source: patient Mode of arrival: ambulatory Limitations: no limitations History of Present Illness HPI narrative: Patient is a 47-year-old female with history of renal calculi presenting to the emergency department with worsening right flank pain over the past several days. Patient reports that she is a patient of Dr. Winslow and that he recently performed lithotripsy for right renal stones appproximately 4 weeks prior. She denies any placement of stents at that time. She states that she contacted the urology office and was told to come to the ED. She denies fevers. Reports nausea but denies vomiting. MD elicited complaint: flank pain Pertinent past history: kidney stones Onset (ago): day(s) Pain Consistency: constant Location: R flank Severity: severe Pain scale (0-10): 10 Quality: sharp Radiation: none Exacerbating factors: nothing Relieving factors: nothing Context: recent surgery/procedure Associated symptoms: nausea Related Data Home Medications Medication Instructions Recorded Confirmed levonorgestrel 21 mcg/24 hours (8 intrauterine 11/03/22 11/25/22 yrs) 52 mg intrauterine device (Mirena) Previous Rx's Medication Instructions Recorded sumatriptan succinate 100 mg tablet 100 mg PO DAILY PRN for migraine 12/07/20 #10 tabs blood pressure monitor #1 ea 03/05/21 pyridoxine (vitamin B6) 100 mg 100 mg PO DAILY 90 days #90 tabs 04/21/22 tablet cholecalciferol (vitamin D3) 25 25 mcg PO DAILY 90 days #90 tabs 05/02/22 mcg (1,000 unit) tablet lisinopril 40 mg tablet 40 mg PO DAILY 30 days #90 tabs 05/13/22 meclizine 25 mg tablet 25 mg PO TID PRN for dizziness #90 09/18/22 tabs amlodipine 5 mg tablet 5 mg PO DAILY #30 tabs 10/18/22 levothyroxine 25 mcg capsule 25 mcg PO DAILY 90 days #90 caps 11/01/22 (Tirosint) albuterol sulfate 90 mcg/actuation 2 puff inhalation Q6H PRN 11/03/22 aerosol inhaler (ProAir HFA) shortness of breath or wheezing 30 days #8.5 grams diclofenac sodium 1 % topical gel 4 g topical QID #100 grams 11/16/22 (Voltaren Arthritis Pain) cholestyramine-aspartame 4 gram 4 g PO BID #231 grams 11/17/22 oral powder (Prevalite) levothyroxine 100 mcg capsule 100 mcg PO DAILY 90 days #90 caps 11/17/22 (Tirosint) levothyroxine 150 mcg capsule 150 mcg PO DAILY 90 days #90 caps 11/17/22 (Tirosint) morphine 15 mg immediate release 15 mg PO Q8H PRN pain (scale score 01/13/23 tablet 7-10) 3 days #9 tabs tamsulosin 0.4 mg capsule (Flomax) 0.4 mg PO DAILY #14 caps 01/13/23 Allergies Allergy/AdvReac Type Severity Reaction Status Date / Time oxycodone [OXYCODONE] Allergy Intermediate RASH,SHAKES, Verified 12/21/22 13:10 shakiness, body shaking, tremors Review of Systems Review of Systems As per HPI. Yes all other systems are reviewed and are negative Constitutional: Reports as per HPI [facility] Past Medical History Medical History (Updated 01/14/23 @ 00:01 by Annmarie Melara) Left knee pain Remove/insert IUD Kidney stone Ovarian cyst Ureteral stone Right flank pain Memory deficit Acute pain Pain management Knee swelling Knee injury Asthma exacerbation Acute sinusitis Elevated LFTs Impaired fasting glucose Postsurgical hypothyroidism Benign essential hypertension COVID-19 vaccine administered Obesity Pericardial effusion Hypercholesterolemia History of thyroid cancer Vitamin D deficiency 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 Family history of von Willebrand disease Patellar fracture Closed right ankle fracture Lumbar disc herniation History of renal calculi Hypothyroid Vertigo Migraine Asthma Surgical History Hx of arthroscopy of left knee Hx of tubal ligation History of pubovaginal sling Hx of cystoscopy History of ankle surgery History of cholecystectomy History of bladder surgery History of thyroid surgery History of back surgery History of section Family History Family History Daughter Von Willebrand disease Other Asthma Diabetes Emphysema of lung Family history of bladder cancer Family history of breast cancer Family history of lung cancer Family history of prostate cancer Social History Social History Household Members: Family and Children Housing: House Do you presently have visiting nurse or other home services: No Alcohol intake: never Patient Tobacco Use Status: Never used Tobacco Smoked in Last 30 Days: No e-Cigarette/Vaping Use: Never Used Second Hand Smoke Exposure: No Use of substances other than those prescribed or required for medical reasons: No Advance Directives: No Advance Directives Information Provided: No service: No Current occupational status: employed 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 Cognitive needs: No Hearing needs: No Vision needs: No Physical Exam ED Vital Signs: Vital Signs - 24 hr 01/13/23 16:56 01/13/23 18:43 Temperature 96.9 F Pulse Rate 91 Respiratory Rate 18 16 Blood Pressure 150/91 H Pulse Oximetry 99 Oxygen Delivery Method Room Air BMI result Body Mass Index 42.1 Vital signs have been reviewed and appear to be correct. Blood pressure elevated, likely secondary to pain. Heart rate normal. Respiratory rate normal. Temperature normal. Oxygen saturation normal. Const General: cooperative and other (crying, appears uncomfortable) Orientation/consciousness: oriented to person, oriented to place, oriented to time and patient oriented x3 Limitations: no limitations HENMT Head: Yes normocephalic and Yes atraumatic Ears: external ears normal General nose exam: Normal external nose present Face and sinus: Yes face symmetric Mouth: oropharynx normal and moist mucous membranes Throat: Yes uvula midline Eyes Pupils: Equal, round and reactive pupils present Neck Neck: Yes normal visual inspection and Yes supple Resp Effort & Inspection: normal respiratory effort and able to speak in complete sentences Auscultation: clear to auscultation bilaterally Cardio Rate: regular rate Rhythm: regular rhythm Heart sounds: S1 normal heart sound present and S2 normal heart sound present GI Palpation (GI): Soft to palpation and nontender Auscultation: normoactive bowel sounds General: Yes CVA tenderness on the right Back/Spine/Pelvis Back: CVA tenderness Skin General skin exam: elasticity normal and turgor normal Neuro General: oriented to person, oriented to place, oriented to time, patient oriented x3, moves all extremities, no focal motor deficits and CN's II-XI intact bilaterally Cranial nerves: Yes Equal, round and reactive pupils present Cognition (Neuro): normal cognition Extrem General: Yes full ROM, Yes no pedal edema and Yes no calf tenderness Psych Mental Status: mental status grossly normal Affect: normal affect Thought process: Normal thought process present Course Course Course Narrative: RME: 47-year-old female the past medical history of asthma, HLD, hypothyroid, migraines, vertigo, renal stones s/p lithotripsy by Dr. Winslow 4 weeks ago presenting to the ED complaining of right flank pain, nausea and dark urine worsening over the past week. Patient tearful, appears very uncomfortable, abdomen soft nontender, right CVAT noted Labs, UA, ultrasound ordered Full HPI, ROS and PE to be performed by primary ED provider. -1900--mild leukocytosis of 11.0. Labs otherwise reassuring. -UA with blood and RBCs. Contaminated. Not infected. > on re-evaluation patient appears comfortable, discussed results including need close follow-up with Urology. Will DC home with pain control and Flomax. Results discussed with patient including worrisome signs and symptoms and strict return precautions, and when to return to the emergency department. They verbalized understanding and feel safe for discharge at this time. Medical Decision Making Medical Decision Making [facility] Narrative: Patient is a 47-year-old female with history of renal calculi presenting to the emergency department with worsening right flank pain over the past several days. On exam patient is awake, A+Ox3, appears uncomfortable, crying, BP elevated, likely secondary to pain, VS otherwise WNL, afebrile, normal neurological exam without focal deficits, physical exam findings as above. Given reported symptoms and physical exam findings, initial differential includes renal colic, renal calculi, UTI/pyelonephritis. Ultrasound notable for no acute abnormalities. My interpretation is in agreement with the radiologist's interpretation. Discussed case with Dr. Fuller from urology who feels patient is stable for discharge home with pain control if labs and UA do not show evidence of infection and she can follow up outpatient in the office. Patient signed out to PEGGY Hope pending labs and UA. Differential Diagnosis Differential Diagnoses: The differential diagnosis associated with the presentation includes As per MDM. Consult Healthcare Provider Management of the patient was discussed with: Traffic Attendant (Dr. Fuller) Lab Data 01/13/23 18:25 01/13/23 18:25 Labs: Lab Results 01/13/23 01/13/23 Range/Units 18:21 18:25 WBC 11.0 H (4.8-10.8) X10*3/uL RBC 4.24 (4.20-5.50) X10*6/uL Hgb 12.8 (12.0-16.0) g/dl Hct 37.6 (37.0-47.0) % MCV 88.7 (80.0-98.0) fL MCH 30.2 (27.0-33.0) pg MCHC 34.0 (31.0-35.0) g/dl RDW 11.9 (11.0-16.0) % Plt Count 373 (160-400) X10*3/uL MPV 9.6 (9.4-12.3) fL Immature Gran % (Auto) 0.5 H (0.0-0.4) % Neut % (Auto) 63.6 (45-73) % Lymph % (Auto) 26.8 (20-40) % [place]aver % (Auto) 7.6 (2-11) % Eos % (Auto) 1.0 (0-4) % Baso % (Auto) 0.5 (0-2) % Lymph # (Auto) 3.0 (1.2-4.9) X10*3/uL [place] # (Auto) 0.8 (0.1-1.2) X10*3/uL Eos # (Auto) 0.1 (0.0-0.4) X10*3/uL Baso # (Auto) 0.1 (0.0-0.2) X10*3/uL Abs Immat Gran (auto) 0.05 H (0.00-0.03) X10*3/uL Absolute Neuts (auto) 7.0 (2.0-8.3) x10*3/uL Absolute Nucleated RBC 0.000 (0.0-0.012) X10*3/uL Nucleated RBC % (auto) 0.0 (0.0-0.2) /100WBC Sodium 141 (135-145) mmol/L Potassium 3.4 (3.3-5.1) mmol/L Chloride 104 (96-108) mmol/L Carbon Dioxide 25 (22-29) mmol/L Anion Gap 15 (12-20) BUN 10 (9-16) mg/dL Creatinine 0.54 (0.5-1.4) mg/dL Estim Creat Clear Calc 143.6 Estimated GFR > 60 Random Glucose 91 (60-115) mg/dL Calcium 8.9 (8.4-10.2) mg/dL Magnesium 1.6 (1.6-2.6) mg/dL Total Bilirubin 0.3 (0.0-1.0) mg/dL Direct Bilirubin 0.1 (0.0-0.5) mg/dL AST 25 (5-31) U/L ALT 43 H (0-31) U/L Alkaline Phosphatase 78 (39-117) U/L Total Protein 7.0 (6.5-8.0) g/dL Albumin 3.9 (3.5-5.0) g/dL Lipase 20 (8-78) U/L Urine Color Yellow Urine Appearance Clear Urine pH 5.5 (5.0-9.0) Ur Specific [place] 1.020 (1.005-1.025) Urine Protein 30 (1+) H (Neg-Trace) mg/dL Urine Glucose (UA) Negative (Negative) mg/dL Urine Ketones Negative (Negative) mg/dL Urine Blood Large (3+) H (Negative) Urine Nitrite Negative (Negative) Ur Leukocyte Esterase Negative (Negative) Urine RBC 11-20 H (0-2) /HPF Urine WBC 0-5 (0-5) /HPF Ur Squamous Epith Cells 6-10 (0-2) /HPF Urine Bacteria Trace (None Seen) Hyaline Casts 0-2 (0-2) /LPF Urine Test NEGATIVE (NEGATIVE) Independent Interpretation I performed an independent interpretation of an: Ultrasound Interpretation: No acute abnormalities. Radiology Impression Discussion of test interpretation with radiology: I have reviewed the radiologist's reading. Radiologist Impression: US/US renal BI IMPRESSION: No acute sonographic abnormalities. External Record Review External record reviewed: Inpatient record, Office record and Outpatient record Prescription Management I considered prescription management with: Pain Medication Medications Administered Discontinued Medications Generic Name Dose Route Start Last Admin Trade Name Freq PRN Reason Stop Dose Admin Sodium Chloride 1,000 mls @ 999 mls/hr 01/13/23 17:30 01/13/23 20:21 Ns IV 01/13/23 18:30 Infused .Q1H1M LUZ MARIA Infusion Ketorolac Tromethamine 15 mg 01/13/23 17:29 01/13/23 18:39 Ketorolac Tromethamine 15 Mg/Ml Vial IVPUSH 01/13/23 17:30 15 mg ONCE ONE Administration Morphine Sulfate 4 mg 01/13/23 17:29 01/13/23 18:43 Morphine Sulfate 4 Mg/Ml Cartridge IVPUSH 01/13/23 17:30 4 mg ONCE ONE Administration Protocol Ondansetron HCl 4 mg 01/13/23 17:29 01/13/23 18:39 Ondansetron Hcl 4 Mg/2 Ml Vial IVPUSH 01/13/23 17:30 4 mg ONCE ONE Administration Discharge Plan Discharge Clinical Impression: Acute flank pain Patient Disposition: Home, Self-Care Instructions: Flank Pain (ED) Additional Instructions: Your blood work is reassuring. Her urine has blood in it, but is not infected Your ultrasound is unremarkable You need to follow-up with Urology, call tomorrow to make an appointment Morphine is an opiate pain medication, take only when pain is severe next 3 days. In addition take Flomax If symptoms persist or worsen return to the ED Prescriptions: New tamsulosin [Flomax] 0.4 mg capsule 0.4 mg PO DAILY Qty: 14 0RF morphine 15 mg tablet 15 mg PO Q8H PRN (Reason: pain (scale score 7-10)) 3 Days Qty: 9 0RF Rx Instructions: Partial Fill upon patient request. No Action sumatriptan succinate 100 mg tablet 100 mg PO DAILY PRN (Reason: for migraine) Qty: 10 2RF cholecalciferol (vitamin D3) 25 mcg (1,000 unit) tablet 25 mcg PO DAILY 90 Days Qty: 90 3RF lisinopril 40 mg tablet 40 mg PO DAILY 30 Days Qty: 90 3RF meclizine 25 mg tablet 25 mg PO TID PRN (Reason: for dizziness) Qty: 90 1RF amlodipine 5 mg tablet 5 mg PO DAILY Qty: 30 2RF levothyroxine [Tirosint] 25 mcg capsule 25 mcg PO DAILY 90 Days Qty: 90 3RF Rx Instructions: 100 +150 +25 mcg = 275 mcg albuterol sulfate [ProAir HFA] 90 mcg/actuation HFA aerosol inhaler 2 puff inhalation Q6H PRN (Reason: shortness of breath or wheezing) 30 Days Qty: 8.5 3RF diclofenac sodium [Voltaren Arthritis Pain] 1 % gel 4 g topical QID Qty: 100 1RF Rx Instructions: apply to single knee, ankle, foot; for foot includes sole/toes/top of foot levothyroxine [Tirosint] 150 mcg capsule 150 mcg PO DAILY 90 Days Qty: 90 3RF Rx Instructions: 100 mcg + 150 mcg + 25 mcg = 275 mcg QD levothyroxine [Tirosint] 100 mcg capsule 100 mcg PO DAILY 90 Days Qty: 90 3RF Rx Instructions: 100 mcg + 150 mcg + 25 mcg. daily dose is 275 mcg Prevalite 4 gram powder 4 g PO BID Qty: 231 3RF Rx Instructions: administer w/meal; avoid other meds within 1hr before or 4-6hr after dose (DME) blood pressure monitor Kit See Rx Instructions .ROUTE .MEDSUPPLY Qty: 1 0RF Rx Instructions: As directed pyridoxine (vitamin B6) 100 mg tablet 100 mg PO DAILY 90 Days Qty: 90 3RF Mirena 21 mcg/24 hours (8 yrs) 52 mg intrauterine device intrauterine Referrals: [facility] [Provider Group] - 1 day Interventions: ED Discharge Assessment Last Done: 01/13/23 20:21 Discharge Date/Time: 01/13/23 20:22
[2023-01-13] MEDS: 0.9 % Sodium Chloride 1,000 ML 999 ML IV (18:31)
[2023-01-13] MEDS: Ketorolac Tromethamine 15 MG/ML VIAL IVPUSH (18:39)
[2023-01-13] MEDS: ondansetron HCL 4 MG/2 ML VIAL IVPUSH (18:39)
[2023-01-13 18:40] LABS: MANUAL DIFF FLAG NO
[2023-01-13 18:43] VITALS: RESP 16
[2023-01-13 18:43] LABS: Basophils Absolute Auto 0.1 X10*3/uL (0.0-0.2); Basophils Percent Auto 0.5 % (0-2); Eosinophils Absolute Auto 0.1 X10*3/uL (0.0-0.4); Hematocrit 37.6 % (37.0-47.0); Hemoglobin 12.8 g/dl (12.0-16.0); Imm Gran Abs Auto 0.05 X10*3/uL (0.00-0.03); Imm Gran Pct Auto 0.5 % (0.0-0.4); Lymphocytes Percent Auto 26.8 % (20-40); Mean Corpuscular Hemoglobin 30.2 pg (27.0-33.0); Mean Corpuscular Volume 88.7 fL (80.0-98.0); Mean Platelet Volume 9.6 fL (9.4-12.3); Monocytes Absolute Auto 0.8 X10*3/uL (0.1-1.2); Monocytes Percent Auto 7.6 % (2-11); Neutrophils Percent Auto 63.6 % (45-73); Platelet Count 373 X10*3/uL (160-400); Red Blood Count 4.24 X10*6/uL (4.20-5.50); Red Cell Distribution Width 11.9 % (11.0-16.0)
[2023-01-13] MEDS: Morphine Sulfate 4 MG/ML CARTRIDGE IVPUSH (18:43)
[2023-01-13 18:44] LABS: Appearance Urine Clear; Color Urine Yellow; Glucose Urine UA Negative (Negative); Leukocyte Esterase Urine Negative (Negative); Nitrite Urine Negative (Negative); PH 5.5 (5.0-9.0); UMIC TRIGGER UACC YES; Urine Blood Large (3+) (Negative); Urine Ketones Negative (Negative); Urine Protein 30 (1+) mg/dL (Neg-Trace)
[2023-01-13 18:45] LABS: Urine Pregnancy NEGATIVE (NEGATIVE)
[2023-01-13 18:46] LABS: UPreg QC Valid YES
[2023-01-13 18:49] LABS: Bacteria Urine Trace (None Seen); Hyaline Casts Urine 0-2 /LPF (0-2); WBC Urine 0-5 /HPF (0-5)
--- NOTE | 2023-01-13 18:51 | PC.NURSE ---
22 G IV placed to RAC. tolerated well. labs drawn and sent. UA obtained and sent. pt medicated per may. currently resting quietly on stretcher in no apparent distress. pt partner at bedside. call dill within pt reach. all pt needs met cydney.
[2023-01-13 18:58] LABS: Alanine Aminotransferase 43 U/L (0-31); Albumin Level 3.9 g/dL (3.5-5.0); Alkaline Phosphatase 78 U/L (39-117); Anion Gap 15 (12-20); Aspartate Amino Transferase 25 U/L (5-31); Bilirubin Direct 0.1 mg/dL (0.0-0.5); Bilirubin Total 0.3 mg/dL (0.0-1.0); Blood Urea Nitrogen 10 mg/dL (9-16); Calcium 8.9 mg/dL (8.4-10.2); Carbon Dioxide 25 mmol/L (22-29); Chloride 104 mmol/L (96-108); Creatinine Clr Calc Pharmacy 143.6; Estimated Glomerular Filt Rate > 60; Glucose Random 91 mg/dL (60-115); Lipase 20 U/L (8-78); Magnesium 1.6 mg/dL (1.6-2.6); Potassium 3.4 mmol/L (3.3-5.1); Sodium 141 mmol/L (135-145)
[2023-01-13 20:20] VITALS: BP 141/99; PULSE 77; RESP 16; TEMP 36.6; O2SAT 98
== END 2023-01-13 20:22 | disposition home or self-care (01) ==
PROVIDERS: Physician Assistant; Emergency Provider Emergency Medicine; PCP Internal Medicine
DX: R10.9 Unspecified abdominal pain (principal); Z87.442 Personal history of urinary calculi
CPT/HCPCS: 36415; 76775; 80048; 80076; 81001; 81025; 83690; 83735; 85025; 96361; 96374; 96375; 99284; J1885; J2270; J2405

== ENCOUNTER 2023-01-21 07:00 | Outpatient (RCR) | payer OTHER, SELFPAY ==
--- NOTE | 2022-12-22 16:08 | MHC.PT.EP ---
[facility] [place] Office [place] [facility] [place] [facility] [address] Ezio Aldana [address] [phone] F: [phone] F: [phone] F: [phone] F: [phone] Physical Therapy Plan of Care Date of Evaluation: 12/21/22 Date of Surgery: N/A Diagnosis: unspecified internal derangement of right knee Assessment: Pt is a pleasant 47yo F who presents to PT with R knee pain. Imaging revealed right medial meniscus tear. She presents to PT with current impairments in pain, decreased R knee ROM, decreased LE strength, and impaired gait. She is limited functionally by squatting, prolonged sitting, prolonged standing, prolonged walking > 30-45 min, and stair navigation. She is an excellent candidate for skilled PT in order to address current impairments to facilitate return to PLOF. She is recommended to be seen 2x/week for 4 weeks and will be reassessed at that time. Frequency and Duration: The patient will be seen 2x/week for 4 weeks Short Term Goals: Pt will be I with HEP to promote self management of symptoms Pt will achieve full knee extension RLE Skilled Nursing Goals: Pt will achieve full ROM and strength all planes of R knee Pt will demonstrate ability to ascend/descend 1 flight of stairs with reciprocal pattern safely Pt will demonstrate improvements in function as evidenced by statistically significant improvement in LEFI outcome measure Treatment Plan: Modalities to reduce pain, spasms and effusion. Manual therapy to restore motion and function. Therapeutic exercise to improve strength and flexibility. Neuromuscular re-education for posture and balance. Therapeutic activities to return to functional activities of daily living. Electronically signed by: Marline Guevara, PT, DPT Please sign and return to therapist. Thank you for your referral.
--- NOTE | 2023-07-04 11:52 | MHC.PT.DC ---
[facility] [place] Office [place] Office [place] Office [address] Ezio Aldana [address] [phone] F: [phone] F: [phone] F: [phone] F: [phone] Physical Therapy Discharge Report Diagnosis: unspecified internal derangement of right knee Date of Surgery: N/A Date of Evaluation: 12/21/22 Date of Discharge: 07/04/23 Treatments to Date: 7 Cancellations to Date: 4 No Shows to Date: Discharge Status: Achieved Goals Improved Function Independent with HEP Discharge Summary: Pt was seen for PT from 12/21/22-01/21/23. Her last attended and scheduled PT treatment was 01/21/23 From last PT treatment note on 01/21/23 by KP: ROM AND STRENGTH HAVE IMPROVED ERNESTO, HAS MET GOALS OF CURRENT PT PLAN Electronically signed by: Marline Guevara, PT, DPT Please sign and return to therapist. Thank you for your referral.
== END 2023-07-04 11:51 | disposition home or self-care (01) ==
LOC: HO.PT 07:00
PROVIDERS: PCP Internal Medicine; Visit Provider Physician Assistant
DX: M23.91 Unspecified internal derangement of right knee (principal)
CPT/HCPCS: 97110; 97140; 97162

== ENCOUNTER 2023-01-24 08:03 | Outpatient (AMB) | payer OTHER, SELFPAY ==
[2023-01-24 08:10] VITALS: BP 136/77; PULSE 88; RESP 12; O2SAT 100; BMI 45.2
--- NOTE | 2023-01-24 08:10 | A.OFFVIS_ITS ---
Intake Vital Signs 01/24/23 08:10 Height 5 ft 1 in Weight 239 lb BMI 45.2 BP 136/77 Blood Pressure Location Lt brachial Position Sitting Respiration 12 Pulse 88 Pulse Source Pulse Oximeter Pulse Oximetry (%) 100 Oxygen Delivery Method Room Air Intake Visit Reasons: left Dx femoral NB /confirmed Allergies oxycodone [OXYCODONE] Allergy (Intermediate, Verified 01/24/23 16:52) RASH,SHAKES, shakiness, body shaking, tremors Medication List - Last Reconciled 01/24/23 by Samia Reyna LPN albuterol sulfate 90 mcg/actuation (ProAir HFA) 2 puffs inhalation Q6H PRN 30 days amlodipine 5 mg PO DAILY blood pressure monitor As directed cholecalciferol (vitamin D3) 25 mcg PO DAILY 90 days cholestyramine-aspartame 4 gram (Prevalite) 4 grams PO BID diclofenac sodium 1% (Voltaren Arthritis Pain) 4 grams topical QID levonorgestrel (Mirena) intrauterine levothyroxine (Tirosint) 25 mcg PO DAILY 90 days levothyroxine (Tirosint) 150 mcg PO DAILY 90 days levothyroxine (Tirosint) 100 mcg PO DAILY 90 days lisinopril 40 mg PO DAILY 30 days meclizine 25 mg PO TID PRN pyridoxine (vitamin B6) 100 mg PO DAILY 90 days sumatriptan succinate 100 mg PO DAILY PRN tamsulosin (Flomax) 0.4 mg PO DAILY HPI left Dx femoral NB /confirmed HPI Details 47-year-old female who presents today to the office for a left diagnostic saphenous nerve block for medial knee pain secondary to the medial meniscus injury that did not respond to arthroscopic surgery. Denies any recent cough, cold, infection, fever or other significant changes in medical history since last office visit. [facility] Medical History (Updated 01/24/23 @ 17:41 by Tamela Pelaez MD) Right flank pain Left knee pain Remove/insert IUD Kidney stone Ovarian cyst Ureteral stone Memory deficit Acute pain Pain management Knee swelling Knee injury Asthma exacerbation Acute sinusitis Elevated LFTs Impaired fasting glucose Postsurgical hypothyroidism Benign essential hypertension COVID-19 vaccine administered Obesity Pericardial effusion Hypercholesterolemia History of thyroid cancer Vitamin D deficiency 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 Family history of von Willebrand disease Patellar fracture Closed right ankle fracture Lumbar disc herniation History of renal calculi Hypothyroid Vertigo Migraine Asthma Surgical History Hx of arthroscopy of left knee Hx of tubal ligation History of pubovaginal sling Hx of cystoscopy History of ankle surgery History of cholecystectomy History of bladder surgery History of thyroid surgery History of back surgery History of section Family History Daughter Von Willebrand disease Other Asthma Diabetes Emphysema of lung Family history of bladder cancer Family history of breast cancer Family history of lung cancer Family history of prostate cancer Social History Household Members: Family and Children Housing: House Do you presently have visiting nurse or other home services: No Alcohol intake: never Patient Tobacco Use Status: Never used Tobacco e-Cigarette/Vaping Use: Never Used Second Hand Smoke Exposure: No service: No Current occupational status: employed 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 Cognitive needs: No Hearing needs: No Vision needs: No Female Reproductive History Menstrual Age of Menarche: 14 Review of Systems Const All systems reviewed & are unremarkable except as noted in HPI and below Physical Exam Vital Signs: Last Vital Signs Pulse 88 01/24/23 08:10 Resp 12 01/24/23 08:10 BP 136/77 01/24/23 08:10 Pulse Ox 100 01/24/23 08:10 Oxygen Delivery Method Room Air 01/24/23 08:10 BMI result Body Mass Index 45.2 General: Appears afebrile. Alert and oriented. Mood and affect appropriate. Follows and participates in conversation appropriately. Respiratory effort is unlabored. Able to transition from sit to stand unassisted. Ambulates with bilaterally normal heel strike and toe off. Ultrasound exam of the knee reveals an extruded medial meniscus with adjacent edema in the tissue. Office Procedures Nerve Block Details: Left diagnostic saphenous nerve block at adductor canal, ultrasound guided After obtaining written consent, pre-procedure blood pressure and heart rate were stable and recorded in the nursing record. The patient was placed supine on the table. The medial thigh area overlying the adductor canal was widely prepped with chloraprep, allowed to dry and sterilely draped. Using ultrasound, the appropriate landmarks including the femoral artery and saphenous nerve were identified. The skin overlying the target was anesthetized with 1% lidocaine. A 21 gauge 100 mm [employer] needle was advanced under sonog raphic guidance to the adductor canal. Aspiration was negative for heme and synovial fluid. 10 cc of lidocaine 1% was injected around the saphenous nerve. The needles were removed, skin cleansed and a sterile bandage was applied. The patient tolerated the procedure well and no complications were encountered. Following the procedure the patient's vital signs and knee strength were stable. The patient was discharged home in good condition with post-procedural instructions. Time Out: Immediately prior to the procedure, the following was verbally confirmed that there is a signed consent form and that the correct patient, planned procedure, site and side are consistent with documentation and that necessary equipment and/or blood products are available prior to the start of the case. Complications: none EBL: <1 cc Note: An ultrasound image of the injection was taken and stored in the permanent record. [id number] - Saphenous (Left sided, ultrasound guided) Procedure code (CPT) selection complete Results Reviewed Results Reviewed: No imaging is available for review. Assessment & Plan Assessment & Plan (1) S/P left knee arthroscopy: Comment: left knee arthroscopy with medial and lateral partial meniscectomy and chondroplasty 05/05/2022 [place] Code(s): Z98.890 - Other specified postprocedural states (2) Left knee pain: Code(s): M25.562 - Pain in left knee Qualifiers: Chronicity: chronic Qualified Code(s): M25.562 - Pain in left knee; G89.29 - Other chronic pain Plan Patient is status post left diagnostic saphenous nerve block at adductor canal, ultrasound guided. Patient tolerated procedure well and was discharged home in stable condition with discharge instructions. All questions were answered. Ultrasound exam in the office also revealed extruded medial meniscus tissue. Given her age and work situation, I think she would benefit from intra-articular as well as intrameniscal injections of platelet rich plasma to help regenerate and heel her torn meniscus. She has not benefited from arthroscopic surgery. She is also morbidly obese and would benefit from weight loss to arrest rapid progression of potential osteoarthritis in the future. I discussed these measures with her. For now we will focus on relief of pain be a peripheral nerve stimulation but going forward I would recommended trial of PRP therapy. Scribed for Dr. Saldivar by Eldon Fisher, medical research tech, on 01/24/2023. I, Dr. Saldivar, have personally reviewed and agree with the information entered by the scribe. Coding Level of Care Code Procedure Only Diagnoses S/P left knee arthroscopy Z98.890 Chronic pain of left knee M25.562; G89.29 Chronicity: chronic CPT Codes Nerve Block - Nerve Block 10: 75973 - Saphenous ([id number])
== END 2023-01-24 08:46 | disposition home or self-care (01) ==
PROVIDERS: PCP Internal Medicine; Visit Provider Internal Medicine
DX: M25.562 Pain in left knee (principal)
CPT/HCPCS: 64450

== ENCOUNTER → 2023-01-24 08:03 | Outpatient (BNVA) | payer OTHER, SELFPAY | PROVIDERS: PCP Internal Medicine; Visit Provider Internal Medicine | DX: M25.562 Pain in left knee (principal); G89.29 Other chronic pain; Z98.890 Other specified postprocedural states | CPT/HCPCS: 64450 ==

== ENCOUNTER 2023-01-24 16:49 | Outpatient (AMB) | payer OTHER, SELFPAY ==
[2023-01-24 16:52] VITALS: BP 122/62; PULSE 80; O2SAT 98; BMI 43.3
--- NOTE | 2023-01-24 16:52 | MHC.PC.OV ---
Vital Signs 01/24/23 16:52 Height 5 ft 1 in Weight 229 lb BMI 43.3 BP 122/62 Blood Pressure Location Lt brachial Position Sitting Pulse 80 Pulse Source Pulse Oximeter Pulse Oximetry (%) 98 Oxygen Delivery Method Room Air Intake Visit Reasons: HTN, dysphagia Bandsaw Operator Required: No Allergies oxycodone [OXYCODONE] Allergy (Intermediate, Verified 01/24/23 16:52) RASH,SHAKES, shakiness, body shaking, tremors Medication List - Last Reconciled 01/24/23 by Tamela Pelaez MD albuterol sulfate 90 mcg/actuation (ProAir HFA) 2 puffs inhalation Q6H PRN 30 days amlodipine 5 mg PO DAILY blood pressure monitor As directed cholecalciferol (vitamin D3) 25 mcg PO DAILY 90 days cholestyramine-aspartame 4 gram (Prevalite) 4 grams PO BID diclofenac sodium 1% (Voltaren Arthritis Pain) 4 grams topical QID levonorgestrel (Mirena) intrauterine levothyroxine (Tirosint) 25 mcg PO DAILY 90 days levothyroxine (Tirosint) 150 mcg PO DAILY 90 days levothyroxine (Tirosint) 100 mcg PO DAILY 90 days lisinopril 40 mg PO DAILY 30 days meclizine 25 mg PO TID PRN pyridoxine (vitamin B6) 100 mg PO DAILY 90 days sumatriptan succinate 100 mg PO DAILY PRN tamsulosin (Flomax) 0.4 mg PO DAILY Tobacco use date assessed: 01/24/23 HPI HTN, dysphagia HPI Details 47-year-old obese female with a history of thyroid cancer now postsurgical hypothyroidism impaired glucose tolerance, nephrolithiasis hypertension coming in for follow-up June 2022 last seen. Review of the notes has been followed up by pain management for saphenous nerve block left done in 01/24/2023 for the knee pain.. Patient also was seen in the emergency room recently(1 month ago) had lithotripsy for the right renal stones for (right ESWL Dr. Winslow November 2022) treated with tamsulosin and morphine. There was a question of dysphagia and November barium swallow done revealing negative results. ovarian cyst - will have surgery bilateral fallopian tube surgery R ovary [facility] 02/08/2023 [facility] Medical History (Updated 01/24/23 @ 17:41 by Tamela Pelaez MD) Right flank pain Left knee pain Remove/insert IUD Kidney stone Ovarian cyst Ureteral stone Memory deficit Acute pain Pain management Knee swelling Knee injury Asthma exacerbation Acute sinusitis Elevated LFTs Impaired fasting glucose Postsurgical hypothyroidism Benign essential hypertension COVID-19 vaccine administered Obesity Pericardial effusion Hypercholesterolemia History of thyroid cancer Vitamin D deficiency 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 Family history of von Willebrand disease Patellar fracture Closed right ankle fracture Lumbar disc herniation History of renal calculi Hypothyroid Vertigo Migraine Asthma Surgical History Hx of arthroscopy of left knee Hx of tubal ligation History of pubovaginal sling Hx of cystoscopy History of ankle surgery History of cholecystectomy History of bladder surgery History of thyroid surgery History of back surgery History of section Family History Daughter Von Willebrand disease Other Asthma Diabetes Emphysema of lung Family history of bladder cancer Family history of breast cancer Family history of lung cancer Family history of prostate cancer Social History Household Members: Family and Children Housing: House Do you presently have visiting nurse or other home services: No Alcohol intake: never Patient Tobacco Use Status: Never used Tobacco e-Cigarette/Vaping Use: Never Used Second Hand Smoke Exposure: No service: No Current occupational status: employed 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 Cognitive needs: No Hearing needs: No Vision needs: No Female Reproductive History Menstrual Age of Menarche: 14 Questionnaire Thrive Questionnaire Date Thrive assessed: 04/21/22 AUDIT C Alcohol Use Questionnaire (AUDIT-C) 1. How often do you have a drink containing alcohol?: Monthly or less 2. How many drinks containing alcohol do you have on a typical day when you are drinking?: 1 or 2 3. How often do you have six or more drinks on one occasion?: Never Total Score: 1 ACACIA-7 AMB Questionnaire ACACIA-7 Date ACACIA - 7 assessed: 04/21/22 Source: Developed by Drs. Juan Vega, Tatiana Dumas, Nikolay Ling and colleagues, with an educational gia from [employer]. Physical exam (Primary Care) Vital Signs: Last Vital Signs Pulse 80 01/24/23 16:52 BP 122/62 01/24/23 16:52 Pulse Ox 98 01/24/23 16:52 Oxygen Delivery Method Room Air 01/24/23 16:52 BMI result Body Mass Index 43.3 Tobacco/Smoking Status: Tobacco use Status Tobacco use date assessed 01/24/23 01/24/23 16:58 Patient Tobacco Use Status Never used Tobacco 01/24/23 16:58 e-Cigarette/Vaping Use Never Used 01/24/23 16:58 Thrive Assessment: Date of Thrive Assessment Date Thrive assessed 04/21/22 01/24/23 16:58 Const General: alert; No acute distress Eyes Conjunctivae: conjunctivae normal Resp Auscultation: clear to auscultation bilaterally Cardio Rate: regular rate Rhythm: regular rhythm GI Inspection: Yes normal to inspection Back/Spine/Pelvis Other: Right flank pain which is tender on palpation. Extrem General: Yes normal to inspection and No edema Assessment and Plan Assessment & Plan (1) Osteoarthritis of right patellofemoral joint: Code(s): M17.11 - Unilateral primary osteoarthritis, right knee (2) Nephrolithiasis: Comment: May 2020 allopurinol vitamin B6 right ESWL November [address]22 Dr. Winslow Code(s): N20.0 - Calculus of kidney Plan: Right ESWL Dr. Winslow (3) Postsurgical hypothyroidism: Comment: S/P thyroidectomy by Dr. Dalton in 2005 Code(s): E89.0 - Postprocedural hypothyroidism Plan: Continue with thyroid medication and continue to monitor blood work (4) Benign essential hypertension: Code(s): I10 - Essential (primary) hypertension Plan: Continue with blood pressure medication. Decrease salt intake and exercise patient on amlodipine 5 mg once a day 40 mg of lisinopril once a day (5) Obesity: Code(s): E66.9 - Obesity, unspecified Plan: Diet and exercise (6) Hypercholesterolemia: Code(s): E78.00 - Pure hypercholesterolemia, unspecified Plan: Avoid fried foods, chicken skin, eggs, butter margarine, pastries and meat. Be it pork or beef they have a lot of cholesterol LDL goal of less than 130 triglyceride of less than 150 (7) History of thyroid cancer: Comment: Dr. Arash Stanton GEn Code(s): Z85.850 - Personal history of malignant neoplasm of thyroid Plan: Patient continues to follow up with endocrinology= Vit D 38 alb 4.2, tbil 0.4, ca 9.5co2, 26, cl 104, sigar 75, alk elizabeth, 75, k- 3.9, TP 7.1, NA 140, alt 34, ast 26, bun 10, crea 0.48 TgAb, < 0.4, Thyroglobulin 0.56 free t4 1.86 tsh 0.01 12/2022 (8) Hemorrhagic cyst of ovary: Comment: Right Code(s): N83.209 - Unspecified ovarian cyst, unspecified side Plan: Surgery 02/08/2023 [facility] (9) Right flank pain: Code(s): R10.9 - Unspecified abdominal pain Plan: US renal to check for renal calculi but discussed with the patient that the last US was neg 12/2022- differential is muscular pain Coding Level of Care Code Est Pt Level 4 (55356) Diagnoses Osteoarthritis of right patellofemoral joint M17.11 Nephrolithiasis N20.0 Postsurgical hypothyroidism E89.0 Benign essential hypertension I10 Obesity E66.9 Hypercholesterolemia E78.00 History of thyroid cancer Z85.850 Hemorrhagic cyst of ovary N83.209 Right flank pain R10.9
== END 2023-01-24 17:40 | disposition home or self-care (01) ==
PROVIDERS: PCP Internal Medicine; Visit Provider Internal Medicine
DX: M17.11 Unilateral primary osteoarthritis, right knee (principal); N20.0 Calculus of kidney; Z68.30 Body mass index [BMI] 30.0-30.9, adult; E66.9 Obesity, unspecified; E89.0 Postprocedural hypothyroidism; I10 Essential (primary) hypertension; E78.00 Pure hypercholesterolemia, unspecified; Z85.850 Personal history of malignant neoplasm of thyroid; N83.209 Unspecified ovarian cyst, unspecified side; R10.9 Unspecified abdominal pain
CPT/HCPCS: 99214

== ENCOUNTER 2023-01-26 08:51 | Outpatient (AMB) | payer OTHER, SELFPAY ==
[2023-01-26 09:01] VITALS: BP 126/68; PULSE 83; RESP 16; O2SAT 98; BMI 43.1
--- NOTE | 2023-01-26 09:01 | MHC.OFFVIS ---
Intake Vital Signs 01/26/23 09:01 Height 5 ft 1 in Weight 228 lb 4 oz BMI 43.1 BP 126/68 Blood Pressure Location Rt brachial Position Sitting Respiration 16 Pulse 83 Pulse Source Pulse Oximeter Pulse Oximetry (%) 98 Oxygen Delivery Method Room Air Intake Visit Reasons: s/p left Dx femoral NB /Lvm Allergies oxycodone [OXYCODONE] Allergy (Intermediate, Verified 01/26/23 09:00) RASH,SHAKES, shakiness, body shaking, tremors HPI HPI Comments History of Present Illness Details Alicia presents back to the office today for follow up 2 days s/p diagnostic left saphenous nerve block Patient reports 100% pain relief for approx 8 hours after the injection. She reports improvement in function and mobility, states I was able to walk more than I have in a long time . She would like to proceed with left saphenous nerve sprint PNS. Prior: Alicia is a very pleasant 47-year-old female who presents to the office today for evaluation and management of her left knee pain. Patient reports that she has been suffering with this pain since April 2021. Prior to this she had injured her knee at work and underwent left knee arthroscopic surgery. She states some pain improvement after surgery but there is some pain laterally that persists. She reports pain is worse with movement and area is tender to palpation. Pain today is rated as a 5/10, constant throughout the day. She has completed physical therapy for his pain that helped some, she continues with home exercise program but the pain does not improve. Currently she is using only topical gel cream for the pain. She has tried Tylenol and Motrin in the past without any improvement. In terms of muscle damage condition is described as aching and throbbing. Pain is negatively impacting patient's intermittent left, general activity, normal work, recreational activities and walking. Patient is also suffering with osteoarthritis of the right knee and new injury to the right knee. She is currently being treated by Orthopedics. She underwent cortisone injection about 4 weeks ago and is scheduled to start physical therapy for her right knee later today. [facility] Medical History (Updated 01/24/23 @ 17:41 by Tamela Pelaez MD) Right flank pain Left knee pain Remove/insert IUD Kidney stone Ovarian cyst Ureteral stone Memory deficit Acute pain Pain management Knee swelling Knee injury Asthma exacerbation Acute sinusitis Elevated LFTs Impaired fasting glucose Postsurgical hypothyroidism Benign essential hypertension COVID-19 vaccine administered Obesity Pericardial effusion Hypercholesterolemia History of thyroid cancer Vitamin D deficiency 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 Family history of von Willebrand disease Patellar fracture Closed right ankle fracture Lumbar disc herniation History of renal calculi Hypothyroid Vertigo Migraine Asthma Surgical History Hx of arthroscopy of left knee Hx of tubal ligation History of pubovaginal sling Hx of cystoscopy History of ankle surgery History of cholecystectomy History of bladder surgery History of thyroid surgery History of back surgery History of section Family History Daughter Von Willebrand disease Other Asthma Diabetes Emphysema of lung Family history of bladder cancer Family history of breast cancer Family history of lung cancer Family history of prostate cancer Social History Household Members: Family and Children Housing: House Do you presently have visiting nurse or other home services: No Alcohol intake: never Patient Tobacco Use Status: Never used Tobacco e-Cigarette/Vaping Use: Never Used Second Hand Smoke Exposure: No service: No Current occupational status: employed 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 Cognitive needs: No Hearing needs: No Vision needs: No Female Reproductive History Menstrual Age of Menarche: 14 Review of Systems Const All systems reviewed & are unremarkable except as noted in HPI and below Physical Exam Vital Signs: Last Vital Signs Pulse 83 01/26/23 09:01 Resp 16 01/26/23 09:01 BP 126/68 01/26/23 09:01 Pulse Ox 98 01/26/23 09:01 Oxygen Delivery Method Room Air 01/26/23 09:01 BMI result Body Mass Index 43.1 General: awake, alert, oriented. Answers questions appropriately. Fully engaged in examination. Skin: warm, dry, intact HEENT: Normocephalic. Hearing intact. Cardiac: External chest normal in appearance. Respiratory: No cough, audible wheezing or stridor. Abdomen: without gross distension. MS: No obvious swelling or deformities. Able to transition from sit to stand unassisted. Ambulates with bilaterally normal heel strike and toe off Neurological: Oriented to person, place, time and situation. Thought process intact. No gait abnormalities appreciated. Psychiatric: Appropriate mood and affect. Good judgment and insight. Assessment & Plan Assessment & Plan (1) S/P left knee arthroscopy: Comment: left knee arthroscopy with medial and lateral partial meniscectomy and chondroplasty 05/05/2022 [place] Code(s): Z98.890 - Other specified postprocedural states (2) Left knee pain: Code(s): M25.562 - Pain in left knee Qualifiers: Chronicity: chronic Qualified Code(s): M25.562 - Pain in left knee; G89.29 - Other chronic pain Plan Alicia presents back to the office today for follow up status post left diagnostic saphenous nerve block at adductor canal, ultrasound guided. She reports 100% pain relief with improvement in function and mobility for approx 8 hours after the diagnostic injection. Will schedule for Left Saphenous Nerve Sprint PNS, US guided with local anesthestic. Per previous note from Dr Saldivar: Ultrasound exam in the office also revealed extruded medial meniscus tissue. Given her age and work situation, I think she would benefit from intra-articular as well as intrameniscal injections of platelet rich plasma to help regenerate and heel her torn meniscus. She has not benefited from arthroscopic surgery. She is also morbidly obese and would benefit from weight loss to arrest rapid progression of potential osteoarthritis in the future. I discussed these measures with her. For now we will focus on relief of pain be a peripheral nerve stimulation but going forward I would recommended trial of PRP therapy. Will discuss further at next visit, patient is being treated after work injury. If patient would like to proceed with PRP after Sprint PNS we will submit to [facility] for coverage. Patient will follow up here after Sprint placement, sooner if needed. Coding Level of Care Code Est Pt Level 3 (92007) Diagnoses S/P left knee arthroscopy Z98.890 Chronic pain of left knee M25.562; G89.29 Chronicity: chronic
== END 2023-01-26 09:09 | disposition home or self-care (01) ==
PROVIDERS: PCP Internal Medicine; Visit Provider Registered Nurse Emergency
DX: M25.562 Pain in left knee (principal); G89.29 Other chronic pain
CPT/HCPCS: 99213

== ENCOUNTER 2023-01-26 14:36 | Outpatient (REF) | payer OTHER, SELFPAY ==
--- NOTE | ~2023-01-26 | US_ITS ---
EXAMINATION: US RETROPERITONEAL LIMITED (RENAL ONLY) CLINICAL INFORMATION: Unspecified hydronephrosis. COMPARISON: Ultrasound retroperitoneal limited 01/13/2023 and 11/19/2022. X-ray abdomen KUB 12/15/2022. CT abdomen and pelvis without contrast 08/12/2022. TECHNIQUE: Real-time imaging of the kidneys. FINDINGS: RIGHT KIDNEY: 13.4 x 5.8 x 8.2 cm (SAG x AP x TRV). The kidney is normal in size, contour, and echogenicity. Renal cortical thickness is normal. No calculi or focal parenchymal lesions. No hydronephrosis. LEFT KIDNEY: 13.6 x 6.7 x 6.0 cm (SAG x AP x TRV). The kidney is normal in size, contour, and echogenicity. Renal cortical thickness is normal. No calculi or focal parenchymal lesions. No hydronephrosis. US/US renal BI IMPRESSION: No nephrolithiasis or hydronephrosis.
== END 2023-01-26 14:37 | disposition home or self-care (01) ==
LOC: HO.HMGCX 14:36
PROVIDERS: PCP Internal Medicine; Visit Provider Urology
DX: N13.30 Unspecified hydronephrosis (principal); N20.0 Calculus of kidney; M25.562 Pain in left knee; G89.29 Other chronic pain; Z98.890 Other specified postprocedural states
CPT/HCPCS: 76775; 99212

== ENCOUNTER 2023-01-28 11:51 | Outpatient (AMB) | payer OTHER, SELFPAY ==
--- NOTE | 2023-01-28 11:52 | MHC.OFFVIS ---
Intake Intake Visit Reasons: 6 week post op ESWL/US Intake Note: Patient is Present for Telephone Follow Up Urology Med: Vitamin B6, Antibiotic Allergy: None Blood Thinner: None Pharamcy: [facility] Allergies oxycodone [OXYCODONE] Allergy (Intermediate, Verified 03/17/23 10:37) RASH,SHAKES, shakiness, body shaking, tremors HPI HPI Comments History of Present Illness Details Alicia Jenkins is a very pleasant female. They are a patient of Dr Pelaez. She is seen for the following urologic conditions - nephrolithiasis Telemedicine Evaluation 15 min Consultation [employer] Elena Video attempted Completed ESWL Ultrasound shows no stones Continue with high output urinary B6 6 month follow-up Nephrolithiasis/Urolithiasis:? Urolithiasis was diagnosed 2015 ? Seen in [facility] 05/08/16, 04/13/20 ? The patient previously had kidney stones whose composition w unknown. ? Laboratory investigations include no recent labs. ? 24 Hour urine evaluation 07/12 , High oxalate > 30mg, Good Volume > 2.00 L, Low calcium <200, High Citrate. ? Prior treatment(s) include 06/11 , right, ureteroscopy - no stone, 06/15 left ureteroscopy laser lithotripsy - 12/18 R ESWL ? Prior imaging includes a - CT (computed tomography) scan of the abdomen/pelvis (stone protocol) 05/14 - multiple small stones seen in the right kidney. Images reviewed personally - 07/12 , a renal ultrasound, showing no evidence of stones - 04/17 CT scan left UVJ stone with mild hydroureteronephrosis - 08/17 CT scan 5 mm right, 2 mm left - 11/17 renal ultrasound right 6 mm stone, no stone left, 02/17 renal US no stones ? Current therapeutic plan - Known family history of von Willebrand's disease. Will need single dose tranexamic acid coverage in preop. [facility] Medical History (Updated 01/24/23 @ 17:41 by Tamela Pelaez MD) Remove/insert IUD Kidney stone Ovarian cyst Ureteral stone Right flank pain Left knee pain Memory deficit Acute pain Pain management Knee swelling Knee injury Asthma exacerbation Acute sinusitis Elevated LFTs Impaired fasting glucose Postsurgical hypothyroidism Benign essential hypertension COVID-19 vaccine administered Obesity Pericardial effusion Hypercholesterolemia History of thyroid cancer Vitamin D deficiency 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 Family history of von Willebrand disease Patellar fracture Closed right ankle fracture Lumbar disc herniation History of renal calculi Hypothyroid Vertigo Migraine Asthma Surgical History (Updated 03/09/23 @ 07:23 by Analisa Mondragon) S/P removal of left ovary Hx of arthroscopy of left knee Hx of tubal ligation History of pubovaginal sling Hx of cystoscopy History of ankle surgery History of cholecystectomy History of bladder surgery History of thyroid surgery History of back surgery History of section Family History Daughter Von Willebrand disease Other Asthma Diabetes Emphysema of lung Family history of bladder cancer Family history of breast cancer Family history of lung cancer Family history of prostate cancer Social History Household Members: Family and Children Housing: House Do you presently have visiting nurse or other home services: No Alcohol intake: never Comment: medicated, see MAR Patient Tobacco Use Status: Never used Tobacco e-Cigarette/Vaping Use: Never Used Second Hand Smoke Exposure: No service: No Current occupational status: employed 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 Cognitive needs: No Hearing needs: No Vision needs: No Female Reproductive History Menstrual Age of Menarche: 14 Review of Systems Const All systems reviewed & are unremarkable except as noted in HPI and below Reports no additional complaints Resp Reports no additional complaints GI Reports no additional complaints Reports as per HPI Musc Reports no additional complaints Physical Exam Telemedicine evaluation Appropriate responses Regular breathing rate and rhythm HEENT Head: Yes normal to inspection Ears: hearing grossly normal bilaterally Eyes General: appearance normal, both eyes and all related structures Neck Neck: Yes normal visual inspection Chest Chest palpation & inspection: normal inspection of the chest Resp Effort & Inspection: normal respiratory effort and able to speak in complete sentences Assessment & Plan Assessment & Plan (1) Nephrolithiasis: Comment: May 2020 allopurinol vitamin B6 right ESWL November [address]22 Dr. Winslow Code(s): N20.0 - Calculus of kidney Plan Six months imaging Orders: Orders US renal BI 6 Months N20.0 - Calculus of kidney Patient Instructions: Imaging studies, laboratory and physical exam results were discussed and reviewed in detail. No major barriers to patient understanding were identified. An opportunity to ask questions regarding the treatment plan was provided. All questions were answered. The patient expressed understanding and agreement with the above treatment plan. The patient is aware they should contact our office by phone for worsening of their current condition or the appearance of new urologic symptoms. Compliance is encouraged with any medications and followup testing that is ordered. It is a privilege to participate in the urologic care of your patient. If you have any questions or concerns regarding treatment for the above conditions, or other urologic issues, please do not hesitate to contact me. The office telephone contact is [phone]. This note is constructed using voice recognition software. While every effort has been made to ensure accuracy warp picker errors may have been included. Yours sincerely, Dr Marcio Winslow MD, [facility] - Urology Providers of Expert, Compassionate Care for the Genitourinary System Telehealth Telehealth Location of provider rendering services: practice address Location of patient: address on file Patient Identification confirmed using: Name, : Yes Telehealth method: video Patient verbally consented to treatment: Yes Patient verbally consented to billing insurance company: Yes Patient informed of any privacy concerns related to visit: Yes Coding Level of Care Code Tele Est Pt Level 3 (19467) Diagnoses Nephrolithiasis N20.0
== END 2023-01-28 12:13 | disposition home or self-care (01) ==
LOC: HO.HUSH 11:51
PROVIDERS: PCP Internal Medicine; Visit Provider Urology
DX: N20.0 Calculus of kidney (principal)
CPT/HCPCS: 99024

== ENCOUNTER → 2023-01-28 11:51 | Outpatient (BNVA) | payer OTHER, SELFPAY | PROVIDERS: PCP Internal Medicine; Visit Provider Urology ==

== ENCOUNTER 2023-03-09 07:14 | Day surgery (SDC) | payer OTHER, SELFPAY ==
[2023-03-09 07:25] VITALS: BP 140/88; PULSE 81; RESP 16; TEMP 36.8; O2SAT 97; BMI 42.1
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
--- NOTE | 2023-03-09 08:57 | P.BOP_ITS ---
Brief Operative Note Date of Service: 03/09/23 Pre-op diagnosis: Chronic left knee pain Post-op diagnosis: same Procedure: Temporary left saphenous nerve stimulator placement Implants: Sprint temporary PNS system Surgeon: Tobi Saldivar MD Anesthesia: local Was an Solar Field Installation Crew Member used for this Procedure?: No Estimated blood loss (mL): 2 Pathology: none sent Condition: stable Disposition: same day
--- NOTE | 2023-03-09 08:57 | P.OP_ITS ---
Operative Note Operative Note Date of Service: 03/09/23 Narrative: Peripheral Nerve Stimulation Temporary Lead Placement, Ultrasound-Guided, Saphenous Nerve, Left ? After the risks, benefits and alternatives were discussed with the patient and informed consentwas obtained, patient was placed in the supine position and padded to foster comfort. Appropriate skin and bony landmarks were identified, and pertinent vascular structures were located. The skin overlying the needle entry site was prepped and draped in sterile fashion. Ultrasound was used to identify the femoral artery, the femoral vein and the saphenous nerve. After identifying and marking the intended target along the course of the saphenous nerve, the skin around the planned entry point and the subcutaneous tissues were injected with local anesthetic. An introducer needle and stimulating probe were assembled, inserted and advanced along the intended course of the saphenous; nerve, taking care to maintain the proper depth of insertion as the introducer was advanced under ultrasound guidance. The introducer needle was delivered to a location in proximity to the nerve taking care not to puncture the femoral artery or the vein. Multiple stimulation parameters were used to deliver stimulation to the saphenous nerve in concert with stimulating at multiple positions around the nerve. Nerve target acquisition was confirmed noting generation of sensory and mild motor effects (paresthesia, muscle tension, etc) in the medial knee, leg and ankle; corresponding to the distribution of the saphenous nerve. Various electrical parameter combinations were tested, and the lead location was adjusted (physica lly relocated under ultrasound guidance) until the patient indicated medial knee paresthesia and tension overlapping the distribution of the patient?s typical region of pain. The stimulating probe was removed from the introducer and a percutaneous lead was guided through the needle and delivered to a location in similar proximity to the nerve. Final location was verified with electrical stimulation and documented. The introducer needle was removed, and the exposed end of the percutaneous lead was attached to an external stimulator unit. Various electrical parameter combinations were again tested until the patient indicated paresthesia and muscle tension overlapping the distribution of the patient?s typical region of pain. After confirming that lead impedance was in the normal range, the external unit was detached, the needle was removed, and the lead was anchored at the skin. The lead was threaded into the connector block and electrical continuity and desired patient response was confirmed. The connector block was attached to the external stimulator unit. The site was covered with a sterile occlusive dressing. A final ultrasound image was taken to document final placement. The patient was observed for stability of vital signs and comfort.
[2023-03-09 08:58] VITALS: BP 132/79; PULSE 80; RESP 17; TEMP 37.1; O2SAT 96
== END 2023-03-09 09:26 | disposition home or self-care (01) ==
PROVIDERS: PCP Internal Medicine; Visit Provider Internal Medicine
PROC: (CPT 64555; principal; 2023-03-09 09:00)
DX: M25.562 Pain in left knee (principal); G89.29 Other chronic pain; M17.11 Unilateral primary osteoarthritis, right knee; Z87.828 Personal history of other (healed) physical injury and trauma; R26.2 Difficulty in walking, not elsewhere classified; Z98.890 Other specified postprocedural states; I10 Essential (primary) hypertension; R73.01 Impaired fasting glucose; J45.909 Unspecified asthma, uncomplicated; R41.3 Other amnesia; Z85.850 Personal history of malignant neoplasm of thyroid; E66.9 Obesity, unspecified; Z68.41 Body mass index [BMI] 40.0-44.9, adult; Z88.5 Allergy status to narcotic agent
CPT/HCPCS: 64555; C1778

== ENCOUNTER → 2023-03-09 07:14 | Outpatient (BNV) | payer OTHER, SELFPAY | PROVIDERS: PCP Internal Medicine; Visit Provider Internal Medicine | DX: M25.562 Pain in left knee (principal) | CPT/HCPCS: 64555 ==

== ENCOUNTER 2023-03-17 10:20 | Outpatient (AMB) | payer OTHER, SELFPAY ==
--- NOTE | 2023-03-17 10:36 | MHC.OFFVIS ---
Intake Vital Signs 03/17/23 10:37 Height 5 ft 1 in Weight 222 lb BMI 41.9 BP 133/69 Blood Pressure Location Lt brachial Position Sitting Respiration 18 Pulse 90 Pulse Source Pulse Oximeter Pulse Oximetry (%) 99 Oxygen Delivery Method Room Air Intake Visit Reasons: s/p Left femoral Sprint/confirmed Allergies oxycodone [OXYCODONE] Allergy (Intermediate, Verified 03/17/23 10:37) RASH,SHAKES, shakiness, body shaking, tremors HPI HPI Comments History of Present Illness Details Alicia presents to the office today for follow up 1 week s/p left saphenous nerve Sprint PNS placement. Patient tolerated procedure well. Has changed dressing at home without difficulty. Pain today rated as 3/10 at insertion site. She has been in contact with Sprint Rep, titrating stimulation and tolerating well. She reports improvement in pain, function and mobility of the left knee. Prior: Alicia presents back to the office today for follow up 2 days s/p diagnostic left saphenous nerve block Patient reports 100% pain relief for approx 8 hours after the injection. She reports improvement in function and mobility, states I was able to walk more than I have in a long time . She would like to proceed with left saphenous nerve sprint PNS. Prior: Alicia is a very pleasant 47-year-old female who presents to the office today for evaluation and management of her left knee pain. Patient reports that she has been suffering with this pain since April 2021. Prior to this she had injured her knee at work and underwent left knee arthroscopic surgery. She states some pain improvement after surgery but there is some pain laterally that persists. She reports pain is worse with movement and area is tender to palpation. Pain today is rated as a 5/10, constant throughout the day. She has completed physical therapy for his pain that helped some, she continues with home exercise program but the pain does not improve. Currently she is using only topical gel cream for the pain. She has tried Tylenol and Motrin in the past without any improvement. In terms of muscle damage condition is described as aching and throbbing. Pain is negatively impacting patient's intermittent left, general activity, normal work, recreational activities and walking. Patient is also suffering with osteoarthritis of the right knee and new injury to the right knee. She is currently being treated by Orthopedics. She underwent cortisone injection about 4 weeks ago and is scheduled to start physical therapy for her right knee later today. [facility] Medical History (Updated 01/24/23 @ 17:41 by Tamela Pelaez MD) Remove/insert IUD Kidney stone Ovarian cyst Ureteral stone Right flank pain Left knee pain Memory deficit Acute pain Pain management Knee swelling Knee injury Asthma exacerbation Acute sinusitis Elevated LFTs Impaired fasting glucose Postsurgical hypothyroidism Benign essential hypertension COVID-19 vaccine administered Obesity Pericardial effusion Hypercholesterolemia History of thyroid cancer Vitamin D deficiency 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 Family history of von Willebrand disease Patellar fracture Closed right ankle fracture Lumbar disc herniation History of renal calculi Hypothyroid Vertigo Migraine Asthma Surgical History (Updated 03/09/23 @ 07:23 by Analisa Mondragon) S/P removal of left ovary Hx of arthroscopy of left knee Hx of tubal ligation History of pubovaginal sling Hx of cystoscopy History of ankle surgery History of cholecystectomy History of bladder surgery History of thyroid surgery History of back surgery History of section Family History Daughter Von Willebrand disease Other Asthma Diabetes Emphysema of lung Family history of bladder cancer Family history of breast cancer Family history of lung cancer Family history of prostate cancer Social History Household Members: Family and Children Housing: House Do you presently have visiting nurse or other home services: No Alcohol intake: never Comment: medicated, see MAR Patient Tobacco Use Status: Never used Tobacco e-Cigarette/Vaping Use: Never Used Second Hand Smoke Exposure: No service: No Current occupational status: employed 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 Cognitive needs: No Hearing needs: No Vision needs: No Female Reproductive History Menstrual Age of Menarche: 14 Review of Systems Const All systems reviewed & are unremarkable except as noted in HPI and below Physical Exam Vital Signs: Last Vital Signs Pulse 90 03/17/23 10:37 Resp 18 03/17/23 10:37 BP 133/69 03/17/23 10:37 Pulse Ox 99 03/17/23 10:37 Oxygen Delivery Method Room Air 03/17/23 10:37 BMI result Body Mass Index 41.9 General: awake, alert, oriented. Answers questions appropriately. Fully engaged in examination. Skin: warm, dry, intact HEENT: Normocephalic. Hearing intact. Cardiac: External chest normal in appearance. Respiratory: No cough, audible wheezing or stridor. Abdomen: without gross distension. MS: No obvious swelling or deformities. Able to transition from sit to stand unassisted. Ambulates with bilaterally normal heel strike and toe off Neurological: Oriented to person, place, time and situation. Thought process intact. No gait abnormalities appreciated. Psychiatric: Appropriate mood and affect. Good judgment and insight. Sprint dressing change: Existing dressing removed, Area cleansed with chloraprep. Site dry, clean without redness, swelling, warmth, bruising or drainage. Lead secure device removed. Area cleansed again with chloraprep, once dry skin barrier protectant wipe applied. New lead secure device applied, tegaderm applied. Patient tolerated procedure well. Assessment & Plan Assessment & Plan (1) S/P left knee arthroscopy: Comment: left knee arthroscopy with medial and lateral partial meniscectomy and chondroplasty 05/05/2022 [place] Code(s): Z98.890 - Other specified postprocedural states (2) Left knee pain: Code(s): M25.562 - Pain in left knee Qualifiers: Chronicity: chronic Qualified Code(s): M25.562 - Pain in left knee; G89.29 - Other chronic pain Plan Alicia presents back to the office today for follow up status post left diagnostic saphenous nerve Sprint PNS placement 03/09/2023. Patient tolerating well, managing device at home without difficulty. changing dressing as needed She has been in contact with Sprint Rep. Patient reports improvement in pain, function and mobility with only some reported pain at insertion site. Site dry,clean, intact without pathalogical drainage. No concerns for infection at this time. Patient will monitor closely and call for any concerns. Patient will follow up here for Sprint removal, sooner if needed. Per previous note from Dr Saldivar: Ultrasound exam in the office also revealed extruded medial meniscus tissue. Given her age and work situation, I think she would benefit from intra-articular as well as intrameniscal injections of platelet rich plasma to help regenerate and heel her torn meniscus. She has not benefited from arthroscopic surgery. She is also morbidly obese and would benefit from weight loss to arrest rapid progression of potential osteoarthritis in the future. I discussed these measures with her. For now we will focus on relief of pain be a peripheral nerve stimulation but going forward I would recommended trial of PRP therapy. Coding Level of Care Code Est Pt Level 3 (35125) Diagnoses S/P left knee arthroscopy Z98.890 Chronic pain of left knee M25.562; G89.29 Chronicity: chronic
[2023-03-17 10:37] VITALS: BP 133/69; PULSE 90; RESP 18; O2SAT 99; BMI 41.9
== END 2023-03-17 10:31 | disposition home or self-care (01) ==
PROVIDERS: PCP Internal Medicine; Visit Provider Registered Nurse Emergency
DX: Z98.890 Other specified postprocedural states (principal); M25.562 Pain in left knee; G89.29 Other chronic pain
CPT/HCPCS: 99024

== ENCOUNTER → 2023-03-17 10:20 | Outpatient (BNVA) | payer OTHER, SELFPAY | PROVIDERS: PCP Internal Medicine; Visit Provider Registered Nurse Emergency | DX: G89.29 Other chronic pain (principal); M25.562 Pain in left knee; Z98.890 Other specified postprocedural states | CPT/HCPCS: 99212 ==

== ENCOUNTER 2023-03-31 15:02 | Outpatient (AMB) | payer OTHER, SELFPAY ==
[2023-03-31 15:18] VITALS: BP 132/90; PULSE 83; O2SAT 98; BMI 43.6
--- NOTE | 2023-03-31 15:18 | MHC.PC.OV ---
Vital Signs 03/31/23 15:18 Height 5 ft 1 in Weight 231 lb 0.2 oz BMI 43.6 BP 132/90 H Blood Pressure Location Lt brachial Position Sitting Pulse 83 Pulse Source Pulse Oximeter Pulse Oximetry (%) 98 Oxygen Delivery Method Room Air Intake Visit Reasons: Nausea, Lack Of appetite, Fatigue Shopping Centre Manager Required: No Allergies oxycodone [OXYCODONE] Allergy (Intermediate, Verified 03/31/23 15:18) RASH,SHAKES, shakiness, body shaking, tremors Tobacco use date assessed: 03/31/23 HPI Nausea, Lack Of appetite, Fatigue HPI Details 48-year-old morbidly obese female with a history of thyroid cancer now postsurgical hypothyroid nephrolithiasis hypertension hypercholesterolemia coming in for follow-up. Last seen in December 2022. Review of the notes has been seeing pain management has a history of left saphenous nerve PNS placement for the left knee pain has had arthroscopic surgery but persistent the pain patient also has followed up with urology had ESWL extracorporeally sound wave lithotripsy ultrasound showing no stones will continue to follow-up with ultrasound. L knee pain still there and frustrated due to pain still there. diarrhea , low apetitte, nausea in am 1 week - . Patient has been having migraines also and was asking for Fioricet but discussed my concerns about Fioricet will do Relpax for migraines. 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 Family history of von Willebrand disease Patellar fracture Closed right ankle fracture Lumbar disc herniation History of renal calculi Hypothyroid Vertigo Migraine Asthma Surgical History (Updated 03/09/23 @ 07:23 by Analisa Mondragon) S/P removal of left ovary Hx of arthroscopy of left knee Hx of tubal ligation History of pubovaginal sling Hx of cystoscopy History of ankle surgery History of cholecystectomy History of bladder surgery History of thyroid surgery History of back surgery History of section Family History Daughter Von Willebrand disease Other Asthma Diabetes Emphysema of lung Family history of bladder cancer Family history of breast cancer Family history of lung cancer Family history of prostate cancer Social History Household Members: Family and Children Housing: House Do you presently have visiting nurse or other home services: No Alcohol intake: never Comment: medicated, see MAR Patient Tobacco Use Status: Never used Tobacco e-Cigarette/Vaping Use: Never Used Second Hand Smoke Exposure: No service: No Current occupational status: employed 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 Cognitive needs: No Hearing needs: No Vision needs: No Female Reproductive History Menstrual Age of Menarche: 14 Questionnaire Thrive Questionnaire Date Thrive assessed: 04/21/22 AUDIT C Alcohol Use Questionnaire (AUDIT-C) 1. How often do you have a drink containing alcohol?: Monthly or less 2. How many drinks containing alcohol do you have on a typical day when you are drinking?: 1 or 2 3. How often do you have six or more drinks on one occasion?: Never Total Score: 1 ACACIA-7 AMB Questionnaire ACACIA-7 Date ACACIA - 7 assessed: 04/21/22 Source: Developed by Drs. Juan Vega, Tatiana Dumas, Nikolay Ling and colleagues, with an educational gia from [employer]. Physical exam (Primary Care) Vital Signs: Last Vital Signs Pulse 83 03/31/23 15:18 BP 132/90 H 03/31/23 15:18 Pulse Ox 98 03/31/23 15:18 Oxygen Delivery Method Room Air 03/31/23 15:18 BMI result Body Mass Index 43.6 Tobacco/Smoking Status: Tobacco use Status Tobacco use date assessed 03/31/23 03/31/23 15:23 Patient Tobacco Use Status Never used Tobacco 03/31/23 15:23 e-Cigarette/Vaping Use Never Used 03/31/23 15:23 Thrive Assessment: Date of Thrive Assessment Date Thrive assessed 04/21/22 03/31/23 15:23 Const General: alert; No acute distress Eyes Conjunctivae: conjunctivae normal Resp Auscultation: clear to auscultation bilaterally Cardio Rate: regular rate Rhythm: regular rhythm GI Inspection: Yes normal to inspection Extrem General: Yes normal to inspection and No edema Assessment and Plan Assessment & Plan (1) S/P left knee arthroscopy: Comment: left knee arthroscopy with medial and lateral partial meniscectomy and chondroplasty 05/05/2022 [place] Code(s): Z98.890 - Other specified postprocedural states Plan: Patient follows up with pain management and has had PNS placement. Patient will meet with pain management again but so far pain has been persistent (2) Postsurgical hypothyroidism: Comment: S/P thyroidectomy by Dr. Dalton in 2005 Code(s): E89.0 - Postprocedural hypothyroidism Plan: Continue with thyroid medication and follows up with endocrinology, requested TSH testing (3) Obesity: Code(s): E66.9 - Obesity, unspecified Plan: Diet and exercise, will refer to weight management (4) Gastroenteritis: Code(s): K52.9 - Noninfective gastroenteritis and colitis, unspecified Plan: Keep well hydrated, bland diet probiotics prescribed blood work as well as stool test requested (5) Migraine: Code(s): G43.909 - Migraine, unspecified, not intractable, without status migrainosus Qualifiers: Migraine type: without aura Status migrainosus presence: with status migrainosus Intractability: not intractable Qualified Code(s): G43.001 - Migraine without aura, not intractable, with status migrainosus Plan: Will try Relpax. Discussed my concerns regarding Fioricet. Patient is advised to talk to me if the migraine is getting worse Orders: Orders Complete Blood Count Auto Diff Today K52.9 - Noninfective gastroenteritis and colitis, unspecified Magnesium Today K52.9 - Noninfective gastroenteritis and colitis, unspecified Comprehensive Met. Panel Today K52.9 - Noninfective gastroenteritis and colitis, unspecified Free T4 (Free Thyroxine) Today K52.9 - Noninfective gastroenteritis and colitis, unspecified Thyroid Stimulating Hormone Today K52.9 - Noninfective gastroenteritis and colitis, unspecified Leukocytes Stool Qualitative Today K52.9 - Noninfective gastroenteritis and colitis, unspecified Referrals Medical Weight Management Referral E66.9 - Obesity, unspecified Medications: New Lactobacillus rhamnosus GG (Culturelle) 1 cap PO DAILY 20 caps 0RF K52.9 - Noninfective gastroenteritis and colitis, unspecified eletriptan (Relpax) 20 mg PO .QD PRN 10 tabs 3RF migraine headache G43.001 - Migraine without aura, not intractable, with status migrainosus Discontinued sumatriptan succinate Discontinued Reason: Ancillary Entered New Order 100 mg PO DAILY PRN 10 tabs 2RF for migraine G43.909 - Migraine, unspecified, not intractable, without status migrainosus Coding Level of Care Code Est Pt Level 4 (91650) Diagnoses S/P left knee arthroscopy Z98.890 Postsurgical hypothyroidism E89.0 Obesity E66.9 Gastroenteritis K52.9 Migraine without aura and with status migrainosus, not intractable G43.001 Migraine type: without aura Status migrainosus presence: with status migrainosus Intractability: not intractable
== END 2023-03-31 16:52 | disposition home or self-care (01) ==
PROVIDERS: PCP Internal Medicine; Visit Provider Internal Medicine
DX: E89.0 Postprocedural hypothyroidism (principal); E66.9 Obesity, unspecified; Z68.41 Body mass index [BMI] 40.0-44.9, adult; K52.9 Noninfective gastroenteritis and colitis, unspecified; Z98.890 Other specified postprocedural states; G43.001 Migraine without aura, not intractable, with status migrainosus
CPT/HCPCS: 99214

== ENCOUNTER 2023-04-01 08:51 | Outpatient (REF) | payer OTHER, SELFPAY ==
[2023-04-01 09:13] LABS: MANUAL DIFF FLAG NO
[2023-04-01 09:34] LABS: Basophils Absolute Auto 0.1 X10*3/uL (0.0-0.2); Basophils Percent Auto 0.7 % (0-2); Eosinophils Absolute Auto 0.1 X10*3/uL (0.0-0.4); Eosinophils Percent Auto 1.3 % (0-4); Hematocrit 38.5 % (37.0-47.0); Imm Gran Abs Auto 0.05 X10*3/uL (0.00-0.03); Imm Gran Pct Auto 0.6 % (0.0-0.4); Lymphocytes Absolute Auto 2.2 X10*3/uL (1.2-4.9); Lymphocytes Percent Auto 25.5 % (20-40); Mean Corpuscular HGB Conc 33.8 g/dl (31.0-35.0); Mean Corpuscular Hemoglobin 30.4 pg (27.0-33.0); Mean Platelet Volume 9.7 fL (9.4-12.3); Monocytes Absolute Auto 0.5 X10*3/uL (0.1-1.2); Monocytes Percent Auto 6.4 % (2-11); Neutrophils Absolute Auto 5.5 x10*3/uL (2.0-8.3); Neutrophils Percent Auto 65.5 % (45-73); Platelet Count 347 X10*3/uL (160-400); Red Blood Count 4.28 X10*6/uL (4.20-5.50); Red Cell Distribution Width 12.9 % (11.0-16.0); White Blood Count 8.5 X10*3/uL (4.8-10.8)
== END 2023-04-01 08:52 | disposition home or self-care (01) ==
LOC: HO.LAB 08:51
PROVIDERS: PCP Internal Medicine; Visit Provider Internal Medicine
DX: K52.9 Noninfective gastroenteritis and colitis, unspecified (principal)
CPT/HCPCS: 36415; 80053; 83735; 84439; 84443; 85025

== ENCOUNTER 2023-04-04 11:30 | Outpatient (REF) | payer OTHER, SELFPAY | END 2023-04-04 11:31 | disposition home or self-care (01) | LOC: HO.LNP 11:30 | PROVIDERS: Visit Provider Internal Medicine | DX: K52.9 Noninfective gastroenteritis and colitis, unspecified (principal) | CPT/HCPCS: 89055 ==

== ENCOUNTER 2023-04-19 09:26 | Outpatient (AMB) | payer OTHER, SELFPAY ==
--- NOTE | 2023-04-19 09:38 | MHC.OFFVIS ---
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 No complaints. Last Pap/HPV was negative in 04/19 Last Mammogram was BI-RADS 1 in 05/20, next screening mammogram is scheduled within few weeks No previous screening colonoscopy PFSH Medical History (Updated 04/19/23 @ 09:54 by Shashi Crabtree MD) Remove/insert IUD Kidney stone Ovarian cyst Ureteral stone Right flank pain Left knee pain Memory deficit Acute pain Pain management Knee swelling Knee injury Asthma exacerbation Acute sinusitis Elevated LFTs Impaired fasting glucose Postsurgical hypothyroidism Benign essential hypertension COVID-19 vaccine administered Obesity Pericardial effusion Hypercholesterolemia History of thyroid cancer Vitamin D deficiency 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 Family history of von Willebrand disease Patellar fracture Closed right ankle fracture Lumbar disc herniation History of renal calculi Hypothyroid Vertigo Migraine Asthma Surgical History (Updated 04/19/23 @ 09:57 by Shashi rCabtree MD) S/P removal of left ovary Hx of arthroscopy of left knee Hx of tubal ligation History of pubovaginal sling Hx of cystoscopy History of ankle surgery History of cholecystectomy History of bladder surgery History of thyroid surgery History of back surgery History of section Family History Daughter Von Willebrand disease Other Asthma Diabetes Emphysema of lung Family history of bladder cancer Family history of breast cancer Family history of lung cancer Family history of prostate cancer Social History Household Members: Family and Children Housing: House Do you presently have visiting nurse or other home services: No Alcohol intake: never Comment: medicated, see MAR Patient Tobacco Use Status: Never used Tobacco e-Cigarette/Vaping Use: Never Used Second Hand Smoke Exposure: No service: No Current occupational status: employed 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 Cognitive needs: No Hearing needs: No Vision needs: No Female Reproductive History Menstrual Age of Menarche: 14 control method: progestin IUCD Total pregnancies: 4 Full term: 3 Number of Living Children: 3 Ab spontaneous: 1 Date of last pap smear: 04/14/22 (negative) History of abnormal pap smear: Yes (2001 FRANK 1) Review of Systems Const All systems reviewed & are unremarkable except as noted in HPI and below Card Reports as per HPI Resp Reports as per HPI GI Reports as per HPI and Reports no additional complaints Reports as per HPI Physical Exam Vital Signs: BMI result Body Mass Index 42.9 Const General: cooperative, healthy appearing and comfortable Chest Chest palpation & inspection: normal inspection of the chest and normal palpation of entire chest wall Breast/axilla inspection: normal inspection of the breasts and normal inspection of the axillae Breast/axilla palpation: normal palpation of the breasts, normal palpation of the axillae and no axillary lymphadenopathy Resp Effort & Inspection: normal respiratory effort Auscultation: clear to auscultation bilaterally Percussion: percussion normal Cardio Palpation: normal PMI Rate: regular rate Rhythm: regular rhythm Heart sounds: no murmurs and no rubs Peripheral pulses: Peripheral pulses 2+ throughout GI Inspection: Yes normal to inspection Palpation (GI): Soft to palpation, nontender, no guarding, not rigid and No hepatosplenomegaly present Percussion: Yes normal to percussion Auscultation: normal bowel sounds Rectal Exam - Female: deferred General: Yes bladder normal to palpation External Female Exam: No lesion Speculum Exam - Vagina: normal appearance of the vagina, normal palpation, normal vaginal discharge and not erythematous Speculum Exam - Cervix: normal appearance of the cervix and normal palpation Bimanual exam- vagina & uterus: normal bimanual exam, normal palpation, uterine size normal, bladder normal to palpation, consistency normal and normal palpation Bimanual Exam- Adnexa, other: normal adnexae (Right adnexa within normal, left adnexa surgically absent), no masses and no tenderness Assessment & Plan Assessment & Plan (1) Well woman exam: Code(s): Z01.419 - Encounter for gynecological examination (general) (routine) without abnormal findings Plan: Cotesting not indicated this year. Mammogram is scheduled. Counseled the patient about the recommended dietary allowance of 1000 mg of Calcium & 600 IU of vitamin D. Refer to GI for screening colonoscopy The patient was instructed to perform monthly self-breast exams and to schedule an annual exam in a year; All questions answered and the patient verbalized understanding. Instructed the patient to schedule annual exam in a year Orders: Referrals Gastroenterology Referral Z12.11 - Encounter for screening for malignant neoplasm of colon Coding Level of Care Code Est Pt Prev Care 40-64y(08244) Diagnoses Well woman exam Z01.419
[2023-04-19 09:39] VITALS: BMI 42.9
== END 2023-04-19 10:08 | disposition home or self-care (01) ==
LOC: HO.HWS 09:26
PROVIDERS: PCP Internal Medicine; Visit Provider Obstetrics & Gynecology
DX: Z01.419 Encounter for gynecological examination (general) (routine) without abnormal findings (principal)
CPT/HCPCS: 99396

== ENCOUNTER → 2023-04-19 09:26 | Outpatient (BNVA) | payer OTHER, SELFPAY | PROVIDERS: PCP Internal Medicine; Visit Provider Obstetrics & Gynecology | DX: Z01.419 Encounter for gynecological examination (general) (routine) without abnormal findings (principal) | CPT/HCPCS: 99396 ==

== ENCOUNTER 2023-05-04 08:58 | Outpatient (REF) | payer OTHER, SELFPAY ==
[2023-05-04 11:20] LABS: Free T4 (Free Thyroxine) 1.24 ng/dL (0.71-1.85); Thyroid Stimulating Hormone 0.01 uIU/mL (0.32-4.0)
== END 2023-05-04 08:59 | disposition home or self-care (01) ==
LOC: HO.LAB 08:58
PROVIDERS: Absent Provider Internal Medicine; PCP Internal Medicine; Visit Provider Registered Nurse Emergency
DX: M17.11 Unilateral primary osteoarthritis, right knee (principal); M23.307 Other meniscus derangements, unspecified meniscus, left knee; M25.562 Pain in left knee; G89.29 Other chronic pain; Z85.850 Personal history of malignant neoplasm of thyroid; Z98.890 Other specified postprocedural states
CPT/HCPCS: 36415; 84439; 84443; 99212

== ENCOUNTER 2023-05-04 08:58 | Outpatient (AMB) | payer OTHER, SELFPAY ==
[2023-05-04 09:11] VITALS: BP 146/90; PULSE 86; RESP 18; O2SAT 98; BMI 42.5
--- NOTE | 2023-05-04 09:11 | A.OFFVIS_ITS ---
Intake Vital Signs 05/04/23 09:11 Height 5 ft 1 in Weight 225 lb 2 oz BMI 42.5 BP 146/90 H Blood Pressure Location Lt radial Position Sitting Respiration 18 Pulse 86 Pulse Source Pulse Oximeter Pulse Oximetry (%) 98 Oxygen Delivery Method Room Air Intake Visit Reasons: Sprint removal - Confirmed Allergies oxycodone [OXYCODONE] Allergy (Intermediate, Verified 05/04/23 09:12) RASH,SHAKES, shakiness, body shaking, tremors HPI HPI Comments History of Present Illness Details Patient presents back to the office today for follow-up, removal of left saphenous nerve sprint PNS. Patient reports that pain today is 7/10. She has been in contact closely with the sprint wrap and adjusting stimulation as instructed. She does not feel that she got much relief from the sprint device. Continues with pain to the medial knee with standing and twisting. Patient is frustrated and was hoping to be back to work much quicker than this. Prior: Alicia presents to the office today for follow up 1 week s/p left saphenous nerve Sprint PNS placement. Patient tolerated procedure well. Has changed dressing at home without difficulty. Pain today rated as 3/10 at insertion site. She has been in contact with Sprint Rep, titrating stimulation and tolerating well. She reports improvement in pain, function and mobility of the left knee. Prior: Alicia presents back to the office today for follow up 2 days s/p diagnostic left saphenous nerve block Patient reports 100% pain relief for approx 8 hours after the injection. She reports improvement in function and mobility, states I was able to walk more than I have in a long time . She would like to proceed with left saphenous nerve sprint PNS. Prior: Alicia is a very pleasant 47-year-old female who presents to the office today for evaluation and management of her left knee pain. Patient reports that she has been suffering with this pain since April 2021. Prior to this she had injured her knee at work and underwent left knee arthroscopic surgery. She states some pain improvement after surgery but there is some pain laterally that persists. She reports pain is worse with movement and area is tender to palpation. Pain today is rated as a 5/10, constant throughout the day. She has completed physical therapy for his pain that helped some, she continues with home exercise program but the pain does not improve. Currently she is using only topical gel cream for the pain. She has tried Tylenol and Motrin in the past without any improvement. In terms of muscle damage condition is described as aching and throbbing. Pain is negatively impacting patient's intermittent left, general activity, normal work, recreational activities and walking. Patient is also suffering with osteoarthritis of the right knee and new injury to the right knee. She is currently being treated by Orthopedics. She underwent cortisone injection about 4 weeks ago and is scheduled to start physical therapy for her right knee later today. [facility] Medical History (Updated 05/04/23 @ 09:47 by Padmini Garcia, CIGARETTE MAKING MACHINE CATCHER, SECURITY SYSTEMS ADMINISTRATOR) Remove/insert IUD Kidney stone Ovarian cyst Ureteral stone Right flank pain Left knee pain Memory deficit Acute pain Pain management Knee swelling Knee injury Asthma exacerbation Acute sinusitis Elevated LFTs Impaired fasting glucose Postsurgical hypothyroidism Benign essential hypertension COVID-19 vaccine administered Obesity Pericardial effusion Hypercholesterolemia History of thyroid cancer Vitamin D deficiency 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 Family history of von Willebrand disease Patellar fracture Closed right ankle fracture Lumbar disc herniation History of renal calculi Hypothyroid Vertigo Migraine Asthma Surgical History (Updated 04/19/23 @ 09:57 by Shashi Crabtree MD) S/P removal of left ovary Hx of arthroscopy of left knee Hx of tubal ligation History of pubovaginal sling Hx of cystoscopy History of ankle surgery History of cholecystectomy History of bladder surgery History of thyroid surgery History of back surgery History of section Family History Daughter Von Willebrand disease Other Asthma Diabetes Emphysema of lung Family history of bladder cancer Family history of breast cancer Family history of lung cancer Family history of prostate cancer Social History Household Members: Family and Children Housing: House Do you presently have visiting nurse or other home services: No Alcohol intake: never Comment: medicated, see MAR Patient Tobacco Use Status: Never used Tobacco e-Cigarette/Vaping Use: Never Used Second Hand Smoke Exposure: No service: No Current occupational status: employed 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 Cognitive needs: No Hearing needs: No Vision needs: No Female Reproductive History Menstrual Age of Menarche: 14 Review of Systems Const All systems reviewed & are unremarkable except as noted in HPI and below Physical Exam Vital Signs: Last Vital Signs Pulse 86 05/04/23 09:11 Resp 18 05/04/23 09:11 BP 146/90 H 05/04/23 09:11 Pulse Ox 98 05/04/23 09:11 Oxygen Delivery Method Room Air 05/04/23 09:11 BMI result Body Mass Index 42.5 General: awake, alert, oriented. Answers questions appropriately. Fully engaged in examination. Skin: warm, dry, intact HEENT: Normocephalic. Hearing intact. Cardiac: External chest normal in appearance. Respiratory: No cough, audible wheezing or stridor. Abdomen: without gross distension. MS: No obvious swelling or deformities. Able to transition from sit to stand unassisted. Neurological: Oriented to person, place, time and situation. Thought process intact. Psychiatric: Appropriate mood and affect. Good judgment and insight. Sprint removal: Dressing removed, Site dry, clean, intact. Area cleansed with chloraprep, lead removed with intact tip. Area cleansed again with chloraprep, bacitracin dressing with tegaderm applied. Patient tolerated removal well. Assessment & Plan Assessment & Plan (1) S/P left knee arthroscopy: Comment: left knee arthroscopy with medial and lateral partial meniscectomy and chondroplasty 05/05/2022 [place] Code(s): Z98.890 - Other specified postprocedural states (2) Left knee pain: Code(s): M25.562 - Pain in left knee Qualifiers: Chronicity: chronic Qualified Code(s): M25.562 - Pain in left knee; G89.29 - Other chronic pain (3) Meniscus degeneration: Code(s): M23.309 - Other meniscus derangements, unspecified meniscus, unspecified knee Qualifiers: Laterality: left Qualified Code(s): M23.307 - Other meniscus d erangements, unspecified meniscus, left knee Plan Alicia presents back to the office today for follow up and removal left saphenous nerve Sprint PNS. Patient reports continued pain and decreased mobility and function despite Sprint trial. Treatment options discussed with patient at length including genicular nerve block followed by genicular RFA pending results of the diagnostic testing versus PRP injections. Patient would like to proceed with PRP. She was advised that order will be submitted to the insurance and she will be called to schedule once approved. All questions and concerns were answered, patient agrees with the plan. Follow- up after PRP injection, sooner if needed. Per previous note from Dr Saldivar: Ultrasound exam in the office also revealed extruded medial meniscus tissue. Given her age and work situation, I think she would benefit from intra-articular as well as intrameniscal injections of platelet rich plasma to help regenerate and heel her torn meniscus. She has not benefited from arthroscopic surgery. She is also morbidly obese and would benefit from weight loss to arrest rapid progression of potential osteoarthritis in the future. I discussed these measures with her. For now we will focus on relief of pain be a peripheral nerve stimulation but going forward I would recommended trial of PRP therapy. Coding Level of Care Code Est Pt Level 3 (43639) Diagnoses S/P left knee arthroscopy Z98.890 Chronic pain of left knee M25.562; G89.29 Chronicity: chronic Degeneration of meniscus of left knee M23.307 Laterality: left
== END 2023-05-04 09:26 | disposition home or self-care (01) ==
PROVIDERS: PCP Internal Medicine; Visit Provider Registered Nurse Emergency
DX: M25.562 Pain in left knee (principal); G89.29 Other chronic pain; M23.307 Other meniscus derangements, unspecified meniscus, left knee; Z98.890 Other specified postprocedural states
CPT/HCPCS: 99213

== ENCOUNTER 2023-05-05 13:07 | Outpatient (REF) | payer OTHER, SELFPAY ==
--- NOTE | ~2023-05-05 | MM_ITS ---
EXAMINATION: MM SCREENING DIGITAL BREAST TOMOSYNTHESIS, BILATERAL CLINICAL INFORMATION: Screening. Asymptomatic. COMPARISON: Mammography: This study is compared with prior exams dating back to 2016. TECHNIQUE: Digital breast tomosynthesis is performed in both the craniocaudal and mediolateral oblique views along with computer-aided detection (CAD). Synthesized 2D images are generated from the tomosynthesis. FINDINGS: There are scattered areas of fibroglandular density (ACR BI-RADS breast composition Category b). There is a well-circumscribed focal asymmetry in the deep third of the upper outer quadrant of the left breast. Additional mammographic and targeted sonographic imaging of this finding is advised. In the right breast, there are no significant masses, abnormal calcifications, or other abnormalities. There is an inferiorly located asymmetry against the chest wall and within the skin of the right breast represents a previously drained sebaceous cyst which is likely reaccumulated. It measures approximately 1 cm in greatest dimension. This is a benign finding. MM/MM tomosynthesis screening BI IMPRESSION: Focal asymmetry of the left breast warrants additional mammographic and targeted sonographic evaluation. Benign finding right breast. ASSESSMENT: BI-RADS BI-RADS 0 - Incomplete: Needs additional Imaging. RECOMMENDATION: 1. Additional views of the left breast. 2. Targeted ultrasound if warranted after review of the additional views. 3. Radiology department staff will contact the patient for additional imaging. Additional Imaging required This examination should not preclude the clinical evaluation of a suspicious palpable abnormality. This patient's information was entered into a reminder system with a target due date for their next mammogram.
== END 2023-05-05 13:08 | disposition home or self-care (01) ==
LOC: HO.MAMMO 13:07
PROVIDERS: PCP Internal Medicine; Visit Provider Internal Medicine
DX: Z12.31 Encounter for screening mammogram for malignant neoplasm of breast (principal)
CPT/HCPCS: 77063; 77067

== ENCOUNTER → 2023-05-05 13:15 | Outpatient (BNV) | payer OTHER, SELFPAY | PROVIDERS: PCP Internal Medicine; Visit Provider Radiology Diagnostic Radiology | DX: Z12.31 Encounter for screening mammogram for malignant neoplasm of breast (principal) | CPT/HCPCS: 77063; 77067 ==

== ENCOUNTER → 2023-06-01 13:00 | Outpatient (BNV) | payer OTHER, SELFPAY | PROVIDERS: PCP Internal Medicine; Visit Provider Radiology Diagnostic Radiology | DX: N60.02 Solitary cyst of left breast (principal) | CPT/HCPCS: 76642; 77061; 77065 ==

== ENCOUNTER 2023-06-01 13:15 | Outpatient (REF) | payer OTHER, SELFPAY ==
--- NOTE | ~2023-06-01 | US_ITS ---
EXAMINATION: MM DIAGNOSTIC DIGITAL BREAST TOMOSYNTHESIS, LEFT US BREAST LIMITED, LEFT MAMMOGRAPHY: CLINICAL INFORMATION: Evaluate well-circumscribed focal asymmetry in the deep third of the upper outer quadrant of the left breast, seen on screening exam. COMPARISON: Mammography: 05/05/2023. 05/03/2022, 07/23/2015. TECHNIQUE: Digital breast tomosynthesis is performed in the following views: Full-field digital 3-D left mediolateral view, and 3-D spot compression left CC and MLO views. This was followed by a targeted left breast ultrasound. FINDINGS: There are scattered areas of fibroglandular density (ACR BI-RADS breast composition Category b). There is a well circumscribed mass in the upper outer quadrant of the left breast measuring approximately 1.4 cm in diameter. This has benign features and is isodense. This will be evaluated by ultrasound. No additional suspicious abnormalities in the left breast. ULTRASOUND: CLINICAL INFORMATION: Evaluate circumscribed 1.4 cm mass upper outer left breast. COMPARISON: None relevant. TECHNIQUE: Targeted sonographic evaluation was performed using a high frequency linear transducer. Attention to the upper outer quadrant of left breast was given. Selected archived documentation. FINDINGS: LEFT BREAST: -There is a minimally complicated cyst, oval in shape, circumscribed, measuring 1.0 x 0.5 x 1.1 cm, in the 2:00 axis of the left breast, 14 cm from the nipple, with low-level internal echoes but no definite vascular flow or soft tissue nodularity. This is probably benign. Six-month interval follow-up targeted left breast ultrasound recommended to ensure stability. No additional abnormal findings in the left breast upper outer quadrant. US/US breast LT limited mamm only IMPRESSION: There are no findings in the left breast suspicious for malignancy. There is a minimally complicated circumscribed cyst measuring 1.1 cm in the 2:00 axis of the left breast. This probably benign, and six-month interval follow-up targeted left breast ultrasound recommended to ensure stability. OVERALL ASSESSMENT: Mammography: BI-RADS 3 - Probably benign finding(s) - 12 month follow-up suggested Ultrasound: BI-RADS 3 - Probably benign finding(s) - 12 month follow-up suggested RECOMMENDATION: 6 Month F/U This patient's information was entered into a reminder system with a target due date for their next mammogram.
== END 2023-06-01 13:16 | disposition home or self-care (01) ==
LOC: HO.MAMMO 13:15
PROVIDERS: PCP Internal Medicine; Visit Provider Internal Medicine
DX: N64.89 Other specified disorders of breast (principal)
CPT/HCPCS: 76642; 77061; 77065

== ENCOUNTER 2023-06-13 15:55 | Outpatient (AMB) | payer OTHER, SELFPAY ==
[2023-06-13 15:57] VITALS: BP 132/86; PULSE 103; O2SAT 97; BMI 42.5
--- NOTE | 2023-06-13 15:57 | A.OFFPC_ITS ---
Vital Signs 06/13/23 15:57 Height 5 ft 1 in Weight 225 lb 0.4 oz BMI 42.5 BP 132/86 Blood Pressure Location Lt brachial Position Sitting Pulse 103 H Pulse Source Pulse Oximeter Pulse Oximetry (%) 97 Oxygen Delivery Method Room Air Intake Visit Reasons: 3 month f/u ( hypothyroid,ovarian cyst) Intake Note: Patient is here to follow up on 3 months Resident Care Supervisor Required: No Allergies oxycodone [OXYCODONE] Allergy (Intermediate, Verified 06/13/23 15:57) RASH,SHAKES, shakiness, body shaking, tremors Tobacco use date assessed: 06/13/23 Dental Screening Dental Screen Date: 06/13/23 HPI 3 month f/u ( hypothyroid,ovarian cyst) HPI Details 48-year-old morbidly obese female with a history of left knee art hroscopy post surgical hypothyroidism for thyroid cancer migraine coming in for follow-up last seen in March 2023. Review of the notes patient follows up with right ankle posttraumatic arthritis right ankle arthroscopy calcaneal osteotomy, posterior tibial tendon repair(ORIF of right bimalleolar ankle fracture)Orthopedics 3 and half years postop had injections done . Orthopedics expressed difficulty in removing the loose hardware. Received also note from Oncology regarding the status post robotic assisted left salpingo-oophorectomy and right salpingo-oophorectomy February 08 2023 for pelvic mass final pathology is benign. WILLsee GI for colon cancer screening otherwise no nausea no vomiting no chest pains no shortness a breath no bowel bladder symptoms. Patient is cell on the right ankle pain. 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 Family history of von Willebrand disease Patellar fracture Closed right ankle fracture Lumbar disc herniation History of renal calculi Hypothyroid Vertigo Migraine Asthma Surgical History (Updated 04/19/23 @ 09:57 by Shashi Crabtree MD) S/P removal of left ovary Hx of arthroscopy of left knee Hx of tubal ligation History of pubovaginal sling Hx of cystoscopy History of ankle surgery History of cholecystectomy History of bladder surgery History of thyroid surgery History of back surgery History of section Family History Daughter Von Willebrand disease Other Asthma Diabetes Emphysema of lung Family history of bladder cancer Family history of breast cancer Family history of lung cancer Family history of prostate cancer Social History Household Members: Family and Children Housing: House Do you presently have visiting nurse or other home services: No Alcohol intake: never Comment: medicated, see MAR Patient Tobacco Use Status: Never used Tobacco e-Cigarette/Vaping Use: Never Used Second Hand Smoke Exposure: No service: No Current occupational status: employed 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 Cognitive needs: No Hearing needs: No Vision needs: No Female Reproductive History Menstrual Age of Menarche: 14 Questionnaire Thrive Questionnaire Date Thrive assessed: 06/13/23 I am a: Patient What is your living situation today?: I have a steady place to live Within the past 12 months, did the food you bought not last and you didn't have the money to get more?: Never true Within the past 12 months, did you worry whether your food would run out before you got money to buy more?: Never true Do you have trouble paying for medicines?: No Do you have trouble getting transportation to medical appointments?: No Do you have trouble paying your heating and electricity bill?: No Do you have trouble taking care of your child, family member or friend?: No Do you have trouble with day-to-day activities such as bathing, preparing meals, shopping, managing finances, etc.?: No Are you currently unemployed and looking for a job?: No Are you interested in more education?: No THRIVE Score: 0 AUDIT C Alcohol Use Questionnaire (AUDIT-C) 1. How often do you have a drink containing alcohol?: Monthly or less 2. How many drinks containing alcohol do you have on a typical day when you are drinking?: 1 or 2 3. How often do you have six or more drinks on one occasion?: Never Total Score: 1 ACACIA-7 AMB Questionnaire ACACIA-7 Date ACACIA - 7 assessed: 06/13/23 Source: Developed by Drs. Juan Vega, Tatiana Dumas, Nikolay Ling and colleagues, with an educational gia from [employer]. Physical exam (Primary Care) Vital Signs: Last Vital Signs Pulse 103 H 06/13/23 15:57 BP 132/86 06/13/23 15:57 Pulse Ox 97 06/13/23 15:57 Oxygen Delivery Method Room Air 06/13/23 15:57 BMI result Body Mass Index 42.5 Tobacco/Smoking Status: Tobacco use Status Tobacco use date assessed 06/13/23 06/13/23 15:58 Patient Tobacco Use Status Never used Tobacco 06/13/23 15:58 e-Cigarette/Vaping Use Never Used 06/13/23 15:58 Thrive Assessment: Date of Thrive Assessment Date Thrive assessed 06/13/23 06/13/23 15:58 Const General: alert; No acute distress Eyes Conjunctivae: conjunctivae normal Resp Auscultation: clear to auscultation bilaterally Cardio Rate: regular rate Rhythm: regular rhythm GI Inspection: Yes normal to inspection Extrem General: Yes normal to inspection and No edema Assessment and Plan Assessment & Plan (1) S/P left knee arthroscopy: Comment: left knee arthroscopy with medial and lateral partial meniscectomy and chondroplasty 05/05/2022 [place] Code(s): Z98.890 - Other specified postprocedural states Plan: Continue being active (2) Hemorrhagic cyst of ovary: Comment: Right Code(s): N83.209 - Unspecified ovarian cyst, unspecified side Plan: Status post oophorectomy benign (3) Obesity: Code(s): E66.9 - Obesity, unspecified Plan: Diet and exercise (4) Benign essential hypertension: Code(s): I10 - Essential (primary) hypertension Plan: Continue with blood pressure medication. Decrease salt intake and exercise lisinopril 40 mg once a day amlodipine 5 mg once a day (5) Postsurgical hypothyroidism: Comment: S/P thyroidectomy by Dr. Dalton in 2005 Code(s): E89.0 - Postprocedural hypothyroidism Plan: TSH is normal (6) History of thyroid cancer: Comment: Dr. Arash Stanton GEn Code(s): Z85.850 - Personal history of malignant neoplasm of thyroid Plan: Continue to follow-up with the TSH blood work (7) Closed right ankle fracture: Comment: tammyolar ankle fracture March 2017 right ankle hardware fracture November [address] Gomez 05/2018 Code(s): S82.891A - Other fracture of right lower leg, initial encounter for closed fracture Plan: Patient follows up with orthopedics. Coding Level of Care Code Est Pt Level 4 (15002) Diagnoses S/P left knee arthroscopy Z98.890 Hemorrhagic cyst of ovary N83.209 Obesity E66.9 Benign essential hypertension I10 Postsurgical hypothyroidism E89.0 History of thyroid cancer Z85.850 Closed right ankle fracture S82.891A
== END 2023-06-13 16:36 | disposition home or self-care (01) ==
PROVIDERS: PCP Internal Medicine; Visit Provider Internal Medicine
DX: E89.0 Postprocedural hypothyroidism (principal); Z85.850 Personal history of malignant neoplasm of thyroid; E66.9 Obesity, unspecified; Z68.41 Body mass index [BMI] 40.0-44.9, adult; S82.891A Other fracture of right lower leg, initial encounter for closed fracture
CPT/HCPCS: 99214

== ENCOUNTER → 2023-06-23 10:24 | Outpatient (BNVA) | payer OTHER, SELFPAY | PROVIDERS: PCP Internal Medicine; Visit Provider Physician Assistant Surgical ==

== ENCOUNTER 2023-06-30 08:56 | Outpatient (AMB) | payer OTHER, SELFPAY ==
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
[2023-06-30 09:00] VITALS: BP 148/79; PULSE 88; BMI 41.9
== END 2023-06-30 09:58 | disposition home or self-care (01) ==
PROVIDERS: PCP Internal Medicine; Visit Provider Nurse Practitioner
DX: Z01.818 Encounter for other preprocedural examination (principal); J45.31 Mild persistent asthma with (acute) exacerbation; K21.9 Gastro-esophageal reflux disease without esophagitis
CPT/HCPCS: 99203

== ENCOUNTER → 2023-06-30 08:56 | Outpatient (BNVA) | payer OTHER, SELFPAY | PROVIDERS: PCP Internal Medicine; Visit Provider Nurse Practitioner | DX: Z01.818 Encounter for other preprocedural examination (principal); J45.31 Mild persistent asthma with (acute) exacerbation; K21.9 Gastro-esophageal reflux disease without esophagitis | CPT/HCPCS: 99202 ==

== ENCOUNTER 2023-07-07 11:18 | Outpatient (AMB) | payer OTHER, SELFPAY ==
[2023-07-07 11:22] VITALS: BP 137/81; PULSE 72; O2SAT 100; BMI 42.4
--- NOTE | 2023-07-07 11:22 | MHC.OFFVIS ---
Intake Vital Signs 07/07/23 11:22 Height 5 ft 1 in Weight 224 lb 7 oz BMI 42.4 BP 137/81 Blood Pressure Location Lt brachial Position Sitting Pulse 72 Pulse Source Pulse Oximeter Pulse Oximetry (%) 100 Oxygen Delivery Method Room Air Intake Visit Reasons: CHRONIC KNEE PAIN Intake Note: Pain today 8/10 Ham Sawyer Required: No Accompanied by: Self / Same As Patient Allergies oxycodone [OXYCODONE] Allergy (Intermediate, Verified 07/07/23 11:23) RASH,SHAKES, shakiness, body shaking, tremors HPI HPI Comments History of Present Illness Details Alicia presents back to the office today for worsening left knee pain PA was submitted in April to her workmen's screw machine adjuster automatic for PRP, we are still waiting for response. Patient reports that she has been dealing with a new screw machine adjuster automatic that has been neglecting her requests. She will reach out to her cloud consultant and the screw machine adjuster automatic in hopes that this can get moved along Until then she is frustrated with the knee pain and inability to return to work Last steroid injection was performed by orthopedics with no improvement Pain is worse with walking and she feels at times that is unstable and might give out. She also reports swelling when she walks for greater than 30 minutes Prior: Patient presents back to the office today for follow-up, removal of left saphenous nerve sprint PNS. Patient reports that pain today is 7/10. She has been in contact closely with the sprint wrap and adjusting stimulation as instructed. She does not feel that she got much relief from the sprint device. Continues with pain to the medial knee with standing and twisting. Patient is frustrated and was hoping to be back to work much quicker than this. Prior: Alicia presents to the office today for follow up 1 week s/p left saphenous nerve Sprint PNS placement. Patient tolerated procedure well. Has changed dressing at home without difficulty. Pain today rated as 3/10 at insertion site. She has been in contact with Sprint Rep, titrating stimulation and tolerating well. She reports improvement in pain, function and mobility of the left knee. Prior: Alicia presents back to the office today for follow up 2 days s/p diagnostic left saphenous nerve block Patient reports 100% pain relief for approx 8 hours after the injection. She reports improvement in function and mobility, states I was able to walk more than I have in a long time . She would like to proceed with left saphenous nerve sprint PNS. Prior: Alicia is a very pleasant 47-year-old female who presents to the office today for evaluation and management of her left knee pain. Patient reports that she has been suffering with this pain since April 2021. Prior to this she had injured her knee at work and underwent left knee arthroscopic surgery. She states some pain improvement after surgery but there is some pain laterally that persists. She reports pain is worse with movement and area is tender to palpation. Pain today is rated as a 5/10, constant throughout the day. She has completed physical therapy for his pain that helped some, she continues with home exercise program but the pain does not improve. Currently she is using only topical gel cream for the pain. She has tried Tylenol and Motrin in the past without any improvement. In terms of muscle damage condition is described as aching and throbbing. Pain is negatively impacting patient's intermittent left, general activity, normal work, recreational activities and walking. Patient is also suffering with osteoarthritis of the right knee and new injury to the right knee. She is currently being treated by Orthopedics. She underwent cortisone injection about 4 weeks ago and is scheduled to start physical therapy for her right knee later today. [facility] Medical History (Updated 06/30/23 @ 09:27 by KATHERYN Hamilton) Meniscus degeneration Well woman exam Gastroenteritis Internal derangement of right knee Preop exam for internal medicine Bilateral ovarian cysts Malpositioned IUD Right lower quadrant pain Right flank pain Left knee pain Anserine bursitis COVID-19 virus infection Dawson angioma Shoulder pain, left Asthma exacerbation 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 Family history of von Willebrand disease Closed right ankle fracture Epidermal inclusion cyst Remove/insert IUD Kidney stone Ovarian cyst Ureteral stone Memory deficit Acute pain Pain management Knee swelling Knee injury Acute sinusitis Elevated LFTs Impaired fasting glucose Postsurgical hypothyroidism Benign essential hypertension COVID-19 vaccine administered Obesity Pericardial effusion Hypercholesterolemia History of thyroid cancer Vitamin D deficiency Patellar fracture Lumbar disc herniation History of renal calculi Hypothyroid Vertigo Migraine Asthma Surgical History S/P left knee arthroscopy S/P removal of left ovary Hx of arthroscopy of left knee Hx of tubal ligation History of pubovaginal sling Hx of cystoscopy History of ankle surgery History of cholecystectomy History of bladder surgery History of thyroid surgery History of back surgery History of section Family History Daughter Von Willebrand disease Other Asthma Diabetes Emphysema of lung Family history of bladder cancer Family history of breast cancer Family history of lung cancer Family history of prostate cancer Social History Household Members: Family and Children Housing: House Do you presently have visiting nurse or other home services: No Alcohol intake: never Comment: medicated, see MAR Patient Tobacco Use Status: Never used Tobacco e-Cigarette/Vaping Use: Never Used Second Hand Smoke Exposure: No service: No Current occupational status: employed 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 Cognitive needs: No Hearing needs: No Vision needs: No Female Reproductive History Menstrual Age of Menarche: 14 Review of Systems Const All systems reviewed & are unremarkable except as noted in HPI and below Physical Exam Vital Signs: Last Vital Signs Pulse 72 07/07/23 11:22 BP 137/81 07/07/23 11:22 Pulse Ox 100 07/07/23 11:22 Oxygen Delivery Method Room Air 07/07/23 11:22 BMI result Body Mass Index 42.4 General: awake, alert, oriented. Answers questions appropriately. Fully engaged in examination. Skin: warm, dry, intact HEENT: Normocephalic. Hearing intact. Cardiac: External chest normal in appearance. Respiratory: No cough, audible wheezing or stridor. Abdomen: without gross distension. MS: No obvious swelling or deformities. Able to transition from sit to stand unassisted. Decreased range of motion left knee Diffuse tenderness to palpation offer any Neurological: Oriented to person, place, time and situation. Thought process intact. Psychiatric: Appropriate mood and affect. Good judgment and insight. Assessment & Plan Assessment & Plan (1) S/P left knee arthroscopy: Comment: left knee arthroscopy with medial and lateral partial meniscectomy and chondroplasty 05/05/2022 [place] Code(s): Z98.890 - Other specified postprocedural states (2) Left knee pain: Code(s): M25.562 - Pain in left knee Qualifiers: Chronicity: chronic Qualified Code(s): M25.562 - Pain in left knee; G89.29 - Other chronic pain (3) Meniscus degeneration: Code(s): M23.309 - Other meniscus derangements, unspecified meniscus, unspecified knee Qualifiers: Laterality: left Qualified Code(s): M23.307 - Other meniscus derangements, unspecified meniscus, left knee Plan Alicia presents back to the office today for follow up left knee pain. Continue with plan for PRP once approved by workmen's comp Will try gabapentin 100 mg p.o. t.i.d. patient advised on cautions for use. Recommended patient obtain compression brace to utilize with walking or exercise. Patient advised to limit use while she is at home and only use as needed to avoid weakening of the surrounding musculature All questions and concerns were answered, patient agrees with the plan. Follow-up after PRP injection, sooner if needed. Per previous note from Dr Saldivar: Ultrasound exam in the office also revealed extruded medial meniscus tissue. Given her age and work situation, I think she would benefit from intra-articular as well as intrameniscal injections of platelet rich plasma to help regenerate and heel her torn meniscus. She has not benefited from arthroscopic surgery. She is also morbidly obese and would benefit from weight loss to arrest rapid progression of potential osteoarthritis in the future. I discussed these measures with her. For now we will focus on relief of pain be a peripheral nerve stimulation but going forward I would recommended trial of PRP therapy. Medications: New gabapentin 100 mg PO TID 90 caps 0RF Coding Level of Care Code Est Pt Level 4 (28788) Diagnoses S/P left knee arthroscopy Z98.890 Chronic pain of left knee M25.562; G89.29 Chronicity: chronic Degeneration of meniscus of left knee M23.307 Laterality: left
== END 2023-07-07 11:42 | disposition home or self-care (01) ==
PROVIDERS: PCP Internal Medicine; Visit Provider Registered Nurse Emergency
DX: Z98.890 Other specified postprocedural states (principal); M25.562 Pain in left knee; G89.29 Other chronic pain; M23.307 Other meniscus derangements, unspecified meniscus, left knee
CPT/HCPCS: 99214

== ENCOUNTER → 2023-07-07 11:18 | Outpatient (BNVA) | payer OTHER, SELFPAY | PROVIDERS: PCP Internal Medicine; Visit Provider Registered Nurse Emergency | DX: G89.29 Other chronic pain (principal); M25.562 Pain in left knee; M23.307 Other meniscus derangements, unspecified meniscus, left knee; Z98.890 Other specified postprocedural states | CPT/HCPCS: 99212 ==

== ENCOUNTER 2023-07-16 18:28 | Emergency (ER) | payer OTHER, SELFPAY ==
[2023-07-16 18:31] VITALS: BP 90/75; PULSE 108; RESP 18; TEMP 37.2; O2SAT 96; BMI 42.9
--- NOTE | 2023-07-16 18:31 | ED.URI ---
HPI - URI/Sore Throat General Chief Complaint: Nausea/Vomiting/Diarrhea Stated Complaint: Flu like symptoms/Vomiting Time Seen by Provider: 07/16/23 19:11 Source: patient Mode of arrival: ambulatory Limitations: no limitations History of Present Illness HPI Narrative: 48 yo female with GERD, asthma, thyroid cancer, vertigo, migraines, HTN here with diarrhea, body aches, vomiting, subjective fevers, chills x 4 days. Children at home have flu No abdominal pain, chest pain, shortness of breath, neck pain, neck stiffness, skin rash Related Data Home Medications ?Medication ?Instructions ?Recorded ?Confirmed levonorgestrel 21 mcg/24 hours (8 intrauterine 11/03/22 01/24/23 yrs) 52 mg intrauterine device (Mirena) ibuprofen 800 mg tablet 800 mg PO TID 05/04/23 levothyroxine 100 mcg capsule 100 mcg PO DAILY 07/07/23 (Tirosint) Previous Rx's ?Medication ?Instructions ?Recorded blood pressure monitor #1 ea 03/05/21 cholestyramine-aspartame 4 gram 4 g PO BID #231 grams 02/18/23 oral powder (Prevalite) Lactobacillus rhamnosus GG 10 1 cap PO DAILY #20 caps 03/31/23 billion cell capsule (Culturelle) levothyroxine 150 mcg capsule 300 mcg (2 x 150 mcg) PO DAILY 90 04/01/23 (Tirosint) days #180 caps albuterol sulfate 90 mcg/actuation 2 puff inhalation Q6H PRN 04/03/23 aerosol inhaler (ProAir HFA) shortness of breath or wheezing 30 days #8.5 grams diclofenac sodium 1 % topical gel 4 g topical QID #100 grams 04/03/23 (Voltaren Arthritis Pain) rizatriptan 10 mg tablet 10 mg PO .QD PRN migraine headache 04/04/23 #14 tabs lisinopril 40 mg tablet 40 mg PO DAILY 30 days #90 tabs 05/06/23 pyridoxine (vitamin B6) 100 mg 100 mg PO DAILY 90 days #90 tabs 05/06/23 tablet cholecalciferol (vitamin D3) 25 25 mcg PO DAILY #90 caps 05/11/23 mcg (1,000 unit) capsule amlodipine 5 mg tablet 5 mg PO DAILY #90 tabs 06/15/23 meclizine 25 mg tablet 25 mg PO TID PRN for dizziness #90 06/15/23 tabs bisacodyl 5 mg tablet,delayed 10 mg (2 x 5 mg) PO BEDTIME 2 days 06/30/23 release (Dulcolax (bisacodyl)) #4 tabs omeprazole 20 mg capsule,delayed 20 mg PO QAM 30 days #30 caps 06/30/23 release sodium,potassium,mag sulfates 17.5 480 ml PO .COMPLEX #354 mL 06/30/23 gram-3.13 gram-1.6 gram oral soln (Suprep Bowel Prep Kit) gabapentin 100 mg capsule 100 mg PO TID #90 caps 07/07/23 ondansetron 4 mg disintegrating 4 mg PO Q6-8H PRN nausea and 07/17/23 tablet vomiting #10 tabs Allergies Allergy/AdvReac Type Severity Reaction Status Date / Time oxycodone [OXYCODONE] Allergy Intermediate RASH,SHAKES, Verified 07/16/23 18:34 shakiness, body shaking, tremors Review of Systems Review of Systems: Yes all other systems are reviewed and are negative Constitutional: Constitutional: Reports no additional constitutional complaints, Reports body ache(s), Reports chills, Reports fever(s), Denies headache(s) and Denies weakness Eyes: Eyes: Reports no additional eye complaints and Denies change in vision ENT: Reports system reviewed and no additional complaints, except as documented, Denies dizziness, Denies headache(s), Denies nasal congestion, Denies nasal discharge and Denies neck pain Cardiovascular: Cardiovascular: Reports no additional cardiovascular complaints, Denies chest pain, Denies leg edema and Denies dyspnea Respiratory: Respiratory: Reports no additional respiratory complaints, Denies cough and Denies dyspnea Gastrointestinal: Gastrointestinal: Reports no additional gastrointestinal complaints, Denies abdominal pain, Reports diarrhea, Reports nausea and Reports vomiting Genitourinary: Genitourinary: Reports no additional female genitourinary complaints and Denies urinary incontinence Musculoskeletal: Musculoskeletal: Reports no additional musculoskeletal complaints, Denies back pain, Denies arthralgias, Denies joint swelling, Denies neck pain, Denies numbness and Denies tingling Integumentary/Breasts: Skin/Breast: Reports system reviewed and no additional complaints, except as docu and Denies rash Neurologic: Reports system reviewed and no additional complaints, except as documented, Denies Abnormal speech present, Denies dizziness, Denies headache(s), Denies numbness, Denies tingling and Denies weakness PMF Past Medical History Attestation statement: The following information was validated with the patient. Source: old records reviewed and nursing notes reviewed Medical History Meniscus degeneration Well woman exam Gastroenteritis Internal derangement of right knee Preop exam for internal medicine Bilateral ovarian cysts Malpositioned IUD Right lower quadrant pain Right flank pain Left knee pain Anserine bursitis COVID-19 virus infection Dawson angioma Shoulder pain, left Asthma exacerbation 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 Family history of von Willebrand disease Closed right ankle fracture Epidermal inclusion cyst Remove/insert IUD Kidney stone Ovarian cyst Ureteral stone Memory deficit Acute pain Pain management Knee swelling Knee injury Acute sinusitis Elevated LFTs Impaired fasting glucose Postsurgical hypothyroidism Benign essential hypertension COVID-19 vaccine administered Obesity Pericardial effusion Hypercholesterolemia History of thyroid cancer Vitamin D deficiency Patellar fracture Lumbar disc herniation History of renal calculi Hypothyroid Vertigo Migraine Asthma Surgical History S/P left knee arthroscopy S/P removal of left ovary Hx of arthroscopy of left knee Hx of tubal ligation History of pubovaginal sling Hx of cystoscopy History of ankle surgery History of cholecystectomy History of bladder surgery History of thyroid surgery History of back surgery History of section Family History Family History Daughter Von Willebrand disease Other Asthma Diabetes Emphysema of lung Family history of bladder cancer Family history of breast cancer Family history of lung cancer Family history of prostate cancer Social History Social History Household Members: Family and Children Housing: House Do you presently have visiting nurse or other home services: No Alcohol intake: never Comment: medicated, see MAR Patient Tobacco Use Status: Never used Tobacco e-Cigarette/Vaping Use: Never Used Second Hand Smoke Exposure: No Advance Directives: No Advance Directives Information Provided: No service: No Current occupational status: employed 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 Cognitive needs: No Hearing needs: No Vision needs: No Physical Exam Vital Signs: Vital Signs: Last Vital Signs Temp 99.0 F 07/16/23 23:27 Pulse 89 07/16/23 23:27 Resp 16 07/16/23 23:27 BP 100/55 L 07/16/23 23:27 Pulse Ox 94 07/16/23 23:27 O2 Del Method Room Air 07/16/23 23:27 BMI result Body Mass Index 42.9 Const: General: cooperative, healthy appearing, comfortable and no acute distress Orientation/consciousness: patient oriented x3 Limitations: no limitations HEENT: Head: Yes normal to inspection Ears: hearing grossly normal bilaterally and TM's normal bilaterally General nose exam: Normal external nose present Face and sinus: Yes normal facial exam Mouth: Normal oral and palatal mucosa present Throat: Yes posterior oropharynx normal, Yes tonsils normal and Yes uvula midline Eyes: General: appearance normal, both eyes and all related structures Pupils: Equal, round and reactive pupils present Neck: Neck: Yes normal visual inspection, Yes full ROM, Yes no lymphadenopathy and Yes no meningeal signs Chest: Chest palpation & inspection: normal inspection of the chest Resp: Effort & Inspection: normal respiratory effort Auscultation: clear to auscultation bilaterally Cardio: Rate: regular rate Rhythm: regular rhythm Peripheral pulses: Peripheral pulses 2+ throughout GI: Inspection: Yes normal to inspection Palpation (GI): Soft to palpation and nontender Auscultation: normal bowel sounds Back/Spine/Pelvis: Thoracic/Lumbar Spine: thoracic and lumbar spine normal to inspection Skin: General skin exam: no rashes or lesions noted Neuro: General: patient oriented x3, no meningeal signs, no focal motor deficits and normal sensation to monofilament Cranial nerves: Yes Equal, round and reactive pupils present Cognition (Neuro): normal cognition Speech: No Abnormal speech present Gait exam (Neuro): Normal gait present Motor exam (neuro): 5/5 motor strength present throughout Extrem: General: Yes normal to inspection Course Course Course Narrative: This is a rapid medical exam. Deferred additional HPI, ROS, PE to primary provider. 48 yo female with GERD, asthma, thyroid cancer, vertigo, migraines, HTN here with diarrhea, body aches, vomiting x 4 days. Will send viral testing, give SL zofran VSS Reevaluation(s) Reevaluation #1: 2000-patient reports that after receiving her 1st dose of sublingual Zofran she had a coughing fit which caused her to vomit. Will re-attempt dose of Zofran and p.o. trial prior to discharge home. Reevaluation #2: 2049-patient received 2nd dose of Zofran but continued to have vomiting. Therefore will have nursing place an IV and give her IV fluids and obtain lab work Reevaluation #3: 2100-Sign out to Addie WOODS pending above Additional Reevaluation(s): Sign-out was given to me pending lab work and re-evaluation. Patient has no leukocytosis, stable H&H, chemistry nondiagnostic. Patient re-examined, feeling much better after receiving IV fluids and antiemetics. Patient discharged with Zofran. She is tolerating oral p.o. without difficulty. Patient stable for discharge. Medications Administered Discontinued Medications Generic Name Dose Route Start Last Admin Trade Name Freq PRN Reason Stop Dose Admin Diphenhydramine HCl 25 mg 07/16/23 20:52 07/16/23 21:35 Diphenhydramine Hcl 50 Mg/Ml Vial IVPUSH 07/16/23 20:53 25 mg ONCE ONE Administration Sodium Chloride 1,000 mls @ 999 mls/hr 07/16/23 20:51 07/16/23 21:32 Ns IV 07/16/23 21:51 999 mls/hr .Q1H1M STA Administration Metoclopramide HCl 5 mg 07/16/23 20:52 07/16/23 21:35 Metoclopramide Hcl 10 Mg/2 Ml Vial IVPUSH 07/16/23 20:53 5 mg ONCE ONE Administration Ondansetron HCl 4 mg 07/16/23 18:31 07/16/23 18:35 Ondansetron Odt 4 Mg Tab.Rapdis TRANSLINGU 07/16/23 18:32 4 mg ONCE ONE Administration Ondansetron HCl 4 mg 07/16/23 20:02 07/16/23 20:15 Ondansetron Odt 4 Mg Tab.Rapdis TRANSLINGU 07/16/23 20:03 4 mg ONCE ONE Administration Medical Decision Making Medical Decision Making MDM Narrative: 48 yo female with GERD, asthma, thyroid cancer, vertigo, migraines, HTN here with diarrhea, body aches, vomiting, subjective fevers, chills x 4 days. Children at home have flu No abdominal pain, chest pain, shortness of breath, neck pain, neck stiffness, skin rash No focal abdominal pain. Vitals are stable Will send testing for flu, provide antiemetics Differential Diagnosis Differential Diagnoses: The differential diagnosis associated with the presentation includes Influenza Admission/Observation Consideration of admission/observation: Escalation of care including admission/observation considered Lab Data MDM Lab Attestation statement: I reviewed the patient's lab results. 07/16/23 21:31 07/16/23 21:31 Labs: Lab Results 07/16/23 07/16/23 Range/Units 18:43 21:31 WBC 7.9 (4.8-10.8) X10*3/uL RBC 4.58 (4.20-5.50) X10*6/uL Hgb 13.7 (12.0-16.0) g/dl Hct 40.3 (37.0-47.0) % MCV 88.0 (80.0-98.0) fL MCH 29.9 (27.0-33.0) pg MCHC 34.0 (31.0-35.0) g/dl RDW 12.2 (11.0-16.0) % Plt Count 295 (160-400) X10*3/uL MPV 9.6 (9.4-12.3) fL Immature Gran % (Auto) 0.4 (0.0-0.4) % Neut % (Auto) 62.2 (45-73) % Lymph % (Auto) 23.3 (20-40) % Wells % (Auto) 12.3 H (2-11) % Eos % (Auto) 1.3 (0-4) % Baso % (Auto) 0.5 (0-2) % Lymph # (Auto) 1.8 (1.2-4.9) X10*3/uL Wells # (Auto) 1.0 (0.1-1.2) X10*3/uL Eos # (Auto) 0.1 (0.0-0.4) X10*3/uL Baso # (Auto) 0.0 (0.0-0.2) X10*3/uL Abs Immat Gran (auto) 0.03 (0.00-0.03) X10*3/uL Absolute Neuts (auto) 4.9 (2.0-8.3) x10*3/uL Absolute Nucleated RBC 0.000 (0.0-0.012) X10*3/uL Nucleated RBC % (auto) 0.0 (0.0-0.2) /100WBC Sodium 140 (135-145) mmol/L Potassium 3.7 (3.3-5.1) mmol/L Chloride 102 (96-108) mmol/L Carbon Dioxide 28 (22-29) mmol/L Anion Gap 14 (12-20) BUN 9 (9-16) mg/dL Creatinine 0.57 (0.5-1.4) mg/dL Estim Creat Clear Calc 136.0 Estimated GFR > 60 Random Glucose 118 H (60-115) mg/dL Calcium 9.1 (8.4-10.2) mg/dL Total Bilirubin 0.5 (0.0-1.0) mg/dL Direct Bilirubin 0.1 (0.0-0.5) mg/dL AST 42 H (5-31) U/L ALT 43 H (0-31) U/L Alkaline Phosphatase 61 (39-117) U/L Total Creatine Kinase 20 L (26-140) U/L Total Protein 7.5 (6.5-8.0) g/dL Albumin 4.0 (3.5-5.0) g/dL Influenza Type A (PCR) POSITIVE A (Negative) Influenza Type B (PCR) NEGATIVE (Negative) RSV RNA Qual (PCR) NEGATIVE (Negative) SARS-CoV-2 RNA (RT-PCR) NEGATIVE (Negative) Tests considered The following testing was considered but not selected: No hypoxia or tachypnea to suggest need for chest x-ray Prescription Management I considered prescription management with: Antiviral Flu positive with symptoms greater than 4 days. Not candidate for Tamiflu Discharge Plan Discharge Clinical Impression: Influenza A Patient Disposition: Still a Patient Instructions: Influenza (ED) Additional Instructions: Your flu test was positive. Due to her length of symptoms you are not a candidate for Tamiflu. Take Motrin or Tylenol if able as needed for pain or fever Increase fluids, rest Take nausea medication as needed Return for any worsening symptoms Prescriptions: New ondansetron 4 mg tablet,disintegrating 4 mg PO Q6-8H PRN (Reason: nausea and vomiting) Qty: 10 0RF No Action Prevalite 4 gram powder 4 g PO BID Qty: 231 3RF Rx Instructions: administer w/meal; avoid other meds within 1hr before or 4-6hr after dose levothyroxine [Tirosint] 150 mcg capsule 300 mcg PO DAILY 90 Days Qty: 180 3RF diclofenac sodium [Voltaren Arthritis Pain] 1 % gel 4 g topical QID Qty: 100 1RF Rx Instructions: apply to single knee, ankle, foot; for foot includes sole/toes/top of foot albuterol sulfate [ProAir HFA] 90 mcg/actuation HFA aerosol inhaler 2 puff inhalation Q6H PRN (Reason: shortness of breath or wheezing) 30 Days Qty: 8.5 3RF rizatriptan 10 mg tablet 10 mg PO .QD PRN (Reason: migraine headache) Qty: 14 12RF Rx Instructions: do not exceed 3 doses per 24 hrs lisinopril 40 mg tablet 40 mg PO DAILY 30 Days Qty: 90 3RF pyridoxine (vitamin B6) 100 mg tablet 100 mg PO DAILY 90 Days Qty: 90 3RF cholecalciferol (vitamin D3) 25 mcg (1,000 unit) capsule 25 mcg PO DAILY Qty: 90 2RF meclizine 25 mg tablet 25 mg PO TID PRN (Reason: for dizziness) Qty: 90 1RF amlodipine 5 mg tablet 5 mg PO DAILY Qty: 90 0RF (DME) blood pressure monitor Kit See Rx Instructions .ROUTE .MEDSUPPLY Qty: 1 0RF Rx Instructions: As directed Culturelle 10 billion cell capsule 1 cap PO DAILY Qty: 20 0RF Mirena 21 mcg/24 hours (8 yrs) 52 mg intrauterine device intrauterine ibuprofen 800 mg tablet 800 mg PO TID sodium,potassium,mag sulfates [Suprep Bowel Prep Kit] 17.5-3.13-1.6 gram recon soln 480 ml PO .COMPLEX Qty: 354 0RF Rx Instructions: 480 mL orally; FOR COLONOSCOPY PREP bisacodyl [Dulcolax (bisacodyl)] 5 mg tablet,delayed release (DR/EC) 10 mg PO BEDTIME 2 Days Qty: 4 0RF omeprazole 20 mg capsule,delayed release(DR/EC) 20 mg PO QAM 30 Days Qty: 30 3RF levothyroxine [Tirosint] 100 mcg capsule 100 mcg PO DAILY gabapentin 100 mg capsule 100 mg PO TID Qty: 90 0RF Referrals: Po,Tamela Enriquez MD [Primary Care Provider] - 10 days Print Language: Belgian
[2023-07-16] MEDS: Ondansetron ODT 4 MG TAB.RAPDIS TRANSLINGU ×2 (18:35→20:15)
[2023-07-16 19:50] LABS: Influenza A PCR POSITIVE (Negative); Influenza B PCR NEGATIVE (Negative); Resp Syncy Virus RNA Qual PCR NEGATIVE (Negative); SARS COV2 PCR INHOUSE NEGATIVE (Negative)
[2023-07-16] MEDS: 0.9 % Sodium Chloride 1,000 ML 999 ML IV (21:32)
[2023-07-16] MEDS: Metoclopramide HCl 10 MG/2 ML VIAL 5 MG IVPUSH (21:35)
[2023-07-16] MEDS: diphenhydrAMINE HCL 50 MG/ML VIAL 25 MG IVPUSH (21:35)
[2023-07-16 21:36] LABS: MANUAL DIFF FLAG NO
[2023-07-16 21:38] LABS: Basophils Percent Auto 0.5 % (0-2); Eosinophils Absolute Auto 0.1 X10*3/uL (0.0-0.4); Eosinophils Percent Auto 1.3 % (0-4); Hematocrit 40.3 % (37.0-47.0); Hemoglobin 13.7 g/dl (12.0-16.0); Imm Gran Abs Auto 0.03 X10*3/uL (0.00-0.03); Imm Gran Pct Auto 0.4 % (0.0-0.4); Lymphocytes Absolute Auto 1.8 X10*3/uL (1.2-4.9); Lymphocytes Percent Auto 23.3 % (20-40); Mean Corpuscular Hemoglobin 29.9 pg (27.0-33.0); Mean Platelet Volume 9.6 fL (9.4-12.3); Monocytes Percent Auto 12.3 % (2-11); Neutrophils Absolute Auto 4.9 x10*3/uL (2.0-8.3); Neutrophils Percent Auto 62.2 % (45-73); Platelet Count 295 X10*3/uL (160-400); Red Blood Count 4.58 X10*6/uL (4.20-5.50); Red Cell Distribution Width 12.2 % (11.0-16.0); White Blood Count 7.9 X10*3/uL (4.8-10.8)
[2023-07-16 22:17] LABS: Alanine Aminotransferase 43 U/L (0-31); Alkaline Phosphatase 61 U/L (39-117); Anion Gap 14 (12-20); Aspartate Amino Transferase 42 U/L (5-31); Bilirubin Direct 0.1 mg/dL (0.0-0.5); Bilirubin Total 0.5 mg/dL (0.0-1.0); Blood Urea Nitrogen 9 mg/dL (9-16); Calcium 9.1 mg/dL (8.4-10.2); Carbon Dioxide 28 mmol/L (22-29); Chloride 102 mmol/L (96-108); Estimated Glomerular Filt Rate > 60; Glucose Random 118 mg/dL (60-115); Potassium 3.7 mmol/L (3.3-5.1); Sodium 140 mmol/L (135-145); Total Protein 7.5 g/dL (6.5-8.0)
[2023-07-16 23:27] VITALS: BP 100/55; PULSE 89; RESP 16; TEMP 37.2; O2SAT 94
[2023-07-17 00:56] VITALS: BP 100/55; PULSE 89; RESP 16; TEMP 37.2; O2SAT 99
== END 2023-07-17 00:56 | disposition home or self-care (01) ==
PROVIDERS: Nurse Practitioner Family; Emergency Provider Emergency Medicine; PCP Internal Medicine
DX: J10.1 Influenza due to other identified influenza virus with other respiratory manifestations (principal); Z11.52 Encounter for screening for COVID-19
CPT/HCPCS: 0241U; 36415; 80048; 80076; 82550; 85025; 96361; 96374; 96375; 99283; 99284; J1200; J2765

== ENCOUNTER 2023-07-29 07:28 | Outpatient (REF) | payer OTHER, SELFPAY ==
--- NOTE | ~2023-07-29 | US_ITS ---
EXAMINATION: US RETROPERITONEAL LIMITED (RENAL ONLY) CLINICAL INFORMATION: Calculus of kidney. COMPARISON: Renal ultrasound 01/26/2023 and 01/13/2023. X-ray KUB 12/15/2022. CT abdomen and pelvis 08/12/2022. TECHNIQUE: Real-time imaging of the kidneys. FINDINGS: RIGHT KIDNEY: 14.7 x 6.8 x 6.8 cm (SAG x AP x TRV). The kidney is normal in size, contour, and echogenicity. Renal cortical thickness is normal. No calculi or focal parenchymal lesions. No hydronephrosis. LEFT KIDNEY: 13.6 x 7.0 x 5.2 cm (SAG x AP x TRV). The kidney is normal in size, contour, and echogenicity. Renal cortical thickness is normal. No calculi or focal parenchymal lesions. No hydronephrosis. US/US renal BI IMPRESSION: Unremarkable examination.
== END 2023-07-29 07:29 | disposition home or self-care (01) ==
LOC: HO.US 07:28
PROVIDERS: PCP Internal Medicine; Visit Provider Urology
DX: N20.0 Calculus of kidney (principal)
CPT/HCPCS: 76775

== ENCOUNTER 2023-07-29 10:41 | Outpatient (AMB) | payer OTHER, SELFPAY ==
[2023-07-29 10:43] VITALS: BP 130/80; PULSE 76; TEMP 36.3; O2SAT 97; BMI 43.3
--- NOTE | 2023-07-29 10:43 | AM.OFFWIN_ITS ---
Intake Vital Signs 07/29/23 10:43 Height 5 ft 1 in Weight 229 lb BMI 43.3 BP 130/80 Blood Pressure Location Lt brachial Position Sitting Pulse 76 Pulse Source Pulse Oximeter Temp 97.3 F Temp Source Temporal Artery Scan Pulse Oximetry (%) 97 Oxygen Delivery Method Room Air Intake Visit Reasons: EP cough Intake Note: pt is here today for cough started 3 weeks ago and blood in vomit Patient Tobacco Use Status: Never used Tobacco Allergies oxycodone [OXYCODONE] Allergy (Intermediate, Verified 07/29/23 10:46) RASH,SHAKES, shakiness, body shaking, tremors Do you need a note to return to daycare/school/sports/work: No HPI HPI Comments History of Present Illness Details 48 y/o female patient who presents to [facility] in clinic with c/o persistent cough x 3 weeks. Pt was seen and evaluated 07/16 at [facility], and she was diagnosed with Influenza A. [facility] Medical History Meniscus degeneration Well woman exam Gastroenteritis Internal derangement of right knee Preop exam for internal medicine Bilateral ovarian cysts Malpositioned IUD Right lower quadrant pain Right flank pain Left knee pain Anserine bursitis COVID-19 virus infection Dawson angioma Shoulder pain, left Asthma exacerbation 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 Family history of von Willebrand disease Closed right ankle fracture Epidermal inclusion cyst Remove/insert IUD Kidney stone Ovarian cyst Ureteral stone Memory deficit Acute pain Pain management Knee swelling Knee injury Acute sinusitis Elevated LFTs Impaired fasting glucose Postsurgical hypothyroidism Benign essential hypertension COVID-19 vaccine administered Obesity Pericardial effusion Hypercholesterolemia History of thyroid cancer Vitamin D deficiency Patellar fracture Lumbar disc herniation History of renal calculi Hypothyroid Vertigo Migraine Asthma Surgical History S/P left knee arthroscopy S/P removal of left ovary Hx of arthroscopy of left knee Hx of tubal ligation History of pubovaginal sling Hx of cystoscopy History of ankle surgery History of cholecystectomy History of bladder surgery History of thyroid surgery History of back surgery History of section Family History Daughter Von Willebrand disease Other Asthma Diabetes Emphysema of lung Family history of bladder cancer Family history of breast cancer Family history of lung cancer Family history of prostate cancer Social History Household Members: Family and Children Housing: House Do you presently have visiting nurse or other home services: No Alcohol intake: never Comment: medicated, see MAR Patient Tobacco Use Status: Never used Tobacco e-Cigarette/Vaping Use: Never Used Second Hand Smoke Exposure: No service: No Current occupational status: employed 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 Cognitive needs: No Hearing needs: No Vision needs: No Female Reproductive History Menstrual Age of Menarche: 14 Review of Systems Const All systems reviewed & are unremarkable except as noted in HPI and below Physical Exam Vital Signs: Last Vital Signs Temp 97.3 F 07/29/23 10:43 Pulse 76 07/29/23 10:43 BP 130/80 07/29/23 10:43 Pulse Ox 97 07/29/23 10:43 Oxygen Delivery Method Room Air 07/29/23 10:43 BMI result Body Mass Index 43.3 Const General: comfortable and no acute distress Nutritional Appearance: overweight Orientation/consciousness: patient oriented x3 HEENT Head: Yes normocephalic Ears: external ears normal and TM's normal bilaterally General nose exam: Normal external nose present and Normal nasal mucous membranes and turbinates present Face and sinus: Yes sinuses nontender Mouth: moist mucous membranes Throat: Yes posterior oropharynx normal Resp Effort & Inspection: normal respiratory effort, able to speak in complete sentences, no audible wheezes and Actively coughing Auscultation: clear to auscultation bilaterally, no crackles, no rales, no rhonchi and no wheezes Cardio Rate: regular rate Rhythm: regular rhythm Neuro General: patient oriented x3 Assessment & Plan Assessment & Plan (1) Cough in adult: Code(s): R05.9 - Cough, unspecified Plan: - OTC cough remedies - Take medicines as prescribed - Rest and hydrate with warm fluids - Acetaminophen for pain relief Medications: New prednisone 50 mg PO DAILY 5 days 5 tabs 0RF SOB R05.9 - Cough, unspecified doxycycline hyclate 100 mg PO BID 10 days 20 caps 0RF cough R05.9 - Cough, unspecified montelukast 10 mg PO BEDTIME 30 tabs 0RF R05.9 - Cough, unspecified benzonatate 100 mg PO TID 30 caps 0RF cough R05.9 - Cough, unspecified Coding Level of Care Code Est Pt Level 3 (93670) Diagnoses Cough in adult R05.9 Time Spent (min) 15
== END 2023-07-29 13:44 | disposition home or self-care (01) ==
PROVIDERS: PCP Internal Medicine; Visit Provider Nurse Practitioner Family
DX: R05.9 Cough, unspecified (principal)
CPT/HCPCS: 99213

== ENCOUNTER 2023-08-04 11:28 | Outpatient (AMB) | payer OTHER, SELFPAY ==
--- NOTE | 2023-08-04 11:36 | A.OFFVIS_ITS ---
Intake Visit Reasons: 6m/US/litholink Intake Note: Patient is Present for Follow Up Urology Medication:Vitamin B6 Antibiotic Allergies: None Blood Thinners:None Allergies oxycodone [OXYCODONE] Allergy (Intermediate, Verified 07/29/23 10:46) RASH,SHAKES, shakiness, body shaking, tremors Medication List - Last Reconciled 08/04/23 by Marcio Winslow MD albuterol sulfate 90 mcg/actuation (ProAir HFA) 2 puffs inhalation Q6H PRN 30 days amlodipine 5 mg PO DAILY benzonatate 100 mg PO TID bisacodyl (Dulcolax (bisacodyl)) 10 mg (2 x 5 mg) PO BEDTIME 2 days blood pressure monitor As directed cholecalciferol (vitamin D3) 25 mcg PO DAILY cholestyramine-aspartame 4 gram (Prevalite) 4 grams PO BID diclofenac sodium 1% (Voltaren Arthritis Pain) 4 grams topical QID doxycycline hyclate 100 mg PO BID 10 days gabapentin 100 mg PO TID ibuprofen 800 mg PO TID Lactobacillus rhamnosus GG (Culturelle) 1 cap PO DAILY levonorgestrel (Mirena) intrauterine levothyroxine 300 mcg PO DAILY lisinopril 40 mg PO DAILY 30 days meclizine 25 mg PO TID PRN montelukast (Singulair) 10 mg PO BEDTIME omeprazole 20 mg PO QAM 30 days ondansetron 4 mg PO Q6-8H PRN polyethylene glycol 3350 (Gavilax) grams PO prednisone 50 mg PO DAILY 5 days pyridoxine (vitamin B6) 50 mg PO DAILY 90 days rizatriptan 10 mg PO .QD PRN sodium,potassium,mag sulfates 17.5-3.13-1.6 gram (Suprep Bowel Prep Kit) 480 mL orally; FOR COLONOSCOPY PREP HPI Comments Details: Alicia Jenkins is a very pleasant female. They are a patient of Dr Pelaez. She is seen for the following urologic conditions - nephrolithiasis Six-month follow-up Ultrasound shows no stones Continue with high output urinary B6 Encourage fluids She will finish Lithol[facility] Nephrolithiasis/Urolithiasis:? Urolithiasis was diagnosed 2015 ? Seen in [facility] [place] [facility] 05/08/16, 04/13/20 ? The patient previously had kidney stones whose composition w unknown. ? Laboratory investigations include no recent labs. ? 24 Hour urine evaluation 07/12 , High oxalate > 30mg, Good Volume > 2.00 L, Low calcium <200, High Citrate. ? Prior treatment(s) include 06/11 , right, ureteroscopy - no stone, 06/15 left ureteroscopy laser lithotripsy - 12/18 R ESWL ? Prior imaging includes a - CT (computed tomography) scan of the abdomen/pelvis (stone protocol) 05/14 - multiple small stones seen in the right kidney. Images reviewed personally - 07/12 , a renal ultrasound, showing no evidence of stones - 04/17 CT scan left UVJ stone with mild hydroureteronephrosis - 08/17 CT scan 5 mm right, 2 mm left - 11/17 renal ultrasound right 6 mm stone, no stone left, 02/17 renal US no stones Known family history of von Willebrand's disease. Will need single dose tranexamic acid coverage in preop. [facility] Medical History Meniscus degeneration Well woman exam Gastroenteritis Internal derangement of right knee Preop exam for internal medicine Bilateral ovarian cysts Malpositioned IUD Right lower quadrant pain Right flank pain Left knee pain Anserine bursitis COVID-19 virus infection Dawson angioma Shoulder pain, left Asthma exacerbation 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 Family history of von Willebrand disease Closed right ankle fracture Epidermal inclusion cyst Remove/insert IUD Kidney stone Ovarian cyst Ureteral stone Memory deficit Acute pain Pain management Knee swelling Knee injury Acute sinusitis Elevated LFTs Impaired fasting glucose Postsurgical hypothyroidism Benign essential hypertension COVID-19 vaccine administered Obesity Pericardial effusion Hypercholesterolemia History of thyroid cancer Vitamin D deficiency Patellar fracture Lumbar disc herniation History of renal calculi Hypothyroid Vertigo Migraine Asthma Surgical History S/P left knee arthroscopy S/P removal of left ovary Hx of arthroscopy of left knee Hx of tubal ligation History of pubovaginal sling Hx of cystoscopy History of ankle surgery History of cholecystectomy History of bladder surgery History of thyroid surgery History of back surgery History of section Family History Daughter Von Willebrand disease Other Asthma Diabetes Emphysema of lung Family history of bladder cancer Family history of breast cancer Family history of lung cancer Family history of prostate cancer Social History Household Members: Family and Children Housing: House Do you presently have visiting nurse or other home services: No Alcohol intake: never Comment: medicated, see MAR Patient Tobacco Use Status: Never used Tobacco e-Cigarette/Vaping Use: Never Used Second Hand Smoke Exposure: No service: No Current occupational status: employed 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 Cognitive needs: No Hearing needs: No Vision needs: No Female Reproductive History Menstrual Age of Menarche: 14 Review of Systems Const Denies chills and Denies fever(s) Card Reports no additional complaints and Denies syncope Resp Denies cough GI Denies abdominal pain and Denies heartburn Reports as per HPI and Denies change in libido Neuro Denies syncope Psych Denies change in libido Endo Denies change in libido Physical Exam Const General: cooperative, healthy appearing, comfortable and no acute distress Orientation/consciousness: patient oriented x3 HEENT Face and sinus: Yes normal facial exam Mouth: moist mucous membranes Neck Neck: Yes normal visual inspection, Yes full ROM and Yes trachea midline Chest Chest palpation & inspection: normal inspection of the chest Resp Effort & Inspection: normal respiratory effort, able to speak in complete sentences and no respiratory distress GI Inspection: Yes normal to inspection Back/Spine/Pelvis Cervical Spine: normal cervical lordosis Thoracic/Lumbar Spine: thoracic and lumbar spine normal to inspection Skin General skin exam: no rashes or lesions noted Neuro General: patient oriented x3, gait normal, tone normal and moves all extremities Extrem General: Yes normal to inspection and Yes capillary refill normal Assessment & Plan Assessment & Plan (1) Nephrolithiasis: Comment: May 2020 allopurinol vitamin B6 right ESWL November 2022 Dr. Winslow Code(s): N20.0 - Calculus of kidney Category: Medical Plan Six-month follow-up Patient Instructions: Imaging studies, laboratory and physical exam results were discussed and reviewed in detail. No major barriers to patient understanding were identified. An opportunity to ask questions regarding the treatment plan was provided. All questions were answered. The patient expressed understanding and agreement with the above treatment plan. The patient is aware they should contact our office by phone for worsening of their current condition or the appearance of new urologic symptoms. Compliance is encouraged with any medications and followup testing that is ordered. It is a privilege to participate in the urologic care of your patient. If you have any questions or concerns regarding treatment for the above conditions, or other urologic issues, please do not hesitate to contact me. The office telephone contact is [phone]. This note is constructed using voice recognition software. While every effort has been made to ensure accuracy sewing department supervisor errors may have been included. Yours sincerely, Dr Marcio Winslow MD, [facility] - Urology Providers of Expert, Compassionate Care for the Genitourinary System Coding Level of Care Code Est Pt Level 3 (84939) Diagnoses Nephrolithiasis N20.0
== END 2023-08-04 11:54 | disposition home or self-care (01) ==
PROVIDERS: PCP Internal Medicine; Visit Provider Urology
DX: N20.0 Calculus of kidney (principal)
CPT/HCPCS: 99213

== ENCOUNTER → 2023-08-04 11:28 | Outpatient (BNVA) | payer OTHER, SELFPAY | PROVIDERS: PCP Internal Medicine; Visit Provider Urology | DX: N20.0 Calculus of kidney (principal) | CPT/HCPCS: 99212 ==

== ENCOUNTER 2023-08-15 07:58 | Outpatient (AMB) | payer OTHER, SELFPAY ==
--- NOTE | 2023-08-15 10:49 | MHC.OFFVISWM ---
VS Expanded 08/15/23 11:12 Height 5 ft 1 in Weight 224 lb 4 oz BMI 42.4 Body Fat % 46 Body Fat Mass 103.2 Fat Free Mass 121 Visceral Fat Rating 14 Body Water % 38.5 Body Water Mass 86.4 Basal Metabolic Rate/Score 1,708 Intake Visit Reasons: 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 Allergies oxycodone [OXYCODONE] Allergy (Intermediate, Verified 08/15/23 10:49) RASH,SHAKES, shakiness, body shaking, tremors Medication List - Last Reconciled 08/15/23 by Wan Malagon MD albuterol sulfate 90 mcg/actuation (ProAir HFA) 2 puffs inhalation Q6H PRN 30 days amlodipine 5 mg PO DAILY blood pressure monitor As directed cholecalciferol (vitamin D3) 25 mcg PO DAILY cholestyramine-aspartame 4 gram (Prevalite) 4 grams PO BID diclofenac sodium 1% (Voltaren Arthritis Pain) 4 grams topical QID gabapentin 100 mg PO TID Lactobacillus rhamnosus GG (Culturelle) 1 cap PO DAILY levonorgestrel (Mirena) intrauterine levothyroxine 300 mcg PO DAILY lisinopril 40 mg PO DAILY 30 days meclizine 25 mg PO TID PRN montelukast (Singulair) 10 mg PO BEDTIME omeprazole 20 mg PO QAM 30 days ondansetron 4 mg PO Q6-8H PRN polyethylene glycol 3350 (Gavilax) grams PO pyridoxine (vitamin B6) 50 mg PO DAILY 90 days rizatriptan 10 mg PO .QD PRN sodium,potassium,mag sulfates 17.5-3.13-1.6 gram (Suprep Bowel Prep Kit) 480 mL orally; FOR COLONOSCOPY PREP HPI HPI 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: Details: Start time: 10.50am, End time: 11.38am ?I spent 43 minutes speaking with the patient on the phone plus an additional 5 minutes reviewing and updating records for a total of 48 minutes HPI Comments Details: Previous weight loss efforts: [facility] [place] [facility], Weight loss program ([place]) Wakes up: 6am, Sleeps: 10pm Breakfast: skips Lunch: 2pm (Chicken tenders with fries) Dinner: 7pm (Chicken, pork chops, potatoes) Snacks: none Exercise: none Fluids: Coffee/Tea: none, soda: regular Pepsi (3-4/wk), juice: lemonade or iced tea, ETOH: none PFSH Medical History (Updated 08/15/23 @ 11:04 by Wan Malagon MD) Morbid obesity Meniscus degeneration Well woman exam Gastroenteritis Internal derangement of right knee Preop exam for internal medicine Bilateral ovarian cysts Malpositioned IUD Right lower quadrant pain Right flank pain Left knee pain Anserine bursitis COVID-19 virus infection Dawson angioma Shoulder pain, left Asthma exacerbation 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 Family history of von Willebrand disease Closed right ankle fracture Epidermal inclusion cyst Remove/insert IUD Kidney stone Ovarian cyst Ureteral stone Memory deficit Acute pain Pain management Knee swelling Knee injury Acute sinusitis Elevated LFTs Impaired fasting glucose Postsurgical hypothyroidism Benign essential hypertension COVID-19 vaccine administered Obesity Pericardial effusion Hypercholesterolemia History of thyroid cancer Vitamin D deficiency Patellar fracture Lumbar disc herniation History of renal calculi Hypothyroid Vertigo Migraine Asthma Surgical History S/P left knee arthroscopy S/P removal of left ovary Hx of arthroscopy of left knee Hx of tubal ligation History of pubovaginal sling Hx of cystoscopy History of ankle surgery History of cholecystectomy History of bladder surgery History of thyroid surgery History of back surgery History of section Family History Daughter Von Willebrand disease Other Asthma Diabetes Emphysema of lung Family history of bladder cancer Family history of breast cancer Family history of lung cancer Family history of prostate cancer Social History Household Members: Family and Children Housing: House Do you presently have visiting nurse or other home services: No Alcohol intake: never Comment: medicated, see MAR Patient Tobacco Use Status: Never used Tobacco e-Cigarette/Vaping Use: Never Used Second Hand Smoke Exposure: No service: No Current occupational status: employed 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 Cognitive needs: No Hearing needs: No Vision needs: No Female Reproductive History Menstrual Age of Menarche: 14 Telehealth Telehealth Telehealth Platform: Telephone Location of provider rendering services: practice address Location of patient: address on file Patient Identification confirmed using: Name, : Yes Telehealth method: voice only Patient verbally consented to treatment: Yes Patient verbally consented to billing insurance company: Yes Patient informed of any privacy concerns related to visit: Yes Minutes spent on Phone/Video with Pt.: 48 Assessment & Plan Assessment & Plan (1) Morbid obesity: Code(s): E66.01 - Morbid (severe) obesity due to excess calories Category: Medical Plan: 1.? Plan for lap sleeve gastrectomy. If diaphragmatic or ventral hernias are present at time of surgery, these will be repaired laparoscopically as well. Risks and complications were discussed in detail including possible conversion to an open procedure, anastomotic leak, bleeding requiring transfusion, small bowel obstruction, , DVT and pulmonary embolism, cardiac, or pulmonary complications, as residential complications such as anastomotic ulcer, insufficient weight loss and vitamin deficiencies. I emphasized the importance of close follow-up, adherence to instructions and good communication. 2. You will receive a link of our software frances to generate an individualized nutritional and exercise plan specific for you. Please send me a screenshot of the plans you will generate Meal to include lean meat (beef, fish, pork, turkey, chicken), or irish yogurt, or egg whites, or beans with a salad with olive oil and fruits (berries, pears, apples, kiwi). Avoid salt, breads, potatoes, rice, pasta, desserts. ?3. If you choose shakes, each shake would be drunk slowly, like coffee in a period of 2 hours. ?4. If you choose bars, cut each bar in 4 pieces and eat each piece in 30min ?to make each bar last 2 hours. ?5. I emphasized the importance of measuring accurately the food portion and measure it when serving the food in plate ?6. The meal portions include a specific number of forks of meat and salad. You always eat the meat portion but you can replace up to half of salad/vegetables portion with rice, potatoes or pasta, or a fruit ?if you like. The less you do it the better weight loss will be. ?7. One full-size fork is what it can be scooped on the fork without falling aside and not what can be bit with the fork. Use regular forks like those you find in a typical restaurant. ?8.? Please send me weight measurements as soon as possible and then once a week. Always include your diet and exercise plan. 9. The best choice would be to purchase a stationary bike, elliptical or treadmill at home that can track calories. Let me know if you do so I can give you an exercise plan. ?10.?It is important of avoiding and for at least 18 months postoperatively and has been discussed at the infosession. ?11. Goal is to lose at least 1.5-2lbs per week ?12. Goal to lose 10% of your weight before surgery, which is about 22lbs. Ultimate weight goal: 202lbs before surgery 13. Please follow the diet plan exactly without any change. If you don't like something about the plan or you feel hungry you need to communicate with me so I can help you revise the plan. You should not change the plan yourself. 14. To be scheduled for EGD due to history of GERD. The possibility of biopsies was discussed. Patient needs to avoid use of NSAIDs and aspirin for 1 week prior to EGD. Risks of perforation and? bleeding was discussed with the patient. This will be an outpatient procedure with IV sedation. Orders: Orders Insulin Today E66.01 - Morbid (severe) obesity due to excess calories, E78.00 - Pure hypercholesterolemia, unspecified, J45.31 - Mild persistent asthma with (acute) exacerbation, K21.9 - Gastro-esophageal reflux disease without esophagitis Hemoglobin A1c Today E66.01 - Morbid (severe) obesity due to excess calories, E78.00 - Pure hypercholesterolemia, unspecified, J45.31 - Mild persistent asthma with (acute) exacerbation, K21.9 - Gastro-esophageal reflux disease without esophagitis Comprehensive Met. Panel Today E66.01 - Morbid (severe) obesity due to excess calories, E78.00 - Pure hypercholesterolemia, unspecified, J45.31 - Mild persistent asthma with (acute) exacerbation, K21.9 - Gastro-esophageal reflux disease without esophagitis TSH reflex Free T4 Today E66.01 - Morbid (severe) obesity due to excess calories, E78.00 - Pure hypercholesterolemia, unspecified, J45.31 - Mild persistent asthma with (acute) exacerbation, K21.9 - Gastro-esophageal reflux disease without esophagitis US abdomen comp w elastography Today E66.01 - Morbid (severe) obesity due to excess calories, E78.00 - Pure hypercholesterolemia, unspecified, J45.31 - Mild persistent asthma with (acute) exacerbation, K21.9 - Gastro-esophageal reflux disease without esophagitis XR chest 2V Today E66.01 - Morbid (severe) obesity due to excess calories, E78.00 - Pure hypercholesterolemia, unspecified, J45.31 - Mild persistent asthma with (acute) exacerbation, K21.9 - Gastro-esophageal reflux disease without esophagitis ECG 12 lead EKG Today E66.01 - Morbid (severe) obesity due to excess calories, E78.00 - Pure hypercholesterolemia, unspecified, J45.31 - Mild persistent asthma with (acute) exacerbation, K21.9 - Gastro-esophageal reflux disease without esophagitis H Pylori Breath Test Today E66.01 - Morbid (severe) obesity due to excess calories, E78.00 - Pure hypercholesterolemia, unspecified, J45.31 - Mild persistent asthma with (acute) exacerbation, K21.9 - Gastro-esophageal reflux disease without esophagitis Complete Blood Count Auto Diff Today E66.01 - Morbid (severe) obesity due to excess calories, E78.00 - Pure hypercholesterolemia, unspecified, J45.31 - Mild persistent asthma with (acute) exacerbation, K21.9 - Gastro-esophageal reflux disease without esophagitis Lipid Panel Today E66.01 - Morbid (severe) obesity due to excess calories, E78.00 - Pure hypercholesterolemia, unspecified, J45.31 - Mild persistent asthma with (acute) exacerbation, K21.9 - Gastro-esophageal reflux disease without esophagitis IRON PROFILE Today E66.01 - Morbid (severe) obesity due to excess calories, E78.00 - Pure hypercholesterolemia, unspecified, J45.31 - Mild persistent asthma with (acute) exacerbation, K21.9 - Gastro-esophageal reflux disease without esophagitis Vitamin B12 and Folate Today E66.01 - Morbid (severe) obesity due to excess calories, E78.00 - Pure hypercholesterolemia, unspecified, J45.31 - Mild persistent asthma with (acute) exacerbation, K21.9 - Gastro-esophageal reflux disease without esophagitis Zinc Today E66.01 - Morbid (severe) obesity due to excess calories, E78.00 - Pure hypercholesterolemia, unspecified, J45.31 - Mild persistent asthma with (acute) exacerbation, K21.9 - Gastro-esophageal reflux disease without esophagitis C Reactive Protein Today E66.01 - Morbid (severe) obesity due to excess calories, E78.00 - Pure hypercholesterolemia, unspecified, J45.31 - Mild persistent asthma with (acute) exacerbation, K21.9 - Gastro-esophageal reflux disease without esophagitis Vitamin B1 Today E66.01 - Morbid (severe) obesity due to excess calories, E78.00 - Pure hypercholesterolemia, unspecified, J45.31 - Mild persistent asthma with (acute) exacerbation, K21.9 - Gastro-esophageal reflux disease without esophagitis Vitamin A Today E66.01 - Morbid (severe) obesity due to excess calories, E78.00 - Pure hypercholesterolemia, unspecified, J45.31 - Mild persistent asthma with (acute) exacerbation, K21.9 - Gastro-esophageal reflux disease without esophagitis Ferritin Today E66.01 - Morbid (severe) obesity due to excess calories, E78.00 - Pure hypercholesterolemia, unspecified, J45.31 - Mild persistent asthma with (acute) exacerbation, K21.9 - Gastro-esophageal reflux disease without esophagitis Vitamin D 25-OH Total Today E66.01 - Morbid (severe) obesity due to excess calories, E78.00 - Pure hypercholesterolemia, unspecified, J45.31 - Mild persistent asthma with (acute) exacerbation, K21.9 - Gastro-esophageal reflux disease without esophagitis FL upper GI w air Today E66.01 - Morbid (severe) obesity due to excess calories, E78.00 - Pure hypercholesterolemia, unspecified, J45.31 - Mild persistent asthma with (acute) exacerbation, K21.9 - Gastro-esophageal reflux disease without esophagitis Referrals Behavioral Health Referral E66.01 - Morbid (severe) obesity due to excess calories, E78.00 - Pure hypercholesterolemia, unspecified, J45.31 - Mild persistent asthma with (acute) exacerbation, K21.9 - Gastro-esophageal reflux disease without esophagitis Nutrition/Dietitian Referral E66.01 - Morbid (severe) obesity due to excess calories, E78.00 - Pure hypercholesterolemia, unspecified, J45.31 - Mild persistent asthma with (acute) exacerbation, K21.9 - Gastro-esophageal reflux disease without esophagitis
[2023-08-15 11:12] VITALS: BMI 42.4
== END 2023-08-15 11:39 | disposition home or self-care (01) ==
LOC: HO.HBS 07:58
PROVIDERS: PCP Internal Medicine; Visit Provider Surgery
DX: E66.01 Morbid (severe) obesity due to excess calories (principal)
CPT/HCPCS: 99204

== ENCOUNTER → 2023-08-15 07:58 | Outpatient (BNVA) | payer OTHER, SELFPAY | PROVIDERS: PCP Internal Medicine; Visit Provider Surgery ==

== ENCOUNTER 2023-08-24 11:16 | Outpatient (REF) | payer OTHER, SELFPAY ==
--- NOTE | ~2023-08-24 | XR_ITS ---
EXAMINATION: XR CHEST CLINICAL INFORMATION: Morbid, severe obesity due to excess calories. COMPARISON: September 10, 2020, November 13, 2019. TECHNIQUE: 2 views of the chest were obtained. FINDINGS: The lung volumes are low. There is no gross pneumothorax. Heart size is normal. No pleural effusion. Surgical clips right upper quadrant. Mild degenerative changes in the thoracic spine. No new focal consolidation to suggest pneumonia. XR/XR chest 2V IMPRESSION: No evidence of pneumonia.
--- NOTE | 2023-08-24 11:23 | ECG_ITS ---
Test Reason : e66.01 Blood Pressure : / mmHG Vent. Rate : 087 BPM Atrial Rate : 087 BPM P-R Int : 146 ms QRS Dur : 084 ms QT Int : 350 ms P-R-T Axes : 042 007 034 degrees QTc Int : 421 ms Normal sinus rhythm Normal ECG When compared with ECG of 10-SEP-2020 15:17, No significant change was found Referred By: Wan Malagon Electronically Signed By:HEIDY TUCKER
[2023-08-24 11:42] LABS: MANUAL DIFF FLAG NO
[2023-08-24 12:40] LABS: Basophils Absolute Auto 0.1 X10*3/uL (0.0-0.2); Basophils Percent Auto 0.6 % (0-2); Eosinophils Absolute Auto 0.1 X10*3/uL (0.0-0.4); Eosinophils Percent Auto 0.9 % (0-4); Hematocrit 42.6 % (37.0-47.0); Hemoglobin 14.2 g/dl (12.0-16.0); Imm Gran Abs Auto 0.06 X10*3/uL (0.00-0.03); Imm Gran Pct Auto 0.6 % (0.0-0.4); Lymphocytes Absolute Auto 2.5 X10*3/uL (1.2-4.9); Lymphocytes Percent Auto 24.9 % (20-40); Mean Corpuscular HGB Conc 33.3 g/dl (31.0-35.0); Mean Corpuscular Hemoglobin 30.4 pg (27.0-33.0); Mean Corpuscular Volume 91.2 fL (80.0-98.0); Monocytes Absolute Auto 0.7 X10*3/uL (0.1-1.2); Monocytes Percent Auto 7.1 % (2-11); Neutrophils Absolute Auto 6.5 x10*3/uL (2.0-8.3); Neutrophils Percent Auto 65.9 % (45-73); Platelet Count 383 X10*3/uL (160-400); Red Blood Count 4.67 X10*6/uL (4.20-5.50); Red Cell Distribution Width 13.2 % (11.0-16.0); White Blood Count 9.9 X10*3/uL (4.8-10.8)
[2023-08-24 12:48] LABS: Estimated Average Glucose 120 mg/dL; Hemoglobin A1C 148.5232 umol/L; Hemoglobin A1c % 5.8 % (<6.0)
[2023-08-24 13:20] LABS: Alanine Aminotransferase 22 U/L (0-31); Albumin Level 4.5 g/dL (3.5-5.0); Alkaline Phosphatase 72 U/L (39-117); Anion Gap 12 (12-20); Aspartate Amino Transferase 19 U/L (5-31); Bilirubin Total 0.5 mg/dL (0.0-1.0); Blood Urea Nitrogen 16 mg/dL (9-16); C Reactive Protein 1.49 mg/dL (< or = 0.50); Calcium 10.1 mg/dL (8.4-10.2); Carbon Dioxide 27 mmol/L (22-29); Chloride 103 mmol/L (96-108); Cholesterol 189 mg/dL (<200); Estimated Glomerular Filt Rate > 60; Glucose Random 104 mg/dL (60-115); HDL Cholesterol 37 mg/dL (>40); Iron 78 mcg/dL (30-160); LDL Cholesterol Calculated 130 mg/dL (<100); Percent Iron Saturation 30 % (15-50); Sodium 138 mmol/L (135-145); Total Iron Binding Capacity 256 mcg/dL (228-428); Total Protein 7.6 g/dL (6.5-8.0); Triglycerides 114 mg/dL (<150); Unsaturated Iron Binding 178 ug/dL
[2023-08-24 13:45] LABS: Ferritin 501 ng/mL (10-250); Folate 8.3 ng/mL (> or = 4.0); Insulin 13 uU/mL (2-29); TSH reflex Free T4 1.55 uIU/mL (0.32-4.0); Vitamin B12 485 pg/mL (200-900); Vitamin D 25-OH Total 39.3 ng/mL (>30)
[2023-08-28 15:17] LABS: Vitamin B1 21 nmol/L (8-30)
[2023-08-28 16:58] LABS: Zinc 59 mcg/dL (60-130)
[2023-08-29 04:38] LABS: Vitamin A 39 mcg/dL (38-98)
== END 2023-08-24 11:17 | disposition home or self-care (01) ==
LOC: HO.XRAY 11:16
PROVIDERS: PCP Internal Medicine; Visit Provider Surgery
DX: E66.01 Morbid (severe) obesity due to excess calories (principal); K21.9 Gastro-esophageal reflux disease without esophagitis; J45.31 Mild persistent asthma with (acute) exacerbation; E78.00 Pure hypercholesterolemia, unspecified
CPT/HCPCS: 36415; 71046; 80053; 80061; 82306; 82607; 82728; 82746; 83036; 83525; 83540; 84425; 84443; 84590; 84630; 85025; 86140; 93005

== ENCOUNTER → 2023-08-24 11:23 | Outpatient (BNV) | payer OTHER, SELFPAY | PROVIDERS: PCP Internal Medicine; Visit Provider Internal Medicine | DX: E66.01 Morbid (severe) obesity due to excess calories (principal); Z01.810 Encounter for preprocedural cardiovascular examination | CPT/HCPCS: 93010 ==

== ENCOUNTER 2023-09-06 08:45 | Outpatient (AMB) | payer OTHER, SELFPAY ==
--- NOTE | 2023-09-06 09:17 | A.OFFWM_ITS ---
Intake Intake Visit Reasons: (TV) BH Intake Allergies oxycodone [OXYCODONE] Allergy (Intermediate, Verified 08/15/23 10:49) RASH,SHAKES, shakiness, body shaking, tremors [facility] Medical History (Updated 09/06/23 @ 10:12 by Yin Soliz) Morbid obesity Meniscus degeneration Well woman exam Gastroenteritis Internal derangement of right knee Preop exam for internal medicine Bilateral ovarian cysts Malpositioned IUD Right lower quadrant pain Right flank pain Left knee pain Anserine bursitis COVID-19 virus infection Dawson angioma Shoulder pain, left Asthma exacerbation 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 Family history of von Willebrand disease Closed right ankle fracture Epidermal inclusion cyst Remove/insert IUD Kidney stone Ovarian cyst Ureteral stone Memory deficit Acute pain Pain management Knee swelling Knee injury Acute sinusitis Elevated LFTs Impaired fasting glucose Postsurgical hypothyroidism Benign essential hypertension COVID-19 vaccine administered Obesity Pericardial effusion Hypercholesterolemia History of thyroid cancer Vitamin D deficiency Patellar fracture Lumbar disc herniation History of renal calculi Hypothyroid Vertigo Migraine Asthma Surgical History S/P left knee arthroscopy S/P removal of left ovary Hx of arthroscopy of left knee Hx of tubal ligation History of pubovaginal sling Hx of cystoscopy History of ankle surgery History of cholecystectomy History of bladder surgery History of thyroid surgery History of back surgery History of section Family History Daughter Von Willebrand disease Other Asthma Diabetes Emphysema of lung Family history of bladder cancer Family history of breast cancer Family history of lung cancer Family history of prostate cancer Social History Household Members: Family and Children Housing: House Do you presently have visiting nurse or other home services: No Alcohol intake: never Comment: medicated, see MAR Patient Tobacco Use Status: Never used Tobacco e-Cigarette/Vaping Use: Never Used Second Hand Smoke Exposure: No service: No Current occupational status: employed 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 Cognitive needs: No Hearing needs: No Vision needs: No Female Reproductive History Menstrual Age of Menarche: 14 Behavioral Health Assessment Weight Management Therapy Therapy Notes Details Patient reported that she is looking to have weight loss surgery to help improve her health and quality of life. Pt is not in therapy and only was during her childhood. no hx of any mental health treatment or problems with drugs or alcohol. Pt denied ever having any eating disorder symptoms . Presenting Concerns Referral Source provider Reason for referral weight loss surgery evaluation Precipitating Event obesity Living Situation Current Living Situation Rent At risk of losing current housing? No Satisfied with current living situation? Yes Comments Lives with her two adult daughters in a duplex. Food/Weight/Diet Expectations of change weight loss and maintenance History/Relationship with food Pt stated that she would skip meals, no hunger ques, maybe one meal a day, not a big snacker or junk food eater. Meals would be rice, chicken, pork, ribs, drinking Pepsi daily, History/Relationship with weight Patient reported struggling with her weight since thyroid cancer . Prior to that she was 185lbs. Prior to having kids she was 115lbs. She stated that with the medications and previous control, she would gain easily. Currently at her heaviest. History/Relationship with dieting [facility] 2017 [facility] lost 15lbs and then got sick with cancer. Has no done any specific dieting since then. Binge Eating Do you frequently eat large amounts of food in short periods of time, not feeling physically hungry? No Do you feel out of control when you eat a large amount of food in a short period of time? No Do you eat large amounts of food rapidly and typically alone? No Night Eating Do you wake up at least once during the night to eat? No If you wake up in the night, do you find that it is necessary to eat something in order to fall back asleep? No Do you have little or no appetite in the morning and feel very hungry in the evening, often overeating between dinner and when you go to bed? No Social History Family history and relationship Father lives in [place], not very close with anyone else. She has two daughters ages 20 and 21. Patient is for 4 years now. Parental/Familial rn recovery obligations none Developmental history and status no issues Social support very minimal supports, could not name anyone except her father. Community support none Anabaptism/Spirituality none Cultural/Ethnic information Legal Involvement and History Current or historical involvement with the legal system? none Education Highest grade completed GED and RETAIL CLERK certificate Preferred learning style Auditory, Verbal, Written, Learn by doing and Visual Currently enrolled in educational program? No Interested in further educational program? 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 No Meaningful activities Currently out of work due to injury at work. (torn meniscus). out of work for two years, had surgery, however they did imaging afterwards and found that it was still torn Financial Situation Describe current financial situation Occasional struggle Financial assistance? None Service Service? No Mental Health and Addiction Treatment Current/Past substance abuse? No Current/Past addictive behavior concerns? No Medical and Physical Health Summary Physical exam in the last year? Yes Pain Screening Current pain? Yes Medications Is the patient compliant with medications? Yes Does the patient have Leos Guardian in place? Not applicable Does the patient use complimentary health approaches? No Trauma/Abuse History History of trauma? Yes Questionnaires PHQ-9 Over the last 2 weeks, how often have you been bothered by any of the following problems? 1. Little interest or pleasure in doing things: several days 2. Feeling down, depressed, or hopeless: more than half the days 3. Trouble falling or staying asleep, or sleeping too much: more than half the days 4. Feeling tired or having little energy: several days 5. Poor appetite or overeating: several days 6. Feeling bad about yourself - or that you are a failure or have let yourself or your family down: several days 7. Trouble concentrating on things, such as reading the newspaper or watching television: more than half the days 8. Moving or speaking so slowly that other people could have noticed. Or the opposite - being so fidgety or restless that you have been moving around a lot more than usual: not at all 9. Thoughts that you would be better off or of hurting yourself in some way: not at all Total score: 10 Source: Developed by Drs. Juan Vega, Tatiana Dumas, Nikolay Ling and colleagues, with an educational gia from [employer]. Assessment & Plan Assessment & Plan (1) Vitamin D deficiency: Code(s): E55.9 - Vitamin D deficiency, unspecified (2) Obesity: Code(s): E66.9 - Obesity, unspecified (3) Unspecified nonpsychotic mental disorder: Code(s): F48.9 - Nonpsychotic mental disorder, unspecified Plan Patient stated that she struggles with exercise due to two year old injury. Also has very minimal supports. She will be seen again in office. Telehealth Telehealth Telehealth Platform: Telephone Location of provider rendering services: other Location of patient: other Patient Identification confirmed using: Name, : Yes Telehealth method: voice only Patient verbally consented to treatment: Yes Patient verbally consented to billing insurance company: Yes Patient informed of any privacy concerns related to visit: Yes Minutes spent on Phone/Video with Pt.: 45 Coding Level of Care Code Tele Psy Diag Eval (70695) Diagnoses Vitamin D deficiency E55.9 Obesity E66.9 Unspecified nonpsychotic mental disorder F48.9 Time Spent (min) 30
== END 2023-09-06 10:22 | disposition home or self-care (01) ==
PROVIDERS: PCP Internal Medicine; Visit Provider Counselor Mental Health
DX: E55.9 Vitamin D deficiency, unspecified (principal); E66.9 Obesity, unspecified; F48.9 Nonpsychotic mental disorder, unspecified
CPT/HCPCS: 90791

== ENCOUNTER → 2023-09-06 08:45 | Outpatient (BNVA) | payer OTHER, SELFPAY | PROVIDERS: PCP Internal Medicine; Visit Provider Counselor Mental Health ==

== ENCOUNTER 2023-09-20 07:50 | Outpatient (REF) | payer OTHER, SELFPAY ==
--- NOTE | ~2023-09-20 | US_ITS ---
EXAMINATION: US COMPLETE ABDOMEN WITH LIVER ELASTOGRAPHY CLINICAL INFORMATION: Morbid obesity. COMPARISON: None available. TECHNIQUE: Real-time imaging of the abdominal viscera. Noninvasive ultrasound liver fibrosis assessment is performed using Carmel ElastPQ point quantification shear wave elastography (2D-SWE) with a C5-2 MHz transducer. Multiple elastography samples are obtained. FINDINGS: PANCREAS: Normal. The visualized pancreatic head and body are normal in appearance. The remainder of the pancreas: The liver demonstrates normal size, contour and generally increased echogenicity. No focal lesion or intrahepatic biliary duct dilatation. The right lobe measures 21.0 cm in length. The left lobe measures 8.6 cm in length. Portal flow is towards the liver (hepatopetal). Shear wave liver elastography median stiffness is 1.44 m/s (reference: normal median stiffness is 1.3 m/s or less). IQR/median stiffness to assess sampling precision is 0.20 (reference: good quality data set is IQR/median stiffness of 0.15 or less). GALLBLADDER: Normal. The gallbladder is physiologically distended without evidence of stones, sludge, polyps, wall thickening or pericholecystic fluid. COMMON BILE DUCT: Normal in caliber measuring 0.7 cm in diameter. RIGHT KIDNEY: Normal. No hydronephrosis. No renal calculi or focal parenchymal lesions. The kidney measures 14.4 cm in maximum dimension. LEFT KIDNEY: There is very mild perinephric fluid. No hydronephrosis. No renal calculi or focal parenchymal lesions. The kidney measures 13.3 cm in maximum dimension. SPLEEN: Normal. The spleen measures 10.7 cm in maximum dimension. FREE FLUID: None. US/US abdomen comp w elastography IMPRESSION: 1. There is generalized increase in hepatic echotexture, consistent with fatty infiltration or hepatocellular disease. Please correlate clinically. No focal hepatic mass or intrahepatic biliary dilatation is seen. 2. There is hepatomegaly. 3. Liver elastography: In the absence of other known clinical signs, measurements rule out compensated advanced chronic liver disease. If there are known clinical signs, further testing may be needed for confirmation. 4. There is a slight right perinephric fluid collection. REFERENCE: Society of Radiologists in Ultrasound Liver Stiffness Thresholds (2020): LIVER STIFFNESS THRESHOLDS: *Liver Stiffness equal or less than 1.3 m/s: High probability of being normal. *Liver Stiffness less than 1.7 m/s: In the absence of other known clinical signs, rules out compensated advanced chronic liver disease. *Liver Stiffness 1.7-2.1 m/s: Suggestive of compensated advanced chronic liver disease but need further test for confirmation. *Liver Stiffness over 2.1 m/s: Rules in compensated advanced chronic liver disease. *Liver Stiffness over 2.4 m/s: Suggestive of clinically significant portal hypertension. QUALITY OF DATA SET: *IQR/Median value equal or less than 0.15 implies a quality data set. *IQR/Median value over 0.15 implies a poor quality data set. SIGNIFICANT CHANGE FROM PRIOR EXAM: Significant change if liver stiffness measurement is 10% or greater from prior exam. OTHER CONSIDERATIONS: The stage of liver fibrosis may be overestimated in the setting of acute hepatitis, liver inflammation, elevated liver function tests, hepatic vascular congestion, obstructive cholestasis, non-fasting state, and infiltrative diseases such as amyloidosis and lymphoma. In some patients with NAFLD, the liver stiffness thresholds for compensated advanced chronic liver disease may be lower. In causes other than viral hepatitis and NAFLD, liver stiffness thresholds are not well established.
== END 2023-09-20 07:51 | disposition home or self-care (01) ==
LOC: HO.US 07:50
PROVIDERS: PCP Internal Medicine; Visit Provider Surgery
DX: E66.01 Morbid (severe) obesity due to excess calories (principal); K21.9 Gastro-esophageal reflux disease without esophagitis; J45.31 Mild persistent asthma with (acute) exacerbation; E78.00 Pure hypercholesterolemia, unspecified
CPT/HCPCS: 76700; 76981

== ENCOUNTER 2023-09-22 06:09 | Outpatient (REF) | payer OTHER, SELFPAY | END 2023-09-22 06:10 | disposition home or self-care (01) | LOC: CF 06:09 | PROVIDERS: Visit Provider Internal Medicine | DX: Z13.89 Encounter for screening for other disorder (principal) ==

== ENCOUNTER 2023-09-22 08:41 | Outpatient (AMB) | payer OTHER, SELFPAY ==
--- NOTE | 2023-09-22 09:30 | A.OFFVIS_ITS ---
Vital Signs 09/22/23 10:21 09/22/23 10:22 BP 112/69 125/76 Blood Pressure Location Lt brachial Lt brachial Position Sitting Sitting Respiration 12 16 Pulse 65 72 Pulse Source Pulse Oximeter Pulse Oximeter Pulse Oximetry (%) 94 96 Oxygen Delivery Method Room Air Room Air Intake Visit Reasons: Left knee PRP (no filter) Allergies oxycodone [OXYCODONE] Allergy (Intermediate, Verified 08/15/23 10:49) RASH,SHAKES, shakiness, body shaking, tremors HPI HPI Left knee PRP (no filter): Details: Patient presents for scheduled procedure. Denies any recent cough, cold, infection, fever or other significant changes in medical history since last office visit. [facility] Medical History (Updated 09/22/23 @ 11:36 by Tobi Saldivar MD) Meniscus degeneration Left knee pain Morbid obesity Well woman exam Gastroenteritis Internal derangement of right knee Preop exam for internal medicine Bilateral ovarian cysts Malpositioned IUD Right lower quadrant pain Right flank pain Anserine bursitis COVID-19 virus infection Dawson angioma Shoulder pain, left Asthma exacerbation 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 Family history of von Willebrand disease Closed right ankle fracture Epidermal inclusion cyst Remove/insert IUD Kidney stone Ovarian cyst Ureteral stone Memory deficit Acute pain Pain management Knee swelling Knee injury Acute sinusitis Elevated LFTs Impaired fasting glucose Postsurgical hypothyroidism Benign essential hypertension COVID-19 vaccine administered Obesity Pericardial effusion Hypercholesterolemia History of thyroid cancer Vitamin D deficiency Patellar fracture Lumbar disc herniation History of renal calculi Hypothyroid Vertigo Migraine Asthma Surgical History S/P left knee arthroscopy S/P removal of left ovary Hx of arthroscopy of left knee Hx of tubal ligation History of pubovaginal sling Hx of cystoscopy History of ankle surgery History of cholecystectomy History of bladder surgery History of thyroid surgery History of back surgery History of section Family History Daughter Von Willebrand disease Other Asthma Diabetes Emphysema of lung Family history of bladder cancer Family history of breast cancer Family history of lung cancer Family history of prostate cancer Social History Household Members: Family and Children Housing: House Do you presently have visiting nurse or other home services: No Alcohol intake: never Comment: medicated, see MAR Patient Tobacco Use Status: Never used Tobacco e-Cigarette/Vaping Use: Never Used Second Hand Smoke Exposure: No service: No Current occupational status: employed 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 Cognitive needs: No Hearing needs: No Vision needs: No Female Reproductive History Menstrual Age of Menarche: 14 Physical Exam Vital Signs: Last Vital Signs Pulse 72 09/22/23 10:22 Resp 16 09/22/23 10:22 BP 125/76 09/22/23 10:22 Pulse Ox 96 09/22/23 10:22 Oxygen Delivery Method Room Air 09/22/23 10:22 Office Procedures Platelet Rich Plasma Injection PRP Joint Injection Left knee medial meniscus PRP injection After informed written consent was obtained, pre-procedure oxygen saturation, heart rate, and blood pressure were recorded. An 18 gauge butterfly needle was used to obtain 50 mL of whole blood from the right antecubital fossa. This was then mixed with 9 mL anticoagulant citrate dextrose solution. The 60 mL mixture was counter balanced to within 1 g and spun at 3500 rpm for 10 minutes. Platelet poor plasma was then drawn using a bench top press model. 6 mL of slightly leukocyte rich PRP was isolated in a 10 cc syringe. The left knee medial meniscus was identified using ultrasound. An in plane technique was used to advance a 25 gauge needle over and below the medial meniscus. 6 mL of slightly leukocyte rich PRP was injected surrounding the left medial meniscus. There was some pain on injection that relieved after the injection was over. The patient tolerated the procedure well and was discharged in stable condition. EBL: 50 mL XCELL Platelet Plasma - 0232T 60 mL All charges added?: Procedure code (CPT) selection complete Assessment & Plan Assessment & Plan (1) Left knee pain: Code(s): M25.562 - Pain in left knee Category: Medical Qualifiers: Chronicity: chronic Qualified Code(s): M25.562 - Pain in left knee; G89.29 - Other chronic pain (2) Meniscus degeneration: Code(s): M23.309 - Other meniscus derangements, unspecified meniscus, unspecified knee Category: Medical Qualifiers: Laterality: left Qualified Code(s): M23.307 - Other meniscus derangements, unspecified meniscus, left knee Plan Patient is status post left knee medial meniscus PRP injection with i ntrameniscal infiltration. Patient tolerated procedure well and was discharged home in stable condition with discharge instructions. All questions were answered. A prescription of tramadol was provided for the transient pain exacerbation that may follow the injection. Orders: Orders AMB Platelet Rich Plasma (PRP) Injection Today Tobi Saldivar MD G89.29 - Other chronic pain, M23.307 - Other meniscus derangements, unspecified meniscus, left knee, M25.562 - Pain in left knee US guide needle placement Today Padmini Garcia, BIODIESEL PROCESS CONTROL TECHNICIAN, FUNCTIONAL SKILLS TUTOR M17.12 - Unilateral primary osteoarthritis, left knee Medications: New tramadol 50 mg PO Q8H PRN 21 tabs 0RF pain Tobi Saldivar MD Coding Level of Care Code Procedure Only Diagnoses Chronic pain of left knee M25.562; G89.29 Chronicity: chronic Degeneration of meniscus of left knee M23.307 Laterality: left CPT Codes XCELL Kit 60mL ([id number])
[2023-09-22 10:21] VITALS: BP 112/69; PULSE 65; RESP 12; O2SAT 94
[2023-09-22 10:22] VITALS: BP 125/76; PULSE 72; RESP 16; O2SAT 96
== END 2023-09-22 10:24 | disposition home or self-care (01) ==
LOC: HO.PMCPRC 08:41
PROVIDERS: PCP Internal Medicine; Visit Provider Internal Medicine
DX: M25.562 Pain in left knee (principal); G89.29 Other chronic pain; M23.307 Other meniscus derangements, unspecified meniscus, left knee
CPT/HCPCS: 0232T

== ENCOUNTER 2023-09-26 10:13 | Outpatient (AMB) | payer OTHER, SELFPAY ==
--- NOTE | 2023-09-26 10:47 | MHC.WMTHER ---
Intake Intake Visit Reasons: (OV) f/u Allergies oxycodone [OXYCODONE] Allergy (Intermediate, Verified 08/15/23 10:49) RASH,SHAKES, shakiness, body shaking, tremors [facility] Medical History (Updated 09/22/23 @ 11:36 by Tobi Saldivar MD) Meniscus degeneration Left knee pain Morbid obesity Well woman exam Gastroenteritis Internal derangement of right knee Preop exam for internal medicine Bilateral ovarian cysts Malpositioned IUD Right lower quadrant pain Right flank pain Anserine bursitis COVID-19 virus infection Dawson angioma Shoulder pain, left Asthma exacerbation 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 Family history of von Willebrand disease Closed right ankle fracture Epidermal inclusion cyst Remove/insert IUD Kidney stone Ovarian cyst Ureteral stone Memory deficit Acute pain Pain management Knee swelling Knee injury Acute sinusitis Elevated LFTs Impaired fasting glucose Postsurgical hypothyroidism Benign essential hypertension COVID-19 vaccine administered Obesity Pericardial effusion Hypercholesterolemia History of thyroid cancer Vitamin D deficiency Patellar fracture Lumbar disc herniation History of renal calculi Hypothyroid Vertigo Migraine Asthma Surgical History S/P left knee arthroscopy S/P removal of left ovary Hx of arthroscopy of left knee Hx of tubal ligation History of pubovaginal sling Hx of cystoscopy History of ankle surgery History of cholecystectomy History of bladder surgery History of thyroid surgery History of back surgery History of section Family History Daughter Von Willebrand disease Other Asthma Diabetes Emphysema of lung Family history of bladder cancer Family history of breast cancer Family history of lung cancer Family history of prostate cancer Social History Household Members: Family and Children Housing: House Do you presently have visiting nurse or other home services: No Alcohol intake: never Comment: medicated, see MAR Patient Tobacco Use Status: Never used Tobacco e-Cigarette/Vaping Use: Never Used Second Hand Smoke Exposure: No service: No Current occupational status: employed 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 Cognitive needs: No Hearing needs: No Vision needs: No Female Reproductive History Menstrual Age of Menarche: 14 Behavioral Health Assessment Weight Management Therapy Therapy Notes Details Patient is doing well, discussed how to incorporate more exercise. Patient reported that she is looking to have weight loss surgery to help improve her health and quality of life. Pt is not in therapy and only was during her childhood. no hx of any mental health treatment or problems with drugs or alcohol. Pt denied ever having any eating disorder symptoms . Presenting Concerns Referral Source provider Reason for referral weight loss surgery evaluation Precipitating Event obesity Living Situation Current Living Situation Rent At risk of losing current housing? No Satisfied with current living situation? Yes Comments Lives with her two adult daughters in a duplex. Food/Weight/Diet Expectations of change weight loss and maintenance History/Relationship with food Pt stated that she would skip meals, no hunger ques, maybe one meal a day, not a big snacker or junk food eater. Meals would be rice, chicken, pork, ribs, drinking Pepsi daily, History/Relationship with weight Patient reported struggling with her weight since thyroid cancer . Prior to that she was 185lbs. Prior to having kids she was 115lbs. She stated that with the medications and previous control, she would gain easily. Currently at her heaviest. History/Relationship with dieting [facility] [place] 15lbs and then got sick with cancer. Has no done any specific dieting since then. Binge Eating Do you frequently eat large amounts of food in short periods of time, not feeling physically hungry? No Do you feel out of control when you eat a large amount of food in a short period of time? No Do you eat large amounts of food rapidly and typically alone? No Night Eating Do you wake up at least once during the night to eat? No If you wake up in the night, do you find that it is necessary to eat something in order to fall back asleep? No Do you have little or no appetite in the morning and feel very hungry in the evening, often overeating between dinner and when you go to bed? No Social History Family history and relationship Father lives in [place], not very close with anyone else. She has two daughters ages 20 and 21. Patient is for 4 years now. Parental/Familial substance abuse therapist obligations none Developmental history and status no issues Social support very minimal supports, could not name anyone except her father. Community support none Caodaism/Spirituality none Cultural/Ethnic information Legal Involvement and History Current or historical involvement with the legal system? none Education Highest grade completed GED and CIVIL MANAGER certificate Preferred learning style Auditory, Verbal, Written, Learn by doing and Visual Currently enrolled in educational program? No Interested in further educational program? 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 No Meaningful activities Currently out of work due to injury at work. (torn meniscus). out of work for two years, had surgery, however they did imaging afterwards and found that it was still torn Financial Situation Describe current financial situation Occasional struggle Financial assistance? None Service Service? No Mental Health and Addiction Treatment Current/Past substance abuse? No Current/Past addictive behavior concerns? No Medical and Physical Health Summary Physical exam in the last year? Yes Pain Screening Current pain? Yes Medications Is the patient compliant with medications? Yes Does the patient have Leos Guardian in place? Not applicable Does the patient use complimentary health approaches? No Trauma/Abuse History History of trauma? Yes Assessment & Plan Assessment & Plan (1) Vitamin D deficiency: Code(s): E55.9 - Vitamin D deficiency, unspecified (2) Obesity: Code(s): E66.9 - Obesity, unspecified (3) Unspecified nonpsychotic mental disorder: Code(s): F48.9 - Nonpsychotic mental disorder, unspecified Plan Patient is cleared for surgery when ready. She presents with no major mental health issues. Coding Level of Care Code Psytx 30 mins (14883) Diagnoses Vitamin D deficiency E55.9 Obesity E66.9 Unspecified nonpsychotic mental disorder F48.9 Time Spent (min) 35
== END 2023-09-26 11:37 | disposition home or self-care (01) ==
PROVIDERS: PCP Internal Medicine; Visit Provider Counselor Mental Health
DX: E55.9 Vitamin D deficiency, unspecified (principal); E66.9 Obesity, unspecified; F48.9 Nonpsychotic mental disorder, unspecified
CPT/HCPCS: 90832

== ENCOUNTER → 2023-09-26 10:13 | Outpatient (BNVA) | payer OTHER, SELFPAY | PROVIDERS: PCP Internal Medicine; Visit Provider Counselor Mental Health ==

== ENCOUNTER 2023-09-27 09:13 | Day surgery (SDC) | payer OTHER, SELFPAY ==
[2023-09-27 09:31] VITALS: BMI 41.4
[2023-09-27 09:50] VITALS: BP 140/75; PULSE 69; RESP 16; TEMP 36.2; O2SAT 97
[2023-09-27] MEDS: Lactated Ringers 1,000 ML 80 ML IVCONT (09:51)
--- NOTE | 2023-09-27 10:39 | P.HPSUR_ITS ---
Pre-Procedural Eval Section A - 24 Hr Update-Section A only Date of Service: 09/27/23 The patient is an INPATIENT: No The patient has been examined within 24 hours of the surgical procedure. The History & Physical has been completed within 30 days and I have reviewed it.: Yes Section B - Complete if H&P > 30 days Chief Complaint: Morbid (severe) obesity due to excess calories Details of Present Illness: GERD Relevant Family History (Specify if Yes): No Relevant Social History: None Present Medications: None Medical History: No relevant PMH History of Previous Operations: No relevant previous surgery Allergies: Allergies Allergy/AdvReac Type Severity Reaction Status Date / Time oxycodone [OXYCODONE] Allergy Intermediate RASH,SHAKES, Verified 09/27/23 09:51 shakiness, body shaking, tremors Review of Systems Sugical H&P ROS: Negative: Constitution, Cardiovascular, Respiratory, Neurological, Psychiatric, Hem-Onc, Allergic/Immunologic, Gastrointestinal, Ge nitourinary, Musculoskeletal, Integumentary, Endocrine and Eyes/Ears/Nose/Throat Exam Surgical H&P Exam: Normal: HEENT, Normal: Heart, Normal: Lungs, Normal: Extremities, Normal: Abdomen, Normal: Skin and Normal: Neurological Plan Diagnosis/Plan: Unchanged (EGD to assess etiology of GERD. Risks of bleeding and perforation were discussed with the patient and she is in agreement with the plan.) I have reviewed the history and physical and performed a pertinent physical examination on my patient. No changes have occurred unless specified. Time Spent With Patient Time: Total time managing care of this patient today ____ minutes.
--- NOTE | 2023-09-27 11:08 | P.CONAN_ITS ---
HPI - Anesthesia Eval Consult details Narrative: 48 yo female patient for EGD PMFSH Active Problems Active Problems: All Active Problems (Updated 09/27/23 @ 11:08 by Haylie Anthony MD) Left knee pain (Acute) Meniscus degeneration (Acute) Unspecified nonpsychotic mental disorder (Acute) Morbid obesity BMI 41.4 GERD (gastroesophageal reflux disease) (Acute) Asthma (Acute) Pre-op examination (Acute) Osteoarthritis of right patellofemoral joint (Acute) Hemorrhagic cyst of ovary (Acute) Dysphagia (Acute) Bile salt-induced diarrhea (Acute) Abnormal uterine bleeding (Acute) Fatty liver (Acute) Adenoma of right adrenal gland (Acute) Complex ovarian cyst (Acute) Hydronephrosis (Acute) Headache (Acute) Osteoarthritis of left knee (Acute) Migraine (Acute) Nephrolithiasis (Acute) Impaired fasting glucose (Acute) Postsurgical hypothyroidism (Acute) Benign essential hypertension (Acute) Obesity (Acute) Hypercholesterolemia (Acute) History of thyroid cancer (Acute) Vitamin D deficiency (Acute) Patient states had a problem during surgery for thyroid nodule/ lymph node in neck. States was told that they lost her on the table . Unclear what surgery, what kind of anesthesia, what kind of reaction. Patient states was never documented. Patient has had several procedures since then, including at [facility] [place]. No mention of any anesthetic problems or actual anesthetic problems. Old records including anesthetic records reviewed. No issiues. Will proceed. 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 Family history of von Willebrand disease Closed right ankle fracture Epidermal inclusion cyst Remove/insert IUD Kidney stone Ovarian cyst Ureteral stone Memory deficit Acute pain Pain management Knee swelling Knee injury Acute sinusitis Elevated LFTs Impaired fasting glucose Postsurgical hypothyroidism Benign essential hypertension COVID-19 vaccine administered Obesity Pericardial effusion Hypercholesterolemia History of thyroid cancer Vitamin D deficiency Patellar fracture Lumbar disc herniation History of renal calculi Hypothyroid Vertigo Migraine Asthma Family History Family History Daughter Von Willebrand disease Other Asthma Diabetes Emphysema of lung Family history of bladder cancer Family history of breast cancer Family history of lung cancer Family history of prostate cancer Family history of problems with anesthesia: No Surgical History Surgical History S/P left knee arthroscopy S/P removal of left ovary Hx of arthroscopy of left knee Hx of tubal ligation History of pubovaginal sling Hx of cystoscopy History of ankle surgery History of cholecystectomy History of bladder surgery History of thyroid surgery History of back surgery History of section History of Problems with Anesthesia: No Social History Social History Household Members: Family and Children Housing: House Do you presently have visiting nurse or other home services: No Alcohol intake: never Comment: medicated, see MAR Patient Tobacco Use Status: Never used Tobacco e-Cigarette/Vaping Use: Never Used Second Hand Smoke Exposure: No Use of substances other than those prescribed or required for medical reasons: No Are you DNR?: No Advance Directives: No Advance Directives Information Provided: Yes service: No Current occupational status: employed 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 Cognitive needs: No Hearing needs: No Vision needs: No Meds Allergies Allergy/AdvReac Type Severity Reaction Status Date / Time oxycodone [OXYCODONE] Allergy Intermediate RASH,SHAKES, Verified 09/27/23 09:51 shakiness, body shaking, tremors Active Medications: Current Medications Lactated Ringer's (Lr) 1,000 mls @ 80 mls/hr IVCONT .[id number] LUZ MARIA Last Admin: 09/27/23 09:51 Dose: 80 mls/hr Home Medications ?Medication ?Instructions ?Recorded ?Confirmed ?Last Taken ?Type levonorgestrel 21 mcg/24 hr (up to intrauterine 11/03/22 08/15/23 Unknown History 8 years) 52 mg intrauterine device (Mirena) levothyroxine 300 mcg tablet 300 mcg PO DAILY 07/29/23 09/27/23 09/26/23 History polyethylene glycol 3350 17 g PO 07/29/23 08/15/23 Unknown History gram/dose oral powder (Gavilax) Exam Height,Weight and Vital Signs: Height 5 ft 1 in Weight 99.337 kg Last Vital Signs Temp 97.2 F 09/27/23 09:50 Pulse 69 09/27/23 09:50 Resp 16 09/27/23 09:50 BP 140/75 H 09/27/23 09:50 Pulse Ox 97 09/27/23 09:50 O2 Del Method Room Air 09/27/23 09:50 Airway Mallampati Class: III TM Dist: >3cm Denture: Upper and Lower Heart: RRR Lungs: CTAB Assessment and Plan Assessment Anesthesia Assessment: Anesthesia Plan Discussed and Chart Reviewed Final Anesthetic Review Family History of Problems with Anesthesia: No History of Problems with Anesthesia: No NPO: Yes ASA Class: III Final Preanesthetic Review: No Changes in Pt Med Stat, Meds/Allgs Chart Reviewed, Consent Obtained/Reviewed and Anes Risks/Benef Reviewed Patient Risk: Intermediate Procedure Risk: Low Assessment/Block/Sedation in SS: Assess/Block/Sedation-SS Anesthetic Plan Anesthetic Plan: GA and TIVA Disposition: Standard PACU
--- NOTE | 2023-09-27 11:11 | PM.OP ---
Brief Operative Note Date of Service: 09/27/23 Pre-op diagnosis: GERD Post-op diagnosis: same Procedure: PROCEDURE DATE: 09/27/2023 PREOPERATIVE DIAGNOSIS: GERD POSTOPERATIVE DIAGNOSIS: ?Same as above. 1) distal gastritis PROCEDURE: [id number] with biopsies Surgeon: ?Daniel Malagon M.D.. Ph.D. Warranty Coordinator: None ? Anesthesia: IV sedation Estimated blood loss: ?Minimal FINDINGS AND PROCEDURE: ? OPERATIVE INDICATIONS: ?The patient is a 48 year old female known to me who is interested in bariatric surgery. The patient has GERD. Based on this information I recommended an upper endoscopy to evaluate the patient's symptoms. Risks and complications of the surgery were discussed with the patient in advance particularly the possibility of perforation or bleeding that may require surgical intervention. The patient understood the risks and was in agreement with the plan. ? PROCEDURE: After informed consent was obtained by the patient, the patient was ?transferred to the Operating Room and was placed in the supine position.? After successful induction of IV sedation, a mouth block was inserted and the patient was placed in the left lateral decubitus position. An upper endoscopy was performed next, the oropharynx and esophagus appeared within the normal limits. There was no hiatal hernia. The z-line was smooth. Two biopsies were obtained from the distal esophagus 2-3 cm proximal to the GE junction and two additional biopsies from the GE junction. The stomach was entered and it appeared to be of normal size. There was mild gastritis at distal antrum. There was no stricture or ulcer. A biopsy was obtained from the gastric fundus and the antrum. No significant bleeding was noted from any of the biopsy sites. Retroflexion of the scope revealed a normal GE junction anatomy. The scope was then advanced into the duodenum up to the 4th portion which appeared to be normal as well. At that point the duodenum ?and the stomach were decompressed and the scope was withdrawn from the patient's mouth. The patient extubated and was transferred in stable condition to the Recovery Room for further care. I was present and performed all steps of the procedure. There were no residents to assist with this case. Daniel Malagon M.D., Ph.D. Surgeon: Wan Malagon MD Anesthesia: MAC Was an Warranty Coordinator used for this Procedure?: No Estimated blood loss (mL): 0 IV fluids (mL): 400 Urine output (mL): 0 (No Segura to record output) Pathology: other (1) antrum x1, 2) fundus x1, 3) GE junction x2, 4) distal esophagus x2) Condition: stable Disposition: PACU
[2023-09-27 11:51] VITALS: BP 127/78; PULSE 77; RESP 16; TEMP 36.6; O2SAT 97
[2023-09-27 12:06] VITALS: BP 121/68; PULSE 77; RESP 18; TEMP 36.1; O2SAT 99
== END 2023-09-27 13:01 | disposition home or self-care (01) ==
PROVIDERS: PCP Internal Medicine; Visit Provider Surgery
PROC: 0DJ08ZZ Inspection of Upper Intestinal Tract, Via Natural or Artificial Opening Endoscopic (ICD-10-PCS; CPT 43235; principal; 2023-09-27 11:30)
DX: K21.9 Gastro-esophageal reflux disease without esophagitis (principal); K29.50 Unspecified chronic gastritis without bleeding; E66.01 Morbid (severe) obesity due to excess calories; Z68.41 Body mass index [BMI] 40.0-44.9, adult; I10 Essential (primary) hypertension; R74.8 Abnormal levels of other serum enzymes; J45.31 Mild persistent asthma with (acute) exacerbation; R73.01 Impaired fasting glucose; E78.00 Pure hypercholesterolemia, unspecified; E89.0 Postprocedural hypothyroidism; Z85.850 Personal history of malignant neoplasm of thyroid; G43.909 Migraine, unspecified, not intractable, without status migrainosus; Z79.899 Other long term (current) drug therapy; Z88.5 Allergy status to narcotic agent; Z87.442 Personal history of urinary calculi; Z90.49 Acquired absence of other specified parts of digestive tract; Z98.890 Other specified postprocedural states
CPT/HCPCS: 43239; 88305; 88313; 88342; J1596; J2250; J2704

== ENCOUNTER → 2023-09-27 09:13 | Outpatient (BNV) | payer OTHER, SELFPAY | PROVIDERS: PCP Internal Medicine; Visit Provider Surgery | DX: K21.9 Gastro-esophageal reflux disease without esophagitis (principal) | CPT/HCPCS: 43239 ==

== ENCOUNTER 2023-09-30 10:59 | Outpatient (AMB) | payer OTHER, SELFPAY ==
[2023-09-30 11:00] VITALS: BP 136/88; PULSE 76; O2SAT 99; BMI 41.8
--- NOTE | 2023-09-30 11:00 | MHC.PC.OV ---
Vital Signs 09/30/23 11:00 Height 5 ft 1 in Weight 221 lb 4 oz BMI 41.8 BP 136/88 Blood Pressure Location Lt brachial Position Sitting Pulse 76 Pulse Source Pulse Oximeter Pulse Oximetry (%) 99 Oxygen Delivery Method Room Air Intake Visit Reasons: Annual Exam- NEEDS PHQ9 Supervisor Facepiece Line Required: No Accompanied by: Self / Same As Patient Allergies oxycodone [OXYCODONE] Allergy (Intermediate, Verified 09/30/23 11:10) RASH,SHAKES, shakiness, body shaking, tremors Medication List - Last Reconciled 09/30/23 by Tamela Pelaez MD albuterol sulfate 90 mcg/actuation (ProAir HFA) 2 puffs inhalation Q6H PRN 30 days amlodipine 5 mg PO DAILY blood pressure monitor As directed cholecalciferol (vitamin D3) 25 mcg PO DAILY cholestyramine-aspartame 4 gram (Prevalite) 4 grams PO BID diclofenac sodium 1% (Voltaren Arthritis Pain) 4 grams topical QID gabapentin 100 mg PO TID Lactobacillus rhamnosus GG (Culturelle) 1 cap PO DAILY levonorgestrel (Mirena) intrauterine levothyroxine 300 mcg PO DAILY lisinopril 40 mg PO DAILY 30 days meclizine 25 mg PO TID PRN omeprazole 20 mg PO QAM ondansetron 4 mg PO Q6-8H PRN polyethylene glycol 3350 (Gavilax) grams PO pyridoxine (vitamin B6) 50 mg PO DAILY 90 days rizatriptan 10 mg PO .QD PRN sodium,potassium,mag sulfates 17.5-3.13-1.6 gram (Suprep Bowel Prep Kit) 480 mL orally; FOR COLONOSCOPY PREP tramadol 50 mg PO Q8H PRN Tobacco use date assessed: 06/13/23 Dental Screening Dental Screen Date: 06/13/23 HPI Annual Exam- NEEDS PHQ9 HPI Details 48-year-old morbidly obese female with a history of hypertension postsurgical hypothyroidism from thyroid cancer history of right ankle fracture last seen in 06/15/2023 patient is here for physical exam. Review of the notes mammogram done 06/15/2023 advised to follow-up 6 months. Pap smear is up-to-date. Patient had the EGD done under the bariatric surgeon 09/2023 showing mild chronic inactive gastritis negative for H pylori consistent with esophagitis patient also has gone with pain management for the left knee has had PRP injection with intrameniscal infiltration. Patient also follows up with urology for the nephrolithiasis on vitamin B6. Patient is asking for TB test, Tdap but this has been given in 2017 and flu shots are given in the full-time. 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 Family history of von Willebrand disease Closed right ankle fracture Epidermal inclusion cyst Remove/insert IUD Kidney stone Ovarian cyst Ureteral stone Memory deficit Acute pain Pain management Knee swelling Knee injury Acute sinusitis Elevated LFTs Impaired fasting glucose Postsurgical hypothyroidism Benign essential hypertension COVID-19 vaccine administered Obesity Pericardial effusion Hypercholesterolemia History of thyroid cancer Vitamin D deficiency Patellar fracture Lumbar disc herniation History of renal calculi Hypothyroid Vertigo Migraine Asthma Surgical History S/P left knee arthroscopy S/P removal of left ovary Hx of arthroscopy of left knee Hx of tubal ligation History of pubovaginal sling Hx of cystoscopy History of ankle surgery History of cholecystectomy History of bladder surgery History of thyroid surgery History of back surgery History of section Family History (Updated 09/30/23 @ 11:35 by Tamela Pelaez MD) Daughter Von Willebrand disease Maternal Grandmother Family history of bladder cancer Family history of breast cancer Sister Family history of breast cancer Maternal Grandfather Family history of lung cancer Other Asthma Diabetes Emphysema of lung Social History Household Members: Family and Children Housing: House Do you presently have visiting nurse or other home services: No Alcohol intake: never Comment: medicated, see MAR Patient Tobacco Use Status: Never used Tobacco e-Cigarette/Vaping Use: Never Used Second Hand Smoke Exposure: No service: No Current occupational status: employed 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 Cognitive needs: No Hearing needs: No Vision needs: No Female Reproductive History Menstrual Age of Menarche: 14 Questionnaire PHQ-9 Over the last 2 weeks, how often have you been bothered by any of the following problems? 1. Little interest or pleasure in doing things: not at all 2. Feeling down, depressed, or hopeless: not at all 3. Trouble falling or staying asleep, or sleeping too much: not at all 4. Feeling tired or having little energy: not at all 5. Poor appetite or overeating: not at all 6. Feeling bad about yourself - or that you are a failure or have let yourself or your family down: not at all 7. Trouble concentrating on things, such as reading the newspaper or watching television: not at all 8. Moving or speaking so slowly that other people could have noticed. Or the opposite - being so fidgety or restless that you have been moving around a lot more than usual: not at all 9. Thoughts that you would be better off or of hurting yourself in some way: not at all Total score: 0 Depression Screening Interpretation: Negative Depression Screening Done: Yes Source: Developed by Drs. Juan Vega, Tatiana Dumas, Nikolay Ling and colleagues, with an educational gia from [employer]. Thrive Questionnaire Date Thrive assessed: 06/13/23 ACACIA-7 AMB Questionnaire ACACIA-7 Date ACACIA - 7 assessed: 06/13/23 Source: Developed by Drs. Juan Vega, Tatiana Dumas, Nikolay Ling and colleagues, with an educational gia from [employer]. Review of Systems Const Denies poor appetite and Denies weakness Eyes Denies no additional complaints ENT Reports Normal hearing present, Denies dizziness, Denies nasal congestion, Denies tinnitus and Denies sore throat Card Denies chest pain, Denies syncope, Denies rapid heart rate and Denies dyspnea Resp Denies cough and Denies dyspnea GI Denies change in stool character, Reports constipation, Denies diarrhea, Denies nausea and Denies vomiting Denies urinary frequency, Denies difficulty voiding and Denies dysuria Neuro Reports Normal hearing present, Denies confusion, Denies dizziness, Denies syncope and Denies weakness Psych Denies confusion Physical exam (Primary Care) Vital Signs: Last Vital Signs Pulse 76 09/30/23 11:00 BP 136/88 09/30/23 11:00 Pulse Ox 99 09/30/23 11:00 Oxygen Delivery Method Room Air 09/30/23 11:00 BMI result Body Mass Index 41.8 Tobacco/Smoking Status: Tobacco use Status Tobacco use date assessed 06/13/23 09/30/23 11:01 Patient Tobacco Use Status Never used Tobacco 09/30/23 11:01 e-Cigarette/Vaping Use Never Used 09/30/23 11:01 PHQ-9: PHQ-9 Score PHQ-9: Total score 0 09/30/23 11:30 Depression Screening Interpretation: Negative Thrive Assessment: Date of Thrive Assessment Date Thrive assessed 06/13/23 09/30/23 11:01 Const General: No confusion Orientation/consciousness: No confusion HENMT Head: Yes normocephalic Ears: external ears normal and TM's normal bilaterally Face and sinus: Yes normal facial exam Mouth: moist mucous membranes Throat: Yes tonsils normal Eyes Conjunctivae: conjunctivae normal Pupils: Equal, round and reactive pupils present and Pupil accommodation reflex normal Direct Ophthalmoscopy: normal light reflex Neck Neck: No lymphadenopathy Thyroid: Thyroid normal Chest Chest palpation & inspection: normal inspection of the chest Resp Effort & Inspection: normal respiratory effort and no audible wheezes Auscultation: clear to auscultation bilaterally, no crackles, no wheezes and lung sounds not diminished Cardio Rate: regular rate Rhythm: regular rhythm Peripheral pulses: radial pulses present and dorsalis pedis present GI Palpation (GI): no masses Auscultation: normal bowel sounds and normoactive bowel sounds Rectal Exam - Female: deferred Skin General skin exam: no rashes or lesions noted Rashes: no rashes Neuro General: No confusion Cranial nerves: Yes Equal, round and reactive pupils present and Yes Normal hearing present Cognition (Neuro): normal cognition Gait exam (Neuro): Normal gait present Motor exam (neuro): 5/5 motor strength present throughout Deep tendon reflexes (DTR's): Right brachioradialis reflex intensity grade: 2+, Left brachioradialis reflex intensity grade: 2+, Right patellar reflex intensity grade: 2+ and Left patellar reflex intensity grade: 2+ Extrem General: No edema Office Meds tuberculin PPD 5 tub. unit/0.1 mL intradermal injection solution Performing Provider: Tamela Pelaez MD Performing Location: [facility] Administered by: Brooke Stock RN on 09/30/23 12:01 Dose Route Admin Location Dispensed Lot Number Expiration Date NDC Varitype Operator 0.1 mL intradermal 0.1 mL [id number] 07/25/26 57684-689-23 [facility] Assessment and Plan Assessment & Plan (1) Annual physical exam: Code(s): Z00.00 - Encounter for general adult medical examination without abnormal findings Plan: Patient is advised to eat healthy, keep well hydrated, keep active and have adequate sleep. (2) Left knee pain: Code(s): M25.562 - Pain in left knee Qualifiers: Chronicity: chronic Qualified Code(s): M25.562 - Pain in left knee; G89.29 - Other chronic pain Plan: Patient follows up with pain management and has had PRP injections (3) Morbid obesity: Code(s): E66.01 - Morbid (severe) obesity due to excess calories Plan: Continue with diet and exercise continue with follow-up with weight management. (4) GERD (gastroesophageal reflux disease): Code(s): K21.9 - Gastro-esophageal reflux disease without esophagitis Plan: Avoid the foods that causes that usually spicy foods, tomato products, juices, coffee, soda and foods that your sensitive to. After eating do not lie down, allow 3-4 hours before in lie down. And keep the head of bed above 30 degrees to avoid the acid from going up. Status post EGD under bariatric surgeon. (5) Asthma: Code(s): J45.909 - Unspecified asthma, uncomplicated Qualifiers: Asthma complication type: with acute exacerbation Asthma persistence: persistent Asthma severity: mild Qualified Code(s): J45.31 - Mild persistent asthma with (acute) exacerbation Plan: Continue with inhalers albuterol (6) Postsurgical hypothyroidism: Comment: S/P thyroidectomy by Dr. Dalton in 2005 Code(s): E89.0 - Postprocedural hypothyroidism Plan: Continue with thyroid medication (7) Benign essential hypertension: Code(s): I10 - Essential (primary) hypertension Plan: Continue with blood pressure medication. Decrease salt intake and exercise on lisinopril 40 mg once a day amlodipine 5 mg once a day (8) History of thyroid cancer: Comment: Dr. Arash Stanton GEn Code(s): Z85.850 - Personal history of malignant neoplasm of thyroid Plan: Continue to be monitored by endo (9) Hypercholesterolemia: Code(s): E78.00 - Pure hypercholesterolemia, unspecified Plan: Avoid fried foods, chicken skin, eggs, butter margarine, pastries and meat. Be it pork or beef they have a lot of cholesterol LDL goal of less than 130 and triglyceride of less than 150 Orders: Orders AMB PPD Planted Today Z11.1 - Encounter for screening for respiratory tuberculosis Referrals General Surgery Referral R22.2 - Localized swelling, mass and lump, trunk Medications: New tuberculin PPD 0.1 mL intradermal ONCE 0.1 mL 0RF Z11.1 - Encounter for screening for respiratory tuberculosis Coding Level of Care Code Est Pt Prev Care 40-64y(80823) Diagnoses Annual physical exam Z00.00 Chronic pain of left knee M25.562; G89.29 Chronicity: chronic Morbid obesity E66.01 GERD (gastroesophageal reflux disease) K21.9 Asthma, unspecified asthma severity, unspecified whether complicated, unspecified whether persistent J45.31 Asthma complication type: with acute exacerbation Asthma persistence: persistent Asthma severity: mild Postsurgical hypothyroidism E89.0 Benign essential hypertension I10 History of thyroid cancer Z85.850 Hypercholesterolemia E78.00
== END 2023-09-30 12:02 | disposition home or self-care (01) ==
PROVIDERS: PCP Internal Medicine; Visit Provider Internal Medicine
DX: Z00.00 Encounter for general adult medical examination without abnormal findings (principal); M25.562 Pain in left knee; J45.31 Mild persistent asthma with (acute) exacerbation; E89.0 Postprocedural hypothyroidism; Z11.1 Encounter for screening for respiratory tuberculosis
CPT/HCPCS: 86580; 99396

== ENCOUNTER 2023-10-10 22:51 | Emergency (ER) | payer OTHER, SELFPAY ==
[2023-10-10 23:30] VITALS: BP 148/83; PULSE 71; RESP 20; TEMP 36.8; O2SAT 98; BMI 41.5
[2023-10-10 23:58] LABS: MANUAL DIFF FLAG NO
[2023-10-11 00:02] LABS: Basophils Absolute Auto 0.1 X10*3/uL (0.0-0.2); Basophils Percent Auto 0.5 % (0-2); Eosinophils Absolute Auto 0.1 X10*3/uL (0.0-0.4); Eosinophils Percent Auto 1.4 % (0-4); Hematocrit 37.3 % (37.0-47.0); Hemoglobin 13.1 g/dl (12.0-16.0); Imm Gran Abs Auto 0.06 X10*3/uL (0.00-0.03); Imm Gran Pct Auto 0.6 % (0.0-0.4); Lymphocytes Absolute Auto 3.4 X10*3/uL (1.2-4.9); Lymphocytes Percent Auto 33.1 % (20-40); Mean Corpuscular HGB Conc 35.1 g/dl (31.0-35.0); Mean Corpuscular Hemoglobin 30.9 pg (27.0-33.0); Mean Platelet Volume 9.7 fL (9.4-12.3); Monocytes Absolute Auto 0.8 X10*3/uL (0.1-1.2); Monocytes Percent Auto 7.8 % (2-11); Neutrophils Absolute Auto 5.8 x10*3/uL (2.0-8.3); Neutrophils Percent Auto 56.6 % (45-73); Platelet Count 319 X10*3/uL (160-400); Red Blood Count 4.24 X10*6/uL (4.20-5.50); Red Cell Distribution Width 12.5 % (11.0-16.0); White Blood Count 10.2 X10*3/uL (4.8-10.8)
[2023-10-11 00:03] LABS: Appearance Urine Clear; Color Urine Yellow; Glucose Urine UA Negative (Negative); Leukocyte Esterase Urine Negative (Negative); Nitrite Urine Negative (Negative); Specific Gravity - Urine 1.015 (1.005-1.025); UMIC TRIGGER UACC YES; Urine Blood Moderate (2+) (Negative); Urine Ketones Negative (Negative); Urine Protein Negative (Neg-Trace)
[2023-10-11 00:05] LABS: Bacteria Urine None Seen (None Seen); Hyaline Casts Urine 0-2 /LPF (0-2); Squamous Epithelial Cell Urine 0-2 /HPF (0-2); WBC Urine 0-5 /HPF (0-5)
[2023-10-11 00:22] LABS: Alanine Aminotransferase 17 U/L (0-31); Albumin Level 4.2 g/dL (3.5-5.0); Alkaline Phosphatase 74 U/L (39-117); Anion Gap 13 (12-20); Aspartate Amino Transferase 16 U/L (5-31); Bilirubin Total 0.4 mg/dL (0.0-1.0); Blood Urea Nitrogen 18 mg/dL (9-16); Calcium 9.3 mg/dL (8.4-10.2); Carbon Dioxide 22 mmol/L (22-29); Chloride 107 mmol/L (96-108); Creatinine Clr Calc Pharmacy 138.3; Estimated Glomerular Filt Rate > 60; Glucose Random 102 mg/dL (60-115); Potassium 3.3 mmol/L (3.3-5.1); Sodium 139 mmol/L (135-145)
[2023-10-11 00:57] LABS: UPreg QC Valid YES; Urine Pregnancy NEGATIVE (NEGATIVE)
[2023-10-11] MEDS: Ibuprofen 600 MG TABLET PO (01:19)
[2023-10-11 01:23] VITALS: BP 113/63; PULSE 73; RESP 19; TEMP 36.7; O2SAT 96
--- NOTE | 2023-10-11 01:23 | ED.FEMALEGU ---
HPI - Female Genitourinary General Chief complaint: Vaginal Bleeding Stated complaint: abdominal pain Time Seen by Provider: 10/11/23 00:41 Source: patient Mode of arrival: ambulatory Limitations: no limitations History of Present Illness ED Provider: dorothy BELCHER Narrative: Patient's history of right ovarian cyst with history of left oophorectomy has IUD in place complaining of pain in lower pelvic area with vaginal bleed for last 2 days bleeding started after having intercourse yesterday no fever no chills no urinary complaints Related Data Home Medications ?Medication ?Instructions ?Recorded ?Confirmed levonorgestrel 21 mcg/24 hr (up to intrauterine 11/03/22 09/30/23 8 years) 52 mg intrauterine device (Mirena) levothyroxine 300 mcg tablet 300 mcg PO DAILY 07/29/23 09/30/23 polyethylene glycol 3350 17 g PO 07/29/23 09/30/23 gram/dose oral powder (Gavilax) Previous Rx's ?Medication ?Instructions ?Recorded blood pressure monitor #1 ea 03/05/21 Lactobacillus rhamnosus GG 10 1 cap PO DAILY #20 caps 03/31/23 billion cell capsule (Culturelle) diclofenac sodium 1 % topical gel 4 g topical QID #100 grams 04/03/23 (Voltaren Arthritis Pain) rizatriptan 10 mg tablet 10 mg PO .QD PRN migraine headache 04/04/23 #14 tabs lisinopril 40 mg tablet 40 mg PO DAILY 30 days #90 tabs 05/06/23 cholecalciferol (vitamin D3) 25 25 mcg PO DAILY #90 caps 05/11/23 mcg (1,000 unit) capsule meclizine 25 mg tablet 25 mg PO TID PRN for dizziness #90 06/15/23 tabs sodium,potassium,mag sulfates 17.5 480 ml PO .COMPLEX #354 mL 06/30/23 gram-3.13 gram-1.6 gram oral soln (Suprep Bowel Prep Kit) gabapentin 100 mg capsule 100 mg PO TID #90 caps 07/07/23 ondansetron 4 mg disintegrating 4 mg PO Q6-8H PRN nausea and 07/17/23 tablet vomiting #10 tabs pyridoxine (vitamin B6) 50 mg 50 mg PO DAILY 90 days #90 tabs 08/04/23 tablet albuterol sulfate 90 mcg/actuation 2 puff inhalation Q6H PRN 08/05/23 aerosol inhaler (ProAir HFA) shortness of breath or wheezing 30 days #8.5 grams cholestyramine-aspartame 4 gram 4 g PO BID #231 grams 08/13/23 oral powder (Prevalite) tramadol 50 mg tablet 50 mg PO Q8H PRN pain #21 tabs 09/22/23 amlodipine 5 mg tablet 5 mg PO DAILY #90 tabs 09/23/23 omeprazole 20 mg capsule,delayed 20 mg PO QAM #90 caps 09/26/23 release ibuprofen 600 mg tablet 600 mg PO Q6H PRN fever or pain 10/11/23 #30 tabs Allergies Allergy/AdvReac Type Severity Reaction Status Date / Time oxycodone [OXYCODONE] Allergy Intermediate RASH,SHAKES, Verified 10/10/23 23:32 shakiness, body shaking, tremors Review of Systems Review of Systems: Yes all other systems are reviewed and are negative PMFSH 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 Family history of von Willebrand disease Closed right ankle fracture Epidermal inclusion cyst Remove/insert IUD Kidney stone Ovarian cyst Ureteral stone Memory deficit Acute pain Pain management Knee swelling Knee injury Acute sinusitis Elevated LFTs Impaired fasting glucose Postsurgical hypothyroidism Benign essential hypertension COVID-19 vaccine administered Obesity Pericardial effusion Hypercholesterolemia History of thyroid cancer Vitamin D deficiency Patellar fracture Lumbar disc herniation History of renal calculi Hypothyroid Vertigo Migraine Asthma Surgical History S/P left knee arthroscopy S/P removal of left ovary Hx of arthroscopy of left knee Hx of tubal ligation History of pubovaginal sling Hx of cystoscopy History of ankle surgery History of cholecystectomy History of bladder surgery History of thyroid surgery History of back surgery History of section Family History Family History (Updated 09/30/23 @ 11:35 by Tamela Pelaez MD) Daughter Von Willebrand disease Maternal Grandmother Family history of bladder cancer Family history of breast cancer Sister Family history of breast cancer Maternal Grandfather Family history of lung cancer Other Asthma Diabetes Emphysema of lung Social History Social History Household Members: Family and Children Housing: House Do you presently have visiting nurse or other home services: No Alcohol intake: never Comment: medicated, see MAR Patient Tobacco Use Status: Never used Tobacco Smoked in Last 30 Days: No e-Cigarette/Vaping Use: Never Used Second Hand Smoke Exposure: No Use of substances other than those prescribed or required for medical reasons: No Advance Directives: No Advance Directives Information Provided: Yes Patient : No service: No Current occupational status: employed 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 Cognitive needs: No Hearing needs: No Vision needs: No Physical Exam Vital Signs: Vital Signs: Last Vital Signs Temp 98.0 F 10/11/23 01:41 Pulse 69 10/11/23 01:41 Resp 17 10/11/23 01:41 BP 113/63 10/11/23 01:41 Pulse Ox 96 10/11/23 01:41 O2 Del Method Room Air 10/11/23 01:41 BMI result Body Mass Index 41.5 Appearance: Alert. Oriented X3. No acute distress. Eyes: PERRLA, No Nystagmus ENT: Pharynx normal. Oral Mucosa moist Neck: Normal inspection. Neck supple. CVS: Normal heart rate and rhythm. Pulses normal. Respiratory: No respiratory distress. Equal air entry bilateral, no wheezing/rales/rhonchi Abdomen: Soft and mild diffuse tenderness suprapubic area. Bowel sounds are present, no mass palpable, no CVA tenderness Skin: Skin warm and dry. Normal skin color. Normal skin turgor. Extremities: No lower extremity edema. No calf tenderness Neuro: Oriented X 3. Medications Administered Discontinued Medications Generic Name Dose Route Start Last Admin Trade Name Freq PRN Reason Stop Dose Admin Ibuprofen 600 mg 10/11/23 01:14 10/11/23 01:19 Ibuprofen 600 Mg Tablet PO 10/11/23 01:15 600 mg ONCE ONE Administration Medical Decision Making Medical Decision Making MDM Narrative: Patient has dysfunctional bleed with minor suprapubic discomfort after goes patient advised to follow with implementation consultant unlikely ovarian cyst as it diffuse pain Differential Diagnosis Differential Diagnoses: The differential diagnosis associated with the presentation includes Lab Data MDM Lab Attestation statement: I reviewed the patient's lab results. 10/10/23 23:54 10/10/23 23:54 Labs: Lab Results 10/10/23 Range/Units 23:54 WBC 10.2 (4.8-10.8) X10*3/uL RBC 4.24 (4.20-5.50) X10*6/uL Hgb 13.1 (12.0-16.0) g/dl Hct 37.3 (37.0-47.0) % MCV 88.0 (80.0-98.0) fL MCH 30.9 (27.0-33.0) pg MCHC 35.1 H (31.0-35.0) g/dl RDW 12.5 (11.0-16.0) % Plt Count 319 (160-400) X10*3/uL MPV 9.7 (9.4-12.3) fL Immature Gran % (Auto) 0.6 H (0.0-0.4) % Neut % (Auto) 56.6 (45-73) % Lymph % (Auto) 33.1 (20-40) % [place] % (Auto) 7.8 (2-11) % Eos % (Auto) 1.4 (0-4) % Baso % (Auto) 0.5 (0-2) % Lymph # (Auto) 3.4 (1.2-4.9) X10*3/uL [place] # (Auto) 0.8 (0.1-1.2) X10*3/uL Eos # (Auto) 0.1 (0.0-0.4) X10*3/uL Baso # (Auto) 0.1 (0.0-0.2) X10*3/uL Abs Immat Gran (auto) 0.06 H (0.00-0.03) X10*3/uL Absolute Neuts (auto) 5.8 (2.0-8.3) x10*3/uL Absolute Nucleated RBC 0.000 (0.0-0.012) X10*3/uL Nucleated RBC % (auto) 0.0 (0.0-0.2) /100WBC Sodium 139 (135-145) mmol/L Potassium 3.3 (3.3-5.1) mmol/L Chloride 107 (96-108) mmol/L Carbon Dioxide 22 (22-29) mmol/L Anion Gap 13 (12-20) BUN 18 H (9-16) mg/dL Creatinine 0.55 (0.5-1.4) mg/dL Estim Creat Clear Calc 138.3 Estimated GFR > 60 Random Glucose 102 (60-115) mg/dL Calcium 9.3 D (8.4-10.2) mg/dL Total Bilirubin 0.4 (0.0-1.0) mg/dL AST 16 (5-31) U/L ALT 17 (0-31) U/L Alkaline Phosphatase 74 (39-117) U/L Total Protein 7.0 (6.5-8.0) g/dL Albumin 4.2 (3.5-5.0) g/dL Urine Color Yellow Urine Appearance Clear Urine pH 6.0 (5.0-9.0) Ur Specific [place] 1.015 (1.005-1.025) Urine Protein Negative (Neg-Trace) mg/dL Urine Glucose (UA) Negative (Negative) mg/dL Urine Ketones Negative (Negative) mg/dL Urine Blood Moderate (2+) H (Negative) Urine Nitrite Negative (Negative) Ur Leukocyte Esterase Negative (Negative) Urine RBC 11-20 H (0-2) /HPF Urine WBC 0-5 (0-5) /HPF Ur Squamous Epith Cells 0-2 (0-2) /HPF Urine Bacteria None Seen (None Seen) Hyaline Casts 0-2 (0-2) /LPF Urine Test NEGATIVE (NEGATIVE) Discharge Plan Discharge Clinical Impression: Dysfunctional uterine bleeding Patient Disposition: Home, Self-Care Instructions: Dysfunctional Uterine Bleeding (ED) Additional Instructions: Take ibuprofen for pain Follow up with your mens locker room attendant Prescriptions: New ibuprofen 600 mg tablet 600 mg PO Q6H PRN (Reason: fever or pain) Qty: 30 0RF No Action diclofenac sodium [Voltaren Arthritis Pain] 1 % gel 4 g topical QID Qty: 100 1RF Rx Instructions: apply to single knee, ankle, foot; for foot includes sole/toes/top of foot rizatriptan 10 mg tablet 10 mg PO .QD PRN (Reason: migraine headache) Qty: 14 12RF Rx Instructions: do not exceed 3 doses per 24 hrs lisinopril 40 mg tablet 40 mg PO DAILY 30 Days Qty: 90 3RF cholecalciferol (vitamin D3) 25 mcg (1,000 unit) capsule 25 mcg PO DAILY Qty: 90 2RF meclizine 25 mg tablet 25 mg PO TID PRN (Reason: for dizziness) Qty: 90 1RF pyridoxine (vitamin B6) 50 mg tablet 50 mg PO DAILY 90 Days Qty: 90 1RF albuterol sulfate [ProAir HFA] 90 mcg/actuation HFA aerosol inhaler 2 puff inhalation Q6H PRN (Reason: shortness of breath or wheezing) 30 Days Qty: 8.5 3RF Prevalite 4 gram powder 4 g PO BID Qty: 231 1RF Rx Instructions: administer w/meal; avoid other meds within 1hr before or 4-6hr after dose amlodipine 5 mg tablet 5 mg PO DAILY Qty: 90 0RF omeprazole 20 mg capsule,delayed release(DR/EC) 20 mg PO QAM Qty: 90 1RF ondansetron 4 mg tablet,disintegrating 4 mg PO Q6-8H PRN (Reason: nausea and vomiting) Qty: 10 0RF (DME) blood pressure monitor Kit See Rx Instructions .ROUTE .MEDSUPPLY Qty: 1 0RF Rx Instructions: As directed Culturelle 10 billion cell capsule 1 cap PO DAILY Qty: 20 0RF levothyroxine 300 mcg tablet 300 mcg PO DAILY polyethylene glycol 3350 [Gavilax] 17 gram/dose powder PO Mirena 21 mcg/24 hours (8 yrs) 52 mg intrauterine device intrauterine sodium,potassium,mag sulfates [Suprep Bowel Prep Kit] 17.5-3.13-1.6 gram recon soln 480 ml PO .COMPLEX Qty: 354 0RF Rx Instructions: 480 mL orally; FOR COLONOSCOPY PREP gabapentin 100 mg capsule 100 mg PO TID Qty: 90 0RF tramadol 50 mg tablet 50 mg PO Q8H PRN (Reason: pain) Qty: 21 0RF Interventions: ED Discharge Assessment Last Done: 10/11/23 01:41 Discharge Date/Time: 10/11/23 01:42 Print Language: Syriac
[2023-10-11 01:41] VITALS: BP 113/63; PULSE 69; RESP 17; TEMP 36.7; O2SAT 96
== END 2023-10-11 01:42 | disposition home or self-care (01) ==
PROVIDERS: Emergency Provider Internal Medicine; PCP Internal Medicine
DX: N93.8 Other specified abnormal uterine and vaginal bleeding (principal); R10.2 Pelvic and perineal pain
CPT/HCPCS: 36415; 80053; 81001; 81025; 85025; 99283; 99284

== ENCOUNTER 2023-10-12 13:51 | Outpatient (AMB) | payer OTHER, SELFPAY ==
--- NOTE | 2023-10-12 13:52 | MHC.OFFVIS ---
Intake Visit Reasons: er visit Allergies oxycodone [OXYCODONE] Allergy (Intermediate, Verified 10/10/23 23:32) RASH,SHAKES, shakiness, body shaking, tremors HPI Comments Details: Presenting for ED follow-up. The patient went to the emergency room 2 days ago with pelvic pain and vaginal bleeding, CBC, chemistry, urine test were done and within normal the patient was discharged home, her pain persisted went to the emergency room at [facility] where a CT scan showed a malpositioned IUD and adrenal mass has increased in size. IUD was removed. No fever or chills, the patient is having vaginal bleeding that is light not heavy. Last co testing was in 04/19 was negative Last mammogram was in 07/19 was BI-RADS 3, the patient is scheduled for repeat mammogram in 01/18 [facility] Medical History (Updated 10/12/23 @ 14:44 by Shashi Crabtree MD) Malpositioned IUD Meniscus degeneration Left knee pain Morbid obesity Well woman exam Gastroenteritis Internal derangement of right knee Preop exam for internal medicine Bilateral ovarian cysts Right lower quadrant pain Right flank pain Anserine bursitis COVID-19 virus infection Dawson angioma Shoulder pain, left Asthma exacerbation 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 Family history of von Willebrand disease Closed right ankle fracture Epidermal inclusion cyst Remove/insert IUD Kidney stone Ovarian cyst Ureteral stone Memory deficit Acute pain Pain management Knee swelling Knee injury Acute sinusitis Elevated LFTs Impaired fasting glucose Postsurgical hypothyroidism Benign essential hypertension COVID-19 vaccine administered Obesity Pericardial effusion Hypercholesterolemia History of thyroid cancer Vitamin D deficiency Patellar fracture Lumbar disc herniation History of renal calculi Hypothyroid Vertigo Migraine Asthma Surgical History S/P left knee arthroscopy S/P removal of left ovary Hx of arthroscopy of left knee Hx of tubal ligation History of pubovaginal sling Hx of cystoscopy History of ankle surgery History of cholecystectomy History of bladder surgery History of thyroid surgery History of back surgery History of section Family History Daughter Von Willebrand disease Maternal Grandmother Family history of bladder cancer Family history of breast cancer Sister Family history of breast cancer Maternal Grandfather Family history of lung cancer Other Asthma Diabetes Emphysema of lung Social History Household Members: Family and Children Housing: House Do you presently have visiting nurse or other home services: No Alcohol intake: never Comment: medicated, see MAR Patient Tobacco Use Status: Never used Tobacco e-Cigarette/Vaping Use: Never Used Second Hand Smoke Exposure: No service: No Current occupational status: employed 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 Cognitive needs: No Hearing needs: No Vision needs: No Female Reproductive History Menstrual Age of Menarche: 14 Review of Systems Const All systems reviewed & are unremarkable except as noted in HPI and below Reports as per HPI and Reports no additional complaints GI Reports no additional complaints Reports no additional complaints Assessment & Plan Assessment & Plan (1) Malpositioned IUD: Code(s): T83.32XA - Displacement of intrauterine contraceptive device, initial encounter Category: Medical Plan: IUD was removed in the emergency room. Discussed with the patient options of treatment including but not limited to Mirena IUD insertion, progesterone treatment, TXA. All pros and cons, risks and benefits of each were discussed with the patient, the patient decided to proceed with Lysteda so a more detailed discussion re: Lysteda including mechanism of action, benefits, risks including but not limited to thrombosis and strokes, Instructions were given on how to use, 2 tablets p.o. 3 times a day day 1 up to 3-5 days of menses and to schedule a 3 weeks follow-up appointment, and to call or go to emergency room in case of vaginal bleeding. If abnormal uterine bleeding occurs, will proceed with repeat EMB to rule out endometrial pathology The patient verbalized understanding and agreed with the plan. Coding Level of Care Code Est Pt Level 3 (96012) Diagnoses Malpositioned IUD T83.32XA
== END 2023-10-12 14:53 | disposition home or self-care (01) ==
LOC: HO.HWS 13:51
PROVIDERS: PCP Internal Medicine; Visit Provider Obstetrics & Gynecology
DX: T83.32XA Displacement of intrauterine contraceptive device, initial encounter (principal)
CPT/HCPCS: 99213

== ENCOUNTER → 2023-10-12 13:51 | Outpatient (BNVA) | payer OTHER, SELFPAY | PROVIDERS: PCP Internal Medicine; Visit Provider Obstetrics & Gynecology | DX: R10.2 Pelvic and perineal pain (principal); N93.9 Abnormal uterine and vaginal bleeding, unspecified | CPT/HCPCS: 99212 ==

== ENCOUNTER 2023-10-14 12:51 | Outpatient (REF) | payer OTHER, SELFPAY ==
--- NOTE | ~2023-10-14 | US_ITS ---
EXAMINATION: US PELVIS CLINICAL INFORMATION: Abnormal uterine bleeding, currently bleeding, left salpingo-oophorectomy January 2023, ultrasound October 27, 2022 at [facility] COMPARISON: October 27, 2022 TECHNIQUE: Ultrasound of the pelvis is performed using both transabdominal and transvaginal transducers along with Doppler. Transvaginal imaging is performed due to inadequate visualization transabdominally. FINDINGS: Uterus is anteverted and measures 10.6 x 5.6 x 7.3 cm, volume 225.1 mL. 1.1 x 1.0 x 0.8 cm, 2.9 x 2.4 x 3.2 cm, and 1.3 x 0.8 x 0.9 cm uterine masses were not identified on the previous exam and are characteristic of fibroids. Left ovary not visualized. No significant free fluid. Right ovary measures 3.0 x 1.8 x 2.2 cm, volume is 0.2 mL and is unremarkable. Endometrium appears heterogeneous with thickness of 10 mm. Multiple nabothian cysts in the cervix. US/US pelvic and transvaginal IMPRESSION: 1. Multiple uterine masses were not identified on the previous exam and are characteristic of fibroids. 2. Endometrium appears heterogeneous with thickness of 10 mm. 3. Left ovary not visualized. 4. Right ovary is unremarkable. 5. Multiple nabothian cysts in the cervix. This study was presented today November 23, 2023 for interpretation. Stat results provided at this time as requested by referring provider. Electronically signed by: Neida Morgan MD 11/23/2023 07:36 AM EDT
[2023-10-14 13:22] LABS: Hematocrit 38.2 % (37.0-47.0); Mean Corpuscular Hemoglobin 30.9 pg (27.0-33.0); Mean Corpuscular Volume 90.7 fL (80.0-98.0); Mean Platelet Volume 11.2 fL (9.4-12.3); Platelet Count 281 X10*3/uL (160-400); Red Blood Count 4.21 X10*6/uL (4.20-5.50); Red Cell Distribution Width 12.4 % (11.0-16.0); White Blood Count 9.8 X10*3/uL (4.8-10.8)
[2023-10-15 05:54] LABS: CT PCR NOT DETECTED (Not Detect.); NG PCR NOT DETECTED (Not Detect.)
== END 2023-10-14 12:52 | disposition home or self-care (01) ==
LOC: HO.LAB 12:51
PROVIDERS: PCP Internal Medicine; Visit Provider Obstetrics & Gynecology
DX: N93.9 Abnormal uterine and vaginal bleeding, unspecified (principal)
CPT/HCPCS: 36415; 58100; 76830; 76856; 85027; 87491; 87591

== ENCOUNTER 2023-10-14 13:26 | Outpatient (AMB) | payer OTHER, SELFPAY ==
--- NOTE | 2023-10-14 13:26 | MHC.OFFVIS ---
Vital Signs 10/14/23 13:27 Height 5 ft 1 in Weight 218 lb 4.122 oz BMI 41.2 Intake Visit Reasons: Vaginal bleeding Interactive Account Manager Required: No Information Interpreted: non-clinical & clinical Developmental Specialist: Developmental Specialist Present (Bella MUNOZ) Accompanied by: Self / Same As Patient Allergies oxycodone [OXYCODONE] Allergy (Intermediate, Verified 10/14/23 13:27) RASH,SHAKES, shakiness, body shaking, tremors HPI Comments Details: Presenting complaining of heavy menstrual cycles after Mirena IUD removal few days ago in the emergency room due to malposition and pelvic pain, the patient was prescribed Lysteda which she has been taken 2 tablets of 650 mg p.o. t.i.d. but her menstrual cycles are still heavy , associated with passage of blood clots. Last mammogram was BI-RADS 3 in 06/18, the recommendation was to repeat in 12 months Ultrasound done in 11/17 showed a 7.5 cm complex ovarian cyst, the patient was referred to plating technician Oncology at [facility] and the patient underwent laparoscopic salpingo-oophorectomy, benign pathology. [facility] Medical History Malpositioned IUD Meniscus degeneration Left knee pain Morbid obesity Well woman exam Gastroenteritis Internal derangement of right knee Preop exam for internal medicine Bilateral ovarian cysts Right lower quadrant pain Right flank pain Anserine bursitis COVID-19 virus infection Dawson angioma Shoulder pain, left Asthma exacerbation 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 Family history of von Willebrand disease Closed right ankle fracture Epidermal inclusion cyst Remove/insert IUD Kidney stone Ovarian cyst Ureteral stone Memory deficit Acute pain Pain management Knee swelling Knee injury Acute sinusitis Elevated LFTs Impaired fasting glucose Postsurgical hypothyroidism Benign essential hypertension COVID-19 vaccine administered Obesity Pericardial effusion Hypercholesterolemia History of thyroid cancer Vitamin D deficiency Patellar fracture Lumbar disc herniation History of renal calculi Hypothyroid Vertigo Migraine Asthma Surgical History S/P left knee arthroscopy S/P removal of left ovary Hx of arthroscopy of left knee Hx of tubal ligation History of pubovaginal sling Hx of cystoscopy History of ankle surgery History of cholecystectomy History of bladder surgery History of thyroid surgery History of back surgery History of section Family History Daughter Von Willebrand disease Maternal Grandmother Family history of bladder cancer Family history of breast cancer Sister Family history of breast cancer Maternal Grandfather Family history of lung cancer Other Asthma Diabetes Emphysema of lung Social History Household Members: Family and Children Housing: House Do you presently have visiting nurse or other home services: No Alcohol intake: never Comment: medicated, see MAR Patient Tobacco Use Status: Never used Tobacco e-Cigarette/Vaping Use: Never Used Second Hand Smoke Exposure: No service: No Current occupational status: employed Current occupation: [employer], 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 Cognitive needs: No Hearing needs: No Vision needs: No Female Reproductive History Menstrual Age of Menarche: 14 Review of Systems Const All systems reviewed & are unremarkable except as noted in HPI and below Physical Exam Vital Signs: BMI result Body Mass Index 41.2 General: Yes no CVA tenderness External Female Exam: normal external appearance and normal appearance of the urethra Speculum Exam - Vagina: normal appearance of the vagina, normal palpation, no lesions, no masses and other (No evidence of acne vaginal bleeding) Speculum Exam - Cervix: normal appearance of the cervix, normal palpation, no lesions, no masses and nontender Bimanual exam- vagina & uterus: normal bimanual exam, normal palpation, uterine size normal, normal palpation, uterine shape normal, No Cervical tenderness present and non-tender Bimanual Exam- Adnexa, other: normal adnexae Back/Spine/Pelvis Back: no CVA tenderness Office Procedures Endometrial Biopsy Details: The patient was counseled regarding the indication and benefits of endometrial sampling to rule out endometrial pathology including not limited to endometrial hyperplasia or endometrial cancer and others; The alternatives (Either do nothing vs. hysteroscopy D&C) & the risks were discussed with the patient including but not limited: pain, uterine perforation, bleeding, infection, possible injury to bladder, bowel, ureter, possible need for blood transfusion with all its possible risks. The patient verbalized understanding all questions answered and signed consent. Urine test done in the office was negative The patient was placed into the dorsal lithotomy position; a speculum was inserted in the vagina. Using aseptic technique for the procedure, the cervix was cleansed with Betadine. The anterior lip of the cervix was grasped with a single tooth tenaculum. The uterus was sounded to 7 cm with a 4 mm Pipelle was used. Tissues samples were obtained and placed in formalin, in a patient labeled container and sent to the pathology department. At the end of the procedure, there was minimal bleeding noted The patient tolerated the procedure well and was discharged in good condition with the following instructions: Nothing in the vagina until the bleeding stops. No sex until the bleeding stops, to call if any of the following occurs: fever (>100.4), flu-like symptoms, abdominal pain, heavy bleeding, four smelling vaginal discharge. The patient was instructed to schedule a Follow up appointment in 2 weeks to discuss pathology results of the biopsy and treatment options. This note was generated with a voice recognition program. Some errors may have been overlooked during the review of this note. Sometimes these errors may affect the content or meaning of a given sentence. [id number] Biopsy Assessment & Plan Assessment & Plan (1) Abnormal uterine bleeding: Code(s): N93.9 - Abnormal uterine and vaginal bleeding, unspecified Category: Medical Plan: UPT done in the office was negative, CBC stat done today was within normal, GC/CT taken, pelvic ultrasound ordered. EMB to rule out endometrial pathology including endometrial hyperplasia and/or malignancy was done , see procedure note Discussed with the patient the results of the work up done and options of treatment including but not limited to BCP's, Progesterone, Mirena IUD, endometrial ablation and hysterectomy. All pros, cons, risks and benefits of each option were discussed with the patient and the patient decided to go ahead with Provera for the time being till the results are back and then would prefer surgical management for definitive treatment of her abnormal uterine bleeding, so a more detailed discussion re: Progesterone treatment including mechanism of action, benefits (regular menses, endometrial protection form unopposed estrogen and reduction in the risk of endometrial hyperplasia and/or cancer ...), risks (Thrombosis, mood changes, weight gain, breast soreness, ? increased breast ca, others). Instructions were given to take the medication 1 tablet daily starting tomorrow since the patient took her Lysteda pills today, call or go to emergency room in case of persistence or worsening for heavy vaginal bleeding, and schedule a follow-up appointment in 5 days; patient verbalized understanding and agreed with the plan. Orders: Orders US pelvic and transvaginal Today N93.9 - Abnormal uterine and vaginal bleeding, unspecified Surgical Today N93.9 - Abnormal uterine and vaginal bleeding, unspecified CT NG by PCR Today N93.9 - Abnormal uterine and vaginal bleeding, unspecified AMB Endometrial Biopsy Today N93.9 - Abnormal uterine and vaginal bleeding, unspecified Medications: New medroxyprogesterone (Provera) start Provera 1 tablet daily 10 mg PO DAILY 90 days 90 tabs 0RF Coding Level of Care Code Est Pt Level 3 (74599) Diagnoses Abnormal uterine bleeding N93.9 CPT Codes Endometrial Biopsy - CPT: 21987-Dasslirpbog Biopsy ([id number])
[2023-10-14 13:27] VITALS: BMI 41.2
== END 2023-10-14 13:56 | disposition home or self-care (01) ==
LOC: HO.HWS 13:26
PROVIDERS: PCP Internal Medicine; Visit Provider Obstetrics & Gynecology
DX: N93.9 Abnormal uterine and vaginal bleeding, unspecified (principal)
CPT/HCPCS: 58100

== ENCOUNTER 2023-10-14 13:43 | Outpatient (REF) | payer OTHER, SELFPAY | END 2023-10-14 13:44 | disposition home or self-care (01) | LOC: HO.LNP 13:43 | PROVIDERS: Visit Provider Obstetrics & Gynecology | DX: N93.9 Abnormal uterine and vaginal bleeding, unspecified (principal) | CPT/HCPCS: 88305 ==

== ENCOUNTER 2023-10-18 07:44 | Outpatient (REF) | payer OTHER, SELFPAY ==
--- NOTE | ~2023-10-18 | FL_ITS ---
EXAMINATION: XR FLUOROSCOPY UPPER GI WITH AIR CLINICAL INFORMATION: Preop evaluation prior to bariatric surgery COMPARISON: Upper GI November 2022 TECHNIQUE: Fluoroscopic air contrast upper GI examination was performed utilizing standard techniques with thin and thick barium and effervescent granules. Numerous spot images were obtained. FINDINGS: Images of the oropharynx and hypopharynx demonstrate normal swallow mechanism with normal epiglottic inversion and soft palate elevation. No tracheal penetration, glottic or subglottic aspiration identified. No nasopharyngeal reflux present. Hypopharyngeal structures appear normal without evidence of mass or diverticulum. There is mild cricopharyngeal achalasia present. Dual and single contrast images of the esophagus demonstrate normal caliber, contour, and mucosal pattern. No evidence of stricture, mass, or ulcerations identified. Esophageal peristalsis was normal. A small type I hiatal hernia is present. Gastroesophageal reflux is seen up to the thoracic inlet. There are cholecystectomy clips present. There are surgical clips abutting the trachea in the region of the thyroid gland. Dual contrast and single contrast images of the stomach demonstrated normal contour. The gastric rugal folds have a mildly thickened appearance. No masses or ulcerations are seen. Contrast freely passed into the gastric antrum and duodenal bulb without delay. Single and air-contrast images of the duodenal bulb demonstrate no abnormality. The duodenal sweep has a normal appearance, course, and mucosal fold appearance. The imaged proximal jejunum has a normal fold pattern and caliber. FLUOROSCOPY TIME: 2 minutes 57 seconds Number of Spot Images: 9 Number of Cine: 12 DOSE AREA PRODUCT: 2527 uGy-m2 (microgray-meter squared) FL/FL upper GI w air IMPRESSION: 1. Mild cricopharyngeal achalasia. 2. Small type I hiatal hernia with moderate gastroesophageal reflux. 3. Mildly thickened gastric rugal folds which suggests gastritis. This procedure was performed by Yoel Bill PA-C, and supervised by Dr. Sullivan
== END 2023-10-18 07:45 | disposition home or self-care (01) ==
LOC: HO.XRAY 07:44
PROVIDERS: Visit Provider Surgery
DX: E66.01 Morbid (severe) obesity due to excess calories (principal); K21.9 Gastro-esophageal reflux disease without esophagitis; J45.31 Mild persistent asthma with (acute) exacerbation; E78.00 Pure hypercholesterolemia, unspecified
CPT/HCPCS: 11404; 74246; 99202

== ENCOUNTER → 2023-10-18 07:45 | Outpatient (BNV) | payer OTHER, SELFPAY | PROVIDERS: Visit Provider Physician Assistant Surgical | DX: K21.9 Gastro-esophageal reflux disease without esophagitis (principal); E66.01 Morbid (severe) obesity due to excess calories; Z01.818 Encounter for other preprocedural examination | CPT/HCPCS: 74246 ==

== ENCOUNTER 2023-10-18 09:34 | Outpatient (AMB) | payer OTHER, SELFPAY ==
--- NOTE | 2023-10-18 09:36 | MHC.OFFVIS ---
Vital Signs 10/18/23 10:04 Height 5 ft 1 in Weight 219 lb BMI 41.4 BP 118/66 Blood Pressure Location Rt brachial Position Sitting Pulse 85 Intake Visit Reasons: Mass-lump~ Under rt breast Intake Note: Patient referred by pcp Dr. Pelaez for mass/ lump under rt breast. Was removed 2-3 yrs ago. Noticed lesion growing back since last year. Patient c/o: denies bleeding, oozing, tenderness. Transitional Nurse Required: No Accompanied by: Self / Same As Patient Allergies oxycodone [OXYCODONE] Allergy (Intermediate, Verified 10/18/23 09:41) RASH,SHAKES, shakiness, body shaking, tremors Medication List - Last Reconciled 10/18/23 by Poncho Lewis MD albuterol sulfate 90 mcg/actuation (ProAir HFA) 2 puffs inhalation Q6H PRN 30 days amlodipine 5 mg PO DAILY blood pressure monitor As directed cholecalciferol (vitamin D3) 25 mcg PO DAILY cholestyramine-aspartame 4 gram (Prevalite) 4 grams PO BID diclofenac sodium 1% (Voltaren Arthritis Pain) 4 grams topical QID gabapentin 100 mg PO TID ibuprofen 600 mg PO Q6H PRN Lactobacillus rhamnosus GG (Culturelle) 1 cap PO DAILY levothyroxine 300 mcg PO DAILY lisinopril 40 mg PO DAILY 30 days meclizine 25 mg PO TID PRN medroxyprogesterone (Provera) 10 mg PO DAILY 90 days omeprazole 20 mg PO QAM ondansetron 4 mg PO Q6-8H PRN polyethylene glycol 3350 (Gavilax) grams PO pyridoxine (vitamin B6) 50 mg PO DAILY 90 days rizatriptan 10 mg PO .QD PRN sodium,potassium,mag sulfates 17.5-3.13-1.6 gram (Suprep Bowel Prep Kit) 480 mL orally; FOR COLONOSCOPY PREP tramadol 50 mg PO Q8H PRN tranexamic acid 1,300 mg (2 x 650 mg) PO TID 5 days HPI Comments Details: Patient presents because of a recurrent sebaceous cyst of the right inframammary area. It has increased in size and become more symptomatic. This was excised approximately 2 years ago. Patient has no such lesions elsewhere. Chart was reviewed and patient evaluated. Patient has a plethora of comorbidities and medical problems. [facility] Medical History Malpositioned IUD Meniscus degeneration Left knee pain Morbid obesity Well woman exam Gastroenteritis Internal derangement of right knee Preop exam for internal medicine Bilateral ovarian cysts Right lower quadrant pain Right flank pain Anserine bursitis COVID-19 virus infection Dawson angioma Shoulder pain, left Asthma exacerbation 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 Family history of von Willebrand disease Closed right ankle fracture Epidermal inclusion cyst Remove/insert IUD Kidney stone Ovarian cyst Ureteral stone Memory deficit Acute pain Pain management Knee swelling Knee injury Acute sinusitis Elevated LFTs Impaired fasting glucose Postsurgical hypothyroidism Benign essential hypertension COVID-19 vaccine administered Obesity Pericardial effusion Hypercholesterolemia History of thyroid cancer Vitamin D deficiency Patellar fracture Lumbar disc herniation History of renal calculi Hypothyroid Vertigo Migraine Asthma Surgical History S/P left knee arthroscopy S/P removal of left ovary Hx of arthroscopy of left knee Hx of tubal ligation History of pubovaginal sling Hx of cystoscopy History of ankle surgery History of cholecystectomy History of bladder surgery History of thyroid surgery History of back surgery History of section Family History Daughter Von Willebrand disease Maternal Grandmother Family history of bladder cancer Family history of breast cancer Sister Family history of breast cancer Maternal Grandfather Family history of lung cancer Other Asthma Diabetes Emphysema of lung Social History Household Members: Family and Children Housing: House Do you presently have visiting nurse or other home services: No Alcohol intake: never Comment: medicated, see MAR Patient Tobacco Use Status: Never used Tobacco e-Cigarette/Vaping Use: Never Used Second Hand Smoke Exposure: No service: No Current occupational status: employed 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 Cognitive needs: No Hearing needs: No Vision needs: No Female Reproductive History Menstrual Age of Menarche: 14 Physical Exam Vital Signs: Last Vital Signs Pulse 85 10/18/23 10:04 BP 118/66 10/18/23 10:04 BMI result Body Mass Index 41.4 Chest Other: Proximally 4 x 3 cm recur sebaceous cyst of the right mid inframammary chest. Office Procedures Excision Details: Risks, benefits, alternatives of excision of recurrent chest wall sebaceous cyst reviewed the patient and included but not limited to bleeding, infection, recurrence, numbness, pain, scarring, seroma formation, wound dehiscence with the patient wished to proceed. Consent was signed. All questions answered. After appropriate positioning, patient underwent 1% lidocaine and Betadine prep. Transverse by elliptical incision encompassing the mass in question measuring approximately 4 x 3 cm was uneventfully performed. Cyst was excised in total and sent to pathology. Wound was irrigated, secured hemostasis, and closed using running subcuticular 3-0 Vicryl suture followed by Steri-Strips and sterile dressings. Patient tolerated procedure well 66251-sbeud/arms/legs 3.1-4cm Procedure code (CPT) selection complete Office Meds lidocaine 1 %-epinephrine 1:100,000 injection solution Performing Provider: Poncho Lewis MD [place] [facility] [place] [facility] Administered by: Poncho Lewis MD on 10/18/23 10:03 Dose Route Admin Location Dispensed Lot Number Expiration Date [facility] Route Sales Person 15 mL Infiltration 15 mL Assessment & Plan Assessment & Plan (1) Mass of chest wall, right: Comment: inframammary area Code(s): R22.2 - Localized swelling, mass and lump, trunk Category: Surgical Plan: Patient has been given local instructions including ice to wound periodically, Motrin or Advil or Tylenol p.r.n. pain, may shower in 2 days, no strenuous activities, and patient will see me as directed or p.r.n.. Orders: Orders AMB Excision Today R22.2 - Localized swelling, mass and lump, trunk Surgical Today L72.0 - Epidermal cyst Coding Level of Care Code New Pt Level 5 (10536) Diagnoses Mass of chest wall, right R22.2 CPT Codes Trunk/Arms/Legs - CPT: 62544-pnwqs/arms/legs 3.1-4cm ([id number])
[2023-10-18 10:04] VITALS: BP 118/66; PULSE 85; BMI 41.4
== END 2023-10-18 10:00 | disposition home or self-care (01) ==
PROVIDERS: PCP Internal Medicine; Referring Provider Internal Medicine; Visit Provider Surgery
DX: L72.0 Epidermal cyst (principal)
CPT/HCPCS: 11404; 99203

== ENCOUNTER 2023-10-18 09:45 | Outpatient (REF) | payer OTHER, SELFPAY | END 2023-10-18 09:46 | disposition home or self-care (01) | LOC: HO.LNP 09:45 | PROVIDERS: Visit Provider Surgery | DX: L72.0 Epidermal cyst (principal) | CPT/HCPCS: 88304 ==

== ENCOUNTER 2023-10-19 14:11 | Outpatient (AMB) | payer OTHER, SELFPAY ==
[2023-10-19 14:25] VITALS: BMI 41.2
--- NOTE | 2023-10-19 14:25 | A.OFFVIS_ITS ---
Vital Signs 10/19/23 14:25 Height 5 ft 1 in Weight 218 lb 4.122 oz BMI 41.2 Intake Visit Reasons: Follow up hospital / repeat emb Clinical Evaluator: Clinical Evaluator Present Allergies oxycodone [OXYCODONE] Allergy (Intermediate, Verified 10/18/23 09:41) RASH,SHAKES, shakiness, body shaking, tremors Is last menstrual period known: Yes Last menstrual period: 01/24/20 Post menopausal: No Patient : No Do you need a note to return to daycare/school/sports/work: Yes (for surgery on tuesday) HPI Comments Details: The patient is presenting after endometrial biopsy. The patient has no complaints, no vaginal bleeding, no feverishness chills or abdominal pain. The endometrial biopsy pathology report showed the following: Endometrium, biopsy: - Superficial fragments of endocervical tissue within normal limits. - Abundant mucoinflammatory material and organizing clot. - Rare small fragment of endometrial tissue with pseudodecidual change, consistent with exogenous progestin. Comment: Given the paucity of endometrial tissue, repeat sampling is recommended, as clinically appropriate ON LICENSE OF [facility] Medical History Malpositioned IUD Meniscus degeneration Left knee pain Morbid obesity Well woman exam Gastroenteritis Internal derangement of right knee Preop exam for internal medicine Bilateral ovarian cysts Right lower quadrant pain Right flank pain Anserine bursitis COVID-19 virus infection Dawson angioma Shoulder pain, left Asthma exacerbation 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 Family history of von Willebrand disease Closed right ankle fracture Epidermal inclusion cyst Remove/insert IUD Kidney stone Ovarian cyst Ureteral stone Memory deficit Acute pain Pain management Knee swelling Knee injury Acute sinusitis Elevated LFTs Impaired fasting glucose Postsurgical hypothyroidism Benign essential hypertension COVID-19 vaccine administered Obesity Pericardial effusion Hypercholesterolemia History of thyroid cancer Vitamin D deficiency Patellar fracture Lumbar disc herniation History of renal calculi Hypothyroid Vertigo Migraine Asthma Surgical History S/P left knee arthroscopy S/P removal of left ovary Hx of arthroscopy of left knee Hx of tubal ligation History of pubovaginal sling Hx of cystoscopy History of ankle surgery History of cholecystectomy History of bladder surgery History of thyroid surgery History of back surgery History of section Family History Daughter Von Willebrand disease Maternal Grandmother Family history of bladder cancer Family history of breast cancer Sister Family history of breast cancer Maternal Grandfather Family history of lung cancer Other Asthma Diabetes Emphysema of lung Social History Household Members: Family and Children Housing: House Do you presently have visiting nurse or other home services: No Alcohol intake: never Comment: medicated, see MAR Patient Tobacco Use Status: Never used Tobacco e-Cigarette/Vaping Use: Never Used Second Hand Smoke Exposure: No service: No Current occupational status: employed 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 Cognitive needs: No Hearing needs: No Vision needs: No Female Reproductive History Menstrual Age of Menarche: 14 Date of last menstrual period: 01/24/20 Total pregnancies: 2 Full term: 2 Review of Systems Card Reports as per HPI and Reports no additional complaints Resp Reports as per HPI and Reports no additional complaints GI Reports as per HPI and Reports no additional complaints Reports as per HPI Physical Exam Vital Signs: BMI result Body Mass Index 41.2 Const General: cooperative, healthy appearing and comfortable Resp Effort & Inspection: normal respiratory effort Auscultation: clear to auscultation bilaterally Percussion: percussion normal Cardio Palpation: normal PMI Rate: regular rate Rhythm: regular rhythm Heart sounds: no murmurs and no rubs Peripheral pulses: Peripheral pulses 2+ throughout GI Inspection: Yes normal to inspection Palpation (GI): Soft to palpation, nontender, no guarding, not rigid and No hepatosplenomegaly present Percussion: Yes normal to percussion Auscultation: normal bowel sounds Rectal Exam - Female: deferred Assessment & Plan Assessment & Plan (1) Abnormal uterine bleeding: Code(s): N93.9 - Abnormal uterine and vaginal bleeding, unspecified Category: Medical Plan: Discussed with the patient the results the pathology. The negative predictive value, positive predictive value, Sensitivity, specificity of using ultrasound measurement of endometrial stripe to detecting endometrial pathology including hyperplasia , polyp or cancer were discussed with the patient. Recommended to the patient that the next step is a repeat endometrial sampling via hysteroscopy D&C possible polypectomy versus endometrial biopsy to r/o endometrial pathology including hyperplasia or cancer. All the pros and cons risks and benefits of each approach were discussed with the patient, endometrial biopsy being less invasive, office procedure with less sensitivity and inability diagnose a polyp and removal versus hysteroscopy done under anesthesia more invasive more sensitive to endometrial cancer and possibility of diagnosing and endometrial polyp with the possibility of polypectomy. All questions were answered pt verbalized understanding and decided to proceed with hysteroscopy D&C possible polypectomy/myomectomy. Discussed with the patient the procedure , all benefits and risks including but not limited to inability to complete the procedure , insufficient endometrial tissue for a complete evaluation of the endometrial cavity , bleeding, infection, possible need for blood transfusion with all its risk ( HIV,syphilis, Hepatitis, anaphylaxis shock, others..), injury to bladder, rectum, possible need for laparoscopy/laparotomy or hysterectomy. The patient verbalized understanding and signed the consent. Instructions given the patient to stay NPO after midnight the day prior to the procedure and to take only the specific medication (s) discussed the morning of the surgical procedure and to schedule a 2 week postoperative appointment Coding Level of Care Code Est Pt Level 3 (33504) Diagnoses Abnormal uterine bleeding N93.9
== END 2023-10-19 14:51 | disposition home or self-care (01) ==
PROVIDERS: PCP Internal Medicine; Visit Provider Obstetrics & Gynecology
DX: N93.9 Abnormal uterine and vaginal bleeding, unspecified (principal)
CPT/HCPCS: 99213

== ENCOUNTER → 2023-10-19 14:11 | Outpatient (BNVA) | payer OTHER, SELFPAY | PROVIDERS: PCP Internal Medicine; Visit Provider Obstetrics & Gynecology | DX: N93.9 Abnormal uterine and vaginal bleeding, unspecified (principal) | CPT/HCPCS: 99212 ==

== ENCOUNTER 2023-10-24 12:24 | Day surgery (SDC) | payer OTHER, SELFPAY ==
--- NOTE | 2023-10-21 12:06 | P.CONAN_ITS ---
Documented by User: Kristy Hawley NP 10/21/23 12:09 HPI - Anesthesia Eval Consult details Narrative: 48yo F for D&C Hysteroscopy,possible myomectomy,possible polypectomy s/p EGD 09/27/23 with [facility] Active Problems Active Problems: All Active Problems Malpositioned IUD (Acute) Mass of chest wall, right (Acute) Annual physical exam (Acute) Left knee pain (Acute) Meniscus degeneration (Acute) Unspecified nonpsychotic mental disorder (Acute) Morbid obesity (Acute) GERD (gastroesophageal reflux disease) (Acute) Asthma (Acute) Pre-op examination (Acute) Osteoarthritis of right patellofemoral joint (Acute) Hemorrhagic cyst of ovary (Acute) Dysphagia (Acute) Bile salt-induced diarrhea (Acute) Abnormal uterine bleeding (Acute) Fatty liver (Acute) Adenoma of right adrenal gland (Acute) Complex ovarian cyst (Acute) Hydronephrosis (Acute) Headache (Acute) Osteoarthritis of left knee (Acute) Migraine (Acute) Nephrolithiasis (Acute) Impaired fasting glucose (Acute) Postsurgical hypothyroidism (Acute) Benign essential hypertension (Acute) Obesity (Acute) Hypercholesterolemia (Acute) History of thyroid cancer (Acute) Vitamin D deficiency (Acute) Past Medical History Medical History Malpositioned IUD Meniscus degeneration Left knee pain Morbid obesity Well woman exam Gastroenteritis Internal derangement of right knee Preop exam for internal medicine Bilateral ovarian cysts Right lower quadrant pain Right flank pain Anserine bursitis COVID-19 virus infection Dawson angioma Shoulder pain, left Asthma exacerbation 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 Family history of von Willebrand disease Closed right ankle fracture Epidermal inclusion cyst Remove/insert IUD Kidney stone Ovarian cyst Ureteral stone Memory deficit Acute pain Pain management Knee swelling Knee injury Acute sinusitis Elevated LFTs Impaired fasting glucose Postsurgical hypothyroidism Benign essential hypertension COVID-19 vaccine administered Obesity Pericardial effusion Hypercholesterolemia History of thyroid cancer Vitamin D deficiency Patellar fracture Lumbar disc herniation History of renal calculi Hypothyroid Vertigo Migraine Asthma Family History Family History Daughter Von Willebrand disease Maternal Grandmother Family history of bladder cancer Family history of breast cancer Sister Family history of breast cancer Maternal Grandfather Family history of lung cancer Other Asthma Diabetes Emphysema of lung Family history of problems with anesthesia: No Surgical History Surgical History S/P left knee arthroscopy S/P removal of left ovary Hx of arthroscopy of left knee Hx of tubal ligation History of pubovaginal sling Hx of cystoscopy History of ankle surgery History of cholecystectomy History of bladder surgery History of thyroid surgery History of back surgery History of section History of Problems with Anesthesia: No Social History Social History Household Members: Family and Children Housing: House Do you presently have visiting nurse or other home services: No Alcohol intake: never Comment: medicated, see MAR Patient Tobacco Use Status: Never used Tobacco e-Cigarette/Vaping Use: Never Used Second Hand Smoke Exposure: No service: No Current occupational status: employed 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 Cognitive needs: No Hearing needs: No Vision needs: No Meds Allergies Allergy/AdvReac Type Severity Reaction Status Date / Time oxycodone [OXYCODONE] Allergy Intermediate RASH,SHAKES, Verified 10/24/23 13:00 shakiness, body shaking, tremors Home Medications ?Medication ?Instructions ?Recorded ?Confirmed ?Last Taken ?Type levothyroxine 300 mcg tablet 300 mcg PO DAILY 07/29/23 10/24/23 09/26/23 History polyethylene glycol 3350 17 g PO 07/29/23 10/18/23 Unknown History gram/dose oral powder (Gavilax) Exam Pertinent Lab Results Pertinent Lab Results: Laboratory Tests 10/10/23 10/14/23 23:54 13:05 WBC 9.8 Hgb 13.0 Hct 38.2 Plt Count 281 Sodium 139 Potassium 3.3 Chloride 107 Carbon Dioxide 22 BUN 18 H Creatinine 0.55 Narrative Narrative: EKG 07/2023 Vent. Rate : 087 BPM Atrial Rate : 087 BPM P-R Int : 146 ms QRS Dur : 084 ms QT Int : 350 ms P-R-T Axes : 042 007 034 degrees QTc Int : 421 ms Normal sinus rhythm Normal ECG When compared with ECG of 10-SEP-2020 15:17, No significant change was found Assessment and Plan Assessment Anesthesia Assessment: Chart Reviewed Final Anesthetic Review Family History of Problems with Anesthesia: No History of Problems with Anesthesia: No Documented by User: Lianna Llamas MD 10/24/23 13:48 PMFSH Past Medical History Medical History Malpositioned IUD Meniscus degeneration Left knee pain Morbid obesity Well woman exam Gastroenteritis Internal derangement of right knee Preop exam for internal medicine Bilateral ovarian cysts Right lower quadrant pain Right flank pain Anserine bursitis COVID-19 virus infection Dawson angioma Shoulder pain, left Asthma exacerbation 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 Family history of von Willebrand disease Closed right ankle fracture Epidermal inclusion cyst Remove/insert IUD Kidney stone Ovarian cyst Ureteral stone Memory deficit Acute pain Pain management Knee swelling Knee injury Acute sinusitis Elevated LFTs Impaired fasting glucose Postsurgical hypothyroidism Benign essential hypertension COVID-19 vaccine administered Obesity Pericardial effusion Hypercholesterolemia History of thyroid cancer Vitamin D deficiency Patellar fracture Lumbar disc herniation History of renal calculi Hypothyroid Vertigo Migraine Asthma Family History Family History Daughter Von Willebrand disease Maternal Grandmother Family history of bladder cancer Family history of breast cancer Sister Family history of breast cancer Maternal Grandfather Family history of lung cancer Other Asthma Diabetes Emphysema of lung Surgical History Surgical History S/P left knee arthroscopy S/P removal of left ovary Hx of arthroscopy of left knee Hx of tubal ligation History of pubovaginal sling Hx of cystoscopy History of ankle surgery History of cholecystectomy History of bladder surgery History of thyroid surgery History of back surgery History of section Social History Social History Household Members: Family and Children Housing: House Do you presently have visiting nurse or other home services: No Alcohol intake: never Comment: medicated, see MAR Patient Tobacco Use Status: Never used Tobacco e-Cigarette/Vaping Use: Never Used Second Hand Smoke Exposure: No service: No Current occupational status: employed 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 Cognitive needs: No Hearing needs: No Vision needs: No Meds Allergies Allergy/AdvReac Type Severity Reaction Status Date / Time oxycodone [OXYCODONE] Allergy Intermediate RASH,SHAKES, Verified 10/24/23 13:00 shakiness, body shaking, tremors Home Medications ?Medication ?Instructions ?Recorded ?Confirmed ?Last Taken ?Type levothyroxine 300 mcg tablet 300 mcg PO DAILY 07/29/23 10/24/23 09/26/23 History polyethylene glycol 3350 17 g PO 07/29/23 10/18/23 Unknown History gram/dose oral powder (Gavilax) Exam Airway Mallampati Class: II TM Dist: >3cm Neck ROM: Full Heart: rrr Lungs: cta Assessment and Plan Assessment Anesthesia Assessment: Anesthesia Plan Discussed Final Anesthetic Review NPO: No ASA Class: II Final Preanesthetic Review: No Changes in Pt Med Stat, Meds/Allgs Chart Reviewed, Consent Obtained/Reviewed and Anes Risks/Benef Reviewed Patient Risk: Intermediate Procedure Risk: Low Anesthetic Plan Anesthetic Plan: GA Disposition: Standard PACU
[2023-10-24] VITALS (9 sets, daily range): BP systolic 117–137; BP diastolic 73–87; PULSE 68–85; RESP 14–16; TEMP 36.3–36.8; O2SAT 95–100; BMI 41.0
[2023-10-24 13:08] LABS: UPreg QC Valid YES; Urine Pregnancy NEGATIVE (NEGATIVE)
[2023-10-24] MEDS: Lactated Ringers 1,000 ML 100 ML IVCONT (13:20)
--- NOTE | 2023-10-24 14:05 | MHC.SHP ---
Pre-Procedural Eval Section A - 24 Hr Update-Section A only Date of Service: 10/24/23 The patient is an INPATIENT: No Changes since office visit: No Cold of Flu in the past 2 weeks, No New Medical Problems, No Changes in Medication and No Patient answered all questions The patient has been examined within 24 hours of the surgical procedure. The History & Physical has been completed within 30 days and I have reviewed it.: Yes Section B - Complete if H&P > 30 days Chief Complaint: Abnormal uterine and vaginal bleeding, Allergies: Allergies Allergy/AdvReac Type Severity Reaction Status Date / Time oxycodone [OXYCODONE] Allergy Intermediate RASH,SHAKES, Verified 10/24/23 13:00 shakiness, body shaking, tremors Plan Diagnosis/Plan: Unchanged I have reviewed the history and physical and performed a pertinent physical examination on my patient. No changes have occurred unless specified. Time Spent With Patient Time: Total time managing care of this patient today ____ minutes.
--- NOTE | 2023-10-24 16:00 | PM.OP ---
Brief Operative Note Date of Service: 10/24/23 Pre-op diagnosis: Abnormal uterine bleeding Post-op diagnosis: same (Endometrial polyp) Procedure: Hysteroscopy D&C, Polypectomy Surgeon: Shashi Crabtree MD Anesthesia: GLMA Was an Commercial Property Manager used for this Procedure?: No Estimated blood loss (mL): 0 Pathology: other (Endometrial Scrapping. Polyp) Condition: stable Disposition: PACU
--- NOTE | 2023-10-24 16:00 | W.PM.OPN ---
Operative Note Operative Note Date of Service: 10/24/23 Narrative: Preop Diagnosis: Abnormal uterine bleeding Operation: Diagnostic Hysteroscopy, Dilataion & Curettage and polypectomy Post Op Diagnosis: Endometrial Polyp QBL: Minimal Anesthesia: GLMA Surgeon: Shashi Crabtree MD Veterinary Physiologist: None Complication: None Pathology: Endometrial Scrapings, Endometrial polyp Procedure: The patient was put in the dorsal lithotomy position, scrubbed, and draped in the usual manner. A sterile speculum was inserted in the patient's vagina. The anterior lip of the cervix was grasped with a single tooth tenaculum. The cervix was dilated up to 5 mm, then the scope was inserted in the patient's uterus. Inspection revealed endometrial polyp. The Myosure Reach device was used; it was introduced through the operative channel and polypectomy done with no complications. The scope was then taken out from the uterine cavity, sharp curettings was carried on with minimal to moderate amount of tissues retrieved. At the end of the procedure, all instruments were taken out of the patient uterine and vaginal cavity. The single tooth tenaculum was removed and homeostasis was assured using pressure,. The patient tolerated the procedure well and was transferred to the PACU in a stable condition.
== END 2023-10-24 16:09 | disposition home or self-care (01) ==
PROVIDERS: PCP Internal Medicine; Visit Provider Obstetrics & Gynecology
PROC: 0UDB8ZZ Extraction of Endometrium, Via Natural or Artificial Opening Endoscopic (ICD-10-PCS; CPT 58558; principal; 2023-10-24 14:00)
DX: N93.9 Abnormal uterine and vaginal bleeding, unspecified (principal); N84.0 Polyp of corpus uteri; I10 Essential (primary) hypertension; E78.00 Pure hypercholesterolemia, unspecified; E89.0 Postprocedural hypothyroidism; R73.01 Impaired fasting glucose; E66.01 Morbid (severe) obesity due to excess calories; Z68.41 Body mass index [BMI] 40.0-44.9, adult; J45.909 Unspecified asthma, uncomplicated; G43.909 Migraine, unspecified, not intractable, without status migrainosus; R42 Dizziness and giddiness; R79.89 Other specified abnormal findings of blood chemistry; Z79.899 Other long term (current) drug therapy; Z88.5 Allergy status to narcotic agent; Z98.51 Tubal ligation status; Z98.890 Other specified postprocedural states
CPT/HCPCS: 58558; 81025; 88305; J1100; J2250; J2405; J2704; J3010

== ENCOUNTER → 2023-10-24 12:24 | Outpatient (BNV) | payer OTHER, SELFPAY | PROVIDERS: PCP Internal Medicine; Visit Provider Obstetrics & Gynecology | DX: N84.0 Polyp of corpus uteri (principal); N93.9 Abnormal uterine and vaginal bleeding, unspecified | CPT/HCPCS: 58558 ==

== ENCOUNTER 2023-10-26 08:34 | Outpatient (AMB) | payer OTHER, SELFPAY ==
--- NOTE | 2023-10-26 08:44 | A.OFFVIS_ITS ---
Vital Signs 10/26/23 08:45 Height 5 ft 1 in Weight 217 lb 0.016 oz BMI 41.0 Pulse 82 Intake Visit Reasons: excision of recurrent chest wall sebaceous cyst Intake Note: Patient is seen in office for post op assessment post excision of recurrent chest wall sebaceous cyst. Pt c/o: healing as expected off proc Optometrist/Practice Owner Required: No Accompanied by: Self / Same As Patient Allergies oxycodone [OXYCODONE] Allergy (Intermediate, Verified 10/26/23 08:44) RASH,SHAKES, shakiness, body shaking, tremors HPI Comments Details: Patient presents for follow-up. She has no wound issues or complaints. Pathology is benign. 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 Family history of von Willebrand disease Closed right ankle fracture Epidermal inclusion cyst Remove/insert IUD Kidney stone Ovarian cyst Ureteral stone Memory deficit Acute pain Pain management Knee swelling Knee injury Acute sinusitis Elevated LFTs Impaired fasting glucose Postsurgical hypothyroidism Benign essential hypertension COVID-19 vaccine administered Obesity Pericardial effusion Hypercholesterolemia History of thyroid cancer Vitamin D deficiency Patellar fracture Lumbar disc herniation History of renal calculi Hypothyroid Vertigo Migraine Asthma Surgical History S/P left knee arthroscopy S/P removal of left ovary Hx of arthroscopy of left knee Hx of tubal ligation History of pubovaginal sling Hx of cystoscopy History of ankle surgery History of cholecystectomy History of bladder surgery History of thyroid surgery History of back surgery History of section Family History Daughter Von Willebrand disease Maternal Grandmother Family history of bladder cancer Family history of breast cancer Sister Family history of breast cancer Maternal Grandfather Family history of lung cancer Other Asthma Diabetes Emphysema of lung Social History Household Members: Family and Children Housing: House Do you presently have visiting nurse or other home services: No Alcohol intake: never Comment: medicated, see MAR Patient Tobacco Use Status: Never used Tobacco e-Cigarette/Vaping Use: Never Used Second Hand Smoke Exposure: No service: No Current occupational status: employed 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 Cognitive needs: No Hearing needs: No Vision needs: No Female Reproductive History Menstrual Age of Menarche: 14 Physical Exam Vital Signs: Last Vital Signs Pulse 82 10/26/23 08:45 BMI result Body Mass Index 41.0 Chest Other: Right inframammary incision wound is well healed. Assessment & Plan Assessment & Plan (1) Mass of chest wall, right: Comment: inframammary area Code(s): R22.2 - Localized swelling, mass and lump, trunk Category: Surgical (2) Sebaceous cyst: Code(s): L72.3 - Sebaceous cyst Category: Surgical (3) Postop check: Code(s): Z09 - Encounter for follow-up examination after completed treatment for conditio ns other than malignant neoplasm Category: Surgical Plan Patient has been given local instructions, and will otherwise follow-up p.r.n.. All questions answered. Medications: New hydrocodone-acetaminophen 5-325 mg Partial Fill upon patient request. 1 tab PO Q4-6H 30 tabs 0RF pain Coding Level of Care Code Global (07388) Diagnoses Mass of chest wall, right R22.2 Sebaceous cyst L72.3 Postop check Z09
[2023-10-26 08:45] VITALS: PULSE 82; BMI 41.0
== END 2023-10-26 09:02 | disposition home or self-care (01) ==
PROVIDERS: PCP Internal Medicine; Visit Provider Surgery
DX: R22.2 Localized swelling, mass and lump, trunk (principal); L72.3 Sebaceous cyst; Z09 Encounter for follow-up examination after completed treatment for conditions other than malignant neoplasm
CPT/HCPCS: 99024

== ENCOUNTER → 2023-10-26 08:34 | Outpatient (BNVA) | payer OTHER, SELFPAY | PROVIDERS: PCP Internal Medicine; Visit Provider Surgery | DX: Z09 Encounter for follow-up examination after completed treatment for conditions other than malignant neoplasm (principal); R22.2 Localized swelling, mass and lump, trunk; L72.3 Sebaceous cyst; M23.307 Other meniscus derangements, unspecified meniscus, left knee; M25.562 Pain in left knee; G89.29 Other chronic pain | CPT/HCPCS: 99212 ==

== ENCOUNTER 2023-10-26 11:22 | Outpatient (AMB) | payer OTHER, SELFPAY ==
--- NOTE | 2023-10-26 11:19 | A.OFFVIS_ITS ---
Intake Visit Reasons: s/p PRP left knee Allergies oxycodone [OXYCODONE] Allergy (Intermediate, Verified 10/26/23 08:44) RASH,SHAKES, shakiness, body shaking, tremors HPI HPI s/p PRP left knee: Details: 48-year-old female who presents to the office for status post PRP left knee The patient reports 25% relief following the procedure so far. She still continues to have sharp shooting pains and twisting of the knee with [id number] rubbing at times. She is taking Tylenol and Motrin to help with the pain. She is not interested in undergoing any repeat surgery for the knee at this time. 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 Family history of von Willebrand disease Closed right ankle fracture Epidermal inclusion cyst Remove/insert IUD Kidney stone Ovarian cyst Ureteral stone Memory deficit Acute pain Pain management Knee swelling Knee injury Acute sinusitis Elevated LFTs Impaired fasting glucose Postsurgical hypothyroidism Benign essential hypertension COVID-19 vaccine administered Obesity Pericardial effusion Hypercholesterolemia History of thyroid cancer Vitamin D deficiency Patellar fracture Lumbar disc herniation History of renal calculi Hypothyroid Vertigo Migraine Asthma Surgical History S/P left knee arthroscopy S/P removal of left ovary Hx of arthroscopy of left knee Hx of tubal ligation History of pubovaginal sling Hx of cystoscopy History of ankle surgery History of cholecystectomy History of bladder surgery History of thyroid surgery History of back surgery History of section Family History Daughter Von Willebrand disease Maternal Grandmother Family history of bladder cancer Family history of breast cancer Sister Family history of breast cancer Maternal Grandfather Family history of lung cancer Other Asthma Diabetes Emphysema of lung Social History Household Members: Family and Children Housing: House Do you presently have visiting nurse or other home services: No Alcohol intake: never Comment: medicated, see MAR Patient Tobacco Use Status: Never used Tobacco e-Cigarette/Vaping Use: Never Used Second Hand Smoke Exposure: No service: No Current occupational status: employed 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 Cognitive needs: No Hearing needs: No Vision needs: No Female Reproductive History Menstrual Age of Menarche: 14 Review of Systems Const All systems reviewed & are unremarkable except as noted in HPI and below Telehealth Telehealth [facility] Location of provider rendering services: practice address Location of patient: address on file Patient Identification confirmed using: Name, : Yes Telehealth method: video Patient verbally consented to treatment: Yes Patient verbally consented to billing insurance company: Yes Patient informed of any privacy concerns related to visit: Yes Minutes spent on Phone/Video with Pt.: 11 Results Reviewed Results Reviewed: No imaging is available for review Assessment & Plan Assessment & Plan (1) Meniscus degeneration: Code(s): M23.309 - Other meniscus derangements, unspecified meniscus, unspecified knee Category: Medical Qualifiers: Laterality: left Qualified Code(s): M23.307 - Other meniscus derangements, unspecified meniscus, left knee (2) Left knee pain: Code(s): M25.562 - Pain in left knee Category: Medical Qualifiers: Chronicity: chronic Qualified Code(s): M25.562 - Pain in left knee; G89.29 - Other chronic pain Plan Discussed repeating 1-2 rounds of PRP treatment to the affected meniscus in the hopes of gaining increasing returns with time. I informed the patient that PRP response usually takes 6-12 weeks to fully gauge its affect. So we will follow- up in 1 month and see if she is doing any better than she has been so far. I als o counseled her not to combine NSAIDs for pain relief following a PRP injection as she did after the last 1, as this may affect the efficacy of the treatment. Patient is in agreement with the plan. Scribed for Dr. Saldivar by Servando Lagos, medical sales consultant, on 10/26/2023. I, Dr. Saldivar, have personally reviewed and agree with the information entered by the scribe. Coding Level of Care Code Tele Est Pt Level 3 (43473) Diagnoses Degeneration of meniscus of left knee M23.307 Laterality: left Chronic pain of left knee M25.562; G89.29 Chronicity: chronic
== END 2023-10-26 11:23 | disposition home or self-care (01) ==
LOC: HO.PMC 11:22
PROVIDERS: PCP Internal Medicine; Visit Provider Internal Medicine
DX: M23.307 Other meniscus derangements, unspecified meniscus, left knee (principal); M25.562 Pain in left knee; G89.29 Other chronic pain
CPT/HCPCS: 99213

== ENCOUNTER 2023-11-02 08:44 | Day surgery (SDC) | payer OTHER, SELFPAY ==
--- NOTE | 2023-10-31 15:25 | HO.ANESPROP2 ---
Documented by User: Kristy Hawley NP 10/31/23 15:25 HPI - Anesthesia Eval Consult details Narrative: 48yo F for Colonoscopy s/p D&C Hyst 10/24/23 with GA-LMA 4 s/p EGD 09/27/23 with TIVA PMFSH Active Problems Active Problems: All Active Problems Postop check (Acute) Sebaceous cyst (Acute) Malpositioned IUD (Acute) Mass of chest wall, right (Acute) Annual physical exam (Acute) Left knee pain (Acute) Meniscus degeneration (Acute) Unspecified nonpsychotic mental disorder (Acute) Morbid obesity (Acute) GERD (gastroesophageal reflux disease) (Acute) Asthma (Acute) Pre-op examination (Acute) Osteoarthritis of right patellofemoral joint (Acute) Hemorrhagic cyst of ovary (Acute) Dysphagia (Acute) Bile salt-induced diarrhea (Acute) Abnormal uterine bleeding (Acute) Fatty liver (Acute) Adenoma of right adrenal gland (Acute) Complex ovarian cyst (Acute) Hydronephrosis (Acute) Headache (Acute) Osteoarthritis of left knee (Acute) Migraine (Acute) Nephrolithiasis (Acute) Impaired fasting glucose (Acute) Postsurgical hypothyroidism (Acute) Benign essential hypertension (Acute) Obesity (Acute) Hypercholesterolemia (Acute) History of thyroid cancer (Acute) Vitamin D deficiency (Acute) Past Medical History Medical History Malpositioned IUD Meniscus degeneration Left knee pain Morbid obesity Well woman exam Gastroenteritis Internal derangement of right knee Preop exam for internal medicine Bilateral ovarian cysts Right lower quadrant pain Right flank pain Anserine bursitis COVID-19 virus infection Dawson angioma Shoulder pain, left Asthma exacerbation 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 Family history of von Willebrand disease Closed right ankle fracture Epidermal inclusion cyst Remove/insert IUD Kidney stone Ovarian cyst Ureteral stone Memory deficit Acute pain Pain management Knee swelling Knee injury Acute sinusitis Elevated LFTs Impaired fasting glucose Postsurgical hypothyroidism Benign essential hypertension COVID-19 vaccine administered Obesity Pericardial effusion Hypercholesterolemia History of thyroid cancer Vitamin D deficiency Patellar fracture Lumbar disc herniation History of renal calculi Hypothyroid Vertigo Migraine Asthma Family History Family History Daughter Von Willebrand disease Maternal Grandmother Family history of bladder cancer Family history of breast cancer Sister Family history of breast cancer Maternal Grandfather Family history of lung cancer Other Asthma Diabetes Emphysema of lung Family history of problems with anesthesia: No Surgical History Surgical History S/P left knee arthroscopy S/P removal of left ovary Hx of arthroscopy of left knee Hx of tubal ligation History of pubovaginal sling Hx of cystoscopy History of ankle surgery History of cholecystectomy History of bladder surgery History of thyroid surgery History of back surgery History of section History of Problems with Anesthesia: No Social History Social History Household Members: Family and Children Housing: House Do you presently have visiting nurse or other home services: No Alcohol intake: never Comment: medicated, see MAR Patient Tobacco Use Status: Never used Tobacco e-Cigarette/Vaping Use: Never Used Second Hand Smoke Exposure: No Use of substances other than those prescribed or required for medical reasons: No Are you DNR?: No Advance Directives: No Advance Directives Information Provided: Yes service: No Current occupational status: employed 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 Cognitive needs: No Hearing needs: No Vision needs: No Meds Allergies Allergy/AdvReac Type Severity Reaction Status Date / Time oxycodone [OXYCODONE] Allergy Intermediate RASH,SHAKES, Verified 11/02/23 09:43 shakiness, body shaking, tremors Home Medications ?Medication ?Instructions ?Recorded ?Confirmed ?Last Taken ?Type levothyroxine 300 mcg tablet 300 mcg PO DAILY 07/29/23 11/02/23 09/26/23 History Exam Pertinent Lab Results Pertinent Lab Results: Laboratory Tests 10/10/23 10/14/23 23:54 13:05 WBC 9.8 Hgb 13.0 Hct 38.2 Plt Count 281 Sodium 139 Potassium 3.3 Chloride 107 Carbon Dioxide 22 BUN 18 H Creatinine 0.55 Narrative Narrative: EKG 07/2023 Vent. Rate : 087 BPM Atrial Rate : 087 BPM P-R Int : 146 ms QRS Dur : 084 ms QT Int : 350 ms P-R-T Axes : 042 007 034 degrees QTc Int : 421 ms Normal sinus rhythm Normal ECG When compared with ECG of 10-SEP-2020 15:17, No significant change was found Assessment and Plan Assessment Anesthesia Assessment: Chart Reviewed Final Anesthetic Review Family History of Problems with Anesthesia: No History of Problems with Anesthesia: No Documented by User: Asad Bashir MD 11/02/23 09:48 [facility] Past Medical History Medical History Malpositioned IUD Meniscus degeneration Left knee pain Morbid obesity Well woman exam Gastroenteritis Internal derangement of right knee Preop exam for internal medicine Bilateral ovarian cysts Right lower quadrant pain Right flank pain Anserine bursitis COVID-19 virus infection Dawson angioma Shoulder pain, left Asthma exacerbation 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 Family history of von Willebrand disease Closed right ankle fracture Epidermal inclusion cyst Remove/insert IUD Kidney stone Ovarian cyst Ureteral stone Memory deficit Acute pain Pain management Knee swelling Knee injury Acute sinusitis Elevated LFTs Impaired fasting glucose Postsurgical hypothyroidism Benign essential hypertension COVID-19 vaccine administered Obesity Pericardial effusion Hypercholesterolemia History of thyroid cancer Vitamin D deficiency Patellar fracture Lumbar disc herniation History of renal calculi Hypothyroid Vertigo Migraine Asthma Family History Family History Daughter Von Willebrand disease Maternal Grandmother Family history of bladder cancer Family history of breast cancer Sister Family history of breast cancer Maternal Grandfather Family history of lung cancer Other Asthma Diabetes Emphysema of lung Surgical History Surgical History S/P left knee arthroscopy S/P removal of left ovary Hx of arthroscopy of left knee Hx of tubal ligation History of pubovaginal sling Hx of cystoscopy History of ankle surgery History of cholecystectomy History of bladder surgery History of thyroid surgery History of back surgery History of section Social History Social History Household Members: Family and Children Housing: House Do you presently have visiting nurse or other home services: No Alcohol intake: never Comment: medicated, see MAR Patient Tobacco Use Status: Never used Tobacco e-Cigarette/Vaping Use: Never Used Second Hand Smoke Exposure: No Use of substances other than those prescribed or required for medical reasons: No Are you DNR?: No Advance Directives: No Advance Directives Information Provided: Yes service: No Current occupational status: employed 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 Cognitive needs: No Hearing needs: No Vision needs: No Meds Allergies Allergy/AdvReac Type Severity Reaction Status Date / Time oxycodone [OXYCODONE] Allergy Intermediate RASH,SHAKES, Verified 11/02/23 09:43 shakiness, body shaking, tremors Home Medications ?Medication ?Instructions ?Recorded ?Confirmed ?Last Taken ?Type levothyroxine 300 mcg tablet 300 mcg PO DAILY 07/29/23 11/02/23 09/26/23 History Exam Airway Mallampati Class: III TM Dist: >3cm Neck ROM: Full Denture: Upper and Lower Assessment and Plan Assessment Anesthesia Assessment: Anesthesia Plan Discussed Final Anesthetic Review NPO: Yes ASA Class: III Final Preanesthetic Review: No Changes in Pt Med Stat, Meds/Allgs Chart Reviewed, Consent Obtained/Reviewed and Anes Risks/Benef Reviewed Patient Risk: Intermediate Procedure Risk: Low Anesthetic Plan Anesthetic Plan: TIVA Disposition: Standard PACU
[2023-11-02 09:27] VITALS: BMI 40.8
[2023-11-02 09:40] VITALS: BP 147/83; PULSE 86; RESP 16; TEMP 36.6; O2SAT 100
--- NOTE | 2023-11-02 09:47 | MHC.SHP ---
Pre-Procedural Eval Section A - 24 Hr Update-Section A only Date of Service: 11/02/23 Section B - Complete if H&P > 30 days Chief Complaint: Encounter for screening for malignant neoplasm of Relevant Family History (Specify if Yes): No Relevant Social History: None Present Medications: see Short Stay Collaborative assessment Medical History: Significant History (Malpositioned IUD Meniscus degeneration Left knee pain Morbid obesity Well woman exam Gastroenteritis Internal derangement of right knee Preop exam for internal medicine Bilateral ovarian cysts Right lower quadrant pain Right flank pain Anserine bursitis COVID-19 virus infection Dawson angioma Shoul) History of Previous Operations: Relevant previous surgery/procedure and date(s) (S/P left knee arthroscopy S/P removal of left ovary Hx of arthroscopy of left knee Hx of tubal ligation History of pubovaginal sling Hx of cystoscopy History of ankle surgery History of cholecystectomy History of bladder surgery History of thyroid surgery History of back surgery History of ) Allergies: Allergies Allergy/AdvReac Type Severity Reaction Status Date / Time oxycodone [OXYCODONE] Allergy Intermediate RASH,SHAKES, Verified 11/02/23 09:43 shakiness, body shaking, tremors Review of Systems Sugical H&P ROS: Negative: Constitution, Cardiovascular, Respiratory, Neurological, Psychiatric, Hem-Onc, Allergic/Immunologic, Gastrointestinal, Genitourinary, Musculoskeletal, Integumentary, Endocrine and Eyes/Ears/Nose/Throat Exam Surgical H&P Exam: Normal: HEENT, Normal: Heart, Normal: Lungs, Normal: Extremities, Normal: Abdomen, Normal: Skin and Normal: Neurological Plan Diagnosis/Plan: Unchanged I have reviewed the history and physical and performed a pertinent physical examination on my patient. No changes have occurred unless specified. Time Spent With Patient Time: Total time managing care of this patient today ____ minutes.
[2023-11-02] MEDS: Lactated Ringers 1,000 ML 100 ML IVCONT (09:54)
--- NOTE | 2023-11-02 10:30 | P.OPN-COLO_ITS ---
Colonoscopy Operative Note Operative Note Date of Service: 11/02/23 Narrative: Operative Information Procedure Description: Colonoscopy Indication: screening Anesthesia: MAC COLONOSCOPY Instrument: Olympus variable stiffness pediatric scope 190L Colonoscopy Monitoring: Vital signs and clinical assessment, continuous EKG monitoring, Pulse oximetry, Carbon Dioxide monitoring and blood pressure monitoring were done throughout the procedure. Colon withdrawal time was 24 minutes. Procedure: The patient was placed in the left lateral decubitis position and pre-procedure medications were administered. After a digital rectal examination of the ano-rectum, the video colonoscope was inserted into the rectum and advanced through the colon to the cecum/TI. The colonoscope was slowly withdrawn in a retrograde panoramic fashion and the colon mucosa was carefully examined including a retroflexed view of the rectum. Findings and interventions are described below. Procedure Difficulty: easy Findings: Terminal Ileum-normal Cecum:normal Ascending Colon: x1 sessile polyp 6-8 mm removed with cold snare and x1 sessile polyp 4 mm removed with cold forceps Transverse Colon -normal Descending Colon:normal Sigmoid Colon: at 40 cm from anal verge, overlying a tic a 10 mm macerated polyp,lifted with eleview injection and removed with cold snare with 2 clips applied. Moderate diverticulosis. Rectum: Retroflexion with small internal hemorrhoids seen, grade I, 6-7 mm s essile polyp removed with cold snare Anorectum - normal Intervention: cold snare, cold forceps, eleview injection, clips Colon preparation: [place] Bowel Preparation Scale Right colon; 2 Transverse colon: 2 Left colon; 2 (0 = Unprepared colon segment with mucosa not seen due to solid stool that cannot be cleared. 1 = Portion of mucosa of the colon segment seen, but other areas of the colon segment not well seen due to staining, residual stool and/or opaque liquid. 2 = Minor amount of residual staining, small fragments of stool and/or opaque liquid, but mucosa of colon segment seen well. 3 = Entire mucosa of colon segment seen well with no residual staining, small fragments of stool or opaque liquid) Impression and Post Procedure Diagnosis: diverticulosis colon polyps internal hemorrhoids Plan: High fiber diet leaflet Avoid straining at stool, epsom salts and sitz bath, anusol supps or cream Repeat Colonoscopy in 1-2 years due to polyps or earlier if clinically indicated Above findings were reviewed with the patient and relevant handouts were provided if indicated.
[2023-11-02 10:35] VITALS: BP 116/70; PULSE 76; RESP 14; TEMP 36.3; O2SAT 98
[2023-11-02 10:50] VITALS: BP 129/81; PULSE 81; RESP 18; TEMP 36.9; O2SAT 100
== END 2023-11-02 11:22 | disposition home or self-care (01) ==
PROVIDERS: PCP Internal Medicine; Visit Provider Internal Medicine Gastroenterology
PROC: 0DJD8ZZ Inspection of Lower Intestinal Tract, Via Natural or Artificial Opening Endoscopic (ICD-10-PCS; CPT 45378; principal; 2023-11-02 10:50)
DX: Z12.11 Encounter for screening for malignant neoplasm of colon (principal); D12.2 Benign neoplasm of ascending colon; K51.40 Inflammatory polyps of colon without complications; K63.5 Polyp of colon; K57.30 Diverticulosis of large intestine without perforation or abscess without bleeding; K64.0 First degree hemorrhoids; K21.9 Gastro-esophageal reflux disease without esophagitis; I10 Essential (primary) hypertension; E78.00 Pure hypercholesterolemia, unspecified; E66.01 Morbid (severe) obesity due to excess calories; Z68.41 Body mass index [BMI] 40.0-44.9, adult; J45.909 Unspecified asthma, uncomplicated; E03.9 Hypothyroidism, unspecified; Z88.5 Allergy status to narcotic agent; Z85.850 Personal history of malignant neoplasm of thyroid
CPT/HCPCS: 45385; 45380; 45381; 88305; J2704

== ENCOUNTER → 2023-11-02 08:44 | Outpatient (BNV) | payer OTHER, SELFPAY | PROVIDERS: PCP Internal Medicine; Visit Provider Internal Medicine Gastroenterology | DX: Z12.11 Encounter for screening for malignant neoplasm of colon (principal); D12.2 Benign neoplasm of ascending colon; K63.5 Polyp of colon; K57.30 Diverticulosis of large intestine without perforation or abscess without bleeding; K64.0 First degree hemorrhoids; K62.1 Rectal polyp | CPT/HCPCS: 45380; 45381; 45385 ==

== ENCOUNTER 2023-11-10 12:51 | Outpatient (AMB) | payer OTHER, SELFPAY ==
--- NOTE | 2023-11-10 12:52 | A.OFFVIS_ITS ---
Intake Visit Reasons: post op Allergies oxycodone [OXYCODONE] Allergy (Intermediate, Verified 11/10/23 12:53) RASH,SHAKES, shakiness, body shaking, tremors HPI Comments Details: The patient is presenting post hysteroscopy D and C/polypectomy for follow-up to discuss the results of her abnormal uterine bleeding workup and options of treatment. The following workup was done.: H&H=13/38.2 TSH, hCG, GC and chlamydia were negative. Hysteroscopy: Endometrial polyp status post D&C and polypectomy, the pathology showed the following: A. Endometrium, polypectomy: Fragments of benign endometrium with features of endometrial polyp; few fragments of benign smooth muscle; no atypia identified. B. Endometrium, curettage: Inactive endometrium; negative for atypia or hyperplasia Co testing was done in 04/19 was negative. Mammogram was in 06/18 was BI-RADS 3, the recommendation was to repeat in 6 months Pelvic ultrasound showed the following done on 10/11, the report is still not available The patient has been using Lysteda 650 mg 2 tablets p.o. t.i.d. 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 Family history of von Willebrand disease Closed right ankle fracture Epidermal inclusion cyst Remove/insert IUD Kidney stone Ovarian cyst Ureteral stone Memory deficit Acute pain Pain management Knee swelling Knee injury Acute sinusitis Elevated LFTs Impaired fasting glucose Postsurgical hypothyroidism Benign essential hypertension COVID-19 vaccine administered Obesity Pericardial effusion Hypercholesterolemia History of thyroid cancer Vitamin D deficiency Patellar fracture Lumbar disc herniation History of renal calculi Hypothyroid Vertigo Migraine Asthma Surgical History S/P left knee arthroscopy S/P removal of left ovary Hx of arthroscopy of left knee Hx of tubal ligation History of pubovaginal sling Hx of cystoscopy History of ankle surgery History of cholecystectomy History of bladder surgery History of thyroid surgery History of back surgery History of section Family History Daughter Von Willebrand disease Maternal Grandmother Family history of bladder cancer Family history of breast cancer Sister Family history of breast cancer Maternal Grandfather Family history of lung cancer Other Asthma Diabetes Emphysema of lung Social History Household Members: Family and Children Housing: House Do you presently have visiting nurse or other home services: No Alcohol intake: never Comment: medicated, see MAR Patient Tobacco Use Status: Never used Tobacco e-Cigarette/Vaping Use: Never Used Second Hand Smoke Exposure: No service: No Current occupational status: employed 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 Cognitive needs: No Hearing needs: No Vision needs: No Female Reproductive History Menstrual Age of Menarche: 14 Review of Systems Const All systems reviewed & are unremarkable except as noted in HPI and below Reports as per HPI and Reports no additional complaints GI Reports no additional complaints Reports no additional complaints Assessment & Plan Assessment & Plan (1) Abnormal uterine bleeding: Comment: Migraine 09/18 BI-RADS 3 on mammogram Code(s): N93.9 - Abnormal uterine and vaginal bleeding, unspecified Category: Medical Plan: Discussed with the patient the results of the work up done and options of treatment including Lysteda,endometrial ablation and hysterectomy. All pros, cons, risks and benefits if each option was discussed with the patient and the patient decided to stay on Lysteda , so a more detailed discussion re: Lysteda including mechanism of action, benefits, risks including but not limited to thrombosis and strokes, Instructions were given on keep using Lysteda as directed 2 tablets p.o. 3 times a day day 1 up to 3-5 days of menses and to schedule a 3 weeks ultrasound follow-up appointment to discuss the results. The patient verbalized understanding and agreed with the plan. Medications: Discontinued medroxyprogesterone (Provera) start Provera 1 tablet daily Discontinued Reason: Doctor's Order 10 mg PO DAILY 90 days 90 tabs 0RF Coding Level of Care Code Est Pt Level 3 (81976) Diagnoses Abnormal uterine bleeding N93.9
== END 2023-11-10 13:51 | disposition home or self-care (01) ==
PROVIDERS: PCP Internal Medicine; Visit Provider Obstetrics & Gynecology
DX: N93.9 Abnormal uterine and vaginal bleeding, unspecified (principal)
CPT/HCPCS: 99213

== ENCOUNTER → 2023-11-10 12:51 | Outpatient (BNVA) | payer OTHER, SELFPAY | PROVIDERS: PCP Internal Medicine; Visit Provider Obstetrics & Gynecology | DX: N93.9 Abnormal uterine and vaginal bleeding, unspecified (principal); Z98.890 Other specified postprocedural states | CPT/HCPCS: 99212 ==

== ENCOUNTER 2023-11-23 07:36 | Outpatient (AMB) | payer OTHER, SELFPAY ==
[2023-11-23 07:41] VITALS: BP 137/85; PULSE 79
--- NOTE | 2023-11-23 07:41 | MHC.OFFVIS ---
Vital Signs 11/23/23 07:41 Weight 213 lb BP 137/85 Blood Pressure Location Rt brachial Position Sitting Pulse 79 Intake Visit Reasons: abscess wound possible infection Intake Note: Patient scheduled today's appointment concerned with wound infection on Rt lower breast. Hx of excision on 10-18-23. Patient c/o: pain, tenderness to touch, unable to wear bra. Copper Tapper Required: No Accompanied by: Self / Same As Patient Allergies oxycodone [OXYCODONE] Allergy (Intermediate, Verified 11/23/23 07:43) RASH,SHAKES, shakiness, body shaking, tremors HPI Comments Details: Patient presents for follow-up. She has some discomfort and discharge from the lateral aspect of her incision. 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 Family history of von Willebrand disease Closed right ankle fracture Epidermal inclusion cyst Remove/insert IUD Kidney stone Ovarian cyst Ureteral stone Memory deficit Acute pain Pain management Knee swelling Knee injury Acute sinusitis Elevated LFTs Impaired fasting glucose Postsurgical hypothyroidism Benign essential hypertension COVID-19 vaccine administered Obesity Pericardial effusion Hypercholesterolemia History of thyroid cancer Vitamin D deficiency Patellar fracture Lumbar disc herniation History of renal calculi Hypothyroid Vertigo Migraine Asthma Surgical History S/P left knee arthroscopy S/P removal of left ovary Hx of arthroscopy of left knee Hx of tubal ligation History of pubovaginal sling Hx of cystoscopy History of ankle surgery History of cholecystectomy History of bladder surgery History of thyroid surgery History of back surgery History of section Family History Daughter Von Willebrand disease Maternal Grandmother Family history of bladder cancer Family history of breast cancer Sister Family history of breast cancer Maternal Grandfather Family history of lung cancer Other Asthma Diabetes Emphysema of lung Social History Household Members: Family and Children Housing: House Do you presently have visiting nurse or other home services: No Alcohol intake: never Comment: medicated, see MAR Patient Tobacco Use Status: Never used Tobacco e-Cigarette/Vaping Use: Never Used Second Hand Smoke Exposure: No service: No Current occupational status: employed 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 Cognitive needs: No Hearing needs: No Vision needs: No Female Reproductive History Menstrual Age of Menarche: 14 Physical Exam Vital Signs: Last Vital Signs Pulse 79 11/23/23 07:41 BP 137/85 11/23/23 07:41 Chest Other: Patient was extruding and suture from the lateral aspect of her incision. This was uneventfully removed. Bacitracin sterile dressing applied. Well tolerated Assessment & Plan Assessment & Plan (1) Postoperative stitch abscess: Code(s): T81.41XA - Infection following a procedure, superficial incisional surgical site, initial encounter Category: Surgical Plan Patient has been given local instructions including bacitracin each day with a Band-Aid and will otherwise follow-up p.r.n.. All questions answered. Coding Level of Care Code Global (28387) Diagnoses Postoperative stitch abscess T81.41XA
== END 2023-11-23 07:47 | disposition home or self-care (01) ==
PROVIDERS: PCP Internal Medicine; Visit Provider Surgery
DX: T81.41XA Infection following a procedure, superficial incisional surgical site, initial encounter (principal)
CPT/HCPCS: 99024

== ENCOUNTER → 2023-11-23 07:36 | Outpatient (BNVA) | payer OTHER, SELFPAY | PROVIDERS: PCP Internal Medicine; Visit Provider Surgery | DX: D25.9 Leiomyoma of uterus, unspecified (principal); T81.41XD Infection following a procedure, superficial incisional surgical site, subsequent encounter; X58.XXXD Exposure to other specified factors, subsequent encounter | CPT/HCPCS: 99212 ==

== ENCOUNTER 2023-11-23 07:54 | Outpatient (AMB) | payer OTHER, SELFPAY ==
--- NOTE | 2023-11-23 07:55 | A.OFFVIS_ITS ---
Intake Visit Reasons: u/s results Allergies oxycodone [OXYCODONE] Allergy (Intermediate, Verified 11/23/23 07:43) RASH,SHAKES, shakiness, body shaking, tremors HPI Comments Details: The patient is scheduled tele health visit to discuss the results the pelvic ultrasound which showed the following: Uterus is anteverted and measures 10.6 x 5.6 x 7.3 cm, volume 225.1 mL. 1.1 x 1.0 x 0.8 cm, 2.9 x 2.4 x 3.2 cm, and 1.3 x 0.8 x 0.9 cm uterine masses were not identified on the previous exam and are characteristic of fibroids. Left ovary not visualized. No significant free fluid. Right ovary measures 3.0 x 1.8 x 2.2 cm, volume is 0.2 mL and is unremarkable. Endometrium appears heterogeneous with thickness of 10 mm. Multiple nabothian cysts in the cervix. [facility] Medical History Malpositioned IUD Meniscus degeneration Left knee pain Morbid obesity Well woman exam Gastroenteritis Internal derangement of right knee Preop exam for internal medicine Bilateral ovarian cysts Right lower quadrant pain Right flank pain Anserine bursitis COVID-19 virus infection Dawson angioma Shoulder pain, left Asthma exacerbation 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 Family history of von Willebrand disease Closed right ankle fracture Epidermal inclusion cyst Remove/insert IUD Kidney stone Ovarian cyst Ureteral stone Memory deficit Acute pain Pain management Knee swelling Knee injury Acute sinusitis Elevated LFTs Impaired fasting glucose Postsurgical hypothyroidism Benign essential hypertension COVID-19 vaccine administered Obesity Pericardial effusion Hypercholesterolemia History of thyroid cancer Vitamin D deficiency Patellar fracture Lumbar disc herniation History of renal calculi Hypothyroid Vertigo Migraine Asthma Surgical History S/P left knee arthroscopy S/P removal of left ovary Hx of arthroscopy of left knee Hx of tubal ligation History of pubovaginal sling Hx of cystoscopy History of ankle surgery History of cholecystectomy History of bladder surgery History of thyroid surgery History of back surgery History of section Family History Daughter Von Willebrand disease Maternal Grandmother Family history of bladder cancer Family history of breast cancer Sister Family history of breast cancer Maternal Grandfather Family history of lung cancer Other Asthma Diabetes Emphysema of lung Social History Household Members: Family and Children Housing: House Do you presently have visiting nurse or other home services: No Alcohol intake: never Comment: medicated, see MAR Patient Tobacco Use Status: Never used Tobacco e-Cigarette/Vaping Use: Never Used Second Hand Smoke Exposure: No service: No Current occupational status: employed 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 Cognitive needs: No Hearing needs: No Vision needs: No Female Reproductive History Menstrual Age of Menarche: 14 Review of Systems Const All systems reviewed & are unremarkable except as noted in HPI and below Reports as per HPI and Reports no additional complaints GI Reports no additional complaints Reports no additional complaints Telehealth Telehealth Telehealth Platform: Telephone Location of provider rendering services: practice address Location of patient: address on file Patient Identification confirmed using: Name, : Yes Telehealth method: video Patient verbally consented to treatment: Yes Patient verbally consented to billing insurance company: Yes Patient informed of any privacy concerns related to visit: Yes Assessment & Plan Assessment & Plan (1) Uterine myoma: Code(s): D25.9 - Leiomyoma of uterus, unspecified Category: Medical Plan: Discussed with the patient the findings on pelvic ultrasound & the risk of myosarcoma; discussed with the patient the options of treatment including expectant management versus hysterectomy; the pros and cons, risks benefits of each approach were discussed with the patient including the fact that in cases of myosarcoma, surgical treatment can lead to early diagnosis and positively affects the prognosis; after further discussion, the patient decided to proceed with expectant management. Will repeat pelvic ultrasound periodically. Instructions given to patient to call in case any of the following occurs: p ressure symptoms, abnormal uterine bleeding, pelvic pain; and to schedule a six- months pelvic ultrasound and a follow-up appointment . All questions answered, the patient verbalized understanding and agreed with the plan . I spent a total of 20 minutes reviewing the chart, talking to the patient via video and documenting in the medical record. Orders: Orders US pelvic and transvaginal 6 Months D25.9 - Leiomyoma of uterus, unspecified Coding Level of Care Code Tele Est Pt Level 1 (02507) Diagnoses Uterine myoma D25.9
== END 2023-11-23 10:20 | disposition home or self-care (01) ==
LOC: HO.HWS 07:54
PROVIDERS: PCP Internal Medicine; Visit Provider Obstetrics & Gynecology
DX: D25.9 Leiomyoma of uterus, unspecified (principal)
CPT/HCPCS: 99211

== ENCOUNTER → 2023-11-24 11:34 | Outpatient (RCR) | payer OTHER, SELFPAY ==
[2020-06-03 14:25] VITALS: BP 141/77; PULSE 74; RESP 18; TEMP 36.4; O2SAT 96; BMI 43.0
--- NOTE | 2020-06-03 14:46 | MHC.HEMONC ---
Pt already had test perform in 2019. No need for repeart per Dr Durbin or need for any follow-up appointments.
--- NOTE | 2020-06-03 14:47 | PM.HEMONCCN ---
Subjective - Subjective Chief complaint: Blood test for von Willebrand's disease Patient: new to practice Consult date: 06/03/20 Primary Care Provider: Tamela Pelaez MD HPI - Consult Narrative Reason for consult: Blood test for von Willebrand's disease Narrative: Alicia Jenkins is a 45 year old female who states that her son was diagnosed with von Willebrand's disease and she has been referred for testing. She does not give any problems with easy bruising or bleeding but as a kid she had some heavy menstrual bleeding. This has now resolved. She has had multiple surgical procedures without any problems. 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 Lumbar disc herniation Migraine Obesity Patellar fracture Pericardial effusion Vertigo Vitamin D deficiency Family History: Family History (Last Updated 06/03/20 @ 14:28 by Courtney Garcia RN) Daughter Von Willebrand disease Other Asthma Diabetes Emphysema of lung Family history of bladder cancer Family history of breast cancer Family history of lung cancer Family history of prostate cancer Surgical History: Surgical History (Last Updated 06/03/20 @ 14:27 by Courtney Garcia RN) History of ankle surgery History of back surgery History of bladder surgery History of section History of cholecystectomy History of thyroid surgery Social History: Social History (Last Updated 06/03/20 @ 14:28 by Courtney Garcia RN) Alcohol History: Alcohol intake: never Tobacco History: Smoking Status: Never smoker Substance Use History: Use of substances other than those prescribed or required for medical reasons: No Smoking status: Never smoker Home Medications and Allergies Home Medications Medication Instructions Recorded Confirmed Type albuterol sulfate 90 mcg/actuation 2 puff INHALATION Q4-6H PRN 01/03/20 01/09/20 History aerosol inhaler qtevkoevcs-erjurjotxukyv-dnclcymq 1 cap PO Q4-6H PRN 01/03/20 01/09/20 History 50 mg-300 mg-40 mg capsule cholecalciferol (vitamin D3) 25 25 mcg PO DAILY 01/03/20 01/09/20 History mcg (1,000 unit) capsule meclizine 25 mg tablet 25 mg PO TID 01/03/20 01/09/20 History levothyroxine 100 mcg capsule 100 mcg PO QAM 05/23/20 History levothyroxine 25 mcg capsule 25 mcg PO QAM 05/23/20 History Allergies Allergy/AdvReac Type Severity Reaction Status Date / Time oxycodone [OXYCODONE] Allergy Intermediate RASH,SHAKES, Verified 06/03/20 14:28 shakiness, body shaking, tremors Physical Exam Vital signs: Vital Signs Temp 97.6 F 06/03/20 14:25 Pulse 74 06/03/20 14:25 Resp 18 06/03/20 14:25 BP 141/77 H 06/03/20 14:25 Pulse Ox 96 06/03/20 14:25 Intake & Output 06/02/20 06/03/20 06/03/20 18:59 06:59 18:59 Other: Weight 106.6 kg [place] Weight in Grams [id number] Weight 106.6 kg - Constitutional Present: no acute distress, average body habitus - Routine HEENT Exam Head: Present: normal inspection Eye: Present: EOMI - Routine Chest/Breast/Axilla Exam Axillae: Absent: lymphadenopathy - Routine Respiratory Exam Absent: respiratory distress Assessment and Plan (1) Family history of von Willebrand disease Status: Acute 1. This is a 45-year-old woman who has a son diagnosed with von Willebrand's disease. Patient does not have any symptoms of excessive bleeding and has undergone multiple surgical procedures without any problems. Patient herself was tested in 2019 and was negative for von Willebrand's disease testing. If her son has the disease, her is probably a carrier. Patient does not need to be tested again. A printout of her results were given to the patient. Thank you.
== END | disposition home or self-care (01) ==
LOC: HO.ONC 06-03 14:14
PROVIDERS: PCP Internal Medicine; Referring Provider Internal Medicine; Visit Provider Internal Medicine
DX: Z83.2 Family history of diseases of the blood and blood-forming organs and certain disorders involving the immune mechanism (principal)
CPT/HCPCS: 99202

== ENCOUNTER 2023-11-29 08:57 | Outpatient (REF) | payer OTHER, SELFPAY ==
[2023-11-29 09:24] LABS: MANUAL DIFF FLAG NO
[2023-11-29 09:38] LABS: Basophils Percent Auto 0.6 % (0-2); Eosinophils Absolute Auto 0.1 X10*3/uL (0.0-0.4); Eosinophils Percent Auto 1.1 % (0-4); Hematocrit 38.7 % (37.0-47.0); Hemoglobin 12.8 g/dl (12.0-16.0); Imm Gran Abs Auto 0.03 X10*3/uL (0.00-0.03); Imm Gran Pct Auto 0.4 % (0.0-0.4); Lymphocytes Absolute Auto 1.9 X10*3/uL (1.2-4.9); Lymphocytes Percent Auto 26.9 % (20-40); Mean Corpuscular HGB Conc 33.1 g/dl (31.0-35.0); Mean Corpuscular Hemoglobin 29.6 pg (27.0-33.0); Mean Corpuscular Volume 89.4 fL (80.0-98.0); Mean Platelet Volume 9.7 fL (9.4-12.3); Monocytes Absolute Auto 0.6 X10*3/uL (0.1-1.2); Monocytes Percent Auto 8.7 % (2-11); Neutrophils Absolute Auto 4.4 x10*3/uL (2.0-8.3); Neutrophils Percent Auto 62.3 % (45-73); Platelet Count 380 X10*3/uL (160-400); Red Blood Count 4.33 X10*6/uL (4.20-5.50); Red Cell Distribution Width 11.9 % (11.0-16.0); White Blood Count 7.1 X10*3/uL (4.8-10.8)
[2023-11-29 09:42] LABS: INTERNATIONAL NORM RATIO 1.1 (0.9-1.1); Prothrombin Time 13.9 SEC (11.1-13.3)
[2023-11-29 09:55] LABS: Estimated Average Glucose 108 mg/dL; Hemoglobin A1c % 5.4 % (<6.0)
[2023-11-29 10:29] LABS: Alanine Aminotransferase 28 U/L (0-31); Albumin Level 4.2 g/dL (3.5-5.0); Alkaline Phosphatase 65 U/L (39-117); Anion Gap 12 (12-20); Aspartate Amino Transferase 19 U/L (5-31); Bilirubin Total 0.7 mg/dL (0.0-1.0); Blood Urea Nitrogen 17 mg/dL (9-16); C Reactive Protein 2.35 mg/dL (< or = 0.50); Calcium 9.3 mg/dL (8.4-10.2); Carbon Dioxide 27 mmol/L (22-29); Chloride 104 mmol/L (96-108); Cholesterol 176 mg/dL (<200); Estimated Glomerular Filt Rate > 60; Glucose Random 106 mg/dL (60-115); HDL Cholesterol 30 mg/dL (>40); Iron 84 mcg/dL (30-160); LDL Cholesterol Calculated 123 mg/dL (<100); Percent Iron Saturation 38 % (15-50); Potassium 4.1 mmol/L (3.3-5.1); Sodium 139 mmol/L (135-145); Total Iron Binding Capacity 222 mcg/dL (228-428); Total Protein 7.2 g/dL (6.5-8.0); Triglycerides 115 mg/dL (<150); Unsaturated Iron Binding 138 ug/dL
[2023-11-29 10:48] LABS: Vitamin B12 500 pg/mL (200-900)
[2023-11-29 10:54] LABS: Ferritin 403 ng/mL (10-250); Insulin 10 uU/mL (2-29); TSH reflex Free T4 0.01 uIU/mL (0.32-4.0); Vitamin D 25-OH Total 45.8 ng/mL (>30)
[2023-11-29 12:23] LABS: Free T4 (Free Thyroxine) 1.36 ng/dL (0.71-1.85)
[2023-12-02 17:48] LABS: Zinc 78 mcg/dL (60-130)
[2023-12-03 00:49] LABS: Vitamin A 31 mcg/dL (38-98)
[2023-12-03 11:24] LABS: Vitamin B1 10 nmol/L (8-30)
== END 2023-11-29 08:58 | disposition home or self-care (01) ==
LOC: HO.LAB 08:57
PROVIDERS: PCP Internal Medicine; Visit Provider Physician Assistant Surgical
DX: Z01.818 Encounter for other preprocedural examination (principal)
CPT/HCPCS: 36415; 80053; 80061; 82306; 82607; 82728; 83036; 83525; 83540; 84425; 84439; 84443; 84590; 84630; 85025; 85610; 85730; 86140

== ENCOUNTER 2023-11-30 09:55 | Outpatient (AMB) | payer OTHER, SELFPAY ==
--- NOTE | 2023-11-30 10:03 | MHC.OFFVIS ---
Vital Signs 11/30/23 10:04 Height 5 ft 1 in BP 125/72 Blood Pressure Location Lt brachial Position Sitting Pulse 70 Pulse Source Pulse Oximeter Pulse Oximetry (%) 100 Oxygen Delivery Method Room Air Intake Visit Reasons: Follow up Knee pain worsening Allergies oxycodone [OXYCODONE] Allergy (Intermediate, Verified 11/23/23 07:43) RASH,SHAKES, shakiness, body shaking, tremors HPI Comments Details: Alicia presents back to the office today for follow-up left knee pain. She reports pain is continually getting worse, rated today as 8/10. Does not feel any improvement after PRP injections. She like to hold off on repeating them at this time Previously she had diagnostic saphenous nerve block which provided 8 hours of 100% pain relief. This was followed by saphenous nerve Sprint which provided temporary relief. This time she would consider surgical interventions. Prior visit with Dr. Saldivar: 48-year-old female who presents to the office for status post PRP left knee The patient reports 25% relief following the procedure so far. She still continues to have sharp shooting pains and twisting of the knee with [id number] rubbing at times. She is taking Tylenol and Motrin to help with the pain. She is not interested in undergoing any repeat surgery for the knee at this time. Past Procedure: 09/22/23: Platelet Rich Plasma Injection: 25% relief PRP Joint Injection Left knee medial meniscus PRP injection Initial visit: Alicia is a very pleasant 47-year-old female who presents to the office today for evaluation and management of her left knee pain. Patient reports that she has been suffering with this pain since April 2021. Prior to this she had injured her knee at work and underwent left knee arthroscopic surgery. She states some pain improvement after surgery but there is some pain laterally that persists. She reports pain is worse with movement and area is tender to palpation. Pain today is rated as a 5/10, constant throughout the day. She has completed physical therapy for his pain that helped some, she continues with home exercise program but the pain does not improve. Currently she is using only topical gel cream for the pain. She has tried Tylenol and Motrin in the past without any improvement. In terms of muscle damage condition is described as aching and throbbing. Pain is negatively impacting patient's intermittent left, general activity, normal work, recreational activities and walking. Patient is also suffering with osteoarthritis of the right knee and new injury to the right knee. She is currently being treated by Orthopedics. She underwent cortisone injection about 4 weeks ago and is scheduled to start physical therapy for her right knee later today. [facility] Medical History Malpositioned IUD Meniscus degeneration Left knee pain Morbid obesity Well woman exam Gastroenteritis Internal derangement of right knee Preop exam for internal medicine Bilateral ovarian cysts Right lower quadrant pain Right flank pain Anserine bursitis COVID-19 virus infection Dawson angioma Shoulder pain, left Asthma exacerbation 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 Family history of von Willebrand disease Closed right ankle fracture Epidermal inclusion cyst Remove/insert IUD Kidney stone Ovarian cyst Ureteral stone Memory deficit Acute pain Pain management Knee swelling Knee injury Acute sinusitis Elevated LFTs Impaired fasting glucose Postsurgical hypothyroidism Benign essential hypertension COVID-19 vaccine administered Obesity Pericardial effusion Hypercholesterolemia History of thyroid cancer Vitamin D deficiency Patellar fracture Lumbar disc herniation History of renal calculi Hypothyroid Vertigo Migraine Asthma Surgical History S/P left knee arthroscopy S/P removal of left ovary Hx of arthroscopy of left knee Hx of tubal ligation History of pubovaginal sling Hx of cystoscopy History of ankle surgery History of cholecystectomy History of bladder surgery History of thyroid surgery History of back surgery History of section Family History Daughter Von Willebrand disease Maternal Grandmother Family history of bladder cancer Family history of breast cancer Sister Family history of breast cancer Maternal Grandfather Family history of lung cancer Other Asthma Diabetes Emphysema of lung Social History Household Members: Family and Children Housing: House Do you presently have visiting nurse or other home services: No Alcohol intake: never Comment: medicated, see MAR Patient Tobacco Use Status: Never used Tobacco e-Cigarette/Vaping Use: Never Used Second Hand Smoke Exposure: No service: No Current occupational status: employed 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 Cognitive needs: No Hearing needs: No Vision needs: No Female Reproductive History Menstrual Age of Menarche: 14 Review of Systems Const All systems reviewed & are unremarkable except as noted in HPI and below Physical Exam Vital Signs: Last Vital Signs Pulse 70 11/30/23 10:04 BP 125/72 11/30/23 10:04 Pulse Ox 100 11/30/23 10:04 Oxygen Delivery Method Room Air 11/30/23 10:04 General: awake, alert, oriented. Answers questions appropriately. Fully engaged in examination. Skin: warm, dry, intact HEENT: Normocephalic. Hearing intact. Cardiac: External chest normal in appearance. Respiratory: No cough, audible wheezing or stridor. Abdomen: without gross distension. MS: No obvious swelling or deformities. Able to transition from sit to stand unassisted. Decreased range of motion left knee Diffuse tenderness to palpation along the medial joint line Neurological: Oriented to person, place, time and situation. Thought process intact. Psychiatric: Appropriate mood and affect. Good judgment and insight. Assessment & Plan Assessment & Plan (1) S/P left knee arthroscopy: Comment: left knee arthroscopy with medial and lateral partial meniscectomy and chondroplasty 05/05/2022 [place] Code(s): Z98.890 - Other specified postprocedural states Category: Surgical (2) Left knee pain: Code(s): M25.562 - Pain in left knee Category: Medical Qualifiers: Chronicity: chronic Qualified Code(s): M25.562 - Pain in left knee; G89.29 - Other chronic pain (3) Meniscus degeneration: Code(s): M23.309 - Other meniscus derangements, unspecified meniscus, unspecified knee Category: Medical Qualifiers: Laterality: left Qualified Code(s): M23.307 - Other meniscus derangements, unspecified meniscus, left knee Plan Alicia presents back to the office today for follow up left knee pain. Will hold off on PRP per patient request Continue with gabapentin as needed. Patient does not want to take on a scheduled dose and prefers today only when needed. Patient has exhausted conservative therapy including nonsteroidal anti-inflammatory medication, PRP, Tylenol, physical therapy and home exercise program. Discussed options for treatment including diagnostic interventional testing, steroid injections, peripheral nerve stimulation with Sprint, RFA and more permanent neuromodulation. The risks, consequences, alternatives, and benefits of various treatment options were discussed with the patient in great detail, including conservative management, injections and procedures. Will schedule for fluoroscopy guided left diagnostic genicular nerve block with local anesthetic. TENS unit ordered, instructions for use provided the patient. All questions and concerns were answered, patient agrees with the plan. Follow-up after injection, sooner if needed. Coding Level of Care Code Est Pt Level 3 (43372) Complex EM visit Add On G2211 Diagnoses S/P left knee arthroscopy Z98.890 Chronic pain of left knee M25.562; G89.29 Chronicity: chronic Degeneration of meniscus of left knee M23.307 Laterality: left
[2023-11-30 10:04] VITALS: BP 125/72; PULSE 70; O2SAT 100
== END 2023-11-30 10:33 | disposition home or self-care (01) ==
PROVIDERS: PCP Internal Medicine; Visit Provider Registered Nurse Emergency
DX: Z98.890 Other specified postprocedural states (principal); M25.562 Pain in left knee; G89.29 Other chronic pain; M23.307 Other meniscus derangements, unspecified meniscus, left knee
CPT/HCPCS: 99213; G2211

== ENCOUNTER → 2023-11-30 09:55 | Outpatient (BNVA) | payer OTHER, SELFPAY | PROVIDERS: PCP Internal Medicine; Visit Provider Registered Nurse Emergency | DX: M23.307 Other meniscus derangements, unspecified meniscus, left knee (principal); M25.562 Pain in left knee; G89.29 Other chronic pain; Z98.890 Other specified postprocedural states | CPT/HCPCS: 99212 ==

== ENCOUNTER 2023-12-02 08:04 | Outpatient (AMB) | payer OTHER, SELFPAY ==
--- NOTE | 2023-12-02 12:45 | MHC.OFFVISWM ---
VS Expanded 12/02/23 12:53 Height 5 ft 1 in Weight 211 lb 8 oz BMI 40.0 Body Fat % 53.4 Body Fat Mass 113.1 Fat Free Mass 98.8 Visceral Fat Rating 22 Body Water % 32 Body Water Mass 67.7 Basal Metabolic Rate/Score 1,338 Intake Visit Reasons: TV Pre Op LSG 12/07/23 Allergies oxycodone [OXYCODONE] Allergy (Intermediate, Verified 12/02/23 12:45) RASH,SHAKES, shakiness, body shaking, tremors Medication List - Last Reconciled 12/02/23 by Wan Malagon MD albuterol sulfate 90 mcg/actuation 2 puffs inhalation Q6H PRN 30 days amlodipine 5 mg PO QAM blood pressure monitor As directed cholecalciferol (vitamin D3) 25 mcg PO QAM cholestyramine-aspartame 4 gram (Prevalite) 4 grams PO BID diclofenac sodium 1% (Voltaren Arthritis Pain) 4 grams topical QID PRN Lactobacillus rhamnosus GG (Culturelle) 1 cap PO QAM levothyroxine 300 mcg PO QAM lisinopril 40 mg PO QAM meclizine 25 mg PO TID PRN medroxyprogesterone 10 mg PO DAILY omeprazole 20 mg PO QAM ondansetron 4 mg PO Q6-8H PRN ondansetron 4 mg PO Q12H pantoprazole 40 mg PO DAILY polyethylene glycol 3350 17 grams PO DAILY pyridoxine (vitamin B6) 50 mg PO QAM rizatriptan 10 mg PO DAILY PRN sucralfate 10 mL PO BID HPI HPI TV Pre Op LSG 12/07/23: Details: Start time: 12.34pm, End time: 1.04pm ?I spent 25 minutes speaking with the patient on the phone plus an additional 5 minutes reviewing and updating records for a total of 30 minutes HPI Comments Details: Overall weight loss: 10.6lbs, or 4.72% TBWL Is doing 2 Pure protein shakes (1/2 scoop in almond milk), 2 Pure protein bars and one meal Exercise: stationary bike x4/week for 500 calories PFSH Medical History (Updated 11/30/23 @ 14:02 by Chela Almanzar RN) Morbid obesity Meniscus degeneration Gastroenteritis Bilateral ovarian cysts Memory deficit Anserine bursitis Dawson angioma Shoulder pain, left Elevated LFTs Impaired fasting glucose Postsurgical hypothyroidism Benign essential hypertension Obesity Pericardial effusion Hypercholesterolemia History of thyroid cancer Vitamin D deficiency 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 Family history of von Willebrand disease Patellar fracture Closed right ankle fracture Lumbar disc herniation History of renal calculi Hypothyroid Vertigo Migraine Asthma Surgical History (Updated 11/30/23 @ 14:07 by Chela Almanzar RN) H/O colonoscopy S/P removal of left ovary Hx of arthroscopy of left knee S/P left knee arthroscopy Hx of tubal ligation History of pubovaginal sling Hx of cystoscopy History of ankle surgery History of cholecystectomy History of bladder surgery History of thyroid surgery History of back surgery History of section Family History Daughter Von Willebrand disease Maternal Grandmother Family history of bladder cancer Family history of breast cancer Sister Family history of breast cancer Maternal Grandfather Family history of lung cancer Other Asthma Diabetes Emphysema of lung Social History Household Members: Family and Children Housing: House Are you a primary healthcare science specialist to a significant other at home: No Do you presently have visiting nurse or other home services: No Alcohol intake: never Comment: medicated, see MAR Patient Tobacco Use Status: Never used Tobacco e-Cigarette/Vaping Use: Never Used Second Hand Smoke Exposure: No service: No Current occupational status: employed 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 Cognitive needs: No Hearing needs: No Vision needs: No Female Reproductive History Menstrual Age of Menarche: 14 Telehealth Telehealth Telehealth Platform: Telephone Location of provider rendering services: practice address Location of patient: address on file Patient Identification confirmed using: Name, : Yes Telehealth method: voice only Patient verbally consented to treatment: Yes Patient verbally consented to billing insurance company: Yes Patient informed of any privacy concerns related to visit: Yes Minutes spent on Phone/Video with Pt.: 30 Assessment & Plan Assessment & Plan (1) Morbid obesity: Code(s): E66.01 - Morbid (severe) obesity due to excess calories Category: Medical Plan: 1. Plan for lap sleeve gastrectomy including upper GI endoscopy. All tests has been completed and reviewed and the patient is cleared for the surgery. ?If diaphragmatic or ventral hernias are present at time of surgery, these will be repaired laparoscopically as well. Risks and complications were discussed in detail including possible conversion to an open procedure, anastomotic leak, bleeding requiring transfusion, small bowel obstruction, , DVT and pulmonary embolism, cardiac, or pulmonary complications, as mcc complications such as anastomotic ulcer, insufficient weight loss and vitamin deficiencies. I emphasized the importance of close follow-up, adherence to instructions and good communication. So far she has proven to be an excellent communicator and very compliant with all our directions accomplishing a great weight loss. I believe that she is an excellent candidate and she is ready. 3. Bowel prep: please do 7 packets ?of Miralax mixing each one with a an 8oz glass of water, crystal light, gatorade zero, or propel ?on 12/04/23 and the same amount on 12/05/23. The Miralax you begin with one packet at a time in 8oz water or crystal light, gatorade zero, or propel ?as early in the day as you can and you do them back to back until you finish them. Continue the protein shakes during ?the bowel prep. 4. Needs to purchase 1oz medicine cups . 5. Needs to purchase Children's liquid Tylenol for postop pain control. 6. She needs to stop supplements and the Medroxyprogesterone (re-start on 01/06/24). Avoid aspirin, motrin, Advil, Aleve, Ibuprofen, Naproxyn. Tylenol is OK. 7. She needs to purchase the Celebrate 4:1 protein shakes from the hospital's gift shop. 8. Importance of adherence to postop folllow-up and recommendations was underscored and she understands that. 9. Stop food and bars as of TODAY 12/02/23 and continue with 4 ?Pure protein shakes (1/2 scoop in 8oz almond milk) at 7am-9am, 10am-12pm, 1pm-3pm, 4pm-6pm and one more Pure protein shake with ONE scoop in 8oz of almond milk at 7pm-9pm 10. No soups, broths or V8 11. The patient's?medical?history has been reviewed and they are considered low risk for post op DVT and therefore DVT prophylaxis is not considered necessary. Travel after surgery was reviewed. The patient has not disclosed any travel plans during the first 30 days after surgery and they have been advised that within the first 30 days after surgery any bus, plane, train or car travel over 2 hours in duration is contraindicated due to the possibility of developing blood clots from immobility. Any travel, needs to include periods of ambulation of 10 minutes in duration every 2 hours.? Patient was instructed to discuss any plans for travel during this period with their bariatric surgeon.? 12. As of tomorrow, please measure your blood pressure daily in the mornings. If the blood pressure is: Below 120/70: Do not take the Lisinopril or the Amlodipine 121/71 to 135/85: Take the Amlodipine only Over 136/86: take both the Amlodipine and Lisinopril 13. Please take at the day of surgery the following medications: ONLY the Amlodipine and Lisinoprile if blood pressure falls within the parameters described in #12 14. Stop any control pills and don't use them for one month after surgery 15. Absolutely no smoking or vaping, or marijuana until the surgery and for at least the first 4 weeks. Only nicotine patches are allowed. 16. Send me weight measurements on Tuesday12/06/23, the day of surgery before you go to the hospital. 17. Avoid any steroids by mouth for any reason. Let me know if someone prescribes them to you 18. These instructions supersede anything else you read in the handbook, anything you watched in videos or classes or you were told by any other provider. If there is any conflict, you follow the above instructions and nothing else. Medications: New pantoprazole 40 mg PO DAILY 90 tabs 0RF K21.9 - Gastro-esophageal reflux disease without esophagitis ondansetron Only take one every 12 hours as needed if you have nausea 4 mg PO Q12H 20 tabs 0RF nausea and vomiting R11.0 - Nausea polyethylene glycol 3350 Mix each measuring cup with 8oz of water, Crystal light, or Gatorade zero, or Propel and do 7 measuring cups on 12/05/23 and another 7 measuring cups on 12/06/23 17 grams PO DAILY 238 grams 0RF Z01.818 - Encounter for other preprocedural examination sucralfate 10 mL PO BID 60 mL 0RF K21.9 - Gastro-esophageal reflux disease without esophagitis
[2023-12-02 12:53] VITALS: BMI 40.0
== END 2023-12-02 13:05 | disposition home or self-care (01) ==
LOC: HO.HBS 08:04
PROVIDERS: PCP Internal Medicine; Visit Provider Surgery
DX: E66.01 Morbid (severe) obesity due to excess calories (principal)
CPT/HCPCS: 99214

== ENCOUNTER → 2023-12-02 08:04 | Outpatient (BNVA) | payer OTHER, SELFPAY | PROVIDERS: PCP Internal Medicine; Visit Provider Surgery ==

== ENCOUNTER 2023-12-07 06:57 | Inpatient (IN) | payer OTHER, SELFPAY ==
[2023-12-01 10:26] VITALS: BMI 39.9
--- NOTE | 2023-12-05 13:43 | HO.ANESPROP2 ---
Documented by User: Kristy Hawley NP 12/05/23 13:44 HPI - Anesthesia Eval Consult details Narrative: 48yo F for Gastrectomy Sleeve,EGD,possibel Diaphragmatic Hernia,possible Ventral Hernia,possible Open PMFSH Active Problems Active Problems: All Active Problems Uterine myoma (Acute) Postoperative stitch abscess (Acute) Postop check (Acute) Sebaceous cyst (Acute) Mass of chest wall, right (Acute) Annual physical exam (Acute) Unspecified nonpsychotic mental disorder (Acute) GERD (gastroesophageal reflux disease) (Acute) Pre-op examination (Acute) Osteoarthritis of right patellofemoral joint (Acute) Hemorrhagic cyst of ovary (Acute) Dysphagia (Acute) Bile salt-induced diarrhea (Acute) Abnormal uterine bleeding (Acute) Fatty liver (Acute) Adenoma of right adrenal gland (Acute) Complex ovarian cyst (Acute) Malpositioned IUD (Acute) Hydronephrosis (Acute) Left knee pain (Acute) Headache (Acute) Osteoarthritis of left knee (Acute) Migraine (Acute) Nephrolithiasis (Acute) Meniscus degeneration (Acute) Morbid obesity (Acute) Asthma (Acute) Impaired fasting glucose (Acute) Postsurgical hypothyroidism (Acute) Benign essential hypertension (Acute) Obesity (Acute) Hypercholesterolemia (Acute) History of thyroid cancer (Acute) Vitamin D deficiency (Acute) Past Medical History Medical History (Updated 12/07/23 @ 08:29 by Wan Malagon MD) Hypothyroid Fatty liver Morbid obesity Meniscus degeneration Gastroenteritis Bilateral ovarian cysts Memory deficit Anserine bursitis Dawson angioma Shoulder pain, left Elevated LFTs Impaired fasting glucose Postsurgical hypothyroidism Benign essential hypertension Obesity Pericardial effusion Hypercholesterolemia History of thyroid cancer Vitamin D deficiency 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 Family history of von Willebrand disease Patellar fracture Closed right ankle fracture Lumbar disc herniation History of renal calculi Vertigo Migraine Asthma Family History Family History Daughter Von Willebrand disease Maternal Grandmother Family history of bladder cancer Family history of breast cancer Sister Family history of breast cancer Maternal Grandfather Family history of lung cancer Other Asthma Diabetes Emphysema of lung Family history of problems with anesthesia: No Surgical History Surgical History H/O colonoscopy S/P removal of left ovary Hx of arthroscopy of left knee S/P left knee arthroscopy Hx of tubal ligation History of pubovaginal sling Hx of cystoscopy History of ankle surgery History of cholecystectomy History of bladder surgery History of thyroid surgery History of back surgery History of section History of Problems with Anesthesia: No Social History Social History Household Members: Family and Children Housing: House Are you a primary career technical education instructor to a significant other at home: No Do you presently have visiting nurse or other home services: No Alcohol intake: never Comment: medicated, see MAR Patient Tobacco Use Status: Never used Tobacco e-Cigarette/Vaping Use: Never Used Second Hand Smoke Exposure: No Use of substances other than those prescribed or required for medical reasons: No Are you DNR?: No Advance Directives: No Advance Directives on File: No Recently lost weight without trying: No Eating poorly because of decreased appetite: No Nutrition Risks: No Nutritional Risk Patient : No FDLMP: 11/17/23 : No Poor oral hygiene: No (full upper & lower denture) service: No Current occupational status: employed 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 Cognitive needs: No Hearing needs: No Vision needs: No Meds Allergies Allergy/AdvReac Type Severity Reaction Status Date / Time oxycodone [OXYCODONE] Allergy Intermediate RASH,SHAKES, Verified 12/07/23 07:02 shakiness, body shaking, tremors Home Medications ?Medication ?Instructions ?Recorded ?Confirmed ?Last Taken ?Type levothyroxine 300 mcg tablet 300 mcg PO QAM 07/29/23 12/07/23 12/06/23 History Lactobacillus rhamnosus GG 10 1 cap PO QAM 12/01/23 12/07/23 12/05/23 History billion cell capsule (Culturelle) diclofenac sodium 1 % topical gel 4 g topical QID PRN Pain 12/01/23 12/02/23 Unknown History (Voltaren Arthritis Pain) lisinopril 40 mg tablet 40 mg PO QAM 12/01/23 12/07/23 12/05/23 History medroxyprogesterone 10 mg tablet 10 mg PO DAILY 12/01/23 12/02/23 Unknown History pyridoxine (vitamin B6) 50 mg 50 mg PO QAM 12/01/23 12/07/23 12/06/23 History tablet rizatriptan 10 mg tablet 10 mg PO DAILY PRN migraine 12/01/23 12/02/23 Unknown History headache Exam Height,Weight and Vital Signs: Height 5 ft 1 in Weight 95.708 kg Pertinent Lab Results Pertinent Lab Results: Laboratory Tests 11/29/23 09:10 Blood Type O Positive Antibody Screen NEGATIVE Laboratory Tests 11/29/23 09:22 WBC 7.1 Hgb 12.8 Hct 38.7 Plt Count 380 D Sodium 139 Potassium 4.1 D Chloride 104 Carbon Dioxide 27 BUN 17 H Creatinine 0.57 Narrative Narrative: EKG 07/2023 Vent. Rate : 087 BPM Atrial Rate : 087 BPM P-R Int : 146 ms QRS Dur : 084 ms QT Int : 350 ms P-R-T Axes : 042 007 034 degrees QTc Int : 421 ms Normal sinus rhythm Normal ECG When compared with ECG of 10-SEP-2020 15:17, No significant change was found Assessment and Plan Assessment Anesthesia Assessment: Chart Reviewed Final Anesthetic Review Family History of Problems with Anesthesia: No History of Problems with Anesthesia: No Documented by User: Haylie Anthony MD 12/07/23 08:59 HPI - Anesthesia Eval Consult details Narrative: 48yo F for EGD, Laparoscopic Sleeve Gastrectomy, possible Diaphragmatic Hernia repair, possible Ventral Hernia repair, possible Open PMFSH Active Problems Active Problems: All Active Problems Uterine myoma (Acute) Postoperative stitch abscess (Acute) Sebaceous cyst (Acute) Mass of chest wall, right (Acute)- patient denies Unspecified nonpsychotic mental disorder (Acute) GERD (gastroesophageal reflux disease) (Acute) Pre-op examination (Acute) Osteoarthritis of right patellofemoral joint (Acute) Hemorrhagic cyst of ovary (Acute) Dysphagia (Acute) Bile salt-induced diarrhea (Acute) Abnormal uterine bleeding (Acute) Fatty liver (Acute) Adenoma of right adrenal gland (Acute) Complex ovarian cyst (Acute) Malpositioned IUD (Acute) Hydronephrosis (Acute) Left knee pain (Acute) Headache (Acute) Osteoarthritis of left knee (Acute) Migraine (Acute) Nephrolithiasis (Acute) Meniscus degeneration (Acute) Morbid obesity (Acute) BMI 39.9 Asthma (Acute)- controlled. Inhaler prn Impaired fasting glucose (Acute) Postsurgical hypothyroidism (Acute) Benign essential hypertension (Acute) Hypercholesterolemia (Acute) History of thyroid cancer (Acute) Vitamin D deficiency (Acute) Past Medical History Medical History (Updated 12/07/23 @ 08:29 by Wan Malagon MD) Hypothyroid Fatty liver Morbid obesity Meniscus degeneration Gastroenteritis Bilateral ovarian cysts Memory deficit Anserine bursitis Dawson angioma Shoulder pain, left Elevated LFTs Impaired fasting glucose Postsurgical hypothyroidism Benign essential hypertension Obesity Pericardial effusion Hypercholesterolemia History of thyroid cancer Vitamin D deficiency 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 Family history of von Willebrand disease Patellar fracture Closed right ankle fracture Lumbar disc herniation History of renal calculi Vertigo Migraine Asthma Family History Family History Daughter Von Willebrand disease Maternal Grandmother Family history of bladder cancer Family history of breast cancer Sister Family history of breast cancer Maternal Grandfather Family history of lung cancer Other Asthma Diabetes Emphysema of lung Family history of problems with anesthesia: No Surgical History Surgical History H/O colonoscopy S/P removal of left ovary Hx of arthroscopy of left knee S/P left knee arthroscopy Hx of tubal ligation History of pubovaginal sling Hx of cystoscopy History of ankle surgery History of cholecystectomy History of bladder surgery History of thyroid surgery History of back surgery History of section History of Problems with Anesthesia: No Social History Social History Household Members: Family and Children Housing: House Are you a primary career technical education instructor to a significant other at home: No Do you presently have visiting nurse or other home services: No Alcohol intake: never Comment: medicated, see MAR Patient Tobacco Use Status: Never used Tobacco e-Cigarette/Vaping Use: Never Used Second Hand Smoke Exposure: No Use of substances other than those prescribed or required for medical reasons: No Are you DNR?: No Advance Directives: No Advance Directives on File: No Recently lost weight without trying: No Eating poorly because of decreased appetite: No Nutrition Risks: No Nutritional Risk Patient : No FDLMP: 11/17/23 : No Poor oral hygiene: No (full upper & lower denture) service: No Current occupational status: employed 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 Cognitive needs: No Hearing needs: No Vision needs: No Meds Allergies Allergy/AdvReac Type Severity Reaction Status Date / Time oxycodone [OXYCODONE] Allergy Intermediate RASH,SHAKES, Verified 12/07/23 07:02 shakiness, body shaking, tremors Home Medications ?Medication ?Instructions ?Recorded ?Confirmed ?Last Taken ?Type levothyroxine 300 mcg tablet 300 mcg PO QAM 07/29/23 12/07/23 12/06/23 History Lactobacillus rhamnosus GG 10 1 cap PO QAM 12/01/23 12/07/23 12/05/23 History billion cell capsule (Culturelle) diclofenac sodium 1 % topical gel 4 g topical QID PRN Pain 12/01/23 12/02/23 Unknown History (Voltaren Arthritis Pain) lisinopril 40 mg tablet 40 mg PO QAM 12/01/23 12/07/23 12/05/23 History medroxyprogesterone 10 mg tablet 10 mg PO DAILY 12/01/23 12/02/23 Unknown History pyridoxine (vitamin B6) 50 mg 50 mg PO QAM 12/01/23 12/07/23 12/06/23 History tablet rizatriptan 10 mg tablet 10 mg PO DAILY PRN migraine 12/01/23 12/02/23 Unknown History headache Exam Height,Weight and Vital Signs: Height 5 ft 1 in Weight 95.708 kg Vital Signs Temp Pulse Resp BP Pulse Ox O2 Del Method 12/07/23 07:48 97.4 F 90 16 134/79 100 Room Air Pertinent Lab Results Pertinent Lab Results: Laboratory Tests 11/29/23 09:10 Blood Type O Positive Antibody Screen NEGATIVE Laboratory Tests 11/29/23 09:22 WBC 7.1 Hgb 12.8 Hct 38.7 Plt Count 380 D Sodium 139 Potassium 4.1 D Chloride 104 Carbon Dioxide 27 BUN 17 H Creatinine 0.57 Airway Mallampati Class: II TM Dist: >3cm Neck ROM: Full Denture: Upper and Lower Loose/Missing/Broken Teeth: Yes Heart: RRR Lungs: CTAB Assessment and Plan Assessment Anesthesia Assessment: Anesthesia Plan Discussed and Chart Reviewed Final Anesthetic Review Family History of Problems with Anesthesia: No History of Problems with Anesthesia: No NPO: Yes ASA Class: III Final Preanesthetic Review: No Changes in Pt Med Stat, Meds/Allgs Chart Reviewed, Consent Obtained/Reviewed and Anes Risks/Benef Reviewed Patient Risk: Intermediate Procedure Risk: Intermediate Assessment/Block/Sedation in SS: Assess/Block/Sedation-SS Anesthetic Plan Anesthetic Plan: GA Disposition: Standard PACU and Inp. Admit - Standard Bed
[2023-12-07] VITALS (15 sets, daily range): BP systolic 119–165; BP diastolic 71–103; PULSE 70–90; RESP 12–20; TEMP 36–36.7; O2SAT 92–100
--- OUTSIDE RECORDS SUMMARY | 2023-12-07 07:03 | XMS_ITS | Continuity of Care Document ---
Author Organization [facility] Oncolog y Address [address] [place] [id number]- Care Team Providers Care Registration Coordinator Name Role Phone Po Tamela CASTANEDA Primary Care Physician En[place] [facility] Date(s): 04/04/23 - 05/04/23 [facility] Oncology [address] [place] [id number] Attending Physician: AdmConrado hu Admitting Physician: AdmtrConrado Referring Physician: Admtr, Ar8 Allergies, Adverse Reactions, Alerts Substance Reaction Severity Status oxycodone body shakes Active Immunizations Given and Recorded Vaccine Date Status Refusal Reason pneumococcal 23-valent vaccine 12/08/13 Given influenza virus vaccine, inactivated 02/10/10 Give n influenza virus vaccine, inactivated 01/17/07 Give n Influenza Virus Vaccine (oldterm) 01/17/07 Given Pneumococcal Vaccine (oldterm) 1 12/14/06 Given 1Result Comment: lot [id number] exp. [id number] Medications albuterol 90 mcg/inh inhalation aerosol 2, puffs, 3 times a day, Scheduled / PRN, 0, 0, 12/17/05 14:25:28, as needed for wheezing, Print LAVERNE Number, 68 Start Date: 12/17/05 Status: Ordered Amlodipine = 5 mg, By Mouth, Daily in AM, 0 Refills, Maintenance, 12/27/22 10:44:00 EDT, Partial fill upon patient request if the prescription is for a schedule II opioid drug. Start Date: 12/27/22 Status: Ordered ibuprofen 800 mg oral tablet 800 mg, 1, tablet, By Mouth, Every 8 hours, # 30 tablet, Refills 0, Tot. Refills 0, Maintenance, 02/08/23 10:30:00 EST, Route to Pharmacy Electronically, [facility]/pharmacy #[id number], Partial fill upon patientrequest if the prescription is for a schedule II op... Start Date: 02/08/23 Status: Ordered lisinopril 10 mg oral tablet 30 mg, By Mouth, Daily in AM, # 30 tablet, Refills 0, Maintenance, 05/16/18 10:47:26 EST Start Date: 05/16/18 Status: Ordered lisinopril 40 mg oral tablet 1 tablet = 40 mg, By Mouth, Daily, 0 Refills, Maintenance, 04/04/23 10:21:00 EST, Partial fill uponpatient request if the prescription is for a schedule II opioid drug. Start Date: 04/04/23 Status: Ordered meclizine 25 mg oral tablet 1 tablet = 25 mg, By Mouth, Daily, PRN Other, 90 each, 0 Refill(s), TAKE 1 TABLET BY MOUTH 3 TIMES A DAY NEEDED FOR DIZZINESS/VERTIGO, 0 Refills, 12/27/22 10:43:00 EDT, Partial fill upon patient request if the prescription is for a schedule II opio... Start Date: 12/27/22 Status: Ordered MiraLax oral powder for reconstitution = 17 Gm, By Mouth, Daily, dissolve in water before taking, # 527 Gm, 0 Refills, Maintenance, 02/08/23 10:31:00 EST, REC Powder, [facility]/pharmacy #[id number], Partial fill upon patient request if the prescription is for a schedule II opioid drug., 17 Gm By Mouth... Start Date: 02/08/23 Status: Ordered Mirena 52 mg intrauteral device 1 each = 52 mg, Intrauterine, Once, Lot #[id number] exp 11/09, # 1 each, 1 Refills, Soft Stop Start Date: 05/05/12 Status: Ordered Relpax 20 mg oral tablet 1 tablet = 20 mg, By Mouth, 0 Refills, Maintenance, 04/04/23 10:19:00 EST, Partial fill upon patient request if the prescription is for a schedule II opioid drug. Start Date: 04/04/23 Status: Ordered senna 15 mg oral tablet, chewable 2 tablet = 30 mg, Chew, 2 times a day, PRN for constipation, # 18 tablet, 0 Refills, Maintenance, 02/08/23 10:31:00 EST, Chew Tablet, [facility]/pharmacy #[id number], Partial fill upon patient request if the prescription is for a schedule II opioid drug., 154.94,... Start Date: 02/08/23 Status: Ordered Sumatriptan = 100 mg, By Mouth, Once, PRN Other, for migraine headaches., 0 Refills, Maintenance, 02/04/23 18:32:00 EST, Partial fill upon patient request if the prescription is for a schedule II opioid drug. Start Date: 02/04/23 Status: Ordered Tirosint 100 mcg (0.1 mg) oral capsule = 275 mcg, By Mouth, Daily in AM, 0 Refills, Maintenance, 12/06/18 10:21:14 EDT Start Date: 12/06/18 Status: Ordered traMADol 50 mg oral tablet 1 tablet = 50 mg, By Mouth, Every 4 hours, PRN as needed for pain, # 5 tablet, 0 Refills, Maintenance, 02/08/23 10:31:00 EST, Tablet, [facility]/pharmacy #[id number], Partial fill upon patient request if the prescription is for a schedule II opioid drug., 154.94,... Start Date: 02/08/23 Status: Ordered Tylenol Extra Strength 500 mg oral tablet 2 tablet = 1,000 mg, By Mouth, 3 times a day, PRN as needed for pain, # 90 tablet, 0 Refills, Maintenance, 11/13/19 6:55:00 EDT, Tablet Start Date: 11/13/19 Status: Ordered Vitamin D3 5000 intl units oral tablet 1 tablet = 5,000 International_Units, By Mouth, Daily, # 30 tablet, 0 Refills, Maintenance, 11/13/19 6:55:00 EDT, Tablet Start Date: 11/13/19 Status: Ordered Problem List Condition Confirmation Course Effective Dates Status H ealth Status Informant Hypertension Confirmed Active Herniation of lumbar intervertebral disc with radiculopathy Confirmed Active Papillary thyroid carcinoma 1, 2 Confirmed Active Pelvic mass Confirmed Active Severe obesity Confirmed Active 1Sees Dr. Mary Wallace of [place] [facility] 2Dx 11/2005. s/p thyroidectomy 2006 (total 4.5 cm) and I131 ablation (159 mCi). Social History Social History Type Response Tobacco Use: pt denies. Sex Patient Care team information Care Team Personnel Name: Mandy Keller RN Position: [facility]bie RN Member Role: Primary Care Nurse Name: Natalya Urbina RN Position: [facility] RN Member Role: Primary Care Nurse Name: Luz Bae RN Position: [facility] SN RN Member Role: Primary Care Nurse Name: Tamela Pelaez MD Position: Reference Physician Member Role: PCP Address: Address: [address] [place] [id number] Name: Nell Montague RN Position: S RN Member Role: Primary Care Nurse Name: Mildred Elaine RN, I Position: S RN Member Role: Primary Care Nurse Care Team Related Persons Name: JULIA NICHOLS Address: home [address] [place] [address] Name: NIKA REYES Address: [address] [place] [address] Name: MANDIE KING Address: home [address] [place] [address]
--- OUTSIDE RECORDS SUMMARY | 2023-12-07 07:03 | XMS_ITS | Continuity of Care Document ---
Author Organization [facility] Address [address] [place] [address], [address] [place] [address]- Care Team Providers Care Meat Grinder Name Role Phone Po Tamela CASTANEDA Primary Care Physician [phone] Encounter [facility] Date(s): 11/03/22 - 12/03/22 [facility] [employer] [facility] [address] [facility] [place], [place] [address] Allergies, Adverse Reactions, Alerts Substance Reaction Severity Status oxycodone body shakes Active Immunizations Given and Recorded Vaccine Date Status Refusal Reason pneumococcal 23-valent vaccine 12/08/13 Given influenza virus vaccine, inactivated 02/10/10 Give n influenza virus vaccine, inactivated 01/17/07 Give n Influenza Virus Vaccine (oldterm) 01/17/07 Given Pneumococcal Vaccine (oldterm) 1 12/14/06 Given 1Result Comment: lot [id number] exp. [id number] Medications Advair Diskus 250 mcg-50 mcg inhalation powder 1, puffs, Inhalation, 2 times a day, PRN, # 1 cartridge, Refills 0, Maintenance, 05/16/18 10:47:44 EST, Powder Start Date: 05/16/18 Status: Ordered albuterol 90 mcg/inh inhalation aerosol 2, puffs, 3 times a day, Scheduled / PRN, 0, 0, 12/17/05 14:25:28, as needed for wheezing, Print LAVERNE Number, 68 Start Date: 12/17/05 Status: Ordered Dilaudid 2 mg oral tablet 1 tablet = 2 mg, By Mouth, Every 4 hours, PRN for pain, # 30 tablet, 0 Refills, Maintenance, 11/13/19 6:55:00 EDT, Tablet, Partial fill upon patient request Start Date: 11/13/19 Status: Ordered Ecotrin 325 mg oral delayed release tablet 1 tablet = 325 mg, By Mouth, Daily, # 30 tablet, 0 Refills, Maintenance, 11/13/19 6:55:00 EDT, EC Tablet Start Date: 11/13/19 Status: Ordered lisinopril 10 mg oral tablet 30 mg, By Mouth, Daily in AM, # 30 tablet, Refills 0, Maintenance, 05/16/18 10:47:26 EST Start Date: 05/16/18 Status: Ordered Mirena 52 mg intrauteral device 1 each = 52 mg, Intrauterine, Once, Lot [id number] exp 11/09, # 1 each, 1 Refills, Soft Stop Start Date: 05/05/12 Status: Ordered Tirosint 100 mcg (0.1 mg) oral capsule = 275 mcg, By Mouth, Daily, 0 Refills, Maintenance, 12/06/18 10:21:14 EDT Start Date: 12/06/18 Status: Ordered Tylenol Extra Strength 500 mg [...] Papillary thyroid carcinoma 1, 2 Confirmed Active Severe obesity Confirmed Active 1Sees Dr. Mary Wallace of [place] [facility] 2Dx 11/2005. s/p thyroidectomy 2006 (total 4.5 cm) and I131 ablation (159 mCi). Social History Social History Type Response Tobacco Use: pt denies. Sex Patient Care team information Care Team Personnel Name: Mandy Keller RN Position: S RN Member Role: Primary Care Nurse Name: Natalya Urbina RN Position: S RN Member Role: Primary Care Nurse Name: Luz Bae RN Position: [facility] RN Member Role: Primary Care Nurse Name: Tamela Pelaez MD Position: Reference Physician Member Role: PCP Address: Address: [address] [place] [phone]- [place] Name: Nell Montague RN Position: S RN Member Role: Primary Care Nurse Name: Mildred Elaine RN, I Position: S RN Member Role: Primary Care Nurse Care Team Related Persons Name: SIMONE, JULIA Address: [address] [place] [address] Name: NIKA REYES Address: [address] [place] [address] Name: MADISON MAZARIEGOS Address: [place] [address]
--- OUTSIDE RECORDS SUMMARY | 2023-12-07 07:03 | XMS_ITS | Continuity of Care Document ---
Author Organization [facility] On[facility] Address [address] [place] [address]- Care Team Providers Care Vision Care Associate Name Role Phone Po Tamela CASTANEDA Primary Care Physician Encounter [facility] Date(s): 12/15/22 - 01/14/23 [facility] Oncology [address] [place] [id number] Allergies, Adverse Reactions, Alerts Substance Reaction Severity Status oxycodone body shakes Active Immunizations Given and Recorded Vaccine Date Status Refusal Reason pneumococcal 23-valent vaccine 12/08/13 Given influenza virus vaccine, inactivated 02/10/10 Give n influenza virus vaccine, inactivated 01/17/07 Give n Influenza Virus Vaccine (oldterm) 01/17/07 Given Pneumococcal Vaccine (oldterm) 1 12/14/06 Given 1Result Comment: lot [id number] exp. [id number] Medications Advair Diskus 250 mcg-50 mcg inhalation powder 1, puffs, Inhalation, 2 times a day, PRN, # 1 cartridge, Refills 0, Maintenance, 05/16/18 10:47:44 EST, Powder Start Date: 05/16/18 Status: Ordered albuterol 90 mcg/inh inhalation aerosol 2, puffs, 3 times a day, Scheduled / PRN, 0, 0, 12/17/05 14:25:28, as needed for wheezing, Print LAVERNE Number, 68 Start Date: 12/17/05 Status: Ordered Amlodipine By Mouth, Daily, 0 Refills, Maintenance, 12/27/22 10:44:00 EDT, Partial fill upon patient request if the prescription is for a schedule II opioid drug. Start Date: 12/27/22 Status: Ordered Dilaudid 2 mg oral tablet [...] 10:47:26 EST Start Date: 05/16/18 Status: Ordered meclizine 25 mg oral tablet 90 each, 0 Refill(s), TAKE 1 TABLET BY MOUTH 3 TIMES A DAY NEEDED FOR DIZZINESS, 0 Refills, 12/27/22 10:43:00 EDT, Partial fill upon patient request if the prescription is for a schedule II opioiddrug. Start Date: 12/27/22 Status: Ordered Mirena 52 mg intrauteral device 1 each = 52 mg, Intrauterine, Once, Lot #[id number] exp 11/09, # 1 each, 1 Refills, [...] Confirmed Active 1Sees Dr. Mary Wallace of [place] [facility] 2Dx 11/2005. s/p thyroidectomy 2006 (total 4.5 cm) and I131 ablation (159 mCi). Social History Social History Type Response Tobacco Use: pt denies. Sex Patient Care team information Care Team Personnel Name: Mandy Keller RN Position: S RN Member Role: Primary Care Nurse Name: Natalya Urbina RN Position: S RN Member Role: Primary Care Nurse Name: Luz Bae RN Position: S SN RN Member Role: Primary Care Nurse Name: Tamela Pelaez MD Position: Reference Physician Member Role: PCP Address: Address: [address] [place] [address] Name: Nell Montague RN Position: S RN Member Role: Primary Care Nurse Name: Mildred Elaine RN, I Position: S RN Member Role: Primary Care Nurse Care Team Related Persons Name: SIMONEJULIA LARA Address: [address] [place] [address] Name: NIKA REYES Address: [address] [place] [address] Name: MADISON MAZARIEGOS Address: [place] [address]
--- OUTSIDE RECORDS SUMMARY | 2023-12-07 07:03 | XMS_ITS | Continuity of Care Document ---
Author Organization [facility] ter Address [address] [place] [address]- Care Team Providers Care Pipe Turner Name Role Phone Po Tamela CASTANEDA Primary Care Physician [phone] [place] [facility] [facility] [place]13/23 - 10/13/[address] [address] Discharge Disposition: A-D/C Home Attending Physician: Mandi Elaine MD Admitting Physician: Mandi Elaine MD Referring Physician: Mandi Elaine MD Allergies, Adverse Reactions, Alerts Substance Reaction Severity Status oxycodone body shakes Active Immunizations Given and Recorded Vaccine Date Status Refusal Reason pneumococcal 23-valent vaccine 12/08/13 Given influenza virus vaccine, inactivated 02/10/10 Give n influenza virus vaccine, inactivated 01/17/07 Give n Influenza Virus Vaccine (oldterm) 01/17/07 Given Pneumococcal Vaccine (oldterm) 1 12/14/06 Given 1Result Comment: lot [id number] exp. [id number] Medications acetaminophen-hydrocodone 300 mg-5 mg oral tablet 1 tablet, By Mouth, Every 6 hours, PRN as needed for pain, # 15 tablet, 0 Refills, Maintenance, 10/12/23 11:53:00 EDT, Tablet, [id number], Partial fill upon patient request if the prescription is for a schedule II opioid drug., 1 tablet By Deloris... Start Date: 10/12/23 Status: Ordered albuterol 90 mcg/inh inhalation aerosol [...] ibuprofen 800 mg oral tablet 800 mg, Tablet, By Mouth, Once, PRN for Pain , Mild, Routine, 10/13/23 16:24:00 EDT Start Date: 10/13/23 Stop Date: 10/13/23 Status: Completed ibuprofen 800 mg oral tablet 800 mg, 1, tablet, By Mouth, Every 8 hours, # 30 tablet, Refills 0, Tot. Refills 0, Maintenance, 02/08/23 10:30:00 EST, Route to Pharmacy Electronically, [facility]/pharmacy #[id number], Partial fill upon patientrequest if [...] Refills, Maintenance, 02/08/23 10:31:00 EST, REC Powder, [facility]/pharmacy #[id number], Partial fill upon patient request if the prescription is for a schedule II opioid drug., 17 Gm By Mouth... Start Date: 02/08/23 Status: Ordered Mirena 52 mg intrauteral device 1 each = 52 mg, Intrauterine, Once, Lot #[id number] exp 11/09, # 1 each, 1 Refills, [...] 0 Refills, Maintenance, 02/08/23 10:31:00 EST, Tablet, [facility]/pharmacy #1972, Partial fill upon patient request if the prescription is for a schedule II opioid drug., 154.94,... Start Date: 02/08/23 Status: Ordered Tylenol 325 mg oral tablet 975 mg, Tablet, By Mouth, Once, PRN for Pain , Moderate, Routine, 10/13/23 16:25:00 EDT Start Date: 10/13/23 Stop Date: 10/13/23 Status: Completed Tylenol Extra Strength 500 mg oral tablet [...] List Condition Confirmation Course Effective Dates Status Health Status Informant Hypercholesterolemia Confirmed Active Hypertension Confirmed Active Impaired fasting glucose Confirmed Active History of renal calculi Confirmed Active Herniation of lumbar intervertebral disc with radiculopathy Confirmed Active Memory deficit Confirmed Active Migraine Confirmed Active Mirena IUD in place. IUD malpositioned on imaging 10/12/23 Confirmed Active History of papillary thyroid carcinoma s/p thyroidectomy 2005 (total 4.5 cm) and I131 ablation (159 mCi) 1, 2 Confirmed Active Last Pap smear outside of [facility] system 03/2022: per report was negative with negative HPV. Denies prior abnormal Paps Confirmed Active Severe obesity Confirmed Active Adenomyosis suspected based on imaging Confirmed Active Vertigo Confirmed Active 1Sees Dr. Mary Wallace of [facility] 2Dx 11/2005. s/p thyroidectomy 2005 (total 4.5 cm) and I131 ablation (159 mCi). Vital Signs Most recent to oldest [Reference Range]: 1 2 3 Height 155 cm (10/13/23 2:46 PM) 155 cm (10/13/23 2:22 PM) Oxygen Saturation [94-100 %] 97 % (10/13/23 2:45 PM) 97 % (10/13/23 2:27 PM) Blood Pressure [90-138/55-84 mm Hg] 101/60mm Hg (10/13/23 2:45 PM) 99/43mm Hg (10/13/23 2:27 PM) Respiratory Rate [16-30 br/min] 18 br/min (10/13/23 4:57 PM) 18 br/min (10/13/23 4:57 PM) 18 br/min (10/13/23 2:45 PM) Social History Social History Type Response Smoking Status Never (less than 100 in lifetime) entered on: 10/12/23 Sex Note * Ana WILD, Yuko Huerta: PERFORM Event Display: Discharge/Transfer Note Hospital Authored Date: [id number] Nursing Discharge Note Entered On: 10/13/2023 17:41 EDT Performed On: 10/13/2023 17:41 EDT by Yuko Perez RN, V Nursing Discharge Note 2 Discharge Time : 10/13/2023 17:41 EDT Discharge Level of Care at Discharge : Home/[facility] Patient Left Unit Via : Ambulatory Patient Accompanied Off Unit with : Other: self DC Instructions Provided & Signed by Pt : Yes Patient Understands D/C Instructions : Yes Patient Instructions Discharge Signed : Yes Did Pt have Specialty Bed or Wound Vac : No Yuko Perez RN, V - 10/13/2023 17:41 EDT * Yuko Perez RN, V: PERFORM Event Display: Patient Education/Instruction Authored Date: [id number] Inpatient Adult Discharge Instructions. [address] [address] Name: MARY REYES : 1975?? Visit: 10/13/2023 14:13?? Current Date: 10/13/2023 17:34 ?? Account: [id number]?? Inpatient Adult Discharge Instructions We would like to thank you for allowing us to assist you with your healthcare needs. The following includes patient education materials and information regarding your injury/illness. Our entire staffstrives to provide an excellent experience for our patients and their families. PLEASE ENSURE YOU FOLLOW-UP PER THE INSTRUCTIONS BELOW! ?? YOUR OPINION IS IMPORTANT TO US! Please complete the survey you may receive by mail or email. Your feedback will be used to make improvements to the healthcare experiences of our patients and their families. Surveys are administered by [employer] ?? If further treatment with your primary care physician or another doctor is recommended, it is important for you to keep the appointment. Call your primary care physician or return to the Emergency Department immediately if your condition worsens, fails to improve, or new symptoms develop. If you need to find a doctor, you can call [facility] [employer] for a referral at [phone] or toll free at [phone]) or log in to [email or web address].. ?? [facility], in keeping with [facility] guidance, no longer requires face masks for staff, patientsor visitors in most situations. Similiar to time spent indoors at other locations, there is the chance that you were exposed to repiratory viruses during your time with us (such as flu or COVID-19). If you develop symptoms concerning for a viral respiratory infection, please seek testing (and treatment if indicated) from your medical provider or home test kit. ?? You can view and manage your care through the patient portal or by using a health care frances of your choosing. [employer] is a website that allows you to securely view your medical information including your hospital discharge summary, office visit summaries, medications and follow-up visits. You can also request appointments, renew medications, and request access to your medical information using a health care frances of your choosing, or just ask a question. You can enroll at [email or web address] or register during your next office visit. You have been discharged from [facility], Patient Care Unit: [id number]??. If you have any questions regarding these instructions, including results of studies pending, afteryou leave, please call us and we will be happy to assist you 18/10. [facility] Your Care Team Attending Physician Mandi Elaine MD?? Consulting Providers Mandi Elaine MD?? Tests Performed Below is a partial list of the tests performed during your hospitalization. You may have had other tests and procedures not included in this list. Please discuss all test results with your provider. CBC Type and Screen CBC?? Type and Screen?? Primary Care Provider Tamela Pelaez MD? Advance Directive Health Care Proxy on File No Discharge Vitals Respiratory Rate: 18 br/min Height: 155 cm Respiratory Rate: 18 br/min ?? Systolic Blood Pressure: 101 mm Hg ?? Diastolic Blood Pressure: 60 mm Hg ?? Oxygen Saturation: 97 % ?? Studies Pending All studies ordered during this hospital stay have been completed unless listed below. Please discuss all pending results with your provider listed above in these instructions. ?? No incomplete studies found?? What to do next Instructions From Your Doctor ?? Orders?? You Need to Schedule the Following Appointments Follow Up with??Bro CASTANEDA , Shashi Strickland Why: Follow up at your next appointment Where: [address] [place] [address] [place] [address]- Discharge Medications MARY REYES :1975 Visit Date:10/13/2023 Medications: Please continue your medications until treatment is completed or stopped by your provider. Medications not listed below should be discontinued. Discuss any questions related to medications with your provider. What How Much When Instructions Next Dose Unchanged Acetaminophen (Tylenol Extra Strength 500 mg oral tablet) 2 tab(s) Oral 3 times a day as needed for as needed for pain Unchanged Acetaminophen / Hydrocodone (acetaminophen-hydrocodone 300 mg-5 mg oral tablet) 1 tab(s) Oral Every 6 hours as needed for as needed for pain Unchanged Albuterol (albuterol 90 mcg/ inh inhalation aerosol) 2 puff(s) 3 times a day as needed for as needed for wheezing Unchanged Amlodipine 5 Milligram Oral Daily in the morning Unchanged Cholecalciferol (Vitamin D3 5000 intl units oral tablet) 1 tab(s) Oral Daily Unchanged Eletriptan (Relpax 20 mg oral tablet) 1 tab(s) Oral Unchanged Ibuprofen (ibuprofen 800 mg oral tablet) 1 tab(s) Oral Every 8 hours Unchanged Levonorgestrel (Mirena 52 mg intrauteral device) 1 Each Intrauterine Once Lot #[id number] exp ?? Unchanged Levothyroxine (Tirosint 100 mcg (0.1 mg) oral capsule) 275 Microgram Oral Daily in the morning Unchanged Lisinopril (lisinopril 10 mg oral tablet) 30 Milligram Oral Daily in the morning Unchanged Lisinopril (lisinopril 40 mg oral tablet) 1 tab(s) Oral Daily Unchanged Meclizine (meclizine 25 mg oral tablet) 1 tab(s) Oral Daily as needed for Other 90 each, 0 Refill(s), TAKE 1 TABLET BY MOUTH 3 TIMES A DAY NEEDED FOR DIZZINESS/ VERTIGO ?? Unchanged Polyethylene Glycol 3350 (MiraLax oral powder for reconstitution) 17 gram Oral Daily dissolve in water before taking ?? Unchanged Senna (senna 15 mg oral tablet, chewable) 2 tab(s) Chew Twice a day as needed for for constipation Unchanged Sumatriptan 100 Milligram Oral Once as needed for Other for migraine headaches. ?? Unchanged Tramadol (traMADol 50 mg oral tablet) 1 tab(s) Oral Every 4 hours as needed for as needed for pain Prescription Given During Visit No new medications prescribed at time of discharge.?? Laboratory Results Below is a partial list of the most recent Laboratory test results done prior to this discharge. You may have had other tests and procedures not included in this list. Please discuss all test resultswith your provider. CBC (10/13/2023) ???WBC - 9.0 k/mm3???RBC - 4.02 m/mm3???Hgb - 12.1 Gm/dL???Hct - 36.6 %???MCV - 91.0 femtoliters???MCH - 30.1 pg???MCHC - 33.1 g/dL???Platelet Count - 325 k/mm3???RDW-SD - 42.3 femtoliters???MPV - 10.6 femtoliters???Nucleated RBC (Automated) - 0.0 #/100 WBC'S???Abs. NRBC - 0.0 k/mm3 Type and Screen (10/13/2023) ???Blood Type - O Positive???Antibody Screen - Negative Allergies (NKA means No Known Allergies) oxycodone??(body shakes) Problems Active Problems??(15) Adenomyosis suspected based on imaging?? Asthma?? Herniation of lumbar intervertebral disc with radiculopathy?? History of papillary thyroid carcinoma s/p thyroidectomy 2006 (total 4.5 cm) and I131 ablation (159?? History of renal calculi?? Hypercholesterolemia?? Hypertension?? Hypothyroid?? Impaired fasting glucose?? Last Pap smear outside of [facility] system 03/2022: per report was negative with negative HPV. Denies?? Memory deficit?? Migraine?? Mirena IUD in place. IUD malpositioned on imaging 10/12/23?? Severe obesity?? Vertigo?? Education Materials Below is the list of Educational Leaflet Providered with your Discharge Instructions. Web[employer] Patient Education - Discharge Instructions for Dilation and Curettage (D and C)?? [employer] Patient Education - Dysfunctional Uterine Bleeding?? Valuables and Belongings I fully understand and agree that [facility] accepts no responsibility for all my personal property including clothing, toilet articles, radios, jewelry, dentures, hearing aids, rings, money, or any other property that is in my possession or is brought to me after admission. I understand certain valuables may be placed in a hospital safe for a short period of time. I understand that the hospital is not liable for loss or damage due to accident, fire, or other natural occurrence while said property is in the safe. I accept full responsibility for any personal property that I keep with me, and will not hold the hospital responsible in case of loss or disappearance. I acknowledge that i have been encouraged to send valuables and belongings home. ? Other Discharge Information ? Pulmonary Rehab Status?? Pulmonary Rehab Discharge Status?? Respiratory Rate: 18 br/min Respiratory Rate: 18 br/min ? Common Emergency Awareness Tips IS IT A STROKE? Act FAST and Check for these signs: FACE Does the face look uneven? ARM Does one arm drift down? SPEECH Does their speech sound strange? TIME Call at any sign of stroke ?? Heart Attack Signs Chest discomfort: Most heart attacks involve discomfort in the center of the chest and lasts more than a few minutes, or goes away and comes back. It can feel like uncomfortable pressure, squeezing, fullness or pain. Discomfort in upper body: Symptoms can include pain or discomfort in one or both arms, back, neck, jaw or stomach. Shortness of breath: With or without discomfort. Other signs: Breaking out in a cold sweat, nausea, or lightheaded. Remember, MINUTES DO MATTER. If you experience any of these heart attack warning signs, call to get immediate medical attention! ?? Smoking can increase your chances of developing chronic health problems and can cause harmful effects to other family members in your house. If you smoke, you are strongly encouraged to quit. Please call [facility] [employer] Link at [phone] or [phone] ([phone]) or log in to [email or web address] for referrals to smoking cessation programs. ?? 955 Suicide & Crisis Lifeline is available 18/10 if you or someone you know needs to find a reason to keep living. By calling 407 you'll be connected to a skilled, trained counselor at a crisis center in your area. INPATIENT DISCHARGE INSTRUCTIONS SIGNATURE PAGE MARY REYES Location:[facility] Registration Date and Time:10/13/2023 14:13 EDT Primary Care Physician: Tamela Pelaez MD, Attending Physician: Chele CASTANEDA, Mandi, MARY MARTIN, have received the above patient education materials/instructions and have verbalized understanding. If ambulance or transport services are being used I further acknowledge being given a choice of service. ?? If you need to contact me, please call me at this number: . Patient/Highway Maintainer Name: Patient/Highway Maintainer Signature: Relationship to Patient: Witness Name/Signature: Date: * Yuko Perez RN, V: PERFORM Event Display: Patient Education Leaflets Authored Date: [id number] Discharge Instructions for Dilation and Curettage (D and C) ?? [address] Discharge Instructions for Dilation and Curettage (D and C) You had a dilation and curettage (D&C). The reasons for having this procedure vary. It may be done to control heavy uterine bleeding or to find the cause of irregular bleeding. It may also be done to remove tissue after an or miscarriage. Home care ??? Take it easy. Rest for 2 days as needed. ??? Go back to your normal activities after 24 to 48 hours. You may also return to work at that time. ??? Eat a normal diet. ??? Take an [id number]-[id number] pain reliever if needed. ? ? It? s OK to have bleeding for about a week after the D&C. The amount of bleeding should be similar to what you have during a normal period. ??? Don???t drive for 24 hours after the D&C unless your provider says it's OK. ? ? Don? t have sex or use tampons or douches until your healthcare provider says it???s safe. ?? Follow-up ??? Make a follow-up appointment, or as advised. ?? When to call your healthcare provider Call your healthcare provider right away if you have any of these: ??? Bleeding that soaks more than 1 sanitary pad in 1 hour ??? Severe belly pain ??? Severe cramps ??? Fever of 100.4??F ( 38.0??C) or higher, or as directed by your provider ??? A bad-smelling vaginal discharge ?? Last Reviewed Date: 2022 ?? [id number] [employer]. All rights reserved. This information is not intended as a substitute for professional medical care. Always follow your healthcare professional's instructions. ?? * Ana WILD, Yuko Huerta: PERFORM Event Display: Patient Education Leaflets Authored Date: [id number] Dysfunctional Uterine Bleeding ?? [id number] Dysfunctional Uterine Bleeding Dysfunctional uterine bleeding is also called abnormal uterine bleeding. It's a condition in which bleeding is abnormal??and occurs at unexpected times of the month. This happens because of changes in the hormones that help control a person's menstrual cycle each month. The bleeding may be heavier or glass installer than normal. If you often have heavy bleeding, this can leadto a problem called anemia.??With anemia, your red blood cell count is too low. Red blood cells help carry oxygen throughout your body.??Severe anemia may cause you to look pale and feel very weak ortired. You might also become short of breath easily. To treat dysfunctional uterine bleeding, you may take medicines. If these don???t help, or if you have other symptoms or have reached menopause, you may need more testing and other treatments. Discuss all of your options with your healthcare provider. Home care Medicines If you???re prescribed medicines, take them as directed. Some of the more common medicines you may be prescribed include: ??? Hormone therapy, which includes most methods of hormonal control such as pills, shots, ora hormone-releasing IUD ??? Nonsteroidal anti-inflammatory drugs (NSAIDs), such as ibuprofen ??? Tranexamic acid to help your blood clot ??? Iron supplements, if you have anemia? General care ??? Get plenty of rest if you tire easily. Don't do strenuous exercise. ??? To help ease pain or cramping that may occur with bleeding, try using a heating pad on the lower belly or back. A warm bath may also help. ?? Follow-up care Follow up with your healthcare provider, or as directed. ?? When to get medical advice Call your healthcare provider right away if: ??? Bleeding becomes heavy (soaking 1 pad or tampon every hour for 3 hours) ??? Increased abdominal pain ??? Irregular bleeding gets worse or does not getbetter even with treatment ??? Fever of 100.4??F (38??C) or higher, or as directed by your healthcare provider ??? Signs of anemia, such as pale skin, extreme fatigue or weakness, or shortness of breath ??? Dizziness or fainting? Last Reviewed Date: 2022 ?? [id number] [employer]. All rights reserved. This information is not intended as a substitute for professional medical care. Always follow your healthcare professional's instructions. ?? Patient Care team information Care Team Personnel Name: Mandy Keller RN Position: [facility] RN Member Role: Primary Care Nurse Name: Natalya Urbina RN Position: [facility] RN Member Role: Primary Care Nurse Name: Luz Bae RN Position: [facility] JUAN R Nurse Member Role: Primary Care Nurse Name: Tamela Pelaez MD Position: Reference Physician Member Role: PCP Address: Address: [address] [place] [id number] Name: Nell Montague RN Position: S RN Member Role: Primary Care Nurse Name: Mildred Elaine RN, I Position: S RN Member Role: Primary Care Nurse Name: Yuko Perez RN, V Position: [facility] OB RN Member Role: Patient Care Provider Care Team Related Persons Name: JULIA NICHOLS Address: home [address] [place] [address] Name: NIKA REYES Address: home [address] [place] [address] Name: MANDIE KING Address: home [address] [place] [address]
--- OUTSIDE RECORDS SUMMARY | 2023-12-07 07:03 | XMS_ITS | Continuity of Care Document ---
Author Organization [facility] Address [address] [place] [address]- Care Team Providers Care Stock Dealer Name Role Phone Po Tamela CASTANEDA Primary Care Physician [phone] Encounter [facility] [place] 02/07/23 - 03/09/23 [facility] [address] [place] [id number] Allergies, Adverse Reactions, Alerts Substance Reaction Severity Status oxycodone body shakes Active Immunizations Given and Recorded Vaccine Date Status Refusal Reason pneumococcal 23-valent vaccine 12/08/13 Given influenza virus vaccine, inactivated 02/10/10 Give n influenza virus vaccine, inactivated 01/17/07 Give n Influenza Virus Vaccine (oldterm) 01/17/07 Given Pneumococcal Vaccine (oldterm) 1 12/14/06 Given 1Result Comment: lot [id number] exp. [id number] Medications albuterol 90 mcg/inh inhalation aerosol 2, [...] 02/08/23 10:30:00 EST, Route to Pharmacy Electronically, [facility]/pharmacy #[id number], Partial fill upon patientrequest if the [...] Refills, Maintenance, 02/08/23 10:31:00 EST, REC Powder, [facility]/pharmacy #[id number], Partial fill upon patient request if the prescription is for a schedule II opioid drug., 17 Gm By Mouth... Start Date: 02/08/23 Status: Ordered Mirena 52 mg intrauteral device 1 each = 52 mg, Intrauterine, Once, Lot #[id number] exp 11/09, # 1 each, 1 Refills, Soft Stop Start Date: 05/05/12 Status: Ordered senna 15 mg oral tablet, chewable 2 tablet = 30 mg, Chew, 2 times a day, PRN for constipation, # 18 tablet, 0 Refills, Maintenance, 02/08/23 10:31:00 EST, Chew Tablet, [facility]/pharmacy #[id number], Partial fill upon patient request if [...] 0 Refills, Maintenance, 02/08/23 10:31:00 EST, Tablet, [id number], Partial fill upon patient [...] Confirmed Active 1Sees Dr. Mary Wallace of [facility] 2Dx 11/2005. s/p thyroidectomy 2006 (total 4.5 cm) and I131 ablation (159 mCi). Social History Social History Type Response Tobacco Use: pt denies. Sex Patient Care team information Care Team Personnel Name: Mandy Keller RN Position: [facility] RN Member Role: Primary Care Nurse Name: Natalya Urbina RN Position: S RN Member Role: Primary Care Nurse Name: Luz Bae RN Position: [facility] SN RN Member Role: Primary Care Nurse Name: Tamela Pelaez MD Position: Reference Physician Member Role: PCP Address: Address: [address] [place] [id number]- Name: Nell Montague RN Position: S RN Member Role: Primary Care Nurse Name: Mildred Elaine RN, I Position: S RN Member Role: Primary Care Nurse Care Team Related Persons Name: SIMONEJACKIE LARAARA Address: [address] [place] [address] Name: NIKA REYES Address: [address] [place] [address] Name: MANDIE KING Address: home [address] [place] [address]
--- OUTSIDE RECORDS SUMMARY | 2023-12-07 07:04 | XMS_ITS | Continuity of Care Document ---
Author Organization [facility] ter Address [address] [place] [address]- Care Team Providers Care Endbander Name Role Phone Po Tamela CASTANEDA Primary Care Physician [phone] Encounter [facility] [place] Date(s): 02/10/23 - 02/10/[address] [id number] Discharge Disposition: A-D/C Home Attending Physician: Farida Hood MD Admitting Physician: Farida Hood MD Referring Physician: Farida Hood MD Allergies, Adverse Reactions, Alerts Substance Reaction Severity Status oxycodone body shakes Active Immunizations Given and Recorded Vaccine Date Status Refusal Reason pneumococcal 23-valent vaccine 12/08/13 Given influenza virus vaccine, inactivated 02/10/10 Give n influenza virus vaccine, inactivated 01/17/07 Give n Influenza Virus Vaccine (oldterm) 01/17/07 Given Pneumococcal Vaccine (oldterm) 1 12/14/06 Given 1Result Comment: lot [id number] exp. [id number] Medications acetaminophen 650 mg oral tablet, extended release 1 tablet = 650 mg, By Mouth, Every 8 hours, for 10 days, # 30 tablet, 0 Refills, Acute 02/18/23 10:30:00 EST, 02/08/23 10:30:00 EST, ER Tablet, [facility]/pharmacy #[id number], Partial fill upon patient request if the prescription is for a schedule II opioid drug.... Start Date: 02/08/23 Stop Date: 02/18/23 Status: Ordered albuterol 90 mcg/inh inhalation aerosol [...] 02/08/23 10:30:00 EST, Route to Pharmacy Electronically, [facility]/pharmacy #[id number], Partial fill upon patientrequest if the [...] Refills, Maintenance, 02/08/23 10:31:00 EST, REC Powder, [facility]/pharmacy #[id number], Partial fill upon patient request if the prescription is for a schedule II opioid drug., 17 Gm By Mouth... Start Date: 02/08/23 Status: Ordered Mirena 52 mg intrauteral device 1 each = 52 mg, Intrauterine, Once, Lot #[id number] exp 11/09, # 1 each, 1 Refills, Soft Stop Start Date: 05/05/12 Status: Ordered morphine 15 mg oral tablet, immediate release 1 tablet = 15 mg, By Mouth, Every 6 hours, PRN as needed for pain, # 6 tablet, 0 Refills, Acute 02/23/23 0:00:00 EST, 02/10/23 10:13:00 EST, Tablet, [facility]/pharmacy #1972, Partial fill upon patient request if the prescription is for a schedule II opioid... Start Date: 02/10/23 Stop Date: 02/23/23 Status: Ordered MorPHINE Immediate Release Tablet 15 mg, Tablet, By Mouth, Every 4 hours, PRN for Pain , Moderate, STAT, 02/10/23 11:55:00 EST Start Date: 02/10/23 Stop Date: 02/10/23 Status: Discontinued senna 15 mg oral tablet, chewable 2 tablet = 30 mg, Chew, 2 times a day, PRN for constipation, # 18 tablet, 0 Refills, Maintenance, 02/08/23 10:31:00 EST, Chew Tablet, [facility]/pharmacy #1972, Partial fill upon patient request if [...] 0 Refills, Maintenance, 02/08/23 10:31:00 EST, Tablet, [facility]/pharmacy #1972, Partial fill upon patient request if [...] Confirmed Active 1Sees Dr. Mary Wallace of [facility] 2Dx 11/2005. s/p thyroidectomy 2006 (total 4.5 cm) and I131 ablation (159 mCi). Vital Signs Most recent to oldest [Reference Range]: 1 2 Height 154.94 cm (02/10/23 11:35 AM) Oxygen Saturation [94-100 %] 98 % (02/10/23 11:29 AM) Pulse Rate [55-90 bpm] 85 bpm (02/10/23 11:29 AM) Blood Pressure [90-138/55-84 mm Hg] 139/ 87mm Hg *H* (02/10/23 11:29 AM) Respiratory Rate [16-30 br/min] 19 br/mi n (02/10/23 12:41 PM) 18 br/min (02/10/23 11:29 AM) Temperature [96.8-100.4 DegF] 98.3 DegF (02/10/23 11:29 AM) Blood pressure sites Arm, right (02/10/23 11:29 AM) Temperature Route Oral (02/10/23 11:29 AM) Dry Weight 103.1 kg (02/10/23 11:29 AM) Dry Weight Obtained Via Standing scale (02/10/23 11:29 AM) Social History Social History Type Response Tobacco Use: pt denies. Sex History and physical note * Mathieu Rosario DO: PERFORM Event Display: History and Physical Hospital Authored Date: Patient: ??MARY REYES ? Age:??47 Years?Sex:??Female?:??1975?? History of Present Illness Patient is a 47-year-old that is??postop day??2 from an uncomplicated robotic assisted??left salpingo-oophorectomy and right salpingectomy??presents to [facility] for complaints of left??lower quadrant pain.?? She states that the pain started yesterday and postop day 1 and she took tramadol twice throughout the day with??moderate improvement in her pain.?? The pain significantly worsened towards the end of the day??and she was advised??by??the clinic to??take[facility] ??She states after taking it she??was able to get reduction in her pain to the point where she is able to sleep throughout the night.?? She states that this morning the pain has continued to be quite uncomfortable and she denies having taken any??narcotic pain medicine; she takes ibuprofen and Tylenol.?? She denies any??changes in urinary habits, denies hematuria, dysuria. ??Additionally she reports that she is passing flatus and stool without difficulty.?? Most recent episode of stool was yesterday and it was??normal for her. ??She denies any hematochezia, melena, nausea, vomiting, fever, chills. Review of Systems Constitutional, Eye, Skin, Head/Neck, ENMT, Respiratory, Cardio, Gastrointestinal, Breast, Gynecologic, Genitourinary, Endocrine, Musculoskeletal, Immunologic, Hematologic, Lymphatic, Neurologic, Psych reviewed and negative except as noted in HPI. Physical Exam Vitals & Measurements T:??98.3?F?? HR:??85??(Peripheral)?? RR:??19?? BP:??139/87?? SpO2:??98%?? HT:??154.94??cm?? General: pleasant, alert, cooperative, NAD HEENT: Normocephalic/atraumatic Cardiac: Regular rate and rhythm.?? No murmurs Respiratory: unlabored breathing, clear to auscultation bilaterally Abdominal: Soft, non-distended.?? Tender to palpation along 12mm port incision.?Patient's 5??robotic incisions??with bruising and healing appropriately. ??No evidence of erythema, swelling, purulence. Neurologic: No focal neurological deficits.??Moves all extremities spontaneously. Extremities: Symmetrical muscle bulk, no visible erythema or edema.?? Psych: Mood and affect stable, appearance appropriate, good eye contact, talkative Assessment/Plan Assessment:??Patient is a 47-year-old that is postop day 2 from an uncomplicated robotic assisted left salpingo-oophorectomy and right salpingectomy presents to [facility] for complaints of left lower quadrant pain.?Patient's vital signs on [facility] are within normal limits.??Patient's physical exam does not demonstrate any evidence of peritoneal signs; however, patient with significant tenderness to palpation??along her 12 mm??port incision.??Suspect patient's pain is most likely secondary to the degree of manipulation??through the 12 mm port during her surgery required in order to remove her ovarian mass. However,??given the degree of discomfort,??p.o. morphine given??CBC and BMP were drawn which were within normal limits without any evidence of leukocytosis, anemia,??elevated creatinine.??Patient's pain significantly improved??following the p.o. morphine and given her reassuring vital signs, reassuring labs??improvement in discomfort suspect the patient was ultimately behind on??pain control given her limited??tramadol use and goal of avoiding narcotics as much as possible.??Given this improvement, patient was appropriate for discharge at this time. ?? OB History History?(0,0,0,0)?No previous pregnancies history have been recorded Active Problem List Active Problem List : (Freetext) : (Freetext) : (Freetext) Herniation of lumbar intervertebral disc with radiculopathy: (Medical) Hypertension: (Medical) Papillary thyroid carcinoma: (Medical) Dx 11/2005. s/p thyroidectomy 2005 (total 4.5 cm) and I131 ablation ([address] Mary Wallace of [facility] Pelvic mass: (Medical) Severe obesity: (Medical) Procedure/Surgical History Suprapubic sling operation section Cholecystectomy Bladder operation Lymph node operation Bilateral tubal ligation Thyroidectomy Arthrodesis, combined posterior or posterolateral technique with posterior interbody technique including laminectomy and/or discectomy sufficient to prepare interspace (other than for decompression),single interspace and segment; lumbar Home Medications Acetaminophen: 1,000 mg = 2 tablet, By Mouth, 3 times a day, PRN (as needed for pain) Acetaminophen: 650 mg = 1 tablet, By Mouth, Every 8 hours Albuterol: 2 puffs, 3 times a day, PRN (as needed for wheezing) Amlodipine: 5 mg, By Mouth, Daily in AM Cholecalciferol: 5,000 International_Units = 1 tablet, By Mouth, Daily Ibuprofen: 800 mg = 1 tablet, By Mouth, Every 8 hours Levonorgestrel: 52 mg = 1 each, Intrauterine, Once, Lot #[id number] exp 11/09 Levothyroxine: 275 mcg, By Mouth, Daily in AM Lisinopril: 30 mg, By Mouth, Daily in AM Meclizine: 25 mg = 1 tablet, By Mouth, Daily, PRN (Other), 90 each, 0 Refill(s), TAKE 1 TABLET BY MOUTH 3 TIMES A DAY NEEDED FOR DIZZINESS/VERTIGO Morphine: 15 mg = 1 tablet, By Mouth, Every 6 hours, PRN (as needed for pain) Polyethylene Glycol 3350: 17 Gm, By Mouth, Daily, dissolve in water before taking Senna: 30 mg = 2 tablet, Chew, 2 times a day, PRN (for constipation) Sumatriptan: 100 mg, By Mouth, Once, PRN (Other), for migraine headaches. Tramadol: 50 mg = 1 tablet, By Mouth, Every 4 hours, PRN (as needed for pain) Allergies oxycodone??(body shakes) Social History Alcohol Use: pt denies. Employment/School Status: Employed. 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 Exercise Self assessment: Good condition. Exercise type: Walking. Home/Environment Living situation: Home/Independent. Lives with: Children, Significant other. Nutrition/Health Diet: Regular. Sexual Sexually involved in last 6 months: Yes. Substance Abuse Use: pt denies. Tobacco Use: pt denies. Family History Father (Isac, ): CAD - Coronary artery disease; Liver failure * Farida Hood MD: PERFORM Event Display: History and Physical Hospital Authored Date: Attending attestation: I have seen and evaluated this patient.?? I have discussed the case and its management with the resident and agree with the findings and plan as documented in the resident's note ?? felt better and desired DC post morphine. tender at LUQ incision but no concerning collections or concern for hernia on exam. normal labs. return precautions discussed ?? Farida Hood MD Gynecologic Oncology Attending Note * Eva Scott RN: PERFORM Event Display: Discharge/Transfer Note Hospital Authored Date: [id number] Nursing Discharge Note Entered On: 02/10/2023 13:51 EST Performed On: 02/10/2023 13:50 EST by Eva Scott RN Nursing Discharge Note 2 Discharge Time : 02/10/2023 13:50 EST Discharge Level of Care at Discharge : Home/Retirement/Foster Care Patient Left Unit Via : Ambulatory Patient Accompanied Off Unit with : Other: alone - pt's father in parking lot to drive patient home DC Instructions Provided & Signed by Pt : Yes Patient Understands D/C Instructions : Yes Patient Instructions Discharge Signed : Yes Did Pt have Specialty Bed or Wound Vac : No Eva Scott RN - 02/10/2023 13:50 EST * Eva Scott RN: PERFORM Event Display: Patient Education/Instruction Authored Date: [id number] Inpatient Adult Discharge Instructions [address] [address] Name: MARY REYES : 1975 Visit: 02/10/2023 11:12:00 Current Date: 02/10/2023 13:44 Account: [id number] Inpatient Adult Discharge Instructions We would like [...] and their families. Surveys are administered by [employer] ?? If further treatment with your primary care physician or another doctor is recommended, it is important for you to keep the appointment. Call your primary care physician or return to the Emergency Department immediately if your condition worsens, fails to improve, or new symptoms develop. If you need to find a doctor, you can call [facility] Link for a referral at [phone] or toll free at [phone]) or log in to [email or web address].. ?? [facility], in keeping with [facility] guidance, no longer requires face masks for [...] a health care frances of your choosing. [employer] is a website that allows you to securely view your medical information including your hospital discharge summary, office visit summaries, medications and follow-up visits. You can also request appointments, renew medications, and request access to your medical information using a health care frances of your choosing, or just ask a question. You can enroll at [email or web address] or register during your next office visit. You have been discharged from [facility], Patient Care Unit: [facility]. If you have any questions regarding these instructions after you leave, please call us and we will be happy to assist you. 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 You may have had other tests and procedures not included in this list. Please discuss all test results with your provider. CBC w/ Differential Primary Care Provider Tamela Pelaez MD Advance Directive Health Care Proxy on File No Patient refuses to discuss Discharge Vitals Temperature: 98.3 DegF Height: 154.94 cm Pulse Rate: 85 bpm ?? Respiratory Rate: 19 br/min ?? Systolic Blood Pressure:??139 mm Hg??High ?? Diastolic Blood Pressure:??87 mm Hg??High ?? Oxygen Saturation: 98 % ?? Studies Pending All tests and labs ordered during this hospital stay have been completed unless listed below. Please discuss all pending results with your provider listed above in these instructions. ?? Basic Metabolic Panel What to do next Instructions From Your Doctor Discharge Orders Scheduled Follow-Up Appointments Tuesday 11:00 AM EST ?? 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 Medications not listed below should be discontinued. Discuss any questions related to medications with your provider. What How Much When Instructions Next Dose Unchanged Acetaminophen (acetaminophen 650 mg oral tablet, extended release) 1 tab(s) Oral Every 8 hours Duration: 10 Days Unchanged Acetaminophen (Tylenol Extra Strength 500 mg [...] oral tablet) 1 tab(s) Oral Daily Unchanged Ibuprofen (ibuprofen 800 mg oral tablet) 1 tab(s) Oral Every 8 hours Unchanged Levonorgestrel (Mirena 52 mg intrauteral device) 1 Each Intrauterine Once Lot #[id number] exp ?? Unchanged Levothyroxine (Tirosint 100 mcg (0.1 mg) oral capsule) 275 Microgram Oral Daily in the morning Unchanged Lisinopril (lisinopril 10 mg oral tablet) 30 Milligram Oral Daily in the morning Unchanged Meclizine (meclizine 25 mg oral tablet) 1 tab(s) Oral Daily as needed for Other 90 each, 0 Refill(s), TAKE 1 TABLET BY MOUTH 3 TIMES A DAY NEEDED FOR DIZZINESS/ VERTIGO ?? Unchanged Morphine (morphine 15 mg oral tablet, immediate release) 1 tab(s) Oral Every 6 hours as needed for as needed for pain Unchanged Polyethylene Glycol 3350 (MiraLax oral powder [...] as needed for as needed for pain Test Results Below is a partial list of the most recent Laboratory test results done prior to this discharge. You may have had other tests and procedures not included in this list. Please discuss all test resultswith your provider. CBC w/ Differential (02/10/2023) ???WBC - 9.4 k/mm3???RBC - 4.25 m/mm3???Hgb - 12.4 Gm/dL???Hct - 37.7 %???MCV - 88.7 femtoliters???MCH - 29.2 pg???MCHC - 32.9 g/dL???Platelet Count - 366 k/mm3???RDW-SD - 38.5 femtoliters???MPV - 9.5 femtoliters???Nucleated RBC (Automated) - 0.0 #/100 WBC'S???Abs. NRBC - 0.0 k/mm3???Abs. Neut - 5.9 k/mm3???Abs. Lymph - 2.6 k/mm3???Abs. Wallace - 0.7 k/mm3???Abs. Eo - 0.1 k/mm3???Abs. Baso - 0.1 k/mm3???Neut % - 62.7 %???Lymph % - 27.5 %???Wallace % - 7.3 %???Eos % - 1.4 %???Baso % - 0.6 %???Imm Gran- 0.5 %???Abs. Imm Gran - 0.1 k/mm3 Allergies (NKA means No Known Allergies) oxycodone??(body shakes) Problems Active Problems??(8) Asthma?? Herniation of lumbar intervertebral disc with radiculopathy?? Hypertension?? Hypothyroid?? Obesity?? Papillary thyroid carcinoma?? Pelvic mass?? Severe obesity?? Education Materials Below is the list of Educational Leaflet Providered with your Discharge Instructions. Managing Post-Op Pain at Home: Medicines?? Managing Post-Op Pain at Home: Non-Medicine Relief?? Valuables and Belongings I fully understand and agree that [facility] accepts no responsibility for all my [...] Status?? Pulmonary Rehab Discharge Status?? Respiratory Rate: 19 br/min ? Common Emergency Awareness Tips IS [...] are strongly encouraged to quit. Please call [facility] [employer] Link at [phone] or [phone]) or log in to [email or web address] for referrals to smoking cessation programs. ?? 116 Suicide & Crisis Lifeline is available 18/10 if you or someone you know needs to find a reason to keep living. By calling 812 you'll be connected to a skilled, trained counselor at a crisis center in your area. INPATIENT DISCHARGE INSTRUCTIONS SIGNATURE PAGE MARY REYES Location:[facility] Registration Date and Time:02/10/2023 11:12 EST Primary Care Physician: Tamela Pelaez MD, Attending Physician: Farida Hood MD, I MARY REYES, have received the above patient education materials/instructions and have verbalized understanding. If ambulance or transport services are being used I further acknowledge being given a choice of service. ?? If you need to contact me, please call me at this number: . Patient/Stock Raiser Name: Patient/Stock Raiser Signature: Relationship to Patient: Witness Name/Signature: Date: * Eva Scott RN: PERFORM Event Display: Patient Education Leaflets Authored Date: [id number] Managing Post-Op Pain at Home: Non-Medicine Relief ?? [address] Managing Post-Op Pain at Home: Non-Medicine Relief Medicines are not the only way to ease pain after surgery. Try these methods instead of pain medicine or to lower the amount of pain medicine you need. Visualization or guided imagery Visualization helps take your mind off the pain: ??? Close your eyes. Breathe deeply. ??? Picture yourself in a quiet, peaceful place. ??? Imagine how you feel in that place. ??? If other thoughts come into your mind, take a deep breath and try again. ?? Progressive body relaxation Relaxation helps ease stress and pain: ??? Close your eyes. Clench your foot muscles. ??? Hold for a few seconds. Release. ??? Repeat with the muscles in your calves. ??? Work slowly up your body. Tense and relax different muscle groups from your belly, chest, arms, neck, and face. ?? Deep breathing Deep breathing relaxes your whole body: ??? Inhale through your nose??slowly and deeply. ??? Hold your breath for a few seconds. ??? Exhale through your mouth slowly and deeply. ??? Repeat 3 more times. ?? Last Reviewed Date: 2021 ?? [employer]. All rights reserved. This information is not intended as a substitute for professional medical care. Always follow your healthcare professional's instructions. ?? * Eva Scott RN: PERFORM Event Display: Patient Education Leaflets Authored Date: [id number] Managing Post-Op Pain at Home: Medicines ?? [address] Managing Post-Op Pain at Home: Medicines Pain after an operation (post-op pain) is??common and expected. These guidelines can help you stay as comfortable as possible. Taking pain medicines ??? Take only the medicines that your healthcare provider tells you to take. ??? Take medicines on time. Don't take more than prescribed. ??? Take pain medicines with some food to prevent an upset stomach. ??? Don???t drink alcohol while using pain medicines. ??? Don't drive while taking opioid pain medicines.? Types of pain medicines Non-opioid ??? Check with your healthcare provider before taking any ydan-kvu-bswtkke (OTC) pain reliever in addition to or instead of your prescribed pain medicine. ??? Non-opioids include OTC acetaminophen and ibuprofen and some prescription pain relievers. ??? All relieve mild to moderate pain, and some reduce swelling. ??? Possible side effects include stomach upset and bleeding. High doses may cause kidney or liver problems. Opioid ??? Opioids are available only by prescription. ??? Opioids ease moderate to severe pain. ??? Possible side effects include stomach upset, nausea, drowsiness, rash, and itching. ??? Opioids may cause constipation. To help prevent this, eat high-fiber foods and drink plenty of water. ??? Yourhealthcare provider may recommend a stool softener. ??? Don't drive, make important decisions, or operate machinery while taking opioids. ?? When to call your healthcare provider Call your healthcare provider or seek medical attention right away??if you notice any of these symptoms: ??? Nausea, vomiting, diarrhea, constipation, or stomach cramps ??? Breathing problems or a fast heart rate ??? Feeling tired, sluggish, or dizzy ??? Skin rash or other allergic symptoms ??? Pain that is not eased with the pain medicine ?? Last Reviewed Date: 2021 ?? 0144-9247 [employer]. All rights reserved. This information is not intended as a substitute for professional medical care. Always follow your healthcare professional's instructions. ?? Patient Care team information Care Team Personnel Name: Mandy Keller RN Position: [facility] RN Member Role: Primary Care Nurse Name: Natalya Urbina RN Position: S RN Member Role: Primary Care Nurse Name: Luz Bae RN Position: [facility] RN Member Role: Primary Care Nurse Name: Tamela Pelaez MD Position: Reference Physician Member Role: PCP Address: Address: [address] [place] [address]- Name: Nell Montague RN Position: S RN Member Role: Primary Care Nurse Name: Mildred Elaine RN, I Position: S RN Member Role: Primary Care Nurse Care Team Related Persons Name: SIMONEJULIA LARA Address: home [address] [place] [address] Name: NIKA REYES Address: [address] [place] [address] Name: MADISON MAZARIEGOS Address: [place] [address]
--- OUTSIDE RECORDS SUMMARY | 2023-12-07 07:04 | XMS_ITS | Continuity of Care Document ---
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 IUD malpositioned on imaging 10/12/23(Discharge Diagnosis) - 10/12/23 Encounter for IUD removal(Discharge Diagnosis) - 10/12/23 Discharge Disposition: A-D/C Home Attending Physician: Selina Peres MD Admitting Physician: Selina Peres MD Referring Physician: Not on Staff, Referring [...] 12/14/06 Given 1Result Comment: lot [id number] exp. [id number] Medications acetaminophen-hydrocodone 300 mg-5 mg oral tablet [...] 02/08/23 10:30:00 EST, Route to Pharmacy Electronically, [facility]/pharmacy #[id number], Partial fill upon patientrequest if the [...] Refills, Maintenance, 02/08/23 10:31:00 EST, REC Powder, [facility]/pharmacy #[id number], Partial fill upon patient request if the prescription is for a schedule II opioid drug., 17 Gm By Mouth... Start Date: 02/08/23 Status: Ordered Mirena 52 mg intrauteral device 1 each = 52 mg, Intrauterine, Once, Lot #[id number] exp 08/15, # 1 each, 1 Refills, Soft Stop Start Date: 05/05/12 Status: Ordered MorPHINE Inj 4 mg, Injection, IV Push Slowly, Every 5 minutes for 3 doses/times, PRN for Pain , Moderate, and SBP greater than 100, Routine, 10/12/23 3:53:00 EDT, Stop date Limited # of times Start Date: 10/12/23 Stop Date: 10/12/23 Status: Discontinued Relpax 20 mg oral tablet 1 tablet [...] Refills, Maintenance, 02/08/23 10:31:00 EST, Chew Tablet, [facility]/pharmacy #[id number], Partial fill upon patient request if [...] Confirmed Active Last Pap smear outside of [facility] system 03/2022: per report was negative with negative HPV. Denies prior abnormal Paps Confirmed Active Severe obesity Confirmed Active Adenomyosis suspected based on imaging Confirmed Active Vertigo Confirmed Active 1Sees Dr. Mary Wallace of [facility] 2Dx 11/2005. s/p thyroidectomy 2006 (total 4.5 cm) and I131 ablation (159 mCi). Diagnosis Diagnosis Type Effective Dates Health Status Clinical Service Informant Mirena IUD in place. IUD malpositioned on imaging 10/12/23 Discharge Diagnosis 10/12/23 Encounter for IUD removal Discharge Diagnosis 10/12/23 Results Radiology Reports * Exam Date Time Procedure Performing Provider Status 10/12/23 4:[address] Abd/Pelvis W/ IV Contrast Only Antonia Walker; Auth (Verified) Notes: (CT Abd/Pelvis W/ IV Contrast Only) Reason For Exam: LLQ abdominal pain;Other: RESULT: CT Abd/Pelvis W/ IV Contrast Only CT Abd/Pelvis W/ IV Contrast Only Hx of Present Illness: lower abd and L flank pain; Reason: Other:; LLQ abdominal pain; Clinical Question(s): Other:; Order Comment: TECHNIQUE: Spiral CT through the abdomen and pelvis with IV contrast formatted in 3 planes. 100 cc of Omnipaque 300 was administered intravenously. This study was performed without oral contrast. Weight-based protocol using automatic tube modulation was used to optimize exposure parameters. CTDIvol Body: 20.40 mGy, DLP Body: 1120 mGy*cm. COMPARISON: 03/24/2016 FINDINGS: [place] Findings, Lines and Tubes: None. Visualized Chest: Mild dependent atelectasis. No pleural effusion. The heart is normal in size. No pericardial effusion. Diaphragm: Normal. Nonenlarged lymph node adjacent to the distal esophagus measuring 6 mm. Liver: Diffuse low-attenuation throughout the liver parenchyma consistent with hepatic steatosis. No evidence of mass. Gallbladder: Absent consistent with prior cholecystectomy. Bile ducts: No biliary ductal dilation. Spleen: Normal. Accessory splenic tissue is incidentally noted. Pancreas: Normal. Adrenal glands: Right adrenal nodule measuring 2.6 cm, increased in size since 03/24/2016 where it measured 1.6 cm. Unremarkable left adrenal gland Kidneys and ureters: No hydronephrosis, stones, or suspicious masses. Bladder: Normal. Reproductive organs: Mild enlargement of the uterus diffusely. Endometrial thickness measuring 1.3 cm. With mixed internal material which can represent blood products and fluid related to patient's cycle/premenopausal status. Abnormal position of the intrauterine device. The IUD is located in the lower uterine segment with oblique orientation. The body of the IUD couldbe embedded within the lower left uterus. The device is tilted with the body towards the left and top of the arms towards the right. Stomach, small bowel, and large bowel: Normal caliber stomach and bowel. No evidence of obstructionor surrounding inflammatory changes. Appendix: Normal. Peritoneum and retroperitoneum: No ascites or pneumoperitoneum. No omental or mesenteric lesions. Lymph nodes: No enlarged lymph nodes. Blood vessels: Mild vascular calcifications but no aneurysm. No evidence of venous thrombosis. Abdominal and pelvic wall: Tiny fat-containing umbilical hernia. Bones: No acute abnormality. Status post posterior fusion of L5-S1. IMPRESSION: 1. No acute abnormality in the abdomen or pelvis. 2. Abnormal position of intrauterine device. IUD is tilted and within the lower uterine segment. The lower aspect of the body portion could be embedded. Readjustment is recommended. Recommend patientcounseling for use of secondary contraceptive in the interim. 3. Increased size of the right adrenal gland nodule now measuring up to 2.6 cm. Biochemical evaluation should be considered if not previously/more recently performed. Previously recommendation is made for complete characterization. Please evaluate if this has been performed elsewhere/outside. If not confirmed complete characterization with adrenal protocol MRI or CT is recommended. An actionable message (Yellow) has been communicated via the [employer] system on 10/12/2023 8:07 AM, Message ID [id number]. I have personally reviewed the images and I agree with this report. WSN: [id number] Ordering Physician: Renetta Angel Dictated By: Britt Johnson DO Dictated Date/Time: 10/12/23 8:07 am Reviewed By: Tania Bennett MD Signed By: Tania Bennett MD Signed Date/Time: 10/12/23 8:12 am Transcribed By: CHAYA Transcribed Date/Time: 10/12/23 5:28 am * Exam Date Time Procedure Performing Provider Status 10/12/23 4:28 AM US Pelvic Doppler Comp Rafael Anderson; Sj (Verified) Notes: (US Pelvic Doppler Comp) Reason For Exam: Pelvic Pain;Other: RESULT: US Pelvic Doppler Comp US Pelvic Transabdominal, US Pelvic Transvaginal, US Pelvic Doppler Comp Hx of Present Illness: lower abd and L flakn pain; Reason: Other:; Pelvic Pain; Clinical Question(s): Torsion; COMPARISON: CT abdomen/pelvis 10/12/2023 TECHNIQUE: Transabdominal and transvaginal pelvic ultrasound with grayscale, color Doppler, and spectral Doppler analysis. FINDINGS: UTERUS: Size: 10.3 x 5.8 x 6.9 cm, volume 216.6 cc. Endometrial thickness: 0.3 cm. IUD present with limited visualization to determine positioning. This is limited by shadowing from a scar and position of the uterus. Morphology: Normal configuration and echotexture. Multiple nabothian cysts. C- section scar present. RIGHT OVARY: Size: 2.8 x 2.1 x 2.0 cm, volume 6.3 cc. Morphology: Normal echotexture. No pathologic cysts or mass. Normal arterial and venous waveforms. LEFT OVARY: Surgically absent. ADNEXA: Normal. No adnexal masses or fluid collections. IMPRESSION: 1. No evidence of right ovarian torsion. 2. Surgically absent left ovary. 3. Limited visualization of IUD to determine positioning. I have personally reviewed the images and I agree with this report. WSN: [id number] Ordering Physician: Renetta Angel Dictated By: Britt Johnson DO Dictated Date/Time: 10/12/23 6:08 am Reviewed By: Tania Bennett MD Signed By: Tania Bennett MD Signed Date/Time: 10/12/23 6:13 am Transcribed By: CHAYA Transcribed Date/Time: 10/12/23 5:10 am * Exam Date Time Procedure Performing Provider Status 10/12/23 4:28 AM US Pelvic Transvaginal Rafael Anderson; Sj (Verified) Notes: (US Pelvic Transvaginal) Reason For Exam: Pelvic Pain;Other: RESULT: US Pelvic Transvaginal US Pelvic Transabdominal, US Pelvic Transvaginal, US Pelvic Doppler Comp Hx of Present Illness: lower abd and L flakn pain; Reason: Other:; Pelvic Pain; Clinical Question(s): Torsion; COMPARISON: CT abdomen/pelvis 10/12/2023 TECHNIQUE: Transabdominal and transvaginal pelvic ultrasound with grayscale, color Doppler, and spectral Doppler analysis. FINDINGS: UTERUS: Size: 10.3 x 5.8 x 6.9 cm, volume 216.6 cc. Endometrial thickness: 0.3 cm. IUD present with limited visualization to determine positioning. This is limited by shadowing from a scar and position of the uterus. Morphology: Normal configuration and echotexture. Multiple nabothian cysts. C- section scar present. RIGHT OVARY: Size: 2.8 x 2.1 x 2.0 cm, volume 6.3 cc. Morphology: Normal echotexture. No pathologic cysts or mass. Normal arterial and venous waveforms. LEFT OVARY: Surgically absent. ADNEXA: Normal. No adnexal masses or fluid collections. IMPRESSION: 1. No evidence of right ovarian torsion. 2. Surgically absent left ovary. 3. Limited visualization of IUD to determine positioning. I have personally reviewed the images and I agree with this report. WSN: [id number] Ordering Physician: Renetta Angel Dictated By: Britt Johnson DO Dictated Date/Time: 10/12/23 6:08 am Reviewed By: Tania Bennett MD Signed By: Tania Bennett MD Signed Date/Time: 10/12/23 6:13 am Transcribed By: CHAYA Transcribed Date/Time: 10/12/23 5:10 am * Exam Date Time Procedure Performing Provider Status 10/12/23 4:28 AM US Pelvic Transabdominal JustinShun garciamissy almaraz; Sj (Verified) Notes: (US Pelvic Transabdominal) Reason For Exam: Pelvic Pain;Other: RESULT: US Pelvic Transabdominal US Pelvic Transabdominal, US Pelvic Transvaginal, US Pelvic Doppler Comp Hx of Present Illness: lower abd and L flakn pain; Reason: Other:; Pelvic Pain; Clinical Question(s): Torsion; COMPARISON: CT abdomen/pelvis 10/12/2023 TECHNIQUE: Transabdominal and transvaginal pelvic ultrasound with grayscale, color Doppler, and spectral Doppler analysis. FINDINGS: UTERUS: Size: 10.3 x 5.8 x 6.9 cm, volume 216.6 cc. Endometrial thickness: 0.3 cm. IUD present with limited visualization to determine positioning. This is limited by shadowing from a scar and position of the uterus. Morphology: Normal configuration and echotexture. Multiple nabothian cysts. C- section scar present. RIGHT OVARY: Size: 2.8 x 2.1 x 2.0 cm, volume 6.3 cc. Morphology: Normal echotexture. No pathologic cysts or mass. Normal arterial and venous waveforms. LEFT OVARY: Surgically absent. ADNEXA: Normal. No adnexal masses or fluid collections. IMPRESSION: 1. No evidence of right ovarian torsion. 2. Surgically absent left ovary. 3. Limited visualization of IUD to determine positioning. I have personally reviewed the images and I agree with this report. WSN: [id number] Ordering Physician: Renetta Angel Dictated By: Britt Johnson DO Dictated Date/Time: 10/12/23 6:08 am Reviewed By: Tania Bennett MD Signed By: Tania Bennett MD Signed Date/Time: 10/12/23 6:13 am Transcribed By: CHAYA Transcribed Date/Time: 10/12/23 5:10 am Vital Signs Most recent to oldest [Reference Range]: 1 2 3 Height 155 cm (10/12/23 9:54 AM) 155 cm (10/11/23 10:30 PM) 155 cm (10/11/23 8:24 PM) Weight 99.5 kg (10/12/23 9:54 AM) 99.5 kg (10/11/23 10:30 PM) 99.5 kg (10/11/23 8:24 PM) Oxygen Saturation [94-100 %] 100 % (10/12/23 9:54 AM) 98 % (10/12/23 7:03 AM) 98 % (10/12/23 2:16 AM) Pulse Rate [55-90 bpm] 66 bpm (10/12/23 9:54 AM) 71 bpm (10/12/23 7:03 AM) 67 bpm (10/12/23 2:16 AM) Body Mass Index [18.5-24.99 kg/m2] 41.42 kg/m2 *>HHI* (10/12/23 9:54 AM) 41.42 kg/m2 *>HHI* (10/11/23 8:24 PM) Blood Pressure [90-138/55-84 mm Hg] 125/76mm Hg (10/12/23 9:54 AM) 122/76mm Hg (10/12/23 7:03 AM) 133/82mm Hg (10/12/23 2:16 AM) Respiratory Rate [16-30 br/min] 19 br/min (10/12/23 9:54 AM) 18 br/min (10/12/23 7:03 AM) 18 br/min (10/12/23 3:30 AM) Temperature [96.8-100.4 DegF] 98.0 DegF (10/12/23 9:54 AM) 98.7 DegF (10/12/23 7:03 AM) 98.3 DegF (10/12/23 2:16 AM) Mode of Delivery (Oxygen) Room air (10/12/23 9:54 AM) Room air (10/11/23 8:24 PM) Blood pressure sites Arm, right (10/12/23 9:54 AM) Arm, left (10/12/23 7:03 AM) Arm, left (10/12/23 2:16 AM) Temperature Route Oral (10/12/23 9:54 AM) Oral (10/12/23 7:03 AM) Oral (10/12/23 2:16 AM) Dry Weight 99.5 kg (10/12/23 9:54 AM) 99.5 kg (10/11/23 10:30 PM) 99.5 kg (10/11/23 8:24 PM) Weight Obtained Via Standing scale (10/11/23 8:24 PM) Dry Weight Obtained Via Standing scale (10/11/23 8:24 PM) Social History Social History Type Response Smoking Status Never (less than 100 in lifetime) entered on: 10/12/23 Sex EKG study * Event Display: ECG 12-Lead Authored Date: Please click on pdf link to open report * Event Display: ECG 12-Lead Authored Date: Ventricular Rate: 78 BPM Atrial Rate: 78 BPM P-R Interval: 144 ms QRS Duration: 90 ms Q-T Interval: 374 ms QTC Calculation(Bazett): 426 ms P [place]: 9 degrees R [place]: 10 degrees T [place]: 25 degrees Normal sinus rhythm Normal ECG When compared with ECG of 06-DEC-2021 09:20, No significant change was found Confirmed by NINI TEJEDA MD ([id number]) on 10/12/2023 9:36:18 AM [place]: NINI TEJEDA MD Consult note * Noemi Hughes DO: PERFORM Event Display: Consultation Note Authored Date: Patient: ??ALICIA REYES ? Age:??48 Years?Sex:??Female?:??1975?? Referring Provider Selina Peres MD Chief Complaint Lower abdominal pain and vaginal bleeding History of Present Illness Alicia is a that presented to the emergency department??with abdominal pain and vaginal bleeding.?? On CT and ultrasound imaging,??IUD??found to be in an abnormal position.?? Gynecology consulted??for recommendations and further management. ?? Reports bleeding started Tuesday, initially??small amounts of blood.?? This was concerning to her asshe has been amenorrheic??with her??Mirena IUD.?? Later that day, she had intercourse??that was not??painful??and did not have increased bleeding at that time.?? However as the day progressed,??she reports having significant lower pelvic??cramping??and heavy vaginal bleeding.?Reports the cramping??is intermittent but persistent, currently??11/04. ??She tried??ibuprofen, Tylenol, Midol??for the cramping sensation with minimal improvement.?? She says the pain has worsened??over the past couple days??and is now radiating??to her lower back on the left side.?? She reports the morphine given to her in the ED??did help with the pain.?? Her bleeding has become heavier,??reporting??having to change??her tampon??3 times in an hour??for multiple hours??yesterday. ?? Denies fever, chills,??vomiting, diarrhea.?? Reports intermittent nausea??believed to be??associated with??pain.?She denies abnormal or foul- smelling discharge, vaginal itching or irritation.?? She denies dysuria,??urgency,??frequency, or incontinence. ?? She sees Dr. Crabtree??at [facility]??and discussed her symptoms with their office??and told her to present to the emergency department.?She has been in contact with office staff and??is in the process of getting an appointment scheduled.?She started using??the hormonal IUD many years ago??for her??heavy menses and dysmenorrhea.?? Reports that her Mirena??IUD??was replaced in 2022.?Reports being amenorrheic??since??approximately early ??when first starting??hormonal therapy with IUD. ?? 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 Also reports prior history of 2 sling procedures.?? Denies ongoing??urinary issues.?She reports??past medical history??of??hypertension,??hyperlip idemia,??mild intermittent asthma,??vertigo,??migraines without aura,??history of??thyroid cancer??with subsequent??thyroidectomy.?Obstetric history, surgical history, family history, social history??updated??in chart??as appropriate. ?? 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 Physical Exam Vitals & Measurements T:??98.0?F?? HR:??66??(Peripheral)?? RR:??19?? BP:??125/76?? SpO2:??100%?? HT:??155??cm?? WT:??99.5??kg?? BMI:??41.42?? Constitutional:??Normal affect, appears comfortable,??no acute distress. Respirations:??Normal exam, equal chest rise, unlabored breathing.? Breath sounds are:??Clear to auscultation, equal bilaterally,??without rales, crackles, wheezing,??or rhonchi.? Cardiovascular:??Regular rate and rhythm, no murmurs.? Abdomen/GI:??Soft, mild tenderness in lower midline??pelvis, otherwise??non- tender, and non-distended, no guarding, no rebound tenderness.?? Gynecologic:?External Genitalia: normal exam, without lesions, without atrophic changes ??Vagina: normal support, no lesions, no discharge, small blood noted in vault ??Cervix: no CMT, no lesions, no cervical discharge, small clot of blood noted at external os, no visualization of IUD strings ??Uterus: Non-tender, anteverted. ??Ovaries: Non-tender, no adnexal masses appreciated bilaterally. Extremities:??No clubbing, cyanosis or edema present.?? Skin:??No rash or jaundice. Normal for ethnicity. Neurological/Psychiatric:??Appearance appropriate, mood and affect stable. Assessment/Plan Assessment:??Alicia is a that presented to the emergency department??with lower abdominal??pain and vaginal bleeding.??On CT and ultrasound imaging, her Mirena??IUD was found to be in an abnormal position.??The covering ED provider attempted IUD removal??without success.??Gynecology was??consulted??for recommendations and further management.??Her vitals are within normal limits.??CBC, CMP, UA unremarkable.??On CT imaging, her IUD is??located in the lower uterine segment in an oblique??position??and does not??appear to be??traversing the??myometrium.??Upon chart review,??IUD appeared to be appropriately positioned??on previous MRI scan in May 2022.?Discussed that acute onset of lower??abdominal pain??could potentially be in the setting??of??IUD migration.??Patient desires??her IUD to be removed at this time.??Counseled regarding??IUD removal??and expectations. Discussed??option s??including??attempted IUD removal at bedside??and??IUD removal??in the operating room under anesthesia.?Patient desires??bedside attempt at IUD removal.?She was counseled on the risks of IUD removal including increased bleeding??and??inability to remove.??Informed consent provided??and surgi stacey??consent??signed. ?? Procedure: IUD Removal [place] speculum placed in vagina,??small clot??covering external os. Strings not visualized.?Small clot??removed??with ring forceps. Long Padmini clamps??used??to??grasp??strings??within cervical canal. Both strings visualized with gentle traction. Continued traction??applied??with subsequent IUD removal. IUD??appears fully intact, patient declines??to look at IUD and it was??discarded. Subsequent??bleeding??noted??from??cervix and pooling in vaginal vault. After clearance??of blood from??vault,??no active bleeding visualized from cervix. Speculum removed. Patient tolerated procedure well??and reports improvement of pain to 4/10. ? Patient believes she would like another IUD to replace this one. Discussed??follow-up??in??our clinic versus??primary client reporting associate??for??reinsertion??of IUD.?Reports that she is already in contactwith Dr. Crabtree's office??and plans to follow-up??with him.?Discussed that she can call our office if she is unable to??get an appointment. ? IUD malpositioned on imaging 10/12/23 (T83.32XA):?? Encounter for IUD removal (Z30.432):? -Desires IUD removal??in the setting of??acute onset lower abdominal pain??and??malpositioning of IUD seen on CT imaging -Mirena IUD??removed at bedside??without complication -No active bleeding??visualized??at end of procedure -Discussed outpatient follow-up for??IUD reinsertion,??plans??to??schedule appointment with primarygynecologist Dr. Crabtree ? Thank you for allowing me to participate in the care of this patient. ??Please do not hesitate to contact the Gynecology team with any questions or concerns, pager #[phone] ? Patient seen and IUD removed with Dr. Pineda, attending physician. OB History History?(3,0,1,3)? # 1 ?Baby 1 ?Outcome Date:??1992 ?Outcome or Result:??Vaginal ?Gest Age:??Fullterm ? Outcome:??Live ? Sex:??Female?Wt:?3827 g ?Child's Name:??Almita ?? # 2 ?Baby 1 ?Outcome Date:??1998 ?Outcome or Result:??Spontaneous with D&C ?Gest Age:??-- ? Outcome:? Sex:??-- ?? # 3 ?Baby 1 ?Outcome Date:??2001 ?Outcome or Result:?Gest Age:??Fullterm ? Outcome:??Live ? Sex:??Female?Wt:?3374 g ?Child's Name:??Jewell ?Comment:??Breech presentation ?? # 4 ?Baby 1 ?Outcome Date:??2002 ?Outcome or Result:?Gest Age:??Fullterm ? Outcome:??Live ? Sex:??Female?Wt:?3345 g ?Child's Name:??Husam ?Comment:??Elective repeat Problem List/Past Medical History Ongoing Adenomyosis suspected based on imaging Herniation of lumbar intervertebral disc with radiculopathy History of papillary thyroid carcinoma s/p thyroidectomy 2006 (total 4.5 cm) and I131 ablation (159mCi) History of renal calculi Hypercholesterolemia Hypertension Impaired fasting glucose Last Pap smear outside of [facility] system 03/2022: per report was negative with negative HPV. Deniesprior abnormal Paps Memory deficit Migraine Mirena IUD in place. IUD malpositioned on imaging 10/12/23 Severe obesity Vertigo Procedure/Surgical History Robotic-assisted laparoscopic left oophorectomy and bilateral salpingectomy: 02/08/23 Right ankle arthroscopy with microfracture of medial talar osteochondral defect, right minimally invasive medializing calcaneal osteotomy, right gastrocnemius recession, right posterior tibial tendonrepair and tenosynovectomy, right deltoid ligament frederick: 11/12/19 Deep hardware removal, right ankle.: 05/24/18 Open reduction and internal fixation of trimalleolar fracture, right ankle without fixation of the posterior malleolus: 04/14/17 Closed reduction of right ankle fracture dislocation: 04/13/17 Posterior facetectomy, decompression, discectomy at L5-S1 left, transforaminal interbody fusion L5-S1: 03/07/17 Suprapubic sling operation: 04/05/13 Left and right selective neck dissections: 09/08/07 Right thyroid lobectomy (completion total), excision of right cervical lymph nodes: 01/31/06 Left thyroid lobectomy: 12/17/05 section and bilateral tubal ligation: 2002 section: 2001 Cholecystectomy Arthrodesis, combined posterior or posterolateral technique with posterior interbody technique including laminectomy and/or discectomy sufficient to prepare interspace (other than for decompression),single interspace and segment; lumbar Home Medications Acetaminophen: 1,000 mg = 2 tablet, By Mouth, 3 times a day, PRN (as needed for pain) Acetaminophen / Hydrocodone: 1 tablet, By Mouth, Every 6 hours, PRN (as needed for pain) Albuterol: 2 puffs, 3 times a day, PRN (as needed for wheezing) Amlodipine: 5 mg, By Mouth, Daily in AM Cholecalciferol: 5,000 International_Units = 1 tablet, By Mouth, Daily Eletriptan: 20 mg = 1 tablet, By Mouth Ibuprofen: 800 mg = 1 tablet, By Mouth, Every 8 hours Levonorgestrel: 52 mg = 1 each, Intrauterine, Once, Lot #[id number] exp 11/09 Levothyroxine: 275 mcg, By Mouth, Daily in AM Lisinopril: 30 mg, By Mouth, Daily in AM Lisinopril: 40 mg = 1 tablet, By Mouth, Daily Meclizine: 25 mg = 1 tablet, By Mouth, Daily, PRN (Other), 90 each, 0 Refill(s), TAKE 1 TABLET BY MOUTH 3 TIMES A DAY NEEDED FOR DIZZINESS/VERTIGO Polyethylene Glycol 3350: 17 Gm, By Mouth, Daily, dissolve in water before taking Senna: 30 mg = 2 tablet, Chew, 2 times a day, PRN (for constipation) Sumatriptan: 100 mg, By Mouth, Once, PRN (Other), for migraine headaches. Tramadol: 50 mg = 1 tablet, By Mouth, Every 4 hours, PRN (as needed for pain) Allergies oxycodone??(body shakes) Social History Alcohol Use: Never. Electronic Cigarette/Vaping Electronic Cigarette Use: Never. Employment/School Status: Employed. 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 Exercise Self assessment: Good condition. Exercise type: Walking. Home/Environment Living situation: Home/Independent. Nutrition/Health Diet: Regular. Sexual Sexually involved in last 6 months: Yes. Substance Abuse Use: Never. Tobacco Use: Never (less than 100 in lifetime). Family History Father (Isac, ): CAD - Coronary artery disease; Liver failure Sister: Breast cancer Patient Instructions You are seen in the emergency department for abdominal pain,??although there is nothing that needs to be done acutely in the emergency department as far as surgery there are several things that need??close follow-up, ??the iud was removed by our gynecologists,??second if the sensation of??your bladder prolapsing you are going to need to follow-up with your urologist.?? And third, please follow-upwith??your??PCP as you will need to get additional??imaging??and possible lab work for the incidental??adrenal??enlargement noted on the CAT scan,??I will send the CAT scan to your PCP however??I am also giving a copy of a??to you to ensure that??you get appropriate follow-up.?? Please return to the emergency department if you get high fevers or chills??or unable to keep any fluid down. or severebleeding.?? I am going to discharge you with 7 of oxycodone for your pain. ??Please take regular Tibuprofen??tqor-mgt-lowoxdy as directed??first them and??only??using??the hydrocodone with tyelnol using the ??only for more severe pain.- if it makes you feel nasueased discontinue it Patient Care team information Care Team Personnel Name: Mandy Keller RN Position: S RN Member Role: Primary Care Nurse Name: Natalya Urbina RN Position: S RN Member Role: Primary Care Nurse Name: Luz Bae RN Position: [facility] AMB Nurse Member Role: Primary Care Nurse Name: Tamela Pelaez MD Position: Reference Physician Member Role: PCP Address: Address: [address] [place] [id number]- Name: Nell Montague RN Position: [facility] RN Member Role: Primary Care Nurse Name: Mildred Elaine RN, I Position: [facility] RN Member Role: Primary Care Nurse Care Team Related Persons Name: JULIA NICHOLS Address: home [address] [place] [address] Name: NIKA REYES Address: home [address] [place] [address] Name: JEWELL KING Address: home [address] [place] [address]
--- OUTSIDE RECORDS SUMMARY | 2023-12-07 07:04 | XMS_ITS | Continuity of Care Document ---
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 [id number] Medications acetaminophen 650 mg oral tablet, extended release 1 tablet = 650 mg, By Mouth, Every 8 hours, for 10 days, # 30 tablet, 0 Refills, Acute 02/18/23 10:30:00 EST, 02/08/23 10:30:00 EST, ER Tablet, [facility]/pharmacy #[id number], Partial fill upon patient request [...] 02/08/23 10:30:00 EST, Route to Pharmacy Electronically, [facility]/pharmacy #[id number], Partial fill upon patientrequest if [...] each = 52 mg, Intrauterine, Once, Lot #[id number] exp 11/09, # 1 each, 1 Refills, [...] 0 Refills, Maintenance, 02/08/23 10:31:00 EST, Tablet, [facility]/pharmacy #1972, Partial fill upon patient request [...] Confirmed Active 1Sees Dr. Mary Wallace of [facility] 2Dx 11/2005. s/p thyroidectomy 2006 (total 4.5 cm) and I131 ablation (159 mCi). Vital Signs Most recent to oldest [Reference Range]: 1 2 3 Height 154.94 cm (02/08/23 6:55 AM) 154.94 cm (02/04/23 6:57 PM) Weight 107.27 kg (02/08/23 6:55 AM) 107.27 kg (02/04/23 6:57 PM) Oxygen Saturation [94-100 %] 95 % (02/08/23 3:15 PM) 95 % (02/08/23 3:00 PM) 95 % (02/08/23 2:45 PM) Pulse Rate [55-90 bpm] 82 bpm (02/08/23 6:55 AM) Body Mass Index [18.5-24.99 kg/m2] 44.68 kg/m2 *>HHI* (02/08/23 6:55 AM) 44.68 kg/m2 *>HHI* (02/04/23 6:57 PM) Blood Pressure [90-138/55-84 mm Hg] 112/74mm Hg (02/08/23 3:15 PM) 112/74mm Hg (02/08/23 3:00 PM) 106/56mm Hg (02/08/23 2:45 PM) Respiratory Rate [16-30 br/min] 16 br/min (02/08/23 3:15 PM) 17 br/min (02/08/23 3:00 PM) 17 br/min (02/08/23 2:45 PM) Temperature [96.8-100.4 DegF] 98.3 DegF (02/08/23 1:00 PM) 97.1 DegF (02/08/23 11:45 AM) 97.1 DegF (02/08/23 10:45 AM) Liters per Minute 2 L/min (02/08/23 12:45 PM) 2 L/min (02/08/23 11:30 AM) 4 L/min (02/08/23 11:15 AM) Mode of Delivery (Oxygen) Room air (02/08/23 3:15 PM) Room air (02/08/23 2:15 PM) Room air (02/08/23 1:00 PM) Blood pressure sites Arm, right (02/08/23 10:45 AM) Arm, right (02/08/23 6:55 AM) Temperature Route Temporal (02/08/23 1:00 PM) Temporal (02/08/23 11:45 AM) Temporal (02/08/23 10:45 AM) Dry Weight 107.27 kg (02/04/23 6:57 PM) Weight Obtained Via Patient/family state d (02/04/23 6:57 PM) Dry Weight Obtained Via Patient/family s tated (02/04/23 6:57 PM) Social History Social History Type Response Tobacco Use: pt denies. Sex Note * Carlos Matthews: PERFORM Event Display: Discharge/Transfer Note Hospital Authored Date: [id number] Nursing Discharge Note Entered On: 02/08/2023 16:21 EST Performed On: 02/08/2023 16:21 EST by Carlos Matthews Nursing Discharge Note 2 Discharge Time : 02/08/2023 15:56 EST Discharge Level of Care at Discharge : Home/Senior Care/Foster Care Patient Left Unit Via : Wheelchair Patient Accompanied Off Unit with : Parent DC Instructions Provided & Signed by Pt : Yes Patient Understands D/C Instructions : Yes Patient Instructions Discharge Signed : Yes Did Pt have Specialty Bed or Wound Vac : No Carlos Matthews - 02/08/2023 16:21 EST * Renetta Yates RN: PERFORM, MODIFY, MODIFY Carlos Matthews: MODIFY Event Display: Patient Education/Instruction Authored Date: [id number] Inpatient Adult Discharge Instructions [address] [address] Name: MARY REYES : 1975 Visit: 02/08/2023 05:23:00 Current Date: 02/08/2023 11:20 Account: [id number] Inpatient Adult Discharge Instructions We would like [...] and their families. Surveys are administered by [employer] ?? If further treatment with your primary care physician or another doctor is recommended, it is important for you to keep the appointment. Call your primary care physician or return to the Emergency Department immediately if your condition worsens, fails to improve, or new symptoms develop. If you need to find a doctor, you can call [facility] Link for a referral at [phone] or toll free at [phone] ([phone]) or log in to [email or web address].. ?? [facility], in keeping with [facility] guidance, no longer requires face masks for [...] a health care frances of your choosing. [employer] is a website that allows you to securely view your medical information including your hospital discharge summary, office visit summaries, medications and follow-up visits. You can also request appointments, renew medications, and request access to your medical information using a health care frances of your choosing, or just ask a question. You can enroll at [email or web address] or register during your next office visit. You have been discharged from [facility], Patient Care Unit: PANU. If you have any questions regarding these instructions after you leave, please call us and we will be happy to assist you. [facility] Your Care Team Attending Physician Farida Hood MD Consulting Providers Nika Swartz DO; Farida Hood MD Discharging Providers Mathieu Rosario DO Reason for Admission PELVIC MASS PAIN ROBOT SALPINGECT 23HR OVN Tests Performed Below is a partial list of the tests performed during your hospitalization. You may have had other tests and procedures not included in this list. Please discuss all test results with your provider. Primary Care Provider Tamela Pelaez MD Advance Directive Health Care Proxy on File No Discharge Vitals Temperature: 97.1 DegF Height: 154.94 cm Pulse Rate: 82 bpm Weight: 107.27 kg Respiratory Rate: 17 br/min Body Mass Index:??44.68 kg/m2??Critical Systolic Blood Pressure: 129 mm Hg Body surface area: 2.15 Diastolic Blood Pressure: 81 mm Hg ?? Oxygen Saturation: 95 % ?? Studies Pending All tests and labs ordered during this hospital stay have been completed unless listed below. Please discuss all pending results with your provider listed above in these instructions. ?? CBC HCG Urine (Urine Test) Pathology Tissue Request () What to do next Instructions From Your Doctor Discharge Orders Scheduled Follow-Up Appointments Tuesday 11:00 AM EST ?? With: Anthony WOODS, Angelica Finnegan Where: [facility] [address] [place] [address] [place] [address]- Status: Pending Discharge Medications MARY REYES :1975 Visit Date:02/08/2023 Medications: Please continue your medications until treatment is completed or stopped by your provider. Medications not listed below should be discontinued. Discuss any questions related to medications with your provider. What How Much When Instructions Next Dose New Ibuprofen (ibuprofen 800 mg oral tablet) 1 tab(s) Oral Every 8 hours Pickup at [facility]/[place] [address] 02/08 2:30pm New Polyethylene Glycol 3350 (MiraLax oral powder for reconstitution) 17 gram Oral Daily dissolve in water before taking ?? Pickup at [facility]/pharmacy [facility] 02/08 New Senna (senna 15 mg oral tablet, chewable) 2 tab(s) Chew Twice a day as needed for for constipation Pickup at [place] [address] 02/08 PM New Tramadol (traMADol 50 mg oral tablet) 1 tab(s) Oral Every 4 hours as needed for as needed for pain Pickup at [place] [address] 02/08 when needed Changed Acetaminophen (acetaminophen 650 mg oral tablet, extended release) 1 tab(s) Oral Every 8 hours Duration: 10 Days Pickup at [place] [address] 02/08 7:30pm Changed Acetaminophen (Tylenol Extra Strength 500 mg oral tablet) 2 tab(s) Oral 3 times a day as needed for as needed for pain 02/08 7:30pm Changed Amlodipine 5 Milligram Oral Daily in the morning 02/09 Unchanged Albuterol (albuterol 90 mcg/ inh inhalation aerosol) 2 puff(s) 3 times a day as needed for as needed for wheezing resume home regimen Unchanged Cholecalciferol (Vitamin D3 5000 intl units oral tablet) 1 tab(s) Oral Daily resume home regimen Unchanged Levonorgestrel (Mirena 52 mg intrauteral device) 1 Each Intrauterine Once Lot #[id number] exp ?? resume home regimen Unchanged Levothyroxine (Tirosint 100 mcg (0.1 mg) oral capsule) 275 Microgram Oral Daily in the morning resume home regimen Unchanged Lisinopril (lisinopril 10 mg oral tablet) 30 Milligram Oral Daily in the morning resume home regimen Unchanged Meclizine (meclizine 25 mg oral tablet) 1 tab(s) Oral Daily as needed for Other 90 each, 0 Refill(s), TAKE 1 TABLET BY MOUTH 3 TIMES A DAY NEEDED FOR DIZZINESS/ VERTIGO ?? resume home regimen Unchanged Sumatriptan 100 Milligram Oral Once as needed for Other for migraine headaches. ?? resume home regimen Pharmacy Information [facility]/pharmacy #1972: [address], [place] [id number] [phone] Test Results Below is a partial list of the most recent Laboratory test results done prior to this discharge. You may have had other tests and procedures not included in this list. Please discuss all test resultswith your provider. Allergies (NKA means No Known Allergies) oxycodone??(body shakes) Problems Active Problems??(8) Asthma?? Herniation of lumbar intervertebral disc with radiculopathy?? Hypertension?? Hypothyroid?? Obesity?? Papillary thyroid carcinoma?? Pelvic mass?? Severe obesity?? Education Materials Below is the list of Educational Leaflet Providered with your Discharge Instructions. Valuables and Belongings I fully understand and agree that [facility] accepts no responsibility for all my [...] encouraged to send valuables and belongings home. ?? Review of Valuable and Belonging List: With patient Date for Pt to Sign Valuables/Belongings: 02/08/23 06:58:00 ?? Valuables & Belongings ?? Clothes Electronic devices Jewelry Monetary Items Personal devices Miscellaneous Medications (Valuables) Valuables at Bedside Jacket, Pants, Shirt, Shoes, Undergarments Cell phone ? Dentures, lower, Dentures, upper ? Valuables Sent Home ? Valuables Sent to Security ? Other Discharge Information ? Pulmonary Rehab Status?? Pulmonary Rehab Discharge Status?? Respiratory Rate: 17 br/min ? Common Emergency Awareness Tips IS [...] are strongly encouraged to quit. Please call [employer] Link at [phone] or [phone] ([phone]) or log in to [email or web address] for referrals to smoking cessation programs. ?? 143 Suicide & Crisis Lifeline is available 18/10 if you or someone you know needs to find a reason to keep living. By calling 523 you'll be connected to a skilled, trained counselor at a crisis center in your area. INPATIENT DISCHARGE INSTRUCTIONS SIGNATURE PAGE MARY REYES Location:[facility] Registration Date and Time:02/08/2023 05:23 EST Primary Care Physician: Tamela Pelaez MD, Attending Physician: Farida Hood MD, I MARY REYES, have received the above patient education materials/instructions and have verbalized understanding. If ambulance or transport services are being used I further acknowledge being given a choice of service. ?? If you need to contact me, please call me at this number: . Patient/Pipeline Executive Name: Patient/Pipeline Executive Signature: Relationship to Patient: Witness Name/Signature: Date: * Renetta Yates RN: PERFORM, SIGN, VERIFY Event Display: Patient Education Handout Authored Date: [id number] * Renetta Yates RN: PERFORM Event Display: Patient Education Leaflets Authored Date: [id number] Surgery Medical Daystay Surgical Overnight Discharge Instructions ?? 295 Medical Daystay/Surgical Overnight Discharge Instructions ? Since your coordination and judgment may be altered by medication and/or anesthesia, a responsible adult must drive you home from the hospital. ? If you have received medication for pain or sedation while under our care, you should not drive, operate machinery, drink alcohol, or sign any legal documents for 24 hours.?? You should have someone with you at home tonight. ? Remain at home the day of discharge.?? You may be up and about unless otherwise instructed by your physician. ? You may resume your daily prescription medication schedule.?? Any depressant medication should be avoided for 24 hours unless otherwise instructed by your surgeon or anesthesiologist. ? Call your physician for a follow-up appointment.? If you experience unusual or severe pain not relied by your pain medication, excessive bleedingor drainage, persistent nausea and vomiting, excessive swelling or redness, foul odor from incisionsite or fever over 100.6F, you need to call your physician. ? A follow-up phone call by a nurse will be made the day after your procedure.?? If you have stayed with us over night, you will not be receiving a follow-up phone call. ? Nausea and vomiting are a common side effect of prescription pain medication.?? We recommend that pills are not taken on an empty stomach.?? While taking any prescription pain medication you should not drive or drink alcohol. ? Patient Care team information Care Team Personnel Name: Mandy Keller RN Position: S RN Member Role: Primary Care Nurse Name: Natalya Urbina RN Position: S RN Member Role: Primary Care Nurse Name: Luz Bae RN Position: [facility] SN RN Member Role: Primary Care Nurse Name: Tamela Pelaez MD Position: Reference Physician Member Role: PCP Address: Address: [address] [place] [address]- Name: Nell Montague RN Position: S RN Member Role: Primary Care Nurse Name: Mildred Elaine RN, I Position: S RN Member Role: Primary Care Nurse Care Team Related Persons Name: JULIA NICHOLS Address: home [address] [place] [address] Name: NIKA REYES Address: [address] [place] [address] Name: MADISON MAZARIEGOS Address: [place] [address]
--- NOTE | 2023-12-07 08:20 | P.BOP_ITS ---
Brief Operative Note Date of Service: 12/07/23 Pre-op diagnosis: Morbid obesity with comorbidities (see below) Post-op diagnosis: same (& abdominal adhesions) Procedure: INITIAL PATIENT BMI ON PRESENTATION AT OUR OFFICE: 42.4 kg/m2 LAST BMI BEFORE SURGERY: 40.5 kg/m2 COMORBIDITIES: Asthma, hypothyroidism, GERD, hypertension, DJD, vertigo, migraines, liver steatosis ?The patient presented to the Weight Management Program with significant obesity that was negatively impacting the patient's comorbidities as listed above.? The program is a phased program with a special focus on preoperative medical weight management to promote substantial weight loss and prepare the patients for the second phase of the program: bariatric surgery. The patient participated in an intensive weekly lifestyle ?intervention and exercise program during which the patient ?has lost between the initial office visit and the last preoperative visit 10.6 lbs, or 4.7% of initial actual body weight. It was deemed appropriate for the patient to now have bariatric surgery. In light of the current Covid-19 pandemic and the well documented strong association of obesity and increased risk of worse outcomes if infected with Covid-19 (REFERENCES: https: //pubmed.ncbi.nlm.nih.gov/09602802/ ,? https://pubmed.ncbi.nlm.nih.gov/55355056/ ), any delay in undergoing bariatric surgery may lead to the patient's worsening health condition and increased?risk of more severe Covid-19 disease if infected. In addition a recent?study from [facility] published in [facility] [employer] on 03/23/2021 ([email or web address]:/[email or web address] [email or web address]) found that, among patients with obesity, substantial weight loss achieved with surgery was associated with improved outcomes of COVID-19 infection. The findings suggest that obesity can be a modifiable risk factor for the severity of COVID-19 infection. In addition, the patient met the BMI-criteria for bariatric surgery based on the BMI on initial presentation. The patient should not be penalized for achieving such weight loss because ?it is not sustainable long-term without surgical intervention and it was achieved in preparation for bariatric surgery ?under my direction and based on my published research ([email or web address]).pdf and? https://www.soard.org/article/W8685-4654(75)70630-X/pdf ) ?that a 10% preoperative weight loss improves long-term weight loss after surgery and reduces perioperative complications.? Insurance carriers such as [facility] have endorsed my recommendations ?and have included in their policies criteria to include a 10% preoperative weight loss requirement. PROCEDURE: Esophago-gastroscopy, laparoscopic lysis of adhesions, laparoscopic sleeve gastrectomy and laparoscopic gastropexy INDICATIONS: This is a 48 year-old female who was electively scheduled for laparoscopic, possibly open sleeve gastrectomy. The risks and complications of the procedure were discussed with the patient in advance, particularly the possibility of ; pulmonary embolism; staple line leak; bleeding; GERD; cardiac, pulmonary, or renal complications; as well as long-term problems such as insufficient weight loss, vitamin deficiency, strictures, or ulcers. The patient understood all the risks, and was in agreement to proceed with surgery. DESCRIPTION OF PROCEDURE: After informed consent was obtained from the patient, the patient was given preoperative antibiotics, and was transferred to the operating room. After successful induction of general anesthesia, pneumatic compression devices were placed on both lower extremities. An upper endoscopy was performed next. The oropharynx and esophagus appeared to be within normal limits. There was no diaphragmatic hernia present. The stomach was entered. Then after all fluid and air were suctioned and the stomach was fully decompressed, the scope was withdrawn and secured in the mid esophagus. The patient was then prepped and draped in the usual sterile manner, and abdominal access was established at the right upper quadrant with the Martha technique. A 12 mm blunt port was inserted, and the abdomen was insufflated with CO2 to a pressure of 15 mmHg. Under direct visualization, additional ports were placed, specifically two 5 mm Versi-step ports to the left upper quadrant, and a 5 mm Versi-Step port to the right upper quadrant. 1% lidocaine plain was used to infiltrate all port sites as well as all fascia defects. Following that, the patient was placed in a steep reverse Trendelenburg position. An additional 5 mm port was placed to the right flank for the Mediflex retractor that was used to retract the left lobe of the liver. The gastro-esophageal fat pad was opened with the ultrasonic device (Thunderbeat, Olympus) and the anterior esophagus and hiatus were exposed. The angle of His was opened with the ultrasonic device the fundus of the stomach from any diaphragmatic and splenic attachments. I then opened the gastrocolic ligament between the transverse colon and the greater curvature of the stomach with the ultrasonic device to enter the lesser sac and facilitate the ligation of the short gastric vessels. I started at a mid-point along the greater curvature and using the Thunderbeat, all short gastric vessels were divided all the way to the angle of His until the left gurvinder was completely dissected at its entirety. I then divided the gastro-colic ligament distally to a distance of about 3-4 cm proximal to the pylorus. There were extensive congenital adhesions between the pancreas and posterior gastric wall. Those were lysed completely with the ultrasonic device. Adhesiolysis took approximately 45 min to complete. The stomach was then divided transversely with one Endo ROSSY-45 purple, one Endo ROSSY-60 purple, one ROSSY-45 orange load and three ROSSY-60 articulating orange loads using the SIGNIA and AEON stapler and loads. Every effort was made that the gastric sleeve had a tubular shape and an even caliber throughout. Once the sleeve resection was completed, the staple line of the gastric sleeve was reinforced with Hemoclips. The resected stomach was retrieved without difficulty from the Martha port. A gastropexy was then performed in order to prevent postoperative GERD and partial gastric volvulus. Several interrupted 2.0 Surgidac sutures were placed b etween the sleeve's staple line and the previously divided greater omentum and gastro-colic ligament using the Endo-Stitch device. ?An upper endoscopy was performed. There was no narrowing at the GE junction. The scope was easily advanced all the way to the pylorus which was clearly visualized. There was no narrowing anywhere and the sleeve's caliber was even throughout. The sleeve's staple line was inspected and there was no evidence of ischemia, bleeding or dehiscence. At that point the gastroscope was withdrawn from the patient?s mouth while we were decompressing the bowel and the stomach from any remaining air. I looked into the lesser sac to see how the sleeve was situating and it was situating well. There was no bleeding from the staple line, spleen, or short gastric vessels. The Mediflex retractor was removed, and the undersurface of the liver was inspected and there was no bleeding. The patient was placed in supine position. I closed the fascial defect of the 12 mm port site with a figure of eight #1 Polysorb suture. Then 30cc Ropivacaine plain with 10 mg of Dexamethasone were used to infiltrate the fascial closure as well as all skin incisions. At this point, the abdomen was deflated, all ports were removed under direct vision, and no bleeding was noted from any of the port sites. The skin incisions were irrigated with saline and were closed with 4-0 absorbable monofilament sutures. Steri-Strips and OpSites were used to cover all incisions. The patient was extubated and was transferred in stable condition to the recovery room for further care. I was present and performed all rehman parts of the procedure. Mr. Benedict was the oceanographer assistant. There were no residents to assist with this case. Daniel Malagon MD, PhD, FACS Surgeon: Wan Malagon MD Anesthesia: GETA, local and other (TAP block) Was an Software Development Engineer used for this Procedure?: No Estimated blood loss (mL): 10 IV fluids (mL): 3,000 Urine output (mL): 0 (No Segura to record output) Pathology: other (Stomach) Condition: stable Disposition: PACU
[2023-12-07] MEDS: Lactated Ringers 1,000 ML 999 ML IV (08:25)
[2023-12-07] MEDS: Lactated Ringers 1,000 ML 100 ML IVCONT ×2 (08:25→14:18)
[2023-12-07] MEDS: Aprepitant 32 MG/4.4 ML VIAL IVPUSH (08:26)
--- NOTE | 2023-12-07 08:27 | P.PNGS_ITS ---
Subjective Subjective Date of Service: 12/08/23 Interval history: Feels well. Mild incisional pain. She is tolerating phase 1 bariatric diet Physical Exam 2 Vital Signs: Vital Signs: Last Vital Signs Temp 97.4 F 12/07/23 07:48 Pulse 90 12/07/23 07:48 Resp 16 12/07/23 07:48 BP 134/79 12/07/23 07:48 Pulse Ox 100 12/07/23 07:48 O2 Del Method Room Air 12/07/23 07:48 BMI result Body Mass Index 39.9 GI: Inspection: Yes normal to inspection, Yes incision (clean, dry and intact) and Yes obesity Palpation (GI): Soft to palpation Extrem: Right lower extremity: normal to inspection (no calf tenderness) L eft lower extremity: normal to inspection (no calf tenderness) Objective Data Active Medications Albuterol Sulfate (Albuterol Sulfate (0.083%) 2.5 Mg/3 Ml Vial.Neb) 2.5 mg INHALE ONCE PRN PRN Reason: Shortness of Breath/Wheezing Lactated Ringer's (Lr) 1,000 mls @ 100 mls/hr IVCONT .Q10H [facility] Last Admin: 12/07/23 08:25 Dose: 100 mls/hr Documented By: LINA Lactated Ringer's (Lr) 1,000 mls @ 999 mls/hr IV .Q1H1M [facility] Stop: 12/07/23 09:00 Last Admin: 12/07/23 08:25 Dose: 999 mls/hr Documented By: LINA Labs 12/08/23 05:32 12/08/23 05:32 Procedures Date of Service Date of Service: 12/08/23 Progress Note: A&P Assessment and plan (1) Morbid obesity: Status: Acute Assessment and Plan: s/p laparoscopic sleeve gastrectomy, lysis of adhesions and gastropexy Doing well Will check am labs and if OK the patient will be discharged home (2) Asthma: Status: Acute (3) Benign essential hypertension: Status: Acute (4) Hypercholesterolemia: Status: Acute (5) Migraine: Status: Acute (6) Osteoarthritis of left knee: Status: Acute (7) GERD (gastroesophageal reflux disease): Status: Acute (8) Hypothyroid: Status: Acute (9) Vertigo: Status: Acute (10) Fatty liver: Status: Acute (11) S/P laparoscopic sleeve gastrectomy: Status: Acute (12) Congenital intra-abdominal adhesions: Status: Acute Time Spent With Patient Time: Total time managing care of this patient today ____ minutes. Quality Stroke Does the patient have a stroke diagnosis?: No VTE Prior VTE?: No VTE Risk Level:: Surgical - moderate VTE Device Contraindication: N/A - Device Ordered VTE Drug Contraindication: Treatment Not Indicated
--- NOTE | 2023-12-07 09:07 | MHC.SHP ---
Pre-Procedural Eval Section A - 24 Hr Update-Section A only Date of Service: 12/07/23 The patient is an INPATIENT: Yes The patient has been examined within 24 hours of the surgical procedure. The History & Physical has been completed within 30 days and I have reviewed it.: Yes Section B - Complete if H&P > 30 days Chief Complaint: Morbid obesity Relevant Family History (Specify if Yes): No Relevant Social History: None Present Medications: None Medical History: No relevant PMH History of Previous Operations: No relevant previous surgery Allergies: Allergies Allergy/AdvReac Type Severity Reaction Status Date / Time oxycodone [OXYCODONE] Allergy Intermediate RASH,SHAKES, Verified 12/07/23 07:02 shakiness, body shaking, tremors Review of Systems Sugical H&P ROS: Negative: Constitution, Cardiovascular, Respiratory, Neurological, Psychiatric, Hem-Onc, Allergic/Immunologic, Gastrointestinal, Genitourinary, Musculoskeletal, Integumentary, Endocrine and Eyes/Ears/Nose/Throat Exam Surgical H&P Exam: Normal: HEENT, Normal: Heart, Normal: Lungs, Normal: Extremities, Normal: Abdomen, Normal: Skin and Normal: Neurological Plan Diagnosis/Plan: Unchanged I have reviewed the history and physical and performed a pertinent physical examination on my patient. No changes have occurred unless specified. Time Spent With Patient Time: Total time managing care of this patient today ____ minutes.
[2023-12-07] MEDS: ceFAZolin Sodium/Dextrose,Iso 2 GM/50 ML PIGGYBACK IV ×2 (09:26→15:02)
[2023-12-07] MEDS: Acetaminophen 1,000 MG/100 ML PIGGYBACK 400 MG IV (10:00)
--- NOTE | 2023-12-07 12:21 | PM.DS ---
DS: Providers Provider Date of Service: 12/08/23 Date of admission: 12/07/23 06:57 Primary care physician: Tamela Pelaez MD DS: Diagnosis Discharge Diagnosis (1) Morbid obesity: Status: Acute (2) Asthma: Status: Acute (3) Benign essential hypertension: Status: Acute (4) Hypercholesterolemia: Status: Acute (5) Migraine: Status: Acute (6) Osteoarthritis of left knee: Status: Acute (7) GERD (gastroesophageal reflux disease): Status: Acute (8) Hypothyroid: Status: Acute (9) Vertigo: Status: Acute (10) Fatty liver: Status: Acute DS: Summary Hospital Course Hospital Course: ADMITTING DIAGNOSIS: morbid obesity, uterine myomy, hld, htn, thyroid ca, right adrenal adenoma ? DISCHARGE DIAGNOSIS: same, s/p laparoscopic sleeve gastrectomy ? PAST SURGICAL HISTORY: cholecystectomy, Left oophorectomy, cesarian section, thyroidectomy, tubal ligation, ankle surgery ? PROCEDURE: upper endoscopy, laparoscopic sleeve gastrectomy ? DISCHARGE SUMMARY: ? History of Present Illness: ? The patient is a?48 year-old woman with a BMI of?42.4 kg/m2 and associated co-morbidities as described above. The patient had extensive work-up,lost?13.9 lbs preoperatively and was electively scheduled for laparoscopic, possible open sleeve gastrectomy and gastropexy. Risks and complications of the surgery were discussed with the patient in advance, particularly the possibility of , pulmonary embolism, anastomotic leak, bleeding, bowel injury, GERD, cardiac, renal or pulmonary complications. The patient understood all the risks and was in agreement with the surgical plan. ? Hospital Course: ? The patient underwent an uneventful laparoscopic sleeve gastrectomy with gastropexy on the day of admission. Postoperatively, the patient was transferred to the surgical floor. The patient received IV Acetaminophen and IV dilaudid for pain control. Patient was started on bariatric phase 1 diet POD #0. On postoperative day one, the patient was feeling well without nausea, vomiting, fevers, or tachycardia. The patient had some mild incisional pain and the abdomen was soft. ? On the morning of postoperative day one, the patient was continued on 1 ounce of water or ice every half hour. During the day, the patient did fairly well, having some incisional pain, but able to ambulate adequately and to tolerate liquids well. ? Since the patient is doing well, we decided that the patient was ready to be discharged. The patient was given instructions to follow-up with me next week and to call my office for any fever over 101, persistent abdominal pain, nausea, vomiting, GERD, symptoms of DVT such as calf tenderness, or leg swelling, or pulmonary embolism such as chest pain or shortness of breath. The patient was also instructed to drink 40-60 ounces of liquids per day using the 1-ounce cups. The patient had been given prescriptions for Tylenol for pain, Zofran prn for nausea, and pantoprazole and carafate previously. The patient was encouraged to ambulate and use the incentive spirometer. The patient was allowed to shower, but no baths, and encouraged to stay active at home. All of these instructions were given to the patient personally. All questions were answered and the patient understood all instructions, the instructions were also given to the patient in print. Time Attestation Total time managing care of this patient today: 25 mintues. Discharge Coordination Time (in mins): 25 Quality: Safe Use of Opioids Does Pt have an Active Cancer Diagnosis on the Problem List?: No Quality: Stroke Does the patient have a stroke diagnosis?: No Physical Exam Vital Signs: Vital Signs: Last Vital Signs Temp 97.4 F 12/07/23 07:48 Pulse 90 12/07/23 07:48 Resp 16 12/07/23 07:48 BP 134/79 12/07/23 07:48 Pulse Ox 100 12/07/23 07:48 O2 Del Method Room Air 12/07/23 07:48 BMI result Body Mass Index 39.9 DS: Data Data Completed and Pending Pending studies at discharge: Pending at discharge 12/07/23 11:35 Surgical [PTH] Routine Discharge Plan Discharge Anticipated Discharge Date/Time: 12/08/23 10:00 Patient Disposition: Home, Self-Care Discharge Diagnosis: s/p laparoscopic sleeve gastrectomy Referrals: Po,Tamela Enriquez MD [Primary Care Provider] - 1 Week Discharge Medications: Continued albuterol sulfate 90 mcg/actuation HFA aerosol inhaler 2 puff inhalation Q6H PRN (Reason: shortness of breath or wheezing) 30 Days Qty: 8.5 3RF Culturelle 10 billion cell capsule 1 cap PO DAILY diclofenac sodium [Voltaren Arthritis Pain] 1 % gel 4 g topical QID PRN (Reason: Pain) Rx Instructions: apply to single knee, ankle, foot; for foot includes sole/toes/top of foot medroxyprogesterone 10 mg tablet 10 mg PO DAILY (DME) blood pressure monitor Kit See Rx Instructions .ROUTE .MEDSUPPLY Qty: 1 0RF Rx Instructions: As directed levothyroxine 300 mcg tablet 300 mcg PO DAILY@0600 sucralfate 100 mg/mL suspension 10 ml PO BID Qty: 60 0RF Held meclizine 25 mg tablet 25 mg PO TID PRN (Reason: for dizziness) Qty: 90 1RF Hold Instructions: Resume on 12/12/23. rizatriptan 10 mg tablet 10 mg PO DAILY PRN (Reason: migraine headache) Hold Instructions: Resume on 12/15/23. Rx Instructions: do not exceed 3 doses per 24 hrs lisinopril 40 mg tablet 40 mg PO DAILY Hold Instructions: Resume on 12/09/23. Check your blood pressure every morning as soon as you wake up and send it to Dr. Malagon. Do no take the blood pressure medication if the blood pressure is below 120/70. Wait every day to hear back from Dr. Malagon before you take the medication. amlodipine 5 mg tablet 5 mg PO DAILY Hold Instructions: Resume on 12/09/23. Check your blood pressure every morning as soon as you wake up and send it to Dr. Malagon. Do no take the blood pressure medication if the blood pressure is below 120/70. Wait every day to hear back from Dr. Malagon before you take the medication. Discontinued pyridoxine (vitamin B6) 50 mg tablet 50 mg PO DAILY omeprazole 20 mg capsule,delayed release(DR/EC) 20 mg PO DAILY@0630 cholecalciferol (vitamin D3) 25 mcg (1,000 unit) capsule 25 mcg PO DAILY ondansetron 4 mg tablet,disintegrating 4 mg PO Q12H Qty: 20 0RF Rx Instructions: Only take one every 12 hours as needed if you have nausea Discharge Orders: Discharge Order (Routine); Ordered 12/08/23 Ordered By: Wan Malagon Activity on Discharge: No heavy lifting Stand Alone Forms: Patient Portal Discharge page Print Language: Sami Care Plan Goals: weight loss Health Concerns: morbid obesity Plan of Treatment: No tub baths, sex or returning to work until discussed at first post op appointment. No exercise, alcohol, tobacco or illegal drug use. Continue to use incentive spirometer hourly while awake. Walk in home for 5- 10 minutes every 2 hours during the first week. Follow all instructions in the bariatric handbook and call with any questions.Discharge Instructions 1. Please call your doctor or come back to the emergency room should any new symptoms arise. 2. You will receive a courtesy call from [facility] 24-48 hours after discharge. 3. Activity: abstain from alcohol, practice limited stair climbing, no bending, no driving, no exercise, no illicit substances, no lifting, no sex, no tub bath, no work. 4. Diet: continue as discussed with Dr. Malagon. 5. Dressing Change/Wound Care: Your incision is covered by clear bandages and guaze underneath. If the area is tender, you may apply an ice pack for short intervals (no more than 20 minutes on, followed by at least 20 minutes off). Do not apply heat. Do not use creams, lotions, or topical antibiotics unless instructed to do so by your surgeon. These can cause infection or allergic reaction. 6. Call your doctor if: - Your temperature exceeds 101.5 F - You experience excessive pain or swelling - You have an unexpected reaction to medication - You have excessive bleeding - You experience continued vomiting/nausea - Your incision begins to separate - Your incision shows signs of infection such as increased redness, swelling, excessive pain, heat, or drainage (light blood or clear fluid is normal) 7. General instructions: No lifting greater than 5 lbs for 1 week and not more than 20lbs the next 3?weeks. No driving until seen at the office in 5-7 days after surgery. If you do not move your bowels in the next 2 days, please tell?Dr. Malagon. Please walk around your home every hour or two to prevent blood clots from forming in your legs. You do not need to wake from sleeping to walk. Please sleep in a bed or couch to prevent kinking at the hips and knees. Please take your incentive spirometer (your lung transitional studies instructor) home with you and use it for the next few days to prevent pneumonia. You may shower, no hot tubs, baths or swimming pools.?Please follow the post op diet instructions you are?given by Dr Malagon? and text me daily at 5-6pm for an update.?If you have any issues or concerns or questions please communicate this to him via text.? The Celebrate shakes have all of the bariatric vitamins you need if you consume these shakes. If you are drinking other protein shakes, you will need to purchase the Celebrate multivitamins and calcium that are available in the hospital gift shop on the first floor of the main hospital.??Do not take anything without first discussing with Dr Malagon. Please make sure you are consuming at least 40 ounces of fluids per day starting the?day AFTER your discharge from the hospital. Always drink 1-2 ml per minute using the 5ml?syringe. If you drink faster you may experience?bloating,?gas pain, burping, nausea or heartburn. In that case please slow down your pace and use the syringe to?understand better the?proper?pace and volume of drinking. Do not hesitate to contact the office with any questions at . The patient's medical history has been reviewed and they are considered low risk for post op DVT and therefore DVT prophylaxis is not considered necessary. Travel after surgery was reviewed. The patient has not disclosed any travel plans during the first 30 days after surgery and they have been advised that within the first 30 days after surgery any bus, plane, train or car travel over 2 hours in duration is contraindicated due to the possibility of developing blood clots from immobility. Any travel, needs to include periods of ambulation of 10 minutes in duration every 2 hours.? The patient was instructed to discuss any plans for travel during this period with their bariatric surgeon. Assessment: stable s/p laparoscopic sleeve gastrectomy
[2023-12-07] MEDS: HYDROmorphone HCl 0.5 MG/0.5 ML SYRINGE 0.25 MG IVPUSH ×4 (13:14→17:45)
[2023-12-07 13:46] LABS: Hemoglobin 12.6 g/dl (12.0-16.0)
[2023-12-07 14:46] LABS: Anion Gap 12 (12-20); Blood Urea Nitrogen 12 mg/dL (9-16); Calcium 8.6 mg/dL (8.4-10.2); Carbon Dioxide 23 mmol/L (22-29); Chloride 107 mmol/L (96-108); Creatinine Clr Calc Pharmacy 137.5; Estimated Glomerular Filt Rate > 60; Glucose Random 133 mg/dL (60-115); Potassium 4.5 mmol/L (3.3-5.1); Sodium 137 mmol/L (135-145)
[2023-12-07] MEDS: Acetaminophen 1,000 MG/100 ML PIGGYBACK 16.7 MG IV ×2 (15:50→20:59)
--- NOTE | 2023-12-07 17:09 | PHA.MEDREC ---
Addendum entered by Ankita Garsia RPh 12/07/23 18:14: Med rec was reviewed by [facility]. Patient said she was taking omeprazole at home prior to surgery and will start taking pantoprazole post surgery. Original Note: Pharmacy Consult ? Medication Reconciliation Pharmacy has reviewed the medication reconciliation one by nursing. Spoke to Patient to confirm med list. Patient was able to confirm all her medication.
[2023-12-07] MEDS: 0.9 % Sodium Chloride Flush 3 ML SYRINGE IVFLUSH (20:59)
[2023-12-07] MEDS: Famotidine/PF 20 MG/2 ML VIAL IVPUSH (20:59)
[2023-12-08] MEDS: Lactated Ringers 1,000 ML 100 ML IVCONT ×2 (00:18→10:45)
[2023-12-08] MEDS: Acetaminophen 1,000 MG/100 ML PIGGYBACK 16.7 MG IV ×2 (03:06→09:40)
[2023-12-08 04:00] VITALS: BP 115/56; PULSE 66; RESP 16; TEMP 36.6; O2SAT 93
[2023-12-08] MEDS: Levothyroxine Sodium 150 MCG TABLET 300 MCG PO (05:33)
[2023-12-08 06:43] LABS: MANUAL DIFF FLAG NO
[2023-12-08 06:54] LABS: Basophils Percent Auto 0.2 % (0-2); Hematocrit 32.4 % (37.0-47.0); Hemoglobin 11.2 g/dl (12.0-16.0); Imm Gran Abs Auto 0.08 X10*3/uL (0.00-0.03); Imm Gran Pct Auto 0.8 % (0.0-0.4); Lymphocytes Absolute Auto 1.4 X10*3/uL (1.2-4.9); Lymphocytes Percent Auto 14.4 % (20-40); Mean Corpuscular HGB Conc 34.6 g/dl (31.0-35.0); Mean Corpuscular Hemoglobin 30.4 pg (27.0-33.0); Mean Corpuscular Volume 87.8 fL (80.0-98.0); Mean Platelet Volume 10.4 fL (9.4-12.3); Monocytes Absolute Auto 0.8 X10*3/uL (0.1-1.2); Monocytes Percent Auto 8.1 % (2-11); Neutrophils Absolute Auto 7.7 x10*3/uL (2.0-8.3); Neutrophils Percent Auto 76.5 % (45-73); Platelet Count 303 X10*3/uL (160-400); Red Blood Count 3.69 X10*6/uL (4.20-5.50); Red Cell Distribution Width 11.9 % (11.0-16.0)
[2023-12-08] MEDS: Famotidine/PF 20 MG/2 ML VIAL IVPUSH (06:59)
[2023-12-08 07:08] LABS: Anion Gap 14 (12-20); Blood Urea Nitrogen 8 mg/dL (9-16); Calcium 8.6 mg/dL (8.4-10.2); Carbon Dioxide 22 mmol/L (22-29); Chloride 108 mmol/L (96-108); Creatinine Clr Calc Pharmacy 148.6; Estimated Glomerular Filt Rate > 60; Glucose Random 114 mg/dL (60-115); Potassium 3.6 mmol/L (3.3-5.1); Sodium 140 mmol/L (135-145)
[2023-12-08 07:11] VITALS: BP 127/70; PULSE 66; RESP 16; TEMP 36.7; O2SAT 97
[2023-12-08] MEDS: amLODIPine Besylate 5 MG TABLET PO (08:38)
[2023-12-08] MEDS: lisinopriL 40 MG TABLET PO (08:38)
[2023-12-08 11:14] VITALS: BP 128/76; PULSE 70; RESP 16; TEMP 36.6; O2SAT 99
--- NOTE | 2023-12-08 12:09 | MHC.CM.PN ---
PT DISCHARGED HOME TODAY WITH NO SERVICES PRIOR TO BEING SEEN BY CM PER EMR, PT IS INDEPENDENT WITH CARE AND NO CM INTERVENTION REQUIRED
--- NOTE | 2023-12-08 13:28 | HO.POSTANES ---
Post Anesthesia Evaluation Post Anesthesia Evaluation Date of Service: 12/07/23 Vital Signs: Vital Signs Temp Pulse Resp BP Pulse Ox O2 Del Method 12/08/23 11:14 97.9 F 70 16 128/76 99 Room Air 12/08/23 08:59 Room Air 12/08/23 07:11 98.0 F 66 16 127/70 97 Room Air 12/08/23 04:00 97.8 F 66 16 115/56 L 93 Room Air Anesthesia: General Endotracheal-GETA Mental Status: Awake Pain Control: Satisfactory Nausea/Vomiting: None Hydration: Adequate Anesthesia-Related Issues: No Anes. Related Issues
== END 2023-12-08 15:39 | disposition home or self-care (01) | DRG 403 ==
LOC: HO.SSSA 12:26 → HO.S3 12:31
PROVIDERS: Physician Assistant Surgical; Admitting Provider Surgery; PCP Internal Medicine; Visit Provider Surgery
PROC: 0DB64Z3 Excision of Stomach, Percutaneous Endoscopic Approach, Vertical (ICD-10-PCS; CPT 43845; principal; 2023-12-07 08:50)
DX: E66.01 Morbid (severe) obesity due to excess calories (principal); K76.0 Fatty (change of) liver, not elsewhere classified; Q43.3 Congenital malformations of intestinal fixation; E03.9 Hypothyroidism, unspecified; J45.909 Unspecified asthma, uncomplicated; Z68.41 Body mass index [BMI] 40.0-44.9, adult; K21.9 Gastro-esophageal reflux disease without esophagitis; I10 Essential (primary) hypertension; M19.90 Unspecified osteoarthritis, unspecified site; R42 Dizziness and giddiness; G43.909 Migraine, unspecified, not intractable, without status migrainosus; Z79.890 Hormone replacement therapy; Z79.899 Other long term (current) drug therapy
CPT/HCPCS: 36415; 80048; 85014; 85018; 85025; 86850; 86900; 86901; 88304; 88305; 88307; 88342; A4649; C9145; J0131; J0690; J1100; J1170; J2250; J2704; J2795; J3010; J7120

== ENCOUNTER → 2023-12-07 06:57 | Outpatient (BNV) | payer OTHER, SELFPAY | PROVIDERS: Admitting Provider Surgery; PCP Internal Medicine; Visit Provider Surgery | DX: E66.01 Morbid (severe) obesity due to excess calories (principal); Z68.41 Body mass index [BMI] 40.0-44.9, adult; Z90.3 Acquired absence of stomach [part of]; Z98.84 Bariatric surgery status | CPT/HCPCS: 43659; 43775; 99024 ==

== ENCOUNTER 2023-12-15 10:24 | Outpatient (AMB) | payer OTHER, SELFPAY ==
--- NOTE | 2023-12-15 10:50 | MHC.OFFVISWM ---
VS Expanded 12/15/23 10:51 BP 136/65 Blood Pressure Location Rt brachial Blood Pressure Position Sitting Pulse 98 Pulse Source Pulse Oximeter Temp 97.6 F Temperature Source Temporal Artery Scan Pulse Oximetry 100 Oxygen Delivery Method Room Air Height 5 ft 1.5 in Weight 200 lb 3.2 oz BMI 37.2 Body Fat % 42.5 Body Fat Mass 85.0 Fat Free Mass 115.0 Visceral Fat Rating 11.0 Body Water % 41.1 Body Water Mass 82.2 Muscle Mass/Score 109.4 Basal Metabolic Rate/Score 1,604 Intake Visit Reasons: (OV) PO LSG 12/07/23 Allergies oxycodone [OXYCODONE] Allergy (Intermediate, Verified 12/15/23 10:55) RASH,SHAKES, shakiness, body shaking, tremors HPI Comments Details: Patient is a pleasant 48-year-old female who returns to the office today in follow-up. She is 8 days status post sleeve gastrectomy performed on 12/07/2023. Patient doing well overall. She is tolerating celebrate 4 in 1 shakes, 1 scoop each, x3. She is additionally drinking 32 oz of water. She has moved her bowels. She is no longer requiring amlodipine or lisinopril for her blood pressure. Overall, she feels great. [facility] Medical History (Updated 12/10/23 @ 00:03 by Annmarie Melara) Annual physical exam Pre-op examination Malpositioned IUD Hydronephrosis Hypothyroid Fatty liver Morbid obesity Meniscus degeneration Gastroenteritis Bilateral ovarian cysts Memory deficit Anserine bursitis Dawson angioma Shoulder pain, left Elevated LFTs Impaired fasting glucose Postsurgical hypothyroidism Benign essential hypertension Obesity Pericardial effusion Hypercholesterolemia History of thyroid cancer Vitamin D deficiency 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 Family history of von Willebrand disease Patellar fracture Closed right ankle fracture Lumbar disc herniation History of renal calculi Vertigo Migraine Asthma Surgical History (Updated 12/15/23 @ 10:56 by Almita Ross [facility]) Hx of laparoscopic partial gastrectomy Postoperative stitch abscess Postop check Sebaceous cyst H/O colonoscopy S/P removal of left ovary Hx of arthroscopy of left knee S/P left knee arthroscopy Hx of tubal ligation History of pubovaginal sling Hx of cystoscopy History of ankle surgery History of cholecystectomy History of bladder surgery History of thyroid surgery History of back surgery History of section Family History Daughter Von Willebrand disease Maternal Grandmother Family history of bladder cancer Family history of breast cancer Sister Family history of breast cancer Maternal Grandfather Family history of lung cancer Other Asthma Diabetes Emphysema of lung Social History Household Members: Family Housing: House Are you a primary pet care assistant to a significant other at home: No Do you presently have visiting nurse or other home services: No Alcohol intake: never Comment: medicated, see MAR Patient Tobacco Use Status: Never used Tobacco e-Cigarette/Vaping Use: Never Used Second Hand Smoke Exposure: No service: No Current occupational status: employed 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 Cognitive needs: No Hearing needs: No Vision needs: No Female Reproductive History Menstrual Age of Menarche: 14 Physical Exam Vital Signs: Last Vital Signs Temp 97.6 F 12/15/23 10:51 Pulse 98 12/15/23 10:51 BP 136/65 12/15/23 10:51 Pulse Ox 100 12/15/23 10:51 Oxygen Delivery Method Room Air 12/15/23 10:51 BMI result Body Mass Index 37.2 GI Inspection: Yes incision (Clean, dry, intact.) Assessment & Plan Assessment & Plan (1) S/P laparoscopic sleeve gastrectomy: Comment: Dr. Malagon 12/07/2023 esophagogastroscopy, laparoscopic lysis of adhesions, laparoscopic sleeve gastrectomy and laparoscopic gastropexy Code(s): Z98.84 - Bariatric surgery status Category: Surgical Plan: POD 8 s/p LSG on 12/07/[address] Malagon Weight loss prior to surgery was 13.9 pounds or 6.1 % TBWL. Original weight on 08/15/2023 was 224.4 pounds and op weight was 210.5 pounds. Be sure to text Dr Malagon exactly 1 week after surgery your weight from your home scale so he can adjust your meal plan. Continue meal plan until f/u elliott Perdoza in 2 weeks May shower, no submersion in bath for another week Continue abdominal binder with activity and exercise for the next 2 weeks. Exercise prior to surgery was stationary bike and may resume No abdominal exercises for 6 weeks post operatively Will be emailed link to post op video for review Continue to monitor blood pressure and take medications as previously recommended
[2023-12-15 10:51] VITALS: BP 136/65; PULSE 98; TEMP 36.4; O2SAT 100; BMI 37.2
== END 2023-12-15 11:27 | disposition home or self-care (01) ==
PROVIDERS: PCP Internal Medicine; Visit Provider Physician Assistant Surgical
DX: Z98.84 Bariatric surgery status (principal)
CPT/HCPCS: 99024

== ENCOUNTER → 2023-12-15 10:24 | Outpatient (BNVA) | payer OTHER, SELFPAY | PROVIDERS: PCP Internal Medicine; Visit Provider Physician Assistant Surgical | DX: Z90.3 Acquired absence of stomach [part of] (principal) | CPT/HCPCS: 99212 ==

== ENCOUNTER 2023-12-28 12:16 | Outpatient (AMB) | payer OTHER, SELFPAY ==
[2023-12-28 12:19] VITALS: BP 132/81; PULSE 75; O2SAT 99; BMI 34.4
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
== END 2023-12-28 12:42 | disposition home or self-care (01) ==
PROVIDERS: PCP Internal Medicine; Visit Provider Nurse Practitioner
DX: D12.6 Benign neoplasm of colon, unspecified (principal)
CPT/HCPCS: 99213

== ENCOUNTER → 2023-12-28 12:16 | Outpatient (BNVA) | payer OTHER, SELFPAY | PROVIDERS: PCP Internal Medicine; Visit Provider Nurse Practitioner | DX: D12.6 Benign neoplasm of colon, unspecified (principal) | CPT/HCPCS: 99212 ==

== ENCOUNTER 2023-12-29 10:41 | Outpatient (REF) | payer OTHER, SELFPAY ==
--- NOTE | ~2023-12-29 | US_ITS ---
EXAMINATION: US DIAGNOSTIC ULTRASOUND BREAST, left breast CLINICAL INFORMATION: 6 month follow-up left breast mass at 2:00.. COMPARISON: Ultrasound May 2023. TECHNIQUE: Ultrasound of the breast is performed with real-time velasquez scale imaging and color Doppler. FINDINGS: Targeted caudal upper ultrasound the left breast at 2:00 12 cm from the nipple again demonstrates a hypoechoic oval parallel circumscribed solid mass versus complicated cyst measuring 20 x 18 x 9 mm which is increased in size from prior ultrasound 6 months ago. Results are discussed with the patient at time of visit. US/US breast LT limited mamm only IMPRESSION: Hypoechoic oval solid mass at 2:00 increased in size from prior. Recommend ultrasound guided core needle biopsy at this time for confirmation. The findings and recommendations were discussed with the patient and the procedure will be scheduled. ASSESSMENT: BI-RADS 4: Suspicious RECOMMENDATION: Biopsy is recommended at this time and will be scheduled. This patient's information was entered into a reminder system with a target due date for their next mammogram. Electronically signed by: Vidya Duffy DO 12/29/2023 11:47 AM EDT
== END 2023-12-29 10:42 | disposition home or self-care (01) ==
LOC: HO.MAMMO 10:41
PROVIDERS: PCP Internal Medicine; Visit Provider Internal Medicine
DX: R92.2 Inconclusive mammogram (principal)
CPT/HCPCS: 76642

== ENCOUNTER → 2023-12-29 11:00 | Outpatient (BNV) | payer OTHER, SELFPAY | PROVIDERS: PCP Internal Medicine; Visit Provider Internal Medicine | DX: N63.21 Unspecified lump in the left breast, upper outer quadrant (principal) | CPT/HCPCS: 76642 ==

== ENCOUNTER 2024-01-03 11:06 | Outpatient (AMB) | payer OTHER, SELFPAY ==
--- NOTE | 2024-01-03 11:13 | A.OFFPC_ITS ---
Vital Signs 01/03/24 11:14 Height 5 ft 1.5 in Weight 180 lb BMI 33.5 BP 118/72 Blood Pressure Location Lt brachial Position Sitting Pulse 61 Pulse Source Pulse Oximeter Pulse Oximetry (%) 98 Oxygen Delivery Method Room Air Intake Visit Reasons: 3mth Intake Note: Patient is here to follow up on HTN, Asthma, Hypercholesterolemia. Facilities Operations Technician Required: No Busser: Not Required per policy Accompanied by: Self / Same As Patient Allergies oxycodone [OXYCODONE] Allergy (Intermediate, Verified 01/03/24 11:14) RASH,SHAKES, shakiness, body shaking, tremors Tobacco use date assessed: 01/03/24 Dental Screening Dental Screen Date: 06/13/23 HPI 3mth HPI Details 48-year-old obese female with GERD asthm a history of thyroid cancer now with postsurgical hypothyroidism hypertension hypercholesterolemia last seen for physical exam in September. Patient comes in for follow-up. Patient is due for mammogram and up-to-date with colonoscopy patient had an ultrasound done in December and was advised to have an ultrasound-guided biopsy. It is solid mass 02:00 o'clock left breast patient also has met with Gastroenterology status post colonoscopy tubular adenoma advised repeat in 3 years patient also had status post sleeve gastrectomy December 07 2023 [facility] Medical History (Updated 01/03/24 @ 18:44 by Tamela Pelaez MD) Dysphagia Bile salt-induced diarrhea Hypothyroid Complex ovarian cyst Nephrolithiasis Meniscus degeneration Obesity Osteoarthritis of right patellofemoral joint Headache Left knee pain History of thyroid cancer Annual physical exam Pre-op examination Malpositioned IUD Hydronephrosis Fatty liver Morbid obesity Gastroenteritis Bilateral ovarian cysts Memory deficit Anserine bursitis Dawson angioma Shoulder pain, left Elevated LFTs Impaired fasting glucose Postsurgical hypothyroidism Benign essential hypertension Pericardial effusion Hypercholesterolemia Vitamin D deficiency 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 Family history of von Willebrand disease Patellar fracture Closed right ankle fracture Lumbar disc herniation History of renal calculi Vertigo Migraine Asthma Surgical History (Updated 01/03/24 @ 11:44 by Tamela Pelaez MD) S/P laparoscopic sleeve gastrectomy Hx of laparoscopic partial gastrectomy Postoperative stitch abscess Postop check Sebaceous cyst H/O colonoscopy S/P removal of left ovary Hx of arthroscopy of left knee S/P left knee arthroscopy Hx of tubal ligation History of pubovaginal sling Hx of cystoscopy History of ankle surgery History of cholecystectomy History of bladder surgery History of thyroid surgery History of back surgery History of section Family History Daughter Von Willebrand disease Maternal Grandmother Family history of bladder cancer Family history of breast cancer Sister Family history of breast cancer Maternal Grandfather Family history of lung cancer Other Asthma Diabetes Emphysema of lung Social History Household Members: Family Housing: House Are you a primary health care coordinator to a significant other at home: No Do you presently have visiting nurse or other home services: No Alcohol intake: never Comment: medicated, see MAR Patient Tobacco Use Status: Never used Tobacco e-Cigarette/Vaping Use: Never Used Second Hand Smoke Exposure: No service: No Current occupational status: employed 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 Cognitive needs: No Hearing needs: No Vision needs: No Female Reproductive History Menstrual Age of Menarche: 14 Questionnaire Thrive Questionnaire Date Thrive assessed: 06/13/23 Are you currently unemployed and looking for a job?: I choose not to answer this question ACACIA-7 AMB Questionnaire ACACIA-7 Date ACACIA - 7 assessed: 06/13/23 Source: Developed by Drs. Juan Vega, Tatiana Dumas, Nikolay Ling and colleagues, with an educational gia from [employer]. Physical exam (Primary Care) Vital Signs: Last Vital Signs Pulse 61 01/03/24 11:14 BP 118/72 01/03/24 11:14 Pulse Ox 98 01/03/24 11:14 Oxygen Delivery Method Room Air 01/03/24 11:14 BMI result Body Mass Index 33.5 Tobacco/Smoking Status: Tobacco use Status Tobacco use date assessed 01/03/24 01/03/24 11:18 Patient Tobacco Use Status Never used Tobacco 01/03/24 11:18 e-Cigarette/Vaping Use Never Used 01/03/24 11:18 Thrive Assessment: Date of Thrive Assessment Date Thrive assessed 06/13/23 01/03/24 11:18 Const General: alert; No acute distress Eyes Conjunctivae: conjunctivae normal Resp Auscultation: clear to auscultation bilaterally Cardio Rate: regular rate Rhythm: regular rhythm GI Inspection: Yes normal to inspection Extrem General: Yes normal to inspection and No edema Office Procedures Flu Questionnaire Does the patient have a severe egg allergy?: No Does the patient have severe life threatening allergies?: No Does the patient have a fever or illness today?: No Has the patient ever had Guillain-Middlebrook Syndrome?: No Has the patient ever had any past reaction to a flu shot?: No Immunizations Fluarix Triv [id number] (PF) 45 mcg (15 mcg x 3)/0.5 mL IM syringe Performing Provider: Tamela Pelaez MD [facility] [place] [facility] Administered by: Antonia Diaz LPN on 01/03/24 11:25 Dose Route Admin Location Dispensed Lot Number Expiration Date [facility] Quality Assurance Lab Technician 0.5 mL IM Left Deltoid 0.5 mL [id number] 09/24/24 [id number] [employer] VIS Given Date VIS Provided VIS Publication Date 01/03/24 Single Vaccine 20 Eligibility Eligibility Date Funding Source Not [facility] Eligible 01/03/24 Private Coding Level of Care Code Est Pt Level 4 (48258) Diagnoses Left breast mass N63.20 Tubular adenoma of colon D12.6 Postsurgical hypothyroidism E89.0 S/P laparoscopic sleeve gastrectomy Z98.84 Anemia, unspecified type D64.9 Anemia type: unspecified type Assessment & Plan Assessment & Plan (1) Left breast mass: Comment: December 2023 Code(s): N63.20 - Unspecified lump in the left breast, unspecified quadrant Category: Medical Plan: Patient has been advised to get a biopsy (2) Tubular adenoma of colon: Comment: 11/2023 scope= 1 TA and an inflammatory polyp repeat in 3 years Code(s): D12.6 - Benign neoplasm of colon, unspecified Category: Medical Plan: Repeat testing in 3 years (3) Postsurgical hypothyroidism: Comment: S/P thyroidectomy by Dr. Dalton in 2005 Code(s): E89.0 - Postprocedural hypothyroidism Category: Medical Plan: Continue with thyroid medication (4) S/P laparoscopic sleeve gastrectomy: Comment: Dr. Malagon 12/07/2023 esophagogastroscopy, laparoscopic lysis of adhesions, laparoscopic sleeve gastrectomy and laparoscopic gastropexy Code(s): Z98.84 - Bariatric surgery status Category: Surgical Plan: Continue to follow-up with bariatric surgery (5) Anemia: Code(s): D64.9 - Anemia, unspecified Category: Medical Qualifiers: Anemia type: unspecified type Qualified Code(s): D64.9 - Anemia, unspecified Plan: Will continue to work it up Orders: Orders Influenza [id number] Immunization Today Z23 - Encounter for immunization Free T4 (Free Thyroxine) Today E89.0 - Postprocedural hypothyroidism Thyroid Stimulating Hormone Today E89.0 - Postprocedural hypothyroidism Complete Blood Count Auto Diff Today D64.9 - Anemia, unspecified Ferritin Today D64.9 - Anemia, unspecified IRON PROFILE Today D64.9 - Anemia, unspecified Reticulocyte Count Today D64.9 - Anemia, unspecified Vitamin B12 and Folate Today D64.9 - Anemia, unspecified
[2024-01-03 11:14] VITALS: BP 118/72; PULSE 61; O2SAT 98; BMI 33.5
== END 2024-01-03 11:51 | disposition home or self-care (01) ==
PROVIDERS: PCP Internal Medicine; Visit Provider Internal Medicine
DX: N63.20 Unspecified lump in the left breast, unspecified quadrant (principal); D12.6 Benign neoplasm of colon, unspecified; E89.0 Postprocedural hypothyroidism; Z98.84 Bariatric surgery status; D64.9 Anemia, unspecified; Z23 Encounter for immunization

== ENCOUNTER → 2024-01-03 11:06 | Outpatient (BNVA) | payer OTHER, SELFPAY | PROVIDERS: PCP Internal Medicine; Visit Provider Internal Medicine | DX: Z23 Encounter for immunization (principal); N63.20 Unspecified lump in the left breast, unspecified quadrant; D12.6 Benign neoplasm of colon, unspecified; E89.0 Postprocedural hypothyroidism; D64.9 Anemia, unspecified; Z98.84 Bariatric surgery status; Z98.890 Other specified postprocedural states | CPT/HCPCS: 90471; 90656; 99212 ==

== ENCOUNTER 2024-01-03 12:42 | Outpatient (AMB) | payer OTHER, SELFPAY ==
--- NOTE | 2024-01-03 12:53 | A.OFFVIS_ITS ---
Intake Visit Reasons: OV- Left knee follow up , 05/05/22 [place] Intake Note: Alicia is a 48 year old female who presents today for a follow up for her left knee 05/05/23. Patient had a Ultrasound a couple months ago which they informed her that she still has a tear. She mentions that she is going to get a 3 way nerve block because her last nerve block didn't give her relief. Allergies oxycodone [OXYCODONE] Allergy (Intermediate, Verified 01/03/24 11:14) RASH,SHAKES, shakiness, body shaking, tremors HPI HPI OV- Left knee follow up , 05/05/22 NE: Details: 48-year-old female who presents in the office today 18 months status post left knee arthroscopy with medial and lateral partial meniscectomy and chondroplasty, which was performed on 05/05/[address] Butt. I last saw the patient in the office on 11/26/23 when we reviewed the MRI of the right knee, and she was given a cortisone injection to her right knee. She was referred to physical therapy to work on ROM and strengthening for her right knee. The patient was seen at [facility] on 12/22/23 for left knee pain. She stated that she completed the course of physical therapy, which helped some of her left knee pain. She is status post left saphenous nerve block, which was performed on 01/24/23 at [facility], which provided 100% pain relief for approximately 8 hours after the injection, and left saphenous nerve Sprint PNS placement that was performed on 03/09/[address] Tobi Lovett. Unfortunately, the saphenous nerve Sprint provided temporary relief. Subsequently, she was given treatment options between genicular nerve blocks followed by genicular RFA pending results of the diagnostic testing versus PRP injection for her left knee pain. She agreed to proceed with PRP injection. She received PRP injection with intrameniscal infiltration in the left medial meniscus on 09/22/23. She received only 25% relief from the PRP injection and deferred repeating the injection again. She was then scheduled for a fluoroscopy-guided left diagnostic genicular nerve block with local anesthesia. While in the office today, the patient reports she had an ultrasound of the left knee a couple months ago that revealed she still has a tear. She mentions she is scheduled for a three way nerve block on 01/04/24, because her last nerve block did not provide her relief. [facility] Medical History (Updated 01/03/24 @ 11:46 by Tamela Pelaez MD) Dysphagia Bile salt-induced diarrhea Hypothyroid Complex ovarian cyst Nephrolithiasis Meniscus degeneration Obesity Osteoarthritis of right patellofemoral joint Headache Left knee pain History of thyroid cancer Annual physical exam Pre-op examination Malpositioned IUD Hydronephrosis Fatty liver Morbid obesity Gastroenteritis Bilateral ovarian cysts Memory deficit Anserine bursitis Dawson angioma Shoulder pain, left Elevated LFTs Impaired fasting glucose Postsurgical hypothyroidism Benign essential hypertension Pericardial effusion Hypercholesterolemia Vitamin D deficiency 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 Family history of von Willebrand disease Patellar fracture Closed right ankle fracture Lumbar disc herniation History of renal calculi Vertigo Migraine Asthma Surgical History (Updated 01/03/24 @ 11:44 by Tamela Pelaez MD) S/P laparoscopic sleeve gastrectomy Hx of laparoscopic partial gastrectomy Postoperative stitch abscess Postop check Sebaceous cyst H/O colonoscopy S/P removal of left ovary Hx of arthroscopy of left knee S/P left knee arthroscopy Hx of tubal ligation History of pubovaginal sling Hx of cystoscopy History of ankle surgery History of cholecystectomy History of bladder surgery History of thyroid surgery History of back surgery History of section Family History Daughter Von Willebrand disease Maternal Grandmother Family history of bladder cancer Family history of breast cancer Sister Family history of breast cancer Maternal Grandfather Family history of lung cancer Other Asthma Diabetes Emphysema of lung Social History Household Members: Family Housing: House Are you a primary home care consultant to a significant other at home: No Do you presently have visiting nurse or other home services: No Alcohol intake: never Comment: medicated, see MAR Patient Tobacco Use Status: Never used Tobacco e-Cigarette/Vaping Use: Never Used Second Hand Smoke Exposure: No service: No Current occupational status: employed 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 Cognitive needs: No Hearing needs: No Vision needs: No Female Reproductive History Menstrual Age of Menarche: 14 Review of Systems Const All systems reviewed & are unremarkable except as noted in HPI and below Physical Exam Const General: cooperative, healthy appearing and no acute distress Resp Effort & Inspection: normal respiratory effort and able to speak in complete sentences Cardio Rate: regular rate Peripheral pulses: Peripheral pulses 2+ throughout GI Palpation (GI): Soft to palpation Skin Lesions: no lesions Rashes: no rashes Extrem Other: Left knee: Normal to inspection. No ecchymosis, erythema or joint effusion. Positive tenderness to palpation and positive Steineman?s in the medial joint line. NVI. Assessment & Plan Assessment & Plan (1) S/P left knee arthroscopy: Comment: left knee arthroscopy with medial and lateral partial meniscectomy and chondroplasty 05/05/2022 [place] Code(s): Z98.890 - Other specified postprocedural states Category: Surgical Plan Ms. Vargas is a 48-year-old female who presents in the office today 18 months status post left knee arthroscopy with medial and lateral partial meniscectomy and chondroplasty, which was performed on 05/05/[address] Butt. I last saw the patient in the office on 11/26/23 when we reviewed the MRI of the right knee, and she was given a cortisone injection to her right knee. She was referred to physical therapy to work on ROM and strengthening for her right knee. The patient was seen at [facility] on 12/22/23 for left knee pain. She stated that she completed the course of physical therapy, which helped some of her left knee pain. She is status post left saphenous nerve block, which was performed on 01/24/23 at [facility], which provided 100% pain relief for approximately 8 hours after the injection, and left saphenous nerve Sprint PNS placement that was performed on 03/09/[address] Tobi Lovett. Unfortunately, the saphenous nerve Sprint provided temporary relief. Subsequently, she was given treatment options between genicular nerve blocks followed by genicular RFA pending results of the diagnostic testing versus PRP injection for her left knee pain. She agreed to proceed with PRP injection. She received PRP injection with intrameniscal infiltration in the left medial meniscus on 09/22/23. She received only 25% relief from the PRP injection and deferred repeating the injection again. She was then scheduled for a fluoroscopy-guided left diagnostic genicular nerve block with local anesthesia. While in the office today, the patient reports she had an ultrasound of the left knee a couple months ago that revealed she still has a tear. She mentions she is scheduled for a three way nerve block on 01/04/24, because her last nerve block did not provide her relief. The patient is scheduled for a three way nerve block on 01/04/24 with [facility]. She is adamant to discuss surgical intervention with Dr. Butt. Follow-up will be with Dr. Butt in 1-2 weeks after nerve block is performed, or sooner if needed. Patient Instructions: Scribed by Lexis Teran senior medical technologist, for Anahy Gutierrez PA-C on 01/03/24 at 1:35 pm EST. Coding Level of Care Code Est Pt Level 3 (13987) Diagnoses S/P left knee arthroscopy Z98.890
== END 2024-01-03 13:30 | disposition home or self-care (01) ==
PROVIDERS: PCP Internal Medicine; Visit Provider Physician Assistant
DX: S83.242D Other tear of medial meniscus, current injury, left knee, subsequent encounter (principal); S83.282D Other tear of lateral meniscus, current injury, left knee, subsequent encounter
CPT/HCPCS: 99213

== ENCOUNTER 2024-01-04 09:42 | Outpatient (REF) | payer OTHER, SELFPAY ==
[2024-01-04 10:39] LABS: MANUAL DIFF FLAG NO
[2024-01-04 10:44] LABS: Basophils Absolute Auto 0.1 X10*3/uL (0.0-0.2); Basophils Percent Auto 0.6 % (0-2); Eosinophils Absolute Auto 0.1 X10*3/uL (0.0-0.4); Eosinophils Percent Auto 1.1 % (0-4); Hematocrit 36.9 % (37.0-47.0); Hemoglobin 12.1 g/dl (12.0-16.0); Imm Gran Abs Auto 0.03 X10*3/uL (0.00-0.03); Imm Gran Pct Auto 0.4 % (0.0-0.4); Immature Retic Fraction 7.9 % (3.0-15.9); Lymphocytes Absolute Auto 1.8 X10*3/uL (1.2-4.9); Lymphocytes Percent Auto 20.9 % (20-40); Mean Corpuscular HGB Conc 32.8 g/dl (31.0-35.0); Mean Corpuscular Hemoglobin 29.4 pg (27.0-33.0); Mean Corpuscular Volume 89.6 fL (80.0-98.0); Mean Platelet Volume 10.2 fL (9.4-12.3); Monocytes Absolute Auto 0.6 X10*3/uL (0.1-1.2); Platelet Count 307 X10*3/uL (160-400); Red Blood Count 4.12 X10*6/uL (4.20-5.50); Red Cell Distribution Width 12.4 % (11.0-16.0); Retic HGB Equivalent 32.6 pg (30.0-35.0); Reticulocyte Percent 1.8 % (0.5-1.8); Reticulocytes Absolute 0.075 X10*6/uL (0.026-0.095); White Blood Count 8.6 X10*3/uL (4.8-10.8)
[2024-01-04 11:07] LABS: Iron 42 mcg/dL (30-160); Percent Iron Saturation 21 % (15-50); Total Iron Binding Capacity 199 mcg/dL (228-428); Unsaturated Iron Binding 157 ug/dL
[2024-01-04 11:27] LABS: Ferritin 258 ng/mL (10-250); Free T4 (Free Thyroxine) 1.36 ng/dL (0.71-1.85)
[2024-01-04 11:35] LABS: Folate 6.3 ng/mL (> or = 4.0); Vitamin B12 468 pg/mL (200-900)
[2024-01-04 12:07] LABS: Thyroid Stimulating Hormone < 0.01 uIU/mL (0.32-4.0)
== END 2024-01-04 09:43 | disposition home or self-care (01) ==
LOC: HO.10HDL 09:42
PROVIDERS: Visit Provider Internal Medicine
DX: E89.0 Postprocedural hypothyroidism (principal); D64.9 Anemia, unspecified; M17.12 Unilateral primary osteoarthritis, left knee; Z98.890 Other specified postprocedural states
CPT/HCPCS: 36415; 64454; 82607; 82728; 82746; 83540; 84439; 84443; 85025; 85045; J2795

== ENCOUNTER 2024-01-04 10:26 | Outpatient (AMB) | payer OTHER, SELFPAY ==
--- NOTE | 2024-01-04 10:38 | A.OFFVIS_ITS ---
Vital Signs 01/04/24 10:39 Height 5 ft 1.5 in Weight 180 lb BMI 33.5 BP 134/81 Blood Pressure Location Lt brachial Position Sitting Respiration 16 Pulse 73 Pulse Source Pulse Oximeter Pulse Oximetry (%) 99 Oxygen Delivery Method Room Air Intake Visit Reasons: Left Dx GNB Allergies oxycodone [OXYCODONE] Allergy (Intermediate, Verified 01/13/24 10:07) RASH,SHAKES, shakiness, body shaking, tremors Medication List - Last Reconciled 01/04/24 by Samia Reyna LPN albuterol sulfate 90 mcg/actuation 2 puffs inhalation Q6H PRN 30 days amlodipine 5 mg PO DAILY blood pressure monitor As directed diclofenac sodium 1% (Voltaren Arthritis Pain) 4 grams topical QID PRN Lactobacillus rhamnosus GG (Culturelle) 1 cap PO DAILY levothyroxine 300 mcg PO DAILY@0600 lisinopril 40 mg PO DAILY meclizine 25 mg PO TID PRN medroxyprogesterone 10 mg PO DAILY rizatriptan 10 mg PO DAILY PRN sucralfate 10 mL PO BID HPI HPI Left Dx GNB: Details: 48-year-old female who presents to the office for left diagnostic genicular nerve block. Patient reports she has been having left knee pain since 04/2021, describes as aching and throbbing. She reports she has clicking sensation and swelling in the left knee which is bothersome especially while walking. She does not have constant pain. She underwent left knee arthroscopic surgery after she injured her knee at work. She noticed mild improvement in her pain for sometime after surgery. Pain worsens with movement, interfers with her ADLs, and is constant throughout the day. She had physical therapy with some benefit, and she continues to do home exercise program without any improvement. She is using topical gel cream for the pain. She has tried Tylenol and Motrin in the past without any improvement. She had an ultrasound of the left knee a couple months ago which revealed she still has a tear. She denies any improvement following PRP injections. She would like to hold off on repeating them at this time. She was seen by Dr. Garcia on 11/30/23, and discussed diagnostic interventional testing, steroid injections, peripheral nerve stimulation with Sprint, RFA and more permanent neuromodulation. She was recommended another surgery for torn meniscus by Dr. Butt, and has a follow- up appointment with him on 01/10/24. She reports she had pain relief for 48 hours following nerve block last year. Patient also has osteoarthritis of the right knee and recently injured her right knee. She is currently following up with Orthopedics for it. She had received cortisone injection, and is doing physical therapy for her right knee. Denies any recent cough, cold, infection, fever or other significant changes in medical history since last office visit. Past Procedure: 09/22/23: Platelet Rich Plasma Injection: 25% relief PRP Joint Injection Left knee medial meniscus PRP injection [facility] Medical History (Updated 01/11/24 @ 21:12 by Tamela Pelaez MD) Dysphagia Bile salt-induced diarrhea Hypothyroid Complex ovarian cyst Nephrolithiasis Meniscus degeneration Obesity Osteoarthritis of right patellofemoral joint Headache Left knee pain History of thyroid cancer Annual physical exam Pre-op examination Malpositioned IUD Hydronephrosis Fatty liver Morbid obesity Gastroenteritis Bilateral ovarian cysts Memory deficit Anserine bursitis Dawson angioma Shoulder pain, left Elevated LFTs Impaired fasting glucose Postsurgical hypothyroidism Benign essential hypertension Pericardial effusion Hypercholesterolemia Vitamin D deficiency 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 Family history of von Willebrand disease Patellar fracture Closed right ankle fracture Lumbar disc herniation History of renal calculi Vertigo Migraine Asthma Surgical History (Updated 01/13/24 @ 11:06 by Ed Butt MD) S/P laparoscopic sleeve gastrectomy Hx of laparoscopic partial gastrectomy Postoperative stitch abscess Postop check Sebaceous cyst H/O colonoscopy S/P removal of left ovary Hx of arthroscopy of left knee S/P left knee arthroscopy Hx of tubal ligation History of pubovaginal sling Hx of cystoscopy History of ankle surgery History of cholecystectomy History of bladder surgery History of thyroid surgery History of back surgery History of section Family History Daughter Von Willebrand disease Maternal Grandmother Family history of bladder cancer Family history of breast cancer Sister Family history of breast cancer Maternal Grandfather Family history of lung cancer Other Asthma Diabetes Emphysema of lung Social History Household Members: Family Housing: House Are you a primary urgent care physician to a significant other at home: No Do you presently have visiting nurse or other home services: No Alcohol intake: never Comment: medicated, see MAR Patient Tobacco Use Status: Never used Tobacco e-Cigarette/Vaping Use: Never Used Second Hand Smoke Exposure: No service: No Current occupational status: employed 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 Cognitive needs: No Hearing needs: No Vision needs: No Female Reproductive History Menstrual Age of Menarche: 14 Physical Exam Vital Signs: Last Vital Signs Pulse 73 01/04/24 10:39 Resp 16 01/04/24 10:39 BP 134/81 01/04/24 10:39 Pulse Ox 99 01/04/24 10:39 Oxygen Delivery Method Room Air 01/04/24 10:39 BMI result Body Mass Index 33.5 General: Appears afebrile. Alert and oriented. Mood and affect appropriate. Follows and participates in conversation appropriately. Respiratory effort is unlabored. Able to transition from sit to stand unassisted. Ambulates with bilaterally normal heel strike and toe off. Office Procedures Nerve Block Details: Genicular Nerves, ultrasound guided - Superior medial, superior lateral, and inferior medial genicular nerve block After obtaining written consent, pre-procedure blood pressure and heart rate were stable and recorded in the nursing record. Standard monitors were applied. The patient was placed supine on the fluoroscopy table. The area overlying the peripheral nerves was widely prepped with chloraprep, allowed to dry and steri pernell draped. Using fluoroscopy, the appropriate landmarks were identified. The skin overlying the target was anesthetized with 0.5% lidocaine. A 25 gauge 1.5 inch needle was advanced under ultrasound guidance to the appropriate landmark of each peripheral nerve. Verification using lateral and AP views. Aspiration was negative for heme and synovial fluid. 1 cc of ropivacaine 0.5% was injected taylor und each targeted nerve. The needles were removed, skin cleansed and a sterile bandage was applied. The patient tolerated the procedure well and no complications were encountered. Following the procedure the patient's vital signs were stable. The patient was discharged home in good condition with post- procedural instructions. Time Out: Immediately prior to the procedure, the following was verbally confirmed that there is a signed consent form and that the correct patient, planned procedure, site and side are consistent with documentation and that necessary equipment and/or blood products are available prior to the start of the case. [id number] Nerve Block Procedure code (CPT) selection complete Assessment & Plan Assessment & Plan (1) Hx of arthroscopy of left knee: Comment: 04/2022 Code(s): Z98.890 - Other specified postprocedural states Category: Medical (2) Osteoarthritis of left knee: Code(s): M17.12 - Unilateral primary osteoarthritis, left knee Category: Medical Qualifiers: Osteoarthritis type: unspecified Qualified Code(s): M17.12 - Unilateral primary osteoarthritis, left knee Plan Patient is status post left diagnostic genicular nerve blocks. Patient tolerated procedure well and was discharged home in stable condition with discharge instructions. All questions were answered. Advised patient to follow up 1 week aftern her visit with Dr. Butt to discuss next steps. Scribed for Dr. Saldivar by Yani medical office secretary, on 01/04/2024. I, Dr. Saldivar, have personally reviewed and agree with the information entered by the scribe. Coding Level of Care Code Est Pt Level 4 (70010) Diagnoses Hx of arthroscopy of left knee Z98.890 Osteoarthritis of left knee, unspecified osteoarthritis type M17.12 Osteoarthritis type: unspecified CPT Codes Nerve Block - Nerve Block: [id number] Nerve Block ([id number])
[2024-01-04 10:39] VITALS: BP 134/81; PULSE 73; RESP 16; O2SAT 99; BMI 33.5
== END 2024-01-04 11:22 | disposition home or self-care (01) ==
PROVIDERS: PCP Internal Medicine; Visit Provider Internal Medicine
DX: M17.12 Unilateral primary osteoarthritis, left knee (principal)
CPT/HCPCS: 64454

== ENCOUNTER 2024-01-10 08:23 | Outpatient (AMB) | payer OTHER, SELFPAY ==
--- NOTE | 2024-01-10 08:25 | MHC.OFFVIS ---
Vital Signs 01/10/24 08:26 Height 5 ft 1.5 in Weight 173 lb BMI 32.2 Intake Visit Reasons: Lft Breast US biopsy 2 o'clock mass Intake Note: Patient is seen in office for ultrasound biopsy consults, left breast 2 o'clock mass. Pt c/o: reports no breast complaints at this time. Dictating Transcribing Machine Servicer Required: No Accompanied by: Self / Same As Patient Allergies oxycodone [OXYCODONE] Allergy (Intermediate, Verified 01/10/24 08:32) RASH,SHAKES, shakiness, body shaking, tremors Medication List - Last Reconciled 01/10/24 by Clarence Fu MD albuterol sulfate 90 mcg/actuation 2 puffs inhalation Q6H PRN 30 days amlodipine 5 mg PO DAILY blood pressure monitor As directed diclofenac sodium 1% (Voltaren Arthritis Pain) 4 grams topical QID PRN Lactobacillus rhamnosus GG (Culturelle) 1 cap PO DAILY levothyroxine 300 mcg PO DAILY@0600 lisinopril 40 mg PO DAILY meclizine 25 mg PO TID PRN medroxyprogesterone 10 mg PO DAILY rizatriptan 10 mg PO DAILY PRN sucralfate 10 mL PO BID HPI Comments Details: 48-year-old female patient presenting with a screening mammogram and ultrasound which revealed a density in the left breast at the 2 o'clock position felt to be low suspicion for malignancy (BI-RADS 3). Six-month follow-up ultrasound was recommended. She underwent this study on 12/29/2023 which shows the density has increased in size. Is now regarded as high suspicion for malignancy and ultrasound-guided core biopsy recommended. Patient denies any palpable mass in either breast. Her family history is significant for breast cancer in her maternal grandmother. Family history of lung cancer and colon cancer. Her daughter was diagnosed with von Willebrand's. The patient has a history of thyroid cancer in his undergone thyroidectomy as well as radiation treatment. She was told the thyroid cancer is in her lymph nodes. She denies a previous history of breast problems or breast surgery. She is with 1 spontaneous ABD. She denies breast-feeding her children. [facility] Medical History Dysphagia Bile salt-induced diarrhea Hypothyroid Complex ovarian cyst Nephrolithiasis Meniscus degeneration Obesity Osteoarthritis of right patellofemoral joint Headache Left knee pain History of thyroid cancer Annual physical exam Pre-op examination Malpositioned IUD Hydronephrosis Fatty liver Morbid obesity Gastroenteritis Bilateral ovarian cysts Memory deficit Anserine bursitis Dawson angioma Shoulder pain, left Elevated LFTs Impaired fasting glucose Postsurgical hypothyroidism Benign essential hypertension Pericardial effusion Hypercholesterolemia Vitamin D deficiency 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 Family history of von Willebrand disease Patellar fracture Closed right ankle fracture Lumbar disc herniation History of renal calculi Vertigo Migraine Asthma Surgical History S/P laparoscopic sleeve gastrectomy Hx of laparoscopic partial gastrectomy Postoperative stitch abscess Postop check Sebaceous cyst H/O colonoscopy S/P removal of left ovary Hx of arthroscopy of left knee S/P left knee arthroscopy Hx of tubal ligation History of pubovaginal sling Hx of cystoscopy History of ankle surgery History of cholecystectomy History of bladder surgery History of thyroid surgery History of back surgery History of section Family History Daughter Von Willebrand disease Maternal Grandmother Family history of bladder cancer Family history of breast cancer Sister Family history of breast cancer Maternal Grandfather Family history of lung cancer Other Asthma Diabetes Emphysema of lung Social History Household Members: Family Housing: House Are you a primary farm or ranch animal caretaker to a significant other at home: No Do you presently have visiting nurse or other home services: No Alcohol intake: never Comment: medicated, see MAR Patient Tobacco Use Status: Never used Tobacco e-Cigarette/Vaping Use: Never Used Second Hand Smoke Exposure: No service: No Current occupational status: employed 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 Cognitive needs: No Hearing needs: No Vision needs: No Female Reproductive History Menstrual Age of Menarche: 14 Total pregnancies: 4 Full term: 3 Ab spontaneous: 1 Review of Systems Const All systems reviewed & are unremarkable except as noted in HPI and below Denies chills, Denies fever(s), Denies headache(s), Denies poor appetite and Denies weakness ENT Denies headache(s) Card Denies chest pain, Denies irregular heart rhythm, Denies palpitations and Denies dyspnea Resp Denies cough, Denies excessive phlegm production and Denies dyspnea GI Denies abdominal pain, Denies bloating, Denies change in bowel habits, Denies constipation, Denies heartburn, Denies diarrhea, Denies nausea and Denies vomiting Denies urinary frequency Musc Denies back pain, Denies muscle weakness and Denies numbness Skin/Breast Denies changing lesions and Denies unusual bruising Neuro Denies headache(s), Denies numbness, Denies paresthesias and Denies weakness Psych Denies anxiety and Denies depression Endo Denies palpitations Chet/Lymph Denies lymphadenopathy Physical Exam Vital Signs: BMI result Body Mass Index 32.2 Const General: cooperative and no acute distress Nutritional Appearance: well nourished Orientation/consciousness: patient oriented x3 Limitations: no limitations HEENT Head: Yes normocephalic and Yes atraumatic Ears: hearing grossly normal bilaterally Chest Other: Left breast: Tenderness in the 12:00 o'clock and 2 o'clock position with diffuse fibrocystic changes. A palpable density is noted in the 2 o'clock position a proximally 10 cm from the nipple. This is exquisitely tender to palpation. The density is mobile within the breast tissue and does not appear fixed to the skin or chest wall. No overlying skin changes are identified. Nipple discharge could not be expressed. There are no enlarged lymph nodes. Right breast: No skin changes, nipple discharge, nipple retraction, palpable mass or enlarged lymph nodes. There is a diffuse fibrocystic change throughout the breast tissue. No tenderness is elicited. Chest/axillae images: 1. Palpable mass left breast 2 o'clock position. Resp Effort & Inspection: normal respiratory effort, no audible wheezes, no cough and no respiratory distress Cardio Jugular venous distension: no JVD GI Inspection: Yes normal to inspection Skin Other: Warm, dry, no rash Neuro General: patient oriented x3 Extrem General: Yes no clubbing, cyanosis or edema Assessment & Plan Assessment & Plan (1) Left breast mass: Comment: December 2023 Code(s): N63.20 - Unspecified lump in the left breast, unspecified quadrant Category: Medical Qualifiers: Breast mass location: upper outer quadrant Qualified Code(s): N63.21 - Unspecified lump in the left breast, upper outer quadrant Plan 48-year-old female patient presenting with a strong family history of breast cancer now found to have a palpable mass in the left breast at the upper outer quadrant. Ultrasound-guided core biopsy is scheduled for later today. She denies a previous history of breast problems or breast surgery. Examination today does reveal a palpable mass in the left breast at the upper outer quadrant which is tender to palpation. It does have a benign feel. No other palpable mass or enlarged lymph nodes are appreciated. We discussed genetic testing and she wishes to proceed with this testing today. She will follow-up in a proximally 1 week to review the pathology results and discuss treatment options. Coding Level of Care Code New Pt Level 4 (89103) Diagnoses Mass of upper outer quadrant of left breast N63.21 Breast mass location: upper outer quadrant
[2024-01-10 08:26] VITALS: BMI 32.2
== END 2024-01-10 09:12 | disposition home or self-care (01) ==
PROVIDERS: PCP Internal Medicine; Visit Provider Surgery
DX: N63.21 Unspecified lump in the left breast, upper outer quadrant (principal)
CPT/HCPCS: 99204

== ENCOUNTER 2024-01-10 09:25 | Outpatient (REF) | payer OTHER, SELFPAY ==
--- NOTE | ~2024-01-10 | MM_ITS ---
PROCEDURE: US GUIDED BREAST BIOPSY, LEFT CLINICAL INFORMATION: Enlarging oval mass versus complicated cyst left breast 2:00 axis, 12 cm from the nipple. COMPARISON: Ultrasound dated 12/29/2023 left breast. Ultrasound left breast with diagnostic left mammography 06/01/2023, and screening mammography bilateral to 05/05/2023. PROCEDURAL DETAILS: The details of the procedure, as well as the risks, benefits, and alternatives to the procedure were explained to the patient in detail and all of her questions were answered, after which written informed consent was obtained. Site and side were confirmed. Prior to the procedure, sonography revealed an oval mass versus complicated cyst, 2:00 axis left breast, 12 cm from the nipple, measuring 1.8 x 0.9 x 2.0 cm. A time-out was performed, the lesion intended for biopsy was targeted, and the skin of the overlying left breast was then marked, prepped and draped in the usual sterile fashion. Using sonographic guidance, sterile technique, and 1% lidocaine without epinephrine for local anesthesia, multiple core biopsies were obtained through the targeted area with a 14G spring loaded [employer] core biopsy device. There was real-time confirmation of appropriate needle passage. Sampling was documented. At the completion of tissue sampling, a single open coil shaped metallic clip was deposited at the biopsy site. There was no evidence of immediate complication. SPECIMEN: 3 well formed core samples were obtained. DIGITAL POST-PROCEDURE MAMMOGRAPHY: Breast density: The tissue contains scattered areas of fibroglandular density. BI-RADS version 5, category B. There are no new mammographic findings demonstrated. The postprocedure 2-view direct digital mammogram reveals satisfactory and accurate positioning of the biopsy clip. No hematoma present. The patient tolerated the procedure well and, after assuring adequate hemostasis, was discharged in good condition after reviewing postbiopsy breast care instructions. Final pathology results are pending. MM/MM tomosynthesis diagnostic LT IMPRESSION: 1. No immediate complication from ultrasound-guided percutaneous biopsy left breast mass versus complicated cyst 2:00 axis, 12 cm from the nipple. This has features highly suggestive of a fibroadenoma or variant. 2. Ultrasound was used to localize and guide marker clip placement. 3. The 2-view direct digital postprocedure mammogram reveals accurate positioning of the biopsy clip. 4. Final pathology results are pending. A separate report with final recommendations will be issued once these results are made available. Electronically signed by: Nando Sullivan MD 01/10/2024 11:06 AM [facility]
[2024-01-10] MEDS: Sodium Bicarbonate 8.4% 50 MEQ/50 ML VIAL SUBCUT (10:56)
[2024-01-10] MEDS: Lidocaine HCl 1 % 20 ML VIAL 8 ML SUBCUT (10:57)
== END 2024-01-10 09:26 | disposition home or self-care (01) ==
LOC: HO.MAMMO 09:25
PROVIDERS: PCP Internal Medicine; Visit Provider Surgery
DX: N63.21 Unspecified lump in the left breast, upper outer quadrant (principal)
CPT/HCPCS: 19083; 77061; 77065; 88305; 99202; A4648; C1894; J2003

== ENCOUNTER → 2024-01-10 10:00 | Outpatient (BNV) | payer OTHER, SELFPAY | PROVIDERS: PCP Internal Medicine; Visit Provider Radiology Diagnostic Radiology | DX: D24.2 Benign neoplasm of left breast (principal) | CPT/HCPCS: 19083; 77061; 77065 ==

== ENCOUNTER 2024-01-11 08:58 | Outpatient (AMB) | payer OTHER, SELFPAY ==
[2024-01-11 09:03] VITALS: BP 134/79; PULSE 64; O2SAT 97; BMI 32.7
--- NOTE | 2024-01-11 09:03 | MHC.OFFVIS ---
Vital Signs 01/11/24 09:03 Height 5 ft 1 in Weight 173 lb BMI 32.7 BP 134/79 Blood Pressure Location Rt brachial Position Sitting Pulse 64 Pulse Source Pulse Oximeter Pulse Oximetry (%) 97 Oxygen Delivery Method Room Air Intake Visit Reasons: s/p Left Dx GNB Allergies oxycodone [OXYCODONE] Allergy (Intermediate, Verified 01/11/24 09:04) RASH,SHAKES, shakiness, body shaking, tremors Medication List - Last Reconciled 01/11/24 by Eva Barrera albuterol sulfate 90 mcg/actuation 2 puffs inhalation Q6H PRN 30 days amlodipine 5 mg PO DAILY blood pressure monitor As directed diclofenac sodium 1% (Voltaren Arthritis Pain) 4 grams topical QID PRN Lactobacillus rhamnosus GG (Culturelle) 1 cap PO DAILY levothyroxine 300 mcg PO DAILY@0600 lisinopril 40 mg PO DAILY meclizine 25 mg PO TID PRN medroxyprogesterone 10 mg PO DAILY rizatriptan 10 mg PO DAILY PRN sucralfate 10 mL PO BID HPI Comments Details: Alicia presents back to the office today for follow-up left knee pain, one-week status post left diagnostic genicular nerve block. Pain today is rated as a 4/10 She reports 90% pain relief for 8 hours after the diagnostic injection with no untoward effects Was evaluated by Orthopedics recently and has a follow-up scheduled this Tuesday to discuss surgical intervention for continued meniscal tear Plan to follow up in our office after meeting with orthopedics Past Procedures: 01/04/24 left diagnostic genicular nerve block: 90% relief for 8 hours 09/22/23 Platelet Rich Plasma Injection: 25% relief 03/09/23 left saphenous nerve sprint: Temporary relief 30% 01/24/23 left diagnostic femoral nerve block: 100% relief for 8 hours Initial visit: Alicia is a very pleasant 47-year-old female who presents to the office today for evaluation and management of her left knee pain. Patient reports that she has been suffering with this pain since April 2021. Prior to this she had injured her knee at work and underwent left knee arthroscopic surgery. She states some pain improvement after surgery but there is some pain laterally that persists. She reports pain is worse with movement and area is tender to palpation. Pain today is rated as a 5/10, constant throughout the day. She has completed physical therapy for his pain that helped some, she continues with home exercise program but the pain does not improve. Currently she is using only topical gel cream for the pain. She has tried Tylenol and Motrin in the past without any improvement. In terms of muscle damage condition is described as aching and throbbing. Pain is negatively impacting patient's intermittent left, general activity, normal work, recreational activities and walking. Patient is also suffering with osteoarthritis of the right knee and new injury to the right knee. She is currently being treated by Orthopedics. She underwent cortisone injection about 4 weeks ago and is scheduled to start physical therapy for her right knee later today. [facility] Medical History Dysphagia Bile salt-induced diarrhea Hypothyroid Complex ovarian cyst Nephrolithiasis Meniscus degeneration Obesity Osteoarthritis of right patellofemoral joint Headache Left knee pain History of thyroid cancer Annual physical exam Pre-op examination Malpositioned IUD Hydronephrosis Fatty liver Morbid obesity Gastroenteritis Bilateral ovarian cysts Memory deficit Anserine bursitis Dawson angioma Shoulder pain, left Elevated LFTs Impaired fasting glucose Postsurgical hypothyroidism Benign essential hypertension Pericardial effusion Hypercholesterolemia Vitamin D deficiency 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 Family history of von Willebrand disease Patellar fracture Closed right ankle fracture Lumbar disc herniation History of renal calculi Vertigo Migraine Asthma Surgical History S/P laparoscopic sleeve gastrectomy Hx of laparoscopic partial gastrectomy Postoperative stitch abscess Postop check Sebaceous cyst H/O colonoscopy S/P removal of left ovary Hx of arthroscopy of left knee S/P left knee arthroscopy Hx of tubal ligation History of pubovaginal sling Hx of cystoscopy History of ankle surgery History of cholecystectomy History of bladder surgery History of thyroid surgery History of back surgery History of section Family History Daughter Von Willebrand disease Maternal Grandmother Family history of bladder cancer Family history of breast cancer Sister Family history of breast cancer Maternal Grandfather Family history of lung cancer Other Asthma Diabetes Emphysema of lung Social History Household Members: Family Housing: House Are you a primary child care leader to a significant other at home: No Do you presently have visiting nurse or other home services: No Alcohol intake: never Comment: medicated, see MAR Patient Tobacco Use Status: Never used Tobacco e-Cigarette/Vaping Use: Never Used Second Hand Smoke Exposure: No service: No Current occupational status: employed 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 Cognitive needs: No Hearing needs: No Vision needs: No Female Reproductive History Menstrual Age of Menarche: 14 Review of Systems Const All systems reviewed & are unremarkable except as noted in HPI and below Physical Exam Vital Signs: Last Vital Signs Pulse 64 01/11/24 09:03 BP 134/79 01/11/24 09:03 Pulse Ox 97 01/11/24 09:03 Oxygen Delivery Method Room Air 01/11/24 09:03 BMI result Body Mass Index 32.7 General: awake, alert, oriented. Answers questions appropriately. Fully engaged in examination. Skin: warm, dry, intact HEENT: Normocephalic. Hearing intact. Cardiac: External chest normal in appearance. Respiratory: No cough, audible wheezing or stridor. Abdomen: without gross distension. MS: No obvious swelling or deformities. Able to transition from sit to stand unassisted. Neurological: Oriented to person, place, time and situation. Thought process intact. Psychiatric: Appropriate mood and affect. Good judgment and insight. Assessment & Plan Assessment & Plan (1) S/P left knee arthroscopy: Comment: left knee arthroscopy with medial and lateral partial meniscectomy and chondroplasty 05/05/2022 NE Code(s): Z98.890 - Other specified postprocedural states Category: Surgical (2) Left knee pain: Code(s): M25.562 - Pain in left knee Category: Medical Qualifiers: Chronicity: chronic Qualified Code(s): M25.562 - Pain in left knee; G89.29 - Other chronic pain (3) Meniscus degeneration: Code(s): M23.309 - Other meniscus derangements, unspecified meniscus, unspecified knee Category: Medical Qualifiers: Laterality: left Qualified Code(s): M23.307 - Other meniscus derangements, unspecified meniscus, left knee Plan Alicia presents back to the office today for follow up left knee pain, one-week status post left diagnostic genicular nerve block. 90% pain relief for 8 hours after the diagnostic injection was done untoward effects Patient will follow up with Orthopedics this week as planned. If no pending surgery she will contact our office to schedule left genicular RFA Patient has exhausted conservative therapy including prescription medications, peripheral nerve stimulation, nonsteroidal anti-inflammatory medication, PRP, Tylenol, physical therapy and home exercise program. All questions and concerns were answered, patient agrees with the plan. Follow-up after after orthopedic evaluation, sooner if needed. Coding Level of Care Code Est Pt Level 3 (36360) Complex EM visit Add On G2211 Diagnoses S/P left knee arthroscopy Z98.890 Chronic pain of left knee M25.562; G89.29 Chronicity: chronic Degeneration of meniscus of left knee M23.307 Laterality: left
== END 2024-01-11 09:08 | disposition home or self-care (01) ==
PROVIDERS: PCP Internal Medicine; Visit Provider Registered Nurse Emergency
DX: Z98.890 Other specified postprocedural states (principal); M25.562 Pain in left knee; G89.29 Other chronic pain; M23.307 Other meniscus derangements, unspecified meniscus, left knee
CPT/HCPCS: 99213; G2211

== ENCOUNTER → 2024-01-11 08:58 | Outpatient (BNVA) | payer OTHER, SELFPAY | PROVIDERS: PCP Internal Medicine; Visit Provider Registered Nurse Emergency | DX: M25.562 Pain in left knee (principal); M23.307 Other meniscus derangements, unspecified meniscus, left knee; G89.29 Other chronic pain; Z98.890 Other specified postprocedural states | CPT/HCPCS: 99212 ==

== ENCOUNTER 2024-01-13 10:04 | Outpatient (AMB) | payer OTHER, SELFPAY ==
[2024-01-13 10:07] VITALS: BMI 32.7
--- NOTE | 2024-01-13 10:07 | A.OFFVIS_ITS ---
Vital Signs 01/13/24 10:07 Height 5 ft 1 in Weight 173 lb BMI 32.7 Intake Visit Reasons: OV- Left knee follow up , 05/05/22 NE Intake Note: Alicia is a 48 year old female who presents today for a follow up for her left knee 05/05/23. Three way nerve block on 01/04/24 with Pain Management. Patient reports nerve block last for about 8 hours, stating nothing has helped with her pain. She would like to discuss if surgery is needed. Allergies oxycodone [OXYCODONE] Allergy (Intermediate, Verified 01/13/24 10:07) RASH,SHAKES, shakiness, body shaking, tremors HPI HPI OV- Left knee follow up , 05/05/22 NE: Details: Alicia is a 48 year old female who presents today for a follow up for her left knee 05/05/23. Three way nerve block on 01/04/24 with Pain Management. Patient reports nerve block last for about 8 hours, stating nothing has helped with her pain. She would like to discuss if surgery is needed. She states she had sharp pain prior to surgery which was alleviated slightly with surgery but she has continued to have a lot of discomfort and been unable to return to work. She describes clicking in her knee and swelling and pain at the end of the day and difficulty with stairs. She has had multiple treatments with pain m anagement including PRP which she thinks may have helped a little and an ultrasound suggested that she had a recurrent tear of her meniscus. [facility] Medical History (Updated 01/11/24 @ 21:12 by Tamela Pelaez MD) Dysphagia Bile salt-induced diarrhea Hypothyroid Complex ovarian cyst Nephrolithiasis Meniscus degeneration Obesity Osteoarthritis of right patellofemoral joint Headache Left knee pain History of thyroid cancer Annual physical exam Pre-op examination Malpositioned IUD Hydronephrosis Fatty liver Morbid obesity Gastroenteritis Bilateral ovarian cysts Memory deficit Anserine bursitis Dawson angioma Shoulder pain, left Elevated LFTs Impaired fasting glucose Postsurgical hypothyroidism Benign essential hypertension Pericardial effusion Hypercholesterolemia Vitamin D deficiency 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 Family history of von Willebrand disease Patellar fracture Closed right ankle fracture Lumbar disc herniation History of renal calculi Vertigo Migraine Asthma Surgical History (Updated 01/13/24 @ 11:06 by Ed Butt MD) S/P laparoscopic sleeve gastrectomy Hx of laparoscopic partial gastrectomy Postoperative stitch abscess Postop check Sebaceous cyst H/O colonoscopy S/P removal of left ovary Hx of arthroscopy of left knee S/P left knee arthroscopy Hx of tubal ligation History of pubovaginal sling Hx of cystoscopy History of ankle surgery History of cholecystectomy History of bladder surgery History of thyroid surgery History of back surgery History of section Family History Daughter Von Willebrand disease Maternal Grandmother Family history of bladder cancer Family history of breast cancer Sister Family history of breast cancer Maternal Grandfather Family history of lung cancer Other Asthma Diabetes Emphysema of lung Social History Household Members: Family Housing: House Are you a primary medicare insurance specialist to a significant other at home: No Do you presently have visiting nurse or other home services: No Alcohol intake: never Comment: medicated, see MAR Patient Tobacco Use Status: Never used Tobacco e-Cigarette/Vaping Use: Never Used Second Hand Smoke Exposure: No service: No Current occupational status: employed 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 Cognitive needs: No Hearing needs: No Vision needs: No Female Reproductive History Menstrual Age of Menarche: 14 Physical Exam Vital Signs: BMI result Body Mass Index 32.7 Extrem Other: Left knee with pain on terminal flexion was having very mild Isaac's and tenderness to palpation medial joint line with a trace effusion. She has some patellofemoral crepitus and no lateral pain. Assessment & Plan Assessment & Plan (1) Hx of arthroscopy of left knee: Comment: 04/2022 Code(s): Z98.890 - Other specified postprocedural states Category: Surgical Plan: Alicia is status post left knee arthroscopy for meniscal tear who has ongoing pain at the end the day and she is unable to return to work. She has not been improving significantly with injections and I recommend a repeat MRI. I discussed this with him. She is amenable to the plan. Orders: Orders MR knee LT wo con Today Z98.890 - Other specified postprocedural states Coding Level of Care Code Est Pt Level 4 (78782) Diagnoses Hx of arthroscopy of left knee Z98.890
== END 2024-01-13 10:54 | disposition home or self-care (01) ==
PROVIDERS: PCP Internal Medicine; Visit Provider Orthopaedic Surgery
DX: M25.562 Pain in left knee (principal); S83.242A Other tear of medial meniscus, current injury, left knee, initial encounter
CPT/HCPCS: 99214

== ENCOUNTER → 2024-01-13 10:04 | Outpatient (BNVA) | payer OTHER, SELFPAY | PROVIDERS: PCP Internal Medicine; Visit Provider Orthopaedic Surgery | DX: Z47.89 Encounter for other orthopedic aftercare (principal) | CPT/HCPCS: 99212 ==

== ENCOUNTER 2024-01-19 08:30 | Outpatient (AMB) | payer OTHER, SELFPAY ==
--- NOTE | 2024-01-19 08:26 | A.OFFVIS_ITS ---
VS Expanded 01/19/24 08:30 Height 5 ft 1 in Weight 170 lb 4 oz BMI 32.2 Body Fat % 40.5 Body Fat Mass 69 Fat Free Mass 101.4 Visceral Fat Rating 15 Body Water % 40.8 Muscle Mass/Score 95.2 Basal Metabolic Rate/Score 1,370 Intake Visit Reasons: (TV) PO LSG 12/07/23 Allergies oxycodone [OXYCODONE] Allergy (Intermediate, Verified 01/13/24 10:07) RASH,SHAKES, shakiness, body shaking, tremors HPI Comments Details: This?a?48?yo female who is s/p LSG without hiatal hernia repair on?12/07/2023. Presents for 1 month post op visit. Weight today is 170.4 pounds, with a BMI of 32.2. There has been a 54 pound weight loss,(initial weight 224.4 pounds) since starting the program on 08/15/2023 reflecting a 24 % total body weight loss and a weight loss of 40.1 pounds since surgery (operative weight 210.5 pounds) reflecting a 19 % TBWL since surgery. No complaints of nausea, emesis, abdominal pain or reflux. Reports infrequent but normal bowel movements every 1- 2 days. Had not taken any BP med in 8 weeks Present meal plan includes: Premier protein, 1 scoop in 8 oz almond milk at 8-10, 11-1, 2-4 pure protein bar 5-8 Drinking 40-60 oz water ? Exercise routine includes: stationary bike, treadmill, stairmaster 5 x per week, [address] [facility] Medical History (Updated 01/11/24 @ 21:12 by Tamela Pelaez MD) Dysphagia Bile salt-induced diarrhea Hypothyroid Complex ovarian cyst Nephrolithiasis Meniscus degeneration Obesity Osteoarthritis of right patellofemoral joint Headache Left knee pain History of thyroid cancer Annual physical exam Pre-op examination Malpositioned IUD Hydronephrosis Fatty liver Morbid obesity Gastroenteritis Bilateral ovarian cysts Memory deficit Anserine bursitis Dawson angioma Shoulder pain, left Elevated LFTs Impaired fasting glucose Postsurgical hypothyroidism Benign essential hypertension Pericardial effusion Hypercholesterolemia Vitamin D deficiency 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 Family history of von Willebrand disease Patellar fracture Closed right ankle fracture Lumbar disc herniation History of renal calculi Vertigo Migraine Asthma Surgical History (Updated 01/13/24 @ 11:06 by Ed Butt MD) S/P laparoscopic sleeve gastrectomy Hx of laparoscopic partial gastrectomy Postoperative stitch abscess Postop check Sebaceous cyst H/O colonoscopy S/P removal of left ovary Hx of arthroscopy of left knee S/P left knee arthroscopy Hx of tubal ligation History of pubovaginal sling Hx of cystoscopy History of ankle surgery History of cholecystectomy History of bladder surgery History of thyroid surgery History of back surgery History of section Family History Daughter Von Willebrand disease Maternal Grandmother Family history of bladder cancer Family history of breast cancer Sister Family history of breast cancer Maternal Grandfather Family history of lung cancer Other Asthma Diabetes Emphysema of lung Social History Household Members: Family Housing: House Are you a primary home care specialist to a significant other at home: No Do you presently have visiting nurse or other home services: No Alcohol intake: never Comment: medicated, see MAR Patient Tobacco Use Status: Never used Tobacco e-Cigarette/Vaping Use: Never Used Second Hand Smoke Exposure: No service: No Current occupational status: employed 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 Cognitive needs: No Hearing needs: No Vision needs: No Female Reproductive History Menstrual Age of Menarche: 14 Telehealth Telehealth Telehealth Platform: Telephone Location of provider rendering services: practice address Location of patient: address on file Patient Identification confirmed using: Name, : Yes Telehealth method: voice only Patient verbally consented to treatment: Yes Patient verbally consented to billing insurance company: Yes Patient informed of any privacy concerns related to visit: Yes Minutes spent on Phone/Video with Pt.: 15 Assessment & Plan Assessment & Plan (1) S/P laparoscopic sleeve gastrectomy: Comment: Dr. Malagon 12/07/2023 esophagogastroscopy, laparoscopic lysis of adhesions, laparoscopic sleeve gastrectomy and laparoscopic gastropexy Code(s): Z98.84 - Bariatric surgery status Category: Surgical Plan: Patient is following the meal plan. She is doing well and exercising regularly. Encouraged to continue to exercise and track her calories. Encouraged to send weight is weekly and text with any questions or concerns. Encouraged to start multivitamin and calcium plus D. Return to clinic 3-4 weeks.
[2024-01-19 08:30] VITALS: BMI 32.2
== END 2024-01-19 08:51 | disposition home or self-care (01) ==
LOC: HO.HBS 08:41
PROVIDERS: PCP Internal Medicine; Visit Provider Physician Assistant Surgical
DX: Z98.84 Bariatric surgery status (principal)
CPT/HCPCS: 99024

== ENCOUNTER → 2024-01-19 08:30 | Outpatient (BNVA) | payer OTHER, SELFPAY | PROVIDERS: PCP Internal Medicine; Visit Provider Physician Assistant Surgical | DX: Z98.84 Bariatric surgery status (principal) | CPT/HCPCS: 99212 ==

== ENCOUNTER 2024-01-19 10:51 | Emergency (ER) | payer OTHER, SELFPAY ==
[2024-01-19 11:12] VITALS: BP 155/89; PULSE 84; RESP 18; TEMP 36.7; O2SAT 97; BMI 32.1
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
[2024-01-19 14:13] VITALS: BP 156/92; PULSE 69; RESP 16; TEMP 36.7; O2SAT 100
[2024-01-19 14:33] VITALS: BP 156/92; PULSE 69; RESP 16; TEMP 36.6; O2SAT 100
[2024-01-19 15:11] LABS: CT PCR NOT DETECTED (Not Detect.); NG PCR NOT DETECTED (Not Detect.)
[2024-01-20 08:23] LABS: Syphilis Screen Nonreactive (Nonreactive)
[2024-01-20 08:27] LABS: Hepatitis A Antibody IgM 0.18 Index (0-0.79); ~Hepatitis A Antibody IgM Nonreactive (Nonreactive)
[2024-01-20 08:51] LABS: HBS Num1 0.39 mIU/mL (0-7.99); HBc Num1 0.14 S/CO (0.00-0.79); HBsAGNum1 0.46 S/CO (0.00-0.99); HIV AB/AG Nonreactive (Nonreactive); HIV Num 1 0.06 S/CO (0.00-0.99); Hepatitis B Core Antibody Nonreactive (Nonreactive); Hepatitis B Surface Antigen Negative (Negative); ~HepC Num1 0.13 S/CO (0.00-0.79); ~Hepatitis B Surface Antibody NONREACTIVE (Nonreactive); ~Hepatitis C Antibody Nonreactive (Nonreactive)
== END 2024-01-19 14:33 | disposition home or self-care (01) ==
PROVIDERS: Physician Assistant; Emergency Provider Emergency Medicine; PCP Internal Medicine
DX: Z20.2 Contact with and (suspected) exposure to infections with a predominantly sexual mode of transmission (principal); Z79.899 Other long term (current) drug therapy
CPT/HCPCS: 36415; 86704; 86706; 86709; 86780; 86803; 87340; 87389; 87491; 87591; 99283

== ENCOUNTER 2024-02-17 07:54 | Outpatient (REF) | payer OTHER, SELFPAY ==
--- NOTE | ~2024-02-17 | MR_ITS ---
EXAMINATION: MR KNEE WITHOUT CONTRAST, LEFT CLINICAL INFORMATION: Left knee pain and swelling. Surgery in April of 2022. Question meniscal tear. COMPARISON: Left knee radiographs dated 03/10/2022. Left knee MRI dated 03/10/2022. TECHNIQUE: MRI of the knee without contrast was performed using routine sequences on a high-field scanner. FINDINGS: MENISCI: Medial Meniscus: Significant interval attenuation of the meniscal body, extending through the posterior horn and root, likely representing a combination of meniscectomy and degenerative tearing. Correlation with surgical history is recommended. Inner margin blunting/fraying of the anterior horn, new when compared to the prior examination. Lateral Meniscus: Intact LIGAMENTS: Cruciate: Intact Collateral: Intact EXTENSOR MECHANISM: Superior patellar enthesophytes. Intact quadriceps and patellar tendons. Normal patellofemoral alignment. ARTICULAR CARTILAGE/BONE: Patellofemoral Compartment: Focal articular cartilage loss at the patellar median ridge, measuring up to 1.0 cm in ML dimension. Trochlear signal heterogeneity. Tiny marginal osteophytes. Findings are slightly progressed. Medial Compartment: Articular cartilage thinning and signal heterogeneity with marginal osteophytes, slightly progressed. Lateral Compartment: Mild articular cartilage signal heterogeneity with marginal osteophytes, slightly progressed. JOINT FLUID AND BURSAE: Small joint effusion and trace Calderon's cyst. MR/MR knee LT wo con IMPRESSION: 1. Significant attenuation of the medial meniscal body, extending through the posterior horn and root, likely representing a combination of meniscectomy and degenerative tearing. Correlation with surgical history is recommended. Inner margin blunting/fraying of the anterior horn, new when compared to the prior examination. 2. Mild tricompartmental osteoarthritis, slightly progressed. Small joint effusion and trace Calderon's cyst. Electronically signed by: Malachi Paige MD 03/03/2024 09:14 PM [facility] Workstation: [id number] - [employer].
== END 2024-02-17 07:55 | disposition home or self-care (01) ==
LOC: HO.MRI 07:54
PROVIDERS: PCP Internal Medicine; Visit Provider Orthopaedic Surgery
DX: Z98.890 Other specified postprocedural states (principal)
CPT/HCPCS: 73721

== ENCOUNTER 2024-02-20 13:08 | Outpatient (AMB) | payer OTHER, SELFPAY ==
--- NOTE | 2024-02-20 08:09 | MHC.OFFVISWM ---
VS Expanded 02/20/24 08:10 Height 5 ft 1 in Weight 153 lb 2 oz BMI 28.9 Body Fat % 35.5 Body Fat Mass 54.3 Fat Free Mass 98.8 Visceral Fat Rating 11 Body Water % 44.3 Body Water Mass 67.8 Muscle Mass/Score 92.8 Basal Metabolic Rate/Score 1,345 Intake Visit Reasons: (TV) PO LSG 12/07/23 Forcer Maker Required: No Allergies oxycodone [OXYCODONE] Allergy (Intermediate, Verified 01/19/24 11:14) RASH,SHAKES, shakiness, body shaking, tremors Medication List - Last Reconciled 02/20/24 by PEGGY Mariano albuterol sulfate 90 mcg/actuation 2 puffs inhalation Q6H PRN 30 days blood pressure monitor As directed diclofenac sodium 1% (Voltaren Arthritis Pain) 4 grams topical QID PRN Lactobacillus rhamnosus GG (Culturelle) 1 cap PO DAILY levothyroxine 300 mcg PO DAILY@0600 meclizine 25 mg PO TID PRN medroxyprogesterone 10 mg PO DAILY rizatriptan 10 mg PO DAILY PRN sucralfate 10 mL PO BID HPI Comments Details: This?a?48?yo female who is s/p LSG without hiatal hernia repair on?12/07/2023. Presents for 2 month post op visit. Weight today is 153.2 pounds, with a BMI of 28.9. There has been a 71.2 pound weight loss,(initial weight 224.4 pounds) since starting the program on 08/15/2023 reflecting a 31.7 % total body weight loss and a weight loss of 57.3 pounds since surgery (operative weight 210.5 pounds) reflecting a 27.2 % TBWL since surgery. No complaints of nausea, emesis, abdominal pain or reflux. Reports infrequent but normal bowel movements every 1-2 days. Had not taken any BP meds since surgery. Present meal plan includes: celebrate 4 in 1, 1 scoop in 8 oz almond milk at 8-10, 11-1 pure protein bar 2-3 4 pm meal w 3 forks protein and 3 forks veg Celebrate 4 in 1, 1 scoop 6-8 Drinking 40-60 oz water ? Exercise routine includes: gym treadmill, 5 x per week, 100 [address]acey stationary bike at home, 7 days per week, 300 [address]acey [facility] Medical History (Updated 01/20/24 @ 00:00 by Annmarie Melara) Dysphagia Bile salt-induced diarrhea Hypothyroid Complex ovarian cyst Nephrolithiasis Meniscus degeneration Obesity Osteoarthritis of right patellofemoral joint Headache Left knee pain History of thyroid cancer Annual physical exam Pre-op examination Malpositioned IUD Hydronephrosis Fatty liver Morbid obesity Gastroenteritis Bilateral ovarian cysts Memory deficit Anserine bursitis Dawson angioma Shoulder pain, left Elevated LFTs Impaired fasting glucose Postsurgical hypothyroidism Benign essential hypertension Pericardial effusion Hypercholesterolemia Vitamin D deficiency 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 Family history of von Willebrand disease Patellar fracture Closed right ankle fracture Lumbar disc herniation History of renal calculi Vertigo Migraine Asthma Surgical History (Updated 02/20/24 @ 13:23 by PEGGY Mariano) S/P laparoscopic sleeve gastrectomy Hx of laparoscopic partial gastrectomy Postoperative stitch abscess Postop check Sebaceous cyst H/O colonoscopy S/P removal of left ovary Hx of arthroscopy of left knee S/P left knee arthroscopy Hx of tubal ligation History of pubovaginal sling Hx of cystoscopy History of ankle surgery History of cholecystectomy History of bladder surgery History of thyroid surgery History of back surgery History of section Family History Daughter Von Willebrand disease Maternal Grandmother Family history of bladder cancer Family history of breast cancer Sister Family history of breast cancer Maternal Grandfather Family history of lung cancer Other Asthma Diabetes Emphysema of lung Social History Household Members: Family Housing: House Are you a primary restorative care technician to a significant other at home: No Do you presently have visiting nurse or other home services: No Alcohol intake: never Comment: medicated, see MAR Patient Tobacco Use Status: Never used Tobacco e-Cigarette/Vaping Use: Never Used Second Hand Smoke Exposure: No service: No Current occupational status: employed 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 Cognitive needs: No Hearing needs: No Vision needs: No Female Reproductive History Menstrual Age of Menarche: 14 Physical Exam Vital Signs: BMI result Body Mass Index 28.9 Telehealth Telehealth Telehealth Platform: Telephone Location of provider rendering services: practice address Location of patient: address on file Patient Identification confirmed using: Name, : Yes Telehealth method: voice only Patient verbally consented to treatment: Yes Patient verbally consented to billing insurance company: Yes Patient informed of any privacy concerns related to visit: Yes Minutes spent on Phone/Video with Pt.: 12 Assessment & Plan Assessment & Plan (1) S/P laparoscopic sleeve gastrectomy: Code(s): Z98.84 - Bariatric surgery status Category: Surgical Plan: She is following the meal plan as instructed by Dr. Malagon. Making good progress with her weight loss and exercise plan. Encouraged to continue to send weight measurements weekly and text with any questions or concerns. Return to clinic 3-4 weeks.
[2024-02-20 08:10] VITALS: BMI 28.9
== END 2024-02-20 13:24 | disposition home or self-care (01) ==
LOC: HO.HBS 13:08
PROVIDERS: PCP Internal Medicine; Visit Provider Physician Assistant Surgical
DX: Z98.84 Bariatric surgery status (principal)
CPT/HCPCS: 99024

== ENCOUNTER → 2024-02-20 13:08 | Outpatient (BNVA) | payer OTHER, SELFPAY | PROVIDERS: PCP Internal Medicine; Visit Provider Physician Assistant Surgical | DX: Z71.3 Dietary counseling and surveillance (principal); Z98.84 Bariatric surgery status | CPT/HCPCS: 99212 ==

== ENCOUNTER 2024-03-20 09:00 | Outpatient (AMB) | payer OTHER, SELFPAY ==
--- NOTE | 2024-03-20 09:04 | A.OFFVIS_ITS ---
VS Expanded 03/20/24 09:05 Height 5 ft 1 in Weight 140 lb BMI 26.4 Body Fat % 31.7 Fat Free Mass 95.6 Visceral Fat Rating 9 Body Water % 46.9 Muscle Mass/Score 89.8 Basal Metabolic Rate/Score 1,306 Intake Visit Reasons: (TV) PO LSG 12/07/23 [facility] Required: No Allergies oxycodone [OXYCODONE] Allergy (Intermediate, Verified 01/19/24 11:14) RASH,SHAKES, shakiness, body shaking, tremors Medication List - Last Reconciled 03/20/24 by PEGGY Mariano albuterol sulfate 90 mcg/actuation 2 puffs inhalation Q6H PRN 30 days blood pressure monitor As directed diclofenac sodium 1% (Voltaren Arthritis Pain) 4 grams topical QID PRN Lactobacillus rhamnosus GG (Culturelle) 1 cap PO DAILY levothyroxine 300 mcg PO DAILY@0600 meclizine 25 mg PO TID PRN medroxyprogesterone 10 mg PO DAILY rizatriptan 10 mg PO DAILY PRN HPI Comments Details: This?a?48?yo female who is s/p LSG without hiatal hernia repair on?12/07/2023. Presents for 3 month post op visit. Weight today is 140 pounds, with a BMI of 26.5. There has been a 84.4 pound weight loss,(initial weight 224.4 pounds) since starting the program on 08/15/2023 reflecting a 37.6 % total body weight loss and a weight loss of 70.5 pounds since surgery (operative weight 210.5 pounds) reflecting a 33.4 % TBWL since surgery. No complaints of nausea, emesis, abdominal pain or reflux. Reports infrequent but normal bowel movements every 1-2 days. She is doing well and reports feeling alonso quicker with the protein shake. Present meal plan includes: celebrate 4 in 1, 1 scoop in 8 oz almond milk at 8-10, 11-1 pure protein bar 2-3 4 pm meal w 3 forks protein and 3 forks veg Celebrate 4 in 1, 1 scoop 6-8 Drinking 32-48 oz water ? Exercise routine includes: gym treadmill, stationary bike at home 7 days per week 300-400 stacey per day [facility] Medical History (Updated 10/25/24 @ 00:00 by Annmarie Melara) Dysphagia Bile salt-induced diarrhea Hypothyroid Complex ovarian cyst Nephrolithiasis Meniscus degeneration Obesity Osteoarthritis of right patellofemoral joint Headache Left knee pain History of thyroid cancer Annual physical exam Pre-op examination Malpositioned IUD Hydronephrosis Fatty liver Morbid obesity Gastroenteritis Bilateral ovarian cysts Memory deficit Anserine bursitis Dawson angioma Shoulder pain, left Elevated LFTs Impaired fasting glucose Postsurgical hypothyroidism Benign essential hypertension Pericardial effusion Hypercholesterolemia Vitamin D deficiency 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 Family history of von Willebrand disease Patellar fracture Closed right ankle fracture Lumbar disc herniation History of renal calculi Vertigo Migraine Asthma Surgical History (Updated 02/20/24 @ 13:23 by PEGGY Mariano) S/P laparoscopic sleeve gastrectomy Hx of laparoscopic partial gastrectomy Postoperative stitch abscess Postop check Sebaceous cyst H/O colonoscopy S/P removal of left ovary Hx of arthroscopy of left knee S/P left knee arthroscopy Hx of tubal ligation History of pubovaginal sling Hx of cystoscopy History of ankle surgery History of cholecystectomy History of bladder surgery History of thyroid surgery History of back surgery History of section Family History Daughter Von Willebrand disease Maternal Grandmother Family history of bladder cancer Family history of breast cancer Sister Family history of breast cancer Maternal Grandfather Family history of lung cancer Other Asthma Diabetes Emphysema of lung Social History Household Members: Family Housing: House Are you a primary floor care technician to a significant other at home: No Do you presently have visiting nurse or other home services: No Alcohol intake: never Comment: medicated, see MAR Patient Tobacco Use Status: Never used Tobacco e-Cigarette/Vaping Use: Never Used Second Hand Smoke Exposure: No service: No Current occupational status: employed 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 Cognitive needs: No Hearing needs: No Vision needs: No Female Reproductive History Menstrual Age of Menarche: 14 Telehealth Telehealth Telehealth Platform: Telephone Location of provider rendering services: practice address Location of patient: address on file Patient Identification confirmed using: Name, : Yes Telehealth method: voice only Patient verbally consented to treatment: Yes Patient verbally consented to billing insurance company: Yes Patient informed of any privacy concerns related to visit: Yes Minutes spent on Phone/Video with Pt.: 15 Assessment & Plan Assessment & Plan (1) S/P laparoscopic sleeve gastrectomy: Code(s): Z98.84 - Bariatric surgery status Category: Surgical Plan: Patient is very happy with her meal plan. She is doing excellent and making great progress. She will continue doing what she is doing and returns to clinic 1 month encouraged to continue to send weight is weekly and text with any questions or concerns.
[2024-03-20 09:05] VITALS: BMI 26.4
== END 2024-03-20 09:28 | disposition home or self-care (01) ==
LOC: HO.HBS 09:15
PROVIDERS: PCP Internal Medicine; Visit Provider Physician Assistant Surgical
DX: E66.3 Overweight (principal); Z68.26 Body mass index [BMI] 26.0-26.9, adult; Z90.3 Acquired absence of stomach [part of]; Z98.84 Bariatric surgery status
CPT/HCPCS: 99213

== ENCOUNTER → 2024-03-20 09:00 | Outpatient (BNVA) | payer OTHER, SELFPAY | PROVIDERS: PCP Internal Medicine; Visit Provider Physician Assistant Surgical | DX: E66.9 Obesity, unspecified (principal); Z68.26 Body mass index [BMI] 26.0-26.9, adult; Z90.3 Acquired absence of stomach [part of] | CPT/HCPCS: 99212 ==

== ENCOUNTER 2024-03-26 09:50 | Outpatient (REF) | payer OTHER, SELFPAY | END 2024-03-26 09:51 | disposition home or self-care (01) | LOC: HO.US 09:50 | PROVIDERS: PCP Internal Medicine; Visit Provider Urology | DX: N20.0 Calculus of kidney (principal) | CPT/HCPCS: 76775 ==

== ENCOUNTER → 2024-03-26 09:51 | Outpatient (BNV) | payer OTHER, SELFPAY | PROVIDERS: PCP Internal Medicine; Visit Provider Radiology Diagnostic Radiology | DX: N20.0 Calculus of kidney (principal) | CPT/HCPCS: 76775 ==

== ENCOUNTER 2024-04-06 11:10 | Outpatient (AMB) | payer OTHER, SELFPAY ==
--- NOTE | 2024-04-06 11:23 | MHC.OFFVIS ---
Intake Visit Reasons: OV- Left knee MRI review Intake Note: Alicia is a 49 year old female who presents today for a Left Knee MRI Review. Left knee 05/05/23. Three way nerve block on 01/04/24 with Pain Management. IMPRESSION: 1. Significant attenuation of the medial meniscal body, extending through the posterior horn and root, likely representing a combination of meniscectomy and degenerative tearing. Correlation with surgical history is recommended. Inner margin blunting/fraying of the anterior horn, new when compared to the prior examination. 2. Mild tricompartmental osteoarthritis, slightly progressed. Small joint effusion and trace Calderon's cyst. Allergies oxycodone [OXYCODONE] Allergy (Intermediate, Verified 01/19/24 11:14) RASH,SHAKES, shakiness, body shaking, tremors HPI HPI OV- Left knee MRI review: Details: Alicia comes in today for MRI review. She continues to have intermittent left knee pain. She states she has difficulty going up and down stairs and standing from a seated position. She feels she is unable to stand on her leg for a full work day. She initially had surgery almost 2 years ago in 2022 and has had a varied course with times of feeling like she is improving and then times where she has taken backward step. She has had visits with the pain management doctors as well. [facility] Medical History (Updated 01/20/24 @ 00:00 by Annmarie Melara) Dysphagia Bile salt-induced diarrhea Hypothyroid Complex ovarian cyst Nephrolithiasis Meniscus degeneration Obesity Osteoarthritis of right patellofemoral joint Headache Left knee pain History of thyroid cancer Annual physical exam Pre-op examination Malpositioned IUD Hydronephrosis Fatty liver Morbid obesity Gastroenteritis Bilateral ovarian cysts Memory deficit Anserine bursitis Dawson angioma Shoulder pain, left Elevated LFTs Impaired fasting glucose Postsurgical hypothyroidism Benign essential hypertension Pericardial effusion Hypercholesterolemia Vitamin D deficiency 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 Family history of von Willebrand disease Patellar fracture Closed right ankle fracture Lumbar disc herniation History of renal calculi Vertigo Migraine Asthma Surgical History (Updated 02/20/24 @ 13:23 by PEGGY Mariano) S/P laparoscopic sleeve gastrectomy Hx of laparoscopic partial gastrectomy Postoperative stitch abscess Postop check Sebaceous cyst H/O colonoscopy S/P removal of left ovary Hx of arthroscopy of left knee S/P left knee arthroscopy Hx of tubal ligation History of pubovaginal sling Hx of cystoscopy History of ankle surgery History of cholecystectomy History of bladder surgery History of thyroid surgery History of back surgery History of section Family History Daughter Von Willebrand disease Maternal Grandmother Family history of bladder cancer Family history of breast cancer Sister Family history of breast cancer Maternal Grandfather Family history of lung cancer Other Asthma Diabetes Emphysema of lung Social History (Reviewed 01/13/24 @ 10:22 by Rowan Torres [facility]) Household Members: Family Housing: House Are you a primary lpn care manager to a significant other at home: No Do you presently have visiting nurse or other home services: No Alcohol intake: never Comment: medicated, see MAR Patient Tobacco Use Status: Never used Tobacco e-Cigarette/Vaping Use: Never Used Second Hand Smoke Exposure: No service: No Current occupational status: employed 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 Cognitive needs: No Hearing needs: No Vision needs: No Female Reproductive History Menstrual Age of Menarche: 14 Physical Exam Extrem Other: On physical exam she currently has no effusion and there is no tenderness to palpation. She walks without antalgia and has 0-125 degrees of motion. Results Reviewed Results Reviewed: I personally reviewed relevant radiographs. 1. Significant attenuation of the medial meniscal body, extending through the posterior horn and root, likely representing a combination of meniscectomy and degenerative tearing. Correlation with surgical history is recommended. Inner margin blunting/fraying of the anterior horn, new when compared to the prior examination. 2. Mild tricompartmental osteoarthritis, slightly progressed. Small joint effusion and trace Calderon's cyst. Assessment & Plan Assessment & Plan (1) Hx of arthroscopy of left knee: Comment: 04/2022 Code(s): Z98.890 - Other specified postprocedural states Category: Surgical Plan: Alicia is a 49-year-old woman who had a medial meniscus tear and subsequent arthroscopy in April of 2022. Intraoperatively she also had patellofemoral osteoarthritis that was moderate. She has not fully recovered from her injury. I do, however, think she has reached maximum medical improvement. She has had injections of steroid, viscosupplementation as well as PRP injections and continues to have intermittent pain. She does not feel that she is able to go back to work. When reviewing her physical exam and MRI I see evidence of moderate osteoarthritis with persistent dysfunction. I think she has reached maximum medical improvement. I do think she would benefit from hesitation to pain management for continued attempts at obtaining better pain control. She does not feel that she is able to work fully and as such I think she will require a disability rating. I discussed this with her. Coding Level of Care Code Est Pt Level 4 (32339) Diagnoses Hx of arthroscopy of left knee Z98.890
== END 2024-04-06 11:59 | disposition home or self-care (01) ==
PROVIDERS: PCP Internal Medicine; Visit Provider Orthopaedic Surgery
DX: S83.242D Other tear of medial meniscus, current injury, left knee, subsequent encounter (principal)
CPT/HCPCS: 99214

== ENCOUNTER → 2024-04-06 11:10 | Outpatient (BNVA) | payer OTHER, SELFPAY | PROVIDERS: PCP Internal Medicine; Visit Provider Orthopaedic Surgery | DX: Z98.890 Other specified postprocedural states (principal) | CPT/HCPCS: 99212 ==

== ENCOUNTER 2024-04-11 08:16 | Outpatient (AMB) | payer OTHER, SELFPAY ==
--- NOTE | 2024-04-11 08:18 | MHC.OFFVIS ---
Vital Signs 04/11/24 08:20 Height 5 ft 1 in Weight 130 lb BMI 24.6 BP 136/91 H Blood Pressure Location Lt brachial Position Sitting Respiration 16 Pulse 65 Pulse Source Pulse Oximeter Pulse Oximetry (%) 96 Oxygen Delivery Method Room Air Intake Visit Reasons: Follow Up (Pt Request) Allergies oxycodone [OXYCODONE] Allergy (Intermediate, Verified 04/11/24 08:21) RASH,SHAKES, shakiness, body shaking, tremors Medication List - Last Reconciled 04/11/24 by Samia Reyna LPN albuterol sulfate 90 mcg/actuation 2 puffs inhalation Q6H PRN 30 days blood pressure monitor As directed diclofenac sodium 1% (Voltaren Arthritis Pain) 4 grams topical QID PRN Lactobacillus rhamnosus GG (Culturelle) 1 cap PO DAILY levothyroxine 300 mcg PO DAILY@0600 meclizine 25 mg PO TID PRN medroxyprogesterone 10 mg PO DAILY pyridoxine (vitamin B6) 100 mg PO DAILY 90 days rizatriptan 10 mg PO DAILY PRN HPI Comments Details: Alicia presents back to the office today for follow-up left knee pain Since last visit she has been evaluated by Orthopedics, underwent repeat MRI. Orthopedics advised that there is no surgery warranted. They referred her back to our office. Previously underwent genicular diagnostic nerve block with 90% pain relief for 8 hours. She would like to proceed with genicular RFA. Also since last visit patient underwent gastric sleeve. She has lost over 100 lb. Despite this her knee pain persists. Prior: Alicia presents back to the office today for follow-up left knee pain, one-week status post left diagnostic genicular nerve block. Pain today is rated as a 4/10 She reports 90% pain relief for 8 hours after the diagnostic injection with no untoward effects Was evaluated by Orthopedics recently and has a follow-up scheduled this Tuesday to discuss surgical intervention for continued meniscal tear Plan to follow up in our office after meeting with orthopedics Past Procedures: 01/04/24 left diagnostic genicular nerve block: 90% relief for 8 hours 09/22/23 Platelet Rich Plasma Injection: 25% relief 03/09/23 left saphenous nerve sprint: Temporary relief 30% 01/24/23 left diagnostic femoral nerve block: 100% relief for 8 hours Initial visit: Alicia is a very pleasant 47-year-old female who presents to the office today for evaluation and management of her left knee pain. Patient reports that she has been suffering with this pain since April 2021. Prior to this she had injured her knee at work and underwent left knee arthroscopic surgery. She states some pain improvement after surgery but there is some pain laterally that persists. She reports pain is worse with movement and area is tender to palpation. Pain today is rated as a 5/10, constant throughout the day. She has completed physical therapy for his pain that helped some, she continues with home exercise program but the pain does not improve. Currently she is using only topical gel cream for the pain. She has tried Tylenol and Motrin in the past without any improvement. In terms of muscle damage condition is described as aching and throbbing. Pain is negatively impacting patient's intermittent left, general activity, normal work, recreational activities and walking. Patient is also suffering with osteoarthritis of the right knee and new injury to the right knee. She is currently being treated by Orthopedics. She underwent cortisone injection about 4 weeks ago and is scheduled to start physical therapy for her right knee later today. [facility] Medical History (Updated 01/20/24 @ 00:00 by Annmarie Melara) Dysphagia Bile salt-induced diarrhea Hypothyroid Complex ovarian cyst Nephrolithiasis Meniscus degeneration Obesity Osteoarthritis of right patellofemoral joint Headache Left knee pain History of thyroid cancer Annual physical exam Pre-op examination Malpositioned IUD Hydronephrosis Fatty liver Morbid obesity Gastroenteritis Bilateral ovarian cysts Memory deficit Anserine bursitis Dawson angioma Shoulder pain, left Elevated LFTs Impaired fasting glucose Postsurgical hypothyroidism Benign essential hypertension Pericardial effusion Hypercholesterolemia Vitamin D deficiency 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 Family history of von Willebrand disease Patellar fracture Closed right ankle fracture Lumbar disc herniation History of renal calculi Vertigo Migraine Asthma Surgical History (Updated 02/20/24 @ 13:23 by PEGGY Mariano) S/P laparoscopic sleeve gastrectomy Hx of laparoscopic partial gastrectomy Postoperative stitch abscess Postop check Sebaceous cyst H/O colonoscopy S/P removal of left ovary Hx of arthroscopy of left knee S/P left knee arthroscopy Hx of tubal ligation History of pubovaginal sling Hx of cystoscopy History of ankle surgery History of cholecystectomy History of bladder surgery History of thyroid surgery History of back surgery History of section Family History Daughter Von Willebrand disease Maternal Grandmother Family history of bladder cancer Family history of breast cancer Sister Family history of breast cancer Maternal Grandfather Family history of lung cancer Other Asthma Diabetes Emphysema of lung Social History Household Members: Family Housing: House Are you a primary md do resident urgent care to a significant other at home: No Do you presently have visiting nurse or other home services: No Alcohol intake: never Comment: medicated, see MAR Patient Tobacco Use Status: Never used Tobacco e-Cigarette/Vaping Use: Never Used Second Hand Smoke Exposure: No service: No Current occupational status: employed 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 Cognitive needs: No Hearing needs: No Vision needs: No Female Reproductive History Menstrual Age of Menarche: 14 Review of Systems Const All systems reviewed & are unremarkable except as noted in HPI and below Physical Exam Vital Signs: Last Vital Signs Pulse 65 04/11/24 08:20 Resp 16 04/11/24 08:20 BP 136/91 H 04/11/24 08:20 Pulse Ox 96 04/11/24 08:20 Oxygen Delivery Method Room Air 04/11/24 08:20 BMI result Body Mass Index 24.6 General: awake, alert, oriented. Answers questions appropriately. Fully engaged in examination. Skin: warm, dry, intact HEENT: Normocephalic. Hearing intact. Cardiac: External chest normal in appearance. Respiratory: No cough, audible wheezing or stridor. Abdomen: without gross distension. MS: No obvious swelling or deformities. Able to transition from sit to stand unassisted. Ambulates with antalgic gait Neurological: Oriented to person, place, time and situation. Thought process intact. Psychiatric: Appropriate mood and affect. Good judgment and insight. Results Reviewed Results Reviewed: 01/2024 MR/MR knee LT wo con IMPRESSION: 1. Significant attenuation of the medial meniscal body, extending through the posterior horn and root, likely representing a combination of meniscectomy and degenerative tearing. Correlation with surgical history is recommended. Inner margin blunting/fraying of the anterior horn, new when compared to the prior examination. 2. Mild tricompartmental osteoarthritis, slightly progressed. Small joint effusion and trace Calderon's cyst. Assessment & Plan Assessment & Plan (1) S/P left knee arthroscopy: Comment: left knee arthroscopy with medial and lateral partial meniscectomy and chondroplasty 05/05/2022 [place] Code(s): Z98.890 - Other specified postprocedural states Category: Surgical (2) Left knee pain: Code(s): M25.562 - Pain in left knee Category: Medical Qualifiers: Chronicity: chronic Qualified Code(s): M25.562 - Pain in left knee; G89.29 - Other chronic pain (3) Meniscus degeneration: Code(s): M23.309 - Other meniscus derangements, unspecified meniscus, unspecified knee Category: Medical Qualifiers: Laterality: left Qualified Code(s): M23.307 - Other meniscus derangements, unspecified meniscus, left knee Plan Alicia presents back to the office today for follow up left knee pain Previously underwent diagnostic left genicular nerve block with reported 90% pain relief for 8 hours after the procedure Patient has exhausted conservative therapy including prescription medications, peripheral nerve stimulation, nonsteroidal anti-inflammatory medication, PRP, Tylenol, physical therapy and home exercise program. Will schedule for fluoroscopy guided left genicular RFA with sedation All questions and concerns were answered, patient agrees with the plan. Follow-up after after procedure, sooner if needed. Coding Level of Care Code Est Pt Level 3 (05976) Complex EM visit Add On G2211 Diagnoses S/P left knee arthroscopy Z98.890 Chronic pain of left knee M25.562; G89.29 Chronicity: chronic Degeneration of meniscus of left knee M23.307 Laterality: left
[2024-04-11 08:20] VITALS: BP 136/91; PULSE 65; RESP 16; O2SAT 96; BMI 24.6
== END 2024-04-11 08:45 | disposition home or self-care (01) ==
PROVIDERS: PCP Internal Medicine; Visit Provider Registered Nurse Emergency
DX: Z98.890 Other specified postprocedural states (principal); M25.562 Pain in left knee; G89.29 Other chronic pain; M23.307 Other meniscus derangements, unspecified meniscus, left knee
CPT/HCPCS: 99213; G2211

== ENCOUNTER → 2024-04-11 08:16 | Outpatient (BNVA) | payer OTHER, SELFPAY | PROVIDERS: PCP Internal Medicine; Visit Provider Registered Nurse Emergency | DX: M25.562 Pain in left knee (principal); M23.307 Other meniscus derangements, unspecified meniscus, left knee; G89.29 Other chronic pain; Z98.890 Other specified postprocedural states | CPT/HCPCS: 99212 ==

== ENCOUNTER 2024-04-26 09:43 | Outpatient (AMB) | payer OTHER, SELFPAY ==
[2024-04-26 10:25] VITALS: BP 124/72; PULSE 77; O2SAT 98; BMI 26.4
--- NOTE | 2024-04-26 10:25 | A.OFFPC_ITS ---
Vital Signs 04/26/24 10:25 Height 5 ft 1 in Weight 140 lb BMI 26.4 BP 124/72 Blood Pressure Location Lt brachial Position Sitting Pulse 77 Pulse Source Pulse Oximeter Pulse Oximetry (%) 98 Oxygen Delivery Method Room Air Intake Visit Reasons: L breast mass, S/p LSG Allergies oxycodone [OXYCODONE] Allergy (Intermediate, Verified 04/26/24 10:25) RASH,SHAKES, shakiness, body shaking, tremors Tobacco use date assessed: 04/26/24 Dental Screening Dental Screen Date: 04/26/24 Did you have a dental visit in the last 12 months?: Yes Did you have a dental problem in the last 6 months where you did not have access to dental care?: No Was dental information given to patient?: Patient has dentist HPI L breast mass, S/p LSG HPI Details The patient is a 49-year-old female presenting with persistent knee pain. The knee condition dates back several years, initially exacerbated by an increase in physical activity. Despite intervention, including pain management strategies and consultations with an sales support specialist, the symptoms persist. The patient refuses additional Platelet-Rich Plasma (PRP) injections, considering them ineffective in resolving long-term issues. MRI findings reveal a meniscus tear and osteoarthritic changes, acknowledged as an ongoing source of discomfort. A prior thyroidectomy facilitates the management of hypothyroidism, regularly monitored through blood tests with Synthroid therapy. TSH levels recently measured under control. Past colonoscopies disclosed tubular adenomat ous polyps necessitating follow-up due to precancerous potential. Additionally, the patient experiences arm numbness and weakness, suggestive of carpal tunnel syndrome in conjunction with a possible rotator cuff tear, suspected post-trauma from extensive physical strain. Symptoms include nocturnal discomfort and coloration changes indicative of circulatory disruption, compounded by impingement causing numbness in specific digits. [facility] Medical History (Updated 04/26/24 @ 10:49 by Tamela Pelaez MD) History of thyroid cancer Dysphagia Bile salt-induced diarrhea Hypothyroid Complex ovarian cyst Nephrolithiasis Meniscus degeneration Obesity Osteoarthritis of right patellofemoral joint Headache Left knee pain Annual physical exam Pre-op examination Malpositioned IUD Hydronephrosis Fatty liver Morbid obesity Gastroenteritis Bilateral ovarian cysts Memory deficit Anserine bursitis Dawson angioma Shoulder pain, left Elevated LFTs Impaired fasting glucose Postsurgical hypothyroidism Benign essential hypertension Pericardial effusion Hypercholesterolemia Vitamin D deficiency 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 Family history of von Willebrand disease Patellar fracture Closed right ankle fracture Lumbar disc herniation History of renal calculi Vertigo Migraine Asthma Surgical History (Updated 04/26/24 @ 10:49 by Tamela Pelaez MD) S/P laparoscopic sleeve gastrectomy Hx of laparoscopic partial gastrectomy Postoperative stitch abscess Postop check Sebaceous cyst H/O colonoscopy S/P removal of left ovary Hx of arthroscopy of left knee S/P left knee arthroscopy Hx of tubal ligation History of pubovaginal sling Hx of cystoscopy History of ankle surgery History of cholecystectomy History of bladder surgery History of thyroid surgery History of back surgery History of section Family History Daughter Von Willebrand disease Maternal Grandmother Family history of bladder cancer Family history of breast cancer Sister Family history of breast cancer Maternal Grandfather Family history of lung cancer Other Asthma Diabetes Emphysema of lung Social History Household Members: Family Housing: House Are you a primary medical care manager to a significant other at home: No Do you presently have visiting nurse or other home services: No Alcohol intake: never Comment: medicated, see MAR Patient Tobacco Use Status: Never used Tobacco Tobacco use type: Cigarette e-Cigarette/Vaping Use: Never Used Second Hand Smoke Exposure: No service: No Current occupational status: employed 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 Cognitive needs: No Hearing needs: No Vision needs: No Female Reproductive History Menstrual Age of Menarche: 14 Questionnaire PHQ-9 Over the last 2 weeks, how often have you been bothered by any of the following problems? 1. Little interest or pleasure in doing things: not at all 2. Feeling down, depressed, or hopeless: not at all 3. Trouble falling or staying asleep, or sleeping too much: not at all 4. Feeling tired or having little energy: not at all 5. Poor appetite or overeating: not at all 6. Feeling bad about yourself - or that you are a failure or have let yourself or your family down: not at all 7. Trouble concentrating on things, such as reading the newspaper or watching television: not at all 8. Moving or speaking so slowly that other people could have noticed. Or the opposite - being so fidgety or restless that you have been moving around a lot more than usual: not at all 9. Thoughts that you would be better off or of hurting yourself in some way: not at all Total score: 0 Depression Screening Interpretation: Negative Depression Screening Done: Yes Source: Developed by Drs. Juan Vega, Tatiana Dumas, Nikolay [place] nd colleagues, with an educational gia from [employer] Thrive Questionnaire Date Thrive assessed: 04/26/24 I am a: Patient What is your living situation today?: I have a steady place to live Within the past 12 months, did the food you bought not last and you didn't have the money to get more?: Never true Within the past 12 months, did you worry whether your food would run out before you got money to buy more?: Never true Do you have trouble paying for medicines?: No Do you have trouble getting transportation to medical appointments?: No Do you have trouble paying your heating and electricity bill?: No Do you have trouble taking care of your child, family member or friend?: No Do you have trouble with day-to-day activities such as bathing, preparing meals, shopping, managing finances, etc.?: No Are you currently unemployed and looking for a job?: No Are you interested in more education?: No Currently or been in a relationship where the following occur: No concerns reported THRIVE Score: 0 AUDIT C Alcohol Use Questionnaire (AUDIT-C) 1. How often do you have a drink containing alcohol?: Monthly or less 2. How many drinks containing alcohol do you have on a typical day when you are drinking?: 1 or 2 3. How often do you have six or more drinks on one occasion?: Never Total Score: 1 ACACIA-7 AMB Questionnaire ACACIA-7 Date ACACIA - 7 assessed: 04/26/24 Feeling nervous, anxious, or on edge: 0 = Not at all Not being able to stop or control worryin = Not at all Worrying too much about different things: 0 = Not at all Trouble relaxin = Not at all Being so restless that it is hard to sit still: 0 = Not at all Becoming easily annoyed or irritable: 0 = Not at all Feeling afraid as if something awful might happen: 0 = Not at all Total ACACIA-7 score (0-4 normal; 5-9 mild; 10-14 moderate; 15-21 severe): 0 Source: Developed by Drs. Juan Vega, Tatiana Dumas, Nikolay Ling and colleagues, with an educational gia from [employer] ACACIA-7 Assessment Billing ACACIA-7 Assessment Tool: ACACIA-7 Assessment 61795 Physical exam (Primary Care) Vital Signs: Last Vital Signs Pulse 77 04/26/24 10:25 BP 124/72 04/26/24 10:25 Pulse Ox 98 04/26/24 10:25 Oxygen Delivery Method Room Air 04/26/24 10:25 BMI result Body Mass Index 26.4 Tobacco/Smoking Status: Tobacco use Status Tobacco use date assessed 04/26/24 04/26/24 10:26 Patient Tobacco Use Status Never used Tobacco 04/26/24 10:26 Tobacco use type Cigarette 04/26/24 10:26 e-Cigarette/Vaping Use Never Used 04/26/24 10:26 PHQ-9: PHQ-9 Score PHQ-9: Total score 0 04/26/24 10:53 Depression Screening Interpretation: Negative Thrive Assessment: Date of Thrive Assessment Date Thrive assessed 04/26/24 04/26/24 10:26 Currently or been in a relationship where the following occur: No concerns reported Const General: alert; No acute distress Eyes Conjunctivae: conjunctivae normal Resp Auscultation: clear to auscultation bilaterally Cardio Rate: regular rate Rhythm: regular rhythm GI Inspection: Yes normal to inspection Extrem General: Yes normal to inspection and No edema Coding Level of Care Code Est Pt Level 4 (90177) Complex EM visit Add On G2211 Diagnoses S/P laparoscopic sleeve gastrectomy Z98.84 Hx of arthroscopy of left knee Z98.890 Tubular adenoma of colon D12.6 Postsurgical hypothyroidism E89.0 Benign essential hypertension I10 Hypercholesterolemia E78.00 Impaired fasting glucose R73.01 Asthma, unspecified asthma severity, unspecified whether complicated, unspecified whether persistent J45.31 Asthma complication type: with acute exacerbation Asthma persistence: persistent Asthma severity: mild History of thyroid cancer Z85.850 Additional Codes ACACIA-7 Assessment Billing - ACACIA-7 Assessment Tool: ACACIA-7 Assessment 38956 ([id number]) Assessment & Plan Assessment & Plan (1) S/P laparoscopic sleeve gastrectomy: Comment: 12/07/2023 Code(s): Z98.84 - Bariatric surgery status Category: Surgical (2) Hx of arthroscopy of left knee: Comment: 04/2022 Code(s): Z98.890 - Other specified postprocedural states Category: Surgical (3) Tubular adenoma of colon: Comment: 11/2023 scope= 1 TA and an inflammatory polyp repeat in 3 years Code(s): D12.6 - Benign neoplasm of colon, unspecified Category: Medical (4) Postsurgical hypothyroidism: Comment: S/P thyroidectomy by Dr. Dalton in 2005 Code(s): E89.0 - Postprocedural hypothyroidism Category: Medical (5) Benign essential hypertension: Code(s): I10 - Essential (primary) hypertension Category: Medical (6) Hypercholesterolemia: Code(s): E78.00 - Pure hypercholesterolemia, unspecified Category: Medical (7) Impaired fasting glucose: Code(s): R73.01 - Impaired fasting glucose Category: Medical (8) Asthma: Code(s): J45.909 - Unspecified asthma, uncomplicated Category: Medical Qualifiers: Asthma complication type: with acute exacerbation Asthma persistence: persistent Asthma severity: mild Qualified Code(s): J45.31 - Mild persistent asthma with (acute) exacerbation (9) History of thyroid cancer: Comment: Dr. Arash Perez Code(s): Z85.850 - Personal history of malignant neoplasm of thyroid Category: Medical Plan - Continue conservative management of degenerative joint disease and osteoarthritis with topical NSAIDs such as Voltaren gel. - Advise against further PRP injections, given the lack of persistent benefit previously. - Maintain current thyroid hormone replacement therapy, ensuring regular follow- up and blood level monitoring. - Educate the patient on the lack of efficacy of thybendazone for thyroid conditions. - Schedule a repeat colonoscopy to monitor adenomatous polyps in line with previous findings, within the recommended timeframe. - Arrange follow-up with orthopedics regarding the MRI findings suggestive of a rotator cuff tear for potential intervention. - Implement conservative measures for carpal tunnel syndrome, including use of a wrist brace during rest, and referral to hand specialist if symptoms persist.
== END 2024-04-26 11:10 | disposition home or self-care (01) ==
PROVIDERS: PCP Internal Medicine; Visit Provider Internal Medicine
DX: Z98.84 Bariatric surgery status (principal); Z98.890 Other specified postprocedural states; D12.6 Benign neoplasm of colon, unspecified; E89.0 Postprocedural hypothyroidism; I10 Essential (primary) hypertension; E78.00 Pure hypercholesterolemia, unspecified; R73.01 Impaired fasting glucose; J45.31 Mild persistent asthma with (acute) exacerbation; Z85.850 Personal history of malignant neoplasm of thyroid

== ENCOUNTER → 2024-04-26 09:43 | Outpatient (BNVA) | payer OTHER, SELFPAY | PROVIDERS: PCP Internal Medicine; Visit Provider Internal Medicine | DX: D12.6 Benign neoplasm of colon, unspecified (principal); E89.0 Postprocedural hypothyroidism; E78.00 Pure hypercholesterolemia, unspecified; R73.01 Impaired fasting glucose; I10 Essential (primary) hypertension; Z98.890 Other specified postprocedural states; Z98.84 Bariatric surgery status; J45.31 Mild persistent asthma with (acute) exacerbation; Z85.850 Personal history of malignant neoplasm of thyroid | CPT/HCPCS: 96127; 99212 ==

== ENCOUNTER 2024-04-30 09:30 | Outpatient (AMB) | payer OTHER, SELFPAY ==
--- NOTE | 2024-04-30 09:31 | MHC.OFFVISWM ---
VS Expanded 04/30/24 09:32 Height 5 ft 1 in Weight 130 lb 2 oz BMI 24.6 Body Fat % 28.9 Fat Free Mass 92.6 Visceral Fat Rating 7 Body Water % 48.8 Muscle Mass/Score 87 Basal Metabolic Rate/Score 1,284 Intake Visit Reasons: (TV) PO LSG 12/07/23 Rip Sawyer Required: No Allergies oxycodone [OXYCODONE] Allergy (Intermediate, Verified 04/26/24 10:25) RASH,SHAKES, shakiness, body shaking, tremors Medication List - Last Reconciled 04/30/24 by PEGGY Mariano albuterol sulfate 90 mcg/actuation 2 puffs inhalation Q6H PRN 30 days blood pressure monitor As directed diclofenac sodium 1% (Voltaren Arthritis Pain) 4 grams topical QID PRN Lactobacillus rhamnosus GG (Culturelle) 1 cap PO DAILY levothyroxine 300 mcg PO DAILY@0600 meclizine 25 mg PO TID PRN medroxyprogesterone 10 mg PO DAILY pyridoxine (vitamin B6) 100 mg PO DAILY 90 days rizatriptan 10 mg PO DAILY PRN HPI Comments Details: This?a?48?yo female who is s/p LSG without hiatal hernia repair on?12/07/2023. Presents for 4 month post op visit. Weight today is 130.2 pounds, with a BMI of 24.6. There has been a 94.2 pound weight loss,(initial weight 224.4 pounds) since starting the program on 08/15/2023 reflecting a 41.9 % total body weight loss and a weight loss of 80.3 pounds since surgery (operative weight 210.5 pounds) reflecting a 38.1 % TBWL since surgery. No complaints of nausea, emesis, abdominal pain or reflux. Reports infrequent but normal bowel movements every 1-2 days. Taking womens once a day mvi She is doing well and reports feeling alonso quicker with the protein shake. Feeling great. Wants to add in a breakfast Due to her weight loss she has had excess skin to the abdomen. She has had increased sweating and due to this she is having to shower twice daily. She has not yet noticed a rash. She has intermittent itch. She ahs also said that the excess skin has caused difficulty with fitting clothes. Present meal plan includes: celebrate 4 in 1, 1 scoop in 8 oz almond milk at 8-10, 11-1 pure protein bar 2-3 4 pm meal w 3 forks protein and 3 forks veg Celebrate 4 in 1, 1 scoop 6-8 Drinking 48 oz water ? Exercise routine includes: gym treadmill, [address], 5 days per week stationary bike at home, [address], 5 days per week PFS Medical History History of thyroid cancer Dysphagia Bile salt-induced diarrhea Hypothyroid Complex ovarian cyst Nephrolithiasis Meniscus degeneration Obesity Osteoarthritis of right patellofemoral joint Headache Left knee pain Annual physical exam Pre-op examination Malpositioned IUD Hydronephrosis Fatty liver Morbid obesity Gastroenteritis Bilateral ovarian cysts Memory deficit Anserine bursitis Dawson angioma Shoulder pain, left Elevated LFTs Impaired fasting glucose Postsurgical hypothyroidism Benign essential hypertension Pericardial effusion Hypercholesterolemia Vitamin D deficiency 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 Family history of von Willebrand disease Patellar fracture Closed right ankle fracture Lumbar disc herniation History of renal calculi Vertigo Migraine Asthma Surgical History S/P laparoscopic sleeve gastrectomy Hx of laparoscopic partial gastrectomy Postoperative stitch abscess Postop check Sebaceous cyst H/O colonoscopy S/P removal of left ovary Hx of arthroscopy of left knee S/P left knee arthroscopy Hx of tubal ligation History of pubovaginal sling Hx of cystoscopy History of ankle surgery History of cholecystectomy History of bladder surgery History of thyroid surgery History of back surgery History of section Family History Daughter Von Willebrand disease Maternal Grandmother Family history of bladder cancer Family history of breast cancer Sister Family history of breast cancer Maternal Grandfather Family history of lung cancer Other Asthma Diabetes Emphysema of lung Social History Household Members: Family Housing: House Are you a primary small animal caretaker to a significant other at home: No Do you presently have visiting nurse or other home services: No Alcohol intake: never Comment: medicated, see MAR Patient Tobacco Use Status: Never used Tobacco Tobacco use type: Cigarette e-Cigarette/Vaping Use: Never Used Second Hand Smoke Exposure: No service: No Current occupational status: employed 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 Cognitive needs: No Hearing needs: No Vision needs: No Female Reproductive History Menstrual Age of Menarche: 14 Telehealth Telehealth Telehealth Platform: Telephone Location of provider rendering services: practice address Location of patient: address on file Patient Identification confirmed using: Name, : Yes Telehealth method: voice only Patient verbally consented to treatment: Yes Patient verbally consented to billing insurance company: Yes Patient informed of any privacy concerns related to visit: Yes Minutes spent on Phone/Video with Pt.: 15 Assessment & Plan Assessment & Plan (1) S/P laparoscopic sleeve gastrectomy: Comment: 12/07/2023 Code(s): Z98.84 - Bariatric surgery status Category: Surgical Plan: One egg with 2 forks fulls of vegetables at 8-10, per her request add food in the morning celebrate 4 in 1, 1 scoop in 8 oz almond milk at 11-1 pure protein bar 2-3 4 pm meal w 3 forks protein and 3 forks veg Celebrate 4 in 1, 1 scoop 6-8 Continue exercises she is doing. (2) Excess skin: Code(s): L98.7 - Excessive and redundant skin and subcutaneous tissue Category: Medical Plan: Given greater than 90 lb weight loss, she has had excess skin of the abdomen. She has had to increase showers to twice daily due to increased swelling. She has not experienced significant rash but will alert us if she does. She may require medically necessary skin removal surgery, especially since this is causing her to increase her hygiene routine. She also has difficulty with clothes fitting properly due to the excess skin.
[2024-04-30 09:32] VITALS: BMI 24.6
== END 2024-04-30 09:46 | disposition home or self-care (01) ==
LOC: HO.HBS 09:45
PROVIDERS: PCP Internal Medicine; Visit Provider Physician Assistant Surgical
DX: L98.7 Excessive and redundant skin and subcutaneous tissue (principal); Z90.3 Acquired absence of stomach [part of]; Z98.84 Bariatric surgery status
CPT/HCPCS: 99213; G2211

== ENCOUNTER 2024-05-09 10:46 | Outpatient (AMB) | payer OTHER, SELFPAY ==
--- NOTE | 2024-05-09 10:51 | MHC.OFFVIS ---
Intake Visit Reasons: US follow up(set) Intake Note: Pt presents to the office today for an US follow up. Allergies oxycodone [OXYCODONE] Allergy (Intermediate, Verified 05/09/24 10:51) RASH,SHAKES, shakiness, body shaking, tremors HPI Comments Details: Alicia Jenkins is a very pleasant female. They are a patient of Dr Pelaez. She is seen for the following urologic conditions - nephrolithiasis Follow-up from 08/15/2023 Imaging shows low stone burden Continue with B6 daily. Reduced to 50 mg. Encourage fluids Yearly follow-up Hold almond milk Minimize nuts Use Tums with main meal for oxalate binding Nephrolithiasis/Urolithiasis:? Urolithiasis was diagnosed 2015 ? Seen in [facility] 05/08/16, 04/13/20 ? The patient previously had kidney stones whose composition w unknown. ? Laboratory investigations include no recent labs. ? 24 Hour urine evaluation 07/12 , High oxalate > 30mg, Good Volume > 2.00 L, Low calcium <200, High Citrate. ? Prior treatment(s) include 06/11 , right, ureteroscopy - no stone, 06/15 left ureteroscopy laser lithotripsy - 12/18 R ESWL ? Prior imaging includes a - CT (computed tomography) scan of the abdomen/pelvis (stone protocol) 05/14 - multiple small stones seen in the right kidney. Images reviewed personally - 07/12 , a renal ultrasound, showing no evidence of stones - 04/17 CT scan left UVJ stone with mild hydroureteronephrosis - 08/17 CT scan 5 mm right, 2 mm left - 11/17 renal ultrasound right 6 mm stone, no stone left, 02/17 renal US no stones - 03/20 renal ultrasound 3 mm stone right side [facility] Medical History (Updated 05/09/24 @ 11:09 by Marcio Winslow MD) Nephrolithiasis History of thyroid cancer Dysphagia Bile salt-induced diarrhea Hypothyroid Complex ovarian cyst Meniscus degeneration Obesity Osteoarthritis of right patellofemoral joint Headache Left knee pain Annual physical exam Pre-op examination Malpositioned IUD Hydronephrosis Fatty liver Morbid obesity Gastroenteritis Bilateral ovarian cysts Memory deficit Anserine bursitis Dawson angioma Shoulder pain, left Elevated LFTs Impaired fasting glucose Postsurgical hypothyroidism Benign essential hypertension Pericardial effusion Hypercholesterolemia Vitamin D deficiency 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 Family history of von Willebrand disease Patellar fracture Closed right ankle fracture Lumbar disc herniation History of renal calculi Vertigo Migraine Asthma Surgical History S/P laparoscopic sleeve gastrectomy Hx of laparoscopic partial gastrectomy Postoperative stitch abscess Postop check Sebaceous cyst H/O colonoscopy S/P removal of left ovary Hx of arthroscopy of left knee S/P left knee arthroscopy Hx of tubal ligation History of pubovaginal sling Hx of cystoscopy History of ankle surgery History of cholecystectomy History of bladder surgery History of thyroid surgery History of back surgery History of section Family History Daughter Von Willebrand disease Maternal Grandmother Family history of bladder cancer Family history of breast cancer Sister Family history of breast cancer Maternal Grandfather Family history of lung cancer Other Asthma Diabetes Emphysema of lung Social History Household Members: Family Housing: House Are you a primary lawn care professional to a significant other at home: No Do you presently have visiting nurse or other home services: No Alcohol intake: never Comment: medicated, see MAR Patient Tobacco Use Status: Never used Tobacco Tobacco use type: Cigarette e-Cigarette/Vaping Use: Never Used Second Hand Smoke Exposure: No service: No Current occupational status: employed 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 Cognitive needs: No Hearing needs: No Vision needs: No Female Reproductive History Menstrual Age of Menarche: 14 Review of Systems Const Denies chills and Denies fever(s) Card Reports no additional complaints and Denies syncope Resp Denies cough GI Denies abdominal pain and Denies heartburn Reports as per HPI and Denies change in libido Neuro Denies syncope Psych Denies change in libido Endo Denies change in libido Physical Exam Const General: cooperative, healthy appearing, comfortable and no acute distress Orientation/consciousness: patient oriented x3 HEENT Face and sinus: Yes normal facial exam Mouth: moist mucous membranes Neck Neck: Yes normal visual inspection, Yes full ROM and Yes trachea midline Chest Chest palpation & inspection: normal inspection of the chest Resp Effort & Inspection: normal respiratory effort, able to speak in complete sentences and no respiratory distress GI Inspection: Yes normal to inspection Back/Spine/Pelvis Cervical Spine: normal cervical lordosis Thoracic/Lumbar Spine: thoracic and lumbar spine normal to inspection Skin General skin exam: no rashes or lesions noted Neuro General: patient oriented x3, gait normal, tone normal and moves all extremities Extrem General: Yes normal to inspection and Yes capillary refill normal Assessment & Plan Assessment & Plan (1) Nephrolithiasis: Comment: May 2020 allopurinol vitamin B6 right ESWL November 2022 Dr. Winslow Code(s): N20.0 - Calculus of kidney Category: Medical Plan Twelve month follow-up imaging Orders: Orders US renal BI 12 Months N20.0 - Calculus of kidney Patient Instructions: This note is constructed using voice recognition software. While every effort has been made to ensure accuracy sales promotion director errors may have been included. Imaging studies, laboratory and physical exam results were discussed and reviewed in detail. No major barriers to patient understanding were identified. An opportunity to ask questions regarding the treatment plan was provided. All questions were answered. The patient expressed understanding and agreement with the above treatment plan. The patient is aware they should contact our office by phone for worsening of their current condition or the appearance of new urologic symptoms. Compliance is encouraged with any medications and followup testing that is ordered. It is a privilege to participate in the urologic care of your patient. If you have any questions or concerns regarding treatment for the above conditions, or other urologic issues, please do not hesitate to contact me. The office telephone contact is [phone]. Sincerely, Dr Marcio Winslow MD, [facility] - Urology Compassionate Specialist Care for the Genitourinary System Coding Level of Care Code Est Pt Level 4 (88445) Diagnoses Nephrolithiasis N20.0
== END 2024-05-09 11:12 | disposition home or self-care (01) ==
PROVIDERS: PCP Internal Medicine; Visit Provider Urology
DX: N20.0 Calculus of kidney (principal)
CPT/HCPCS: 99214

== ENCOUNTER → 2024-05-09 10:46 | Outpatient (BNVA) | payer OTHER, SELFPAY | PROVIDERS: PCP Internal Medicine; Visit Provider Urology | DX: N20.0 Calculus of kidney (principal) | CPT/HCPCS: 99212 ==

== ENCOUNTER 2024-05-10 09:47 | Outpatient (AMB) | payer OTHER, SELFPAY ==
[2024-05-10 09:48] VITALS: BP 118/74; BMI 24.6
--- NOTE | 2024-05-10 09:48 | MHC.OFFVIS ---
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 Complaining of right-sided pelvic pain no associated urinary or GI symptoms, no vaginal discharge no fever or chills, no nausea or vomiting. Last Pap/HPV was negative in 04/19 Last Mammogram was BI-RADS 2 in 01/18, the patient had breast biopsy showed fibroadenoma, the patient is scheduled for diagnostic mammogram in 06/19 Last Colonoscopy was done in 11/18, the recommendation was to repeat in 1 2 to years A pelvic ultrasound scheduled soon for follow-up regarding uterine myoma [facility] Medical History Nephrolithiasis History of thyroid cancer Dysphagia Bile salt-induced diarrhea Hypothyroid Complex ovarian cyst Meniscus degeneration Obesity Osteoarthritis of right patellofemoral joint Headache Left knee pain Annual physical exam Pre-op examination Malpositioned IUD Hydronephrosis Fatty liver Morbid obesity Gastroenteritis Bilateral ovarian cysts Memory deficit Anserine bursitis Dawson angioma Shoulder pain, left Elevated LFTs Impaired fasting glucose Postsurgical hypothyroidism Benign essential hypertension Pericardial effusion Hypercholesterolemia Vitamin D deficiency 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 Family history of von Willebrand disease Patellar fracture Closed right ankle fracture Lumbar disc herniation History of renal calculi Vertigo Migraine Asthma Surgical History S/P laparoscopic sleeve gastrectomy Hx of laparoscopic partial gastrectomy Postoperative stitch abscess Postop check Sebaceous cyst H/O colonoscopy S/P removal of left ovary Hx of arthroscopy of left knee S/P left knee arthroscopy Hx of tubal ligation History of pubovaginal sling Hx of cystoscopy History of ankle surgery History of cholecystectomy History of bladder surgery History of thyroid surgery History of back surgery History of section Family History Daughter Von Willebrand disease Maternal Grandmother Family history of bladder cancer Family history of breast cancer Sister Family history of breast cancer Maternal Grandfather Family history of lung cancer Other Asthma Diabetes Emphysema of lung Social History Household Members: Family Housing: House Are you a primary nurse behavioral health care to a significant other at home: No Do you presently have visiting nurse or other home services: No Alcohol intake: never Comment: medicated, see MAR Patient Tobacco Use Status: Never used Tobacco Tobacco use type: Cigarette e-Cigarette/Vaping Use: Never Used Second Hand Smoke Exposure: No service: No Current occupational status: employed 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 Cognitive needs: No Hearing needs: No Vision needs: No Female Reproductive History Menstrual Age of Menarche: 14 control method: permanent sterilization Date of last pap smear: 04/14/22 Date of Mammogram: 01/10/24 Review of Systems Const All systems reviewed & are unremarkable except as noted in HPI and below Card Reports as per HPI Resp Reports as per HPI GI Reports as per HPI and Reports no additional complaints Reports as per HPI Physical Exam Vital Signs: Last Vital Signs BP 118/74 05/10/24 09:48 BMI result Body Mass Index 24.6 Const General: cooperative, healthy appearing and comfortable Chest Chest palpation & inspection: normal inspection of the chest and normal palpation of entire chest wall Breast/axilla inspection: normal inspection of the breasts and normal inspection of the axillae Breast/axilla palpation: normal palpation of the breasts, normal palpation of the axillae and no axillary lymphadenopathy Resp Effort & Inspection: normal respiratory effort Auscultation: clear to auscultation bilaterally Percussion: percussion normal Cardio Palpation: normal PMI Rate: regular rate Rhythm: regular rhythm Heart sounds: no murmurs and no rubs Peripheral pulses: Peripheral pulses 2+ throughout GI Inspection: Yes normal to inspection Palpation (GI): Soft to palpation, nontender, no guarding, not rigid and No hepatosplenomegaly present Percussion: Yes normal to percussion Auscultation: normal bowel sounds Rectal Exam - Female: deferred General: Yes bladder normal to palpation External Female Exam: No lesion Speculum Exam - Vagina: normal appearance of the vagina, normal palpation, normal vaginal discharge and not erythematous Speculum Exam - Cervix: normal appearance of the cervix and normal palpation Bimanual exam- vagina & uterus: normal bimanual exam, normal palpation, uterine size normal, bladder normal to palpation, consistency normal and normal palpation Bimanual Exam- Adnexa, other: normal adnexae, no masses and no tenderness Assessment & Plan Assessment & Plan (1) Well woman exam: Code(s): Z01.419 - Encounter for gynecological examination (general) (routine) without abnormal findings Category: Medical Plan: Cotesting not indicated this year. Instructions given the patient to schedule next Mammogram in , scheduled. Counseled the patient about the recommended dietary allowance of 1000 mg of Calcium & 600 IU of vitamin D. Referral to GI for screening colonoscopy placed The patient was instructed to perform monthly self-breast exams and to schedule an annual exam in a year; All questions answered and the patient verbalized understanding. Instructed the patient to schedule annual exam in a year (2) Pelvic pain: Code(s): R10.2 - Pelvic and perineal pain Category: Medical Plan: Urine test done in the office was negative. GC and chlamydia taken and pelvic ultrasound scheduled . Discussed with the patient the differential diagnosis of pelvic pain including but not limited to adnexal, uterine masses, pelvic infections (PID), GI the (Irritable bowel syndrome, diverticulitis, others), musculoskeletal, myofascial pain abdominal wall , adhesions, endometriosis, psychological and others causes. Will check results and treat accordingly. All questions answered, the patient verbalized understanding. Instructed the patient to schedule an ultrasound and a follow-up appointment in 2 weeks. All questions answered, the patient verbalized understanding and agreed with the plan. (3) Microscopic hematuria: Code(s): R31.29 - Other microscopic hematuria Category: Medical Plan: Urine dip showed microscopic hematuria, urine culture sent. Will repeat urine dip in 2 weeks. Discussed with the patient the possible causes of microscopic hematuria including but not limited to: interstitial cystitis, polyps, stones, masses, urethral inflammatory processes and others. If Urine Culture is negative and repeat urine dip in 2 weeks shows persistent microscopic hematuria, will proceed with CT abdomen/pelvis and urology referral. Instructions given the patient to schedule a 2 week urine dip follow-up appointment. All questions answered and the patient verbalized understanding. Orders: Orders CT NG by PCR Today R10.2 - Pelvic and perineal pain Referrals Gastroenterology Referral Z12.11 - Encounter for screening for malignant neoplasm of colon Coding Level of Care Code Est Pt Level 3 (64310) New Pt Prev Care 40-64y(98192) Diagnoses Well woman exam Z01.419 Pelvic pain R10.2 Microscopic hematuria R31.29
== END 2024-05-10 11:10 | disposition home or self-care (01) ==
LOC: HO.HWS 09:47
PROVIDERS: PCP Internal Medicine; Visit Provider Obstetrics & Gynecology
DX: Z01.419 Encounter for gynecological examination (general) (routine) without abnormal findings (principal); R10.2 Pelvic and perineal pain; R31.29 Other microscopic hematuria
CPT/HCPCS: 99213; 99396

== ENCOUNTER 2024-05-10 09:47 | Outpatient (REF) | payer OTHER, SELFPAY ==
[2024-05-11 13:58] LABS: CT PCR NOT DETECTED (Not Detect.); NG PCR NOT DETECTED (Not Detect.)
== END 2024-05-10 09:48 | disposition home or self-care (01) ==
LOC: HO.LNP 09:47
PROVIDERS: PCP Internal Medicine; Visit Provider Obstetrics & Gynecology
DX: Z01.419 Encounter for gynecological examination (general) (routine) without abnormal findings (principal); R10.2 Pelvic and perineal pain; R31.29 Other microscopic hematuria
CPT/HCPCS: 87086; 87088; 87186; 87491; 87591; 99212; 99396

== ENCOUNTER 2024-05-25 10:46 | Outpatient (REF) | payer OTHER, SELFPAY ==
--- NOTE | ~2024-05-25 | US_ITS ---
CLINICAL HISTORY: D25.9 - Leiomyoma of uterus, unspecified US pelvis transabdominal and transvaginal Comparison: None Findings: Transabdominal scanning performed for overall anatomy. Transvaginal scanning performed for additional detail. Anteverted uterus is 11.2 cm length. Normal myometrium. Endometrium 8.0 mm thickness. No lesions. Right ovary 4.5 x 3.9 x 3.1 cm. Left ovary, history of oophorectomy Almost certainly benign thin-walled right ovarian 3.0 x 2.2 x 1.8 cm cyst. No free fluid. IMPRESSION: 1. Almost certainly benign right ovarian cyst. Otherwise unremarkable pelvic ultrasound This document has been electronically signed by: Pramod Eisenberg MD on 05/25/2024 17:36:16
== END 2024-05-25 10:47 | disposition home or self-care (01) ==
LOC: HO.US 10:46
PROVIDERS: PCP Internal Medicine; Visit Provider Obstetrics & Gynecology
DX: D25.9 Leiomyoma of uterus, unspecified (principal)
CPT/HCPCS: 76830; 76856

== ENCOUNTER → 2024-05-25 10:47 | Outpatient (BNV) | payer OTHER, SELFPAY | PROVIDERS: PCP Internal Medicine; Visit Provider Specialist | DX: N83.201 Unspecified ovarian cyst, right side (principal) | CPT/HCPCS: 76830; 76856 ==

== ENCOUNTER 2024-06-12 10:23 | Outpatient (REF) | payer OTHER, SELFPAY | END 2024-06-12 10:24 | disposition home or self-care (01) | LOC: HO.LNP 10:23 | PROVIDERS: PCP Internal Medicine; Visit Provider Obstetrics & Gynecology | DX: R31.29 Other microscopic hematuria (principal); D25.9 Leiomyoma of uterus, unspecified; B95.1 Streptococcus, group B, as the cause of diseases classified elsewhere | CPT/HCPCS: 87086; 87147; 99212 ==

== ENCOUNTER 2024-06-12 10:23 | Outpatient (AMB) | payer OTHER, SELFPAY ==
--- NOTE | 2024-06-12 10:30 | A.OFFVIS_ITS ---
Intake Visit Reasons: Ultrasound follow up/urine dip Catering Administrative Assistant: Catering Administrative Assistant Present (Susan) Accompanied by: Self / Same As Patient Allergies oxycodone [OXYCODONE] Allergy (Intermediate, Verified 06/12/24 10:34) RASH,SHAKES, shakiness, body shaking, tremors HPI Comments Details: The patient is presenting for pelvic ultrasound follow-up regarding myomas seen on previous ultrasound in 10/18. The patient has microscopic hematuria, was seen by Urology for nephrolithiasis, is on her menstrual cycle today. Pelvic ultrasound showed the following: Transabdominal scanning performed for overall anatomy. Transvaginal scanning performed for additional detail. Anteverted uterus is 11.2 cm length. Normal myometrium. Endometrium 8.0 mm thickness. No lesions. Right ovary 4.5 x 3.9 x 3.1 cm. Left ovary, history of oophorectomy Almost certainly benign thin-walled right ovarian 3.0 x 2.2 x 1.8 cm cyst. No free fluid. Last visit urine dip was positive for microscopic hematuria, urine culture grew E coli sensitive to Macrobid which was prescribed and taken for 5 days ON LICENSE OF [facility] Medical History Nephrolithiasis History of thyroid cancer Dysphagia Bile salt-induced diarrhea Hypothyroid Complex ovarian cyst Meniscus degeneration Obesity Osteoarthritis of right patellofemoral joint Headache Left knee pain Annual physical exam Pre-op examination Malpositioned IUD Hydronephrosis Fatty liver Morbid obesity Gastroenteritis Bilateral ovarian cysts Memory deficit Anserine bursitis Dawson angioma Shoulder pain, left Elevated LFTs Impaired fasting glucose Postsurgical hypothyroidism Benign essential hypertension Pericardial effusion Hypercholesterolemia Vitamin D deficiency 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 Family history of von Willebrand disease Patellar fracture Closed right ankle fracture Lumbar disc herniation History of renal calculi Vertigo Migraine Asthma Surgical History S/P laparoscopic sleeve gastrectomy Hx of laparoscopic partial gastrectomy Postoperative stitch abscess Postop check Sebaceous cyst H/O colonoscopy S/P removal of left ovary Hx of arthroscopy of left knee S/P left knee arthroscopy Hx of tubal ligation History of pubovaginal sling Hx of cystoscopy History of ankle surgery History of cholecystectomy History of bladder surgery History of thyroid surgery History of back surgery History of section Family History Daughter Von Willebrand disease Maternal Grandmother Family history of bladder cancer Family history of breast cancer Sister Family history of breast cancer Maternal Grandfather Family history of lung cancer Other Asthma Diabetes Emphysema of lung Social History Household Members: Family Housing: House Are you a primary rn critical care to a significant other at home: No Do you presently have visiting nurse or other home services: No Alcohol intake: never Comment: medicated, see MAR Patient Tobacco Use Status: Never used Tobacco Tobacco use type: Cigarette e-Cigarette/Vaping Use: Never Used Second Hand Smoke Exposure: No service: No Current occupational status: employed 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 Cognitive needs: No Hearing needs: No Vision needs: No Female Reproductive History Menstrual Age of Menarche: 14 Review of Systems Const All systems reviewed & are unremarkable except as noted in HPI and below Reports as per HPI and Reports no additional complaints GI Reports no additional complaints Reports no additional complaints Assessment & Plan Assessment & Plan (1) Uterine myoma: Code(s): D25.9 - Leiomyoma of uterus, unspecified Category: Medical Plan: Discussed with the patient the finding on current ultrasound and no mention of uterine myomas seen previously on pelvic ultrasound. Instructions given to patient to call in case any of the following occurs: pressure symptoms, abnormal uterine bleeding, pelvic pain; All questions answered, the patient verbalized understanding and agreed with the plan . (2) Microscopic hematuria: Code(s): R31.29 - Other microscopic hematuria Category: Medical Plan: Will send urine for culture. Since the patient is being followed up by Urology, and is on menstrual cycle today will cancel repeat urine dip Coding Level of Care Code Est Pt Level 3 (31823) Diagnoses Uterine myoma D25.9 Microscopic hematuria R31.29
== END 2024-06-12 10:45 | disposition home or self-care (01) ==
LOC: HO.HWS 10:23
PROVIDERS: PCP Internal Medicine; Visit Provider Obstetrics & Gynecology
DX: D25.9 Leiomyoma of uterus, unspecified (principal); R31.29 Other microscopic hematuria
CPT/HCPCS: 99213

== ENCOUNTER 2024-06-25 09:12 | Outpatient (REF) | payer OTHER, SELFPAY ==
--- NOTE | ~2024-06-25 | XR_ITS ---
EXAMINATION: XR KNEE 3 VIEWS LEFT HISTORY: M25.562 - Pain in left knee COMPARISON: Comparison is made with the prior examination of the right knee dated 11/26/2021. FINDINGS: Standing AP views of both knees and additional lateral and sunrise patellar views of the left knee are submitted. Osseous mineralization is normal. There is moderate osteoarthritis of the medial compartment and mild osteoarthritis of the lateral compartment, with joint space narrowing and osteophyte formation. There is no fracture or dislocation. There is chondrocalcinosis. There is no joint effusion. XR/XR knee LT 3V IMPRESSION: Osteoarthritis of the left knee as described. Electronically signed by: Juan Oconnor MD 06/26/2024 11:11 AM EDT
== END 2024-06-25 09:13 | disposition home or self-care (01) ==
LOC: HO.HOSX 09:12
PROVIDERS: PCP Internal Medicine; Visit Provider Orthopaedic Surgery
DX: M17.12 Unilateral primary osteoarthritis, left knee (principal); M25.562 Pain in left knee
CPT/HCPCS: 73562; 99212

== ENCOUNTER 2024-06-25 09:12 | Outpatient (AMB) | payer OTHER, SELFPAY ==
--- NOTE | 2024-06-25 09:16 | MHC.OFFVIS ---
Intake Visit Reasons: OV- Left knee follow up , 05/05/22 [place] Intake Note: Alicia is a 49 year old female who presents today for a follow up of her left knee pain. Hx of Left knee 05/05/23. At her last visit we discussed that she feels she is unable to return to work and she would need to seek as disability ranking as it was believed she has reached MMI. It was also recommended that she see pain mgmt, she has had some treatments with them with no relief. X rays updated in office today. She continues to take tylenol and Motrin as needed for pain but reports minimal relief. E D Tech Required: No Allergies oxycodone [OXYCODONE] Allergy (Intermediate, Verified 06/25/24 09:18) RASH,SHAKES, shakiness, body shaking, tremors Medication List - Last Reconciled 06/25/24 by Aleja Kiser RN albuterol sulfate 90 mcg/actuation 2 puffs inhalation Q6H PRN 30 days blood pressure monitor As directed diclofenac sodium 1% (Voltaren Arthritis Pain) 4 grams topical QID PRN Lactobacillus rhamnosus GG (Culturelle) 1 cap PO DAILY levothyroxine 300 mcg PO DAILY@0600 meclizine 25 mg PO TID PRN nitrofurantoin monohyd/m-cryst 100 mg (Macrobid) 100 mg PO BID 5 days pyridoxine (vitamin B6) 100 mg PO DAILY 90 days rizatriptan 10 mg PO DAILY PRN HPI HPI OV- Left knee follow up , 05/05/22 NE: Details: Alicia comes in today with persistent left knee pain. She has had pain since she injured herself at work over 2 years ago. She has been working hard with physical therapy in his gone to pain management for injections but continues to describe with swelling and pain that prevents her from engaging in normal daily activities and from work. She describes pain over the anteromedial knee. She states stairs are extremely difficult. She can not walk for long distances and her knee swells up regularly. She has had PRP injections, electrical stimulation, viscosupplementation as well as steroids and nothing has been helpful for very long. [facility] Medical History Nephrolithiasis History of thyroid cancer Dysphagia Bile salt-induced diarrhea Hypothyroid Complex ovarian cyst Meniscus degeneration Obesity Osteoarthritis of right patellofemoral joint Headache Left knee pain Annual physical exam Pre-op examination Malpositioned IUD Hydronephrosis Fatty liver Morbid obesity Gastroenteritis Bilateral ovarian cysts Memory deficit Anserine bursitis Dawson angioma Shoulder pain, left Elevated LFTs Impaired fasting glucose Postsurgical hypothyroidism Benign essential hypertension Pericardial effusion Hypercholesterolemia Vitamin D deficiency 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 Family history of von Willebrand disease Patellar fracture Closed right ankle fracture Lumbar disc herniation History of renal calculi Vertigo Migraine Asthma Surgical History S/P laparoscopic sleeve gastrectomy Hx of laparoscopic partial gastrectomy Postoperative stitch abscess Postop check Sebaceous cyst H/O colonoscopy S/P removal of left ovary Hx of arthroscopy of left knee S/P left knee arthroscopy Hx of tubal ligation History of pubovaginal sling Hx of cystoscopy History of ankle surgery History of cholecystectomy History of bladder surgery History of thyroid surgery History of back surgery History of section Family History Daughter Von Willebrand disease Maternal Grandmother Family history of bladder cancer Family history of breast cancer Sister Family history of breast cancer Maternal Grandfather Family history of lung cancer Other Asthma Diabetes Emphysema of lung Social History Household Members: Family Housing: House Are you a primary career technical education teacher to a significant other at home: No Do you presently have visiting nurse or other home services: No Alcohol intake: never Comment: medicated, see MAR Patient Tobacco Use Status: Never used Tobacco Tobacco use type: Cigarette e-Cigarette/Vaping Use: Never Used Second Hand Smoke Exposure: No service: No Current occupational status: employed 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 Cognitive needs: No Hearing needs: No Vision needs: No Female Reproductive History Menstrual Age of Menarche: 14 Physical Exam Extrem Other: 3-130 degrees of motion Stable to varus and valgus stress Tenderness to palpation along the anteromedial joint line into the anteromedial tibial plateau. Negative Isaac's. Trace effusion Results Reviewed Results Reviewed: I personally reviewed relevant radiographs. [id number] tricompartmental osteoarthritis, left knee Chondrocalcinosis bilaterally Assessment & Plan Assessment & Plan (1) Osteoarthritis of left knee: Code(s): M17.12 - Unilateral primary osteoarthritis, left knee Category: Medical Qualifiers: Osteoarthritis type: unspecified Qualified Code(s): M17.12 - Unilateral primary osteoarthritis, left knee Plan: This is a 49-year-old woman with left knee arthritis. She is involved in workers' compensation litigation and that is pending. At this point she states that she is unable to work as she is on her feet all day. She is frustrated and feels like nothing has helped her. She has had interventions that have ranged from physical therapy all the way to arthroscopic surgery with multiple injections and pain management modalities and continues to describe discomfort. She should continue her out of work status and we will come to see me when her worker's compensation litigation clarifies her work status. From my perspective she has reached MMI. Orders: Orders XR knee LT 3V Today M25.562 - Pain in left knee Coding Level of Care Code Est Pt Level 4 (03831) Diagnoses Osteoarthritis of left knee, unspecified osteoarthritis type M17.12 Osteoarthritis type: unspecified
== END 2024-06-25 09:57 | disposition home or self-care (01) ==
PROVIDERS: PCP Internal Medicine; Visit Provider Orthopaedic Surgery
DX: M17.12 Unilateral primary osteoarthritis, left knee (principal)
CPT/HCPCS: 99214

== ENCOUNTER → 2024-06-25 09:19 | Outpatient (BNV) | payer OTHER, SELFPAY | PROVIDERS: PCP Internal Medicine; Visit Provider Radiology Diagnostic Radiology | DX: M17.12 Unilateral primary osteoarthritis, left knee (principal) | CPT/HCPCS: 73562 ==

== ENCOUNTER 2024-07-02 08:23 | Outpatient (AMB) | payer OTHER, SELFPAY ==
--- NOTE | 2024-07-02 08:08 | A.OFFVIS_ITS ---
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: No Allergies oxycodone [OXYCODONE] Allergy (Intermediate, Verified 06/25/24 09:18) RASH,SHAKES, shakiness, body shaking, tremors Medication List - Last Reconciled 07/02/24 by PEGGY Mariano albuterol sulfate 90 mcg/actuation 2 puffs inhalation Q6H PRN 30 days blood pressure monitor As directed diclofenac sodium 1% (Voltaren Arthritis Pain) 4 grams topical QID PRN Lactobacillus rhamnosus GG (Culturelle) 1 cap PO DAILY levothyroxine 300 mcg PO DAILY@0600 meclizine 25 mg PO TID PRN nitrofurantoin monohyd/m-cryst 100 mg (Macrobid) 100 mg PO BID 5 days pyridoxine (vitamin B6) 100 mg PO DAILY 90 days rizatriptan 10 mg PO DAILY PRN HPI Comments Details: This?a?48?yo female who is s/p LSG without hiatal hernia repair on?12/07/2023. Presents for 7 month post op visit. Weight today is 131 pounds, with a BMI of 24.8. There has been a 93.4 pound weight loss,(initial weight 224.4 pounds) since starting the program on 08/15/2023 reflecting a 41.6 % total body weight loss and a weight loss of 79.5 pounds since surgery (operative weight 210.5 pounds) reflecting a 37.7 % TBWL since surgery. No complaints of nausea, emesis, abdominal pain or reflux. Reports infrequent but normal bowel movements every 1-2 days. Taking womens once a day mvi She is doing well and reports feeling alonso quicker with the protein shake. Feeling great. Due to her weight loss she has had excess skin to the abdomen. She has had increased sweating and due to this she is having to shower twice daily. She has not yet noticed a rash. She has intermittent itch. She has also said that the excess skin has caused difficulty with fitting clothes. She has to wash the area 3-4 times per day to maintain hygiene. Present meal plan includes: One egg with 2 forks fulls of vegetables at 8-10, per her request add food in the morning celebrate 4 in 1, 1 scoop in 8 oz almond milk at 11-1 pure protein bar 2-3 4 pm meal w 3 forks protein and 3 forks veg Celebrate 4 in 1, 1 scoop 6-8 Drinking 48 oz water ? Exercise routine includes: gym treadmill, [address], 5 days per week stationary bike at home, [address], [address] [facility] Medical History Nephrolithiasis History of thyroid cancer Dysphagia Bile salt-induced diarrhea Hypothyroid Complex ovarian cyst Meniscus degeneration Obesity Osteoarthritis of right patellofemoral joint Headache Left knee pain Annual physical exam Pre-op examination Malpositioned IUD Hydronephrosis Fatty liver Morbid obesity Gastroenteritis Bilateral ovarian cysts Memory deficit Anserine bursitis Dawson angioma Shoulder pain, left Elevated LFTs Impaired fasting glucose Postsurgical hypothyroidism Benign essential hypertension Pericardial effusion Hypercholesterolemia Vitamin D deficiency 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 Family history of von Willebrand disease Patellar fracture Closed right ankle fracture Lumbar disc herniation History of renal calculi Vertigo Migraine Asthma Surgical History S/P laparoscopic sleeve gastrectomy Hx of laparoscopic partial gastrectomy Postoperative stitch abscess Postop check Sebaceous cyst H/O colonoscopy S/P removal of left ovary Hx of arthroscopy of left knee S/P left knee arthroscopy Hx of tubal ligation History of pubovaginal sling Hx of cystoscopy History of ankle surgery History of cholecystectomy History of bladder surgery History of thyroid surgery History of back surgery History of section Family History Daughter Von Willebrand disease Maternal Grandmother Family history of bladder cancer Family history of breast cancer Sister Family history of breast cancer Maternal Grandfather Family history of lung cancer Other Asthma Diabetes Emphysema of lung Social History Household Members: Family Housing: House Are you a primary health care / medical job titles to a significant other at home: No Do you presently have visiting nurse or other home services: No Alcohol intake: never Comment: medicated, see MAR Patient Tobacco Use Status: Never used Tobacco Tobacco use type: Cigarette e-Cigarette/Vaping Use: Never Used Second Hand Smoke Exposure: No service: No Current occupational status: employed 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 Cognitive needs: No Hearing needs: No Vision needs: No Female Reproductive History Menstrual Age of Menarche: 14 Telehealth Telehealth Telehealth Platform: Telephone Location of provider rendering services: practice address Location of patient: address on file Patient Identification confirmed using: Name, : Yes Telehealth method: voice only Patient verbally consented to treatment: Yes Patient verbally consented to billing insurance company: Yes Patient informed of any privacy concerns related to visit: Yes Minutes spent on Phone/Video with Pt.: 15 Assessment & Plan Assessment & Plan (1) S/P laparoscopic sleeve gastrectomy: Comment: 12/07/2023 Code(s): Z98.84 - Bariatric surgery status Category: Surgical Plan: Patient is doing well and maintaining her weight. She is very satisfied with her meal plan. We will continue with her current meal plan and exercise plan. We will have her return to the office in approximately 2 months and then again in November for her 1 year follow-up appointment. (2) Excess skin: Code(s): L98.7 - Excessive and redundant skin and subcutaneous tissue Category: Medical Plan: She continues to have excess skin with sweating underneath the abdominal pannus. This is causing an impact on her ADLs including requirements for increased hygiene. She is having to wash the area 2 or 3 or even 4 times per day. She has not yet developed a rash due to her diligence. She is concerned that with the upcoming warmer months this will happen. I encouraged her to text me at any time should she develop a rash.
[2024-07-02 08:09] VITALS: BMI 24.7
== END 2024-07-02 08:26 | disposition home or self-care (01) ==
LOC: HO.HBS 08:23
PROVIDERS: PCP Internal Medicine; Visit Provider Physician Assistant Surgical
DX: L98.7 Excessive and redundant skin and subcutaneous tissue (principal); Z98.84 Bariatric surgery status
CPT/HCPCS: 99213

== ENCOUNTER → 2024-07-02 08:23 | Outpatient (BNVA) | payer OTHER, SELFPAY | PROVIDERS: PCP Internal Medicine; Visit Provider Physician Assistant Surgical ==

== ENCOUNTER 2024-07-03 09:20 | Outpatient (AMB) | payer OTHER, SELFPAY ==
--- NOTE | 2024-07-03 09:25 | A.OFFPC_ITS ---
Vital Signs 07/03/24 09:26 Height 5 ft 1 in Weight 140 lb BMI 26.4 BP 122/80 Blood Pressure Location Lt brachial Position Sitting Pulse 67 Pulse Source Pulse Oximeter Temp 97.3 F Temp Source Temporal Artery Scan Pulse Oximetry (%) 98 Oxygen Delivery Method Room Air Intake Visit Reasons: [facility] 06/27 Intake Note: Patient is here for hospital discharge follow up. Patient was discharged from [facility] on 06/27/24. Drug Safety Scientist Required: No Claims Account Manager: Not Required per policy Accompanied by: Self / Same As Patient Allergies oxycodone [OXYCODONE] Allergy (Intermediate, Verified 07/03/24 09:29) RASH,SHAKES, shakiness, body shaking, tremors Medication List - Last Reconciled 07/03/24 by Terra Olvera PA-C albuterol sulfate 90 mcg/actuation 2 puffs inhalation Q6H PRN 30 days blood pressure monitor As directed diclofenac sodium 1% (Voltaren Arthritis Pain) 4 grams topical QID PRN Lactobacillus rhamnosus GG (Culturelle) 1 cap PO DAILY levothyroxine 300 mcg PO DAILY@0600 meclizine 25 mg PO TID PRN pyridoxine (vitamin B6) 100 mg PO DAILY 90 days rizatriptan 10 mg PO DAILY PRN Tobacco use date assessed: 07/03/24 Dental Screening Dental Screen Date: 04/26/24 HPI [facility] 06/27 HPI Details 49-year-old female with past medical his tory fatty liver disease, hypercholesterolemia, hypertension, hypothyroidism, impaired glucose tolerance, asthma, migraine, GERD and anemia last seen 03/[address] Pelaez coming in for hospital discharge follow up. In review of the notes patient was seen by Orthopedics 05/2024 for left knee osteoarthritis considering total knee replacement. Weight management 06/2024 doing well advised to follow up in 2 months. Patient was seen by Gynecology 05/2024 ultrasound was negative advised to follow up as needed for abnormal bleeding or pelvic pain. Urology 04/2024 ordered for ultrasound of the kidneys bilaterally and follow up in 1 year for nephrolithiasis. Presenting with symptoms related to vertebral artery stenosis following a recent visit to [facility], where she was admitted due to concerns regarding blood flow to the brain caused by arterial narrowing. Since November, she has experienced numbness and tingling in her left arm and has an MRI pending with orthopedics. Fainting when transitioning from sitting to standing has been a concern, leading to dizzy spells if she overexerts herself. She recently began taking Bendazole, which appears to have positively impacted her cancer marker levels and thyroid. [facility] Medical History Nephrolithiasis History of thyroid cancer Dysphagia Bile salt-induced diarrhea Hypothyroid Complex ovarian cyst Meniscus degeneration Obesity Osteoarthritis of right patellofemoral joint Headache Left knee pain Annual physical exam Pre-op examination Malpositioned IUD Hydronephrosis Fatty liver Morbid obesity Gastroenteritis Bilateral ovarian cysts Memory deficit Anserine bursitis Dawson angioma Shoulder pain, left Elevated LFTs Impaired fasting glucose Postsurgical hypothyroidism Benign essential hypertension Pericardial effusion Hypercholesterolemia Vitamin D deficiency 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 Family history of von Willebrand disease Patellar fracture Closed right ankle fracture Lumbar disc herniation History of renal calculi Vertigo Migraine Asthma Surgical History S/P laparoscopic sleeve gastrectomy Hx of laparoscopic partial gastrectomy Postoperative stitch abscess Postop check Sebaceous cyst H/O colonoscopy S/P removal of left ovary Hx of arthroscopy of left knee S/P left knee arthroscopy Hx of tubal ligation History of pubovaginal sling Hx of cystoscopy History of ankle surgery History of cholecystectomy History of bladder surgery History of thyroid surgery History of back surgery History of section Family History Daughter Von Willebrand disease Maternal Grandmother Family history of bladder cancer Family history of breast cancer Sister Family history of breast cancer Maternal Grandfather Family history of lung cancer Other Asthma Diabetes Emphysema of lung Social History Household Members: Family Housing: House Are you a primary critical care registered nurse to a significant other at home: No Do you presently have visiting nurse or other home services: No Alcohol intake: never Comment: medicated, see MAR Patient Tobacco Use Status: Never used Tobacco Tobacco use type: Cigarette e-Cigarette/Vaping Use: Never Used Second Hand Smoke Exposure: No service: No Current occupational status: employed Current occupation: [employer], 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 Cognitive needs: No Hearing needs: No Vision needs: No Female Reproductive History Menstrual Age of Menarche: 14 Questionnaire Thrive Questionnaire Date Thrive assessed: 04/26/24 ACACIA-7 AMB Questionnaire ACACIA-7 Date ACACIA - 7 assessed: 04/26/24 Source: Developed by Drs. Juan Vega, Tatiana Dumas, Nikolay Ling and colleagues, with an educational gia from [employer]. Review of Systems Const Denies body aches, Denies chills, Denies fever(s), Reports headache(s) and Denies poor appetite Eyes Reports no additional complaints ENT Reports dizziness and Reports headache(s) Card Denies chest pain, Reports syncope (single episode), Denies lightheadedness and Denies dyspnea Resp Denies dyspnea GI Denies abdominal pain, Reports diarrhea [place] with [place] [facility] [place] Denies nausea and Denies vomiting Reports no additional complaints Musc Reports no additional complaints and Denies abnormal gait Skin/Breast Reports system reviewed and no additional complaints, except as documented Neuro Denies abnormal gait, Reports dizziness, Reports syncope (single episode) and Reports headache(s) Psych Reports no additional complaints Physical exam (Primary Care) Tobacco/Smoking Status: Tobacco use Status Tobacco use date assessed 04/26/24 07/03/24 09:25 Patient Tobacco Use Status Never used Tobacco 07/03/24 09:25 Tobacco use type Cigarette 07/03/24 09:25 e-Cigarette/Vaping Use Never Used 07/03/24 09:25 Thrive Assessment: Date of Thrive Assessment Date Thrive assessed 04/26/24 07/03/24 09:25 Const General: cooperative, healthy appearing, comfortable and no acute distress Orientation/consciousness: patient oriented x3 HENMT Head: Yes normocephalic Ears: hearing grossly normal bilaterally General nose exam: Normal external nose present Eyes General: appearance normal, both eyes and all related structures Conjunctivae: conjunctivae normal Neck Neck: Yes full ROM and Yes no lymphadenopathy Resp Effort & Inspection: normal respiratory effort Auscultation: clear to auscultation bilaterally, no crackles, no rales, no rhonchi and no wheezes Cardio Rate: regular rate Rhythm: regular rhythm Skin General skin exam: no rashes or lesions noted Neuro General: patient oriented x3 Gait exam (Neuro): Normal gait present Extrem General: Yes normal to inspection, Yes full ROM and No edema Psych Affect: normal affect Attitude: cooperative Insight: Good insight present (Psych) Judgement: Good judgement present (Psych) Coding Level of Care Code Est Pt Level 3 (58841) Diagnoses GERD (gastroesophageal reflux disease) K21.9 Impaired fasting glucose R73.01 Benign essential hypertension I10 Vertebral artery stenosis I65.09 Assessment & Plan Assessment & Plan (1) GERD (gastroesophageal reflux disease): Code(s): K21.9 - Gastro-esophageal reflux disease without esophagitis Category: Medical Plan: Avoid trigger foods such as citrus, tomato products, soda, caffeine, spicy foods and other foods that may be irritating to your stomach. Avoid laying flat 3-4 hours after eating and elevate the head of the bed 30 degrees to prevent acid from moving into the esophagus. (2) Impaired fasting glucose: Code(s): R73.01 - Impaired fasting glucose Category: Medical Plan: Decrease the amount of carbohydrates such as pasta, bread, rice, and potatoes and limit the amount of sweets. Although fruits are generally healthy they should be eaten in moderation as they are still high in sugar. (3) Benign essential hypertension: Code(s): I10 - Essential (primary) hypertension Category: Medical Plan: Continue on current blood pressure medication. Avoid salt intake and encourage healthy diet and regular exercise. (4) Vertebral artery stenosis: Code(s): I65.09 - Occlusion and stenosis of unspecified vertebral artery Category: Medical Plan: I have advised the patient to follow up with vascular surgery to address her vertebral artery stenosis. She has been instructed to exercise caution when moving from sitting to standing to prevent dizziness and fainting. Adequate hydration is crucial in supporting her vascular health. Referral was placed to vascular surgery today. Plan to review [facility] notes once available and if plan changes addendum will be added. Plan This note was constructed using voice recognition software. While every effort has been made to ensure accuracy and health safety coordinator, still areas may have been included sometimes these areas may affect the content or meeting of the given symptoms. Total time spent caring for the patient today was 20 minutes. This includes time spent before the visit reviewing the chart, time spent during the visit, and time spent after the visit and documentation. Patient was informed and verbally consented to the use of an ambient scribe for clinic note documentation during this visit. Orders: Referrals Vascular Surgery Referral I65.09 - Occlusion and stenosis of unspecified vertebral artery Medications: Refilled albuterol sulfate 90 mcg/actuation 2 puffs inhalation Q6H 30 days PRN 8.5 grams 3RF shortness of breath or wheezing J45.909 - Unspecified asthma, uncomplicated
[2024-07-03 09:26] VITALS: BP 122/80; PULSE 67; TEMP 36.3; O2SAT 98; BMI 26.4
== END 2024-07-03 10:10 | disposition home or self-care (01) ==
LOC: HO.HMCH 09:20
PROVIDERS: PCP Internal Medicine
DX: K21.9 Gastro-esophageal reflux disease without esophagitis (principal); R73.01 Impaired fasting glucose; I10 Essential (primary) hypertension; I65.09 Occlusion and stenosis of unspecified vertebral artery

== ENCOUNTER → 2024-07-03 09:20 | Outpatient (BNVA) | payer OTHER, SELFPAY | PROVIDERS: PCP Internal Medicine | DX: E78.00 Pure hypercholesterolemia, unspecified (principal); K76.0 Fatty (change of) liver, not elsewhere classified; I10 Essential (primary) hypertension; E03.9 Hypothyroidism, unspecified; J45.909 Unspecified asthma, uncomplicated; K21.9 Gastro-esophageal reflux disease without esophagitis; R73.01 Impaired fasting glucose; I65.09 Occlusion and stenosis of unspecified vertebral artery | CPT/HCPCS: 99212 ==

== ENCOUNTER 2024-07-29 16:41 | Outpatient (REF) | payer OTHER, SELFPAY ==
--- NOTE | ~2024-07-29 | MR_ITS ---
EXAMINATION: MR ANGIOGRAPHY BRAIN WITHOUT AND WITH CONTRAST CLINICAL INFORMATION: Occlusion or embolus the vertebral artery. Syncope. Dizziness. COMPARISON: None available. TECHNIQUE: 3-D [id number]. Maximum intensity projections [place]. Total of 6.5 cc of gadolinium based given IV without reported immediate complications. FINDINGS: Anterior cerebral circulation: ICAs: No focal stenosis or abrupt cut off. MCA's: No focal stenosis or abrupt cut off. Bifurcation/trifurcation demonstrated normal vascular irregularity. ACAs: No focal stenosis or abrupt cut off. Ophthalmic arteries are patent bilaterally. Anterior communicating artery is not identified. Right posterior communicating artery is patent. Posterior cerebral circulation: V3/V4 segments: Absent enhancement on the right vertebral artery. The left vertebral artery demonstrates no focal stenosis or intimal flap. Right posterior inferior cerebellar artery is not enhanced. Left posterior inferior cerebral artery is patent. Basilar artery is patent without focal stenosis or intimal flap. Left anterior inferior cerebellar arteries patent. Superior cerebellar arteries are patent. family law specialist: Normal patency without focal stenosis or abrupt cut off. Ancillary findings: Normal patency without intraluminal filling defects within the main cerebral venous sinuses. MR/MR angio head wo/w con IMPRESSION: Occluded right V3/V4 segment. Occluded, right posterior inferior cerebellar artery. Electronically signed by: Ki Eason MD 07/30/2024 12:43 PM EDT
[2024-07-29] MEDS: gadobutroL 7.5 ML VIAL IVPUSH (17:51)
== END 2024-07-29 16:42 | disposition home or self-care (01) ==
LOC: HO.MRI 16:41
PROVIDERS: PCP Internal Medicine; Visit Provider Internal Medicine
DX: I65.09 Occlusion and stenosis of unspecified vertebral artery (principal)
CPT/HCPCS: 70546; A9585

== ENCOUNTER → 2024-07-29 16:51 | Outpatient (BNV) | payer OTHER, SELFPAY | PROVIDERS: PCP Internal Medicine; Visit Provider Radiology Diagnostic Radiology | DX: I66.3 Occlusion and stenosis of cerebellar arteries (principal) | CPT/HCPCS: 70546 ==

== ENCOUNTER 2024-08-07 14:51 | Outpatient (AMB) | payer OTHER, SELFPAY ==
--- NOTE | 2024-08-07 14:59 | A.OFFVIS_ITS ---
Vital Signs 08/07/24 15:06 Height 5 ft 1 in Weight 140 lb BMI 26.4 BP 123/83 Blood Pressure Location Rt brachial Position Sitting Pulse 78 Pulse Source Pulse Oximeter Pulse Oximetry (%) 98 Oxygen Delivery Method Room Air Intake Visit Reasons: pre colonoscopy Intake Note: Per Dr. Ray want to have patient get colonoscopy this year instead of next year due to polyps and kidney stones. Allergies oxycodone [OXYCODONE] Allergy (Intermediate, Verified 08/07/24 15:08) RASH,SHAKES, shakiness, body shaking, tremors HPI HPI pre colonoscopy: Details: Assessment & Plan (1) Tubular adenoma of colon: Comment: 11/2023 scope= 1 TA and an inflammatory polyp repeat in 3 years Code(s): D12.6 - Benign neoplasm of colon, unspecified Category: Medical Plan Because only 1 of the 3 polyps was actually adenomtous a repeat in 3 years should be sufficient. The procedure was well tolerated. The results were explained and the patient is agreeable to the follow-up interval as stated. The bowel pattern has returned to normal. Education was provided to tell any 1st degree relatives about their findings to be sure that they are screened by age 45. Educated that they will be put on a recall list when it is time for their repeat scope but should they move out of state or away from the hospital they will need to remember along with their primary to repeat the procedure in a timely fashion to avoid any adverse complications. She just had gastric bypass surgery! She has lost about 49 lb and this has caused her some constipation but she does not believe this is a problem after her colonoscopy and she continues to work on this with her bariatric team. I let her she can always return to us if she is having troubles that do not even out. TODAYS VISIT Because only 1 of her polyps were adenomatous, she is here too early for repeat colonoscopy. She would be due in 2026. She has had multiple health problems since I saw her, she has had episodes of syncope and being found unconscious and it was found she had both a thin artery in her neck and a blood clot in the brain. She will be seeing vascular about this. Also, she just had bariatric surgery for gastric bypass. I explain to her how the determination is made for colonoscopy follow up, and it would not be recommended at this time because insurance would not pay for it, and she has other more concerning health problems to attend to that would make her a poor operative risk. She is agreeable to coming back in 2026 when she will be due r/t the sessile nature of her 6-8mm TA. The other polyps were not actual polyps by biopsy. [facility] Medical History (Updated 08/06/24 @ 15:56 by Tamela Pelaez MD) Nephrolithiasis History of thyroid cancer Dysphagia Bile salt-induced diarrhea Hypothyroid Complex ovarian cyst Meniscus degeneration Obesity Osteoarthritis of right patellofemoral joint Headache Left knee pain Annual physical exam Pre-op examination Malpositioned IUD Hydronephrosis Fatty liver Morbid obesity Gastroenteritis Bilateral ovarian cysts Memory deficit Anserine bursitis Dawson angioma Shoulder pain, left Elevated LFTs Impaired fasting glucose Postsurgical hypothyroidism Benign essential hypertension Pericardial effusion Hypercholesterolemia Vitamin D deficiency 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 Family history of von Willebrand disease Patellar fracture Closed right ankle fracture Lumbar disc herniation History of renal calculi Vertigo Migraine Asthma Surgical History S/P laparoscopic sleeve gastrectomy Hx of laparoscopic partial gastrectomy Postoperative stitch abscess Postop check Sebaceous cyst H/O colonoscopy S/P removal of left ovary Hx of arthroscopy of left knee S/P left knee arthroscopy Hx of tubal ligation History of pubovaginal sling Hx of cystoscopy History of ankle surgery History of cholecystectomy History of bladder surgery History of thyroid surgery History of back surgery History of section Family History Daughter Von Willebrand disease Maternal Grandmother Family history of bladder cancer Family history of breast cancer Sister Family history of breast cancer Maternal Grandfather Family history of lung cancer Other Asthma Diabetes Emphysema of lung Social History Household Members: Family Housing: House Are you a primary critical care nurse specialist to a significant other at home: No Do you presently have visiting nurse or other home services: No Alcohol intake: never Comment: medicated, see MAR Patient Tobacco Use Status: Never used Tobacco Tobacco use type: Cigarette e-Cigarette/Vaping Use: Never Used Second Hand Smoke Exposure: No service: No Current occupational status: employed 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 Cognitive needs: No Hearing needs: No Vision needs: No Female Reproductive History Menstrual Age of Menarche: 14 Review of Systems Card Reports syncope Neuro Reports syncope and Reports paresthesias Physical Exam Const General: cooperative, healthy appearing and no acute distress Assessment & Plan Assessment & Plan (1) Tubular adenoma of colon: Comment: 11/2023 scope= 1 TA and an inflammatory polyp repeat in 3 years Code(s): D12.6 - Benign neoplasm of colon, unspecified Category: Medical Plan Because only 1 of her polyps were adenomatous, she is here too early for repeat colonoscopy. She would be due in 2026. She has had multiple health problems since I saw her, she has had episodes of syncope and being found unconscious and it was found she had both a thin artery in her neck and a blood clot in the brain. She will be seeing vascular about this. Also, she just had bariatric surgery for gastric bypass. I explain to her how the determination is made for colonoscopy follow up, and it would not be recommended at this time because insurance would not pay for it, and she has other more concerning health problems to attend to that would make her a poor operative risk. She is agreeable to coming back in 2026 when she will be due r/t the sessile nature of her 6-8mm TA. The other polyps were not actual polyps by biopsy. Coding Level of Care Code Est Pt Level 3 (78314) Diagnoses Tubular adenoma of colon D12.6
[2024-08-07 15:06] VITALS: BP 123/83; PULSE 78; O2SAT 98; BMI 26.4
== END 2024-08-07 15:28 | disposition home or self-care (01) ==
LOC: HO.HGI 14:52
PROVIDERS: PCP Internal Medicine; Visit Provider Nurse Practitioner
DX: D12.6 Benign neoplasm of colon, unspecified (principal)
CPT/HCPCS: 99213

== ENCOUNTER → 2024-08-07 14:51 | Outpatient (BNVA) | payer OTHER, SELFPAY | PROVIDERS: PCP Internal Medicine; Visit Provider Nurse Practitioner | DX: D12.6 Benign neoplasm of colon, unspecified (principal) | CPT/HCPCS: 99212 ==

== ENCOUNTER 2024-09-06 10:08 | Outpatient (AMB) | payer OTHER, SELFPAY ==
--- NOTE | 2024-09-06 08:19 | MHC.OFFVISWM ---
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 Allergies oxycodone [OXYCODONE] Allergy (Intermediate, Verified 08/07/24 15:08) RASH,SHAKES, shakiness, body shaking, tremors Medication List - Last Reconciled 09/06/24 by PEGGY Mariano albuterol sulfate 90 mcg/actuation 2 puffs inhalation Q6H PRN 30 days blood pressure monitor As directed clotrimazole 1% (Antifungal (clotrimazole)) 1 appl topical BID diclofenac sodium 1% (Voltaren Arthritis Pain) 4 grams topical QID PRN Lactobacillus rhamnosus GG (Culturelle) 1 cap PO DAILY levothyroxine 300 mcg PO DAILY@0600 meclizine 25 mg PO TID PRN pyridoxine (vitamin B6) 100 mg PO DAILY 90 days rizatriptan 10 mg PO DAILY PRN HPI Comments Details: This?a?49?yo female who is s/p LSG without hiatal hernia repair on?12/07/2023. Presents for 9 month post op visit. Weight today is 131.2 pounds, with a BMI of 24.8. There has been a 93.2 pound weight loss,(initial weight 224.4 pounds) since starting the program on 08/15/2023 reflecting a 41.6 % total body weight loss and a weight loss of 79.3 pounds since surgery (operative weight 210.5 pounds) reflecting a 37.7 % TBWL since surgery. No complaints of nausea, emesis, abdominal pain or reflux. Reports infrequent but normal bowel movements every 1-2 days. Taking womens once a day mvi She states she has had episodes of syncope, she went to the emergency room and found to have occlusive disease in her head and neck. She has been referred to vascular for further imaging studies. She additionally was found to have deteriorating cervical spine disease for which she is undergoing surgery this coming Tuesday. Due to her weight loss she has had excess skin to the abdomen. She has had increased sweating and due to this she is having to shower twice daily. She has noticed a rash to the skin under her abdomen last week. She describes it as itchy, red, and irritating. She does not notice odor. She has been using bacitracin without any improvement. She has also said that the excess skin has caused difficulty with fitting clothes. She has to wash the area 3-4 times per day to maintain hygiene. Present meal plan includes: One egg with 2 forks fulls of vegetables at 8-10, celebrate 4 in 1, 1 scoop in 8 oz almond milk at 11-1 pure protein bar 2-3 4 pm meal w 3 forks protein and 3 forks veg Celebrate 4 in 1, 1 scoop 6-8 Drinking 50-60 oz water ? Exercise routine includes: yoga mat at home stationary bike at home, 400-800 stacey, 3 x per day, 5 days per week PFSH Medical History Nephrolithiasis History of thyroid cancer Dysphagia Bile salt-induced diarrhea Hypothyroid Complex ovarian cyst Meniscus degeneration Obesity Osteoarthritis of right patellofemoral joint Headache Left knee pain Annual physical exam Pre-op examination Malpositioned IUD Hydronephrosis Fatty liver Morbid obesity Gastroenteritis Bilateral ovarian cysts Memory deficit Anserine bursitis Dawson angioma Shoulder pain, left Elevated LFTs Impaired fasting glucose Postsurgical hypothyroidism Benign essential hypertension Pericardial effusion Hypercholesterolemia Vitamin D deficiency 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 Family history of von Willebrand disease Patellar fracture Closed right ankle fracture Lumbar disc herniation History of renal calculi Vertigo Migraine Asthma Surgical History S/P laparoscopic sleeve gastrectomy Hx of laparoscopic partial gastrectomy Postoperative stitch abscess Postop check Sebaceous cyst H/O colonoscopy S/P removal of left ovary Hx of arthroscopy of left knee S/P left knee arthroscopy Hx of tubal ligation History of pubovaginal sling Hx of cystoscopy History of ankle surgery History of cholecystectomy History of bladder surgery History of thyroid surgery History of back surgery History of section Family History Daughter Von Willebrand disease Maternal Grandmother Family history of bladder cancer Family history of breast cancer Sister Family history of breast cancer Maternal Grandfather Family history of lung cancer Other Asthma Diabetes Emphysema of lung Social History Household Members: Family Housing: House Are you a primary career professional to a significant other at home: No Do you presently have visiting nurse or other home services: No Alcohol intake: never Comment: medicated, see MAR Patient Tobacco Use Status: Never used Tobacco Tobacco use type: Cigarette e-Cigarette/Vaping Use: Never Used Second Hand Smoke Exposure: No service: No Current occupational status: employed 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 Cognitive needs: No Hearing needs: No Vision needs: No Female Reproductive History Menstrual Age of Menarche: 14 Physical Exam Vital Signs: BMI result Body Mass Index 24.8 Telehealth Telehealth Telehealth Platform: Telephone Location of provider rendering services: practice address Location of patient: address on file Patient Identification confirmed using: Name, : Yes Telehealth method: voice only Patient verbally consented to treatment: Yes Patient verbally consented to billing insurance company: Yes Patient informed of any privacy concerns related to visit: Yes Minutes spent on Phone/Video with Pt.: 15 Assessment & Plan Assessment & Plan (1) S/P laparoscopic sleeve gastrectomy: Comment: 12/07/2023 Code(s): Z98.84 - Bariatric surgery status Category: Surgical Plan: Overall, patient has done extremely well. She is very satisfied with her weight loss. She unfortunately has uncovered several health issues including occlusive vascular disease and degenerative disc disease. She is having this addressed by vascular surgery and Neurosurgery. She will continue to exercise as she is able. Continue her meal plan. Follow-up in clinic as directed. (2) Excess skin: Code(s): L98.7 - Excessive and redundant skin and subcutaneous tissue Category: Medical Plan: Given her 93.2 lb weight loss or 41.6 % total body weight loss, she has developed excess skin of the abdomen. This has caused irritation and rash as well as negative impact on her ADLs. She is having to increase her hygiene significantly, especially with the warmer months. We will prescribe topical antifungal cream. We will continue to monitor closely as she may require medically necessary skin removal surgery. Medications: New clotrimazole 1% (Antifungal (clotrimazole)) 1 appl topical BID 45 grams 3RF
[2024-09-06 08:20] VITALS: BMI 24.8
== END 2024-09-06 10:08 | disposition home or self-care (01) ==
LOC: HO.HBS 10:08
PROVIDERS: PCP Internal Medicine; Visit Provider Physician Assistant Surgical
DX: L98.7 Excessive and redundant skin and subcutaneous tissue (principal); Z98.84 Bariatric surgery status
CPT/HCPCS: 99213

== ENCOUNTER → 2024-09-06 10:08 | Outpatient (BNVA) | payer OTHER, SELFPAY | PROVIDERS: PCP Internal Medicine; Visit Provider Physician Assistant Surgical | DX: Z98.84 Bariatric surgery status (principal); L98.7 Excessive and redundant skin and subcutaneous tissue | CPT/HCPCS: 99212 ==

== ENCOUNTER 2024-10-09 09:57 | Outpatient (AMB) | payer OTHER, SELFPAY ==
--- NOTE | 2024-10-09 10:00 | A.OFFPC_ITS ---
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 Required: No Accompanied by: Self / Same As Patient Allergies oxycodone (OXYCODONE) Allergy (Intermediate, Verified 10/09/24 10:04) RASH,SHAKES, shakiness, body shaking, tremors Medication List - Last Reconciled 10/09/24 by Tamela Pelaez MD albuterol sulfate 90 mcg/actuation 2 puffs inhalation Q6H PRN 30 days ascorbic acid (vitamin C) mg PO blood pressure monitor As directed cholecalciferol (vitamin D3) 25 mcg PO DAILY clotrimazole 1% (Antifungal (clotrimazole)) 1 appl topical BID diclofenac sodium 1% (Voltaren Arthritis Pain) 4 grams topical QID PRN Lactobacillus rhamnosus GG (Culturelle) 1 cap PO DAILY levothyroxine 300 mcg PO DAILY@0600 meclizine 25 mg PO TID PRN Held on 12/08/23. Instructions: Resume on 12/12/23. pyridoxine (vitamin B6) 100 mg PO DAILY 90 days rizatriptan 10 mg PO DAILY PRN Held on 12/08/23. Instructions: Resume on 12/15/23. vitamin E (dl, acetate) 45 mg PO DAILY Tobacco use date assessed: 07/03/24 Dental Screening Dental Screen Date: 04/26/24 HPI Annual Exam HPI Details Cervical surgery done Dr. SNELL, ADCF done . Dr. Weldon Neurosurgeon also CT angio for the stenosis. MRI 09/13/2024 showing slow flow prox sever s tenosis. PAtient saji frustrated with not getting any answers [facility] Medical History (Updated 10/09/24 @ 10:39 by Tamela Pelaez MD) Annual physical exam Nephrolithiasis History of thyroid cancer Dysphagia Bile salt-induced diarrhea Hypothyroid Complex ovarian cyst Meniscus degeneration Obesity Osteoarthritis of right patellofemoral joint Headache Left knee pain Pre-op examination Malpositioned IUD Hydronephrosis Fatty liver Morbid obesity Gastroenteritis Bilateral ovarian cysts Memory deficit Anserine bursitis Dawson angioma Shoulder pain, left Elevated LFTs Impaired fasting glucose Postsurgical hypothyroidism Benign essential hypertension Pericardial effusion Hypercholesterolemia Vitamin D deficiency 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 Family history of von Willebrand disease Patellar fracture Closed right ankle fracture Lumbar disc herniation History of renal calculi Vertigo Migraine Asthma Surgical History S/P laparoscopic sleeve gastrectomy Hx of laparoscopic partial gastrectomy Postoperative stitch abscess Postop check Sebaceous cyst H/O colonoscopy S/P removal of left ovary Hx of arthroscopy of left knee S/P left knee arthroscopy Hx of tubal ligation History of pubovaginal sling Hx of cystoscopy History of ankle surgery History of cholecystectomy History of bladder surgery History of thyroid surgery History of back surgery History of section Family History Daughter Von Willebrand disease Maternal Grandmother Family history of bladder cancer Family history of breast cancer Sister Family history of breast cancer Maternal Grandfather Family history of lung cancer Other Asthma Diabetes Emphysema of lung Social History Household Members: Family Housing: House Are you a primary women's health care nurse practitioner to a significant other at home: No Do you presently have visiting nurse or other home services: No Alcohol intake: never Comment: medicated, see MAR Patient Tobacco Use Status: Never used Tobacco e-Cigarette/Vaping Use: Never Used Second Hand Smoke Exposure: No service: No Current occupational status: employed 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/hazards: No Cognitive needs: No Hearing needs: No Vision needs: No Female Reproductive History Menstrual Age of Menarche: 14 Questionnaire PHQ-9 Over the last 2 weeks, how often have you been bothered by any of the following problems? 1. Little interest or pleasure in doing things: not at all 2. Feeling down, depressed, or hopeless: not at all 3. Trouble falling or staying asleep, or sleeping too much: not at all 4. Feeling tired or having little energy: not at all 5. Poor appetite or overeating: not at all 6. Feeling bad about yourself - or that you are a failure or have let yourself or your family down: not at all 7. Trouble concentrating on things, such as reading the newspaper or watching television: not at all 8. Moving or speaking so slowly that other people could have noticed. Or the opposite - being so fidgety or restless that you have been moving around a lot more than usual: not at all 9. Thoughts that you would be better off or of hurting yourself in some way: not at all Total score: 0 Depression Screening Interpretation: Negative Depression Screening Done: Yes Source: Developed by Drs. Juan Vega, Tatiana Dumas, Nikolay Ling and colleagues, with an educational gia from [employer]. Thrive Questionnaire Date Thrive assessed: 10/09/24 I am a: Patient What is your living situation today?: I have a steady place to live Within the past 12 months, did the food you bought not last and you didn't have the money to get more?: Never true Within the past 12 months, did you worry whether your food would run out before you got money to buy more?: Never true Do you have trouble paying for medicines?: No Do you have trouble getting transportation to medical appointments?: No Do you have trouble paying your heating and electricity bill?: No Do you have trouble taking care of your child, family member or friend?: No Do you have trouble with day-to-day activities such as bathing, preparing meals, shopping, managing finances, etc.?: No Are you currently unemployed and looking for a job?: No Are you interested in more education?: No Please select the resources that you would like help with: None Currently or been in a relationship where the following occur: No concerns reported THRIVE Score: 0 AUDIT C Alcohol Use Questionnaire (AUDIT-C) 1. How often do you have a drink containing alcohol?: Never Total Score: 0 ACACIA-7 AMB Questionnaire ACACIA-7 Date ACACIA - 7 assessed: 10/09/24 Feeling nervous, anxious, or on edge: 0 = Not at all Not being able to stop or control worryin = Not at all Worrying too much about different things: 0 = Not at all Trouble relaxin = Not at all Being so restless that it is hard to sit still: 0 = Not at all Becoming easily annoyed or irritable: 0 = Not at all Feeling afraid as if something awful might happen: 0 = Not at all Total ACACIA-7 score (0-4 normal; 5-9 mild; 10-14 moderate; 15-21 severe): 0 Source: Developed by Drs. Juan Vega, Tatiana Dumas, Nikolay iLng and colleagues, with an educational gia from [employer]. Review of Systems Const Denies poor appetite and Denies weakness Eyes Denies no additional complaints ENT Reports Normal hearing present, Denies dizziness, Denies nasal congestion, Denies tinnitus and Denies sore throat Card Denies chest pain, Denies syncope, Denies rapid heart rate and Denies dyspnea Resp Denies cough and Denies dyspnea GI Denies change in stool character, Reports constipation, Denies diarrhea, Denies nausea and Denies vomiting Denies urinary frequency, Denies difficulty voiding and Denies dysuria Neuro Reports Normal hearing present, Denies confusion, Denies dizziness, Denies syncope and Denies weakness Psych Denies confusion Physical exam (Primary Care) Vital Signs: Last Vital Signs Pulse 65 10/09/24 10:02 BP 122/86 10/09/24 10:02 Pulse Ox 99 10/09/24 10:02 Oxygen Delivery Method Room Air 10/09/24 10:02 BMI result Body Mass Index 28.7 Tobacco/Smoking Status: Tobacco use Status Tobacco use date assessed 07/03/24 10/09/24 10:08 Patient Tobacco Use Status Never used Tobacco 10/09/24 10:08 Tobacco use type 10/09/24 10:08 e-Cigarette/Vaping Use Never Used 10/09/24 10:08 PHQ-9: PHQ-9 Score PHQ-9: Total score 0 10/09/24 10:40 Depression Screening Interpretation: Negative Thrive Assessment: Date of Thrive Assessment Date Thrive assessed 10/09/24 10/09/24 10:08 Currently or been in a relationship where the following occur: No concerns reported Const General: No confusion Orientation/consciousness: No confusion HENMT Head: Yes normocephalic Ears: external ears normal and TM's normal bilaterally Face and sinus: Yes normal facial exam Mouth: moist mucous membranes Throat: Yes tonsils normal Eyes Conjunctivae: conjunctivae normal Pupils: Equal, round and reactive pupils present and Pupil accommodation reflex normal Direct Ophthalmoscopy: normal light reflex Neck Neck: No lymphadenopathy Thyroid: Thyroid normal Chest Chest palpation & inspection: normal inspection of the chest Resp Effort & Inspection: normal respiratory effort and no audible wheezes Auscultation: clear to auscultation bilaterally, no crackles, no wheezes and lung sounds not diminished Cardio Rate: regular rate Rhythm: regular rhythm Peripheral pulses: radial pulses present and dorsalis pedis present GI Palpation (GI): no masses Auscultation: normal bowel sounds and normoactive bowel sounds Rectal Exam - Female: deferred Skin General skin exam: no rashes or lesions noted Rashes: no rashes Neuro General: No confusion Cranial nerves: Yes Equal, round and reactive pupils present and Yes Normal hearing present Cognition (Neuro): normal cognition Gait exam (Neuro): Normal gait present Motor exam (neuro): 5/5 motor strength present throughout Deep tendon reflexes (DTR's): Right brachioradialis reflex intensity grade: 2+, Left brachioradialis reflex intensity grade: 2+, Right patellar reflex intensity grade: 2+ and Left patellar reflex intensity grade: 2+ Extrem General: No edema Coding Level of Care Code Est Pt Prev Care 40-64y(33944) Diagnoses Annual physical exam Z00.00 Hypercholesterolemia E78.00 S/P laparoscopic sleeve gastrectomy Z98.84 Postsurgical hypothyroidism E89.0 Impaired fasting glucose R73.01 GERD (gastroesophageal reflux disease) K21.9 History of thyroid cancer Z85.850 Vertebral artery stenosis I65.09 Assessment & Plan Assessment & Plan (1) Annual physical exam: Code(s): Z00.00 - Encounter for general adult medical examination without abnormal findings Category: Medical Plan: Patient is advised to eat healthy, keep well hydrated, keep active and have adequate sleep. (2) Hypercholesterolemia: Code(s): E78.00 - Pure hypercholesterolemia, unspecified Category: Medical Plan: Avoid fried foods, chicken skin, eggs, butter margarine, pastries and meat. Be it pork or beef they have a lot of cholesterol continue to monitor (3) S/P laparoscopic sleeve gastrectomy: Comment: 12/07/2023 Code(s): Z98.84 - Bariatric surgery status Category: Surgical Plan: Continue to follow-up with bariatric surgery (4) Postsurgical hypothyroidism: Comment: S/P thyroidectomy by Dr. Dalton in 2005 Code(s): E89.0 - Postprocedural hypothyroidism Category: Medical Plan: Continue with thyroid medication (5) Impaired fasting glucose: Code(s): R73.01 - Impaired fasting glucose Category: Medical Plan: Decrease the amount of carbohydrate intake, pasta, bread, rice and potatoes are all sugar and that is aside from all the sweet stuff, remember that fruits are good but they are Sweet also. (6) GERD (gastroesophageal reflux disease): Code(s): K21.9 - Gastro-esophageal reflux disease without esophagitis Category: Medical Plan: Avoid the foods that causes that usually spicy foods, tomato products, juices, coffee, soda and foods that your sensitive to. After eating do not lie down, allow 3-4 hours before in lie down. And keep the head of bed above 30 degrees to avoid the acid from going up. (7) History of thyroid cancer: Comment: Dr. Arash Perez Code(s): Z85.850 - Personal history of malignant neoplasm of thyroid Category: Medical Plan: Continue to follow-up with endocrinology (8) Vertebral artery stenosis: Comment: July 2024Occluded right V3/V4 segment. Occluded, right posterior inferior cerebellar artery. Code(s): I65.09 - Occlusion and stenosis of unspecified vertebral artery Category: Medical Plan: Continue to monitor. Will reach out to the vascular surgeon Plan History of Present Illness The patient is a 49-year-old female presenting for an annual physical examination and preventative care. She has a history of hypertension, hypercholesterolemia, and hypothyroidism following thyroid cancer, for which she underwent a thyroidectomy in 2005. Her asthma is well-controlled, and she reports good exercise tolerance. In November 2023, she underwent a laparoscopic sleeve gastrectomy for weight management. She follows up regularly for weight management and has been advised to continue monitoring her progress. A CT scan of the cervical spine in May 2024 showed degenerative changes with decreased height in the C5-C6 intervertebral disc. Additionally, an MRI in July 2024 revealed occlusion of the V3 V4 segment of the right vertebral artery and the right posterior inferior cerebellar artery. Her last blood work in December 2023 showed normal blood counts and cholesterol levels with an LDL of 123 mg/dL. She is due for a mammogram and a colonoscopy in 2026 as part of her preventative care. Health Maintenance - Mammogram due - Colonoscopy scheduled for 2026 Social History - Exercise: Reports good tolerance and regular follow-up for weight management Review of Systems - General: Denies fever, nausea, vomiting - Respiratory: Denies shortness of breath, chest pain, heartburn - Neurological: Denies dizziness, reports no issues with hearing - Gastrointestinal: Reports normal bowel movements, denies swallowing difficulties - Genitourinary: Reports nocturia 1-2 times per night Physical Exam General: Cooperative, healthy appearing, comfortable, no acute distress and well developed Orientation: Patient oriented x3 Limitations: Yes, limitations due to spine procedure; no bending, no twisting, no house cleaning, no heavy lifting Head: Normal to inspection Ears: Hearing grossly normal bilaterally Nose: Normal external nose present Face and sinus: Normal facial exam Eyes: Appearance normal, both eyes and all related structures Neck: Normal visual inspection and Yes full ROM Respiratory: Normal respiratory effort and able to speak in complete sentences. Clear to auscultation bilaterally Cardiovascular: Regular rate and rhythm. Normal S1 and S2 GI: Normal to inspection. Soft to palpation and nontender Skin: No rashes or lesions noted Neuro: Patient oriented x3 Extremities: Normal to inspection Results - CT of cervical spine (May 2024): Degenerative changes, decreased height in C5-C6 intervertebral disc - MRI (July 2024): Occlusion of V3 V4 segment of right vertebral artery and right posterior inferior cerebellar artery - Blood work (December 2023): Normal blood counts, LDL 123 mg/dL Plan The patient will continue to monitor her blood pressure and cholesterol levels, with regular follow-ups for her hypertension and hypercholesterolemia. She is advised to maintain her thyroid medication regimen and follow up with endocrinology for her hypothyroidism. For her asthma, she should continue using her albuterol inhaler as needed and monitor her symptoms. The patient should continue her weight management program and follow up with bariatric surgery as planned. Preventative care measures include scheduling a mammogram and a colonoscopy in 2026. She should also have her thyroid levels retested and continue monitoring her blood sugar levels. Patient was informed and verbally consented to the use of an ambient scribe for clinic note documentation during this visit. Discussion Notes I discussed with the patient the importance of maintaining her current medication regimen for hypertension, hypercholesterolemia, and hypothyroidism. We reviewed her asthma management plan, emphasizing the use of her albuterol inhaler as needed. We also discussed the need for regular follow-ups for her weight management and the importance of scheduling her mammogram and colonoscopy as part of her preventative care. Patient Instructions - Continue taking all prescribed medications as directed. - Use albuterol inhaler as needed for asthma symptoms. - Follow up with bariatric surgery and endocrinology as scheduled. - Schedule mammogram and colonoscopy as part of preventative care. - Monitor blood pressure, cholesterol, and blood sugar levels regularly. Orders: Orders Comprehensive Met. Panel Today R73.01 - Impaired fasting glucose Lipid Panel Today E78.00 - Pure hypercholesterolemia, unspecified, R73.01 - Impaired fasting glucose Vitamin B12 and Folate Today R73.01 - Impaired fasting glucose Ferritin Today R73.01 - Impaired fasting glucose Vitamin D 25-OH Total Today R73.01 - Impaired fasting glucose Hemoglobin A1c Today R73.01 - Impaired fasting glucose Complete Blood Count Auto Diff Today R73.01 - Impaired fasting glucose Thyroid Stimulating Hormone Today R73.01 - Impaired fasting glucose Free T4 (Free Thyroxine) Today R73.01 - Impaired fasting glucose IRON PROFILE Today R73.01 - Impaired fasting glucose Reticulocyte Count Today R73.01 - Impaired fasting glucose
[2024-10-09 10:02] VITALS: BP 122/86; PULSE 65; O2SAT 99; BMI 28.7
== END 2024-10-09 10:59 | disposition home or self-care (01) ==
LOC: HO.HMCH 09:58
PROVIDERS: PCP Internal Medicine; Visit Provider Internal Medicine
DX: Z00.00 Encounter for general adult medical examination without abnormal findings (principal); E78.00 Pure hypercholesterolemia, unspecified; Z98.84 Bariatric surgery status; E89.0 Postprocedural hypothyroidism; R73.01 Impaired fasting glucose; K21.9 Gastro-esophageal reflux disease without esophagitis; Z85.850 Personal history of malignant neoplasm of thyroid; I65.09 Occlusion and stenosis of unspecified vertebral artery

== ENCOUNTER → 2024-10-09 09:57 | Outpatient (BNVA) | payer OTHER, SELFPAY | PROVIDERS: PCP Internal Medicine; Visit Provider Internal Medicine | DX: Z00.00 Encounter for general adult medical examination without abnormal findings (principal); E78.00 Pure hypercholesterolemia, unspecified; E89.0 Postprocedural hypothyroidism; R73.01 Impaired fasting glucose; K21.9 Gastro-esophageal reflux disease without esophagitis; I65.09 Occlusion and stenosis of unspecified vertebral artery; I10 Essential (primary) hypertension; Z98.84 Bariatric surgery status; Z85.850 Personal history of malignant neoplasm of thyroid | CPT/HCPCS: 99396 ==

== ENCOUNTER 2024-10-10 08:46 | Outpatient (REF) | payer OTHER, SELFPAY ==
[2024-10-10 09:03] LABS: MANUAL DIFF FLAG NO
[2024-10-10 09:13] LABS: Hematocrit 37.5 % (37.0-47.0); Hemoglobin 12.7 g/dl (12.0-16.0); Imm Gran Abs Auto 0.03 X10*3/uL (0.00-0.03); Imm Gran Pct Auto 0.5 % (0.0-0.4); Lymphocytes Absolute Auto 2.0 X10*3/uL (1.2-4.9); Mean Corpuscular HGB Conc 33.9 g/dl (31.0-35.0); Mean Corpuscular Hemoglobin 31.2 pg (27.0-33.0); Mean Corpuscular Volume 92.1 fL (80.0-98.0); NRBC Abs Auto 0.000 X10*3/uL (0.0-0.012); NRBC Pct Auto 0.0 /100WBC (0.0-0.2); Platelet Count 282 X10*3/uL (160-400); Red Blood Count 4.07 X10*6/uL (4.20-5.50); Reticulocytes Absolute 0.076 X10*6/uL (0.026-0.095); White Blood Count 5.5 X10*3/uL (4.8-10.8)
[2024-10-10 09:24] LABS: Hemoglobin A1C 102.5337 umol/L; Total Hemoglobin (HGBA1C) 3315.2656 umol/L
[2024-10-10 09:56] LABS: Alanine Aminotransferase 95 U/L (0-31); Albumin Level 4.5 g/dL (3.5-5.0); Alkaline Phosphatase 67 U/L (39-117); Anion Gap 11 (12-20); Aspartate Amino Transferase 63 U/L (5-31); Blood Urea Nitrogen 18 mg/dL (9-16); Calcium 9.1 mg/dL (8.4-10.2); Carbon Dioxide 30 mmol/L (22-29); Chloride 102 mmol/L (96-108); Cholesterol 225 mg/dL (<200); Estimated Glomerular Filt Rate > 60; HDL Cholesterol 53 mg/dL (>40); Iron 73 mcg/dL (30-160); Percent Iron Saturation 27 % (15-50); Potassium 4.4 mmol/L (3.3-5.1); Sodium 139 mmol/L (135-145); Total Iron Binding Capacity 273 mcg/dL (228-428); Total Protein 7.1 g/dL (6.5-8.0); Triglycerides 93 mg/dL (<150); Unsaturated Iron Binding 200 ug/dL
[2024-10-10 10:13] LABS: Folate 13.6 ng/mL (> or = 4.0); Vitamin B12 642 pg/mL (200-900)
[2024-10-10 10:14] LABS: Ferritin 81 ng/mL (10-250); Free T4 (Free Thyroxine) < 0.42 ng/dL (0.71-1.85); Thyroid Stimulating Hormone 82.52 uIU/mL (0.32-4.0)
== END 2024-10-10 08:47 | disposition home or self-care (01) ==
LOC: HO.LAB 08:46
PROVIDERS: PCP Internal Medicine; Visit Provider Internal Medicine
DX: I65.09 Occlusion and stenosis of unspecified vertebral artery (principal); E78.00 Pure hypercholesterolemia, unspecified; R73.01 Impaired fasting glucose
CPT/HCPCS: 36415; 80053; 80061; 82306; 82607; 82728; 82746; 83036; 83540; 84439; 84443; 85025; 85045

== ENCOUNTER 2024-11-22 08:31 | Outpatient (AMB) | payer OTHER, SELFPAY ==
--- NOTE | 2024-11-22 08:24 | MHC.OFFVISWM ---
VS Expanded 11/22/24 08:27 Height 5 ft 1 in Weight 130 lb 8 oz BMI 24.7 Body Fat % 29.1 Fat Free Mass 92.8 Visceral Fat Rating 8 Body Water % 48.7 Muscle Mass/Score 87.2 Basal Metabolic Rate/Score 1,288 Intake Visit Reasons: TV PO LSG 12/07/23 Insurance Billing Specialist Required: No Allergies oxycodone (OXYCODONE) Allergy (Intermediate, Verified 10/09/24 10:04) RASH,SHAKES, shakiness, body shaking, tremors Medication List - Last Reconciled 11/22/24 by PEGGY Mariano albuterol sulfate 90 mcg/actuation 2 puffs inhalation Q6H PRN 30 days ascorbic acid (vitamin C) mg PO blood pressure monitor As directed cholecalciferol (vitamin D3) 25 mcg PO DAILY clotrimazole 1% (Antifungal (clotrimazole)) 1 appl topical BID diclofenac sodium 1% (Voltaren Arthritis Pain) 4 grams topical QID PRN Lactobacillus rhamnosus GG (Culturelle) 1 cap PO DAILY levothyroxine 300 mcg PO DAILY@0600 meclizine 25 mg PO TID PRN Held on 12/08/23. Instructions: Resume on 12/12/23. pyridoxine (vitamin B6) 100 mg PO DAILY 90 days rizatriptan 10 mg PO DAILY PRN Held on 12/08/23. Instructions: Resume on 12/15/23. vitamin E (dl, acetate) 45 mg PO DAILY HPI Comments Details: This?a?49?yo female who is s/p LSG without hiatal hernia repair on?12/07/2023. Presents for 1 year post op visit. Weight today is 130.8 pounds, with a BMI of 24.7. There has been a 93.6 pound weight loss,(initial weight 224.4 pounds) since starting the program on 08/15/2023 reflecting a 41.8 % total body weight loss and a weight loss of 79.7 pounds since surgery (operative weight 210.5 pounds) reflecting a 37.9 % TBWL since surgery. No complaints of nausea, emesis, abdominal pain or reflux. Reports infrequent but normal bowel movements every 1-2 days. Taking womens once a day mvi She states she has had episodes of syncope, she went to the emergency room and found to have occlusive disease in her head and neck. She has been referred to vascular for further imaging studies. She additionally was found to have deteriorating cervical spine disease and she had surgery 09/14/24. 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 11/16/24. She states she doesn't notice any difference. She states she had introperative hypoxia, requiring extended post op recovery. Due to her weight loss she has had excess skin to the abdomen. She has had increased sweating and due to this she is having to shower twice daily. She has noticed a rash to the skin under her abdomen last week. She describes it as itchy, red, and irritating. She does not notice odor. She has been using bacitracin without any improvement. She has also said that the excess skin has caused difficulty with fitting clothes. She has to wash the area 3-4 times per day to maintain hygiene. Labs done in September showed elevated TSH but her labs from her apartment community manager 11/01/24 in [place] was tsh 3.59, T4 1.15 Present meal plan includes: One egg with 2 forks fulls of vegetables at 8-10, celebrate 4 in 1, 1 scoop in 8 oz almond milk at 11-1 pure protein bar 2-3 4 pm meal w 3 forks protein and 3 forks veg Celebrate 4 in 1, 1 scoop 6-8 Drinking 50-60 oz water ? Exercise routine includes: yoga mat at home stationary bike at home, [address] Any post op complications: none RICKY: never DM: never HTN: resolved Hyperlipidemia: never GERD:?0-5 scale ??0 = no symptoms ??1 = symptoms noticeable but not bothersome 2 =symptoms bothersome but not daily ? 3 = symptoms bothersome and daily 4 = symptoms affect daily activities 5 = symptoms are incapacitating, unable to do daily activities ? How bad is the heartburn: 0 ? Heartburn while lying down: 0 ? Heartburn when standing up: 0 ? Heartburn after meals: 0 ? Does heartburn change your diet: 0 ? Does heartburn wake you up from sleep: 0 ? Do you have difficulty swallowin ? Do you have pain with swallowin ? If you take medicine for your reflux, does this affect your daily life: 0 Satisfaction with present condition - satisfied or not satisfied: satisfied [facility] Medical History Annual physical exam Nephrolithiasis History of thyroid cancer Dysphagia Bile salt-induced diarrhea Hypothyroid Complex ovarian cyst Meniscus degeneration Obesity Osteoarthritis of right patellofemoral joint Headache Left knee pain Pre-op examination Malpositioned IUD Hydronephrosis Fatty liver Morbid obesity Gastroenteritis Bilateral ovarian cysts Memory deficit Anserine bursitis Dawson angioma Shoulder pain, left Elevated LFTs Impaired fasting glucose Postsurgical hypothyroidism Benign essential hypertension Pericardial effusion Hypercholesterolemia Vitamin D deficiency 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 Family history of von Willebrand disease Patellar fracture Closed right ankle fracture Lumbar disc herniation History of renal calculi Vertigo Migraine Asthma Surgical History S/P laparoscopic sleeve gastrectomy Hx of laparoscopic partial gastrectomy Postoperative stitch abscess Postop check Sebaceous cyst H/O colonoscopy S/P removal of left ovary Hx of arthroscopy of left knee S/P left knee arthroscopy Hx of tubal ligation History of pubovaginal sling Hx of cystoscopy History of ankle surgery History of cholecystectomy History of bladder surgery History of thyroid surgery History of back surgery History of section Family History Daughter Von Willebrand disease Maternal Grandmother Family history of bladder cancer Family history of breast cancer Sister Family history of breast cancer Maternal Grandfather Family history of lung cancer Other Asthma Diabetes Emphysema of lung Social History Household Members: Family Housing: House Are you a primary career center advisor to a significant other at home: No Do you presently have visiting nurse or other home services: No Alcohol intake: never Comment: medicated, see MAR Patient Tobacco Use Status: Never used Tobacco e-Cigarette/Vaping Use: Never Used Second Hand Smoke Exposure: No service: No Current occupational status: employed 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/hazards: No Cognitive needs: No Hearing needs: No Vision needs: No Female Reproductive History Menstrual Age of Menarche: 14 Telehealth Telehealth Telehealth Platform: Telephone Location of provider rendering services: practice address Location of patient: address on file Patient Identification confirmed using: Name, : Yes Telehealth method: voice only Patient verbally consented to treatment: Yes Patient verbally consented to billing insurance company: Yes Patient informed of any privacy concerns related to visit: Yes Minutes spent on Phone/Video with Pt.: 15 Assessment & Plan Assessment & Plan (1) S/P laparoscopic sleeve gastrectomy: Comment: 12/07/2023 Code(s): Z98.84 - Bariatric surgery status Category: Surgical Plan: The patient is at a healthy weight. She is dealing with multiple ongoing medical issues including vascular disease and cervical spine problems. She has been limited in her exercise but has been following her meal plan. She had lab work done in September revealing elevated TSH however follow-up with her oncologist apartment community manager labs were within normal limits. She also underwent ultrasound at the office in [place]. There were some slightly enlarged lymph nodes that her apartment community manager is monitoring. We will have her return to our office in 4 months, she certainly can call or text with any questions or concerns sooner.
[2024-11-22 08:27] VITALS: BMI 24.7
--- OUTSIDE RECORDS SUMMARY | 2024-11-22 09:09 | XMS_ITS | Clinical Summary ---
Author Organization [facility] Address [address] [address] Phone Care Team Providers Care Signs Cleaner Name Role Phone Tamela Pelaez MD Primary Care Provider [phone] Allergies Active Allergy Reactions Criticality Noted Date Comments Oxycodone Other (See Comments) 09/20/2017 [facility] Medications levothyroxine (SYNTHROID, LEVOTHROID) 200 MCG tablet Take 200 mcg by mouth every morning. Active topiramate (TOPAMAX) 100 MG tablet Take 100 mg by mouth. Active meclizine (ANTIVERT) 25 mg tablet Take 25 mg by mouth 3 (three) times a day as needed. Active fluticasone-jair meterol (ADVAIR DISKUS) 100-50 mcg/dose DISKUS Acti ve lisinopril (PRINIVIL,ZESTR IL) 2.5 MG tablet Take 40 mg by mouth daily. Active fidaxomicin (DIFICID) 200 mg Tab Active butalbital-acet aminophen-caffe ine (FIORICET, ESGIC) 50-325-40 mg per tablet Active predniSONE (DELTASONE) 10 MG tablet 5 tabs/day x 4 days, then 4 tabs/day x 2 days, then 3 tabs/day x 2 days, then 2 tabs/day x 2 days, then 1 tab/day for 2 days 40 tablet 8 Active Additional Information Patient not taking.Reported on 12/17/2022 VENTOLIN HFA 90 mcg/actuation inhaler Inhale 2 puffs into the lungs daily as needed. 3 Active amLODIPine (NORVASC) 5 MG tablet Take 1 tablet by mouth every morning. 3 Active cholecalciferol , vitamin D3, 25 mcg (1,000 unit) capsule Take 1 capsule by mouth every morning. 3 Active cholecalciferol (VITAMIN D3) 25 MCG (1,000 unit) tablet Take 1 tablet by mouth every morning. 3 Active diclofenac sodium (VOLTAREN) 1 % Gel as needed. 3 Active pyridoxine, vitamin B6, (B-6) 100 MG tablet Take 1 tablet by mouth every morning. 3 Active CHOLESTYRAMINE LIGHT 4 gram Powd 2 (two) times a day. 3 Active Active Problems Problem Noted Date Diagnosed Date Papillary thyroid carcinoma 12/17/2022 Assessment & Plan (12/17/2022 11:11 AM EDT): This is a patient with papillary thyroid carcinoma status post total thyroidectomy, central neck and right lateral neck dissection whose undergone radioactive iodine ablation on 2 occasions and has received greater than 300 mCi of iodine-131. She has persistent thyroid carcinoma and is being treated with high dose Tirosint 275 mcg. Her TSH is appropriately suppressed at 0.01 IU/mL the free T4 thankfully is not elevated at 1.53 ng/dL. Thyroglobulin antibody is not detectable this means that the thyroglobulin levels are accurate. The most recent thyroglobulin level was 0.63 which is detectable but is actually a very good range TSH suppression. The patient has neck ultrasounds every 6 months personally performed by Dr. Adorno. It is my impression that the patient presently is receiving excellent care with her current dental internship and the fact is that she will not be able to receive this type of care here in [facility] because I would not be able to perform ultrasounds of the neck in my office. The best I can do is to refer to radiology. In my opinion it is best for the dental internship to perform serial ultrasound especially so if it is the same person performing the procedure. Therefore I recommended that the patient continue following with her current dental internship. I did inform the patient that her thyroid carcinoma is being kept at bay based on thyroglobulin levels and as long as this is maintain she will continue to do well. I will not give her a follow-up appointment. Family History Medical History Relation Comments Diabetes Father Asthma Mother Thyroid cancer Mother Relation Status Comments Father Alive Mother Alive Social History Tobacco Use Types Packs/Day Years Used Date Smoking Tobacco: Never Smokeless Tobacco: Never Tobacco Cessation:Counseling Given: Not Answered Alcohol Use Standard Drinks/Week Comments No 0 (1 standard drink = 0.6 oz pur e alcohol) Education Answer Date Recorded Are you interested in more education? Not on sanjeev e 07/23/2022 Are you concerned about learning? Not on file 07/23/2022 No 07/23/2022 No 07/23/2022 Digital Access Answer Date Recorded No 08/20/2022 No 08/20/2022 Reliable internet access at home? Not on file 08/20/2022 Device with a working camera? Not on file Comments Unknown Sex and Gender Information Value Date Recorded Sex Assigned at Female 09/20/2017 7:48 AM EDT Legal Sex Female 9:26 PM EDT Gender Identity Female 09/20/2017 7:48 AM EDT Sexual Orientation Straight 09/20/2017 7: 48 AM EDT Last Filed Vital Signs Vital Sign Reading Time Taken Comments Blood Pressure 136/82 12/17/2022 9:45 AM EDT Pulse 91 12/17/2022 9:45 AM EDT Temperature 36.5 C (97.7 F) 09/29/2021 11:12 AM EDT Respiratory Rate 18 09/29/2021 11:1 2 AM EDT Oxygen Saturation 97% 12/17/2022 9:45 AM EDT Inhaled Oxygen Concentration 29% 10:19 AM EDT Weight 104.9 kg (231 lb 3.2 oz) 12/17/2022 9:45 AM EDT Height 157.5 cm (5' 2 ) 12/17/2022 9:45 AM EDT Body Mass Index 42.29 12/17/2022 9:45 AM EDT Plan of Treatment Health Maintenance Due Date Last Done Comments LIPID PANEL 1977 DEPRESSION SCREENING 1989 HEPATITIS C SCREENING 1995 HIV ONE-TIME SCREENING (18-6 5 YEARS) 1995 PAP SMEAR 1998 SCREENING FOR DIABETES 2012 PNEUMOCOCCAL VACCINES (0-49 years) (3 of 3 - PCV) 12/08/2014 12/08/2013, 12/14/2006 MAMMOGRAM 2017 CREATININE LEVEL 09/20/2018 09/20/2017 POTASSIUM LEVEL 09/20/2018 09/20/2017 COLOGUARD 2022 COLONOSCOPY 2022 COLORECTAL CANCER SCREENING 2022 FIT TEST 2022 FOBT 2022 SIGMOIDOSCOPY 2022 VIRTUAL COLONOSCOPY 2022 TSH LEVEL 07/20/2023 07/19/2022, 01/18/2022 COVID-19 VACCINE (3 - 2023-2 5 season) 2023 04/24/2020, 04/03/2020 Adult Td,Tdap Booster 04/29/2026 04/29/2016 SMOKING STATUS SCREENING (On ce After 26 Yrs) Completed 12/17/2022 HEPATITIS A VACCINES Aged Out No long er eligible based on patient's age to complete this topic HIB VACCINES Aged Out No longer eligi ble based on patient's age to complete this topic MENINGOCOCCAL VACCINES (ACWY) Aged Out No longer eligible based on patient's age to complete this topic MENINGOCOCCAL VACCINES (B) Aged Out N o longer eligible based on patient's age to complete this topic Medical Devices Not on file Procedures Procedure Name Priority Date/Time Associated Diagnosis Comments BASIC METABOLIC PANEL STAT 09/20/2017 8:02 AM EDT from Last 3 Months or Most Recently Relevant to Health Maintenance Results * (ABNORMAL) Basic metabolic panel (09/20/2017 8:02 AM EDT) SODIUM 143 133 - 146 mmol/L [facility] CHLORIDE 99 96 - 108 mmol/L [facility] POTASSIUM 3.4 3.3 - 5.1 mmol/L [facility] CO2 29 21 - 35 mmol/L [facility] BUN 11 6 - 19 mg/dL [facility] CREATININE <0.50(L) 0.5 - 1.5 mg/dL [facility] GLUCOSE 159(H) 70 - 99 mg/dL [facility] CALCIUM 8.1(L) 8.4 - 10.3 mg/dL [facility] EGFR Not Done >59 mL/min/1.73 m2 [facility] ANION GAP 18 10 - 20 mmol/L [facility] Blood 09/20/2017 8:02 AM EDT 09/20/2017 8:22 AM EDT us Apolinar Vallejo MD, MPH LAB BLOOD ORDERABLES Final Result [facility] [address] [place] [address] from Last 3 Months or Most Recently Relevant to Health Maintenance Insurance [employer] [place] [address] [place] [address] [place] [address] [place] [address] [place] [address] [place] [address] ACO Care Teams Signs Cleaner Relationship Specialty Start Date End Date Tamela Pelaez MD [address] [place] [phone] PCP - General Internal Medicine 09/29/21 Additional Source Comments The information contained in this document represents components of the legal health record. It is not the complete legal health record.[facility]
== END 2024-11-22 08:52 | disposition home or self-care (01) ==
LOC: HO.HBS 08:31
PROVIDERS: PCP Internal Medicine; Visit Provider Physician Assistant Surgical
DX: Z71.3 Dietary counseling and surveillance (principal); Z90.3 Acquired absence of stomach [part of]; Z98.84 Bariatric surgery status
CPT/HCPCS: 98013

== ENCOUNTER 2024-12-17 08:14 | Outpatient (REF) | payer OTHER, SELFPAY ==
--- OUTSIDE RECORDS SUMMARY | 2024-12-17 09:18 | XMS_ITS | Clinical Summary ---
Author Organization [facility] Address [address] [address] Phone Care Team Providers Care Web Database Developer Name Role Phone Tamela Pelaez MD Primary Care Provider [phone] Allergies Active Allergy Reactions Criticality Noted Date Comments Oxycodone Other (See Comments) 09/20/2017 [employer] Medications levothyroxine (SYNTHROID, LEVOTHROID) 200 MCG tablet [...] is receiving excellent care with her current roll hand and the fact is that she will not be able to receive this type of care here in [facility] because I would not be able to perform ultrasounds of the neck in my office. The best I can do is to refer to radiology. In my opinion it is best for the roll hand to perform serial ultrasound especially so if it is the same person performing the procedure. Therefore I recommended that the patient continue following with her current roll hand. I did inform the patient that her [...] HEPATITIS C SCREENING 1995 HIV ONE-TIME SCREENING (18-65 YEARS) 1995 PAP SMEAR 1998 SCREENING FOR DIABETES 2012 PNEUMOCOCCAL VACCINES (0-49 years) (3 of 3 - PCV) 12/08/2014 12/08/2013, 12/14/2006 MAMMOGRAM 2017 CREATININE LEVEL 09/20/2018 09/20/2017 POTASSIUM LEVEL 09/20/2018 09/20/2017 COLOGUARD 2022 COLONOSCOPY 2022 COLORECTAL CANCER SCREENING 2022 FIT TEST 2022 FOBT 2022 SIGMOIDOSCOPY 2022 VIRTUAL COLONOSCOPY 2022 TSH LEVEL 07/20/2023 07/19/2022, 01/18/2022 INFLUENZA VACCINE (#1) 2024 0, 01/03/2018, 02/10/2010, Additional history exists COVID-19 VACCINE ( season) 2024 04/24/2020, 04/03/2020 Adult Td,Tdap Booster 04/29/2026 04/29/2016 SMOKING STATUS SCREENING (Once After 26 Yrs) Completed 12/17/2022 HEPATITIS A [...] EDT) SODIUM 143 133 - 146 mmol/L [facility] CHLORIDE 99 96 - 108 mmol/L [facility] POTASSIUM 3.4 3.3 - 5.1 mmol/L [facility] CO2 29 21 - 35 mmol/L [facility] BUN 11 6 - 19 mg/dL [facility] CREATININE <0.50(L) 0.5 - 1.5 mg/dL [facility] GLUCOSE 159(H) 70 - 99 mg/dL [facility] CALCIUM 8.1(L) 8.4 - 10.3 mg/dL [facility] EGFR Not Done >59 mL/min/1.73 m2 [facility] ANION GAP 18 10 - 20 mmol/L [facility] Blood 09/20/2017 8:02 AM EDT 09/20/2017 8:22 AM EDT Apolinar Vallejo MD, MPH LAB BLOOD ORDERABLES Final Result Performing Organization Address City/State/[facility] Co de Phone Number [address] [address] from Last 3 Months or Most Recently Relevant to Health Maintenance [place] [address] [place] [address] [place] [address] [place] [address] [place] [address] [place] [address] [place] [address] [place] [address] [place] [address] [address] [place] [address] ACO Care Teams Web Database Developer Relationship Specialty Start Date End Date Benigno, Tamela Enriquez MD [address] [place] [phone] PCP - General Internal Medicine 09/29/21 Additional Source Comments The information contained in this document represents components of the legal health record. It is not the complete legal health record.[facility]
[2024-12-17 09:37] LABS: Blood Urea Nitrogen 12 mg/dL (9-16); Estimated Glomerular Filt Rate > 60
[2024-12-20 05:10] LABS: TS Negative Control Passed; TS Panel A 0; TS Panel B 0; TS Positive Control Passed; TSpotTB Negative (Negative)
== END 2024-12-17 08:15 | disposition home or self-care (01) ==
LOC: HO.LAB 08:14
PROVIDERS: Visit Provider Internal Medicine
DX: Z11.1 Encounter for screening for respiratory tuberculosis (principal); I65.09 Occlusion and stenosis of unspecified vertebral artery; Z85.850 Personal history of malignant neoplasm of thyroid
CPT/HCPCS: 36415; 82565; 84520; 86481

== ENCOUNTER 2025-01-09 15:57 | Outpatient (REF) | payer OTHER, SELFPAY ==
--- OUTSIDE RECORDS SUMMARY | 2025-01-09 19:10 | XMS_ITS | Data Portability ---
Author Organization [place] - [facility], Allergy Address [address] [address] Care Team Providers Care Manager Image Name Role Phone ANOOP MARAVILLA Primary Care Provider ESEQUIEL DHALIWAL Referring Provider Assessment Encounter Date Assessment Date Assessment LastModified by Organization Details LastModified Time 11/23/2024 11/23/2024 Alicia Jenkins presents with recurrent right-sided nosebleeds and bilateral earaches. The nosebleeds are likely related to a shallow ulceration inside the right nostril. She has been advised to use hydrating tools, including salt water and ointments, to improve nasal health and minimize scratching. She was educated on proper techniques for managing nosebleeds, including pinching the soft part of the nose and leaning forward to prevent choking on blood. If symptoms persist, cautery may be considered. The bilateral earaches are suspected to be jaw-related due to arthritic changes and jaw locking. Recommendations include using warm compresses to relax muscles, taking anti-inflammatory medications such as Motrin, and consuming softer foods to reduce strain on the jaw. A nasal endoscopy was performed, revealing no abnormalities at the back of the nose. Alicia was advised to follow up through the patient portal in a month to report progress or schedule further evaluation if symptoms persist. Procedure Documentation: - Nasal endoscopy. [email or web address] Not available 11/23/2024 09:45:52 Plan of Treatment Reminders Order Date Submit Date Provider Last Modified By Organization Details Last Modified Time Details Appointments None record ed. Lab None record ed. Referral None record ed. Procedures None record ed. Surgeries None record ed. Imaging None record ed. Medication Orders None record ed. Patient TargetsNo targets recorded. Patient Instructions Encounter Date Encounter Id Patient Instructions Last Modified By Organization Details Last Modified Time 11/23/2024 [id number] - Use salt water and ointments to hydrate the nose. - Avoid scratching or using instruments inside the nostrils. - Pinch the soft part of the nose and lean forward during nosebleeds. - Apply warm compresses to the jaw area. - Take anti-inflammatory medications such as Motrin. - Consume softer foods to reduce strain on the jaw. - Follow up through the patient portal in a month to report progress or schedule further evaluation if symptoms persist. [email or web address] Not available 11/23/2024 09:45:49 Please note: Parts of this encounter note have been generated by AI based on audio conversation. Patient consent was required prior to utilizing this technology. Content review was required prior to finalizing the note. [email or web address] Not available 11/23/2024 09:45:49 Reason for Referral None Reported. Problems Name Problem SNOMED Code Status Onset Date Resolution Date Notes Provider Name and Address Organization Details Recorded Time Bleeding from nose [id number] Active 025 HOLLY CHAND MD [address] [place] [address], [phone], [place] - [facility] 09:45:41 Bilateral earache 763760455 Active 025 HOLLY CHAND MD [address] [place] [address], [phone], [place] - [facility] 09:45:49 Problem Notes None recorded. Procedures Surgical History Date Name Laterality Status Provider Name and Address Organization Details Recorded Time NasalEndoscopy_ DP completed HOLLY CHAND MD [address] [place] [address], [phone], [place] - [facility] 11/23/2024 09:45:28 special back care completed MARSHAL READ [place] - [facility] 11/23/2024 09:26:49 operation on gallbladder completed MARSHAL READ [place] - [facility] 11/23/2024 09:27:17 section completed [facility] [place] [facility] 11/23/2024 09:27:40 Imaging Results None recorded. Procedure Notes None recorded. Medical Equipment None Reported. Allergies Allergen ID Allergen Name Allergen Category Reaction Reaction Severity Criticality Documentation Date Start Date Code Code System Note Provider Name and Address Organization Details Recorded Time 167277 oxycodone medicatio n Not available Not available Not available 11/23/2024 7804 RxNorm MARSHAL RORO tadeo [place] - [facility] 09:25:58 Medications Name Sig Start Date Stop Date Status Note LastModified by Organization Details LastModified Time Carafate 100 mg/mL oral suspension TAKE 10 ML ORALLY 2 TIMES A DAY 11/23 completed Not Available Not Available Not Available tizanidine 2 mg tablet TAKE 1 TABLET BY MOUTH EVERY 8 HOURS active Not Available Not Available No t Available levothyroxi ne 300 mcg tablet TAKE 1 TABLET (300 MCG TOTAL) BY MOUTH EVERY MORNING BEFORE BREAKFAST . active Not Available Not Available No t Available hydrocodone 5 mg-acetamin ophen 325 mg tablet TAKE 2 TABLETS BY MOUTH EVERY 6 HOURS NEEDED FOR SEVERE PAIN active Not Available Not Available No t Available rizatriptan 10 mg tablet TAKE 1 TABLET BY MOUTH EVERY DAY NEEDED FOR MIGRAINE active Not Available Not Available No t Available amlodipine 5 mg tablet TAKE 1 TABLET BY MOUTH EVERY MORNING active Not Available Not Available No t Available meclizine 25 mg tablet TAKE 1 TABLET BY MOUTH 3 TIMES A DAY NEEDED FOR DIZZINESS active Not Available Not Available No t Available pantoprazol e 40 mg tablet,carlo yed release TAKE 1 TABLET BY MOUTH EVERY DAY 11/23 completed Not Available Not Available Not Available pyridoxine (vitamin B6) 50 mg tablet TAKE 1 TABLET BY MOUTH EVERY DAY 11/23 completed Not Available Not Available Not Available omeprazole 20 mg capsule,del ayed release TAKE 1 CAPSULE BY MOUTH EVERY MORNING 11/23 completed Not Available Not Available Not Available pyridoxine (vitamin B6) 100 mg tablet TAKE 1 TABLET BY MOUTH EVERY DAY active Not Available Not Available No t Available methylpredn isolone 4 mg tablets in a dose pack TAKE 6 TABLETS ON DAY 1 DIRECTED ON PACKAGE AND DECREASE BY 1 TAB EACH DAY FOR A TOTAL OF 6 DAYS 11/23 completed Not Available Not Available Not Available lisinopril 40 mg tablet TAKE 1 TABLET BY MOUTH EVERY DAY 11/23 completed Not Available Not Available Not Available ondansetron 4 mg disintegrat ing tablet PLEASE SEE ATTACHED FOR DETAILED DIRECTION S active Not Available Not Available No t Available clotrimazol e 1 % topical cream APPLY 1 APPLICATI ON TOPICALLY 2 TIMES A DAY active Not Available Not Available No t Available Ventolin HFA 90 mcg/actuati on aerosol inhaler 2 PUFF INHALED EVERY 6 HOURS NEEDED FOR SHORTNESS OF BREATH OR WHEEZING FOR 30 DAYS active Not Available Not Available No t Available Vitamin D3 25 mcg (1,000 unit) capsule TAKE 1 CAPSULE BY MOUTH EVERY MORNING active Not Available Not Available No t Available nitrofurant oin monohydrate /macrocryst als 100 mg capsule TAKE 1 CAPSULE BY MOUTH TWICE A DAY FOR 5 DAYS 11/23 completed Not Available Not Available Not Available Gavilax 17 gram/dose oral powder PLEASE SEE ATTACHED FOR DETAILED DIRECTION S 11/23 completed Not Available Not Available Not Available tranexamic acid 650 mg tablet TAKE 2 TABLETS BY MOUTH 3 TIMES A DAY START 1ST DAY OF MENSES AND TAKE IT UP TO 3-5 DAYS OF MENSES. active Not Available Not Available No t Available aspirin 81 mg capsule Take 1 capsule every day by oral route. active Not Available Not Available No t Available Vitals Date Recorded Body height Body mass index (BMI) Body weight Provider Name and Address Organization Details Last Updated DateTime 11/23/2024 154.94 cm 35.3 kg/m2 37433.77 g MARSHAL READ [place] - [facility] 11/23/2024 09:22:40 Social History None recorded. Functional Status Question Answer Note LastModified by Organization D etails LastModified Time What is your level of alcohol consumption? None [email or web address] Information not available 11/23/2024 Mental Status None recorded. Family History Nothing Reported. Medical History Condition Response Migraines Y Thyroid Problems Y Asthma Y Gynecological HistoryNo gynecological history recorded. Obstetrics History GPAL:G 0 P 0 0 0 0 Past Encounters Encounter ID Performer Location Encounter Start Date Encounter Closed Date Diagnosis/Indication Diagnosis SNOMED-CT Code Diagnosis ICD10 Code Diagnosis IMO Codes Diagnosis Note [id number] HOLLY CHAND MD [facility] [address] [address] 11/23/2024 09:03:05 11/23/2024 09:46:05 Bleeding from nose 086839467 R04.0 2558 Bilateral earache 162005 003 H92.03 [id number] Health Concerns Section Related Observation LastModified by Organization Detai ls LastModified Time None Recorded Concern Status LastModified by Organization Details LastModified Time None Recorded Advance Directives Directive None Recorded Payers Insurance Date Sequence Insurance Name Policy Number Policy Bunch Covered Member ID Bunch Member ID Guarantor Name 08/27/2024 1 [facility] - DOS ON OR AFTER 2022 - ONE CARE (MEDICARE REPLACEMENT/AD VANTAGE - HMO) Alicia Jenkins [id number] Alicia Jenkins 11/20/2024 1 [facility] - HEALTH NET PLAN (MEDICAID HMO) [employer] Alicia Jenkins [id number] Alicia Jenkisn Notes Date Note Type Note Provider Name and Address Organization Details Recorded Time 11/23/2024 text/html epistaxis Alicia Jenkins is a 49-year-old female who presents for recurrent right-sided nosebleeds and bilateral earaches. The nosebleeds began last year, initially resolved, but recently recurred. Episodes last approximately 20 to 30 minutes and are managed by pinching the soft part of the nose and tipping the head back. She reports a shallow ulceration inside the right nostril, which she occasionally scratches. There is no history of trauma or nasal surgery, drug use, or smoking. She recently started taking baby aspirin due to a blood clot in her brain and a blockage. The earaches have been ongoing for several years, affecting both sides, and are associated with jaw locking and clunking during movement. She has dentures and follows a strict diet after undergoing gastro surgery in November, resulting in a weight loss of nearly 100 pounds since July. She is a [employer] but has been out of work for a couple of years due to a torn meniscus requiring knee replacement surgery. HOLLY CHAND MD [address] [place] [address], [place], [phone], [place] - [facility] 11/23/2024 09:46:54 OBGyn Episode No OBEpisode recorded.
--- OUTSIDE RECORDS SUMMARY | 2025-01-09 19:10 | XMS_ITS | Clinical Summary ---
Author Organization [facility] Address [address] [address] Phone Care Team Providers Care Airline Attendant Name Role Phone Tamela Pelaez MD Primary Care Provider [phone] Allergies Active Allergy Reactions Criticality Noted Date Comments Oxycodone Other (See Comments) 09/20/2017 [facility] Medications levothyroxine (SYNTHROID, LEVOTHROID) 200 MCG tablet [...] is receiving excellent care with her current zigzag machine operator and the fact is that she will not be able to receive this type of care here in [facility] because I would not be able to perform ultrasounds of the neck in my office. The best I can do is to refer to radiology. In my opinion it is best for the zigzag machine operator to perform serial ultrasound especially so if it is the same person performing the procedure. Therefore I recommended that the patient continue following with her current zigzag machine operator. I did inform the patient that her [...] EDT) SODIUM 143 133 - 146 mmol/L [facility] CHLORIDE 99 96 - 108 mmol/L [facility] POTASSIUM 3.4 3.3 - 5.1 mmol/L [facility] CO2 29 21 - 35 mmol/L [facility] BUN 11 6 - 19 mg/dL [facility] CREATININE <0.50(L) 0.5 - 1.5 mg/dL [facility] GLUCOSE 159(H) 70 - 99 mg/dL [facility] CALCIUM 8.1(L) 8.4 - 10.3 mg/dL [facility] EGFR Not Done >59 mL/min/1.73 m2 [facility] ANION GAP 18 10 - 20 mmol/L [facility] Blood 09/20/2017 8:02 AM EDT 09/20/2017 8:22 AM EDT Apolinar Vallejo MD, MPH LAB BLOOD ORDERABLES Final Result Performing Organization Address City/State/[facility] Co de Phone Number [address] [address] from Last 3 Months or Most Recently Relevant to Health Maintenance [place] [address] [place] [address] [place] [address] [place] [address] [place] [address] [place] [address] [place] [address] [place] [address] [place] [address] [place] [address] ACO Care Teams Airline Attendant Relationship Specialty Start Date End Date Benigno, Tamela Enriquez MD [address] [place] [phone] PCP - General Internal Medicine 09/29/21 Additional Source Comments The information contained in this document represents components of the legal health record. It is not the complete legal health record.[facility]
== END 2025-01-09 15:58 | disposition home or self-care (01) ==
LOC: HO.MAMMO 15:57
PROVIDERS: Visit Provider Internal Medicine
DX: Z12.31 Encounter for screening mammogram for malignant neoplasm of breast (principal)
CPT/HCPCS: 77063; 77067

== ENCOUNTER → 2025-01-09 16:00 | Outpatient (BNV) | payer OTHER, SELFPAY | PROVIDERS: Visit Provider Radiology Body Imaging | DX: Z12.31 Encounter for screening mammogram for malignant neoplasm of breast (principal) | CPT/HCPCS: 77063; 77067 ==

== ENCOUNTER 2025-01-21 09:17 | Outpatient (AMB) | payer OTHER, SELFPAY ==
--- NOTE | 2025-01-21 09:32 | MHC.OFFVIS ---
Vital Signs 01/21/25 09:39 Height 5 ft 1 in Weight 199 lb 2 oz BMI 37.6 BP 139/75 Blood Pressure Location Lt brachial Position Sitting Pulse 70 Intake Visit Reasons: discuss breast fibroadenoma removal Intake Note: Patient is seen in office to discuss surgery for left breast fibroadenoma. Pt c/o: had a bx last year and was told is benign, had recent imaging done and was told is getting bigger and needs to be removed, pt does not feel the lump Garbage Truck Driver Required: No Tests Superintendent: Tests Superintendent Present Accompanied by: Self / Same As Patient Allergies oxycodone (OXYCODONE) Allergy (Intermediate, Verified 01/21/25 09:38) RASH,SHAKES, shakiness, body shaking, tremors Medication List - Last Reconciled 01/21/25 by Clarence Fu MD albuterol sulfate 90 mcg/actuation 2 puffs inhalation Q6H PRN 30 days ascorbic acid (vitamin C) mg PO blood pressure monitor As directed cholecalciferol (vitamin D3) 25 mcg PO DAILY clotrimazole 1% (Antifungal (clotrimazole)) 1 appl topical BID diclofenac sodium 1% (Voltaren Arthritis Pain) 4 grams topical QID PRN Lactobacillus rhamnosus GG (Culturelle) 1 cap PO DAILY levothyroxine 300 mcg PO DAILY@0600 meclizine 25 mg PO TID PRN Held on 12/08/23. Instructions: Resume on 12/12/23. pyridoxine (vitamin B6) 100 mg PO DAILY 90 days rizatriptan 10 mg PO DAILY PRN Held on 12/08/23. Instructions: Resume on 12/15/23. vitamin E (dl, acetate) 45 mg PO DAILY HPI Comments Details: 49-year-old female patient returning for re-evaluation of a lump located in the left breast at the upper outer quadrant. She was previously evaluated on 01/10/2024 for a palpable lump in the upper outer quadrant confirmed on ultrasound. An ultrasound-guided core biopsy was subsequently obtained which confirmed a fibroadenoma. Since this time the lesion has increased in size and she presents today to discuss excision of this palpable lump. She reports some pain when the lesion is palpated but denies any skin redness or discharge. Her family history is significant for breast cancer in her maternal grandmother. Family history is also positive for lung cancer and colon cancer. Her daughter was diagnosed with von Willebrand's. The patient does have a history of thyroid cancer and underwent a thyroidectomy as well as radiation therapy. She denies any previous breast surgery. She is with 1 spontaneous ab. Her most recent mammogram of 01/09/2025 revealed further interval increase in the size of the left breast mass in the upper outer quadrant with prior pathology showing fibroadenoma. Current maximal mammographic dimension is 2.7 cm. Sonographic re-evaluation of the mass was recommended unless surgical excision is planned (BI-RADS 0). The patient would like to have the lesion surgically excised. [facility] Medical History Annual physical exam Nephrolithiasis History of thyroid cancer Dysphagia Bile salt-induced diarrhea Hypothyroid Complex ovarian cyst Meniscus degeneration Obesity Osteoarthritis of right patellofemoral joint Headache Left knee pain Pre-op examination Malpositioned IUD Hydronephrosis Fatty liver Morbid obesity Gastroenteritis Bilateral ovarian cysts Memory deficit Anserine bursitis Dawson angioma Shoulder pain, left Elevated LFTs Impaired fasting glucose Postsurgical hypothyroidism Benign essential hypertension Pericardial effusion Hypercholesterolemia Vitamin D deficiency 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 Family history of von Willebrand disease Patellar fracture Closed right ankle fracture Lumbar disc herniation History of renal calculi Vertigo Migraine Asthma Surgical History S/P laparoscopic sleeve gastrectomy Hx of laparoscopic partial gastrectomy Postoperative stitch abscess Postop check Sebaceous cyst H/O colonoscopy S/P removal of left ovary Hx of arthroscopy of left knee S/P left knee arthroscopy Hx of tubal ligation History of pubovaginal sling Hx of cystoscopy History of ankle surgery History of cholecystectomy History of bladder surgery History of thyroid surgery History of back surgery History of section Family History Daughter Von Willebrand disease Maternal Grandmother Family history of bladder cancer Family history of breast cancer Sister Family history of breast cancer Maternal Grandfather Family history of lung cancer Other Asthma Diabetes Emphysema of lung Social History Household Members: Family Housing: House Are you a primary care director rn to a significant other at home: No Do you presently have visiting nurse or other home services: No Alcohol intake: never Comment: medicated, see MAR Patient Tobacco Use Status: Never used Tobacco e-Cigarette/Vaping Use: Never Used Second Hand Smoke Exposure: No service: No Current occupational status: employed Current occupation: [employer], 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/hazards: No Cognitive needs: No Hearing needs: No Vision needs: No Female Reproductive History Menstrual Age of Menarche: 14 Review of Systems Const All systems reviewed & are unremarkable except as noted in HPI and below Physical Exam Vital Signs: Last Vital Signs Pulse 70 01/21/25 09:39 BP 139/75 01/21/25 09:39 BMI result Body Mass Index 37.6 Const General: cooperative and no acute distress Nutritional Appearance: well nourished Orientation/consciousness: patient oriented x3 Limitations: no limitations HEENT Head: Yes normocephalic and Yes atraumatic Ears: hearing grossly normal bilaterally Chest Other: Left breast: Mild fibrocystic changes as well as a palpable mass located in the upper outer quadrant approximately 02:00 measuring 2 cm in diameter. Mass is mobile within the breast tissue with no overlying skin changes. There is tenderness to palpation of this mass. Right breast: No skin changes, nipple discharge, nipple retraction, palpable mass or enlarged lymph nodes. There is a diffuse fibrocystic change throughout the breast tissue. No tenderness is elicited. Chest/axillae images:  1. 2 cm palpable mass in the upper outer quadrant left breast most consistent with a fibroadenoma or phyllodes tumor Resp Effort & Inspection: normal respiratory effort, no audible wheezes, no cough and no respiratory distress Cardio Jugular venous distension: no JVD GI Inspection: Yes normal to inspection Skin Other: Warm, dry, no rash Neuro General: patient oriented x3 Extrem General: Yes no clubbing, cyanosis or edema Assessment & Plan Assessment & Plan (1) Left breast mass: Comment: December 2023 fibroadenoma Code(s): N63.20 - Unspecified lump in the left breast, unspecified quadrant Category: Medical Qualifiers: Breast mass location: upper outer quadrant Qualified Code(s): N63.21 - Unspecified lump in the left breast, upper outer quadrant Plan 49-year-old female patient presenting with an enlarging mass in the left breast at the upper outer quadrant previously biopsied as a fibroadenoma. This has confirmed on physical examination with a palpable mass measuring at least 2 cm in the upper outer quadrant, mobile within the breast tissue, consistent with a fibroadenoma or phyllodes tumor. I reviewed the procedure, risks, and alternatives of excision of this palpable breast mass of the left breast. She consents to a left breast lumpectomy as a short-stay surgery. Coding Level of Care Code Est Pt Level 4 (85422) Diagnoses Mass of upper outer quadrant of left breast N63.21 Breast mass location: upper outer quadrant
[2025-01-21 09:39] VITALS: BP 139/75; PULSE 70; BMI 37.6
--- OUTSIDE RECORDS SUMMARY | 2025-01-21 10:15 | XMS_ITS | Clinical Summary ---
Author Organization [facility] Address [address] [address] Phone Care Team Providers Care Electronic Data Interchange Specialist Name Role Phone Tamela Pelaez MD Primary Care Provider [phone] Allergies Active Allergy Reactions Criticality Noted Date Comments Oxycodone Other (See Comments) 09/20/2017 [employer] [facility] Medications levothyroxine (SYNTHROID, LEVOTHROID) 200 MCG tablet [...] is receiving excellent care with her current visitor use assistant and the fact is that she will not be able to receive this type of care here in [facility] because I would not be able to perform ultrasounds of the neck in my office. The best I can do is to refer to radiology. In my opinion it is best for the visitor use assistant to perform serial ultrasound especially so if it is the same person performing the procedure. Therefore I recommended that the patient continue following with her current visitor use assistant. I did inform the patient that her [...] EDT) SODIUM 143 133 - 146 mmol/L [facility] CHLORIDE 99 96 - 108 mmol/L [facility] POTASSIUM 3.4 3.3 - 5.1 mmol/L [facility] CO2 29 21 - 35 mmol/L [facility] BUN 11 6 - 19 mg/dL [facility] CREATININE <0.50(L) 0.5 - 1.5 mg/dL [facility] GLUCOSE 159(H) 70 - 99 mg/dL [facility] CALCIUM 8.1(L) 8.4 - 10.3 mg/dL [facility] EGFR Not Done >59 mL/min/1.73 m2 [facility] ANION GAP 18 10 - 20 mmol/L [facility] Blood 09/20/2017 8:02 AM EDT 09/20/2017 8:22 AM EDT Apolinar Vallejo MD, MPH LAB BLOOD ORDERABLES Final Result Performing Organization Address City/State/[facility] Co de Phone Number [address] [address] from Last 3 Months or Most Recently Relevant to Health Maintenance [place] [address] [place] [place] [address] [place] [place] [address] [place] [place] [address] [place] [address] [address] ACO Care Teams Electronic Data Interchange Specialist Relationship Specialty Start Date End Date Benigno, Tamela Enriquez MD [address] [place] [phone] PCP - General Internal Medicine 09/29/21 Additional Source Comments The information contained in this document represents components of the legal health record. It is not the complete legal health record.[facility]
== END 2025-01-21 10:13 | disposition home or self-care (01) ==
PROVIDERS: PCP Internal Medicine; Visit Provider Surgery
DX: N63.21 Unspecified lump in the left breast, upper outer quadrant (principal)
CPT/HCPCS: 99214

== ENCOUNTER → 2025-01-21 09:17 | Outpatient (BNVA) | payer OTHER, SELFPAY | PROVIDERS: PCP Internal Medicine; Visit Provider Surgery | DX: Z01.818 Encounter for other preprocedural examination (principal); N63.21 Unspecified lump in the left breast, upper outer quadrant | CPT/HCPCS: 99212 ==

== ENCOUNTER → 2025-02-06 13:05 | Outpatient (BNV) | payer OTHER, SELFPAY | PROVIDERS: PCP Internal Medicine; Visit Provider Internal Medicine Cardiovascular Disease | DX: Z01.810 Encounter for preprocedural cardiovascular examination (principal) | CPT/HCPCS: 93010 ==

== ENCOUNTER 2025-02-20 07:46 | Day surgery (SDC) | payer OTHER, SELFPAY ==
--- OUTSIDE RECORDS SUMMARY | 2025-01-22 08:50 | XMS_ITS | Clinical Summary ---
Author Organization [facility] Address [address] [address] Phone Care Team Providers Care Business Agent Name Role Phone Tamela Pelaez MD Primary Care Provider [phone] Allergies Active Allergy Reactions Criticality Noted Date Comments Oxycodone Other (See Comments) 09/20/2017 Zenput Medications levothyroxine (SYNTHROID, LEVOTHROID) 200 MCG tablet [...] is receiving excellent care with her current research chemical engineer and the fact is that she will not be able to receive this type of care here in [facility] because I would not be able to perform ultrasounds of the neck in my office. The best I can do is to refer to radiology. In my opinion it is best for the research chemical engineer to perform serial ultrasound especially so if it is the same person performing the procedure. Therefore I recommended that the patient continue following with her current research chemical engineer. I did inform the patient that her [...] EDT) SODIUM 143 133 - 146 mmol/L [facility] CHLORIDE 99 96 - 108 mmol/L [facility] POTASSIUM 3.4 3.3 - 5.1 mmol/L [facility] CO2 29 21 - 35 mmol/L [facility] BUN 11 6 - 19 mg/dL [facility] CREATININE <0.50(L) 0.5 - 1.5 mg/dL [facility] GLUCOSE 159(H) 70 - 99 mg/dL [facility] CALCIUM 8.1(L) 8.4 - 10.3 mg/dL [facility] EGFR Not Done >59 mL/min/1.73 m2 [facility] ANION GAP 18 10 - 20 mmol/L [facility] Blood 09/20/2017 8:02 AM EDT 09/20/2017 8:22 AM EDT Apolinar Vallejo MD, MPH LAB BLOOD ORDERABLES Final Result Performing Organization Address City/State/[facility] Co de Phone Number [address] [address] from Last 3 Months or Most Recently Relevant to Health Maintenance [place] [address] [place] [address] [place] [address] [place] [address] [place] [address] [place] [address] [place] [address] [place] [address] [place] [address] [place] [address] ACO Care Teams Business Agent Relationship Specialty Start Date End Date Benigno, Tamela Enriquez MD [address] [place] [id number] PCP - General Internal Medicine 09/29/21 Additional Source Comments The information contained in this document represents components of the legal health record. It is not the complete legal health record.[facility]
--- OUTSIDE RECORDS SUMMARY | 2025-01-22 08:50 | XMS_ITS | Data Portability ---
Author Organization [place] [facility], Allergy Address [address] [address] Care Team Providers Care Parts Department Manager Name Role Phone ANOOP MARAVILLA Primary Care Provider ESEQUIEL DHALIWAL Referring Provider [phone] Assessment Encounter Date Assessment Date Assessment LastModified [...] By Organization Details Last Modified Time 11/23/2024 38867 - Use salt water and ointments to [...] Organization Details Recorded Time Bleeding from nose [id number] Active 025 HOLLY CHAND MD [address] [place] [address], [phone], [place] [facility] 09:45:41 Bilateral earache [id number] Active 025 HOLLY CHAND MD [address] [place] [address], [phone], [place] [facility] 09:45:49 Problem Notes None recorded. Procedures Surgical History Date Name Laterality Status Provider Name and Address Organization Details Recorded Time NasalEndoscopy_ DP completed HOLLY CHAND MD [address] [place] [address], [phone], [place] - [facility] 11/23/2024 09:45:28 special back care completed MARSHAL READ [place] - [facility] 11/23/2024 09:26:49 operation on gallbladder completed MARSHAL READ [place] - [facility] 11/23/2024 09:27:17 section completed [place] - [facility] 11/23/2024 09:27:40 Imaging Results None recorded. Procedure Notes None recorded. Medical Equipment None Reported. Allergies Allergen ID Allergen Name Allergen Category Reaction Reaction Severity Criticality Documentation Date Start Date Code Code System Note Provider Name and Address Organization Details Recorded Time 613579 oxycodone medicatio n Not available Not available Not available 11/23/2024 7804 RxNorm MARSHAL RORO tadeo [place] - [facility] 09:25:58 Medications Name Sig Start Date Stop [...] Updated DateTime 11/23/2024 154.94 cm 35.3 kg/m2 49264.77 g MARSHAL READ [place] [facility] 11/23/2024 09:22:40 Social History None recorded. Functional [...] ICD10 Code Diagnosis IMO Codes Diagnosis Note [id number] HOLLY CHAND MD [facility] [address] [phone] 11/23/2024 09:03:05 11/23/2024 09:46:05 Bleeding from nose [id number] R04.0 2558 Bilateral earache 823702 003 H92.03 [id number] Health Concerns Section Related Observation LastModified by Organization Detai ls LastModified Time None Recorded Concern Status LastModified by Organization Details LastModified Time None Recorded Advance Directives Directive None Recorded Payers Insurance Date Sequence Insurance Name Policy Number Policy Bunch Covered Member ID Bunch Member ID Guarantor Name 08/27/2024 1 [facility] - DOS ON OR AFTER 2022 - ONE CARE (MEDICARE REPLACEMENT/AD VANTAGE - HMO) Alicia Jenkins [id number] Alicia Jenkins 11/20/[address] [facility] - HEALTH NET PLAN (MEDICAID HMO) [employer] Alicia Jenkins [id number] Alicia Jenkins Notes Date Note Type Note Provider Name [...] 100 pounds since July. 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 HOLLY CHAND MD [address] [place] [address], [place], [phone], [place] [facility] 11/23/2024 09:46:54 OBGyn Episode No OBEpisode recorded.
--- NOTE | 2025-02-06 | ECG_ITS ---
Test Reason : preop Blood Pressure : */* mmHG Vent. Rate : 72 BPM Atrial Rate : 72 BPM P-R Int : 162 ms QRS Dur : 94 ms QT Int : 394 ms P-R-T Axes : 40 13 29 degrees QTcB Int : 431 ms Normal sinus rhythm Normal ECG When compared with ECG of 24-Aug-2023 11:28, No significant change was found Referred By: Kristy Hawley Electronically Signed By: BLAISE WOODY MD
[2025-02-06 12:16] VITALS: BP 152/86; PULSE 73; RESP 16; O2SAT 100; BMI 38.0
[2025-02-06 15:43] LABS: Free T4 (Free Thyroxine) 1.49 ng/dL (0.71-1.85)
[2025-02-20] VITALS (7 sets, daily range): BP systolic 114–135; BP diastolic 70–80; PULSE 62–72; RESP 16–20; TEMP 36.1–36.2; O2SAT 97–100; BMI 37.2
[2025-02-20] MEDS: Lactated Ringers 1,000 ML 100 ML IVCONT (08:23)
--- NOTE | 2025-02-20 09:24 | HO.ANESPROP2 ---
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 Following with [facility] Neuroendocrine. s/p cerebral angiogram 10/2024. Last office visit 11/2024 - stable with medically manage. Plan for routine 1 year surveillence imaging and office visit. Post-surgical hypothyroid: meds adjusted by [facility] provider ~ 2 weeks ago for slight elevated TSH. ?History of?papillary thyroid cancer s/p thyroidectomy?and radiation 2006 Asthma: rare symptoms. Last albuterol >1 year [facility] Active Problems Active Problems: All Active Problems Epistaxis (Acute) Vertebral artery stenosis (Acute) Microscopic hematuria (Acute) Pelvic pain (Acute) Excess skin (Acute) Anemia (Acute) Left breast mass (Acute) Tubular adenoma of colon (Acute) Congenital intra-abdominal adhesions (Acute) Uterine myoma (Acute) Mass of chest wall, right (Acute) Annual physical exam (Acute) Unspecified nonpsychotic mental disorder (Acute) GERD (gastroesophageal reflux disease) (Acute) Hemorrhagic cyst of ovary (Acute) Abnormal uterine bleeding (Acute) Adenoma of right adrenal gland (Acute) Osteoarthritis of left knee (Acute) Migraine (Acute) Nephrolithiasis (Acute) History of thyroid cancer (Acute) Hx of arthroscopy of left knee (Acute) S/P laparoscopic sleeve gastrectomy (Acute) Vertigo (Acute) Fatty liver (Acute) Morbid obesity (Acute) Asthma (Acute) Impaired fasting glucose (Acute) Postsurgical hypothyroidism (Acute) Benign essential hypertension (Acute) Hypercholesterolemia (Acute) Vitamin D deficiency (Acute) Past Medical History Medical History (Updated 02/06/25 @ 12:10 by Chela Almanzar RN) Vertebral artery stenosis Nephrolithiasis History of thyroid cancer Dysphagia Bile salt-induced diarrhea Hypothyroid Complex ovarian cyst Meniscus degeneration Obesity Osteoarthritis of right patellofemoral joint Headache Malpositioned IUD Hydronephrosis Fatty liver Morbid obesity Gastroenteritis Bilateral ovarian cysts Memory deficit Anserine bursitis Dawson angioma Shoulder pain, left Elevated LFTs Impaired fasting glucose Postsurgical hypothyroidism Benign essential hypertension Pericardial effusion Hypercholesterolemia Vitamin D deficiency 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 Family history of von Willebrand disease Patellar fracture Closed right ankle fracture Lumbar disc herniation History of renal calculi Vertigo Migraine Asthma Family History Family History Daughter Von Willebrand disease Maternal Grandmother Family history of bladder cancer Family history of breast cancer Sister Family history of breast cancer Maternal Grandfather Family history of lung cancer Other Asthma Diabetes Emphysema of lung Family history of problems with anesthesia: No Surgical History Surgical History (Updated 02/20/25 @ 08:06 by Michelle Rodgers RN) History of partial hysterectomy Hx of cervical discectomy S/P laparoscopic sleeve gastrectomy Sebaceous cyst H/O colonoscopy S/P removal of left ovary Hx of arthroscopy of left knee S/P left knee arthroscopy Hx of tubal ligation History of pubovaginal sling Hx of cystoscopy History of ankle surgery History of cholecystectomy History of bladder surgery History of thyroid surgery History of back surgery History of section History of Problems with Anesthesia: No Social History Social History Household Members: Family Housing: House Are you a primary direct care staffer to a significant other at home: No Do you presently have visiting nurse or other home services: No Alcohol intake: never Comment: medicated, see MAR Patient Tobacco Use Status: Never used Tobacco e-Cigarette/Vaping Use: Never Used Second Hand Smoke Exposure: No Use of substances other than those prescribed or required for medical reasons: No Have you been hit, kicked, punched, or otherwise hurt by someone within the past year? 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/hazards: No Cognitive needs: No Hearing needs: No Vision needs: No Meds Allergies Allergy/AdvReac Type Severity Reaction Status Date / Time oxycodone (OXYCODONE) Allergy Intermediate RASH,SHAKES, Verified 01/21/25 09:38 shakiness, body shaking, tremors Home Medications ?Medication ?Instructions ?Recorded ?Confirmed ?Last Taken ?Type levothyroxine 300 mcg tablet 300 mcg PO DAILY@0600 07/29/23 02/05/25 02/20/25 History Lactobacillus rhamnosus GG 10 1 cap PO DAILY 12/01/23 02/05/25 12/05/23 History billion cell capsule (Culturelle) diclofenac sodium 1 % topical gel 4 g topical QID PRN Pain 12/01/23 02/05/25 Unknown History (Voltaren Arthritis Pain) rizatriptan 10 mg tablet 10 mg PO DAILY PRN migraine 12/01/23 02/05/25 Unknown History Held on 12/08/23. headache Instructions: Resume on 12/15/23. ascorbic acid (vitamin C) 500 mg 500 mg PO DAILY 10/09/24 02/05/25 Unknown History capsule vitamin E (dl, acetate) 45 mg (100 45 mg PO DAILY 10/09/24 02/05/25 Unknown History unit) capsule Exam Height,Weight and Vital Signs: Height 5 ft 1 in Weight 91.3 kg Last Vital Signs Pulse 73 02/06/25 12:16 Resp 16 02/06/25 12:16 BP 152/86 H 02/06/25 12:16 Pulse Ox 100 02/06/25 12:16 O2 Del Method Room Air 02/06/25 12:16 Pertinent Lab Results Pertinent Lab Results: Laboratory Tests 10/10/24 12/17/24 09:02 08:46 WBC 5.5 Hgb 12.7 Hct 37.5 Plt Count 282 Sodium 139 Potassium 4.4 D Chloride 102 Carbon Dioxide 30 H BUN 12 Creatinine 0.53 Lab Results 02/06/25 Range/Units 13:04 TSH 0.20 L (0.32-4.0) uIU/mL Free T4 1.49 (0.71-1.85) ng/dL Narrative Narrative: EKG 01/2025 Vent. Rate : 72 BPM Atrial Rate : 72 BPM P-R Int : 162 ms QRS Dur : 94 ms QT Int : 394 ms P-R-T Axes : 40 13 29 degrees QTcB Int : 431 ms Normal sinus rhythm Normal ECG When compared with ECG of 24-Aug-2023 11:28, No significant change was found Airway Mallampati Class: II TM Dist: >3cm Neck ROM: Full (s/p ACDF 08/2024) Denture: Upper and Lower Heart: RRR Lungs: CTAB Assessment and Plan Assessment Anesthesia Assessment: Anesthesia Plan Discussed and PAT Visit Final Anesthetic Review Family History of Problems with Anesthesia: No History of Problems with Anesthesia: No Documented by User: Aleja Galdamez DO 02/20/25 09:27 [facility] Past Medical History Medical History (Updated 02/06/25 @ 12:10 by Chela Almanzar RN) Vertebral artery stenosis Nephrolithiasis History of thyroid cancer Dysphagia Bile salt-induced diarrhea Hypothyroid Complex ovarian cyst Meniscus degeneration Obesity Osteoarthritis of right patellofemoral joint Headache Malpositioned IUD Hydronephrosis Fatty liver Morbid obesity Gastroenteritis Bilateral ovarian cysts Memory deficit Anserine bursitis Dawson angioma Shoulder pain, left Elevated LFTs Impaired fasting glucose Postsurgical hypothyroidism Benign essential hypertension Pericardial effusion Hypercholesterolemia Vitamin D deficiency 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 Family history of von Willebrand disease Patellar fracture Closed right ankle fracture Lumbar disc herniation History of renal calculi Vertigo Migraine Asthma Family History Family History Daughter Von Willebrand disease Maternal Grandmother Family history of bladder cancer Family history of breast cancer Sister Family history of breast cancer Maternal Grandfather Family history of lung cancer Other Asthma Diabetes Emphysema of lung Family history of problems with anesthesia: No Surgical History Surgical History (Updated 02/20/25 @ 08:06 by Michelle Rodgers RN) History of partial hysterectomy Hx of cervical discectomy S/P laparoscopic sleeve gastrectomy Sebaceous cyst H/O colonoscopy S/P removal of left ovary Hx of arthroscopy of left knee S/P left knee arthroscopy Hx of tubal ligation History of pubovaginal sling Hx of cystoscopy History of ankle surgery History of cholecystectomy History of bladder surgery History of thyroid surgery History of back surgery History of section History of Problems with Anesthesia: No Social History Social History Household Members: Family Housing: House Are you a primary direct care staffer to a significant other at home: No Do you presently have visiting nurse or other home services: No Alcohol intake: never Comment: medicated, see MAR Patient Tobacco Use Status: Never used Tobacco e-Cigarette/Vaping Use: Never Used Second Hand Smoke Exposure: No Use of substances other than those prescribed or required for medical reasons: No Have you been hit, kicked, punched, or otherwise hurt by someone within the past year? 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/hazards: No Cognitive needs: No Hearing needs: No Vision needs: No Meds Allergies Allergy/AdvReac Type Severity Reaction Status Date / Time oxycodone (OXYCODONE) Allergy Intermediate RASH,SHAKES, Verified 01/21/25 09:38 shakiness, body shaking, tremors Home Medications ?Medication ?Instructions ?Recorded ?Confirmed ?Last Taken ?Type levothyroxine 300 mcg tablet 300 mcg PO DAILY@0600 07/29/23 02/05/25 02/20/25 History Lactobacillus rhamnosus GG 10 1 cap PO DAILY 12/01/23 02/05/25 12/05/23 History billion cell capsule (Culturelle) diclofenac sodium 1 % topical gel 4 g topical QID PRN Pain 12/01/23 02/05/25 Unknown History (Voltaren Arthritis Pain) rizatriptan 10 mg tablet 10 mg PO DAILY PRN migraine 12/01/23 02/05/25 Unknown History Held on 12/08/23. headache Instructions: Resume on 12/15/23. ascorbic acid (vitamin C) 500 mg 500 mg PO DAILY 10/09/24 02/05/25 Unknown History capsule vitamin E (dl, acetate) 45 mg (100 45 mg PO DAILY 10/09/24 02/05/25 Unknown History unit) capsule Exam Exam Date and Time: 02/20/25924 Height,Weight and Vital Signs: Height 5 ft 1 in Weight 91.3 kg Last Vital Signs Pulse 73 02/06/25 12:16 Resp 16 02/06/25 12:16 BP 152/86 H 02/06/25 12:16 Pulse Ox 100 02/06/25 12:16 O2 Del Method Room Air 02/06/25 12:16 Vital Signs Pulse Rate 73 02/06/25 12:16 Respiratory Rate 16 02/06/25 12:16 Blood Pressure 152/86 H 02/06/25 12:16 Pulse Oximetry 100 02/06/25 12:16 Oxygen Delivery Method Room Air 02/06/25 12:16 Temperature 96.9 F 02/20/25 07:54 Pulse Rate 71 02/20/25 07:54 Respiratory Rate 20 02/20/25 07:54 Blood Pressure 135/80 02/20/25 07:54 Pulse Oximetry 98 02/20/25 07:54 Oxygen Delivery Method Room Air 02/20/25 07:54 Airway Mallampati Class: II TM Dist: >3cm Neck ROM: Full Denture: Upper and Lower Heart: S1S2 Assessment and Plan Assessment Anesthesia Assessment: Anesthesia Plan Discussed and Chart Reviewed Final Anesthetic Review Family History of Problems with Anesthesia: No History of Problems with Anesthesia: No NPO: Yes ASA Class: III Final Preanesthetic Review: No Changes in Pt Med Stat, Meds/Allgs Chart Reviewed, Consent Obtained/Reviewed and Anes Risks/Benef Reviewed Patient Risk: Intermediate Procedure Risk: Low Anesthetic Plan Anesthetic Plan: GA and Agree w/ Assess. and Plan Disposition: Standard PACU
--- NOTE | 2025-02-20 09:56 | MHC.SHP ---
Pre-Procedural Eval Section A - 24 Hr Update-Section A only Date of Service: 02/20/25 The patient is an INPATIENT: No Changes since office visit: Yes Patient answered all questions; No Cold of Flu in the past 2 weeks, No New Medical Problems and No Changes in Medication The patient has been examined within 24 hours of the surgical procedure. The History & Physical has been completed within 30 days and I have reviewed it.: Yes Section B - Complete if H&P > 30 days Chief Complaint: Unspecified lump in the left breast, upper outer q Allergies: Allergies Allergy/AdvReac Type Severity Reaction Status Date / Time oxycodone (OXYCODONE) Allergy Intermediate RASH,SHAKES, Verified 01/21/25 09:38 shakiness, body shaking, tremors Plan Diagnosis/Plan: Unchanged I have reviewed the history and physical and performed a pertinent physical examination on my patient. No changes have occurred unless specified. Time Spent With Patient Time: Total time managing care of this patient today ____ minutes.
--- NOTE | 2025-02-20 10:33 | W.PM.OPN ---
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 She presents for excision of this enlarging fibroadenoma. Operative findings: Smooth mobile mass in the upper outer quadrant measuring approximately 1.5 cm in diameter Specimen: left breast lump upper outer quadrant Estimated blood loss: 2 mL Complications: none Procedure details: patient was brought to the OR and placed in a supine position. After administering general anesthesia the patient's left breast was prepped with ChloraPrep and draped in a sterile fashion. A surgical time-out was called the consent confirmed. Patient received preoperative antibiotics and Venodyne boots were in place. Local anesthesia consisting of 0.5% Sensorcaine was infiltrated in a curvilinear fashion in the upper outer quadrant of the left breast. An incision was then made with a scalpel and carried out through subcutaneous tissue. Superior and inferior skin flaps were then created using electrocautery. The palpable mass was grasped with an Allis clamp. Electrocautery was then used to dissect the lesion from the surrounding breast tissue with a margin of normal breast tissue circumferentially. The lesion was completely removed and marked with a long suture at the lateral margin, short stitch at the superior margin and looped suture in the posterior margin. This was then passed off the table and sent to pathology for further examination. Wounds were then irrigated with saline solution. Wounds were checked for hemostasis. Deep breast tissue was reapproximated using interrupted 3-0 Polysorb sutures. Superficial breast tissue and dermis were reapproximated using interrupted 3-0 Polysorb sutures. Skin was closed using a running subcuticular 4-0 Polysorb suture. Steri-Strips, 4 x 4 gauze and Tegaderm were then applied. The patient tolerated the procedure well. Sponge, instrument, and needle counts reported as correct. The patient was transferred to PACU in stable condition.
== END 2025-02-20 12:05 | disposition home or self-care (01) ==
PROVIDERS: Nurse Practitioner; PCP Internal Medicine; Visit Provider Surgery
PROC: (CPT 19301; principal; 2025-02-20 10:10)
DX: N63.21 Unspecified lump in the left breast, upper outer quadrant (principal); D24.2 Benign neoplasm of left breast; N60.92 Unspecified benign mammary dysplasia of left breast; Z80.3 Family history of malignant neoplasm of breast; Z85.850 Personal history of malignant neoplasm of thyroid; Z92.3 Personal history of irradiation; E89.0 Postprocedural hypothyroidism; I10 Essential (primary) hypertension; I31.39 Other pericardial effusion (noninflammatory); E78.00 Pure hypercholesterolemia, unspecified; E55.9 Vitamin D deficiency, unspecified; R73.01 Impaired fasting glucose; J45.909 Unspecified asthma, uncomplicated; G43.909 Migraine, unspecified, not intractable, without status migrainosus; R42 Dizziness and giddiness; Z87.442 Personal history of urinary calculi; Z79.899 Other long term (current) drug therapy; Z88.5 Allergy status to narcotic agent; Z90.49 Acquired absence of other specified parts of digestive tract; Z98.84 Bariatric surgery status; Z90.3 Acquired absence of stomach [part of]; Z98.890 Other specified postprocedural states
CPT/HCPCS: 19301; 36415; 84439; 84443; 88307; 93005; J0690; J1100; J2003; J2405; J2704; J3010

== ENCOUNTER → 2025-02-20 07:46 | Outpatient (BNV) | payer OTHER, SELFPAY | PROVIDERS: PCP Internal Medicine; Visit Provider Surgery | DX: N60.22 Fibroadenosis of left breast (principal) | CPT/HCPCS: 19301 ==

== ENCOUNTER 2025-03-04 09:14 | Outpatient (AMB) | payer OTHER, SELFPAY ==
--- NOTE | 2025-03-04 09:17 | MHC.OFFVIS ---
Vital Signs 03/04/25 09:24 Height 5 ft 1 in Weight 196 lb 3.382 oz BMI 37.1 BP 184/90 H Blood Pressure Location Lt brachial Position Sitting Pulse 82 Intake Visit Reasons: S/P Lt breast lumpectomy Intake Note: Patient is seen in office for post op assessment post excision enlarging fibroadenoma left breast upper outer quadrant. 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 Accompanied by: Self / Same As Patient Allergies oxycodone (OXYCODONE) Allergy (Intermediate, Verified 03/04/25 09:24) RASH,SHAKES, shakiness, body shaking, tremors Medication List - Last Reconciled 03/04/25 by Clarence Fu MD albuterol sulfate 90 mcg/actuation 2 puffs inhalation Q6H PRN 30 days ascorbic acid (vitamin C) 500 mg PO DAILY blood pressure monitor As directed cholecalciferol (vitamin D3) 25 mcg PO DAILY clotrimazole 1% (Antifungal (clotrimazole)) 1 appl topical BID diclofenac sodium 1% (Voltaren Arthritis Pain) 4 grams topical QID PRN hydrocodone-acetaminophen 5-325 mg 1 tab PO Q6H PRN Lactobacillus rhamnosus GG (Culturelle) 1 cap PO DAILY levothyroxine 300 mcg PO DAILY@0600 meclizine 25 mg PO TID PRN pyridoxine (vitamin B6) 100 mg PO DAILY 90 days rizatriptan 10 mg PO DAILY PRN vitamin E (dl, acetate) 45 mg PO DAILY HPI Comments Details: 49-year-old female patient returning 1 week following a left breast lumpectomy for an enlarging fibroadenoma. She was noted to have a palpable lump in the upper outer quadrant corresponding to the enlarging fibroadenoma. A previous ultrasound-guided core biopsy performed on 01/10/2024 confirmed a fibroadenoma with no atypia or malignancy. She was subsequently taken to the OR on 02/20/2025 and underwent a left breast lumpectomy. She reports tolerating the procedure well and denies any problems with the incision. There is a small amount of bruising noted around the incision. Subsequent pathology confirmed fibroadenoma; no atypia or malignancy identified. 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 Family history of von Willebrand disease Patellar fracture Closed right ankle fracture Lumbar disc herniation History of renal calculi Vertigo Migraine Asthma Surgical History Hx of lumpectomy (02/20/25) History of partial hysterectomy Hx of cervical discectomy S/P laparoscopic sleeve gastrectomy Sebaceous cyst H/O colonoscopy S/P removal of left ovary Hx of arthroscopy of left knee S/P left knee arthroscopy Hx of tubal ligation History of pubovaginal sling Hx of cystoscopy History of ankle surgery History of cholecystectomy History of bladder surgery History of thyroid surgery History of back surgery History of section Family History Daughter Von Willebrand disease Maternal Grandmother Family history of bladder cancer Family history of breast cancer Sister Family history of breast cancer Maternal Grandfather Family history of lung cancer Other Asthma Diabetes Emphysema of lung Social History Household Members: Family Housing: House Are you a primary manager long term care to a significant other at home: No Do you presently have visiting nurse or other home services: No Alcohol intake: never Comment: correct count Patient Tobacco Use Status: Never used Tobacco e-Cigarette/Vaping Use: Never Used Second Hand Smoke Exposure: No Advance Directives Date on File: 02/06/25 service: No Current occupational status: employed 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/hazards: No Cognitive needs: No Hearing needs: No Vision needs: No Female Reproductive History Menstrual Age of Menarche: 14 Review of Systems Const All systems reviewed & are unremarkable except as noted in HPI and below Physical Exam Vital Signs: Last Vital Signs Pulse 82 03/04/25 09:24 BP 184/90 H 03/04/25 09:24 BMI result Body Mass Index 37.1 Const General: comfortable Nutritional Appearance: well nourished Orientation/consciousness: patient oriented x3 Limitations: no limitations Chest Other: Exam deferred Resp Effort & Inspection: normal respiratory effort Skin Other: Warm and dry Neuro General: patient oriented x3 Assessment & Plan Assessment & Plan (1) Left breast mass: Comment: December 2023 fibroadenoma, January 2025 Code(s): N63.20 - Unspecified lump in the left breast, unspecified quadrant Category: Medical Qualifiers: Breast mass location: upper outer quadrant Qualified Code(s): N63.21 - Unspecified lump in the left breast, upper outer quadrant Plan 49-year-old female patient with an enlarging fibroadenoma suspicious for phyllodes tumor. She returns following a left breast lumpectomy on 02/20/2025. Pathology confirmed fibroadenoma without evidence of phyllodes tumor. Margins of the excision were negative. No further surgical intervention is required at this time. I recommended routine breast follow-up including yearly mammography. She should follow up as needed. Coding Level of Care Code Global (59535) Diagnoses Mass of upper outer quadrant of left breast N63.21 Breast mass location: upper outer quadrant
[2025-03-04 09:24] VITALS: BP 184/90; PULSE 82; BMI 37.1
== END 2025-03-04 09:26 | disposition home or self-care (01) ==
LOC: HO.HGS 09:15
PROVIDERS: PCP Internal Medicine; Visit Provider Surgery
DX: N63.21 Unspecified lump in the left breast, upper outer quadrant (principal)
CPT/HCPCS: 99024

== ENCOUNTER → 2025-03-04 09:14 | Outpatient (BNVA) | payer OTHER, SELFPAY | PROVIDERS: PCP Internal Medicine; Visit Provider Surgery | DX: Z09 Encounter for follow-up examination after completed treatment for conditions other than malignant neoplasm (principal); Z86.0100 Personal history of colon polyps, unspecified; Z98.890 Other specified postprocedural states | CPT/HCPCS: 99212 ==